=== PATIENT | female | born 1965 | race Caucasian/White ===

== ENCOUNTER → 2019-12-29 16:55 | Outpatient (CLI) | payer OTHER, MEDICAID, SELFPAY ==
[2019-12-29 18:02] LABS: Bacteria 0 SEEN /hpf (None Seen); Mucous, Urine 0 SEEN /hpf (<or=2+)
[2019-12-29 18:19] LABS: Color, Urine Straw (Yellow); Glucose, Dipstick Normal (Normal); Ketone-Dipstick Negative (Negative); Leukocyte Esterase-Dipstick 25 /ul (Negative); Nitrite-Dipstick Negative (Negative); Occult Blood-Urine Negative /ul (Negative); Protein-Dipstick Negative (Negative); Urine Bilirubin Dipstick Negative (Negative); Urine Clarity Clear (Clear); Urine Urobilinogen Normal (Normal)
[2019-12-29 18:22] LABS: Absolute Lymphocyte Count 3.42 X10^3/uL (0.83-4.51); Absolute Neutrophil Count 4.7 X10^3/uL (2.0-7.7); Basophil# 0.06 X10^3/uL; Basophil% 0.6 % (0-1); Eosinophils% 2.1 % (0-5); Hematocrit 43.5 % (37-47); Hemoglobin 14.3 g/dL (12.0-15.0); Lymphocyte # 3.42 X10^3/ul (4.0); Lymphocyte % 36.6 % (19-41); Mean Corp Hgb Conc 32.9 g/dL (32-36); Mean Corpuscular Volume 88.2 fL (81-99); Mean Platelet Vol. 10.5 fl (6.2-12.0); Monocyte# 0.88 X10^3/uL; Monocyte% 9.4 % (0-10); NRBC Flagged by Analyzer 0 % (0-5); Neutrophil # 4.73 X10^3/uL (2.7-7.7); Neutrophil % 50.8 % (47-70); Platelet Count 319 K/mm3 (150-450); RBC Distribution Width SD 41.6 fl (35.1-43.9); Red Blood Count 4.93 M/mm3 (4.2-5.4); White Blood Count 9.3 K/mm3 (4.4-11.0)
[2019-12-29 18:33] LABS: Squamous Epithelial Cells - UA 0-5 SEEN /hpf (5-10)
[2019-12-29 18:35] LABS: Red Blood Cells-Urine 0-5 SEEN /hpf (0-5); White Blood Cells 0-5 SEEN /hpf (0-5)
[2019-12-29 18:59] LABS: Vitamin B12 1342 pg/mL (211-911); Vitamin D,25 Hydroxy 45.3 ng/mL
[2019-12-29 19:09] LABS: ALB/GLOB Ratio 1.2 RATIO (0.9-2.4); AST(SGOT) 44 U/L (15-37); Alanine Aminotransfer ALT/SGPT 69 U/L (13-56); Albumin, Serum 4.3 g/dL (3.2-5.0); Alkaline Phosphatase 86 U/L (45-117); Anion Gap 7 (5-15); BUN 14 mg/dL (7-18); BUN/Creat Ratio 17.2 RATIO (10-20); Calcium,Total 9.5 mg/dL (8.5-10.1); Chloride 102 mmol/L (98-107); Cholesterol 148 mg/dL (200); Creatinine, Serum 0.81 mg/dL (0.55-1.02); EST Glomerular Filtration Rate 77 mL/min (>60); Est Glom Filt Rate - Afr Amer 93 mL/min (>60); Globulin 3.7 g/dL (2.2-4.2); Glucose 120 mg/dL (74-106); High Density Lipoprotein 41 mg/dL; Potassium 3.5 mmol/L (3.5-5.1); Sodium Level 138 mmol/L (136-145); Triglycerides 255 mg/dL; Very Low Density Lipoprotein 51 mg/dL (5-40)
[2019-12-29 19:15] LABS: Hemoglobin A1c 6.7 % (4.2-6.3)
[2020-01-02 11:33] LABS: Hepatitis B Surface Antibody Reactive; Hepatitis B Surface Antigen Non-Reactive (Nonreactive); Hepatitis C Antibody Non-Reactive (Nonreactive)
[2020-01-02 19:27] LABS: Vitamin B1, Thiamine 182.8 nmol/L (66.5-200.0)
== END ==
PROVIDERS: PCP Internal Medicine; Referring Provider Family Medicine; Visit Provider Family Medicine
DX: E55.9 Vitamin D deficiency, unspecified (principal); E53.9 Vitamin B deficiency, unspecified; E78.5 Hyperlipidemia, unspecified; I10 Essential (primary) hypertension; R73.09 Other abnormal glucose
CPT/HCPCS: 80053; 80061; 81001; 82306; 82607; 83036; 84425; 84443; 85025; 86706; 86803; 87340

== ENCOUNTER → 2020-02-16 11:00 | Outpatient (CLI) | payer OTHER, SELFPAY ==
[2020-02-16 12:26] LABS: Anion Gap 8 (5-15); BUN 17 mg/dL (7-18); BUN/Creat Ratio 20.8 RATIO (10-20); Calcium,Total 9.9 mg/dL (8.5-10.1); Chloride 103 mmol/L (98-107); Creatinine, Serum 0.82 mg/dL (0.55-1.02); EST Glomerular Filtration Rate 77 mL/min (>60); Est Glom Filt Rate - Afr Amer 93 mL/min (>60); Glucose 92 mg/dL (74-106); Potassium 4.2 mmol/L (3.5-5.1); Sodium Level 139 mmol/L (136-145)
== END ==
PROVIDERS: PCP Family Medicine; Referring Provider Family Medicine; Visit Provider Family Medicine
DX: I10 Essential (primary) hypertension (principal)
CPT/HCPCS: 36415; 80048

== ENCOUNTER → 2020-03-07 15:42 | Outpatient (CLI) | payer OTHER, SELFPAY ==
[2020-03-07 18:11] LABS: Anion Gap 10 (5-15); BUN 18 mg/dL (7-18); BUN/Creat Ratio 21.1 RATIO (10-20); Calcium,Total 9.7 mg/dL (8.5-10.1); Chloride 102 mmol/L (98-107); Creatinine, Serum 0.86 mg/dL (0.55-1.02); EST Glomerular Filtration Rate 73 mL/min (>60); Est Glom Filt Rate - Afr Amer 88 mL/min (>60); Glucose 124 mg/dL (74-106); Potassium 3.9 mmol/L (3.5-5.1); Sodium Level 138 mmol/L (136-145)
== END ==
PROVIDERS: PCP Family Medicine; Visit Provider Family Medicine
DX: I10 Essential (primary) hypertension (principal)
CPT/HCPCS: 36415; 80048

== ENCOUNTER → 2020-07-17 09:56 | Outpatient (CLI) | payer OTHER, SELFPAY ==
[2020-07-17 12:35] LABS: Hemoglobin A1c 6.2 % (3.8-5.6)
[2020-07-17 12:44] LABS: ALB/GLOB Ratio 1.2 RATIO (0.9-2.4); AST(SGOT) 46 U/L (15-37); Alanine Aminotransfer ALT/SGPT 66 U/L (13-56); Albumin, Serum 4.1 g/dL (3.2-5.0); Alkaline Phosphatase 68 U/L (45-117); Anion Gap 8 (5-15); BUN 13 mg/dL (7-18); BUN/Creat Ratio 16.6 RATIO (10-20); Calcium,Total 9.7 mg/dL (8.5-10.1); Chloride 107 mmol/L (98-107); Cholesterol 167 mg/dL (200); Creatinine, Serum 0.78 mg/dL (0.55-1.02); EST Glomerular Filtration Rate 81 mL/min (>60); Est Glom Filt Rate - Afr Amer 98 mL/min (>60); Globulin 3.3 g/dL (2.2-4.2); Glucose 129 mg/dL (74-106); High Density Lipoprotein 41 mg/dL; Potassium 4.3 mmol/L (3.5-5.1); Protein, Total 7.4 g/dL (6.4-8.2); Sodium Level 141 mmol/L (136-145); Triglycerides 311 mg/dL; Very Low Density Lipoprotein 62 mg/dL (5-40)
[2020-07-17 13:02] LABS: Microalbumin,Random Urine 13.6 mg/L (NO RANGE EST.); Microalbumin:Creatinine Ratio 14.5 mg/g CRE (<30 mg/g CRE)
[2020-07-23 15:27] LABS: Vitamin B1, Thiamine 173.3 nmol/L (66.5-200.0)
== END ==
PROVIDERS: PCP Family Medicine; Referring Provider Family Medicine; Visit Provider Family Medicine
DX: R94.5 Abnormal results of liver function studies (principal); E11.9 Type 2 diabetes mellitus without complications; E78.5 Hyperlipidemia, unspecified; E55.9 Vitamin D deficiency, unspecified
CPT/HCPCS: 36415; 80053; 80061; 82043; 82306; 82570; 83036; 84425

== ENCOUNTER → 2020-11-15 16:38 | Outpatient (CLI) | payer OTHER, SELFPAY ==
[2020-11-15 17:33] LABS: Absolute Lymphocyte Count 2.58 X10^3/uL (0.83-4.51); Absolute Neutrophil Count 4.6 X10^3/uL (2.0-7.7); Basophil# 0.04 X10^3/uL; Basophil% 0.5 % (0-1); Eosinophil# 0.14 X10^3/uL; Eosinophils% 1.8 % (0-5); Hemoglobin 13.2 g/dL (12.0-15.0); Lymphocyte # 2.58 X10^3/ul (4.0); Lymphocyte % 32.4 % (19-41); Mean Corp Hgb Conc 32.2 g/dL (32-36); Mean Corpuscular Hgb 28.6 pg (27.0-32.0); Mean Corpuscular Volume 88.9 fL (81-99); Mean Platelet Vol. 10.1 fl (6.2-12.0); Monocyte# 0.56 X10^3/uL; NRBC Flagged by Analyzer 0 % (0-5); Neutrophil # 4.57 X10^3/uL (2.7-7.7); Neutrophil % 57.3 % (47-70); Platelet Count 327 K/mm3 (150-450); RBC Distribution Width CV 13.1 % (11.6-14.6); RBC Distribution Width SD 42.7 fl (35.1-43.9); Red Blood Count 4.61 M/mm3 (4.2-5.4)
[2020-11-15 18:14] LABS: Vitamin D,25 Hydroxy 60.7 ng/mL
[2020-11-15 18:15] LABS: Hemoglobin A1c 6.7 % (3.8-5.6)
[2020-11-15 18:21] LABS: ALB/GLOB Ratio 1.2 RATIO (0.9-2.4); AST(SGOT) 58 U/L (15-37); Alanine Aminotransfer ALT/SGPT 75 U/L (13-56); Albumin, Serum 4.1 g/dL (3.2-5.0); Alkaline Phosphatase 78 U/L (45-117); Anion Gap 8 (5-15); BUN 19 mg/dL (7-18); BUN/Creat Ratio 17.9 RATIO (10-20); Calcium,Total 9.5 mg/dL (8.5-10.1); Chloride 103 mmol/L (98-107); Cholesterol 152 mg/dL (200); Creatinine, Serum 1.06 mg/dL (0.55-1.02); EST Glomerular Filtration Rate 57 mL/min (>60); Est Glom Filt Rate - Afr Amer 69 mL/min (>60); Globulin 3.4 g/dL (2.2-4.2); Glucose 187 mg/dL (74-106); High Density Lipoprotein 41 mg/dL; Potassium 3.9 mmol/L (3.5-5.1); Protein, Total 7.5 g/dL (6.4-8.2); Sodium Level 138 mmol/L (136-145); Triglycerides 332 mg/dL; Very Low Density Lipoprotein 66 mg/dL (5-40)
[2021-05-13 10:29] LABS: Vitamin B12 1209 pg/mL (211-911)
[2021-05-13 10:40] LABS: Microalbumin,Random Urine 7.8 mg/L (NO RANGE EST.); Microalbumin:Creatinine Ratio 12.2 mg/g CRE (<30 mg/g CRE)
[2021-05-19 03:06] LABS: VITAMIN B6 71.6 ug/L (2.0-32.8)
[2021-05-19 08:06] LABS: Vitamin B1, Thiamine 210.1 nmol/L (66.5-200.0)
== END ==
PROVIDERS: PCP Family Medicine; Referring Provider Family Medicine; Visit Provider Family Medicine
DX: I10 Essential (primary) hypertension (principal); E11.9 Type 2 diabetes mellitus without complications; E78.5 Hyperlipidemia, unspecified; E55.9 Vitamin D deficiency, unspecified
CPT/HCPCS: 36415; 80053; 80061; 82043; 82306; 82570; 82607; 83036; 84207; 84425; 85025

== ENCOUNTER → 2020-11-28 11:14 | Outpatient (CLI) | payer OTHER, SELFPAY ==
[2020-11-28 13:13] LABS: Anion Gap 8 (5-15); BUN 18 mg/dL (7-18); BUN/Creat Ratio 22.9 RATIO (10-20); Calcium,Total 10.3 mg/dL (8.5-10.1); Chloride 104 mmol/L (98-107); Creatinine, Serum 0.79 mg/dL (0.55-1.02); EST Glomerular Filtration Rate 80 mL/min (>60); Est Glom Filt Rate - Afr Amer 97 mL/min (>60); Glucose 87 mg/dL (74-106); Potassium 4.3 mmol/L (3.5-5.1); Sodium Level 135 mmol/L (136-145)
== END ==
PROVIDERS: PCP Family Medicine; Referring Provider Family Medicine; Visit Provider Family Medicine
DX: R94.4 Abnormal results of kidney function studies (principal)
CPT/HCPCS: 36415; 80048

== ENCOUNTER 2021-01-03 14:39 | Outpatient (RCR) | payer OTHER, SELFPAY ==
[2021-01-03] MEDS: COVID-19 VACC, MRNA(PFIZER)/PF 30 MCG/0.3 ML SYRINGE IM (18:01)
[2021-01-24] MEDS: COVID-19 VACC, MRNA(PFIZER)/PF 30 MCG/0.3 ML SYRINGE IM (17:50)
== END 2021-04-02 23:59 ==
LOC: IMMUN 14:39
PROVIDERS: PCP Family Medicine; Referring Provider Family Medicine; Visit Provider Family Medicine
DX: Z23 Encounter for immunization (principal)
CPT/HCPCS: 0001A; 0002A; 91300

== ENCOUNTER → 2021-05-13 08:31 | Outpatient (CLI) | payer OTHER, SELFPAY ==
[2021-03-05 11:35] VITALS: BMI 34.4
== END ==
PROVIDERS: PCP Family Medicine; Visit Provider Family Medicine
DX: R69 Illness, unspecified (principal)

== ENCOUNTER → 2021-05-15 16:27 | Outpatient (CLI) | payer OTHER, SELFPAY ==
[2021-03-05 11:35] VITALS: BMI 34.4
--- NOTE | 2021-05-15 16:39 | RAD_ITS ---
STUDY: X-RAY - LUMBAR SPINE REASON FOR EXAM: Female, 55 years old. Severe low back pain for 2 weeks with history of multiple prior lumbar spine surgery TECHNIQUE: 4 view(s) of the lumbar spine were obtained. COMPARISON: None FINDINGS: Normal lumbar lordosis. There is no substantial scoliosis. There is a normal alignment of the vertebrae. Bilateral pedicular screws and posterior fusion hardware at L5-S1 with disc implant. Laminectomy. Endplate sclerosis, spondylosis and disc space narrowing at L4-L5. Lesser amount of disc space narrowing at the remaining lumbar levels. There is no demonstrated fracture. Neurostimulator device extending from lower thoracic spine partially visualized. Cholecystectomy clips are present. RAD/L/S Spine Min 4 Views IMPRESSION: Degenerative and operative changes, as above. Electronically Signed: Jose Rafael Metcalf MD ([place]) at 17:21 EDT , Service support ,
[2021-05-15 17:29] LABS: Absolute Lymphocyte Count 2.83 X10^3/uL (0.83-4.51); Basophil# 0.05 X10^3/uL; Basophil% 0.6 % (0-1); Eosinophil# 0.25 X10^3/uL; Eosinophils% 3.1 % (0-5); Hematocrit 41.3 % (37-47); Hemoglobin 13.4 g/dL (12.0-15.0); Lymphocyte # 2.83 X10^3/ul (0.83-4.51); Lymphocyte % 35.6 % (19-41); Mean Corp Hgb Conc 32.4 g/dL (32-36); Mean Corpuscular Hgb 28.8 pg (27.0-32.0); Mean Corpuscular Volume 88.6 fL (81-99); Mean Platelet Vol. 10.1 fl (6.2-12.0); Monocyte% 10.1 % (0-10); NRBC Flagged by Analyzer 0 % (0-5); Neutrophil # 3.96 X10^3/uL (2.7-7.7); Neutrophil % 49.7 % (47-70); Platelet Count 319 K/mm3 (150-450); RBC Distribution Width CV 13.2 % (11.6-14.6); RBC Distribution Width SD 42.7 fl (35.1-43.9); Red Blood Count 4.66 M/mm3 (4.2-5.4)
[2021-05-15 17:58] LABS: Hemoglobin A1c 6.5 % (3.8-5.6)
[2021-05-15 18:12] LABS: ALB/GLOB Ratio 1.3 RATIO (0.9-2.4); AST(SGOT) 54 U/L (15-37); Alanine Aminotransfer ALT/SGPT 69 U/L (13-56); Albumin, Serum 4.2 g/dL (3.2-5.0); Alkaline Phosphatase 72 U/L (45-117); Anion Gap 5 (5-15); BUN 16 mg/dL (7-18); BUN/Creat Ratio 19.9 RATIO (10-20); Calcium,Total 9.6 mg/dL (8.5-10.1); Chloride 102 mmol/L (98-107); Cholesterol 202 mg/dL (200); EST Glomerular Filtration Rate 78 mL/min (>60); Est Glom Filt Rate - Afr Amer 94 mL/min (>60); Globulin 3.2 g/dL (2.2-4.2); Glucose 113 mg/dL (74-106); High Density Lipoprotein 43 mg/dL; Potassium 4.5 mmol/L (3.5-5.1); Protein, Total 7.4 g/dL (6.4-8.2); Sodium Level 139 mmol/L (136-145); Triglycerides 418 mg/dL
== END ==
PROVIDERS: PCP Family Medicine; Visit Provider Family Medicine
DX: I10 Essential (primary) hypertension (principal); E11.9 Type 2 diabetes mellitus without complications; E78.5 Hyperlipidemia, unspecified; E55.9 Vitamin D deficiency, unspecified; M51.36 Other intervertebral disc degeneration, lumbar region; M47.816 Spondylosis without myelopathy or radiculopathy, lumbar region; M48.061 Spinal stenosis, lumbar region without neurogenic claudication
CPT/HCPCS: 36415; 72110; 80053; 80061; 82306; 83036; 85025

== ENCOUNTER → 2021-06-14 | Outpatient (CLI) | payer OTHER, SELFPAY ==
[2021-06-18 16:59] LABS: HPV APTIMA, High Risk Negative (Negative); HPV Reflexed? YES, CHARGE PATIENT
== END | disposition home or self-care (01) ==
PROVIDERS: PCP Family Medicine; Referring Provider Registered Nurse; Visit Provider Registered Nurse
DX: Z12.4 Encounter for screening for malignant neoplasm of cervix (principal)
CPT/HCPCS: 87624; 88175; G0145

== ENCOUNTER 2021-12-09 09:30 | Outpatient (CLI) | payer OTHER, SELFPAY | END 2021-12-09 23:59 | disposition home or self-care (01) | LOC: MFPLAB 09:31 | PROVIDERS: PCP Family Medicine; Visit Provider Family Medicine | DX: R69 Illness, unspecified (principal) ==

== ENCOUNTER 2021-12-11 13:41 | Outpatient (CLI) | payer OTHER, SELFPAY ==
[2021-12-11 18:12] LABS: Absolute Lymphocyte Count 2.63 X10^3/uL (0.83-4.51); Absolute Neutrophil Count 3.6 X10^3/uL (2.0-7.7); Basophil# 0.04 X10^3/uL; Basophil% 0.6 % (0-1); Eosinophil# 0.15 X10^3/uL; Eosinophils% 2.1 % (0-5); Hematocrit 36.4 % (37-47); Hemoglobin 11.5 g/dL (12.0-15.0); Lymphocyte # 2.63 X10^3/ul (0.83-4.51); Lymphocyte % 37.5 % (19-41); Mean Corp Hgb Conc 31.6 g/dL (32-36); Mean Corpuscular Hgb 28.3 pg (27.0-32.0); Mean Corpuscular Volume 89.4 fL (81-99); Mean Platelet Vol. 10.7 fl (6.2-12.0); Monocyte# 0.55 X10^3/uL; Monocyte% 7.8 % (0-10); NRBC Flagged by Analyzer 0 % (0-5); Neutrophil # 3.62 X10^3/uL (2.7-7.7); Neutrophil % 51.7 % (47-70); Platelet Count 327 K/mm3 (150-450); RBC Distribution Width CV 13.1 % (11.6-14.6); RBC Distribution Width SD 42.5 fl (35.1-43.9); Red Blood Count 4.07 M/mm3 (4.2-5.4)
[2021-12-11 18:36] LABS: Vitamin B12 1401 pg/mL (211-911); Vitamin D,25 Hydroxy 61.8 ng/mL
[2021-12-11 18:46] LABS: ALB/GLOB Ratio 1.2 RATIO (0.9-2.4); AST(SGOT) 32 U/L (15-37); Alanine Aminotransfer ALT/SGPT 45 U/L (13-56); Albumin, Serum 4.1 g/dL (3.2-5.0); Alkaline Phosphatase 68 U/L (45-117); Anion Gap 8 (5-15); BUN 13 mg/dL (7-18); Calcium,Total 9.6 mg/dL (8.5-10.1); Chloride 104 mmol/L (98-107); Cholesterol 123 mg/dL (200); Creatinine, Serum 0.76 mg/dL (0.55-1.02); EST Glomerular Filtration Rate 82 mL/min (>60); Est Glom Filt Rate - Afr Amer 100 mL/min (>60); Globulin 3.4 g/dL (2.2-4.2); Glucose 82 mg/dL (74-106); High Density Lipoprotein 43 mg/dL; Protein, Total 7.5 g/dL (6.4-8.2); Sodium Level 137 mmol/L (136-145); Thyroid Stim Hormone (TSH) 2.14 uIU/mL (0.358-3.74); Triglycerides 225 mg/dL; Very Low Density Lipoprotein 45 mg/dL (5-40)
[2021-12-11 20:28] LABS: Hemoglobin A1c 6.2 % (3.8-5.6)
[2021-12-13 15:03] LABS: Ferritin 86 ng/mL (8-252); Iron 74 ug/dL (50-170); Iron Binding Capacity,Total 458 ug/dL (250-450); PERCENT IRON SATURATION 16.2 % (15.0-55.0)
[2021-12-26 19:07] LABS: VITAMIN B6 149.6 ug/L (2.0-32.8)
[2021-12-26 19:10] LABS: Vitamin B1, Thiamine 158.1 nmol/L (66.5-200.0)
== END 2021-12-11 23:59 | disposition home or self-care (01) ==
LOC: MFPLAB 13:42
PROVIDERS: PCP Family Medicine; Referring Provider Family Medicine; Visit Provider Family Medicine
DX: E11.59 Type 2 diabetes mellitus with other circulatory complications (principal); E11.69 Type 2 diabetes mellitus with other specified complication; E53.9 Vitamin B deficiency, unspecified; E55.9 Vitamin D deficiency, unspecified; D64.9 Anemia, unspecified
CPT/HCPCS: 36415; 80053; 80061; 82306; 82607; 82728; 83036; 83540; 83550; 84207; 84425; 84443; 85025

== ENCOUNTER → 2022-05-09 | Outpatient (CLI) | payer OTHER, SELFPAY ==
[2022-05-09 10:03] LABS: Absolute Lymphocyte Count 2.41 X10^3/uL (0.83-4.51); Absolute Neutrophil Count 3.5 X10^3/uL (2.0-7.7); Basophil# 0.05 X10^3/uL; Basophil% 0.7 % (0-1); Eosinophil# 0.18 X10^3/uL; Eosinophils% 2.6 % (0-5); Hematocrit 39.3 % (37-47); Hemoglobin 12.5 g/dL (12.0-15.0); Lymphocyte # 2.41 X10^3/ul (0.83-4.51); Lymphocyte % 35.2 % (19-41); Mean Corp Hgb Conc 31.8 g/dL (32-36); Mean Corpuscular Hgb 28.5 pg (27.0-32.0); Mean Corpuscular Volume 89.5 fL (81-99); Mean Platelet Vol. 10.1 fl (6.2-12.0); Monocyte# 0.69 X10^3/uL; Monocyte% 10.1 % (0-10); NRBC Flagged by Analyzer 0 % (0-5); Neutrophil # 3.47 X10^3/uL (2.7-7.7); Neutrophil % 50.7 % (47-70); Platelet Count 298 K/mm3 (150-450); RBC Distribution Width CV 14.1 % (11.6-14.6); RBC Distribution Width SD 46.3 fl (35.1-43.9); Red Blood Count 4.39 M/mm3 (4.2-5.4); White Blood Count 6.9 K/mm3 (4.4-11.0)
[2022-05-09 10:46] LABS: ALB/GLOB Ratio 1.2 RATIO (0.9-2.4); AST(SGOT) 38 U/L (15-37); Alanine Aminotransfer ALT/SGPT 54 U/L (13-56); Albumin, Serum 4.1 g/dL (3.2-5.0); Alkaline Phosphatase 67 U/L (45-117); Anion Gap 8 (5-15); BUN 17 mg/dL (7-18); BUN/Creat Ratio 23.2 RATIO (10-20); Calcium,Total 9.5 mg/dL (8.5-10.1); Chloride 105 mmol/L (98-107); Cholesterol 186 mg/dL (200); Creatinine, Serum 0.73 mg/dL (0.55-1.02); EST Glomerular Filtration Rate 86 mL/min (>60); Est Glom Filt Rate - Afr Amer 105 mL/min (>60); Globulin 3.4 g/dL (2.2-4.2); Glucose 133 mg/dL (74-106); High Density Lipoprotein 45 mg/dL; Potassium 4.3 mmol/L (3.5-5.1); Protein, Total 7.5 g/dL (6.4-8.2); Sodium Level 137 mmol/L (136-145); Triglycerides 217 mg/dL; Very Low Density Lipoprotein 43 mg/dL (5-40)
[2022-05-09 10:47] LABS: Vitamin D,25 Hydroxy 48.2 ng/mL
[2022-05-09 14:57] LABS: Hemoglobin A1c 6.1 % (3.8-5.6)
== END | disposition home or self-care (01) ==
LOC: MFPLAB 08:54
PROVIDERS: PCP Family Medicine; Referring Provider Family Medicine; Visit Provider Family Medicine
DX: E11.59 Type 2 diabetes mellitus with other circulatory complications (principal); E11.69 Type 2 diabetes mellitus with other specified complication; E55.9 Vitamin D deficiency, unspecified
CPT/HCPCS: 36415; 80053; 80061; 82306; 83036; 85025

== ENCOUNTER → 2022-08-14 | Outpatient (CLI) | payer OTHER, SELFPAY | END | disposition home or self-care (01) | PROVIDERS: PCP Family Medicine; Visit Provider Family Medicine | DX: Z20.822 Contact with and (suspected) exposure to COVID-19 (principal) | CPT/HCPCS: 87635; U0003; U0005 ==

== ENCOUNTER → 2022-12-02 | Outpatient (CLI) | payer OTHER, SELFPAY | END | disposition home or self-care (01) | LOC: MFPLAB 09:50 | PROVIDERS: PCP Family Medicine; Referring Provider Family Medicine; Visit Provider Family Medicine | DX: R69 Illness, unspecified (principal) ==

== ENCOUNTER 2022-12-08 09:33 | Outpatient (CLI) | payer OTHER, SELFPAY ==
[2022-12-08 12:17] LABS: Absolute Lymphocyte Count 2.16 X10^3/uL (0.83-4.51); Absolute Neutrophil Count 4.1 X10^3/uL (2.0-7.7); Basophil# 0.06 X10^3/uL; Basophil% 0.8 % (0-1); Eosinophil# 0.19 X10^3/uL; Eosinophils% 2.7 % (0-5); Hematocrit 40.2 % (37-47); Hemoglobin 12.7 g/dL (12.0-15.0); Lymphocyte # 2.16 X10^3/ul (0.83-4.51); Lymphocyte % 30.3 % (19-41); Mean Corp Hgb Conc 31.6 g/dL (32-36); Mean Corpuscular Hgb 27.9 pg (27.0-32.0); Mean Corpuscular Volume 88.2 fL (81-99); Mean Platelet Vol. 10.5 fl (6.2-12.0); Monocyte# 0.63 X10^3/uL; Monocyte% 8.8 % (0-10); NRBC Flagged by Analyzer 0 % (0-5); Neutrophil # 4.06 X10^3/uL (2.7-7.7); Platelet Count 296 K/mm3 (150-450); RBC Distribution Width CV 13.3 % (11.6-14.6); RBC Distribution Width SD 43.2 fl (35.1-43.9); Red Blood Count 4.56 M/mm3 (4.2-5.4); White Blood Count 7.1 K/mm3 (4.4-11.0)
[2022-12-08 12:41] LABS: Vitamin B12 838 pg/mL (211-911); Vitamin D,25 Hydroxy 45.8 ng/mL
[2022-12-08 12:46] LABS: ALB/GLOB Ratio 1.1 RATIO (0.9-2.4); AST(SGOT) 67 U/L (15-37); Alanine Aminotransfer ALT/SGPT 65 U/L (13-56); Alkaline Phosphatase 87 U/L (45-117); Anion Gap 7 (5-15); BUN 23 mg/dL (7-18); BUN/Creat Ratio 26.4 RATIO (10-20); Calcium,Total 9.5 mg/dL (8.5-10.1); Chloride 106 mmol/L (98-107); Cholesterol 153 mg/dL (200); Creatinine, Serum 0.87 mg/dL (0.55-1.02); EST Glomerular Filtration Rate 71 mL/min (>60); Est Glom Filt Rate - Afr Amer 86 mL/min (>60); Globulin 3.7 g/dL (2.2-4.2); Glucose 150 mg/dL (74-106); High Density Lipoprotein 41 mg/dL; Protein, Total 7.7 g/dL (6.4-8.2); Sodium Level 139 mmol/L (136-145); T4 Free Direct 0.85 ng/dL (0.76-1.46); Thyroid Stim Hormone (TSH) 2.27 uIU/mL (0.358-3.74); Triglycerides 198 mg/dL; Very Low Density Lipoprotein 40 mg/dL (5-40)
[2022-12-08 12:49] LABS: Hemoglobin A1c 6.8 % (3.8-5.6); Microalbumin,Random Urine 46.6 mg/L (NO RANGE EST.); Microalbumin:Creatinine Ratio 41.6 mg/g CRE (<30 mg/g CRE)
[2022-12-12 19:18] LABS: VITAMIN B6 41.3 ug/L (3.4-65.2); Vitamin B1, Thiamine 144.7 nmol/L (66.5-200.0)
== END 2022-12-08 23:59 | disposition home or self-care (01) ==
LOC: MFPLAB 09:33
PROVIDERS: PCP Family Medicine; Visit Provider Family Medicine
DX: E11.59 Type 2 diabetes mellitus with other circulatory complications (principal); E53.9 Vitamin B deficiency, unspecified; E55.9 Vitamin D deficiency, unspecified; Z01.419 Encounter for gynecological examination (general) (routine) without abnormal findings
CPT/HCPCS: 80053; 80061; 82043; 82306; 82570; 82607; 83036; 84207; 84425; 84439; 84443; 85025

== ENCOUNTER → 2023-04-07 | Outpatient (CLI) | payer OTHER, SELFPAY ==
[2023-04-07 12:20] LABS: Absolute Lymphocyte Count 2.26 X10^3/uL (0.83-4.51); Absolute Neutrophil Count 3.9 X10^3/uL (2.0-7.7); Basophil# 0.08 X10^3/uL; Basophil% 1.1 % (0-1); Eosinophil# 0.18 X10^3/uL; Eosinophils% 2.5 % (0-5); Lymphocyte # 2.26 X10^3/ul (0.83-4.51); Lymphocyte % 31.9 % (19-41); Mean Corp Hgb Conc 31.6 g/dL (32-36); Mean Corpuscular Volume 85.6 fL (81-99); Mean Platelet Vol. 10.4 fl (6.2-12.0); Monocyte# 0.59 X10^3/uL; Monocyte% 8.3 % (0-10); NRBC Flagged by Analyzer 0 % (0-5); Neutrophil # 3.93 X10^3/uL (2.7-7.7); Neutrophil % 55.6 % (47-70); Platelet Count 323 K/mm3 (150-450); RBC Distribution Width CV 14.3 % (11.6-14.6); RBC Distribution Width SD 44.8 fl (35.1-43.9); Red Blood Count 4.44 M/mm3 (4.2-5.4); White Blood Count 7.1 K/mm3 (4.4-11.0)
[2023-04-07 12:45] LABS: Hemoglobin A1c 7.1 % (3.8-5.6)
[2023-04-07 12:54] LABS: Vitamin B12 1313 pg/mL (211-911); Vitamin D,25 Hydroxy 63.3 ng/mL
[2023-04-07 13:01] LABS: ALB/GLOB Ratio 1.1 RATIO (0.9-2.4); AST(SGOT) 79 U/L (15-37); Alanine Aminotransfer ALT/SGPT 70 U/L (13-56); Albumin, Serum 4.1 g/dL (3.2-5.0); Alkaline Phosphatase 106 U/L (45-117); Anion Gap 10 (5-15); BUN 12 mg/dL (7-18); BUN/Creat Ratio 15.1 RATIO (10-20); Calcium,Total 9.3 mg/dL (8.5-10.1); Chloride 105 mmol/L (98-107); Cholesterol 157 mg/dL (200); EST Glomerular Filtration Rate 78 mL/min (>60); Est Glom Filt Rate - Afr Amer 95 mL/min (>60); Globulin 3.6 g/dL (2.2-4.2); Glucose 146 mg/dL (74-106); High Density Lipoprotein 43 mg/dL; Potassium 4.3 mmol/L (3.5-5.1); Protein, Total 7.7 g/dL (6.4-8.2); Sodium Level 138 mmol/L (136-145); Thyroid Stim Hormone (TSH) 1.86 uIU/mL (0.358-3.74); Triglycerides 224 mg/dL; Very Low Density Lipoprotein 45 mg/dL (5-40)
[2023-04-10 19:07] LABS: VITAMIN B6 33.6 ug/L (3.4-65.2)
== END | disposition home or self-care (01) ==
LOC: MFPLAB 10:18
PROVIDERS: PCP Family Medicine; Visit Provider Family Medicine
DX: E11.9 Type 2 diabetes mellitus without complications (principal); E55.9 Vitamin D deficiency, unspecified
CPT/HCPCS: 36415; 80053; 80061; 82306; 82607; 83036; 84207; 84425; 84443; 85025

== ENCOUNTER 2023-08-18 09:55 | Outpatient (CLI) | payer OTHER, SELFPAY ==
[2023-08-18 12:55] LABS: Vitamin B12 818 pg/mL (211-911); Vitamin D,25 Hydroxy 64.1 ng/mL
[2023-08-18 12:57] LABS: T4 Free Direct 0.83 ng/dL (0.76-1.46); Thyroid Stim Hormone (TSH) 1.38 uIU/mL (0.358-3.74)
[2023-08-22 01:06] LABS: Vitamin B1, Thiamine 154.4 nmol/L (66.5-200.0)
== END 2023-08-18 23:59 | disposition home or self-care (01) ==
LOC: MFPLAB 09:56
PROVIDERS: PCP Family Medicine; Visit Provider Family Medicine
DX: E53.9 Vitamin B deficiency, unspecified (principal); E11.59 Type 2 diabetes mellitus with other circulatory complications; I10 Essential (primary) hypertension; E55.9 Vitamin D deficiency, unspecified
CPT/HCPCS: 36415; 82306; 82607; 84425; 84439; 84443

== ENCOUNTER → 2023-10-01 | Outpatient (CLI) | payer OTHER, SELFPAY ==
--- NOTE | 2023-10-01 14:53 | BI_ITS ---
MAMMOGRAPHY - BILATERAL SCREENING REASON FOR EXAM: Female, 58 years old. Routine annual screening examination. PERTINENT HISTORY: Aunt with breast cancer. TECHNIQUE: Digital bilateral breast francine (3D mammographic acquisition) in the CC and MLO projections. 2-D mediolateral oblique (MLO) and craniocaudad (CC) views of both breasts were obtained. CAD: Full Field Digital Mammography with Computer Added Detection was performed. COMPARISON: Comparison is made with prior outside examination dated May 14, 2018. FINDINGS: Breast Composition: The breasts are heterogeneously dense, which may obscure small masses. There are no dominant masses or suspicious calcifications. Stable asymmetry of breast tissue where more breast tissue is seen in the upper lateral aspect of the left breast as compared to the right side. No other significant abnormalities are identified. BI/SCRN MAMM (CAD)W/FRANCINE BILAT IMPRESSION: Stable bilateral screening mammogram. Yearly follow-up mammogram recommended. (A) ASSESSMENT CATEGORY: BIRADS Category 2: Benign. A letter regarding these results will be sent to the patient by the facility within 30 days. Approximately 10% of breast cancers are not detected by mammography. A normal mammogram should not delay biopsy of a clinically suspicious abnormality. [id number] Electronically Signed: Harrison Amaya MD at 9:03 EST ,
== END | disposition home or self-care (01) ==
LOC: OPBI 14:51
PROVIDERS: PCP Family Medicine; Referring Provider Family Medicine; Visit Provider Family Medicine
DX: Z12.31 Encounter for screening mammogram for malignant neoplasm of breast (principal)
CPT/HCPCS: 77063; 77067

== ENCOUNTER → 2023-12-29 | Outpatient (CLI) | payer OTHER, SELFPAY ==
[2023-12-29 12:39] LABS: Absolute Neutrophil Count 3.3 X10^3/uL (2.0-7.7); Basophil# 0.06 X10^3/uL; Eosinophil# 0.13 X10^3/uL; Eosinophils% 2.1 % (0-5); Hematocrit 37.2 % (37-47); Hemoglobin 12.1 g/dL (12.0-15.0); Lymphocyte % 36.7 % (19-41); Mean Corp Hgb Conc 32.5 g/dL (32-36); Mean Corpuscular Hgb 28.6 pg (27.0-32.0); Mean Corpuscular Volume 87.9 fL (81-99); Mean Platelet Vol. 10.3 fl (6.2-12.0); Monocyte# 0.45 X10^3/uL; Monocyte% 7.2 % (0-10); NRBC Flagged by Analyzer 0 % (0-5); Neutrophil # 3.27 X10^3/uL (2.7-7.7); Neutrophil % 52.2 % (47-70); Platelet Count 283 K/mm3 (150-450); RBC Distribution Width CV 13.2 % (11.6-14.6); RBC Distribution Width SD 42.6 fl (35.1-43.9); Red Blood Count 4.23 M/mm3 (4.2-5.4); White Blood Count 6.3 K/mm3 (4.4-11.0)
[2023-12-29 13:19] LABS: Vitamin B12 930 pg/mL (211-911); Vitamin D,25 Hydroxy 38.9 ng/mL
[2023-12-29 13:33] LABS: ALB/GLOB Ratio 1.2 RATIO (0.9-2.4); AST(SGOT) 23 U/L (15-37); Alanine Aminotransfer ALT/SGPT 38 U/L (13-56); Alkaline Phosphatase 76 U/L (45-117); Anion Gap 4 (5-15); BUN 16 mg/dL (7-18); BUN/Creat Ratio 22.5 RATIO (10-20); Calcium,Total 9.4 mg/dL (8.5-10.1); Chloride 105 mmol/L (98-107); Cholesterol 142 mg/dL (200); Creatinine, Serum 0.71 mg/dL (0.55-1.02); EST Glomerular Filtration Rate 89 mL/min (>60); Est Glom Filt Rate - Afr Amer 108 mL/min (>60); Globulin 3.4 g/dL (2.2-4.2); Glucose 100 mg/dL (74-106); High Density Lipoprotein 53 mg/dL; Phosphorus 3.4 mg/dL (2.5-4.9); Potassium 3.9 mmol/L (3.5-5.1); Protein, Total 7.4 g/dL (6.4-8.2); Sodium Level 137 mmol/L (136-145); Thyroid Stim Hormone (TSH) 1.42 uIU/mL (0.358-3.74); Triglycerides 154 mg/dL; Very Low Density Lipoprotein 31 mg/dL (5-40)
[2023-12-29 13:37] LABS: Microalbumin,Random Urine < 5.0 mg/L (NO RANGE EST.)
[2023-12-29 14:34] LABS: Hemoglobin A1c 6.4 % (3.8-5.6)
[2024-01-02 10:08] LABS: Vitamin B1, Thiamine 254.4 nmol/L (66.5-200.0)
== END | disposition home or self-care (01) ==
LOC: MFPLAB 11:10
PROVIDERS: PCP Family Medicine; Visit Provider Family Medicine
DX: E11.9 Type 2 diabetes mellitus without complications (principal); E53.9 Vitamin B deficiency, unspecified; E55.9 Vitamin D deficiency, unspecified
CPT/HCPCS: 36415; 80053; 80061; 82043; 82306; 82570; 82607; 83036; 84100; 84425; 84443; 85025

== ENCOUNTER → 2024-05-03 | Outpatient (CLI) | payer OTHER, SELFPAY ==
[2024-05-03 10:43] LABS: Bacteria 0 SEEN /hpf (None Seen); Mucous, Urine 0 SEEN /hpf (<or=2+); Red Blood Cells-Urine 0 SEEN /hpf (0-5); Squamous Epithelial Cells - UA 0 SEEN /hpf (5-10); White Blood Cells 0 SEEN /hpf (0-5)
[2024-05-03 12:14] LABS: Color, Urine Yellow (Yellow); Glucose, Dipstick Normal (Normal); Ketone-Dipstick Negative (Negative); Leukocyte Esterase-Dipstick Negative /ul (Negative); Nitrite-Dipstick Negative (Negative); Occult Blood-Urine 10 /ul (Negative); Protein-Dipstick Negative (Negative); Urine Bilirubin Dipstick Negative (Negative); Urine Clarity Clear (Clear); Urine Urobilinogen Normal (Normal)
[2024-05-03 12:39] LABS: ALB/GLOB Ratio 1.1 RATIO (0.9-2.4); AST(SGOT) 32 U/L (15-37); Alanine Aminotransfer ALT/SGPT 43 U/L (13-56); Albumin, Serum 4.1 g/dL (3.2-5.0); Alkaline Phosphatase 82 U/L (45-117); Anion Gap 5 (5-15); BUN 13 mg/dL (7-18); BUN/Creat Ratio 16.8 RATIO (10-20); Calcium,Total 9.7 mg/dL (8.5-10.1); Chloride 105 mmol/L (98-107); Cholesterol 159 mg/dL (200); Creatinine, Serum 0.77 mg/dL (0.55-1.02); EST Glomerular Filtration Rate 81 mL/min (>60); Est Glom Filt Rate - Afr Amer 98 mL/min (>60); Globulin 3.6 g/dL (2.2-4.2); Glucose 106 mg/dL (74-106); High Density Lipoprotein 49 mg/dL; Potassium 4.2 mmol/L (3.5-5.1); Protein, Total 7.7 g/dL (6.4-8.2); Sodium Level 138 mmol/L (136-145); Triglycerides 287 mg/dL; Very Low Density Lipoprotein 57 mg/dL (5-40)
[2024-05-03 12:48] LABS: Absolute Lymphocyte Count 2.87 X10^3/uL (0.83-4.51); Basophil# 0.05 X10^3/uL; Basophil% 0.6 % (0-1); Eosinophils% 2.6 % (0-5); Hematocrit 40.3 % (37-47); Lymphocyte # 2.87 X10^3/ul (0.83-4.51); Lymphocyte % 36.8 % (19-41); Mean Corp Hgb Conc 32.3 g/dL (32-36); Mean Corpuscular Hgb 27.6 pg (27.0-32.0); Mean Corpuscular Volume 85.6 fL (81-99); Mean Platelet Vol. 10.8 fl (6.2-12.0); Monocyte# 0.58 X10^3/uL; Monocyte% 7.4 % (0-10); NRBC Flagged by Analyzer 0 % (0-5); Neutrophil # 4.04 X10^3/uL (2.7-7.7); Platelet Count 310 K/mm3 (150-450); RBC Distribution Width CV 13.3 % (11.6-14.6); RBC Distribution Width SD 41.2 fl (35.1-43.9); Red Blood Count 4.71 M/mm3 (4.2-5.4); White Blood Count 7.8 K/mm3 (4.4-11.0)
[2024-05-03 13:00] LABS: Vitamin B12 935 pg/mL (211-911); Vitamin D,25 Hydroxy 29.9 ng/mL
[2024-05-03 15:12] LABS: Hemoglobin A1c 6.5 % (3.8-5.6)
[2024-05-07 17:07] LABS: VITAMIN B6 25.4 ug/L (3.4-65.2); Vitamin B1, Thiamine 153.7 nmol/L (66.5-200.0)
== END | disposition home or self-care (01) ==
LOC: MTLAB 10:35
PROVIDERS: PCP Family Medicine; Referring Provider Family Medicine; Visit Provider Family Medicine
DX: E11.59 Type 2 diabetes mellitus with other circulatory complications (principal); E55.9 Vitamin D deficiency, unspecified; E53.9 Vitamin B deficiency, unspecified
CPT/HCPCS: 36415; 80053; 80061; 81001; 82306; 82607; 83036; 84207; 84425; 85025

== ENCOUNTER → 2024-08-29 | Outpatient (CLI) | payer OTHER, SELFPAY ==
[2024-08-29 10:29] LABS: Vitamin D,25 Hydroxy 41.4 ng/mL
[2024-08-29 11:39] LABS: Hemoglobin A1c 6.8 % (3.8-5.6)
== END | disposition home or self-care (01) ==
LOC: MFPLAB 08:35
PROVIDERS: PCP Family Medicine; Visit Provider Family Medicine
DX: E11.8 Type 2 diabetes mellitus with unspecified complications (principal); E55.9 Vitamin D deficiency, unspecified
CPT/HCPCS: 36415; 82306; 83036

== ENCOUNTER → 2024-09-19 | Outpatient (CLI) | payer OTHER, SELFPAY ==
[2024-09-29 17:08] LABS: HPV APTIMA, High Risk Negative (Negative)
[2024-09-30 08:15] LABS: HPV Reflexed? YES, CHARGE PATIENT
== END | disposition home or self-care (01) ==
LOC: MFPLAB 14:47 → LABSPEC 14:48
PROVIDERS: PCP Family Medicine; Visit Provider Family Medicine
DX: Z12.4 Encounter for screening for malignant neoplasm of cervix (principal)
CPT/HCPCS: 87624; 88175; G0145

== ENCOUNTER → 2024-10-07 | Outpatient (CLI) | payer OTHER, SELFPAY ==
--- NOTE | 2024-10-07 12:54 | BI_ITS ---
MAMMOGRAPHY - BILATERAL SCREENING REASON FOR EXAM: Female, 59 years old. Routine annual screening examination. PERTINENT HISTORY: Aunt with breast cancer. TECHNIQUE: Digital bilateral breast francine (3D mammographic acquisition) in the CC and MLO projections. 2-D mediolateral oblique (MLO) and craniocaudad (CC) views of both breasts were obtained. CAD: Full Field Digital Mammography with Computer Added Detection was performed. COMPARISON: Comparison is made with prior study dated October 01, 2023. FINDINGS: Breast Composition: The breasts are heterogeneously dense, which may obscure small masses. There are no dominant masses or suspicious calcifications. Stable asymmetry of breast tissue where more breast tissue is seen in the upper lateral aspect of the left breast as compared to the right side. No other significant abnormalities are identified. There has been no significant change since the prior study. BI/SCRN MAMM (CAD)W/FRANCINE BILAT IMPRESSION: Stable bilateral screening mammogram. Yearly follow-up mammogram recommended. (A) ASSESSMENT CATEGORY: BIRADS Category 2: Benign. A letter regarding these results will be sent to the patient by the facility within 30 days. Approximately 10% of breast cancers are not detected by mammography. A normal mammogram should not delay biopsy of a clinically suspicious abnormality. [id number] Electronically Signed: Harrison Amaya MD at 13:30 EST ,
== END | disposition home or self-care (01) ==
LOC: OPBI 12:53
PROVIDERS: PCP Family Medicine; Referring Provider Family Medicine; Visit Provider Family Medicine
DX: Z12.31 Encounter for screening mammogram for malignant neoplasm of breast (principal)
CPT/HCPCS: 77063; 77067

== ENCOUNTER → 2024-10-25 | Outpatient (CLI) | payer OTHER, SELFPAY ==
[2024-10-25 16:53] LABS: Absolute Lymphocyte Count 2.46 X10^3/uL (0.83-4.51); Absolute Neutrophil Count 4.9 X10^3/uL (2.0-7.7); Basophil# 0.05 X10^3/uL; Basophil% 0.6 % (0-1); Eosinophil# 0.26 X10^3/uL; Eosinophils% 3.1 % (0-5); Hematocrit 38.8 % (37-47); Hemoglobin 12.6 g/dL (12.0-15.0); Lymphocyte # 2.46 X10^3/ul (0.83-4.51); Lymphocyte % 28.9 % (19-41); Mean Corp Hgb Conc 32.5 g/dL (32-36); Mean Corpuscular Hgb 27.8 pg (27.0-32.0); Mean Corpuscular Volume 85.5 fL (81-99); Mean Platelet Vol. 10.9 fl (6.2-12.0); Monocyte# 0.76 X10^3/uL; Monocyte% 8.9 % (0-10); NRBC Flagged by Analyzer 0 % (0-5); Neutrophil # 4.93 X10^3/uL (2.7-7.7); Neutrophil % 57.8 % (47-70); Platelet Count 298 K/mm3 (150-450); RBC Distribution Width CV 13.3 % (11.6-14.6); RBC Distribution Width SD 41.2 fl (35.1-43.9); Red Blood Count 4.54 M/mm3 (4.2-5.4); White Blood Count 8.5 K/mm3 (4.4-11.0)
[2024-10-25 17:14] LABS: Vitamin B12 991 pg/mL (211-911); Vitamin D,25 Hydroxy 41.8 ng/mL
[2024-10-25 17:30] LABS: Microalbumin,Random Urine 5.6 mg/L (NO RANGE EST.); Microalbumin:Creatinine Ratio 17.2 mg/g CRE (<30 mg/g CRE)
[2024-10-25 18:20] LABS: Hemoglobin A1c 6.7 % (3.8-5.6)
[2024-10-25 21:57] LABS: ALB/GLOB Ratio 1.2 RATIO (0.9-2.4); AST(SGOT) 50 U/L (15-37); Alanine Aminotransfer ALT/SGPT 68 U/L (13-56); Albumin, Serum 3.9 g/dL (3.2-5.0); Alkaline Phosphatase 78 U/L (45-117); Anion Gap 11 (5-15); BUN 16 mg/dL (7-18); BUN/Creat Ratio 20.7 RATIO (10-20); Calcium,Total 9.5 mg/dL (8.5-10.1); Chloride 104 mmol/L (98-107); Cholesterol 158 mg/dL (200); Creatinine, Serum 0.77 mg/dL (0.55-1.02); EST Glomerular Filtration Rate 81 mL/min (>60); Est Glom Filt Rate - Afr Amer 97 mL/min (>60); Globulin 3.2 g/dL (2.2-4.2); Glucose 161 mg/dL (74-106); High Density Lipoprotein 43 mg/dL; Phosphorus 3.4 mg/dL (2.5-4.9); Potassium 3.9 mmol/L (3.5-5.1); Protein, Total 7.1 g/dL (6.4-8.2); Sodium Level 140 mmol/L (136-145); Triglycerides 344 mg/dL; Very Low Density Lipoprotein 69 mg/dL (5-40)
[2024-10-30 16:07] LABS: Vitamin B1, Thiamine 243.3 nmol/L (66.5-200.0)
== END | disposition home or self-care (01) ==
LOC: MFPLAB 15:09
PROVIDERS: PCP Family Medicine; Referring Provider Family Medicine; Visit Provider Family Medicine
DX: E11.59 Type 2 diabetes mellitus with other circulatory complications (principal); E11.69 Type 2 diabetes mellitus with other specified complication; E53.9 Vitamin B deficiency, unspecified; E55.9 Vitamin D deficiency, unspecified
CPT/HCPCS: 36415; 80053; 80061; 82043; 82306; 82570; 82607; 83036; 84100; 84425; 85025

== ENCOUNTER 2024-11-24 10:04 | Observation (INO) | payer OTHER, SELFPAY ==
[2024-11-24] VITALS (10 sets, daily range): BP systolic 97–133; BP diastolic 67–81; PULSE 73–109; RESP 14–16; TEMP 35–36.9; O2SAT 93–96; BMI 33.3; BMI 31.9
--- NOTE | 2024-11-24 10:50 | CT_ITS ---
PROCEDURE: ABDOMEN/PELVIS W IV CONT ONLY REASON FOR EXAM: Abdominal pain and cramping since the morning. TECHNIQUE: Abdomen and pelvis CT with intravenous contrast. IV CONTRAST: COMPARISON: None. FINDINGS: Lung bases: Minimal increased linear markings at the lung bases suggestive of mild linear atelectasis and/or scarring. Coronary artery calcification. Liver: Diffuse fatty infiltration. There is a 1.7 cm cyst in the medial aspect of the right lobe of the liver adjacent to the caudate lobe. Is also evidence of a 1.8 cm cyst in the inferior medial aspect of the right lobe of the liver. Scattered 1 cm cysts are also seen. Gallbladder: Surgically absent. Spleen: Unremarkable. Pancreas: Unremarkable. Adrenals: Unremarkable. Kidneys: Unremarkable. Bladder: Unremarkable. Reproductive Organs: Unremarkable. Bowel: Small hiatal hernia. A large amount of fecal material is seen in the colon. Appendix: The appendix is not identified. There is no inflammatory process identified in the right lower quadrant to suggest appendicitis. Lymph nodes: No suspicious lymph node enlargement. Vasculature: Mild diffuse atherosclerotic calcifications are noted. Peritoneum / Retroperitoneum: No ascites. No free air. Bones: Degenerative changes of the spine. Prior fusion at the L5-S1 level. A spinal cord stimulator device is seen. CT/Abdomen/Pelvis W IV Cont ONLY IMPRESSION: Large amount of fecal material is seen in the colon. Fatty infiltration of the liver. Hepatic cysts. Status post cholecystectomy. One or more dose reduction techniques were used (e.g., Automated exposure contr ol, adjustment of the mA and/or kV according to patient size, use of iterative reconstruction technique). Reading Location: [place] [id number]
--- NOTE | 2024-11-24 10:51 | ED.VIS.GI ---
HPI HPI - GI History of Present Illness Chief Complaint: Abd Pain Detail of Chief Complaint: With nausea no vomiting. No diarrhea. No fever. No dysuria. Informant: patient Abdominal Pain/Flank Pain Onset: Today and Hours Context: Gradual Onset Timing: Continuous Quality: Cramping Location: Diffuse Current Severity: Moderate Maximum Severity: Moderate Worsened by: Nothing Relieved by: Nothing Nausea/Vomiting/Emesis GI Symptom: Positive for Nausea; Negative for Vomiting Severity: Moderate Diarrhea/Melena/Hematochezia GI Symptom: Negative for Diarrhea, Melena or Hematochezia Associated Symptoms Associated Symptoms: Negative for Dysuria, Frequency, Hematuria or Urgency Narrative Narrative: 59-year-old female history of hypertension. Prior cholecystectomy and hysterectomy prior back surgery was stimulator. States around 7 AM today she developed diffuse abdominal pain primarily cramping worse in the lower quadrants. Associated nausea but no vomiting or diarrhea. No fever. No dysuria. Said she felt well the last several days. Prior similar symptoms: No Recent Illness/Hospitalization: No PFSH PFSH Medical History (Updated 11/24/24 @ 15:[address] Pepito Cabrera MD) Anxiety Kidney disease GERD (gastroesophageal reflux disease) GI bleed CPAP (continuous positive airway pressure) dependence Former smoker Class 1 obesity with body mass index (BMI) of 33.0 to 33.9 in adult History of insomnia Obstructive sleep apnea on CPAP Acne rosacea PTSD (post-traumatic stress disorder) Depression Degenerative disc disease Chronic neck and back pain Limb weakness Hay fever Fatigue Diabetes Shoulder pain Hemorrhoids SOB (shortness of breath) Hypertension Arthritis Home Medications Medication Instructions Recorded Last Taken Type cetirizine 10 mg capsule (Zyrtec) 10 mg PO DAILY PRN allergy symptoms 03/05/21 11/23/24 History rosuvastatin 5 mg tablet 5 mg PO DAILY 03/05/21 11/23/24 History acetaminophen 650 mg 650 mg PO Q12H 06/05/21 Unknown History tablet,extended release (Tylenol Arthritis Pain) multivitamin (One Daily 1 tab PO DAILY 06/05/21 11/23/24 History Multivitamin tablet) ipratropium bromide 21 mcg (0.03 1 spray intranasal BID-TID PRN 01/08/23 11/23/24 Rx %) nasal spray allergy symptoms #30 mL lisinopril 20 mg tablet 20 mg PO DAILY 12/29/23 11/23/24 History ascorbic acid (vitamin C) 500 mg 500 mg PO DAILY 11/24/24 11/23/24 History capsule calcium 600 mg (as 1 cap PO DAILY 11/24/24 11/23/24 History carbonate)-vitamin D3 5 mcg (200 unit) capsule (Calcium 600 + D(3)) calcium carbonate (Tums Extra 600 mg PO TID PRN dyspepsia 11/24/24 11/23/24 History Strength Smoothies) duloxetine 60 mg capsule,delayed 60 mg PO DAILY 11/24/24 11/23/24 History release metformin 500 mg tablet,extended 1,000 mg PO BID 11/24/24 11/23/24 History release 24 hr oxybutynin chloride 10 mg 10 mg PO DAILY 11/24/24 11/23/24 History tablet,extended release 24 hr zinc gluconate 50 mg tablet 50 mg PO DAILY 11/24/24 11/23/24 History Allergy/AdvReac Type Severity Reaction Status Date / Time naproxen Allergy Unknown hives Verified 11/24/24 10:06 bupropion (From Wellbutrin) AdvReac Unknown Diarrhea Verified 11/24/24 10:06 Family History Father Hypertension Myocardial infarction Arthritis Mother Diabetes Arthritis Kidney disease Sister Cancer Surgical History Hx of cholecystectomy H/O: hysterectomy History of spinal surgery Social History Smoking Status: Never smoker ROS ROS ED ROS Narrative Nausea. Abdominal pain. Constitutional Constitutional ED: Denies chills or fever(s) ENT ENT ED: Denies ear pain Cardiovascular Cardiovascular: Denies chest pain Respiratory/Chest Respiratory/Chest: Denies cough or dyspnea Gastrointestinal Gastrointestinal: Reports abdominal pain and nausea; Denies constipation, diarrhea, melena or vomiting Genitourinary Genitourinary ED: Denies dysuria or hematuria Musculoskeletal Musculoskeletal: Denies arthralgias Integumentary Denies abscess Neurologic Neurologic: Denies headache(s) Psychiatric Psychiatric: Denies anxiety Endocrine Endocrinology: Denies polydipsia or polyphagia Hematologic/Lymphatic Hematologic/Lymphatic: Denies easy bleeding, easy bruising or lymphadenopathy Allergic/Immunologic Allergic/Immunologic ED: Denies mouth swelling, tongue swelling or urticaria EXAM Physical Exam Narrative Exam Narrative: 59-year-old female vital signs stable except blood pressure 97/67. Does not look septic or toxic. H EENT exam pupils round reactive light. Dry mucous membranes. Neck nontender no lymphadenopathy. Lungs clear to auscultation bilaterally. Heart regular rate rhythm rate about 85 no murmur. Chest wall ribs nontender. Abdomen soft diffusely tender more so in both lower quadrants. No rebound, guarding or rigidity. No hernia or mass. No distention. No pulsatile mass. No bruising. Back nontender. Moving all 4 extremities. Neurovascularly intact. Nontender no edema. Normal dorsi plantarflexion. Normal sports administrator strength. Back nontender. Neurologically she is awake and alert no focal motor deficits. Const Vital Signs: 11/24/24 10:06 11/24/24 12:04 11/24/24 13:30 Temperature 95.0 F L Temperature Source Oral Pulse Rate 85 91 Respiratory Rate 14 Blood Pressure 97/67 118/73 115/73 Blood Pressure Mean 77 88 87 Pulse Ox 96 93 Oxygen Delivery Method Room Air Room Air Positive well nourished and well developed; Negative for cachectic, contractures or unkempt General Appearance ED: well developed and NAD; Negative for unkempt, cachectic, contractures or pallor Nutritional Appearance: Negative for cachectic HEENT Reports dry mucous membranes; Denies moist mucous membranes normocephalic and atraumatic; Negative for trauma or tenderness Mouth ED: Yes dry mucous membranes Mouth: dry mucous membranes Eyes PERRL and EOMs intact bilaterally Neck no lymphadenopathy, supple and no JVD Resp normal respiratory effort and clear to auscultation bilaterally Cardio regular rate, regular rhythm, S1 normal heart sound, S2 normal heart sound and no murmurs GI non-distended and no masses; Negative for non-tender GI Narrative: Diffusely tender more so in the lower quadrants. No hernia or mass. No pulsatile mass. Inspection: Negative for abdominal distention Palpation: soft and tender; Negative for guarding, rigid, hepatomegaly, hernia, mass, pulsatile mass or rebound tenderness present Back/Spine no CVA tenderness Extremity full ROM General Extremety ED: Negative for edema or tenderness General Extremity: Negative for edema Neuro CN's II-XII intact bilaterally and moves all extremities Sensorium / Orientation: alert, oriented to person, oriented to place and oriented to time Motor Exam: strength 5/5 throughout Psych mental status grossly normal and thought process normal Appearance: Negative for unkempt Skin no wounds General Skin Exam: Negative for jaundice or pallor Lesions: no lesions Rashes: no rashes MDM MDM MDM Narrative Medical decision making narrative: 59-year-old female prior hysterectomy and cholecystectomy complaining diffuse abdominal pain. May be a viral illness, UTI, diverticulitis, appendicitis, bowel obstruction versus other. CAT scan labs are pending. IV fluids because she looks mildly dehydrated. Morphine for pain and Zofran for nausea. CAT scan. Repeat exam at 1:08 PM. Patient still mildly tender. We went over her test. Her blood pressure is reading low but at nurse recheck it is 115 over 60s. Nurse thought it was just the way she was laying in with the cuff was on her arm. I have added a lactic acid, blood and urine culture and reassess her Repeat exam at. 3:33 PM. Pressure is improving. Currently is 115/73. I do not have a specific cause of her transient hypotension or leukocytosis. Cultures of blood and urine have been sent. I spoke with the hospitalist he is down evaluating patient [place] of the PCU. We are not giving antibiotics at this time because we do not have a specific source History & Record Review Discussion w/independent historian: Patient Additional record(s) reviewed:: Prior inpatient record, Prior outpatient record and Prior labs Lab Data Attestation: I reviewed the patient's lab results. Lab results narrative: CBC shows a white count of 21.5. H&H is 13 and 41. Platelets 319. Electrolytes show potassium 3.4. Gap 11. Normal BUN of 15 creatinine 1.38. Glucose 265. AST slightly elevated 47 ALT is 62. Lipase 76. Urinalysis shows 5-10 white cells no red cells. No nitrates. 3+ bacteria a culture will be sent. IBS is 3.5. Labs: Laboratory Results - last 24 hr 11/24/24 11/24/24 11/24/24 10:16 12:40 13:35 WBC 21.5 H RBC 4.74 Hgb 13.5 Hct 41.5 MCV 87.6 MCH 28.5 MCHC 32.5 RDW Std Deviation 43.1 RDW Coeff of Ga 13.4 Plt Count 319 MPV 10.4 Immature Gran % (Auto) 1.200 H Neut % (Auto) 74.5 H Lymph % (Auto) 16.2 L [place] % (Auto) 7.0 Eos % (Auto) 0.6 Baso % (Auto) 0.5 Absolute Neuts (auto) 16.1 H Absolute Lymphs (auto) 3.49 Nucleated RBC % 0 Differential Comment SCANNED Diff Path Review February Sodium 138 Potassium 3.4 L Chloride 106 Carbon Dioxide 21.0 Anion Gap 11 BUN 15 Creatinine 1.38 H Estim Creat Clear Calc 47.69 Est GFR (MDRD) Af Amer 50 L Est GFR (MDRD) Non-Af 41 L BUN/Creatinine Ratio 10.9 Glucose 265 H Lactic Acid 3.5 H* Calcium 9.7 Total Bilirubin 0.40 AST 47 H ALT 62 H Alkaline Phosphatase 88 Total Protein 7.3 Albumin 3.9 Globulin 3.4 Albumin/Globulin Ratio 1.1 Lipase 76 H Urine Color Yellow Urine Clarity Clear Urine pH 6.0 Ur Specific [place] 1.010 Urine Protein 30 H Urine Glucose (UA) Normal Urine Ketones Negative Urine Occult Blood 10 H Urine Nitrite Negative Urine Bilirubin Negative Urine Urobilinogen Normal Ur Leukocyte Esterase 25 H Urine RBC 0-5 SEEN Urine WBC 5-10 SEEN Ur Squamous Epith Cells 0-5 SEEN Urine Bacteria 3+ Hyaline Casts 0-5 SEEN Coarse Granular Casts 0-5 SEEN Urine Mucus RARE Radiography Chest X-Ray - ED: 2 View, Read by ED Physician, Read by Radiologist, Normal, Heart, Lungs, Mediastinum, Bony Structures, No Acute Disease and Chronic Changes Diagnostic Testing: Clinical Impression(s) from Imaging Studies Abdomen/Pelvis CT 11/24/24 10:50 IMPRESSION: Large amount of fecal material is seen in the colon. Fatty infiltration of the liver. Hepatic cysts. Status post cholecystectomy. One or more dose reduction techniques were used (e.g., Automated exposure control, adjustment of the mA and/or kV according to patient size, use of iterative reconstruction technique). Reading Location: [facility] Chest X-Ray 11/24/24 13:35 IMPRESSION: A spinal neurostimulator is seen, with tip at approximately the T7 level. Right upper quadrant abdominal surgical clips are noted. The lungs appear clear throughout. No pleural effusion or pneumothorax is evident. The cardiomediastinal silhouette is within the normal range. No evidence of acute cardiopulmonary disease. Reading Location: [address] Chest x-ray, portable, single view interpreted by myself and the radiologist shows a normal cardiac silhouette. Normal lung mejia. Elevated left hemidiaphragm. No acute process. Discharge Plan Triage Chief Complaint: Abd Pain ED Provider: Pepito Cabrera Dx/Rx/DC Orders Clinical Impression: Abdominal pain, Leukocytosis, Transient hypotension, Constipation Prescriptions: No Action rosuvastatin 5 mg tablet 5 mg PO DAILY Zyrtec 10 mg capsule 10 mg PO DAILY PRN (Reason: allergy symptoms) lisinopril 20 mg tablet 20 mg PO DAILY multivitamin [One Daily Multivitamin] Tablet 1 tab PO DAILY acetaminophen [Tylenol Arthritis Pain] 650 mg tablet extended release 650 mg PO Q12H oxybutynin chloride 10 mg tablet extended release 24hr 10 mg PO DAILY metformin 500 mg tablet extended release 24 hr 1,000 mg PO BID Patient Comments: PT STATES PCP HAD STOPPED TEMPORARILY (COUPLE WEEKS) AND LAST NIGHT WAS FIRST DOSE SINCE. TOOK 1 TAB duloxetine 60 mg capsule,delayed release(DR/EC) 60 mg PO DAILY zinc gluconate 50 mg tablet 50 mg PO DAILY Tums Extra Strength Smoothies 300 mg (750 mg) tablet,chewable 600 mg PO TID PRN (Reason: dyspepsia) ascorbic acid (vitamin C) 500 mg capsule 500 mg PO DAILY Calcium 600 + D(3) 600 mg-5 mcg (200 unit) capsule 1 cap PO DAILY ipratropium bromide 21 mcg (0.03 %) spray,non-aerosol 1 spray intranasal BID-TID PRN (Reason: allergy symptoms) Qty: 30 6RF Rx Instructions: administer into each nostril Primary Care Provider: Kendall Valenzuela Referrals: Kendall Valenzuela MD [Primary Care Provider] - Print Language: Cymraes Disposition Disposition: [facility]
[2024-11-24 10:59] LABS: Absolute Lymphocyte Count 3.49 X10^3/uL (0.83-4.51); Absolute Neutrophil Count 16.1 X10^3/uL (2.0-7.7); Basophil% 0.5 % (0-1); Eosinophil# 0.12 X10^3/uL; Eosinophils% 0.6 % (0-5); Hematocrit 41.5 % (37-47); Hemoglobin 13.5 g/dL (12.0-15.0); Lymphocyte # 3.49 X10^3/ul (0.83-4.51); Lymphocyte % 16.2 % (19-41); Mean Corp Hgb Conc 32.5 g/dL (32-36); Mean Corpuscular Hgb 28.5 pg (27.0-32.0); Mean Corpuscular Volume 87.6 fL (81-99); Mean Platelet Vol. 10.4 fl (6.2-12.0); Monocyte# 1.51 X10^3/uL; NRBC Flagged by Analyzer 0 % (0-5); Neutrophil # 16.07 X10^3/uL (2.7-7.7); Neutrophil % 74.5 % (47-70); POSITIVE DIFFERENTIAL YES; Platelet Count 319 K/mm3 (150-450); RBC Distribution Width CV 13.4 % (11.6-14.6); RBC Distribution Width SD 43.1 fl (35.1-43.9); Red Blood Count 4.74 M/mm3 (4.2-5.4); White Blood Count 21.5 K/mm3 (4.4-11.0)
[2024-11-24 11:21] LABS: ALB/GLOB Ratio 1.1 RATIO (0.9-2.4); AST(SGOT) 47 U/L (15-37); Alanine Aminotransfer ALT/SGPT 62 U/L (13-56); Albumin, Serum 3.9 g/dL (3.2-5.0); Alkaline Phosphatase 88 U/L (45-117); Anion Gap 11 (5-15); BUN 15 mg/dL (7-18); BUN/Creat Ratio 10.9 RATIO (10-20); Calcium,Total 9.7 mg/dL (8.5-10.1); Chloride 106 mmol/L (98-107); Creatinine, Serum 1.38 mg/dL (0.55-1.02); EST Glomerular Filtration Rate 41 mL/min (>60); Est Glom Filt Rate - Afr Amer 50 mL/min (>60); Estimated Creatinine Clearance 47.69 ml/min; Globulin 3.4 g/dL (2.2-4.2); Glucose 265 mg/dL (74-106); Lipase 76 U/L (13-75); Potassium 3.4 mmol/L (3.5-5.1); Protein, Total 7.3 g/dL (6.4-8.2); Sodium Level 138 mmol/L (136-145)
[2024-11-24] MEDS: morphine 8 MG/ML Syringe 6 MG IV (11:21)
[2024-11-24] MEDS: 0.9% Normal Saline (1000mL) 1,000 ML 999 ML IV ×2 (11:21→13:52)
[2024-11-24] MEDS: Ondansetron 4 MG/2 ML Vial IV (11:21)
[2024-11-24 11:22] LABS: Differential Indicated SCAN CRITERIA MET
[2024-11-24 11:31] LABS: Differential Comment SCANNED
[2024-11-24 12:46] LABS: Color, Urine Yellow (Yellow); Glucose, Dipstick Normal (Normal); Ketone-Dipstick Negative (Negative); Leukocyte Esterase-Dipstick 25 /ul (Negative); Nitrite-Dipstick Negative (Negative); Occult Blood-Urine 10 /ul (Negative); Protein-Dipstick 30 mg/dl (Negative); Urine Bilirubin Dipstick Negative (Negative); Urine Clarity Clear (Clear); Urine Urobilinogen Normal (Normal)
[2024-11-24 13:02] LABS: Bacteria 3+ /hpf (None Seen); Coarse Granular Cast 0-5 SEEN /lpf (0-5 /lpf); Mucous, Urine RARE /hpf (<or=2+); Red Blood Cells-Urine 0-5 SEEN /hpf (0-5); White Blood Cells 5-10 SEEN /hpf (0-5)
[2024-11-24 13:04] LABS: Hyaline Cast 0-5 SEEN /lpf (0-5); Squamous Epithelial Cells - UA 0-5 SEEN /hpf (5-10)
--- NOTE | 2024-11-24 13:35 | RAD_ITS ---
PROCEDURE: CHEST PA AND LATERAL REASON FOR EXAM: Leukocytosis TECHNIQUE: Frontal and lateral views of the chest. COMPARISON: None. RAD/Chest PA and Lateral IMPRESSION: A spinal neurostimulator is seen, with tip at approximately the T7 level. Right upper quadrant abdominal surgical clips are noted. The lungs appear clear throughout. No pleural effusion or pneumothorax is evident. The cardiomediastinal silhouette is within the normal range. No evidence of acute cardiopulmonary disease. Reading Location: [id number]
[2024-11-24 14:18] LABS: Lactic Acid 3.5 mmol/L (0.4-1.9)
--- NOTE | 2024-11-24 14:58 | HP.PCM.HOS_ITS ---
HPI - General General Date of Admission: 11/24/24 Date of Service: 11/24/24 Chief Complaint: Worsening abdominal pain HPI Narrative ARIA MCCABE, is a 59 F who presented to [facility] ED on 11/24/2024 with worsening abdominal pain. Patient has had intermittent diarrhea over the past few months. She is on metformin for diabetes and her primary care doctor discontinued the metformin. She states this initially helped with her diarrhea but then the diarrhea returned 3 days ago. She took Imodium for this and had not had a bowel movement since then. She felt somewhat distended yesterday and took an [id number] laxative without much improvement. This morning she noted abdominal discomfort with cramping primarily in the lower quadrants. She did have nausea associated with this but no vomiting or diarrhea. She denies any recent fevers or chills. Denies any UTI symptoms. She does often feel thirsty at baseline but denies increased urination. Does not check her sugars at home but was told by her PCP that her sugar was in the low 300s when she saw him about a week ago. In the ED she was borderline hypotensive but otherwise hemodynamically stable on room air. Labs notable for WBC count 21, potassium 3.4, creatinine 1.38 (baseline around 0.7), glucose 265, lactate 3.5. UA showed 25 leukocyte esterase, negative nitrites, 3+ bacteria. Chest x-ray was unremarkable. CT abdomen pelvis with IV contrast showed a large amount of fecal material in the colon and fatty infiltration of the liver, was otherwise unremarkable. Given these findings, hospitalist was contacted for admission. I saw the patient at bedside in the ED, was present. Patient was mildly fatigued appearing and mildly uncomfortable appearing due to ongoing abdominal discomfort. She otherwise was sitting up in bed and conversing normally. Stated that she finally had a bowel movement that was soft but there was some blood noted in the bowel movement. Denies any history of bloody bowel movements. She denies any lightheadedness or dizziness. Last colonoscopy was 2 to 3 years ago and showed a few polyps as previous colonoscopies had but there was no significant concern. She does report feeling dry in exam despite receiving 2 bags of IV fluids thus far and was drinking water when I saw her. Denies any fevers or chills. No other acute concerns at this time. [facility] Medical History (Updated 11/24/24 @ 15:[address] Pepito Cabrera MD) Anxiety Kidney disease GERD (gastroesophageal reflux disease) GI bleed CPAP (continuous positive airway pressure) dependence Former smoker Class 1 obesity with body mass index (BMI) of 33.0 to 33.9 in adult History of insomnia Obstructive sleep apnea on CPAP Acne rosacea PTSD (post-traumatic stress disorder) Depression Degenerative disc disease Chronic neck and back pain Limb weakness Hay fever Fatigue Diabetes Shoulder pain Hemorrhoids SOB (shortness of breath) Hypertension Arthritis Home Medications Medication Instructions Recorded Last Taken Type cetirizine 10 mg capsule (Zyrtec) 10 mg PO DAILY PRN a llergy symptoms 03/05/21 11/23/24 History rosuvastatin 5 mg tablet 5 mg PO DAILY 03/05/2111/23 History acetaminophen 650 mg 650 mg PO Q12H 06/05/21 Unkn own History tablet,extended release (Tylenol Arthritis Pain) multivitamin (One Daily 1 tab PO DAILY 06/05/2110/27 History Multivitamin tablet) ipratropium bromide 21 mcg (0.03 1 spray intranasal BI D-TID PRN 01/08/23 11/23/24 Rx %) nasal spray allergy symptoms #30 mL lisinopril 20 mg tablet 20 mg PO DAILY 12/29/2310/27 History ascorbic acid (vitamin C) 500 mg 500 mg PO DAILY 11/2411/23/24 History capsule calcium 600 mg (as 1 cap PO DAILY 11/24/2410/27 History carbonate)-vitamin D3 5 mcg (200 unit) capsule (Calcium 600 + D(3)) calcium carbonate (Tums Extra 600 mg PO TID PRN dyspep nicolas 11/24/24 11/23/24 History Strength Smoothies) duloxetine 60 mg capsule,delayed 60 mg PO DAILY 11/23/24 History release metformin 500 mg tablet,extended 1,000 mg PO BID 11/2411/23/24 History release 24 hr oxybutynin chloride 10 mg 10 mg PO DAILY 11/24/2410/27 History tablet,extended release 24 hr zinc gluconate 50 mg tablet 50 mg PO DAILY 11/24/24 History Allergy/AdvReac Type Severity Reaction Status Date / Time naproxen Allergy Unknown hives Verified 11/24/24 10:06 bupropion (From Wellbutrin) AdvReac Unknown Diarrhea Verified 11/24/24 10:06 Family History Father Hypertension Myocardial infarction Arthritis Mother Diabetes Arthritis Kidney disease Sister Cancer Surgical History Hx of cholecystectomy H/O: hysterectomy History of spinal surgery Social History Smoking Status: Never smoker ROS Constitutional Constitutional: Reports fatigue and malaise; Denies chills, fever(s) or weakness Eyes Eyes: Denies change in vision Cardiovascular Cardiovascular: Denies chest pain Respiratory/Chest Respiratory/Chest: Denies shortness of breath at rest Gastrointestinal Gastrointestinal: Reports abdominal pain, constipation, diarrhea, hematochezia and nausea; Denies vomiting Genitourinary Genitourinary: Denies dysuria Musculoskeletal Musculoskeletal: Denies arthralgias or myalgias Neurologic Neurologic: Denies dizziness or headache(s) Vital Signs Vital Signs Vital Signs: 11/24/24 10:06 11/24/24 12:04 11/24/24 13:30 Temperature 95.0 F L Temperature Source Oral Pulse Rate 85 91 Respiratory Rate 14 Blood Pressure 97/67 118/73 115/73 Blood Pressure Mean 77 88 87 Pulse Ox 96 93 Oxygen Delivery Method Room Air Room Air Weight Weight: 90.9 kg Body Mass Index (BMI) 33.3 Physical Exam Const alert, oriented x3 and no apparent distress Constitutional Narrative: Middle-age female, class I obesity, mildly fatigued appearing and mildly uncomfortable due to ongoing abdominal discomfort, otherwise sitting up in bed and answering questions appropriately. General Appearance: cooperative HEENT normocephalic, head/scalp atraumatic, hearing grossly normal bilaterally and nasal mucous membranes and turbinates normal HEENT Narrative: Dry mucous membranes. Eyes PERRL, EOMs intact bilaterally and conjunctivae normal Neck full ROM Chest inspection of chest normal Resp normal respiratory effort, normal air movement, no use of accessory muscles and clear to auscultation bilaterally Cardio regular rate, regular rhythm, no murmurs and peripheral pulses 2+ throughout GI GI Narrative: Abdomen mildly distended and mildly tender to palpation diffusely, but notably was soft and bowel sounds are normal. Back/Spine normal ROM Extremity normal to inspection, full ROM and no pedal edema Skin no rashes or lesions noted Neuro moves all extremities and no focal motor deficits Speech: speech normal Psych mental status grossly normal Results Lab / Micro Data 11/24/24 10:16 11/24/24 10:16 Labs: Laboratory Results - last 24 hr 11/24/24 10:16: WBC 21.5 H, RBC 4.74, Hgb 13.5, Hct 41.5, MCV 87.6, MCH 28.5, MCHC 32.5, RDW Std Deviation 43.1, RDW Coeff of Ga 13.4, Plt Count 319, MPV 10.4, Immature Gran % (Auto) 1.200 H, Neut % (Auto) 74.5 H, Lymph % (Auto) 16.2 L, [place] % (Auto) 7.0, Eos % (Auto) 0.6, Baso % (Auto) 0.5, Absolute Neuts (auto) 16.1 H, Absolute Lymphs (auto) 3.49, Nucleated RBC % 0, Differential Comment SCANNED, Diff Path Review February, Sodium 138, Potassium 3.4 L, Chloride 106, Carbon Dioxide 21.0, Anion Gap 11, BUN 15, Creatinine 1.38 H, Estim Creat Clear Calc 47.69, Est GFR (MDRD) Af Amer 50 L, Est GFR (MDRD) Non-Af 41 L, BUN/Creatinine Ratio 10.9, Glucose 265 H, Calcium 9.7, Total Bilirubin 0.40, AST 47 H, ALT 62 H, Alkaline Phosphatase 88, Total Protein 7.3, Albumin 3.9, Globulin 3.4, Albumin/Globulin Ratio 1.1, Lipase 76 H 11/24/24 12:40: Urine Color Yellow, Urine Clarity Clear, Urine pH 6.0, Ur Specific [place] 1.010, Urine Protein 30 H, Urine Glucose (UA) Normal, Urine Ketones Negative, Urine Occult Blood 10 H, Urine Nitrite Negative, Urine Bilirubin Negative, Urine Urobilinogen Normal, Ur Leukocyte Esterase 25 H, Urine RBC 0-5 SEEN, Urine WBC 5-10 SEEN, Ur Squamous Epith Cells 0-5 SEEN, Urine Bacteria 3+, Hyaline Casts 0-5 SEEN, Coarse Granular Casts 0-5 SEEN, Urine Mucus RARE 11/24/24 13:35: Lactic Acid 3.5 H* Imaging Radiology Impression Abdomen/Pelvis CT 11/24/24 10:50 IMPRESSION: Large amount of fecal material is seen in the colon. Fatty infiltration of the liver. Hepatic cysts. Status post cholecystectomy. One or more dose reduction techniques were used (e.g., Automated exposure control, adjustment of the mA and/or kV according to patient size, use of iterative reconstruction technique). Reading Location: [facility] Chest X-Ray 11/24/24 13:35 IMPRESSION: A spinal neurostimulator is seen, with tip at approximately the T7 level. Right upper quadrant abdominal surgical clips are noted. The lungs appear clear throughout. No pleural effusion or pneumothorax is evident. The cardiomediastinal silhouette is within the normal range. No evidence of acute cardiopulmonary disease. Reading Location: [id number] Assessment & Plan Assessment/Plan (1) Abdominal pain: (2) Constipation: (3) Leukocytosis: PLAN: Plan Patient is a 59-year-old female who presented [facility] ED on 11/24/2024 with worsening abdominal pain. 1. Abdominal pain with constipation – Admit under inpatient status to PCU. Seems most likely that abdominal pain is primarily due to constipation. CT abdomen pelvis showed large stool burden in the colon, no other concerning findings. Suspect constipation is from dehydration in setting of higher blood sugars and volume depletion from this. Will treat constipation with scheduled senna and MiraLAX and Dulcolax suppositories as needed. Monitor. 2. DIANA with dehydration and elevated lactic acid – Creatinine 1.38 on admit, baseline around 0.7. Lactic acid 3.5. Appeared dry on exam and suspect this is due to elevated blood sugars and polyuria. Given 2 L of IV fluids in the ED, follow-up BMP and monitor urine output. Follow-up repeat lactic acid as well. 3. Type 2 diabetes mellitus – Last A1c 6.7% on 10/25. However, patient was taken off of metformin a few months ago due to diarrhea. Blood sugar 265 on admit here. Will treat with sliding scale insulin with meals while inpatient, adjust as needed. 4. Concern for acute cystitis – UA on admit showed 25 leukocyte esterase, negative nitrites but 3+ bacteria. Patient does deny UTI symptoms. However, given her constipation and elevated blood sugars and bacteria in the urine, will empirically treat with IV Zosyn for now. Follow-up urine culture. 5. Reported episode of hematochezia – Patient reported an episode of hematochezia in the ED and nursing staff noted there was some blood in the stool. Hemoglobin 13.5 in the ED, at baseline. Will monitor for subsequent bloody stools and monitor daily CBC. Notably had colonoscopy 2 to 3 years ago that showed a few polyps but was otherwise normal. Hold on GI consult at this time. Chronic medical conditions: – Class I obesity: BMI 32 on admit. Complicates hospital course, care and prognosis. – Hypertension: Will hold home lisinopril in setting of DIANA. – Overactive bladder: Continue home oxybutynin. – Chronic back pain with spinal stimulator in place: Continue home duloxetine. – Hyperlipidemia: Continue home statin. – KAVON: Continue home CPAP at night. DVT prophylaxis: Lovenox CODE STATUS: Full code, verified Expected disposition: Home, 2 to 3 days Total clinical time spent by myself addressing the patient's medical issues, reviewing all the data, and collaborating with patient's care team: 75 minutes. Charges/Coding Visit Charges Inpatient E&M: 57125 Init Hosp L3
[2024-11-24] MEDS: Piperacil/Tazobactam 3.375 GM in 0.9% Normal Saline (50mL MB+) 50 ML IV ×2 (15:34→22:31)
[2024-11-24 17:02] LABS: Bedside Glucose 177 mg/dL (74-106)
[2024-11-24 17:08] LABS: Hemoglobin A1c 6.7 % (3.8-5.6)
[2024-11-24 17:40] LABS: Reflex Lactate? Y
[2024-11-24] MEDS: Senna Tablet 2 TABLET PO ×2 (18:05→22:30)
[2024-11-24 18:29] LABS: Lactic Acid 4.2 mmol/L (0.4-1.9)
[2024-11-24] MEDS: DULoxetine Hcl 60 MG Capsule PO (22:30)
[2024-11-24] MEDS: 0.9% Saline Lock 10 ML Syringe IV (22:35)
[2024-11-24] MEDS: 0.9% Normal Saline (100mL Bag) 100 ML 15 ML IV (22:35)
[2024-11-24 23:22] LABS: Bedside Glucose 161 mg/dL (74-106)
[2024-11-24 23:39] LABS: Lactic Acid 2.4 mmol/L (0.4-1.9)
[2024-11-25 03:05] LABS: Reflex Lactate? Y
[2024-11-25 03:28] VITALS: BP 123/76; PULSE 103; RESP 14; TEMP 37.2; O2SAT 93
[2024-11-25] MEDS: Acetaminophen 325 MG Tablet 650 MG PO ×2 (03:36→12:54)
[2024-11-25 03:50] LABS: Lactic Acid 1.8 mmol/L (0.4-1.9)
[2024-11-25] MEDS: Piperacil/Tazobactam 3.375 GM in 0.9% Normal Saline (50mL MB+) 50 ML IV ×3 (06:13→21:55)
[2024-11-25 06:33] LABS: Bedside Glucose 145 mg/dL (74-106)
[2024-11-25 07:36] LABS: Hematocrit 35.9 % (37-47); Hemoglobin 12.1 g/dL (12.0-15.0); Mean Corp Hgb Conc 33.7 g/dL (32-36); Mean Corpuscular Hgb 28.7 pg (27.0-32.0); Mean Corpuscular Volume 85.1 fL (81-99); Platelet Count 278 K/mm3 (150-450); RBC Distribution Width SD 43.3 fl (35.1-43.9); Red Blood Count 4.22 M/mm3 (4.2-5.4); White Blood Count 15.5 K/mm3 (4.4-11.0)
[2024-11-25 08:00] LABS: Anion Gap 8 (5-15); BUN 15 mg/dL (7-18); BUN/Creat Ratio 19.6 RATIO (10-20); Calcium,Total 8.6 mg/dL (8.5-10.1); Chloride 106 mmol/L (98-107); Creatinine, Serum 0.77 mg/dL (0.55-1.02); EST Glomerular Filtration Rate 81 mL/min (>60); Est Glom Filt Rate - Afr Amer 98 mL/min (>60); Estimated Creatinine Clearance 83.62 ml/min; Glucose 165 mg/dL (74-106); Potassium 3.8 mmol/L (3.5-5.1); Sodium Level 137 mmol/L (136-145)
[2024-11-25] MEDS: Tolterodine Tartrate 2 MG CAP.SA PO (09:11)
[2024-11-25] MEDS: Ascorbic Acid 500 MG Tablet PO (09:11)
[2024-11-25] MEDS: Polyethylene Glycol 3350 17 GM PACKET PO (09:11)
[2024-11-25] MEDS: Calcium Carb/Vitamin D 1 TABLET Tablet PO (09:11)
[2024-11-25] MEDS: Senna Tablet 2 TABLET PO ×2 (09:11→21:57)
[2024-11-25 09:30] VITALS: BP 123/74; PULSE 89; RESP 16; TEMP 36.6; O2SAT 96
--- NOTE | 2024-11-25 10:40 | CASEMGMT ---
SHAHEEN MILLER BUNDLING MACHINE OPERATOR ANGELA to room to meet with patient for initial transition planning/care coordination assessment. SHAHEEN MILLER introduced self and role at [facility]. Pt voices understanding and consents to assessment at this time. Pt resting in bed in no distress at this time. Pt is A/O at this time and answers all questions appropriately. Care providers, pharmacy, and demographics verified/updated at this time. Strata: 1 PCP: Dr Valenzuela Specialists: Stiven Coleman. Puma mgnt @ [facility], pt does not remember name. Preferred Pharmacy: [facility] Insurance: [employer] Prescription Benefit: yes LNOK: , Musa Living Arrangements: Lives w/ in one-story home w/basement and 2 steps to enter home. Independent. Transportation:Pt states drives self and states no transportation concerns at this time. also drives. DME: States has the following DME: functioning glucometer w/supplies. Pt also has a CPAP but has not been wearing it recently. Pt states no need for further DME at this time. HHC/SNF: No hx of either. Has went to OP therapy in the past, > 20 yrs ago. No needs identified. Pt wishes to return home and states has no concerns with going home at time of discharge. PLAN: Home [place] RAYGOZA RN, CM
[2024-11-25] MEDS: Insulin Lispro 100 UNIT/ML INSULN.PEN SC (12:54)
[2024-11-25 13:06] LABS: Bedside Glucose 152 mg/dL (74-106)
[2024-11-25 14:00] VITALS: PULSE 109; TEMP 37.5; O2SAT 95
[2024-11-25] MEDS: Pantoprazole Sodium 40 MG Tablet PO (14:21)
[2024-11-25 15:03] LABS: Pathologist Review Reviewed
--- NOTE | 2024-11-25 15:05 | PCM.PN.HOSP ---
Reason for Visit Reason for Visit: Diagnoses Elevated white blood cell count, unspecified (11/24/24) Constipation, unspecified (11/24/24) Unspecified abdominal pain (11/24/24) Subjective Subjective Patient was seen and examined today, she states she has less abdominal pain today. Patient is still receiving laxatives. Objective Data Objective Data Vital Signs: Vital Signs Temp Pulse Resp BP Pulse Ox O2 Del Method 97.9 F 89 16 123/74 H 96 Room Air 11/25/24 09:30 11/25/24 09:30 11/25/24 09:30 11/25/24 09:30 11/25/24 09:30 11/25/24 09:30 Oxygen Delivery Method Room Air Weight: 87.09 kg Body Mass Index (BMI) 31.9 Intake & Output: Intake and Output for Last 24 Hours 11/23/24 11/24/24 11/25/24 23:59 23:59 23:59 Intake Total 2881.75 / 2881.75 400 / 400 Balance 2881.75 / 2881.75 400 / 400 Lab / Micro Data 11/25/24 07:09 11/25/24 07:09 Labs: Laboratory Results - last 24 hr 11/24/24 10:16: Diff Path Review Reviewed 11/24/24 16:40: Hemoglobin A1c 6.7 H 11/24/24 16:43: POC Glucose 177 H 11/24/24 17:35: Lactic Acid 4.2 H* 11/24/24 22:21: POC Glucose 161 H 11/24/24 22:59: Lactic Acid 2.4 H* 11/25/24 03:13: Lactic Acid 1.8 11/25/24 06:11: POC Glucose 145 H 11/25/24 07:09: WBC 15.5 H, RBC 4.22, Hgb 12.1, Hct 35.9 L, MCV 85.1, MCH 28.7, MCHC 33.7, RDW Std Deviation 43.3, RDW Coeff of Ga 14.0, Plt Count 278, MPV 10.0, Sodium 137, Potassium 3.8, Chloride 106, Carbon Dioxide 23.0, Anion Gap 8, BUN 15, Creatinine 0.77, Estim Creat Clear Calc 83.62, Est GFR (MDRD) Af Amer 98, Est GFR (MDRD) Non-Af 81, BUN/Creatinine Ratio 19.6, Glucose 165 H, Calcium 8.6 11/25/24 12:37: POC Glucose 152 H Micro: Microbiology 11/24/24 12:40 Urine, Clean Catch Urine Culture - Preliminary Streptococcus agalactiae (B) Physical Exam Const alert, oriented x3, no apparent distress and healthy appearing General Appearance: cooperative, well kempt and well developed Orientation / Consciousness: awake, oriented to person, oriented to place and oriented to time HEENT normocephalic, head/scalp atraumatic and moist oral mucous membranes Eyes PERRL, EOMs intact bilaterally and conjunctivae normal Neck supple, no JVD, thyroid normal and no carotid bruits General: trachea midline Resp normal respiratory effort, no retractions, no use of accessory muscles and clear to auscultation bilaterally Auscultation: Negative for rales, rhonchi or wheezes Cardio regular rate, regular rhythm, S1 normal heart sound, S2 normal heart sound, no murmurs, no rub and no gallops GI normal to inspection, nondistended, normoactive bowel sounds, soft to palpation, non-tender and non-distended Extremity no clubbing, cyanosis or edema Skin no rashes or lesions noted General Skin Exam: no breakdown Neuro oriented x3, CN's II-XII intact bilaterally, no focal motor deficits and no sensory deficits noted Sensorium / Orientation: awake and alert Speech: speech normal Psych affect normal Assessment & Plan Assessment/Plan (1) Abdominal pain: PLAN: Plan 1. Abdominal pain with constipation-continue laxatives for now, monitor patient's status #2 DIANA with dehydration-patient's creatinine and BUN are normal today #3 lactic acid elevation-etiology unclear at this point, patient was taken off her metformin #4 hyperlipidemia-patient is currently on a statin #5 leukocytosis, patient will remain on empiric antibiotics until her blood culture returns, repeat CBC tomorrow #6 type 2 diabetes-fingerstick blood sugars will be obtained, sliding scale insulin will be administered per sliding scale Total clinical time spent by myself addressing the patient's medical issues, reviewing all her data, and collaborating with patient's care team: 35-minute Charges/Coding Visit Charges Inpatient E&M: 82961 Subs Hosp L2
[2024-11-25 16:00] VITALS: PULSE 108
--- NOTE | 2024-11-25 16:29 | CHAPLAIN ---
Type of Pastoral Visit _x__ Initial Visit ___ Follow-up Visit ___ On-call Visit ___ General Patient Visit ___ Spiritual Assessment ___ Family Conference ___ Bereavement ___ Rapid Response ___ Code Blue ___ Other (describe below) Pastoral Care Referral From _x__ Patient ___ Family ___ Nurse ___ Physician ___ Education Counselor ___ Baby Attendant ___ Other (describe below) Sacrament/Intervention ___ Active listening ___ Anointing ___ Jehovah'S Witness ___ Bereavement ___ Communion ___ Danielle exploration ___ ___ Life review _x__ Prayer ___ Reconciliation ___ Sacrament of Sick _x__ Supportive presence ___ Wedding ___ Other (describe below) Pastoral Comments patient admits to discomfort and a desire to sleep; pt does say please say a prayer and that would be fine enough
[2024-11-25 17:20] LABS: Bedside Glucose 133 mg/dL (74-106)
[2024-11-25 17:28] VITALS: BP 106/59; PULSE 108; RESP 18; TEMP 36.9; O2SAT 92
[2024-11-25] MEDS: DULoxetine Hcl 60 MG Capsule PO (21:57)
[2024-11-25 22:07] VITALS: BP 121/76; PULSE 104; RESP 17; TEMP 36.7; O2SAT 95
[2024-11-25 22:47] LABS: Bedside Glucose 145 mg/dL (74-106)
[2024-11-26 03:37] VITALS: BP 115/82; PULSE 92; RESP 16; TEMP 36.8; O2SAT 97
[2024-11-26] MEDS: Piperacil/Tazobactam 3.375 GM in 0.9% Normal Saline (50mL MB+) 50 ML IV (05:58)
[2024-11-26 06:41] LABS: Bedside Glucose 131 mg/dL (74-106)
[2024-11-26 09:37] VITALS: BP 116/75; PULSE 88; RESP 14; TEMP 36.1; O2SAT 95
[2024-11-26 10:13] VITALS: PULSE 82
[2024-11-26] MEDS: Tolterodine Tartrate 2 MG CAP.SA PO (10:17)
[2024-11-26] MEDS: Calcium Carb/Vitamin D 1 TABLET Tablet PO (10:18)
[2024-11-26] MEDS: Ascorbic Acid 500 MG Tablet PO (10:18)
[2024-11-26] MEDS: Pantoprazole Sodium 40 MG Tablet PO (10:19)
--- NOTE | 2024-11-26 11:48 | DCINST_ITS ---
Discharge Instructions Diet Discharge Diet: 1800 Calorie Control Diet DC O2, CPAP, BIPAP needs Home O2 Discharge instructions: No Dressing / Incision Discharge Activity: Return to Normal Activity Weight Bearing Status: Full weight bearing Follow Up Care Test Results: Test results from this visit will be discussed in further detail at your follow- up appointment, if applicable. Discharge Plan Admission Admit Date/Time: 11/24/24 15:12 Primary Reason for Your Visit: Constipation Attending Provider: Antoni Hargrove Primary Care Provider: Kendall Valenzuela Consulting Providers: Kofi Puckett Discharge Orders/Prescriptions Prescriptions: New amoxicillin 500 mg capsule 500 mg PO TID Qty: 14 0RF Continued rosuvastatin 5 mg tablet 5 mg PO DAILY Zyrtec 10 mg capsule 10 mg PO DAILY PRN (Reason: allergy symptoms) lisinopril 20 mg tablet 20 mg PO DAILY multivitamin [One Daily Multivitamin] Tablet 1 tab PO DAILY acetaminophen [Tylenol Arthritis Pain] 650 mg tablet extended release 650 mg PO Q12H oxybutynin chloride 10 mg tablet extended release 24hr 10 mg PO DAILY duloxetine 60 mg capsule,delayed release(DR/EC) 60 mg PO DAILY zinc gluconate 50 mg tablet 50 mg PO DAILY Tums Extra Strength Smoothies 300 mg (750 mg) tablet,chewable 600 mg PO TID PRN (Reason: dyspepsia) ascorbic acid (vitamin C) 500 mg capsule 500 mg PO DAILY Calcium 600 + D(3) 600 mg-5 mcg (200 unit) capsule 1 cap PO DAILY ipratropium bromide 21 mcg (0.03 %) spray,non-aerosol 1 spray intranasal BID-TID PRN (Reason: allergy symptoms) Qty: 30 6RF Rx Instructions: administer into each nostril Discontinued metformin 500 mg tablet extended release 24 hr 1,000 mg PO BID Patient Comments: PT STATES PCP HAD STOPPED TEMPORARILY (COUPLE WEEKS) AND LAST NIGHT WAS FIRST DOSE SINCE. TOOK 1 TAB Referrals / Follow Up: Kendall Valenzueal MD [Primary Care Provider] - Within 1 Week (You will need to discuss your diabetic medication with him) Disposition Disposition (needs filled in before D/C Order can be placed): Home, Self Care
--- NOTE | 2024-11-26 11:59 | PCM.DC.SUM ---
Providers Date of Admission: 11/24/24 Date of Discharge: 11/26/24 Primary Care Physician: Dr. Kendall Valenzuela MD Reason For Visit: ABDOMINAL PAIN W/ DEHYDRATION Diagnosis Discharge Diagnosis (1) Abdominal pain: Status: Acute Code(s): R10.9 - Unspecified abdominal pain Plan 1. Abdominal pain with constipation-continue laxatives for now, monitor patient's status #2 DIANA with dehydration-patient's creatinine and BUN are normal today #3 lactic acid elevation-etiology unclear at this point, patient was taken off her metformin #4 hyperlipidemia-patient is currently on a statin #5 leukocytosis #6 type 2 diabetes-fingerstick blood sugars will be obtained, sliding scale insulin will be administered per sliding scale #7 bacteremia with gram-negative dania-not identified at the time of this dictation #8 bacteriuria with strep agalactiae Total clinical time spent by myself addressing the patient's medical issues, reviewing all her data, and collaborating with patient's care team: 35-minute Medications at Discharge Home Medications cetirizine 10 mg capsule (Zyrtec) 10 mg PO DAILY PRN allergy symptoms 03/05/21 rosuvastatin 5 mg tablet 5 mg PO DAILY 03/05/21 acetaminophen 650 mg tablet,extended release (Tylenol Arthritis Pain) 650 mg PO Q12H 06/05/21 multivitamin (One Daily Multivitamin tablet) 1 tab PO DAILY 06/05/21 ipratropium bromide 21 mcg (0.03 %) nasal spray 1 spray intranasal BID-TID PRN allergy symptoms #30 mL 01/08/23 lisinopril 20 mg tablet 20 mg PO DAILY 12/29/23 ascorbic acid (vitamin C) 500 mg capsule 500 mg PO DAILY 11/24/24 calcium 600 mg (as carbonate)-vitamin D3 5 mcg (200 unit) capsule (Calcium 600 + D(3)) 1 cap PO DAILY 11/24/24 calcium carbonate (Tums Extra Strength Smoothies) 600 mg PO TID PRN dyspepsia 11/24/24 duloxetine 60 mg capsule,delayed release 60 mg PO DAILY 11/24/24 oxybutynin chloride 10 mg tablet,extended release 24 hr 10 mg PO DAILY 11/24/24 zinc gluconate 50 mg tablet 50 mg PO DAILY 11/24/24 amoxicillin 500 mg capsule 500 mg PO TID #14 caps 11/26/24 Hospital Course Operations None Procedures None Summary of Care Provided Minutes Spent on Discharge: 31 Hospital Course: This 59-year-old white female was seen in the emergency room at [facility] with complaints of diffuse abdominal pain worse in the lower quadrants. She describes abdominal pain is primarily cramping in nature. There is no vomiting or diarrhea. Patient's white count was 21,000, chemistry panel was remarkable for creatinine of 1.38, glucose was 265, patient's lactic acid was 3.5. Urinalysis was remarkable for +3 bacteria, there were 5-10 WBCs seen and 0-5 RBCs seen. Patient's abdominal and pelvic CT showed a large amount of fecal material in the colon. Chest x-ray did not reveal any acute cardiopulmonary process. Patient was admitted to PCU, it was postulated that the patient's metformin was causing her elevated lactic acid, she was placed on IV antibiotics for suspected UTI and given laxatives. Her abdominal pain resolved with the mandaeism of her bowel movements, patient's white blood cell count declined to 15.5. On 11/26/2024, patient was seen and examined: On examination she appeared in good health and spirits, she does not appear to be in any distress. Vital signs as documented. Skin warm and dry and without overt rashes. Neck without JVD, thyroid appears normal, trachea is midline, neck is supple. Lungs clear, normal air movement was noted. Heart exam notable for regular rhythm, normal sounds and absence of murmurs, rubs or gallops. Abdomen unremarkable and without evidence of organomegaly, masses, or abdominal aortic enlargement, bowel sounds are present in all 4 quadrants, no abdominal tenderness was noted. Extremities nonedematous, no cyanosis was noted, no clubbing was noted. Neuro: Cranial nerves II through XII are grossly intact, no focal motor deficits were noted, sensation to light touch and pinprick is intact, motor exam 5/5 throughout. Psych: Patient is alert and oriented x3, she does not appear anxious or depressed, she does not appear agitated. Patient's urine culture grew out small numbers of strep agalactiae, patient was felt to be stable for discharge on 11/26/2024. Additional note: On 11/27/2024, I was alerted to the fact that the patient's blood culture was positive for gram-negative dania, I relayed this to the covering doctor for Dr. Ireland her PCP (Dr. Landaverde) and ask him to relay this to Dr. Ireland when he sees him on 11/28/2024. In the meantime, I have decided to call in a prescription for levofloxacin for the patient to take in place of her amoxicillin. Weight / BMI Weight Weight: 87.09 kg Body Mass Index (BMI) 31.9 ABG / Lab / Microbiology Data 11/25/24 07:09 11/25/24 07:09 Laboratory: Laboratory Results - last 24 hr 11/26/24 12:17: POC Glucose 145 H Microbiology: Microbiology 11/24/24 14:02 Blood Culture (Wb) - Wrist Blood Culture - Preliminary 11/24/24 13:35 Blood Culture (Wb) - Left Hand Blood Culture - Preliminary No growth in 48 hours. 11/24/24 12:40 Urine, Clean Catch Urine Culture - Preliminary Streptococcus agalactiae (B) D/C Instructions Discharge Diet: 1800 Calorie Control Diet Weight Bearing Status: Full weight bearing DC O2, CPAP, BIPAP Needs Home O2 Discharge instructions: No Meaningful Use Info Meaningful Use Meaningful Use Diagnoses (Choose all that apply): None applicable Ischemic Stroke Statin Dosing Therapy Reference: STATIN DOSE THERAPY REFERENCE: * Patients > 75 years receive moderate or high dose statin therapy. * Patients 75 years or YOUNGER should receive HIGH intensity statin dose unless contraindicated. You will be required to document reason for non-treatment if statin daily dose does not meet guidelines. HIGH DOSE STATIN THERAPY DAILY Atorvastatin > than or = to 40 mg Rosuvastatin > than or = to 20 mg Amlodipine + Atorvastatin > than or = to 2.5/40 mg Ezetimibe + Simvastatin 10/80 mg Simvastatin 80mg Discharge Plan Admission Admit Date/Time: 11/24/24 15:12 Primary Reason for Your Visit: Constipation Attending Provider: Antoni Hargrove Primary Care Provider: Kendall Valenzuela Consulting Providers: Kofi Puckett Discharge Orders/Prescriptions Prescriptions: New amoxicillin 500 mg capsule 500 mg PO TID Qty: 14 0RF Continued rosuvastatin 5 mg tablet 5 mg PO DAILY Zyrtec 10 mg capsule 10 mg PO DAILY PRN (Reason: allergy symptoms) lisinopril 20 mg tablet 20 mg PO DAILY multivitamin [One Daily Multivitamin] Tablet 1 tab PO DAILY acetaminophen [Tylenol Arthritis Pain] 650 mg tablet extended release 650 mg PO Q12H oxybutynin chloride 10 mg tablet extended release 24hr 10 mg PO DAILY duloxetine 60 mg capsule,delayed release(DR/EC) 60 mg PO DAILY zinc gluconate 50 mg tablet 50 mg PO DAILY Tums Extra Strength Smoothies 300 mg (750 mg) tablet,chewable 600 mg PO TID PRN (Reason: dyspepsia) ascorbic acid (vitamin C) 500 mg capsule 500 mg PO DAILY Calcium 600 + D(3) 600 mg-5 mcg (200 unit) capsule 1 cap PO DAILY ipratropium bromide 21 mcg (0.03 %) spray,non-aerosol 1 spray intranasal BID-TID PRN (Reason: allergy symptoms) Qty: 30 6RF Rx Instructions: administer into each nostril Discontinued metformin 500 mg tablet extended release 24 hr 1,000 mg PO BID Patient Comments: PT STATES PCP HAD STOPPED TEMPORARILY (COUPLE WEEKS) AND LAST NIGHT WAS FIRST DOSE SINCE. TOOK 1 TAB Referrals / Follow Up: Kendall Valenzuela MD [Primary Care Provider] - Within 1 Week (You will need to discuss your diabetic medication with him) Disposition Disposition (needs filled in before D/C Order can be placed): Home, Self Care Charges/Coding Visit Charges Inpatient E&M: 59548 Disch Hosp >30min
[2024-11-26 12:52] LABS: Bedside Glucose 145 mg/dL (74-106)
--- NOTE | 2024-11-27 07:52 | NURSING ---
Dr. Hargrove notified of blood culture result.
== END 2024-11-26 13:54 | disposition home or self-care (01) ==
LOC: ED 15:35 → PCU 11-25 07:12
PROVIDERS: Admitting Provider Hospitalist; Emergency Provider Emergency Medicine; PCP Family Medicine; Visit Provider Internal Medicine
DX: K59.09 Other constipation (principal); E11.9 Type 2 diabetes mellitus without complications; R78.81 Bacteremia; N17.9 Acute kidney failure, unspecified; D72.829 Elevated white blood cell count, unspecified; B95.1 Streptococcus, group B, as the cause of diseases classified elsewhere; I10 Essential (primary) hypertension; E66.811 Obesity, class 1; E86.0 Dehydration; E78.5 Hyperlipidemia, unspecified; G47.33 Obstructive sleep apnea (adult) (pediatric); N32.81 Overactive bladder; R74.02 Elevation of levels of lactic acid dehydrogenase [LDH]; Z68.32 Body mass index [BMI] 32.0-32.9, adult; Z96.82 Presence of neurostimulator; Z79.84 Long term (current) use of oral hypoglycemic drugs; Z79.899 Other long term (current) drug therapy; K76.0 Fatty (change of) liver, not elsewhere classified; K21.9 Gastro-esophageal reflux disease without esophagitis; Z87.891 Personal history of nicotine dependence
CPT/HCPCS: 36415; 71046; 74177; 80048; 80053; 81001; 82962; 83036; 83605; 83690; 85025; 85027; 87040; 87077; 87086; 87088; 87186; 94668; 96361; 96365; 96366; 96375; 99221; 99285; Q9967; A4216; G0378; J2405

== ENCOUNTER → 2024-11-29 | Outpatient (CLI) | payer OTHER, SELFPAY ==
--- NOTE | 2024-11-29 10:53 | RAD_ITS ---
EXAM: XR Abdomen, 2 Views and XR Chest, 1 View CLINICAL INDICATION: TECHNIQUE: Frontal view of the chest, frontal view of the abdomen/pelvis and upright or decubitus view of the abdomen. COMPARISON: No relevant prior studies available. FINDINGS: LUNGS AND PLEURAL SPACES: Unremarkable. No consolidation. No pneumothorax. HEART: Unremarkable. No cardiomegaly. MEDIASTINUM: Unremarkable. Normal mediastinal contour. INTRAPERITONEAL SPACE: No free air. GASTROINTESTINAL TRACT: Fecal retention in the colon consistent with constipation. No dilation. BONES/JOINTS: Unremarkable. No acute fracture. RAD/Acute Abdomen Inc Chest IMPRESSION: Fecal retention in the colon consistent with constipation. Reading Location[facility]
[2024-11-29 12:56] LABS: Hematocrit 36.8 % (37-47); Hemoglobin 11.7 g/dL (12.0-15.0); Mean Corp Hgb Conc 31.8 g/dL (32-36); Mean Corpuscular Hgb 27.5 pg (27.0-32.0); Mean Corpuscular Volume 86.6 fL (81-99); POSITIVE COUNT YES; POSITIVE MORPHOLOGY YES; Platelet Count 352 K/mm3 (150-450); RBC Distribution Width CV 13.4 % (11.6-14.6); RBC Distribution Width SD 41.8 fl (35.1-43.9); Red Blood Count 4.25 M/mm3 (4.2-5.4); White Blood Count 9.1 K/mm3 (4.4-11.0)
[2024-11-29 13:14] LABS: Differential Indicated MANUAL DIFF
[2024-11-29 13:24] LABS: ALB/GLOB Ratio 0.8 RATIO (0.9-2.4); AST(SGOT) 22 U/L (15-37); Alanine Aminotransfer ALT/SGPT 31 U/L (13-56); Albumin, Serum 3.4 g/dL (3.2-5.0); Alkaline Phosphatase 82 U/L (45-117); Anion Gap 7 (5-15); BUN 15 mg/dL (7-18); BUN/Creat Ratio 20.6 RATIO (10-20); Calcium,Total 9.2 mg/dL (8.5-10.1); Chloride 103 mmol/L (98-107); Creatinine, Serum 0.73 mg/dL (0.55-1.02); EST Glomerular Filtration Rate 87 mL/min (>60); Est Glom Filt Rate - Afr Amer 105 mL/min (>60); Globulin 4.1 g/dL (2.2-4.2); Glucose 124 mg/dL (74-106); Potassium 3.6 mmol/L (3.5-5.1); Protein, Total 7.5 g/dL (6.4-8.2); Sodium Level 137 mmol/L (136-145)
[2024-11-29 14:45] LABS: Eosinophil 3 % (0-5); Lymphocyte 25 % (19-41); Metamyelocyte 3 % (0-1); Monocyte 10 % (0-10); Myelocyte 5 % (0-0); Neutrophil-Segmented 54 % (47-70); Total Cells Counted 100 (MANUAL DIFF)
[2024-11-29 14:50] LABS: Absolute Lymphocyte Count 2.28 X10^3/uL (0.83-4.51); Absolute Neutrophil Count 4.9 X10^3/uL (2.0-7.7)
[2024-11-29 14:51] LABS: Platelet Estimate ADEQUATE (ADEQ); Red Cell Morphology NORM C+C NORMAL (NORM C&C)
[2024-12-01 09:12] LABS: Pathologist Review Reviewed
[2024-12-01 15:07] LABS: Deamidated Gliadin IgA 2 units (0-19); Deamidated Gliadin IgG 2 units (0-19); Endomysial Antibody IgA Negative (Negative); Immunoglobulin A 89 mg/dL (87-352); t-Transglutaminase IgA <2 U/mL (0-3)
== END | disposition home or self-care (01) ==
LOC: MTLAB 10:53
PROVIDERS: PCP Family Medicine; Referring Provider Family Medicine; Visit Provider Family Medicine
DX: N17.9 Acute kidney failure, unspecified (principal); D72.829 Elevated white blood cell count, unspecified; R14.0 Abdominal distension (gaseous)
CPT/HCPCS: 36415; 74022; 80053; 82784; 83516; 85025; 86255

== ENCOUNTER → 2024-12-20 | Outpatient (CLI) | payer OTHER, SELFPAY ==
[2024-12-20 13:14] LABS: Absolute Lymphocyte Count 2.77 X10^3/uL (0.83-4.51); Absolute Neutrophil Count 4.1 X10^3/uL (2.0-7.7); Basophil# 0.06 X10^3/uL; Basophil% 0.8 % (0-1); Eosinophil# 0.22 X10^3/uL; Eosinophils% 2.8 % (0-5); Hematocrit 39.3 % (37-47); Hemoglobin 12.7 g/dL (12.0-15.0); Lymphocyte # 2.77 X10^3/ul (0.83-4.51); Lymphocyte % 35.2 % (19-41); Mean Corp Hgb Conc 32.3 g/dL (32-36); Mean Corpuscular Hgb 28.3 pg (27.0-32.0); Mean Corpuscular Volume 87.5 fL (81-99); Mean Platelet Vol. 10.9 fl (6.2-12.0); Monocyte# 0.67 X10^3/uL; Monocyte% 8.5 % (0-10); NRBC Flagged by Analyzer 0 % (0-5); Neutrophil # 4.11 X10^3/uL (2.7-7.7); Neutrophil % 52.2 % (47-70); Platelet Count 317 K/mm3 (150-450); RBC Distribution Width CV 13.9 % (11.6-14.6); Red Blood Count 4.49 M/mm3 (4.2-5.4); White Blood Count 7.9 K/mm3 (4.4-11.0)
== END | disposition home or self-care (01) ==
LOC: MFPLAB 10:31
PROVIDERS: PCP Family Medicine; Referring Provider Family Medicine; Visit Provider Family Medicine
DX: R79.9 Abnormal finding of blood chemistry, unspecified (principal)
CPT/HCPCS: 36415; 85025

== ENCOUNTER → 2024-12-23 | Outpatient (CLI) | payer OTHER, SELFPAY ==
--- NOTE | 2024-12-23 09:21 | US_ITS ---
PROCEDURE: ULTRASOUND ABDOMEN LIMITED WITH ELASTOGRAPHY REASON FOR EXAM: STEATOSIS. COMPARISON: CT abdomen pelvis dated 11/24/2024. TECHNIQUE: Right upper quadrant abdominal ultrasound. Real-time grayscale and color flow imaging was performed along with routine image documentation. Shear wave elastography imaging for non-invasive assessment of liver tissue stiffness. FINDINGS: LIVER: Size: Unremarkable Length: 16.6 cm sagittally. Echotexture: Hyperechoic. Contour: Normal Lesions: A 2.4 x 2.4 x 1.9 cm anechoic nodule in the left hepatic lobe. Several anechoic nodules are noted in the right hepatic lobe measuring 0.8 cm, 1.6 cm, and 2.7 cm. Blood flow: Hepatopetal. Elastography: EQI Med: 9.9 kPa EQI Med Cole: 1.81 m/s GALLBLADDER: Surgically absent. COMMON BILE DUCT: Normal 0.48 cm in diameter.. PANCREAS: Echogenic parenchyma. Hypoechoic peripancreatic nodules are demonstrated measuring 1.8 x 1.9 x 0.7 cm and 1.6 x 3.3 x 1.7 cm. Right kidney: Size measures 10.0 x 5.0 x 3.9 cm. Cortex measures 1.0 cm. US/ABD Limited w/ Elastography IMPRESSION: 1. Steatosis. 2. F 2 to F 3, moderate to severe, likelihood of significant hepatic fibrosis. 3. Status post cholecystectomy. 4. Anechoic hepatic nodules consistent with cysts. 5. Prominent peripancreatic lymph nodes are suspected. 6. Hyperechoic pancreas parenchyma may be related to fatty replacement which c an be seen with advancing age. Reference Values: SRU <1.37 m/s (5.7kPa): No to mild fibrosis 1.37 m/s - 2.2 m/s: Moderate to severe fibrosis >2.2 m/s (15kPa): Significant fibrosis / cirrhosis METAVIR Score F2 or higher: 1.34 m/s (5.7kPa) F3 or higher: 1.55 m/s (7.3kPa) F4: 1.80 m/s (10kPa) Reading Location: [place] [id number]
== END | disposition home or self-care (01) ==
LOC: US 09:19
PROVIDERS: PCP Family Medicine
DX: K76.0 Fatty (change of) liver, not elsewhere classified (principal)
CPT/HCPCS: 76705; 76981

== ENCOUNTER → 2025-01-26 | Outpatient (CLI) | payer OTHER, SELFPAY ==
[2025-01-26 12:16] LABS: Mucous, Urine 0 SEEN /hpf (<or=2+)
[2025-01-26 16:12] LABS: Color, Urine Yellow (Yellow); Glucose, Dipstick Normal (Normal); Ketone-Dipstick Negative (Negative); Leukocyte Esterase-Dipstick 100 /ul (Negative); Nitrite-Dipstick Negative (Negative); Occult Blood-Urine Negative /ul (Negative); Protein-Dipstick Negative (Negative); Specific Gravity, Urine 1.005 (1.002-1.030); Urine Bilirubin Dipstick Negative (Negative); Urine Clarity Clear (Clear); Urine Urobilinogen Normal (Normal)
[2025-01-26 16:16] LABS: Absolute Lymphocyte Count 2.88 X10^3/uL (0.83-4.51); Absolute Neutrophil Count 5.1 X10^3/uL (2.0-7.7); Basophil# 0.05 X10^3/uL; Basophil% 0.6 % (0-1); Eosinophil# 0.31 X10^3/uL; Eosinophils% 3.4 % (0-5); Hemoglobin 13.7 g/dL (12.0-15.0); Lymphocyte # 2.88 X10^3/ul (0.83-4.51); Mean Corp Hgb Conc 32.6 g/dL (32-36); Mean Corpuscular Hgb 27.7 pg (27.0-32.0); Mean Platelet Vol. 10.9 fl (6.2-12.0); Monocyte# 0.65 X10^3/uL; Monocyte% 7.2 % (0-10); NRBC Flagged by Analyzer 0 % (0-5); Neutrophil # 5.08 X10^3/uL (2.7-7.7); Neutrophil % 56.4 % (47-70); Platelet Count 308 K/mm3 (150-450); RBC Distribution Width CV 13.2 % (11.6-14.6); RBC Distribution Width SD 40.8 fl (35.1-43.9); Red Blood Count 4.94 M/mm3 (4.2-5.4)
[2025-01-26 16:47] LABS: Microalbumin:Creatinine Ratio 470.9 mg/g CRE
[2025-01-26 16:54] LABS: Hemoglobin A1c 6.6 % (<=5.6)
[2025-01-26 16:54] LABS: Squamous Epithelial Cells - UA 0-5 SEEN /hpf (5-10); Transitional Epithelial - Ur 0-5 SEEN /hpf (0-5)
[2025-01-26 16:55] LABS: Bacteria RARE /hpf (None Seen); Red Blood Cells-Urine 0-5 SEEN /hpf (0-5); White Blood Cells 0-5 SEEN /hpf (0-5)
[2025-01-26 17:06] LABS: Cholesterol 196 mg/dL (<=200); High Density Lipoprotein 44 mg/dL; Low Density Lipoprotein Calc. 104 mg/dL; Magnesium 1.9 mg/dL (1.5-2.2); Triglycerides 241 mg/dL; Very Low Density Lipoprotein 48 mg/dL (5-40); Vitamin B12 1145 pg/mL (180-914); Vitamin D,25 Hydroxy 54.1 ng/mL (30-100); cholesterol:hdl ratio screen 4.47
[2025-01-26 17:30] LABS: ALB/GLOB Ratio 1.5 RATIO (0.9-2.4); AST(SGOT) 37 U/L (<=31); Alanine Aminotransfer ALT/SGPT 33 U/L (<=34); Albumin, Serum 4.6 g/dL (3.4-4.8); Alkaline Phosphatase 88 U/L (35-104); Anion Gap 14 (5-15); BUN 13 mg/dL (4-19); BUN/Creat Ratio 18.5 RATIO (10-20); Calcium,Total 10.2 mg/dL (7.6-11.0); Carbon Dioxide 21.4 mmol/L (21.0-32.0); Chloride 102 mmol/L (98-108); Creatinine, Serum 0.72 mg/dL (0.70-1.20); EST Glomerular Filtration Rate 95 (>60); Glucose 111 mg/dL (70-99); Potassium 4.3 mmol/L (3.3-5.1); Protein, Total 7.6 g/dL (5.9-8.4); Sodium Level 137 mmol/L (133-145); Total Bilirubin 0.32 mg/dL (0.00-1.30)
[2025-02-01 16:09] LABS: Vitamin B1, Thiamine 168.6 nmol/L (66.5-200.0)
== END | disposition home or self-care (01) ==
LOC: MFPLAB 12:12
PROVIDERS: PCP Family Medicine; Referring Provider Family Medicine; Visit Provider Family Medicine
DX: E11.59 Type 2 diabetes mellitus with other circulatory complications (principal)
CPT/HCPCS: 36415; 80053; 80061; 81001; 82043; 82306; 82570; 82607; 83036; 83735; 84207; 84425; 84443; 85025

== ENCOUNTER 2025-04-13 10:00 | Outpatient (CLI) | payer OTHER, SELFPAY ==
--- OUTSIDE RECORDS SUMMARY | 2025-04-13 11:54 | XMS RPT_ITS | CCD ---
Author Organization [facility] [employer]iniSyak Care Team Providers Care Knowledge Engineer Name Role Phone CHARLES CERVANTES JR Unavailable Unavailable GARETH MILLER Attending Unavailable Unavailable Primary Care Provider Unavaildeven e Unavailable Primary Care Provider Unavaildeven e Unavailable Primary Care Provider UnavailDr. Yung Severino Primary Care Provider [phone] Dr. Yung Valenzuela Referring Provider Dr. Jerald Garland Attending Provider Dr. Yung Valenzuela Primary Care Provider Dr. Yung Valenzuela Referring Provider Zechariah GREEN BELT, GREEN BELT-C Neela Attending Provider Dr. Yung Valenzuela Primary Care Provider Dr. Yung Valenzuela Referring Provider Zechariah GREEN BELT, GREEN BELT-C Neela Attending Provider Dr. Yung Valenzuela Primary Care Provider [phone] Dr. Yung Valenzuela Referring Provider Dr. Basim Sandoval Attending Provider AHMED, NICOLE Referring Unavailable Unavailable Primary Care Provider Yung Arrington MD Primary Care Provider SOLA KINCAID Referring Unavailable YUNG VALENZUELA Primary Care Unavailable WARDMED, NICOLE Referring Unavailable YUNG VALENZUELA Primary Care Unavailable SOFIYA HORTA Referring Unavailable SELF Referring Unavailable AHMED, NICOLE Attending Unavailable AHMED, NICOLE Attending Unavailable AHMED, NICOLE Referring Unavailable AHMED, NICOLE Referring Unavailable AHMED, NICOLE Admitting Unavailable AHMED, NICOLE Attending Unavailable AHMED, NICOLE Referring Unavailable AHMED, NICOLE Admitting Unavailable WARDMED, NICOLE Attending Unavailable YUNG VALENZUELA Primary Care Unavailable AHMED, NICOLE Referring Unavailable Dr. Yung Valenzuela MD Primary Care Provider [phone] Dr. Yung Valenzuela MD Attending Provider Nicolas DIEGO, Dr. Yung Rangel Referring Provider Rick DIEGO, Dr. Beyer Emergency Provider Lavern DO, Dr. Kirby Admit Provider Lavern DO, Dr. Kirby Other Provider Delvin CANTU, Dr. Corrales Attending Provider [phone] Delvin DO, Dr. Corrales Other Provider Alonso GREEN BELT-C, Jolene Attending Provider Alonso GREEN BELT-C, Jolene Referring Provider Dr. Yung Valenzuela MD Primary Care Provider Nicolas DIEGO, Dr. Yung Rangel Attending Provider Zechariah GREEN BELT-C, Neela Attending Provider Nicolas DIEGO, Dr. Yung Rangel Primary Care Provider Dr. Yung Valenzuela MD Attending Provider Dr. Yung Valenzuela MD Referring Provider [phone] Dr. Ulysses Sotelo MD Attending Provider Dr. Yung Valenzuela MD Primary Care Provider Dr. Yung Valenzuela MD Referring Provider Nicolas DIEGO, Dr. Yung Rangel Attending Provider Yung Valenzuela Primary Care Unavailable Kofi Puckett Admitting Unavailable Kofi Puckett Consulting Unavailable Antoni Bass Attending Unavailable Antoni Bass Consulting Unavailable Yung Valenzuela Referring Unavailable Zechariah GREEN BELT, Neela Attending Unavailable Yung Valenzuela Primary Care Unavailable Yung Valenzuela Primary Care Unavailable Kofi Puckett Consulting Unavailable Kofi Puckett Admitting Unavailable Tershielaky, Antoni Attending Unavailable Schinner, Yung E Primary Care Unavailable Schinner, Yung E Referring Unavailable Ulysses Sotelo Attending Unavailable Schinner, Yung E Referring Unavailable Schinner, Yung E Primary Care Unavailable Zechariah GO, Neela Attending Unavailable Schinner, Yung E Primary Care Unavailable Schinner, Yung E Referring Unavailable Schinner, Yung E Attending Unavailable Schinner, Yung E Referring Unavailable Schinner, Yung E Attending Unavailable Schinner, Yung E Primary Care Unavailable Kofi Puckett Attending Unavailable Schinner, Yung E Referring Unavailable Schinner, Yung E Primary Care Unavailable Schinner, Yung E Attending Unavailable Schinner, Yung E Referring Unavailable Schinner, Yung E Primary Care Unavailable Schinner, Yung E Attending Unavailable Jolene Gupta Referring Unavailable Jolene Gupta Attending Unavailable Schinner, Yung E Primary Care Unavailable Schinner, Yung E Referring Unavailable Jolene Gupta Attending Unavailable Schinner, Yung E Primary Care Unavailable Schinner, Yung E Primary Care Unavailable Schinner, Yung E Referring Unavailable Schinner, Yung E Attending Unavailable Schinner, Yung E Attending Unavailable Schinner, Yung E Primary Care Unavailable Schinner, Yung E Attending Unavailable Schinner, Yung E Primary Care Unavailable Schinner, Yung E Referring Unavailable Schinner, Yung E Attending Unavailable Schinner, Yung E Primary Care Unavailable Schinner, Yung E Primary Care Unavailable Zechariah GREEN BELT, Neela Referring Unavailable Zechariah GREEN BELT, Neela Attending Unavailable Allergies Allergy Classification Reported Allergen(s) Allergy Type Date of Onset Reaction(s) Facility (20 sources) atorvastatin; Translations: [ATORVASTATIN] Drug Allergy 6 Other: See Comments, Myalgia [facility] Repository (20 sources) buPROPion; Translations: [BUPROPION] Drug Allergy 6 Diarrhea [facility] Repository (20 sources) naproxen; Translations: [NAPROXEN] Drug Allergy 1 Hives [facility] Repository (20 sources) sertraline; Translations: [SERTRALINE] Drug Allergy 6 Diarrhea [facility] Repository (1 source) OTHER; Translations: [OTHER] Propensity to adverse reactions (disorder) 5 [facility] Repository (20 sources) cycloSPORINE; Translations: [CYCLOSPORINE] Drug Allergy 9 Other: See Comments [facility] (20 sources) Ibuprofen; Translations: [IBUPROFEN] Drug Allergy 0 Rash [facility] (20 sources) Pravastatin; Translations: [PRAVASTATIN] Drug Allergy 7 Myalgia [facility] Work Phone: (12 sources) seasonal allergies [Other] Propensity to adverse reactions 5 [facility] (19 sources) Seasonal allergy; Translations: [SEASONAL ALLERGIES] Allergy to substance 2 Other: See Comments [facility] (4 sources) metFORMIN Drug Allergy 5 Diarrhea [facility] (4 sources) Pollen Allergy to substance 5 NEEDS FOLLOW-UP [facility] (5 sources) cat dander; Translations: [cat dander] Allergy to substance 5 NEEDS FOLLOW-UP [facility] (4 sources) Mwbcbur-Xmu-Sro Reductase Inhibitor Propensity to adverse reactions 5 muscle cramps [facility] Comment on above: atorvastatin, pravas tatin (1 source) cycloSPORINE Drug Allergy 5 [facility] Repository (1 source) metFORMIN Drug Allergy 5 [facility] Repository (1 source) Pollen Drug allergy (disorder) 5 [facility] Repository (1 source) Haxwkeu-Tzv-Tgo Reductase Inhibitor Drug allergy (disorder) 5 [facility] Repository Medications Current Medications Medication Drug Class(es) Dates Sig (Normalized) Sig (Original) 8 hr acetaminophen 650 mg extended release oral tablet (19 sources) Start: 12-08-2024 Acetaminophen (Tylenol Arthritis Pain) 650 mg tablet extended release Active 1300 mg PO Q12H December 08, 2024 10:06am Start: 06-05-2021 End: 12-08-2024 take 1 tablet by mouth every twelve hours Acetaminophen (Tylenol Arthritis Pain) 650 mg tablet extended release Discontinued 650 mg PO Q12H June 05, 2021 12:00am December 08, 2024 10:10am acetaminophen (T YLENOL ARTHRITIS ORAL) Take by mouth as needed. Active acetaminophen (T YLENOL ARTHRITIS ORAL) Take by mouth. Active acetaminophen (T YLENOL ARTHRITIS ORAL) Take by mouth. 0 Active ascorbic acid 500 mg oral capsule (20 sources) Vitamin C Start: 11-24-2024 take 1 capsule by mouth once daily Ascorbic Acid (Vitamin C) 500 mg capsule Active 500 mg PO DAILY November 24, 2024 1:00am ascorbic acid (V ITAMIN C ORAL) Take by mouth. 0 Active Comment on above: Take by mouth. atomoxetine 40 mg oral capsule (10 sources) Norepinephrine Reuptake Inhibitor Start: 07-29-2022 atomoxetine (STRATTERA) 40 mg capsule calcium carbonate 750 mg chewable tablet (4 sources) Start: 11-24-2024 Calcium Carbonate (Tums Extra Strength Smoothies) 300 mg (750 mg) tablet,chewable Active 600 mg PO THREE TIMES A DAY as needed for dyspepsia November 24, 2024 1:00am calcium carbonate 1500 mg / cholecalciferol 200 unt oral capsule (20 sources) Vitamin D Start: 11-24-2024 Calcium Carbonate-Vitamin D3 (Calcium 600 + D(3)) 600 mg-5 mcg (200 unit) capsule Active 1 NMA PO DAILY November 24, 2024 1:00am take 1 tablet by suzanne twice daily at mealtime yddvqfd-yjkzuhiae-ygknwry D3 500 mg-5 mc g (200 unit) per tablet Take 1 tablet by mouth two times a day with meals. Active Comment on above: Take 1 tablet by suzanne twice daily with meals. cephalexin 500 mg oral capsule (2 sources) Cephalosporin Antibacterial Start: End: take 1 capsule by mouth four times daily cephALEXin (KEFLEX) 500 mg capsule Take 1 capsule by mouth four times daily for 7 days. 28 capsule 07/08/2024 07/15/2024 Active cetirizine hydrochloride 10 mg oral capsule (20 sources) Histamine-1 Receptor Antagonist Start: 021 End: take 1 capsule by mouth at bedtime Cetirizine (Zyrtec) 10 mg capsule Active 10 mg PO BEDTIME December 15, 2024 11:04am Comment on above: Take by mouth. cholecalciferol 0.125 mg oral capsule (20 sources) Vitamin D Start: take 1 capsule by mouth once daily Cholecalciferol (Vitamin D3) 125 mcg (5,000 unit) capsule Active 125 ug PO daily December 15, 2024 1:00am Start: 12-08-2024 End: 12-15-2024 take 1 capsule by mouth once daily Cholecalciferol (Vitamin D3) 50 mcg (2,000 unit) capsule Discontinued 50 ug PO daily December 08, 2024 1:00am December 15, 2024 11:04am Start: 05-22-2016 take 1 tablet by suzanne th twice daily Cholecalciferol, Vitamin D3, 2,000 unit cap Take 1 tablet by mouth twice daily. 05/22/2016 Active Comment on above: Take 1 tablet by suzanne th twice daily. CPAP (20 sources) Start: 09-30-2021 CPAP Indications: Obstructiv e sleep apnea AutoPAP 5-15 cmH2O with humidification and mask fitting (possible dreamwear of wisp). [employer] supplies. Note pt compliant with current device but machine reporting device beyond motor hours. 1 Each 09/30/2021 Active Start: 07-20-2020 CPAP Indicatio ns: KAVON on CPAP Needs new DME for insurance. Also needs supplies and new CPAP mask - current nasal pillows falling out of nose (fx mary ann) and dreamwear was rubbing hair out). [employer] supplies. 1 Device 07/20/2020 Active Start: 09-20-2019 CPAP Indicatio ns: Obstructive sleep apnea Patient on PAP therapy. Needs supplies. [employer] supplies. Please provide download from PAP if possible. 1 Device 09/20/2019 Active Comment on above: Patient on PAP thera py. Needs supplies. [employer] supplies. Please provide download from PAP if possible. Needs new DME for in surance. Also needs supplies and new CPAP mask - current nasal pillows falling out of nose (fx mary ann) and dreamwear was rubbing hair out). [employer] supplies. AutoPAP 5-15 cmH2O w ith humidification and mask fitting (possible dreamwear of wisp). [employer] supplies. Note pt compliant with current device but machine reporting device beyond motor hours. CPAP/BIPAP/OTHER (17 sources) Start: 08-10-2022 End: 12-25-2049 CPAP/BIPAP/OTHER Type .CPAPSettings into a note to see current settings/supplies/DME information. 1 Each 08/10/2022 12/25/2049 Active Start: 08-10-2022 End: 12-25-2049 CPAP/BIPAP/OTHER Type .CPAPS ettings into a note to see current settings/supplies/DME information. 1 Each 0 08/10/2022 12/25/2049 Active Comment on above: Type .CPAPSettings i nto a note to see current settings/supplies/DME information. CYANOCOBALAMIN, VITAMIN B-12, (VITAMIN B-12 ORAL) (20 sources) CYANOCOBALAMIN, VITAMIN B-12, (VITAMIN B-12 ORAL) Take by mouth. 0 Active Comment on above: Take by mouth. cyclobenzaprine hydrochloride 10 mg oral tablet (20 sources) Muscle Relaxant Start: 2024 take 1 tablet by mouth once daily as needed Cyclobenzaprine 10 mg tablet Active 10 mg PO daily as needed December 08, 2024 1:00am Start: 06-17-2021 take 1 tablet by suzanne th every eight hours as needed cyclobenzaprine (FLEXERIL) 10 mg tablet Take 1 tablet by mouth three times daily as needed for muscle spasm. 90 tablet 3 06/17/2021 Active Start: 06-05-2021 End: 03-26-2024 take 1 tablet by mouth at bedtime Cyclobenzaprine 5 mg tablet Discontinued 5 mg PO AT BEDTIME June 05, 2021 12:00am March 26, 2024 10:31am Comment on above: Take 1 tablet by suzanne th three times daily as needed for muscle spasm. diclofenac sodium 75 mg delayed release oral tablet (20 sources) Nonsteroidal Anti-inflammatory Drug Start: 12-08-2024 Diclofenac Sodium 75 mg tablet,delayed release (DR/EC) Active 75 mg PO as needed for pain December 08, 2024 1:00am Start: 07-08-2024 End: 07-20-2024 take 1 tablet by mouth every twelve hours at mealtime as needed for pain diclofenac, EC, (VOLTAREN) 75 mg EC tablet Indications: osteoarthritis Take 1 tablet by mouth every 12 hours with food as needed for pain. 60 tablet 2 07/20/2024 07/20/2024 Discontinued Start: 09-17-2021 End: 07-08-2024 take 1 tablet by mouth twice daily as needed for pain diclofenac, EC, (VOLTAREN) 75 mg EC tablet Indications: Cervical spondylosis Take 1 tablet by mouth twice daily as needed (for pain.). 60 tablet 2 09/17/2021 07/08/2024 Discontinued Comment on above: Take 1 tablet by [facility] twice daily as needed (for pain.). DULoxetine 60 mg delayed release oral capsule (20 sources) Serotonin and Norepinephrine Reuptake Inhibitor Start: take 1 capsule by mouth once daily Duloxetine 60 mg capsule,delayed release(DR/EC) Active 60 mg PO DAILY November 24, 2024 1:00am Start: 12-29-2023 End: 11-24-2024 take 3 capsules by mouth once daily Duloxetine 20 mg capsule,delayed release(DR/EC) Discontinued 60 mg PO DAILY December 29, 2023 11:23am November 24, 2024 3:52pm Start: 12-29-2023 take 60 mg by mouth once daily Duloxetine Active 60 MG PO DAILY December 29, 2023 11:23am Start: 03-05-2021 End: 12-29-2023 take 1 capsule by mouth twice daily Duloxetine 20 mg capsule,delayed release(DR/EC) Discontinued 20 mg PO TWICE A DAY March 05, 2021 12:00am December 29, 2023 11:25am Start: 07-25-2019 take 1 capsule by [facility] once daily DULoxetine (CYMBALTA) 60 mg capsule Indications: Depression, unspecified depression type , Other mixed anxiety disorders Take 1 capsule by mouth once daily. 30 capsule 11 07/25/2019 Active Comment on above: Take 1 capsule by [facility] once daily. estradiol 0.1 mg/ml vaginal cream (20 sources) Estrogen Start: 12-08-2024 Estradiol 0.01 % (0.1 mg/gram) cream Active 1 g VAGINAL 3 TIMES A WEEK December 08, 2024 1:00am Start: 06-23-2019 estradiol (EST RACE) 0.01 % (0.1 mg/gram) vaginal cream APPLY A PEA SIZE AMOUNT OF CREAM TO FINGER AND LUBRICATE VAGINAL TISSUE 3 TIMES WEEKLY 2 06/23/2019 Active Comment on above: APPLY A PEA SIZE BORA UNT OF CREAM TO FINGER AND LUBRICATE VAGINAL TISSUE 3 TIMES WEEKLY fluticasone propionate 0.05 mg/actuat metered dose nasal spray (1 source) Corticosteroid Start: take 50 ug nasal route once daily Fluticasone Propionate (Flonase Allergy Relief) 50 mcg/actuation spray,suspension Active 1 NMA INTRANASAL daily April 04, 2025 12:00am administer into each nostril gabapentin 300 mg oral capsule (20 sources) Anti-epileptic Agent Start: End: 3 gabapentin (NEURONTIN) 300 mg capsule Indications: PLMD (periodic limb movement disorder) Take 2-3 caps nightly as instructed. 90 capsule 5 08/08/2022 Active Start: 09-30-2021 End: 01-29-2022 gabapentin (NEURONTIN) 300 m g capsule Indications: PLMD (periodic limb movement disorder) Take 2-3 caps nightly as instructed. 90 capsule 2 09/30/2021 01/29/2022 Discontinued Start: 03-05-2021 End: 06-05-2021 take 1 capsule by mouth once daily Gabapentin 100 mg capsule Discontinued 100 mg PO DAILY March 05, 2021 12:00am June 05, 2021 10:59am Comment on above: Take 2-3 caps nightl y as instructed. Ipratropium (4 sources) Anticholinergic Start: 01-08-2023 Ipratropium [place] Active 1 SPRAY INTRANASAL 2 to 3 times per day January 07, 2023 11:00pm administer into each nostril Start: 01-08-2023 Ipratropium Br omide Active 1 SPRAY INTRANASAL 2 to 3 times per day January 08, 2023 12:00am administer into each nostril Lactobacillus Combination No.4 (Probiotic) 3 billion cell capsule (4 sources) Start: 12-08-2024 take 3 capsules by mouth once daily Lactobacillus Combination No.4 (Probiotic) 3 billion cell capsule Active 3000 NMA PO daily December 08, 2024 1:00am administer with a meal loratadine 10 mg oral tablet (20 sources) take 1 tablet by mouth once daily loratadine (CLARITIN) 10 mg tablet Take 10 mg by mouth once daily. Active Comment on above: Take 10 mg by mouth once daily. methylPREDNISolone (8 sources) Corticosteroid Start: 09-04-2022 methylPREDNISolone (MEDROL, RICARDO,) 4 mg Dose-Pack Indications: Cervical spondylosis As Instructed per package 1 tablet 0 09/04/2022 Active Comment on above: As Instructed per brissa lozada minocycline 50 mg oral capsule (20 sources) Tetracycline-class Drug Start: 12-08-2024 Minocycline 50 mg capsule Active 50 mg PO December 08, 2024 1:00am TAKE 1 CAPSULE BY MOUTH ONCE DAILY FOR 10 DAYS ON AND 10 DAYS OFF Start: 03-05-2021 End: 11-24-2024 take 1 capsule by mouth once daily Minocycline 50 mg capsule Discontinued 50 mg PO DAILY December 29, 2023 11:24am November 24, 2024 3:53pm take for 10 days; stop for 10 days; repeat Start: 09-13-2019 Minocycline HC l 50 mg tablet TAKE 1 PILL DAILY FOR 10 DAYS ONLY DURING FLARES 30 tablet 5 09/13/2019 Active Comment on above: TAKE 1 PILL DAILY FO R 10 DAYS ONLY DURING FLARES Multivitamin (One Daily Multivitamin) tablet (9 sources) Start: 06-05-2021 take 1 tablet by mouth once daily Multivitamin (One Daily Multivitamin) tablet Active 1 {tbl} PO DAILY June 05, 2021 12:00am Start: 06-05-2021 take 1 tablet by suzanne th once daily Multivitamin (One Daily Multivitamin) tablet Active 1 TABLET PO DAILY June 05, 2021 12:00am Start: 06-05-2021 take 1 tablet by suzanne th once daily Multivitamin (One Daily Multivitamin) tablet Active 1 TABLET PO DAILY June 04, 2021 11:00pm Multivitamin capsule (20 sources) take 1 capsule by mo ut once daily Multivitamin capsule Take 1 capsule by mouth once daily. Active take 1 capsule by mouth once molly ly Multivitamin capsule Take 1 capsule by mouth once daily. 0 Active Comment on above: Take 1 capsule by mo uth once daily. mupirocin 0.02 mg/mg topical ointment (2 sources) RNA Synthetase Inhibitor Antibacterial Start: 07-03-2024 End: 07-07-2024 mupirocin (BACTROBAN) 2 % ointment Indications: Pre-op examination Use in the nose two times a day for 5 days. Apply 1/2 inch to each nostril with a Q-tip twice daily x 5 days. Start on 05/01/2024 22 g 07/03/2024 07/07/2024 Active Start: 05-01-2024 End: 05-05-2024 mupirocin (BACTROBAN) 2 % oi ntment Indications: Pre-op examination Use in the nose two times a day for 5 days. Apply 1/2 inch to each nostril with a Q-tip twice daily x 5 days. Start on 05/01/2024 Patient should start on May 01, 2024. 22 g 0 05/01/2024 05/05/2024 Active nabumetone 500 mg oral tablet (20 sources) Nonsteroidal Anti-inflammatory Drug Start: 06-17-2021 take 1 tablet by mouth once daily nabumetone (RELAFEN) 500 mg tablet Take 1 tablet by mouth once daily. 60 tablet 2 06/17/2021 Active Start: 06-05-2021 End: 12-29-2023 take 1 tablet by mouth twice daily Nabumetone 500 mg tablet Discontinued 500 mg PO TWICE A DAY June 05, 2021 12:00am December 29, 2023 11:24am Comment on above: Take 1 tablet by suzanne once daily. 24 hr oxybutynin chloride 10 mg extended release oral tablet (20 sources) Cholinergic Muscarinic Antagonist Start: 11-24-2024 take 1 tablet by mouth once daily Oxybutynin Chloride 10 mg tablet extended release 24hr Active 10 mg PO DAILY November 24, 2024 1:00am Start: 06-05-2021 End: 03-26-2024 take 2 tablets by mouth once daily Oxybutynin Chloride 5 mg tablet Discontinued 10 mg PO DAILY June 05, 2021 11:04am March 26, 2024 10:31am Start: 06-05-2021 take 10 mg by mouth once daily Oxybutynin Chloride Active 10 MG PO DAILY June 05, 2021 11:04am Start: 06-05-2021 End: 06-05-2021 take 1 tablet by mouth once daily Oxybutynin Chloride 5 mg tablet Discontinued 5 mg PO DAILY June 05, 2021 12:00am June 05, 2021 11:06am Start: 04-06-2019 take 1 tablet by suzanne th once daily oxybutynin ER (DITROPAN XL) 10 mg 24 hr tablet TAKE 1 TABLET BY MOUTH 1 TIME PER DAY SE WERE DISCUSSED INCLUDING DRY MOUTH AND CONSTIPATION 3 04/06/2019 Active Comment on above: TAKE 1 TABLET BY SUZANNE TH 1 TIME PER DAY SE WERE DISCUSSED INCLUDING DRY MOUTH AND CONSTIPATION oxyCODONE hydrochloride 5 mg oral tablet (1 source) Opioid Agonist Start: 07-08-20 End: 07-15-20 take 1 tablet by mouth every six hours as needed for pain, then take 4 tablets by mouth every twenty-four hours as needed for pain oxyCODONE IR (ROXICODONE) 5 mg immediate release tablet Indications: S/P insertion of spinal cord stimulator , Malfunction of spinal cord stimulator, initial encounter ([facility]) Take 1 tablet by mouth every 6 hours as needed for pain for up to 7 days. For severe breakthrough pain only. Do not take more than 4 tablets in a 24 hour period. 28 tablet 07/08/2024 07/15/2024 Active pantoprazole 40 mg delayed release oral tablet (1 source) Proton Pump Inhibitor Start: 03-15-20 take 1 tablet by mouth 1 hour(s) before breakfast Pantoprazole 40 mg tablet,delayed release (DR/EC) Active 40 mg PO .breakfast March 15, 2025 12:00am Take 1 hour before breakfast. polyethylene glycol 3350 92026 mg powder for oral solution (20 sources) Osmotic Laxative Start: 12-08-19 take 17 g by mouth once daily Polyethylene Glycol 3350 17 gram/dose powder Active 17 g PO daily December 08, 2024 1:00am polyethylene gly col 3350 (MIRALAX, GLYCOLAX) 17 gram/dose powder Take by mouth once daily. Active Comment on above: Take by mouth once d aily. PYRIDOXINE HCL, VITAMIN B6, (VITAMIN B-6 ORAL) (20 sources) PYRIDOXINE HCL, VITAMIN B6, (VITAMIN B-6 ORAL) Take by mouth. 0 Active Comment on above: Take by mouth. rosuvastatin calcium 5 mg oral tablet (20 sources) HMG-CoA Reductase Inhibitor Start: take 2 tablets by mouth once daily Rosuvastatin 5 mg tablet Active 10 mg PO DAILY March 15, 2025 3:20pm Start: 07-25-2019 End: 03-15-2025 take 1 tablet by mouth once daily Rosuvastatin 5 mg tablet Discontinued 5 mg PO DAILY March 05, 2021 12:00am March 15, 2025 3:21pm Comment on above: Take 1 tablet by suzanne th daily at bedtime. As directed triamcinolone acetonide 1 mg/ml topical cream (20 sources) Corticosteroid Start: 05-26-2013 triamcinolone acetonide 0.1 % cream Indications: Dermatitis Apply 1 application to affected area twice daily. Apply to affected area for rash. 30 g 0 05/26/2013 Active Comment on above: Apply 1 application to affected area twice daily. Apply to affected area for rash. ubidecarenone 100 mg oral capsule (4 sources) Start: 12-15-2024 Coenzyme Q10 (Co Q-10) 100 mg capsule Active 100 mg PO daily December 15, 2024 1:00am UBIDECARENONE (CO Q-10 ORAL) (20 sources) UBIDECARENONE (C O Q-10 ORAL) Take by mouth. 0 Active Comment on above: Take by mouth. Vitamin E 400 unit tablet (1 source) Start: 04-04-2025 Vitamin E 400 unit tablet Active 45 mg PO daily April 04, 2025 12:00am Zinc (20 sources) ZINC ORAL Take b y mouth as needed. Active ZINC ORAL Take b y mouth as needed. 0 Active ZINC ORAL Take b y mouth. 0 Active Comment on above: Take by mouth. zinc gluconate 50 mg oral tablet (4 sources) Start: 11-24-2024 take 1 tablet by mouth once daily Zinc Gluconate 50 mg tablet Active 50 mg PO DAILY November 24, 2024 1:00am Completed/Discontinued Medications Medication Drug Class(es) Dates Sig (Normalized) Sig (Original) acetaminophen 325 mg / HYDROcodone bitartrate 5 mg oral tablet (2 sources) Opioid Agonist Start: 07-08-2024 End: 07-08-2024 HYDROcodone-acetam inophen (NORCO) 5-325 mg per tablet Indications: S/P insertion of spinal cord stimulator , Malfunction of spinal cord stimulator, initial encounter ([facility]) Take 1 tablet every 6 hours as needed for severe breakthrough pain. Do not exceed more than 4 tablets in 24 hour period. 28 tablet 07/08/2024 07/08/2024 Discontinued amoxicillin 500 mg oral capsule (4 sources) Penicillin-class Antibacterial Start: 11-26-2024 End: 12-08-2024 take 1 capsule by mouth three times daily Amoxicillin 500 mg capsule Discontinued 500 mg PO THREE TIMES A DAY 14 November 26, 2024 1:00am December 08, 2024 10:09am amoxicillin 875 mg / clavulanate 125 mg oral tablet (4 sources) Penicillin-class Antibacterial Start: 03-26-2024 End: 04-05-2024 Amoxicillin-Pot Clavulanate 875-125 mg tablet Discontinued 1 {tbl} PO TWICE A DAY 20 March 26, 2024 12:00am April 04, 2024 12:00am April 05, 2024 12:04am armodafinil 150 mg oral tablet (20 sources) Start: 03-31-2023 End: 06-25-2023 take 1 tablet by mouth once daily in the morning Armodafinil 150 mg tablet Discontinued 150 mg PO EVERY MORNING March 31, 2023 12:00am June 25, 2023 1:55pm Subsequent prescriptions to be managed by patient's primary physician; this was told to patient today via telephone call. Start: 01-23-2023 End: 02-22-2023 take 1 tablet by mouth once daily armodafinil (NUVIGIL) 250 mg tab Indications: Hypersomnia , KAVON (obstructive sleep apnea) Take 1 tablet by mouth once daily for 30 days. 30 tablet 0 01/23/2023 Active Start: 09-30-2021 End: 09-07-2022 take 1 tablet by mouth once daily armodafinil (NUVIGIL) 250 mg tab Indications: Hypersomnia , KAVON (obstructive sleep apnea) Take 1 tablet by mouth once daily for 30 days. 30 tablet 5 08/08/2022 Active Start: 06-05-2021 End: 03-31-2023 take 250 mg by mouth once Armodafinil Discontinued 250 MG PO ONCE June 05, 2021 11:04am March 31, 2023 12:48pm Start: 06-05-2021 End: 03-31-2023 take 1 tablet by mouth once Armodafinil 50 mg tablet Discontinued 250 mg PO ONCE June 05, 2021 11:04am March 31, 2023 12:48pm Start: 06-05-2021 End: 06-05-2021 take 150 mg by mouth once daily in the morning Armodafinil Discontinued 150 MG PO EVERY MORNING June 05, 2021 12:00am June 05, 2021 11:06am Comment on above: Take 1 tablet by suzanne th once daily for 90 days. Take 1 tablet by suzanne th once daily for 30 days. 5 ml bupivacaine hydrochloride 5 mg/ml injection (1 source) Amide Local Anesthetic Start: 08-05-2022 End: 08-05-2022 bupivacaine (PF) 0.5 % (5 mg/mL) 15 mg injection Start: 08-05-2022 End: 08-05-2022 bupivacaine (PF) 0.5 % (5 mg /mL) 15 mg injection Cranberry Extract (4 sources) Non-Standardized Food Allergenic Extract, Non-Standardized Plant Allergenic Extract Start: 12-15-2024 End: 04-04-2025 take 1 capsule by mouth twice daily at mealtime Cranberry Extract 500 mg capsule Discontinued 500 mg PO TWICE A DAY December 15, 2024 1:00am April 04, 2025 12:49pm administer with meals Start: 12-15-2024 take 1 capsule by mo ut twice daily at mealtime Cranberry Extract 500 mg capsule Active 500 mg PO TWICE A DAY December 15, 2024 1:00am administer with meals dexamethasone phosphate 10 mg/ml injectable solution (1 source) Corticosteroid Start: 08-05-2022 End: 08-05-2022 dexAMETHasone sodium phosphate 10 mg injection (DECADRON) Start: 08-05-2022 End: 08-05-2022 dexAMETHasone sodium phospha te 10 mg injection (DECADRON) ibuprofen 200 mg oral capsule (20 sources) Nonsteroidal Anti-inflammatory Drug Start: 01-02-2011 End: 07-08-2024 Ibuprofen 200 mg ORAL Cap Take by mouth every 4 hours as needed. FOR PAIN. 0 01/02/2011 07/08/2024 Discontinued Comment on above: Take by mouth every 4 hours as needed. FOR PAIN. Ipratropium [place] 21 mcg (0.03 %) spray,non-aerosol (4 sources) Start: 01-08-2023 End: 04-04-2025 Ipratropium [place] 21 mcg (0.03 %) spray,non-aerosol Discontinued 1 NMA INTRANASAL 2 to 3 times per day as needed for allergy symptoms January 08, 2023 12:00am April 04, 2025 12:50pm administer into each nostril Start: 01-08-2023 Ipratropium Br omide 21 mcg (0.03 %) spray,non-aerosol Active 1 NMA INTRANASAL 2 to 3 times per day as needed for allergy symptoms January 08, 2023 12:00am administer into each nostril levoFLOXacin 500 mg oral tablet (4 sources) Quinolone Antimicrobial Start: 12-08-2024 End: 12-15-2024 take 1 tablet by mouth twice daily Levofloxacin 500 mg tablet Discontinued 500 mg PO TWICE A DAY December 08, 2024 1:00am December 15, 2024 11:05am 10 ml lidocaine hydrochloride 20 mg/ml injection (1 source) Antiarrhythmic, Amide Local Anesthetic Start: 08-05-2022 End: 08-05-2022 lidocaine (PF) 20 mg/mL (2 %) 200 mg injection (XYLOCAINE) Start: 08-05-2022 End: 08-05-2022 lidocaine (PF) 20 mg/mL (2 % ) 200 mg injection (XYLOCAINE) lisinopril 20 mg oral tablet (20 sources) Angiotensin Converting Enzyme Inhibitor Start: 03-26-2020 take 1 tablet by mouth once daily Lisinopril 20 mg tablet Active 20 mg PO DAILY December 29, 2023 11:24am Start: 03-26-2020 End: 12-29-2023 take 1 tablet by mouth twice daily Lisinopril 20 mg tablet Discontinued 20 mg PO TWICE A DAY March 05, 2021 12:00am December 29, 2023 11:25am Comment on above: Take 20 mg by mouth twice daily. metFORMIN hydrochloride 500 mg oral tablet (20 sources) Biguanide Start: End: take 1 tablet by mouth twice daily Metformin 500 mg tablet Discontinued 500 mg PO TWICE A DAY 180 90 March 15, 2025 12:00am April 04, 2025 12:51pm Start: 11-24-2024 End: 11-26-2024 Metformin 500 mg tablet exte nded release 24 hr Discontinued 1000 mg PO TWICE A DAY November 24, 2024 1:00am November 26, 2024 12:52pm Start: 03-05-2021 End: 11-24-2024 take 1 tablet by mouth twice daily Metformin 500 mg tablet extended release 24hr Discontinued 500 mg PO TWICE A DAY March 05, 2021 12:00am November 24, 2024 3:49pm Start: 04-05-2020 metFORMIN ER ( GLUCOPHAGE XR) 500 mg 24 hr tablet twice daily. 04/05/2020 Active Comment on above: twice daily. omeprazole 20 mg delayed release oral capsule (4 sources) Proton Pump Inhibitor Start: 5 End: 5 take 1 capsule by mouth once daily Omeprazole 20 mg capsule,delayed release(DR/EC) Discontinued 20 mg PO daily December 08, 2024 1:00am March 15, 2025 3:26pm predniSONE 10 mg oral tablet (4 sources) Start: 4 End: 5 Prednisone 10 mg tablet Discontinued 10 mg PO .COMPLEX March 26, 2024 12:00am November 24, 2024 3:54pm Take 4 pills for 3 days, 3 pills for 3 days, 2 pills for 3 days, take 1 pill for 3 days Vitamin B Complex (13 sources) End: 2 take 1 tablet by mouth once daily VITAMIN B COMPLEX (B COMPLEX ORAL) Take 1 tablet by mouth once daily. 0 08/08/2022 Discontinued take 1 tablet by mouth once julianna y VITAMIN B COMPLEX (B COMPLEX ORAL) Take 1 tablet by mouth once daily. 0 Active Comment on above: Take 1 tablet by suzanne once daily. Problems Active Problems Problem Classification Problem Date Documented Da te Episodic/Chronic Acute bronchitis (9 sources) Acute bronchitis; Translations: [Acute bronchitis, unspecified] 03-05-2021 Episodic Attention-deficit, conduct, and disruptive behavior disorders (4 sources) Attention deficit hyperactivity disorder; Translations: [Attention-deficit hyperactivity disorder, unspecified type] 12-08-2024 Chronic Complication of device; implant or graft (16 sources) Mechanical complication of nervous system device; Translations: [Other mechanical complication of implanted electronic neurostimulator of spinal cord electrode (lead), initial encounter] Onset: 4 12-23-2023 Episodic Diabetes mellitus with complications (6 sources) Complication due to diabetes mellitus; Translations: [Type 2 diabetes mellitus with unspecified complications] Onset: 4 12-08-2024 Chronic Diabetes mellitus without complication (20 sources) Type 2 diabetes mellitus without complication; Translations: [Type 2 diabetes mellitus without complications] Onset: 7 04-20-2017 Chronic Diseases of white blood cells (8 sources) Leukocytosis; Translations: [Elevated white blood cell count, unspecified] Onset: 5 12-08-2024 Chronic Disorders of lipid metabolism (20 sources) Mixed hyperlipidemia; Translations: [Mixed hyperlipidemia] Onset: 6 10-21-2021 Chronic Esophageal disorders (2 sources) Gastroesophageal reflux disease; Translations: [Gastro-esophageal reflux disease without esophagitis] 03-15-2025 Chronic Essential hypertension (20 sources) Essential hypertension; Translations: [Essential (primary) hypertension] Onset: 6 11-19-2015 Chronic Headache; including migraine (5 sources) Cervicogenic headache; Translations: [Cervicogenic headache] Onset: 4 Episodic Menstrual disorders (20 sources) Dysmenorrhea; Translations: [Dysmenorrhea, unspecified] Onset: 1 04-14-2011 Chronic Mood disorders (20 sources) Depressive disorder; Translations: [Other specified depressive episodes] Onset: 6 09-22-2006 Chronic Other aftercare (1 source) Long-term current use of stimulant; Translations: [Other correction (current) drug therapy] Episodic Other circulatory disease (4 sources) Transient hypotension; Translations: [Hypotension, unspecified] 11-24-2024 Episodic Other gastrointestinal disorders (11 sources) Constipation; Translations: [Constipation, unspecified] 12-15-2024 Episodic Other hereditary and degenerative nervous system conditions (1 source) Restless legs; Translations: [Restless legs syndrome] Chronic Other inflammatory condition of skin (20 sources) Ocular rosacea; Translations: [Other rosacea] 07-05-2014 Chronic Other liver diseases (10 sources) Fatty (change of) liver, not elsewhere classified; Translations: [Metabolic dysfunction-associated steatotic liver disease (MASLD)] Onset: 5 12-15-2024 Chronic Other liver diseases (1 source) Liver cyst; Translations: [Other specified diseases of liver] 03-15-2025 Chronic Other nervous system disorders (20 sources) Postoperative pain ; Translations: [Other chronic postprocedural pain] Onset: 4 02-03-2014 Chronic Other nervous system disorders (1 source) Chronic pain; Translations: [Other chronic pain] Chronic Other nervous system disorders (1 source) Other chronic pain; Translations: [Chronic cervical pain] Onset: Chronic Other nutritional; endocrine; and metabolic disorders (20 sources) Metabolic syndrome X; Translations: [Metabolic syndrome] Onset: 5 07-17-2015 Chronic Other nutritional; endocrine; and metabolic disorders (15 sources) Obesity; Translations: [Obesity, unspecified] 01-06-2023 Chronic Other nutritional; endocrine; and metabolic disorders (1 source) Obesity, unspecified; Translations: [Obesity, unspecified] 01-06-2023 Chronic Other nutritional; endocrine; and metabolic disorders (1 source) Other obesity due to excess calories; Translations: [Other obesity due to excess calories] Onset: 5 Chronic Other nutritional; endocrine; and metabolic disorders (1 source) Body mass index (BMI) 31.0-31.9, adult; Translations: [Body mass index [BMI] 31.0-31.9, adult] Onset: 5 Chronic Other nutritional; endocrine; and metabolic disorders (7 sources) Overweight; Translations: [Overweight] 06-25-2023 Episodic Other nutritional; endocrine; and metabolic disorders (3 sources) Overweight; Translations: [Overweight] 06-25-2023 Episodic Other upper respiratory disease (20 sources) Allergic rhinitis; Translations: [Allergic rhinitis, unspecified] Onset: 0 05-01-2010 Chronic Other upper respiratory infections (4 sources) Sinusitis; Translations: [Chronic sinusitis, unspecified] 03-26-2024 Chronic Other upper respiratory infections (9 sources) Sore throat symptom; Translations: [Acute pharyngitis, unspecified] 03-05-2021 Episodic Pancreatic disorders (not diabetes) (1 source) Subcutaneous nodular fat necrosis in pancreatitis; Translations: [Other specified diseases of pancreas] 03-15-2025 Episodic Residual codes; unclassified (20 sources) Periodic limb movement disorder; Translations: [Periodic limb movement disorder] Onset: 0 Chronic Residual codes; unclassified (20 sources) Obstructive sleep apnea syndrome; Translations: [Obstructive sleep apnea (adult) (pediatric)] 10-21-2021 Chronic Residual codes; unclassified (20 sources) Daytime somnolence; Translations: [Other hypersomnia] Onset: 8 03-24-2018 Chronic Residual codes; unclassified (20 sources) Hypersomnia; Translations: [Hypersomnia, unspecified] Onset: 0 07-20-2020 Chronic Residual codes; unclassified (8 sources) Obstructive sleep apnea (adult) (pediatric); Translations: [Obstructive sleep apnea (adult)(pediatric)] Onset: 1 01-06-2023 Chronic Residual codes; unclassified (5 sources) H/O Spinal surgery; Translations: [Presence of other specified functional implants] 12-23-2023 Chronic Residual codes; unclassified (2 sources) Presence of other specified functional implants; Translations: [S/P insertion of spinal cord stimulator] Onset: 4 Chronic Residual codes; unclassified (2 sources) Dependence on other enabling machines and devices; Translations: [Dependence on other enabling machines and devices] Onset: 5 Chronic Residual codes; unclassified (8 sources) H/O: Disorder; Translations: [Personal history of other specified conditions] 01-06-2023 Episodic Spondylosis; intervertebral disc disorders; other back problems (20 sources) Lumbar post-laminectomy syndrome; Translations: [Postlaminectomy syndrome, not elsewhere classified] Onset: 4 02-03-2014 Chronic Unclassified (3 sources) You will need to discuss your diabetic medication with him Unclassified (1 source) Obesity, class 1; Translations: [Obesity, class 1] Onset: 5 Past or Other Problems Problem Classification Problem Date Documented Da te Episodic/Chronic Abdominal pain (16 sources) Pain in female pelvis; Translations: [Pelvic and perineal pain] Onset: 04-14-2011 Resolved: 10-22-2013 10-22-2013 Episodic Acute and unspecified renal failure (1 source) Acute kidney failure, unspecified; Translations: [Acute kidney failure, unspecified] Onset: 12-13-2024 Episodic Benign neoplasm of uterus (8 sources) Uterine leiomyoma; Translations: [Leiomyoma of uterus, unspecified] Onset: 04-14-2011 Resolved: 10-22-2013 10-22-2013 Episodic Hemorrhoids (20 sources) Internal hemorrhoids; Translations: [Other hemorrhoids] Onset: 01-07-2006 01-07-2006 Episodic Other connective tissue disease (20 sources) Muscle pain; Translations: [Myalgia and myositis, unspecified] Onset: 02-03-2014 02-03-2014 Episodic Other gastrointestinal disorders (1 source) Constipation, unspecified; Translations: [Constipation, unspecified] Onset: 11-27-2024 Episodic Other gastrointestinal disorders (1 source) Other constipation; Translations: [Other constipation] Onset: 12-05-2024 Episodic Other non-traumatic joint disorders (1 source) Pain in right hip; Translations: [Pain in right hip] Onset: 07-20-2017 Episodic Other screening for suspected conditions (not mental disorders or infectious disease) (3 sources) Abnormal finding of blood chemistry, unspecified; Translations: [Encounter for screening mammogram for malignant neoplasm of breast] Onset: 10-16-2024 Episodic Residual codes; unclassified (8 sources) Disturbance of consciousness; Translations: [Transient alteration of awareness] Onset: 01-07-2006 Resolved: 07-30-2016 07-30-2016 Episodic Spondylosis; intervertebral disc disorders; other back problems (20 sources) Neck pain; Translations: [Cervicalgia] Onset: 02-03-2014 02-03-2014 Episodic Substance-related disorders (8 sources) Tobacco user; Translations: [Nicotine dependence, unspecified, uncomplicated] Onset: 01-07-2006 Resolved: 10-14-2016 10-14-2016 Chronic Results Test Name Value Interpretation Reference Range Facility Pulmonary Visit Reporton Pulmonary Visit Report [facility] of [address] [place] [address] OFFICE VISIT Date of Service: 04/04/25 MR#: [id number] Acct: [id number] Name: JESS MEEKS Rep #: [id number] 5 : 1965 Provider: DORY Apple Age/Sex: 59/F [id number] Status: Signed Assessment and Plan Assessment and Plan (1) Obstructive sleep apnea on CPAP: Status: Chronic Plan: Discussed treatment alternatives such as oral appliance or spare device. Unfortunately, either of these choices would require a repeat sleep test. The patient is concerned about cost. She reports that the biggest factor keeping her from being compliant with PAP therapy is mask fit. She states that she has a small nose which causes the mask to dislodge easily when she sleeps on her side. She is agreeable to a Pap education visit to evaluate if there is an alternative interface that will be more comfortable. I did explain to her that PAP therapy remains gold standard and controlling obstructive sleep apnea. She will return to the office in 3 months so that I may evaluate her response to the new mask/headgear/interface and compliance. (2) Obesity: Status: Chronic Qualifiers: Obesity type: due to excess calories Obesity classification: adult class 1 (BMI 30 - 34.9) Serious obesity comorbidity presence: with serious comorbidity Body mass index: BMI 31.0-31.9 Qualified Code(s): E66.811 - Obesity, class 1; E66.09 - Other obesity due to excess calories; Z68.31 - Body mass index [BMI] 31.0-31.9, adult Plan: Complicates exam, plan, care and prognosis. Continue to encourage healthy weight loss. Orders: Orders Self Mgmnt Educ Training Today G47.33 - Obstructive sleep apnea (adult) (pediatric), Z99.89 - Dependence on other enabling machines and devices Plan Details Additional Comments: This note was generated with Fi[employer]tt dictation software. It may contain incorrect words, spelling, and punctuation that were not noted in checking the note before signing. Follow Up: 3 Months HPI HPI Comments Details: This patient presents to the office today for follow-up of her obstructive sleep apnea. She is ambulatory and currently on room air. She has not recently been seen in the ED or urgent care for any respiratory illness. She has not required any antibiotics or prednisone for any breathing problems. She denies any difficulty with shortness of breath. She denies any cough, sputum production or hemoptysis. She has not had any wheezing, chest tightness, chest pain or palpitations. She also denies any fever, chills or body aches. She admits that she has not been compliant with PAP therapy because she does not like the machine. She would like to discuss alternatives. She recalls our conversation at the last office visit with regard to a possible dental appliance. She has [employer] insurance and therefore cost is a significant concern for her. Compliance report not available. She has not used the machine in over 90 days. Intake Vital Signs 01/03/25 08:44 04/04/25 08:23 Height 5 ft 5 in 5 ft 5 in Weight: 183 lb BMI 30.4 BP 102/72 Blood Pressure Location Rt brachial Position Sitting Respiration 18 Pulse 83 Pulse Source NIBP Temp 97.2 F L Temperature Source Temporal Artery Pulse Oximetry (%) 97 Oxygen Delivery Method room air Intake Visit Reasons: 3 M FU Chief Complaint: cough, drainage, left eye redness Manager Advertising Required: No DME Vendor: Elizabeth Accompanied by: Self Is patient in pain?: No Allergies naproxen Allergy (Unknown, Verified 04/04/25 12:47) hives cat dander Allergy (Verified 04/04/25 12:47) NEEDS FOLLOW-UP pollen extracts (pollens) Allergy (Verified 04/04/25 12:47) NEEDS FOLLOW-UP bupropion (From Wellbutrin) Adverse Reaction (Unknown, Verified 04/04/25 12:47) Diarrhea cyclosporine (From Restasis) Adverse Reaction (Verified 04/04/25 12:47) eye irritation metformin Adverse Reaction (Verified 04/04/25 12:47) Diarrhea sertraline (From Zoloft) Adverse Reaction (Verified 04/04/25 12:47) Diarrhea Ejwcekt-PHI-UuQ Reductase Inhibitor Adverse Reaction (Verified 04/04/25 12:47) muscle cramps Medications ???Medication ???Instructions ???Recorded ???Confirmed ???Type multivitamin (One Daily 1 tab PO DAILY 06/05/21 04/04/25 H istory Multivitamin tablet) lisinopril 20 mg tablet 20 mg PO DAILY 12/29/23 04/04/25 H istory ascorbic acid (vitamin C) 500 mg 500 mg PO DAILY 11/24/24 04/04/25 History capsule calcium 600 mg (as 1 cap PO DAILY 11/24/24 04/04/25 H istory carbonate)-vitamin D3 5 mcg (200 unit) capsule (Calcium 600 + D(3)) calcium carbonate (Tums Extra 600 mg PO TID PRN dyspepsia 04/04/25 History Strength Smoothies) duloxetine 60 mg capsule,delayed 60 mg (more content not included)... Normal [facility] Gastroenterology Visit Repor ton 03-15-2025 Gastroenterology Visit Report [facility] [address] [place] [address] OFFICE VISIT Date of Service: 03/15/25 MR#: [id number] Acct: [id number] Name: JESS MEEKS Rep #: [id number] 3 : 1965 Provider: Dr. Ulysses zamora MD Age/Sex: 59/F Location: [facility] [place] Status: Signed Intake Vital Signs 11/24/24 16:20 01/03/25 08:44 03/15/25 14:23 Height 5 ft 5 in 5 ft 5 in Weight: 188 lb 185 lb 6 oz BMI 31.2 BP 115/73 124/79 H Blood Pressure Location Rt brachial Lt brachial Position Sitting Sitting Respiration 18 16 Pulse 101 H 87 Pulse Source Monitor Monitor Temp 97.4 F L Pulse Oximetry (%) 95 94 Oxygen Delivery Method room air room air Intake Visit Reasons: 3 M FU Chief Complaint: cough, drainage, left eye redness Allergies naproxen Allergy (Unknown, Verified 03/15/25 14:34) hives cat dander Allergy (Verified 03/15/25 14:34) NEEDS FOLLOW-UP pollen extracts (pollens) Allergy (Verified 03/15/25 14:34) NEEDS FOLLOW-UP bupropion (From Wellbutrin) Adverse Reaction (Unknown, Verified 03/15/25 14:34) Diarrhea cyclosporine (From Restasis) Adverse Reaction (Verified 03/15/25 14:34) eye irritation metformin Adverse Reaction (Verified 03/15/25 14:34) Diarrhea sertraline (From Zoloft) Adverse Reaction (Verified 03/15/25 14:34) Diarrhea Jrhstms-KSH-WiG Reductase Inhibitor Adverse Reaction (Verified 03/15/25 14:34) muscle cramps Medications ???Medication ???Instructions ???Recorded ???Confirmed ???Type multivitamin (One Daily 1 tab PO DAILY 06/05/21 03/15/25 H istory Multivitamin tablet) ipratropium bromide 21 mcg (0.03 1 spray intranasal BID-TID PRN 03/15/25 Rx %) nasal spray allergy symptoms #30 mL lisinopril 20 mg tablet 20 mg PO DAILY 12/29/23 03/15/25 H istory ascorbic acid (vitamin C) 500 mg 500 mg PO DAILY 11/24/24 03/15/25 History capsule calcium 600 mg (as 1 cap PO DAILY 11/24/24 03/15/25 H istory carbonate)-vitamin D3 5 mcg (200 unit) capsule (Calcium 600 + D(3)) calcium carbonate (Tums Extra 600 mg PO TID PRN dyspepsia 03/15/25 History Strength Smoothies) duloxetine 60 mg capsule,delayed 60 mg PO DAILY 11/24/24 03/15/25 H istory release oxybutynin chloride 10 mg 10 mg PO DAILY 11/24/24 03/15/25 H istory tablet,extended release 24 hr zinc gluconate 50 mg tablet 50 mg PO DAILY 11/24/24 03/15/25 H istory acetaminophen 650 mg 1,300 mg PO Q12H 12/08/24 03/15/25 History tablet,extended release (Tylenol Arthritis Pain) cyclobenzaprine 10 mg tablet 10 mg PO QDAY PRN 12/08/24 5 History diclofenac sodium 75 mg 75 mg PO PRN pain 12/08/24 5 History tablet,delayed release estradiol 0.01% (0.1 mg/gram) 1 g vaginal 3XW 12/08/24 03/15/25 History vaginal cream lactobacillus combination no.4 3 3,000 mmu cells PO QDAY 12/08/24 0 03/15/25 History billion cell capsule (Probiotic) minocycline 50 mg capsule 50 mg PO 12/08/24 03/15/25 History polyethylene glycol 3350 17 17 g PO QDAY 12/08/24 03/15/25 His tory gram/dose oral powder cetirizine 10 mg capsule (Zyrtec) 10 mg PO HS allergy symptoms 11/2703/15/25 History cholecalciferol (vitamin D3) 125 125 mcg PO QDAY 12/15/24 03/15/25 History mcg (5,000 unit) capsule coenzyme Q10 100 mg capsule (Co 100 mg PO QDAY 12/15/24 03/15/25 H istory Q-10) cranberry extract 500 mg capsule 500 mg PO BID 12/15/24 03/15/25 Hi story metformin 500 mg tablet 500 mg PO BID 90 days #180 tabs 03/15/25 Rx pantoprazole 40 mg tablet,delayed 40 mg PO .breakfast 1 month #30 0 03/15/25 03/15/25 Rx release tabs rosuvastatin 5 mg tablet 10 mg PO DAILY 03/15/25 03/15/25 H istory PFSH Medical History (Updated 03/15/25 @ 16:[address] Ulysses Sotelo MD) Constipation Gall stones Leukocytosis Acute kidney injury Encounter for screening colonoscopy Pap smear for cervical cancer screening Screening mammogram for breast cancer Headache Elevated liver function tests Decreased GFR Hyperlipemia Multiple complications of diabetes mellitus Vitamin B deficiency Vitamin D deficiency ADHD (attention deficit hyperactivity disorder) Insomnia Periodic limb movement Carpal tunnel syndrome Back ache Urge incontinence Abdominal bloating Diarrhea Colon polyps Abdominal pain Anxiety Kidney disease GERD (gastroesophageal reflux disease) GI bleed CPAP (continuous positive airway pressure) dependence Former smoker Class 1 obesity with body mass index (BMI) of 33.0 to 33.9 in adult History of insomnia Obstructive sleep apnea on CPAP Acne rosacea PTSD (post-traumatic stress disorder) Depression Degenerative disc disease Chronic neck and back pain Limb weakness Hay fever Fatigue Diabetes Shoulder pain Hemor (more content not included)... Normal [facility] L3300.8200on 02-01-2025 VITAMIN B6 54.0 ug/L Normal 3.4-65.2 [facility] Comment on above: Order Comment: Order Date: 01/26/25 Order Info: [id number] - A1C Result Comment: Defi ciency: <3.4 Marginal: 3.4 - 5.1 Adequate: >5.1 Performed By: #### L 501.5200, L500.4100, L100.0100, L500.4050, L501.9520, L501.9985 #### [facility] [address] [place], [address] Vitamin B1, Thiamineon 02-01 VIT B1 THIAMINE 168.6 nmol/L Normal 66.5-200.0 [facility] Comment on above: Order Comment: Order Date: 01/26/25 Order Info: [id number] - A1C Result Comment: Perf ormed at: [facility] - [facility] [id number] Physical Therapy Manager: Purvi Sharma MD, Phone: [phone] Performed By: #### L 501.5200, L500.4100, L100.0100, L500.4050, L501.9520, L501.9985 #### [facility] [address] [place], [address] Absolute lymphocyte countOrd ered By: Yung Valenzuela on 01-26-2025 Lymphocytes Auto (Unsp spec) [#/Vol] 2.88 10*3/uL 0.83-4.51 [facility] Absolute neutrophil countOrd ered By: Yung Valenzuela on 01-26-2025 Neutrophils (Bld) [#/Vol] 5.1 10*3/uL 2.0-7.7 [facility] Albumin DL <= 20 mg/L (U) [M ass/Vol]Ordered By: Yung Valenzuela on 01-26-2025 Urine Random Microalbumin 17.0 mg/L NO RANGE EST. [facility] Anion gap in Serum or Plasma Ordered By: Yung Valenzuela on 01-26-2025 Anion gap [Moles/Vol] 14 mmol/L 5-15 [facility] Automated lymphocyte count a s percentage of total leukocytesOrdered By: Yung Valenzuela on 01-26-2025 Lymphocytes/100 WBC Auto (Unsp spec) 32.0 % 19-41 [facility] BUN/creatinine ratioOrdered By: Yung Valenzuela on 01-26-2025 Urea nitrogen/Creatinine [Mass ratio] 18.5 mg/mg 10-20 [facility] Bacteria LM.HPF (Urine sed) [#/Area]Ordered By: Yung Valenzuela on 01-26-2025 Urine Bacteria RARE /hpf None Seen [facility] Basophil percentageOrdered B y: Yung Valenzuela on 01-26-2025 Basophils/100 WBC (Bld) 0.6 % 0-1 [facility] Bilirubin Test strip Ql (U)O rdered By: Yung Valenzuela on 01-26-2025 Bilirubin Ql (U) Negative Negative [facility] Bilirubin, totalOrdered By: Yung Valenzuela on 01-26-2025 Bilirubin [Mass/Vol] 0.32 mg/dL 0.00-1.30 [facility] CBC W/Diff, Automatedon Absolute Lymph 2.88 X10 3/uL Normal 0.83-4.51 [facility] Comment on above: Order Comment: Order Date: 01/26/25 Order Info: [id number] - CBCD Performed By: #### L 501.5200, L500.4100, L100.0100, L500.4050, L501.9520, L501.9985 #### [facility] [address] [place], [address] Absolute Neut 5.1 X10 3/uL Normal 2.0-7.7 [facility] Comment on above: Order Comment: Order Date: 01/26/25 Order Info: [id number] - CBCD Performed By: #### L 501.5200, L500.4100, L100.0100, L500.4050, L501.9520, L501.9985 #### [facility] [address] [facility] [place], [address] Basophils/100 WBC (Bld) 0.6 % Normal 0-1 [facility] Comment on above: Order Comment: Order Date: 01/26/25 Order Info: [id number] - CBCD Performed By: #### L 501.5200, L500.4100, L100.0100, L500.4050, L501.9520, L501.9985 #### [facility] [address] [facility] [place], [address] Eosinophils/100 WBC (Bld) 3.4 % Normal 0-5 [facility] Comment on above: Order Comment: Order Date: 01/26/25 Order Info: [id number] - CBCD Performed By: #### L 501.5200, L500.4100, L100.0100, L500.4050, L501.9520, L501.9985 #### [facility] [address] [facility] [place], [address] Erythrocyte distribution width (RBC) [Ratio] 13.2 % Normal 11.6-14.6 [facility] Comment on above: Order Comment: Order Date: 01/26/25 Order Info: [id number] - CBCD Performed By: #### L 501.5200, L500.4100, L100.0100, L500.4050, L501.9520, L501.9985 #### [facility] [address] [place], [address] Hematocrit (Bld) [Volume fraction] 42.0 % Normal 37-47 [facility] Comment on above: Order Comment: Order Date: 01/26/25 Order Info: [id number] - CBCD Performed By: #### L 501.5200, L500.4100, L100.0100, L500.4050, L501.9520, L501.9985 #### [facility] [address] [place], [address] Hemoglobin (Bld) [Mass/Vol] 13.7 g/dL Normal 12.0-15.0 [facility] Comment on above: Order Comment: Order Date: 01/26/25 Order Info: [id number] - CBCD Performed By: #### L 501.5200, L500.4100, L100.0100, L500.4050, L501.9520, L501.9985 #### [facility] [address] [place], [address] IG% 0.400 Normal 0.0-0.9 [facility] Comment on above: Order Comment: Order Date: 01/26/25 Order Info: [id number] - CBCD Result Comment: IG% - Immature Granulocytes (promyelocytes, myelocytes and metamyelocytes) > 1% indicates that a LEFT SHIFT is Present. Performed By: #### L 501.5200, L500.4100, L100.0100, L500.4050, L501.9520, L501.9985 #### [facility] [address] [place], [address] Lymphocytes/100 WBC (Bld) 32.0 % Normal 19-41 [facility] Comment on above: Order Comment: Order Date: 01/26/25 Order Info: 0184-1 - CBCD Performed By: #### L 501.5200, L500.4100, L100.0100, L500.4050, L501.9520, L501.9985 #### [facility] [address] [place], [address] MCH (RBC) [Entitic mass] 27.7 pg Normal 27.0-32.0 [facility] Comment on above: Order Comment: Order Date: 01/26/25 Order Info: 0184-1 - CBCD Performed By: #### L 501.5200, L500.4100, L100.0100, L500.4050, L501.9520, L501.9985 #### [facility] [address] [place], [address] MCHC (RBC) [Mass/Vol] 32.6 g/dL Normal 32-36 [facility] Comment on above: Order Comment: Order Date: 01/26/25 Order Info: [id number] - CBCD Performed By: #### L 501.5200, L500.4100, L100.0100, L500.4050, L501.9520, L501.9985 #### [facility] [address] [facility] [place], [address] MCV (RBC) [Entitic vol] 85.0 fL Normal 81-99 [facility] Comment on above: Order Comment: Order Date: 01/26/25 Order Info: 0184-1 - CBCD Performed By: #### L 501.5200, L500.4100, L100.0100, L500.4050, L501.9520, L501.9985 #### [facility] [address] [facility] [place], [address] Monocytes/100 WBC (Bld) 7.2 % Normal 0-10 [facility] Comment on above: Order Comment: Order Date: 01/26/25 Order Info: 0184-1 - CBCD Performed By: #### L 501.5200, L500.4100, L100.0100, L500.4050, L501.9520, L501.9985 #### [facility] [address] [place], [address] Neutrophils/100 WBC (Bld) 56.4 % Normal 47-70 [facility] Comment on above: Order Comment: Order Date: 01/26/25 Order Info: 0184-1 - CBCD Performed By: #### L 501.5200, L500.4100, L100.0100, L500.4050, L501.9520, L501.9985 #### [facility] [address] [place], [address] Nucleated RBC (Bld) [#/Vol] 0 10*3/uL Normal 0-5 [facility] Comment on above: Order Comment: Order Date: 01/26/25 Order Info: [id number] - CBCD Performed By: #### L 501.5200, L500.4100, L100.0100, L500.4050, L501.9520, L501.9985 #### [facility] [address] [place], [address] Platelet mean volume (Bld) [Entitic vol] 10.9 fL Normal 6.2-12.0 [facility] Comment on above: Order Comment: Order Date: 01/26/25 Order Info: [id number] - CBCD Performed By: #### L 501.5200, L500.4100, L100.0100, L500.4050, L501.9520, L501.9985 #### [facility] [address] [place], [address] Platelets (Bld) [#/Vol] 308 10*3/uL Normal 150-450 [facility] Comment on above: Order Comment: Order Date: 01/26/25 Order Info: [id number] - CBCD Performed By: #### L 501.5200, L500.4100, L100.0100, L500.4050, L501.9520, L501.9985 #### [facility] [address] [place], [place], [id number] RBC (Bld) [#/Vol] 4.94 10*6/uL Normal 4.2-5.4 [facility] Comment on above: Order Comment: Order Date: 01/26/25 Order Info: 0184-1 - CBCD Performed By: #### L 501.5200, L500.4100, L100.0100, L500.4050, L501.9520, L501.9985 #### [facility] [address] [place], [address] RDW SD 40.8 fl Normal 35.1-43.9 [facility] Comment on above: Order Comment: Order Date: 01/26/25 Order Info: 0184-1 - CBCD Performed By: #### L 501.5200, L500.4100, L100.0100, L500.4050, L501.9520, L501.9985 #### [facility] [address] [place], [place], [id number] WBC (Bld) [#/Vol] 9.0 10*3/uL Normal 4.4-11.0 [facility] Comment on above: Order Comment: Order Date: 01/26/25 Order Info: [id number] - CBCD Performed By: #### L 501.5200, L500.4100, L100.0100, L500.4050, L501.9520, L501.9985 #### [facility] [address] [place], [address] Calculated very low density lipoprotein (VLDL) cholesterol measurementOrdered By: Yung Valenzuela on 01-26-2025 Calculated very low density lipoprotein (VLDL) cholesterol measurement 48 mg/dL High 5-40 [facility] VLDL Cholesterol 48 mg/dL High 5-40 [facility] Carbon dioxide, total [Moles /volume] in Central venous bloodOrdered By: Yung Valenzuela on 01-26-2025 CO2 [Moles/Vol] 21.4 mmol/L 21.0-32.0 [facility] Chloride assayOrdered By: Samantha Valenzuela on 01-26-2025 Chloride [Moles/Vol] 102 mmol/L 98-108 [facility] Comprehensive Metabolic Prof ilon 01-26-2025 Albumin [Mass/Vol] 4.6 g/dL Normal 3.4-4.8 [facility] Comment on above: Order Comment: Order Date: 01/26/25 Order Info: [id number] - CMP Order Info: [id number] - LIPID Order Info: [id number] - MG Order Info: 3 - TSH Performed By: #### L 501.5200, L500.4100, L100.0100, L500.4050, L501.9520, L501.9985 #### [facility] [address] [place], [place], [address] Albumin/Globulin [Mass ratio] 1.5 {ratio} Normal 0.9-2.4 [facility] Comment on above: Order Comment: Order Date: 01/26/25 Order Info: [id number]- - CMP Order Info: [id number] - LIPID Order Info: [id number] - MG Order Info: [id number] - TSH Performed By: #### L 501.5200, L500.4100, L100.0100, L500.4050, L501.9520, L501.9985 #### [facility] [address] [place], [place], [id number] ALK PHOS 88 U/L Normal 35-104 [facility] Comment on above: Order Comment: Order Date: 01/26/25 Order Info: [id number] - CMP Order Info: [id number] - LIPID Order Info: [id number] - MG Order Info: [id number] - TSH Performed By: #### L 501.5200, L500.4100, L100.0100, L500.4050, L501.9520, L501.9985 #### [facility] [address] [place], [address] ALT [Catalytic activity/Vol] 33 U/L Normal <=34 [facility] Comment on above: Order Comment: Order Date: 01/26/25 Order Info: [id number] - CMP Order Info: [id number] - LIPID Order Info: [id number] - MG Order Info: [id number] - TSH Performed By: #### L 501.5200, L500.4100, L100.0100, L500.4050, L501.9520, L501.9985 #### [facility] [address] [place], [address] AST [Catalytic activity/Vol] 37 U/L High <=31 [facility] Comment on above: Order Comment: Order Date: 01/26/25 Order Info: 86-1 - CMP Order Info: [id number] - LIPID Order Info: [id number] - MG Order Info: [id number] - TSH Performed By: #### L 501.5200, L500.4100, L100.0100, L500.4050, L501.9520, L501.9985 #### [facility] [address] [place], [address] Bilirubin [Mass/Vol] 0.32 mg/dL Normal 0.00-1.30 [facility] Comment on above: Order Comment: Order Date: 01/26/25 Order Info: [id number] - CMP Order Info: [id number] - LIPID Order Info: [id number] - MG Order Info: [id number] - TSH Performed By: #### L 501.5200, L500.4100, L100.0100, L500.4050, L501.9520, L501.9985 #### [facility] [address] [place], [address] BUN/CRE 18.5 RATIO Normal 10-20 [facility] Comment on above: Order Comment: Order Date: 01/26/25 Order Info: [id number] - CMP Order Info: [id number] - LIPID Order Info: [id number] - MG Order Info: [id number] - TSH Performed By: #### L 501.5200, L500.4100, L100.0100, L500.4050, L501.9520, L501.9985 #### [facility] [address] [place], [address] Calcium [Mass/Vol] 10.2 mg/dL Normal 7.6-11.0 [facility] Comment on above: Order Comment: Order Date: 01/26/25 Order Info: 07-1 - CMP Order Info: [id number] - LIPID Order Info: [id number] - MG Order Info: 3 - TSH Performed By: #### L 501.5200, L500.4100, L100.0100, L500.4050, L501.9520, L501.9985 #### [facility] [address] [place], [address] Chloride [Moles/Vol] 102 mmol/L Normal 98-108 [facility] Comment on above: Order Comment: Order Date: 01/26/25 Order Info: [id number] - CMP Order Info: [id number] - LIPID Order Info: [id number] - MG Order Info: 3 - TSH Performed By: #### L 501.5200, L500.4100, L100.0100, L500.4050, L501.9520, L501.9985 #### [facility] [address] [place], [address] CO2 [Moles/Vol] 21.4 mmol/L Normal 21.0-32.0 [facility] Comment on above: Order Comment: Order Date: 01/26/25 Order Info: [id number] - CMP Order Info: [id number] - LIPID Order Info: [id number] - MG Order Info: [id number] - TSH Performed By: #### L 501.5200, L500.4100, L100.0100, L500.4050, L501.9520, L501.9985 #### [facility] [address] [place], [address] Creatinine [Mass/Vol] 0.72 mg/dL Normal 0.70-1.20 [facility] Comment on above: Order Comment: Order Date: 01/26/25 Order Info: [id number] - CMP Order Info: [id number] - LIPID Order Info: [id number] - MG Order Info: 301-3 - TSH Performed By: #### L 501.5200, L500.4100, L100.0100, L500.4050, L501.9520, L501.9985 #### [facility] [address] [place], [place], [address] GAP 14 Normal 5-15 [facility] Comment on above: Order Comment: Order Date: 01/26/25 Order Info: 07-1 - CMP Order Info: [id number] - LIPID Order Info: [id number] - MG Order Info: [id number] - TSH Performed By: #### L 501.5200, L500.4100, L100.0100, L500.4050, L501.9520, L501.9985 #### [facility] [address] [place], [place], [address] GFR/1.73 sq M.predicted among non-blacks MDRD (S/P/Bld) [Vol rate/Area] 95 mL/min/{1.73_m2} Normal >60 [facility] Comment on above: Order Comment: Order Date: 01/26/25 Order Info: [id number] - CMP Order Info: [id number] - LIPID Order Info: [id number] - MG Order Info: [id number] - TSH Result Comment: mL/m in/1.73m2 CKD-EPI Creatinine Equation (2020) Performed By: #### L 501.5200, L500.4100, L100.0100, L500.4050, L501.9520, L501.9985 #### [facility] [address] [place], [address] Globulin (S) [Mass/Vol] 3.0 g/dL Normal 2.2-4.2 [facility] Comment on above: Order Comment: Order Date: 01/26/25 Order Info: [id number] - CMP Order Info: [id number] - LIPID Order Info: [id number] - MG Order Info: [id number] - TSH Performed By: #### L 501.5200, L500.4100, L100.0100, L500.4050, L501.9520, L501.9985 #### [facility] [address] [place], [address] Glucose [Mass/Vol] 111 mg/dL High 70-99 [facility] Comment on above: Order Comment: Order Date: 01/26/25 Order Info: [id number] - CMP Order Info: [id number] - LIPID Order Info: [id number] - MG Order Info: [id number] - TSH Performed By: #### L 501.5200, L500.4100, L100.0100, L500.4050, L501.9520, L501.9985 #### [facility] [address] [place], [address] Potassium [Moles/Vol] 4.3 mmol/L Normal 3.3-5.1 [facility] Comment on above: Order Comment: Order Date: 01/26/25 Order Info: [id number] - CMP Order Info: [id number] - LIPID Order Info: [id number] - MG Order Info: [id number] - TSH Performed By: #### L 501.5200, L500.4100, L100.0100, L500.4050, L501.9520, L501.9985 #### [facility] [address] [place], [address] Sodium [Moles/Vol] 137 mmol/L Normal 133-145 [facility] Comment on above: Order Comment: Order Date: 01/26/25 Order Info: [id number] - CMP Order Info: [id number] - LIPID Order Info: [id number] - MG Order Info: [id number] - TSH Performed By: #### L 501.5200, L500.4100, L100.0100, L500.4050, L501.9520, L501.9985 #### [facility] [address] [place], [place], [address] T PROT 7.6 g/dL Normal 5.9-8.4 [facility] Comment on above: Order Comment: Order Date: 01/26/25 Order Info: [id number] - CMP Order Info: [id number] - LIPID Order Info: [id number] - MG Order Info: 3 - TSH Performed By: #### L 501.5200, L500.4100, L100.0100, L500.4050, L501.9520, L501.9985 #### [facility] [address] [place], [place], [address] Urea nitrogen [Mass/Vol] 13 mg/dL Normal 4-19 [facility] Comment on above: Order Comment: Order Date: 01/26/25 Order Info: [id number] - CMP Order Info: [id number] - LIPID Order Info: [id number] - MG Order Info: [id number] - TSH Performed By: #### L 501.5200, L500.4100, L100.0100, L500.4050, L501.9520, L501.9985 #### [facility] [address] [place], [place], [address] Creatinine Unsp time (U) [Ma ss/Vol]Ordered By: Yung Valenzuela on 01-26-2025 Creatinine (U) [Mass/Vol] 36.10 mg/dL 28.00-217. 00 [facility] Eosinophil percentageOrdered By: Yung Valenzuela on 01-26-2025 Eosinophils/100 WBC (Bld) 3.4 % 0-5 [facility] Epithelial cells.squamous LM Ql (Urine sed)Ordered By: Yung Valenzuela on 01-26-2025 Epithelial cells.squamous LM.HPF (Urine sed) [#/Area] 0 /[HPF] 5-10 [facility] Erythrocyte distribution wid th (RBC) [Ratio]Ordered By: Yung Valenzuela on 01-26-2025 Erythrocyte distribution width (RBC) [Entitic vol] 40.8 fL 35.1-43.9 [facility] Erythrocyte distribution wid th ratioOrdered By: Yung Valenzuela on 01-26-2025 Erythrocyte distribution width (RBC) [Ratio] 13.2 % 11.6-14.6 [facility] Erythrocyte distribution wid th standard deviationOrdered By: Yung Valenzuela on 01-26-2025 Erythrocyte distribution width (RBC) [Ratio] 40.8 fl 35.1-43.9 [facility] GFR/1.73 sq M.predicted tyler g non-blacks MDRD (S/P/Bld) [Vol rate/Area]Ordered By: Yung Valenzuela on 01-26-2025 Estimated GFR (MDRD) Non-Af Amer 95 >60 [facility] Comment on above: mL/min/1.73m2 CKD-EP I Creatinine Equation (2020) Glomerular filtration rate ( GFR) estimation/1.73 sq m using serum, plasma, or whole bOrdered By: Yung Valenzuela on 01-26-2025 GFR/1.73 sq M.predicted among non-blacks MDRD (S/P/Bld) [Vol rate/Area] 95 mL/min/{1.73_m2} >60 [facility] Comment on above: mL/min/1.73m2 CKD-EP I Creatinine Equation (2020) Glucose Ql (U)Ordered By: Samantha Valenzuela on 01-26-2025 Urine Glucose (UA) Normal mg/dl Normal [facility] Hematocrit Auto (Bld) [Volum e fraction]Ordered By: Yung Valenzuela on 01-26-2025 Hematocrit (Bld) [Volume fraction] 42.0 % 37-47 [facility] Hemoglobin A1con 01-26-2025 HbA1c (Bld) [Mass fraction] 6.6 % Normal <=5.6 [facility] Comment on above: Order Comment: Order Date: 01/26/25 Order Info: [id number] - A1C Performed By: #### L 501.5200, L500.4100, L100.0100, L500.4050, L501.9520, L501.9974 #### [facility] [address] [place], [address] Hemoglobin A1c percentageOrd ered By: Yung Valenzuela on 01-26-2025 HbA1c (Bld) [Mass fraction] 6.6 % >5.7 [facility] Hemoglobin measurementOrdere d By: Yung Valenzuela on 01-26-2025 Hemoglobin (Bld) [Mass/Vol] 13.7 g/dL 12.0-15.0 [facility] Immature granulocytes/100 WB C Auto (Bld)Ordered By: Yung Valenzuela on 01-26-2025 Immature granulocytes/100 WBC (Bld) 0.400 % 0.0-0.9 [facility] Comment on above: IG% - Immature Granu locytes (promyelocytes, myelocytes and metamyelocytes) > 1% indicates that a LEFT SHIFT is Present. Ketones Test strip Ql (U)Ord ered By: Ynug Valenzuela on 01-26-2025 Ketones Ql (U) Negative Negative [facility] LDL calc ser/plasOrdered By: Yung Valenzuela on 01-26-2025 Cholesterol in LDL [Mass/Vol] 104 mg/dL [facility] Comment on above: Tlwqatromm=993-465 m g/dL & Higher Oojk=364 mg/dL or greater LDL Cholesterol, Calculated 104 mg/dL [facility] Comment on above: Rsxfsjozat=516-626 m g/dL & Higher Qext=786 mg/dL or greater Laboratory - Chemistry and C hemistry - challengeOrdered By: Yung Valenzuela on 01-26-2025 AST [Catalytic activity/Vol] 37 U/L High <32 [facility] Lipid Profileon 01-26-2025 CHOL:HDL 4.47 Normal [facility] Comment on above: Order Comment: Order Date: 01/26/25 Order Info: [id number] - CMP Order Info: [id number] - LIPID Order Info: [id number] - MG Order Info: [id number] - TSH Performed By: #### L 501.5200, L500.4100, L100.0100, L500.4050, L501.9520, L501.9985 #### [facility] [address] [place], [address] Cholesterol [Mass/Vol] 196 mg/dL Normal <=200 [facility] Comment on above: Order Comment: Order Date: 01/26/25 Order Info: [id number] - CMP Order Info: [id number] - LIPID Order Info: [id number] - MG Order Info: [id number] - TSH Result Comment: Chol esterol level, Desirable <200 mg/dL Borderline high cholesterol 200-239 mg/dL High cholesterol >=240 mg/dL Recommendations of the NCEP Adult Treatment Panel for the following risk-cutoff thresholds for the [place] population. Performed By: #### L 501.5200, L500.4100, L100.0100, L500.4050, L501.9520, L501.9985 #### [facility] [address] [place], [address] Cholesterol in HDL [Mass/Vol] 44 mg/dL Normal [facility] Comment on above: Order Comment: Order Date: 01/26/25 Order Info: [id number] - CMP Order Info: [id number] - LIPID Order Info: [id number] - MG Order Info: [id number] - TSH Result Comment: [place]ettina onal Cholesterol Education Program (NCEP) guidelines: <40 mg/dL: Low HDL-cholesterol (major risk factor for CHD) >= 60 mg/dL: High HDL-cholesterol (negative risk factor for CHD) HDL-cholesterol is affected by a number of factors, e.g. smoking, exercise, hormones, sex and age. Performed By: #### L 501.5200, L500.4100, L100.0100, L500.4050, L501.9520, L501.9985 #### [facility] [address] [place], [address] Cholesterol in LDL [Mass/Vol] 104 mg/dL Normal [facility] Comment on above: Order Comment: Order Date: 01/26/25 Order Info: [id number] - CMP Order Info: [id number] - LIPID Order Info: [id number] - MG Order Info: [id number] - TSH Result Comment: Bord tkjvdd=276-970 mg/dL Higher Suop=128 mg/dL or greater Performed By: #### L 501.5200, L500.4100, L100.0100, L500.4050, L501.9520, L501.9985 #### [facility] [address] [place], [address] Cholesterol in VLDL [Mass/Vol] 48 mg/dL High 5-40 [facility] Comment on above: Order Comment: Order Date: 01/26/25 Order Info: 07 - CMP Order Info: - LIPID Order Info: [id number] - MG Order Info: 3 - TSH Performed By: #### L 501.5200, L500.4100, L100.0100, L500.4050, L501.9520, L501.9985 #### [facility] [address] [place], [address] Triglyceride [Mass/Vol] 241 mg/dL High [facility] Comment on above: Order Comment: Order Date: 01/26/25 Order Info: [id number] - CMP Order Info: [id number] - LIPID Order Info: [id number] - MG Order Info: [id number] - TSH Result Comment: The drugs N-Acetylcysteine and Metamizole may falsely depress this assay. Normal range: <150 mg/dL Borderline High: 150-199 mg/dL High: 200-499 mg/dL Very High: >500 mg/dL Performed By: #### L 501.5200, L500.4100, L100.0100, L500.4050, L501.9520, L501.9985 #### [facility] [address] [place], [address] Lymphocytes Auto (Unsp spec) [#/Vol]Ordered By: Yung Valenzuela on 01-26-2025 Lymphocytes (Bld) [#/Vol] 2.88 10*3/uL 0.83-4.51 [facility] Lymphocytes/100 WBC Auto (Un sp spec)Ordered By: Yung Valenzuela on 01-26-2025 Lymphocytes/100 WBC (Bld) 32.0 % 19-41 [facility] MCV (mean corpuscular volume ) determinationOrdered By: Yung Valenzuela on 01-26-2025 MCV (RBC) [Entitic vol] 85.0 fL 81-99 [facility] Magnesiumon 01-26-2025 Magnesium [Mass/Vol] 1.9 mg/dL Normal 1.5-2.2 [facility] Comment on above: Order Comment: Order Date: 01/26/25 Order Info: [id number] - CMP Order Info: [id number] - LIPID Order Info: [id number] - MG Order Info: [id number] - TSH Performed By: #### L 501.5200, L500.4100, L100.0100, L500.4050, L501.9520, L501.9985 #### [facility] [address] [place] [address]. [place], [address] Magnesium (Unsp spec) [Mass/ Vol]Ordered By: Yung Valenzuela on 01-26-2025 Magnesium [Mass/Vol] 1.9 mg/dL 1.5-2.2 [facility] Magnesium measurement (mass/ volume)Ordered By: Yung Valenzuela on 01-26-2025 Magnesium (Unsp spec) [Mass/Vol] 1.9 mg/dL 1.5-2.2 [facility] Mean corpuscular hemoglobin (MCH) determinationOrdered By: Yung Valenzuela on 01-26-2025 MCH (RBC) [Entitic mass] 27.7 pg 27.0-32.0 [facility] Mean corpuscular hemoglobin concentration (MCHC) determinationOrdered By: Yung Valenzuela on 01-26-2025 MCHC (RBC) [Mass/Vol] 32.6 g/dL 32-36 [facility] Mean platelet volume determi nationOrdered By: Yung Valenzuela on 01-26-2025 Platelet mean volume (Bld) [Entitic vol] 10.9 fL 6.2-12.0 [facility] Microalb:Creat Ratio,Random URon 01-26-2025 Creatinine [Mass/Vol] 36.10 mg/dL Normal 28.00- 217. 00 [facility] Comment on above: Order Comment: Order Date: 01/26/25Order Info: [id number] - MIALB Performed By: #### L 501.080 #### [facility] [address] [place], [address] MALB:CREAT 470.9 mg/g CRE Normal [facility] Comment on above: Order Comment: Order Date: 01/26/25Order Info: [id number] - MIALB Performed By: #### L 501.080 #### [facility] [address] [place], [address] MICROALBUMIN,UR 17.0 mg/L Normal NO RANGE EST. [facility] Comment on above: Order Comment: Order Date: 01/26/25Order Info: [id number] - MIALB Performed By: #### L 501.080 #### [facility] [address] [place], [address] Microalbumin/creat ratio urO rdered By: Yung Valenzuela on 01-26-2025 Urine Microalbumin/Creatinine Ratio 470.9 mg/g CRE [facility] Microscopic analysis of urin e for red blood cells (RBC)Ordered By: Yung Valenzuela on 01-26-2025 Microscopic analysis of urine for red blood cells (RBC) 0-5 SEEN /hpf 0-5 [facility] Urine RBC 0-5 SEEN /hpf 0-5 [facility] Monocyte percentageOrdered B y: Yung Valenzuela on 01-26-2025 Monocytes/100 WBC (Bld) 7.2 % 0-10 [facility] Mucus LM Ql (Urine sed)Order ed By: Yung Valenzuela on 01-26-2025 Mucus Ql (Urine sed) 0 SEEN /hpf [facility] Neutrophil percentageOrdered By: Yung Valenzuela on 01-26-2025 Neutrophils/100 WBC (Bld) 56.4 % 47-70 [facility] Nitrite Test strip Ql (U)Ord ered By: Yung Valenzuela on 01-26-2025 Nitrite Ql (U) Negative Negative [facility] Nucleated red blood cell per centageOrdered By: Yung Valenzuela on 01-26-2025 Nucleated RBC/100 WBC (Bld) [Ratio] 0 % 0-5 [facility] Platelet countOrdered By: Samantha Valenzuela on 01-26-2025 Platelets (Bld) [#/Vol] 308 10*3/uL 150-450 [facility] Potassium (Unsp spec) [Mass/ Vol]Ordered By: Yung Valenzuela on 01-26-2025 Potassium [Moles/Vol] 4.3 mmol/L 3.3-5.1 [facility] Potassium measurement (mass/ volume)Ordered By: Yung Valenzuela on 01-26-2025 Potassium (Unsp spec) [Mass/Vol] 4.3 mmol/L 3.3-5.1 [facility] Protein Test strip Ql (U)Ord ered By: Yung Valenzuela on 01-26-2025 Protein Ql (U) Negative Negative [facility] RBC Auto (Bld) [#/Vol]Ordere d By: Yung Valenzuela on 01-26-2025 RBC (Bld) [#/Vol] 4.94 10*6/uL 4.2-5.4 [facility] Random urine creatinine jethro urement (mass/volume)Ordered By: Yung Valenzuela on 01-26-2025 Creatinine Unsp time (U) [Mass/Vol] 36.10 mg/dL 28.00-217. 00 [facility] Screening total cholesterol/ high density lipoprotein (HDL) cholesterol ratioOrdered By: Yung Valenzuela on 01-26-2025 Cholesterol.total/Choles terol in HDL [Mass ratio] 4.47 {ratio} [facility] Serum creatinine measurement (mass/volume)Ordered By: Yung Valenzuela on 01-26-2025 Creatinine [Mass/Vol] 0.72 mg/dL 0.70-1.20 [facility] Serum globulin measurementOr dered By: Yung Valenzuela on 01-26-2025 Globulin (S) [Mass/Vol] 3.0 g/dL 2.2-4.2 [facility] Serum glucose measurement (m ass/volume)Ordered By: Yung Valenzuela on 01-26-2025 Glucose [Mass/Vol] 111 mg/dL High 70-99 [facility] Serum or plasma alanine sutherland otransferase (ALT) measurementOrdered By: Yung Valenzuela on 01-26-2025 ALT [Catalytic activity/Vol] 33 U/L <35 [facility] Serum or plasma albumin jethro urement (mass/volume)Ordered By: Yung Valenzuela on 01-26-2025 Albumin [Mass/Vol] 4.6 g/dL 3.4-4.8 [facility] Serum or plasma albumin/glob ulin mass ratioOrdered By: Yung Valenzuela on 01-26-2025 Albumin/Globulin [Mass ratio] 1.5 {ratio} 0.9-2.4 [facility] Serum or plasma alkaline wilver sphatase measurementOrdered By: Yung Valenzuela on 01-26-2025 ALP [Catalytic activity/Vol] 88 U/L 35-104 [facility] Serum or plasma calcium jethro urement (mass/volume)Ordered By: Yung Valenzuela on 01-26-2025 Calcium [Mass/Vol] 10.2 mg/dL 7.6-11.0 [facility] Serum or plasma cholesterol in HDL measurement (mass/volume)Ordered By: Yung Valenzuela on 01-26-2025 Cholesterol in HDL [Mass/Vol] 44 mg/dL >40 [facility] Comment on above: National Cholesterol Education Program (NCEP) guidelines:<40 mg/dL: Low HDL-cholesterol (major risk factor for CHD)>= 60 mg/dL: High HDL-cholesterol (negative risk factor for CHD)HDL-cholesterol is affected by a number of factors, e.g. smoking, exercise, hormones, sex and age. Serum or plasma cholesterol measurement (mass/volume)Ordered By: Yung Valenzuela on 01-26-2025 Cholesterol [Mass/Vol] 196 mg/dL <201 [facility] Comment on above: Cholesterol level, D esirable <200 mg/dLBorderline high cholesterol 200-239 mg/dLHigh cholesterol >=240 mg/dLRecommendations of the NCEP Adult Treatment Panel for the following risk-cutoff thresholds for the [place] population. Serum or plasma thiamine rima surement (mass/volume)Ordered By: Yung Valenzuela on 01-26-2025 Thiamine [Mass/Vol] 168.6 nmol/L 66.5-200.0 [facility] Comment on above: Performed at: [address] [id number] Director: Purvi Sharma MD, Phone: [phone] Serum or plasma urea nitroge n measurement (mass/volume)Ordered By: Yung Valenzuela on 01-26-2025 Urea nitrogen [Mass/Vol] 13 mg/dL 4-19 [facility] Sodium levelOrdered By: Yung Valenzuela on 01-26-2025 Sodium [Moles/Vol] 137 mmol/L 133-145 [facility] Squamous epithelial cells de tection in urine sediment by light microscopyOrdered By: Yung Valenzuela on 01-26-2025 Epithelial cells.squamous LM Ql (Urine sed) 0-5 SEEN /hpf 5-10 [facility] TSH DL <= 0.005 mIU/L QnOrde red By: Yung Valenzuela on 01-26-2025 Thyroid Stimulating Hormone (TSH) 2.100 uIU/mL 0.300-4.20 0 [facility] TSH Qn 2.100 uIU/mL 0.300-4.20 0 [facility] Thyroid Stim Hormone (TSH)on 01-26-2025 TSH 2.100 uIU/mL Normal 0.300-4.20 0 [facility] Comment on above: Order Comment: Order Date: 01/26/25 Order Info: [id number] - CMP Order Info: [id number] - LIPID Order Info: [id number] - MG Order Info: [id number] - TSH Performed By: #### L 501.5200, L500.4100, L100.0100, L500.4050, L501.9520, L501.9985 #### [facility] [address] [place] [place], [address] Total proteinOrdered By: Caleb Valenzuela on 01-26-2025 Protein [Mass/Vol] 7.6 g/dL 5.9-8.4 [facility] Transitional cells LM Ql (Ur ine sed)Ordered By: Yung Valenzuela on 01-26-2025 Urine Transitional Epithelial Cells 0-5 SEEN /hpf 0-5 [facility] Transitional cells detection in urine sediment by light microscopyOrdered By: Yung Valenzuela on 01-26-2025 Transitional cells LM Ql (Urine sed) 0-5 SEEN /hpf 0-5 [facility] Triglycerides measurementOrd ered By: Yung Valenzuela on 01-26-2025 Triglyceride [Mass/Vol] 241 mg/dL High <199 [facility] Comment on above: The drugs N-Acetylcy steine and Metamizole may falsely depress this assay. Normal range: <150 mg/dLBorderline High: 150-199 mg/dLHigh: 200-499 mg/dLVery High: >500 mg/dL Urinalysis, Completeon 01-26 BACTERIA RARE Normal None Seen [facility] Comment on above: Order Comment: CLEAN CATCH Performed By: #### L 501.080 #### [facility] [address] [place], [address] RBC 0-5 SEEN Normal 0-5 [facility] Comment on above: Order Comment: CLEAN CATCH Performed By: #### L 501.080 #### [facility] [address] [place], [address] WBC 0-5 SEEN Normal 0-5 [facility] Comment on above: Order Comment: CLEAN CATCH Performed By: #### L 501.080 #### [facility] [address] [place], [address] EPI,SQUAMOUS 0-5 SEEN Normal 5-10 [facility] Comment on above: Order Comment: CLEAN CATCH Performed By: #### L 501.080 #### [facility] [address] [place], [address] EPI,TRANSITION 0-5 SEEN Normal 0-5 [facility] Comment on above: Order Comment: CLEAN CATCH Performed By: #### L 501.080 #### [facility] [address] [place], [address] Mucus Ql (Urine sed) 0 SEEN Normal [facility] Comment on above: Order Comment: CLEAN CATCH Performed By: #### L 501.080 #### [facility] [address] [place], [address] Urine albumin measurement wi detection limit of 20 mg/L or less (mass/volume)Ordered By: Yung Valenzuela on 01-26-2025 Albumin DL <= 20 mg/L (U) [Mass/Vol] 17.0 mg/L NO RANGE EST. [facility] Urine blood detectionOrdered By: Yung Valenzuela on 01-26-2025 Urine Occult Blood Negative Negative [facility] Urine clarityOrdered By: Caleb Valenzuela on 01-26-2025 Clarity (U) Clear Clear [facility] Urine color determinationOrd ered By: Yung Valenzuela on 01-26-2025 Color (U) Yellow Yellow [facility] Urine glucose detectionOrder ed By: Yung Valenzuela on 01-26-2025 Glucose Ql (U) Normal mg/dl Normal [facility] Urine leukocyte esterase det ection by dipstickOrdered By: Yung Valenzuela on 01-26-2025 Leukocyte esterase Test strip Ql (U) 100 /ul High Negative [facility] Urine pHOrdered By: Yung mendoza on 01-26-2025 pH (U) 7.0 [pH] 5.0 - 8.0 [facility] Urine sediment bacteria coun t by microscopy (number/high power field)Ordered By: Yung Valenzuela on 01-26-2025 Bacteria LM.HPF (Urine sed) [#/Area] RARE /hpf None Seen [facility] Urine specific gravity measu rementOrdered By: Yung Valenzuela on 01-26-2025 Specific gravity (U) [Rel density] 1.005 1.002-1.03 0 [facility] Urine urobilinogen measureme ntOrdered By: Yung Valenzuela on 01-26-2025 Urobilinogen Ql (U) Normal mg/dl Normal [facility] Urobilinogen Ql (U)Ordered B y: Yung Valenzuela on 01-26-2025 Urine Urobilinogen Normal mg/dl Normal [facility] Vitamin B12on 01-26-2025 Cobalamin (Vitamin B12) [Mass/Vol] 1145 pg/mL High 180-914 [facility] Comment on above: Order Comment: Order Date: 01/26/25 Order Info: [id number] - A1C Performed By: #### L 501.5200, L500.4100, L100.0100, L500.4050, L501.9520, L501.9985 #### [facility] [address] [place], [place], [address] Vitamin B12 ser/plasOrdered By: Yung Valenzuela on 01-26-2025 Cobalamin (Vitamin B12) [Mass/Vol] 1145 pg/mL High 180-914 [facility] Vitamin D, 25-hydroxyOrdered By: Yung Valenzuela on 01-26-2025 Vitamin D 25-Hydroxy 54.1 ng/mL 30-100 [facility] Comment on above: Vitamin D StatusDefi ciency: <20 ng/mL (50nmol/L)Insufficiency: 20-30 ng/mL (50-75 nmol/L)Sufficiency: 30-100 ng/mL (75-250 nmol/L)Toxicity: >100 ng/mL (>250 nmol/L) Vitamin D,25 Hydroxyon 01-26 Vitamin D 25-OH 54.1 ng/mL Normal 30-100 [facility] Comment on above: Order Comment: Order Date: 01/26/25 Order Info: [id number] - A1C Result Comment: Clau min D Status Deficiency: <20 ng/mL (50nmol/L) Insufficiency: 20-30 ng/mL (50-75 nmol/L) Sufficiency: 30-100 ng/mL (75-250 nmol/L) Toxicity: >100 ng/mL (>250 nmol/L) Performed By: #### L 501.5200, L500.4100, L100.0100, L500.4050, L501.9520, L501.9985 #### [facility] [address] [place], [address] White blood cell (WBC) count Ordered By: Yung Valenzuela on 01-26-2025 WBC (Bld) [#/Vol] 9.0 10*3/uL 4.4-11.0 [facility] White blood cell countOrdere d By: Yung Valenzuela on 01-26-2025 Urine WBC 0-5 SEEN /hpf 0-5 [facility] White blood cell count 0-5 SEEN /hpf 0-5 [facility] Pulmonary Visit Reporton Pulmonary Visit Report [facility] [address] [place] [address] OFFICE VISIT Date of Service: 01/03/25 MR#: [id number] Acct: [id number] Name: JESS MEEKS Rep #: [id number] : 1965 Provider: DORY Apple Age/Sex: 59/F Location: [facility].PMW Status: Signed Assessment and Plan Assessment and Plan (1) Obstructive sleep apnea on CPAP: Status: Chronic Plan: Deteriorated. The patient has not been compliant for the past 2 months. The patient states that she was struggling with persistent daytime hypersomnia despite excellent compliance with PAP therapy. She was also dealing with dry mouth and poor mask fit. We discussed possibly sending her to Pap education. The patient has serious concerns about medical costs. She does have an oral appliance at home that she would like to try. She is going to adjust the oral appliance and try it over the next 3 months. She knows to watch for persistent daytime hypersomnia, needing naps, snoring, dry mouth and nocturia. The symptoms will be reviewed at her follow-up office visit. If she is noticing improvement with the use of the oral device we will proceed by performing an unattended sleep study at home with the use of the oral appliance. She has been encouraged contact the office with any new or worsening symptoms in the meantime. (2) Obesity: Status: Chronic Qualifiers: Obesity type: due to excess calories Obesity classification: adult class 1 (BMI 30 - 34.9) Serious obesity comorbidity presence: with serious comorbidity Body mass index: BMI 31.0-31.9 Qualified Code(s): E66.811 - Obesity, class 1; E66.09 - Other obesity due to excess calories; Z68.31 - Body mass index [BMI] 31.0-31.9, adult Plan: Deteriorated. Patient has been putting on a few pounds. She realizes that this is something that she needs to work on. Plan Details Follow Up: 3 Months ([facility]) HPI 1 Y FU Chief Complaint: Dry mouth HPI Comments Details: This patient presents to the office today for follow-up of her obstructive sleep apnea. She is ambulatory and currently on room air. She has not recently been seen in the ED or urgent care for any respiratory illness. She has not required any antibiotics or prednisone for any breathing problems. She denies any difficulty with shortness of breath. She denies any cough, sputum production or hemoptysis. She has not had any wheezing, chest tightness, chest pain or palpitations. She also denies any fever, chills or body aches. She reports feeling very frustrated with her Pap device. She states that the new machine is not as comfortable as the old machine. She states that she is having difficulty with dry mouth. She wakes up frequently throughout the night. She is not able to rest comfortably. She reports mask leak. She is not feeling rested when she wakes up in the morning. She does occasionally nap. She has purchased an oral appliance and has been considering using it. Compliance report for the past 90 days shows 33 % compliance with average use of 6 hours and 49 minutes per night. She has not used the AutoPap since approximately October 26. Current setting is AutoPap 5 to 18 cm of water typically utilizing 10.0-16.3 cm of water. Residual AHI of 1.4 remains, leaks do not appear to be overly problematic. Intake Vital Signs 12/29/23 05:45 03/26/24 10:30 01/03/25 08:44 Height 5 ft 5 in 5 ft 5 in 5 ft 5 in Weight: 188 lb BMI 31.2 BP 115/73 Blood Pressure Location Rt brachial Position Sitting Respiration 18 Pulse 101 H Pulse Source Monitor Temp 97.4 F L Temperature Source Temporal Artery Pulse Oximetry (%) 95 Oxygen Delivery Method room air Intake Visit Reasons: 1 Y FU Chief Complaint: cough, drainage, left eye redness Manager Advertising Required: No DME Vendor: [employer] Accompanied by: Self Allergies naproxen Allergy (Unknown, Verified 01/03/25 15:09) hives cat dander Allergy (Verified 01/03/25 15:09) NEEDS FOLLOW-UP pollen extracts (pollens) Allergy (Verified 01/03/25 15:09) NEEDS FOLLOW-UP bupropion (From Wellbutrin) Adverse Reaction (Unknown, Verified 01/03/25 15:09) Diarrhea cyclosporine (From Restasis) Adverse Reaction (Verified 01/03/25 15:09) eye irritation metformin Adverse Reaction (Verified 01/03/25 15:09) Diarrhea sertraline (From Zoloft) Adverse Reaction (Verified 01/03/25 15:09) Diarrhea [id number]-UxD Reductase Inhibitor Adverse Reaction (Verified 01/03/25 15:09) muscle cramps Medications ???Medication ???Instructions ???Recorded ???Confirmed ???Type rosuvastatin 5 mg tablet 5 mg PO DAILY 03/05/21 01/03/25 Hi story multivitamin (One Daily 1 tab PO DAILY 06/05/21 01/03/25 H istory Multivitamin tablet) ipratropium bromide 21 mcg (0.03 1 spray intranasal BID-TID PRN 01/03/25 Rx (more content not included)... Normal [facility] ABD Limited w/ Elastographyo n 12-23-2024 ABD Limited w/ Elastography [facility] Services [address] [place] [address] ABD Limited w/ Elastography MR#: [id number] Acct: [id number] Name: JESS MEEKS Rep #: [id number] : 1965 F 59 From: Rodney Greco MD PCP: Dr. Yung Valenzuela MD Status: REG CLI Study: ABD Limited w/ Elastography Date of Exam: 11/27 06/19 Exam# [id number] Ordering Dr: Jolene Gupta GREEN BELT-C PROCEDURE: ULTRASOUND ABDOMEN LIMITED WITH ELASTOGRAPHY REASON FOR EXAM: STEATOSIS. COMPARISON: CT abdomen pelvis dated 11/24/2024. TECHNIQUE: Right upper quadrant abdominal ultrasound. Real-time grayscale and color flow imaging was performed along with routine image documentation. Shear wave elastography imaging for non-invasive assessment of liver tissue stiffness. FINDINGS: LIVER: Size: Unremarkable Length: 16.6 cm sagittally. Echotexture: Hyperechoic. Contour: Normal Lesions: A 2.4 x 2.4 x 1.9 cm anechoic nodule in the left hepatic lobe. Several anechoic nodules are noted in the right hepatic lobe measuring 0.8 cm, 1.6 cm, and 2.7 cm. Blood flow: Hepatopetal. Elastography: EQI Med: 9.9 kPa EQI Med Cole: 1.81 m/s GALLBLADDER: Surgically absent. COMMON BILE DUCT: Normal 0.48 cm in diameter.. PANCREAS: Echogenic parenchyma. Hypoechoic peripancreatic nodules are demonstrated measuring 1.8 x 1.9 x 0.7 cm and 1.6 x 3.3 x 1.7 cm. Right kidney: Size measures 10.0 x 5.0 x 3.9 cm. Cortex measures 1.0 cm. US/ABD Limited w/ Elastography IMPRESSION: 1. Steatosis. 2. F 2 to F 3, moderate to severe, likelihood of significant hepatic fibrosis. 3. Status post cholecystectomy. 4. Anechoic hepatic nodules consistent with cysts. 5. Prominent peripancreatic lymph nodes are suspected. 6. Hyperechoic pancreas parenchyma may be related to fatty replacement which can be seen with advancing age. Reference Values: SRU <1.37 m/s (5.7kPa): No to mild fibrosis 1.37 m/s - 2.2 m/s: Moderate to severe fibrosis >2.2 m/s (15kPa): Significant fibrosis / cirrhosis METAVIR Score F2 or higher: 1.34 m/s (5.7kPa) F3 or higher: 1.55 m/s (7.3kPa) F4: 1.80 m/s (10kPa) Reading Location: [place] [address] CC: DORY Gupta; Dr. Yung Valenzuela MD Senior Planning Analyst: Signed Normal [facility] Absolute lymphocyte countOrd ered By: Yung Valenzuela on 12-20-2024 Lymphocytes Auto (Unsp spec) [#/Vol] 2.77 10*3/uL 0.83-4.51 [facility] Absolute neutrophil countOrd ered By: Yung Valenzuela on 12-20-2024 Neutrophils (Bld) [#/Vol] 4.1 10*3/uL 2.0-7.7 [facility] Automated lymphocyte count a s percentage of total leukocytesOrdered By: Yung Stephensjules on 12-20-2024 Lymphocytes/100 WBC Auto (Unsp spec) 35.2 % 19-41 [facility] Basophil percentageOrdered B y: Yung Ariadnakelly on 12-20-2024 Basophils/100 WBC (Bld) 0.8 % 0-1 [facility] CBC W/Diff, Automatedon 11-27 Absolute Lymph 2.77 X10 3/uL Normal 0.83-4.51 [facility] Comment on above: Order Comment: Order Date: 12/20/24Order Info: [id number] - CBCD Performed By: #### L 501.080 #### [facility] [address] [place], [address] Absolute Neut 4.1 X10 3/uL Normal 2.0-7.7 [facility] Comment on above: Order Comment: Order Date: 12/20/24Order Info: [id number] - CBCD Performed By: #### L 501.080 #### [facility] [address] [place], [address] Basophils/100 WBC (Bld) 0.8 % Normal 0-1 [facility] Comment on above: Order Comment: Order Date: 12/20/24Order Info: [id number] - CBCD Performed By: #### L 501.080 #### [facility] [address] [place], [address] Eosinophils/100 WBC (Bld) 2.8 % Normal 0-5 [facility] Comment on above: Order Comment: Order Date: 12/20/24Order Info: 0184-1 - CBCD Performed By: #### L 501.080 #### [facility] [address] [place], [address] Erythrocyte distribution width (RBC) [Ratio] 13.9 % Normal 11.6-14.6 [facility] Comment on above: Order Comment: Order Date: 12/20/24Order Info: 0184-1 - CBCD Performed By: #### L 501.080 #### [facility] [address] [place], [address] Hematocrit (Bld) [Volume fraction] 39.3 % Normal 37-47 [facility] Comment on above: Order Comment: Order Date: 12/20/24Order Info: 0184- - CBCD Performed By: #### L 501.080 #### [facility] [address] [place], [address] Hemoglobin (Bld) [Mass/Vol] 12.7 g/dL Normal 12.0-15.0 [facility] Comment on above: Order Comment: Order Date: 12/20/24Order Info: 0184- - CBCD Performed By: #### L 501.080 #### [facility] [address] [place], [address] IG% 0.500 Normal 0.0-0.9 [facility] Comment on above: Order Comment: Order Date: 12/20/24Order Info: 0184-1 - CBCD Result Comment: IG% - Immature Granulocytes (promyelocytes, myelocytes and metamyelocytes) > 1% indicates that a LEFT SHIFT is Present. Performed By: #### L 501.080 #### [facility] [address] [place], [address] Lymphocytes/100 WBC (Bld) 35.2 % Normal 19-41 [facility] Comment on above: Order Comment: Order Date: 12/20/24Order Info: 0184-1 - CBCD Performed By: #### L 501.080 #### [facility] [address] [place], [address] MCH (RBC) [Entitic mass] 28.3 pg Normal 27.0-32.0 [facility] Comment on above: Order Comment: Order Date: 12/20/24Order Info: 0184-1 - CBCD Performed By: #### L 501.080 #### [facility] [address] [place], [address] MCHC (RBC) [Mass/Vol] 32.3 g/dL Normal 32-36 [facility] Comment on above: Order Comment: Order Date: 12/20/24Order Info: 0184-1 - CBCD Performed By: #### L 501.080 #### [facility] [address] [place], [address] MCV (RBC) [Entitic vol] 87.5 fL Normal 81-99 [facility] Comment on above: Order Comment: Order Date: 12/20/24Order Info: 0184- - CBCD Performed By: #### L 501.080 #### [facility] [address] [place], [address] Monocytes/100 WBC (Bld) 8.5 % Normal 0-10 [facility] Comment on above: Order Comment: Order Date: 12/20/24Order Info: 0184-1 - CBCD Performed By: #### L 501.080 #### [facility] [address] [place], [address] Neutrophils/100 WBC (Bld) 52.2 % Normal 47-70 [facility] Comment on above: Order Comment: Order Date: 12/20/24Order Info: 0184-1 - CBCD Performed By: #### L 501.080 #### [facility] [address] [place], [address] Nucleated RBC (Bld) [#/Vol] 0 10*3/uL Normal 0-5 [facility] Comment on above: Order Comment: Order Date: 12/20/24Order Info: 0184-1 - CBCD Performed By: #### L 501.080 #### [facility] [address] [place], [address] Platelet mean volume (Bld) [Entitic vol] 10.9 fL Normal 6.2-12.0 [facility] Comment on above: Order Comment: Order Date: 12/20/24Order Info: 0184-1 - CBCD Performed By: #### L 501.080 #### [facility] [address] [place], [address] Platelets (Bld) [#/Vol] 317 10*3/uL Normal 150-450 [facility] Comment on above: Order Comment: Order Date: 12/20/24Order Info: 183- - CBCD Performed By: #### L 501.080 #### [facility] [address] [place], [address] RBC (Bld) [#/Vol] 4.49 10*6/uL Normal 4.2-5.4 [facility] Comment on above: Order Comment: Order Date: 12/20/24Order Info: 018- - CBCD Performed By: #### L 501.080 #### [facility] [address] [place], [address] RDW SD 44.0 fl High 35.1-43.9 [facility] Comment on above: Order Comment: Order Date: 12/20/24Order Info: 0184-1 - CBCD Performed By: #### L 501.080 #### [facility] [address] [place], [address] WBC (Bld) [#/Vol] 7.9 10*3/uL Normal 4.4-11.0 [facility] Comment on above: Order Comment: Order Date: 12/20/24Order Info: 018-1 - CBCD Performed By: #### L 501.080 #### [facility] [address] [place], [address] Eosinophil percentageOrdered By: Yung Valenzuela on 12-20-2024 Eosinophils/100 WBC (Bld) 2.8 % 0-5 [facility] Erythrocyte distribution wid th ratioOrdered By: Yung Valenzuela on 12-20-2024 Erythrocyte distribution width (RBC) [Ratio] 13.9 % 11.6-14.6 [facility] Erythrocyte distribution wid th standard deviationOrdered By: Yung Valenzuela on 12-20-2024 Erythrocyte distribution width (RBC) [Entitic vol] 44.0 fL High 35.1-43.9 [facility] Erythrocyte distribution width (RBC) [Ratio] 44.0 fl High 35.1-43.9 [facility] Hematocrit Auto (Bld) [Volum e fraction]Ordered By: Yung Valenzuela on 12-20-2024 Hematocrit (Bld) [Volume fraction] 39.3 % 37-47 [facility] Hemoglobin measurementOrdere d By: Yung Valenzuela on 12-20-2024 Hemoglobin (Bld) [Mass/Vol] 12.7 g/dL 12.0-15.0 [facility] Immature granulocytes/100 WB C Auto (Bld)Ordered By: Yung Valenzuela on 12-20-2024 Immature granulocytes/100 WBC (Bld) 0.500 % 0.0-0.9 [facility] Comment on above: IG% - Immature Granu locytes (promyelocytes, myelocytes and metamyelocytes) > 1% indicates that a LEFT SHIFT is Present. Lymphocytes Auto (Unsp spec) [#/Vol]Ordered By: Yung Valenzuela on 12-20-2024 Lymphocytes (Bld) [#/Vol] 2.77 10*3/uL 0.83-4.51 [facility] Lymphocytes/100 WBC Auto (Un sp spec)Ordered By: Yung Valenzuela on 12-20-2024 Lymphocytes/100 WBC (Bld) 35.2 % 19-41 [facility] MCV (mean corpuscular volume ) determinationOrdered By: Yung Valenzuela on 12-20-2024 MCV (RBC) [Entitic vol] 87.5 fL 81-99 [facility] Mean corpuscular hemoglobin (MCH) determinationOrdered By: Yung Valenzuela on 12-20-2024 MCH (RBC) [Entitic mass] 28.3 pg 27.0-32.0 [facility] Mean corpuscular hemoglobin concentration (MCHC) determinationOrdered By: Yung Valenzuela on 12-20-2024 MCHC (RBC) [Mass/Vol] 32.3 g/dL 32-36 [facility] Mean platelet volume determi nationOrdered By: Yung Valenzuela on 12-20-2024 Platelet mean volume (Bld) [Entitic vol] 10.9 fL 6.2-12.0 [facility] Monocyte percentageOrdered B y: Yung Valenzuela on 12-20-2024 Monocytes/100 WBC (Bld) 8.5 % 0-10 [facility] Neutrophil percentageOrdered By: Yung Valenzuela on 12-20-2024 Neutrophils/100 WBC (Bld) 52.2 % 47-70 [facility] Nucleated red blood cell per centageOrdered By: Yung Valenzuela on 12-20-2024 Nucleated RBC/100 WBC (Bld) [Ratio] 0 % 0-5 [facility] Platelet countOrdered By: Samantha Valenzuela on 12-20-2024 Platelets (Bld) [#/Vol] 317 10*3/uL 150-450 [facility] RBC Auto (Bld) [#/Vol]Ordere d By: Yung Valenzuela on 12-20-2024 RBC (Bld) [#/Vol] 4.49 10*6/uL 4.2-5.4 [facility] White blood cell (WBC) count Ordered By: Yung Valenzuela on 12-20-2024 WBC (Bld) [#/Vol] 7.9 10*3/uL 4.4-11.0 [facility] Gastroenterology Visit Repor ton 12-15-2024 Gastroenterology Visit Report [facility] [address] [place] [address] OFFICE VISIT Date of Service: 12/15/24 MR#: [id number] Acct: [id number] Name: JESS MEEKS Rep #: [id number] : 1965 Provider: GREEN BELT-C Jolene Ev ans Age/Sex: 59/F Location: [facility] Status: Signed Intake Vital Signs 11/24/24 16:20 Height 5 ft 5 in Intake Visit Reasons: Hospital follow up Chief Complaint: cough, drainage, left eye redness Manager Advertising Required: No Accompanied by: Self Is patient in pain?: No Allergies naproxen Allergy (Unknown, Verified 12/15/24 10:03) hives cat dander Allergy (Verified 12/15/24 10:03) NEEDS FOLLOW-UP pollen extracts (pollens) Allergy (Verified 12/15/24 10:03) NEEDS FOLLOW-UP bupropion (From Wellbutrin) Adverse Reaction (Unknown, Verified 12/15/24 10:03) Diarrhea cyclosporine (From Restasis) Adverse Reaction (Verified 12/15/24 10:03) eye irritation metformin Adverse Reaction (Verified 12/15/24 10:03) Diarrhea sertraline (From Zoloft) Adverse Reaction (Verified 12/15/24 10:03) Diarrhea Vufspvb-GMS-CjF Reductase Inhibitor Adverse Reaction (Verified 12/15/24 10:03) muscle cramps Medications ???Medication ???Instructions ???Recorded ???Confirmed ???Type rosuvastatin 5 mg tablet 5 mg PO DAILY 03/05/21 12/15/24 Hi story multivitamin (One Daily 1 tab PO DAILY 06/05/21 12/15/24 H istory Multivitamin tablet) ipratropium bromide 21 mcg (0.03 1 spray intranasal BID-TID PRN 12/15/24 Rx %) nasal spray allergy symptoms #30 mL lisinopril 20 mg tablet 20 mg PO DAILY 12/29/23 12/15/24 H istory ascorbic acid (vitamin C) 500 mg 500 mg PO DAILY 11/24/24 12/15/24 History capsule calcium 600 mg (as 1 cap PO DAILY 11/24/24 12/15/24 H istory carbonate)-vitamin D3 5 mcg (200 unit) capsule (Calcium 600 + D(3)) calcium carbonate (Tums Extra 600 mg PO TID PRN dyspepsia 12/15/24 History Strength Smoothies) duloxetine 60 mg capsule,delayed 60 mg PO DAILY 11/24/24 12/15/24 H istory release oxybutynin chloride 10 mg 10 mg PO DAILY 11/24/24 12/15/24 H istory tablet,extended release 24 hr zinc gluconate 50 mg tablet 50 mg PO DAILY 11/24/24 12/15/24 H istory acetaminophen 650 mg 1,300 mg PO Q12H 12/08/24 12/15/24 History tablet,extended release (Tylenol Arthritis Pain) cyclobenzaprine 10 mg tablet 10 mg PO QDAY PRN 12/08/24 5 History diclofenac sodium 75 mg 75 mg PO PRN pain 12/08/24 5 History tablet,delayed release estradiol 0.01% (0.1 mg/gram) 1 g vaginal 3XW 12/08/24 12/15/24 History vaginal cream lactobacillus combination no.4 3 3,000 mmu cells PO QDAY 12/08/24 0 12/15/24 History billion cell capsule (Probiotic) minocycline 50 mg capsule 50 mg PO 12/08/24 12/15/24 History omeprazole 20 mg capsule,delayed 20 mg PO QDAY 12/08/24 12/15/24 Hi story release polyethylene glycol 3350 17 17 g PO QDAY 12/08/24 12/15/24 His tory gram/dose oral powder cetirizine 10 mg capsule (Zyrtec) 10 mg PO HS allergy symptoms 11/2712/15/24 History cholecalciferol (vitamin D3) 125 125 mcg PO QDAY 12/15/24 12/15/24 History mcg (5,000 unit) capsule coenzyme Q10 100 mg capsule (Co 100 mg PO QDAY 12/15/24 12/15/24 H istory Q-10) cranberry extract 500 mg capsule 500 mg PO BID 12/15/24 12/15/24 Hi story PFSH Medical History (Updated 12/15/24 @ 11:02 by DORY Saldana) Constipation Gall stones Leukocytosis Acute kidney injury Encounter for screening colonoscopy Pap smear for cervical cancer screening Screening mammogram for breast cancer Headache Elevated liver function tests Decreased GFR Hyperlipemia Multiple complications of diabetes mellitus Vitamin B deficiency Vitamin D deficiency ADHD (attention deficit hyperactivity disorder) Insomnia Periodic limb movement Carpal tunnel syndrome Back ache Urge incontinence Abdominal bloating Diarrhea Colon polyps Abdominal pain Anxiety Kidney disease GERD (gastroesophageal reflux disease) GI bleed CPAP (continuous positive airway pressure) dependence Former smoker Class 1 obesity with body mass index (BMI) of 33.0 to 33.9 in adult History of insomnia Obstructive sleep apnea on CPAP Acne rosacea PTSD (post-traumatic stress disorder) Depression Degenerative disc disease Chronic neck and back pain Limb weakness Hay fever Fatigue Diabetes Shoulder pain Hemorrhoids SOB (shortness of breath) Hypertension Arthritis Surgical History (Updated 12/08/24 @ 09:03 by Twila Car) History of tonsillectomy Fusion of lumbar spine Hx of cholecystectomy H/O: hysterectomy History of spinal surgery Family History (Updated 12/08/24 @ 09:14 by Twila Car) Father Hypertension Myocardial infarction Art (more content not included)... Normal [facility] Culture, Blood (WB)on 2024 CUB Blood cultures x2, f rom two different sites AEROBIC BOTTLE AMENDED GRAM STAIN= GRAM NEGATIVE RODS Culture, Blood (WB) RESULTS CALLED TO WILFREDO 11/27/24 0021 Sylvester Dailey. REPORT READ BACK BY SAME. Culture, Blood (WB) AMENDED GRAM STAIN RESULTS CALLED TO DR. BASS 11/27/24 0805 Twila Elliott. REPORT READ BACK BY . No anaerobic bacteria isolated. No growth in 48 hours. POSSIBLE NON VIABLE ORGANISM If further studies are desired, please contact the Microbiology Laboratory within 48 hours. Sphingomonas paucimobilis Amount Growth Growth Sphingomonas paucimobilis: REACTION Normal [facility] Comment on above: Performed By: #### L 501.5200, L500.4100, L100.0100, L500.4050, L501.9520, L501.9985 #### [facility] [address] [place], [place], [address] CBC W/Diff, Automatedon 02-0 PATH REV Reviewed Normal [facility] Comment on above: Order Comment: Order Date: 11/29/24Order Info: 0184-1 - CBCD Result Comment: Zia Spring M.D. 12/01/24 AMENDED REPORT 12/01/24911 PATH REV previously reported as: February huan Performed By: #### L 501.080 #### [facility] [address] [place], [place], [id number] Celiac AB,Comprehensiveon ANTIGLIADIN IGA 2 units Normal 0-19 [facility] Comment on above: Order Comment: Order Date: 11/29/24Order Info: 0751-1 - CELAB Result Comment: Nega tive 0 - 19 Weak Positive 20 - 30 Moderate to Strong Positive >30 Performed By: #### L 501.080 #### [facility] [address] [place], [place], [id number] ANTIGLIADIN IGG 2 units Normal 0-19 [facility] Comment on above: Order Comment: Order Date: 11/29/24Order Info: 075- - CELAB Result Comment: Nega tive 0 - 19 Weak Positive 20 - 30 Moderate to Strong Positive >30 Performed By: #### L 501.080 #### [facility] [address] [place], [address] ENDOMYSIAL IGA Negative Normal Negative [facility] Comment on above: Order Comment: Order Date: 11/29/24Order Info: 075- - CELAB Performed By: #### L 501.080 #### [facility] [address] [place], [place], [id number] IMMUNOGLOB A QN 89 mg/dL Normal 87-352 [facility] Comment on above: Order Comment: Order Date: 11/29/24Order Info: 075-1 - CELAB Result Comment: Perf ormed at: - [facility] [address] [id number] Physical Therapy Manager: Horacio Zamorano PhD, Phone: [phone] Performed By: #### L 501.080 #### [facility] [address] [place], [address] tTG IGA <2 Normal 0-3 [facility] Comment on above: Order Comment: Order Date: 11/29/24Order Info: 0751-1 - CELAB Result Comment: Nega tive 0 - 3 Weak Positive 4 - 10 Positive >10 Tissue Transglutaminase (tTG) has been identified as the endomysial antigen. Studies have demonstr- ated that endomysial IgA antibodies have over 99% specificity for gluten sensitive enteropathy. Performed By: #### L 501.080 #### [facility] [address] [facility] [place], [place], [id number] tTG IGG <2 Normal 0-5 [facility] Comment on above: Order Comment: Order Date: 11/29/24Order Info: 0751-1 - CELAB Result Comment: Nega tive 0 - 5 Weak Positive 6 - 9 Positive >9 Performed By: #### L 501.080 #### [facility] [address] [place], [place], [id number] Absolute lymphocyte countOrd ered By: Yung Valenzuela on 11-29-2024 Lymphocytes Auto (Unsp spec) [#/Vol] 2.28 10*3/uL 0.83-4.51 [facility] Absolute neutrophil countOrd ered By: Yung Valenzuela on 11-29-2024 Neutrophils (Bld) [#/Vol] 4.9 10*3/uL 2.0-7.7 [facility] Acute Abdomen Inc Cheston Acute [facility]domen [facility] Chest [facility] [address] [place], [place] [id number] Acute [facility]domen Inc Chest MR#: [id number] Acct: [id number] Name: JESS MEEKS Rep #: [id number] : 1965 F 59 From: Antoni Bruce MD PCP: Dr. Yung Valenzuela MD Status: [facility] Study: Acute Abdomen Inc Chest Date of Exam: 11/29/24 Exam# [id number] Ordering Dr: Yung Valenzuela MD EXAM: XR Abdomen, 2 Views and XR Chest, 1 View CLINICAL INDICATION: TECHNIQUE: Frontal view of the chest, frontal view of the abdomen/pelvis and upright or decubitus view of the abdomen. COMPARISON: No relevant prior studies available. FINDINGS: LUNGS AND PLEURAL SPACES: Unremarkable. No consolidation. No pneumothorax. HEART: Unremarkable. No cardiomegaly. MEDIASTINUM: Unremarkable. Normal mediastinal contour. INTRAPERITONEAL SPACE: No free air. GASTROINTESTINAL TRACT: Fecal retention in the colon consistent with constipation. No dilation. BONES/JOINTS: Unremarkable. No acute fracture. RAD/Acute Abdomen Inc Chest IMPRESSION: Fecal retention in the colon consistent with constipation. Reading Location: [facility] CC: Dr. Yung Valenzuela MD Senior Planning Analyst: Signed Normal [facility] Albumin to globulin ratioOrd ered By: Yung Valenzuela on 11-29-2024 Albumin/Globulin [Mass ratio] 0.8 {ratio} Low 0.9-2.4 [facility] Bilirubin, totalOrdered By: Yung Valenzuela on 11-29-2024 Bilirubin [Mass/Vol] 0.30 mg/dL 0.20-1.00 [facility] Comment on above: For patients on eltr ombopag therapy, use of Dimension [place] TBIL is not recommended. Blood eosinophils/100 leukoc ytesOrdered By: Yung Valenzuela on 11-29-2024 Eosinophils/100 WBC (Bld) 3 % 0-5 [facility] Blood lymphocytes/100 leukoc ytesOrdered By: Yung Valenzuela on 11-29-2024 Lymphocytes/100 WBC (Bld) 25 % 19-41 [facility] Blood metamyelocytes/100 kalee kocytesOrdered By: Yung Valenzuela on 11-29-2024 Metamyelocytes/100 WBC (Bld) 3 % High 0-1 [facility] Blood monocytes/100 leukocyt esOrdered By: Yung Valenzuela on 11-29-2024 Monocytes/100 WBC (Bld) 10 % 0-10 [facility] Blood segmented neutrophils/ 100 leukocytesOrdered By: Yung Valenzuela on 11-29-2024 Segmented neutrophils/100 WBC (Bld) 54 % 47-70 [facility] Blood urea nitrogen (BUN)/cr eatinine ratioOrdered By: Yung Valenzuela on 11-29-2024 Urea nitrogen/Creatinine [Mass ratio] 20.6 mg/mg High 10-20 [facility] Carbon dioxide measurementOr dered By: Yung Valenzuela on 11-29-2024 CO2 [Moles/Vol] 27.0 mmol/L 21.0-32.0 [facility] Cells counted Molgen (Bld/Ti ss) [#]Ordered By: Yung Valenzuela on 11-29-2024 Differential Total Cells Counted 100 MANUAL DIFF [facility] Chloride measurementOrdered By: Yung Valenzuela on 11-29-2024 Chloride [Moles/Vol] 103 mmol/L 98-107 [facility] Comprehensive Metabolic Prof ilon 11-29-2024 Albumin [Mass/Vol] 3.4 g/dL Normal 3.2-5.0 [facility] Comment on above: Order Comment: Order Date: 11/29/24Order Info: 0786-1 - CMP Performed By: #### L 501.080 #### [facility] [address] [place], [address] Albumin/Globulin [Mass ratio] 0.8 {ratio} Low 0.9-2.4 [facility] Comment on above: Order Comment: Order Date: 11/29/24Order Info: 0786-1 - CMP Performed By: #### L 501.080 #### [facility] [address] [place], [address] ALK P 82 U/L Normal 45-117 [facility] Comment on above: Order Comment: Order Date: 11/29/24Order Info: 0786-1 - CMP Performed By: #### L 501.080 #### [facility] [address] [place], [address] ALT [Catalytic activity/Vol] 31 U/L Normal 13-56 [facility] Comment on above: Order Comment: Order Date: 11/29/24Order Info: 0786-1 - CMP Performed By: #### L 501.080 #### [facility] [address] [place], [address] AST [Catalytic activity/Vol] 22 U/L Normal 15-37 [facility] Comment on above: Order Comment: Order Date: 11/29/24Order Info: 0786-1 - CMP Performed By: #### L 501.080 #### [facility] [address] [place], [address] Bilirubin [Mass/Vol] 0.30 mg/dL Normal 0.20-1.00 [facility] Comment on above: Order Comment: Order Date: 11/29/24Order Info: 0786-1 - CMP Result Comment: For patients on eltrombopag therapy, use of Dimension [place] TBIL is not recommended. Performed By: #### L 501.080 #### [facility] [address] [place], [address] BUN/CRE 20.6 RATIO High 10-20 [facility] Comment on above: Order Comment: Order Date: 11/29/24Order Info: 0786-1 - CMP Performed By: #### L 501.080 #### [facility] [address] [place], [address] CA,Total 9.2 mg/dL Normal 8.5-10.1 [facility] Comment on above: Order Comment: Order Date: 11/29/24Order Info: 0786-1 - CMP Performed By: #### L 501.080 #### [facility] [address] [place], [address] Chloride [Moles/Vol] 103 mmol/L Normal 98-107 [facility] Comment on above: Order Comment: Order Date: 11/29/24Order Info: 0786-1 - CMP Performed By: #### L 501.080 #### [facility] [address] [place], [address] CO2 [Moles/Vol] 27.0 mmol/L Normal 21.0-32.0 [facility] Comment on above: Order Comment: Order Date: 11/29/24Order Info: 0786-1 - CMP Performed By: #### L 501.080 #### [facility] [address] [place], [address] Creatinine [Mass/Vol] 0.73 mg/dL Normal 0.55-1.02 [facility] Comment on above: Order Comment: Order Date: 11/29/24Order Info: 0786-1 - CMP Result Comment: The validity of the calculated GFR GFRAA in patients over 70 years has not been determined. Clinical correlation is essential. Performed By: #### L 501.080 #### [facility] [address] [place], [address] EST GFR - AA 105 mL/min Normal >60 [facility] Comment on above: Order Comment: Order Date: 11/29/24Order Info: 0786-1 - CMP Result Comment: Afri can Egyptian GFR Calc Performed By: #### L 501.080 #### [facility] [address] [place], [address] GAP 7 Normal 5-15 [facility] Comment on above: Order Comment: Order Date: 11/29/24Order Info: 0786- - CMP Performed By: #### L 501.080 #### [facility] [address] [place], [address] GFR/1.73 sq M.predicted among non-blacks MDRD (S/P/Bld) [Vol rate/Area] 87 mL/min/{1.73_m2} Normal >60 [facility] Comment on above: Order Comment: Order Date: 11/29/24Order Info: 0786-1 - CMP Result Comment: Non- GFR Calc Performed By: #### L 501.080 #### [facility] [address] [place], [address] Globulin (S) [Mass/Vol] 4.1 g/dL Normal 2.2-4.2 [facility] Comment on above: Order Comment: Order Date: 11/29/24Order Info: 0786-1 - CMP Performed By: #### L 501.080 #### [facility] [address] [place], [address] Glucose [Mass/Vol] 124 mg/dL High 74-106 [facility] Comment on above: Order Comment: Order Date: 11/29/24Order Info: 0786-1 - CMP Result Comment: Fast ing Glucose result from 100 to 125 mg/dL suggests IMPAIRED HOMEOSTASIS per A.D.A. criteria. Performed By: #### L 501.080 #### [facility] [address] [place], [address] Potassium [Moles/Vol] 3.6 mmol/L Normal 3.5-5.1 [facility] Comment on above: Order Comment: Order Date: 11/29/24Order Info: 0786-1 - CMP Performed By: #### L 501.080 #### [facility] [address] [place], [address] Sodium [Moles/Vol] 137 mmol/L Normal 136-145 [facility] Comment on above: Order Comment: Order Date: 11/29/24Order Info: 0786-1 - CMP Performed By: #### L 501.080 #### [facility] [address] [place], [address] T PROT 7.5 g/dL Normal 6.4-8.2 [facility] Comment on above: Order Comment: Order Date: 11/29/24Order Info: 0786-1 - CMP Performed By: #### L 501.080 #### [facility] [address] [place], [address] Urea nitrogen [Mass/Vol] 15 mg/dL Normal 7-18 [facility] Comment on above: Order Comment: Order Date: 11/29/24Order Info: [id number] - CMP Performed By: #### L 501.080 #### [facility] [address] [place], [address] Deamidated gliadin IgA antib brandon assayOrdered By: Yung Valenzuela on 11-29-2024 Anti-Gliadin IgA Antibody 2 units 0-19 [facility] Comment on above: Negative 0 - 19 Weak Positive 20 - 30 Moderate to Strong Positive >30 Deamidated gliadin IgG antib brandon assayOrdered By: Yung Valenzuela on 11-29-2024 Anti-Gliadin IgG Antibody 2 units 0-19 [facility] Comment on above: Negative 0 - 19 Weak Positive 20 - 30 Moderate to Strong Positive >30 Endomysial IgA antibody assa yOrdered By: Yung Valenzuela on 11-29-2024 Endomysial IgA Antibody Negative Negative [facility] Erythrocyte distribution wid th ratioOrdered By: Yung Valenzuela on 11-29-2024 Erythrocyte distribution width (RBC) [Ratio] 13.4 % 11.6-14.6 [facility] Erythrocyte distribution wid th standard deviationOrdered By: Yung Valenzuela on 11-29-2024 Erythrocyte distribution width (RBC) [Entitic vol] 41.8 fL 35.1-43.9 [facility] Erythrocyte distribution width (RBC) [Ratio] 41.8 fl 35.1-43.9 [facility] Erythrocyte morphology asses smentOrdered By: Yung Valenzuela on 11-29-2024 RBC morphology finding Nom (Bld) NORM C+C NORMAL NORM C&C [facility] Estimated glomerular filtrat ion rate (GFR) AmericanOrdered By: Yung Valenzuela on 11-29-2024 Estimated GFR (MDRD) Amer 105 mL/min >60 [facility] Comment on above: GFR Calc Glomerular filtration rate ( GFR) estimationOrdered By: Yung Vaelnzuela on 11-29-2024 Estimated GFR (MDRD) Non-Af Amer 87 mL/min >60 [facility] Comment on above: Non- GFR Calc GFR/1.73 sq M.predicted among non-blacks MDRD (S/P/Bld) [Vol rate/Area] 87 mL/min/{1.73_m2} >60 [facility] Comment on above: Non- GFR Calc Glucose measurementOrdered B y: Yung Valenzuela on 11-29-2024 Glucose [Mass/Vol] 124 mg/dL High 74-106 [facility] Comment on above: Fasting Glucose resu lt from 100 to 125 mg/dL suggests IMPAIRED HOMEOSTASIS per A.D.A. criteria. Hematocrit Auto (Bld) [Volum e fraction]Ordered By: Yung Valenzuela on 11-29-2024 Hematocrit (Bld) [Volume fraction] 36.8 % Low 37-47 [facility] Hemoglobin measurementOrdere d By: Yung Valenzuela on 11-29-2024 Hemoglobin (Bld) [Mass/Vol] 11.7 g/dL Low 12.0-15.0 [facility] - Chemistry and C hemistry - challengeOrdered By: Yung Valenzuela on 11-29-2024 AST [Catalytic activity/Vol] 22 U/L 15-37 [facility] Lymphocytes Auto (Unsp spec) [#/Vol]Ordered By: Yung Valenzuela on 11-29-2024 Lymphocytes (Bld) [#/Vol] 2.28 10*3/uL 0.83-4.51 [facility] MCV (mean corpuscular volume ) determinationOrdered By: Yung Valenzuela on 11-29-2024 MCV (RBC) [Entitic vol] 86.6 fL 81-99 [facility] Mean corpuscular hemoglobin (MCH) determinationOrdered By: Yung Valenzuela on 11-29-2024 MCH (RBC) [Entitic mass] 27.5 pg 27.0-32.0 [facility] Mean corpuscular hemoglobin concentration (MCHC) determinationOrdered By: Yung Valenzuela on 11-29-2024 MCHC (RBC) [Mass/Vol] 31.8 g/dL Low 32-36 [facility] Comment on above: Delta: 33.7 on 11/25 Mean platelet volume determi nationOrdered By: Yung Valenzuela on 11-29-2024 Platelet mean volume (Bld) [Entitic vol] 10.0 fL 6.2-12.0 [facility] Myelocyte %Ordered By: Yung Valenzuela on 11-29-2024 Myelocytes/100 WBC (Bld) 5 % High 0-0 [facility] Neutrophil percentageOrdered By: Yung Valenzuela on 11-29-2024 Neutrophils (%) (Auto) Not Reportable [facility] No Panel InformationOrdered By: Yung Valenzuela on 11-29-2024 Tissue Transglutaminase IgG Ab <2 U/mL 0-5 [facility] Comment on above: Negative 0 - 5 Weak Positive 6 - 9 Positive >9 Pathologist review Phan (Unsp spec) [Interp]Ordered By: Yung Valenzuela on 11-29-2024 Differential Pathologist's Review Reviewed [facility] Comment on above: Previous reported re sult: Lashay pressley Edited by: SHILOH on 12/01/24:Zach Spring M.D. 12/01/24 AMENDED REPORT 12/01/24911 PATH REV previously reported as: Lashay pressley Platelet countOrdered By: Samantha Valenzuela on 11-29-2024 Platelets (Bld) [#/Vol] 352 10*3/uL 150-450 [facility] Platelet estimateOrdered By: Yung Valenzuela on 11-29-2024 Platelets LM Ql (Bld) ADEQUATE ADEQ [facility] Platelets LM Ql (Bld)Ordered By: Yung Valenzuela on 11-29-2024 Platelet Estimate ADEQUATE [facility] Potassium measurementOrdered By: Yung Valenzuela on 11-29-2024 Potassium [Moles/Vol] 3.6 mmol/L 3.5-5.1 [facility] RBC Auto (Bld) [#/Vol]Ordere d By: Yung Valenzuela on 11-29-2024 RBC (Bld) [#/Vol] 4.25 10*6/uL 4.2-5.4 [facility] RBC morphology finding Nom ( Bld)Ordered By: Yung Valenzuela on 11-29-2024 Red Blood Cell Morphology NORM C+C NORMAL NORM C&C [facility] Review by pathologistOrdered By: Yung Valenzuela on 11-29-2024 Pathologist review Phan (Unsp spec) [Interp] Reviewed [facility] Comment on above: Previous reported re sult: Lashay huan Edited by: SHILOH on 12/01/24:Zach Spring M.D. 12/01/24 AMENDED REPORT 12/01/24911 PATH REV previously reported as: Lashay pressley Segmented neutrophils/100 WB C (Bld)Ordered By: Yung Valenzuela on 11-29-2024 Neutrophils/100 WBC (Bld) 54 % 47-70 [facility] Serum anion gap measurementO rdered By: Yung Valenzuela on 11-29-2024 Anion gap [Moles/Vol] 7 mmol/L 5-15 [facility] Serum globulin measurementOr dered By: Yung Valenzuela on 11-29-2024 Globulin (S) [Mass/Vol] 4.1 g/dL 2.2-4.2 [facility] Serum immunoglobulin A measu rementOrdered By: Yung Valenzuela on 11-29-2024 Immunoglobulin A 89 mg/dL 87-352 [facility] Comment on above: Performed at: [facility] [employer] [id number] Director: Horacio Zamorano PhD, Phone: [phone] Serum or plasma alanine sutherland otransferase (ALT) measurementOrdered By: Yung Valenzuela on 11-29-2024 ALT [Catalytic activity/Vol] 31 U/L 13-56 [facility] Serum or plasma albumin jethro urement (mass/volume)Ordered By: Yung Valenzuela on 11-29-2024 Albumin [Mass/Vol] 3.4 g/dL 3.2-5.0 [facility] Serum or plasma alkaline wilver sphatase measurementOrdered By: Yung Valenzuela on 11-29-2024 ALP [Catalytic activity/Vol] 82 U/L 45-117 [facility] Serum or plasma calcium jethro urement (mass/volume)Ordered By: Yung Valenzuela on 11-29-2024 Calcium [Mass/Vol] 9.2 mg/dL 8.5-10.1 [facility] Serum or plasma creatinine m easurement (mass/volume)Ordered By: Yung Valenzuela on 11-29-2024 Creatinine [Mass/Vol] 0.73 mg/dL 0.55-1.02 [facility] Comment on above: The validity of the calculated GFR & GFRAA in patients over 70 years has not been determined. Clinical correlation is essential. Serum or plasma urea nitroge n measurement (mass/volume)Ordered By: Yung Valenzuela on 11-29-2024 Urea nitrogen [Mass/Vol] 15 mg/dL 7-18 [facility] Serum tissue transglutaminas e (tTG) IgA antibody assay (units/volume)Ordered By: Yung Valenzuela on 11-29-2024 tTG IgA Qn (S) <2 U/mL 0-3 [facility] Comment on above: Negative 0 - 3 Weak Positive 4 - 10 Positive >10 Tissue Transglutaminase (tTG) has been identified as the endomysial antigen. Studies have demonstr- ated that endomysial IgA antibodies have over 99% specificity for gluten sensitive enteropathy. Sodium levelOrdered By: Yung Valenzuela on 11-29-2024 Sodium [Moles/Vol] 137 mmol/L 136-145 [facility] Total cell countOrdered By: Yung Valenzuela on 11-29-2024 Cells counted Molgen (Bld/Tiss) [#] 100 MANUAL DIFF [facility] Total proteinOrdered By: Caleb Valenzuela on 11-29-2024 Protein [Mass/Vol] 7.5 g/dL 6.4-8.2 [facility] White blood cell (WBC) count Ordered By: Yung Valenzuela on 11-29-2024 WBC (Bld) [#/Vol] 9.1 10*3/uL 4.4-11.0 [facility] tTG IgA Qn (S)Ordered By: Samantha Valenzuela on 11-29-2024 Tissue Transglutaminase IgA Ab <2 U/mL 0-3 [facility] Comment on above: Negative 0 - 3 Weak Positive 4 - 10 Positive >10 Tissue Transglutaminase (tTG) has been identified as the endomysial antigen. Studies have demonstr- ated that endomysial IgA antibodies have over 99% specificity for gluten sensitive enteropathy. Urine Cultureon 11-27-2024 [facility] Streptococcus agalac tiae (B) [place] Count 11,000-25,000 Streptococcus agalactiae (B): REACTION Ampicillin Islt LORI <=0.25 cefTRIAXone Islt LORI <=0.12 S Clindamycin Islt LORI >=1 R Clindamycin.induced Susc Islt NEG Linezolid Islt LORI <=2 S Vancomycin Islt LORI 0.5 S Normal [facility] Comment on above: Performed By: #### M 100.1140 ####[facility] [id number] [place], [place], [address] Bedside Glucoseon 11-26-2024 FINGERSTICK GLU 145 mg/dL High 74-106 [facility] Comment on above: Result Comment: SANDRA GEMENT OF PATIENT CARE PER NURSING PROTOCOL Performed By: #### L 501.5200, L500.4100, L100.0100, L500.4050, L501.9520, L501.9985 #### [facility] [address] [place], [place], [id number] FINGERSTICK GLU 131 mg/dL High 74-106 [facility] Comment on above: Result Comment: SANDRA GEMENT OF PATIENT CARE PER NURSING PROTOCOL Performed By: #### L 501.5200, L500.4100, L100.0100, L500.4050, L501.9520, L501.9985 #### [facility] [address] [place], [place], [address] Discharge Instructionon Discharge Instruction [facility] Medical Records Department [address] [place] [address] Instructions for Home/Discharge Instructions 11/26/24 1148 MR#: [id number] Acct: [id number] Name: JESS MEEKS Rep #: [id number] : 1965 59 From: Antoni Bass DO PCP: Dr. Yung Valenzuela MD Status:ADM IN Discharge Instructions Diet Discharge Diet: 1800 Calorie Control Diet DC O2, CPAP, BIPAP needs Home O2 Discharge instructions: No Dressing / Incision Discharge Activity: Return to Normal Activity Weight Bearing Status: Full weight bearing Follow Up Care Test Results: Test results from this visit will be discussed in further detail at your follow-up appointment, if applicable. Discharge Plan Admission Admit Date/Time: 11/24/24 15:12 Primary Reason for Your Visit: Constipation Attending Provider: Antoni Bass Primary Care Provider: Yung Valenzuela Consulting Providers: Kofi Puckett Discharge Orders/Prescriptions Prescriptions: New amoxicillin 500 mg capsule 500 mg PO TID Qty: 14 0RF Continued rosuvastatin 5 mg tablet 5 mg PO DAILY Zyrtec 10 mg capsule 10 mg PO DAILY PRN (Reason: allergy symptoms) lisinopril 20 mg tablet 20 mg PO DAILY multivitamin [One Daily Multivitamin] Tablet 1 tab PO DAILY acetaminophen [Tylenol Arthritis Pain] 650 mg tablet extended release 650 mg PO Q12H oxybutynin chloride 10 mg tablet extended release 24hr 10 mg PO DAILY duloxetine 60 mg capsule,delayed release(DR/EC) 60 mg PO DAILY zinc gluconate 50 mg tablet 50 mg PO DAILY Tums Extra Strength Smoothies 300 mg (750 mg) tablet,chewable 600 mg PO TID PRN (Reason: dyspepsia) ascorbic acid (vitamin C) 500 mg capsule 500 mg PO DAILY Calcium 600 + D(3) 600 mg-5 mcg (200 unit) capsule 1 cap PO DAILY ipratropium bromide 21 mcg (0.03 %) spray,non-aerosol 1 spray intranasal BID-TID PRN (Reason: allergy symptoms) Qty: 30 6RF Rx Instructions: administer into each nostril Discontinued metformin 500 mg tablet extended release 24 hr 1,000 mg PO BID Patient Comments: PT STATES PCP HAD STOPPED TEMPORARILY (COUPLE WEEKS) AND LAST NIGHT WAS FIRST DOSE SINCE. TOOK 1 TAB Referrals / Follow Up: Yung Valenzuela MD [Primary Care Provider] - Within 1 Week (You will need to discuss your diabetic medication with him) Disposition Disposition (needs filled in before D/C Order can be placed): Home, Self Care 11/26/24 1159 Antoni Bass DO CC: Dr. Kofi Puckett DO; Dr. Yung Valenzuela MD Signed Normal [facility] By: Antoni Bass on 11-26-2024 Bedside Glucose (Misc Panel) 145 mg/dL High 74-106 [facility] Comment on above: MANAGEMENT OF PATIEN T CARE PER NURSING PROTOCOL Glucose [Mass/Vol] 145 mg/dL High 74-106 [facility] Comment on above: MANAGEMENT OF PATIEN T CARE PER NURSING PROTOCOL Basic Metabolic Profile (BMP )on 11-25-2024 BUN/CRE 19.6 RATIO Normal 10-20 [facility] Comment on above: Performed By: #### L 501.5200, L500.4100, L100.0100, L500.4050, L501.9520, L501.9985 #### [facility] [address] [place], [address] CA,Total 8.6 mg/dL Normal 8.5-10.1 [facility] Comment on above: Performed By: #### L 501.5200, L500.4100, L100.0100, L500.4050, L501.9520, L501.9985 #### [facility] [address] [place], [address] ECRCL 83.62 ml/min Normal [facility] Comment on above: Performed By: #### L 501.5200, L500.4100, L100.0100, L500.4050, L501.9520, L501.9985 #### [facility] [address] [place], [address] EST GFR - AA 98 mL/min Normal >60 [facility] Comment on above: Result Comment: Afri can Egyptian GFR Calc Performed By: #### L 501.5200, L500.4100, L100.0100, L500.4050, L501.9520, L501.9985 #### [facility] [address] [place], [address] GAP 8 Normal 5-15 [facility] Comment on above: Performed By: #### L 501.5200, L500.4100, L100.0100, L500.4050, L501.9520, L501.9985 #### [facility] [address] [place], [address] Bedside Glucoseon 11-25-2024 FINGERSTICK GLU 145 mg/dL High 74-106 [facility] Comment on above: Result Comment: SANDRA NERI OF PATIENT CARE PER NURSING PROTOCOL Performed By: #### L 501.5200, L500.4100, L100.0100, L500.4050, L501.9520, L501.9985 #### [facility] [address] [place], [address] FINGERSTICK GLU 133 mg/dL High 74-106 [facility] Comment on above: Result Comment: SANDRA GEMENT OF PATIENT CARE PER NURSING PROTOCOL Performed By: #### L 501.5200, L500.4100, L100.0100, L500.4050, L501.9520, L501.9985 #### [facility] [address] [place], [address] FINGERSTICK GLU 152 mg/dL High 74-106 [facility] Comment on above: Result Comment: SANDRA GEMENT OF PATIENT CARE PER NURSING PROTOCOL Performed By: #### L 501.080 ####[facility] [address] [place], [address] FINGERSTICK GLU 145 mg/dL High 74-106 [facility] Comment on above: Result Comment: SANDRA GEMENT OF PATIENT CARE PER NURSING PROTOCOL Performed By: #### L 501.5200, L500.4100, L100.0100, L500.4050, L501.9520, L501.9985 #### [facility] [address] [place], [address] Blood urea nitrogen (BUN)/cr eatinine ratioOrdered By: Kofi Puckett on 11-25-2024 Urea nitrogen/Creatinine [Mass ratio] 19.6 mg/mg 10-20 [facility] CBC W/Diff, Automatedon 10-28 PATH REV Reviewed Normal [facility] Comment on above: Result Comment: Neut rophilic leukocytosis. Clinical correlation necessary. [place] M.D. 11/25/24 AMENDED REPORT 11/25/24 1503 PATH REV previously reported as: Lashay pressley Performed By: #### L 501.5200, L500.4100, L100.0100, L500.4050, L501.9520, L501.9985 #### [facility] [address] [place], [address] CBC-Complete Blood Cnt No Di adrianon 11-25-2024 Erythrocyte distribution width (RBC) [Ratio] 14.0 % Normal 11.6-14.6 [facility] Comment on above: Performed By: #### L 501.5200, L500.4100, L100.0100, L500.4050, L501.9520, L501.9985 #### [facility] [address] [place], [address] Hematocrit (Bld) [Volume fraction] 35.9 % Low 37-47 [facility] Comment on above: Performed By: #### L 501.5200, L500.4100, L100.0100, L500.4050, L501.9520, L501.9985 #### [facility] [address] [place], [address] Hemoglobin (Bld) [Mass/Vol] 12.1 g/dL Normal 12.0-15.0 [facility] Comment on above: Performed By: #### L 501.5200, L500.4100, L100.0100, L500.4050, L501.9520, L501.9985 #### [facility] [address] [place], [address] MCH (RBC) [Entitic mass] 28.7 pg Normal 27.0-32.0 [facility] Comment on above: Performed By: #### L 501.5200, L500.4100, L100.0100, L500.4050, L501.9520, L501.9985 #### [facility] [address] [place], [address] MCHC (RBC) [Mass/Vol] 33.7 g/dL Normal 32-36 [facility] Comment on above: Performed By: #### L 501.5200, L500.4100, L100.0100, L500.4050, L501.9520, L501.9985 #### [facility] [address] [place], [address] MCV (RBC) [Entitic vol] 85.1 fL Normal 81-99 [facility] Comment on above: Performed By: #### L 501.5200, L500.4100, L100.0100, L500.4050, L501.9520, L501.9985 #### [facility] [address] [place], [address] Platelet mean volume (Bld) [Entitic vol] 10.0 fL Normal 6.2-12.0 [facility] Comment on above: Performed By: #### L 501.5200, L500.4100, L100.0100, L500.4050, L501.9520, L501.9985 #### [facility] [address] [place], [address] Platelets (Bld) [#/Vol] 278 10*3/uL Normal 150-450 [facility] Comment on above: Performed By: #### L 501.5200, L500.4100, L100.0100, L500.4050, L501.9520, L501.9985 #### [facility] [address] [place], [address] RBC (Bld) [#/Vol] 4.22 10*6/uL Normal 4.2-5.4 [facility] Comment on above: Performed By: #### L 501.5200, L500.4100, L100.0100, L500.4050, L501.9520, L501.9985 #### [facility] [address] [place], [address] RDW SD 43.3 fl Normal 35.1-43.9 [facility] Comment on above: Performed By: #### L 501.5200, L500.4100, L100.0100, L500.4050, L501.9520, L501.9985 #### [facility] [address] [place], [place], [address] WBC (Bld) [#/Vol] 15.5 10*3/uL High 4.4-11.0 [facility] Comment on above: Performed By: #### L 501.5200, L500.4100, L100.0100, L500.4050, L501.9520, L501.9985 #### [facility] [address] [place], [address] Carbon dioxide measurementOr dered By: Kofi Puckett on 11-25-2024 CO2 [Moles/Vol] 23.0 mmol/L Normal 21.0-32.0 [facility] Comment on above: Performed By: #### L 501.5200, L500.4100, L100.0100, L500.4050, L501.9520, L501.9985 #### [facility] [address] [facility] [place], [place], [address] Chloride measurementOrdered By: Kofi Puckett on 11-25-2024 Chloride [Moles/Vol] 106 mmol/L Normal 98-107 [facility] Comment on above: Performed By: #### L 501.5200, L500.4100, L100.0100, L500.4050, L501.9520, L501.9985 #### [facility] [address] [place], [address] Erythrocyte distribution wid th ratioOrdered By: Kofi Puckett on 11-25-2024 Erythrocyte distribution width (RBC) [Ratio] 14.0 % 11.6-14.6 [facility] Erythrocyte distribution wid th standard deviationOrdered By: Kofi Puckett on 11-25-2024 Erythrocyte distribution width (RBC) [Entitic vol] 43.3 fL 35.1-43.9 [facility] Erythrocyte distribution width (RBC) [Ratio] 43.3 fl 35.1-43.9 [facility] Estimated glomerular filtrat ion rate (GFR) AmericanOrdered By: Kofi Puckett on 11-25-2024 Estimated GFR (MDRD) Amer 98 mL/min >60 [facility] Comment on above: GFR Calc Estimation of creatinine sherrell aranceOrdered By: Kofi Puckett on 11-25-2024 Estimated Creatinine Clearance Calc 83.62 ml/min [facility] Glomerular filtration rate ( GFR) estimationOrdered By: Kofi Puckett on 11-25-2024 Estimated GFR (MDRD) Non-Af Amer 81 mL/min >60 [facility] Comment on above: Non- GFR Calc GFR/1.73 sq M.predicted among non-blacks MDRD (S/P/Bld) [Vol rate/Area] 81 mL/min/{1.73_m2} Normal >60 [facility] Comment on above: Non- GFR Calc Result Comment: Non- GFR Calc Performed By: #### L 501.5200, L500.4100, L100.0100, L500.4050, L501.9520, L501.9985 #### [facility] [address] [facility] [place], [address] Glucose measurementOrdered B y: Kofi Puckett on 11-25-2024 Glucose [Mass/Vol] 165 mg/dL High 74-106 [facility] Comment on above: Fasting Glucose resu lt greater than or equal to 126 mg/dL suggests DIABETES MELLITUS per A.D.A. criteria. Result Comment: Fast ing Glucose result greater than or equal to 126 mg/dL suggests DIABETES MELLITUS per A.D.A. criteria. Performed By: #### L 501.5200, L500.4100, L100.0100, L500.4050, L501.9520, L501.9985 #### [facility] [address] [facility] [place], [place], [id number] Hematocrit Auto (Bld) [Volum e fraction]Ordered By: Kofi Puckett on 11-25-2024 Hematocrit (Bld) [Volume fraction] 35.9 % Low 37-47 [facility] Hemoglobin measurementOrdere d By: Kofi Puckett on 11-25-2024 Hemoglobin (Bld) [Mass/Vol] 12.1 g/dL 12.0-15.0 [facility] Lactic Acidon 11-25-2024 Lactate [Moles/Vol] 1.8 mmol/L Normal 0.4-1.9 [facility] Comment on above: Performed By: #### L 503.6005 ####[facility] [address] [place], [place], [id number] Lactic acid measurementOrder ed By: Kofi Puckett on 11-25-2024 Lactate [Moles/Vol] 1.8 mmol/L 0.4-2.0 [facility] [facility] MCV (mean corpuscular volume ) determinationOrdered By: Kofi Puckett on 11-25-2024 MCV (RBC) [Entitic vol] 85.1 fL 81-99 [facility] Mean corpuscular hemoglobin (MCH) determinationOrdered By: Kofi Puckett on 11-25-2024 MCH (RBC) [Entitic mass] 28.7 pg 27.0-32.0 [facility] Mean corpuscular hemoglobin concentration (MCHC) determinationOrdered By: Kofi Puckett on 11-25-2024 MCHC (RBC) [Mass/Vol] 33.7 g/dL 32-36 [facility] Mean platelet volume determi nationOrdered By: Kofi Puckett on 11-25-2024 Platelet mean volume (Bld) [Entitic vol] 10.0 fL 6.2-12.0 [facility] Platelet countOrdered By: Vinny Puckett on 11-25-2024 Platelets (Bld) [#/Vol] 278 10*3/uL 150-450 [facility] Potassium measurementOrdered By: Kofi Puckett on 11-25-2024 Potassium [Moles/Vol] 3.8 mmol/L Normal 3.5-5.1 [facility] Comment on above: Performed By: #### L 501.5200, L500.4100, L100.0100, L500.4050, L501.9520, L501.9985 #### [facility] Laboratory [address] [place], [address] RBC Auto (Bld) [#/Vol]Ordere d By: Kofi Puckett on 11-25-2024 RBC (Bld) [#/Vol] 4.22 10*6/uL 4.2-5.4 [facility] Serum anion gap measurementO rdered By: Kofi Puckett on 11-25-2024 Anion gap [Moles/Vol] 8 mmol/L 5-15 [facility] Serum or plasma calcium jethro urement (mass/volume)Ordered By: Kofi Puckett on 11-25-2024 Calcium [Mass/Vol] 8.6 mg/dL 8.5-10.1 [facility] Serum or plasma creatinine m easurement (mass/volume)Ordered By: Kofi Puckett on 11-25-2024 Creatinine [Mass/Vol] 0.77 mg/dL Normal 0.55-1.02 [facility] Comment on above: The validity of the calculated GFR & GFRAA in patients over 70 years has not been determined. Clinical correlation is essential. Result Comment: The validity of the calculated GFR GFRAA in patients over 70 years has not been determined. Clinical correlation is essential. Performed By: #### L 501.5200, L500.4100, L100.0100, L500.4050, L501.9520, L501.9985 #### [facility] [address] [place], [place], [id number] Serum or plasma urea nitroge n measurement (mass/volume)Ordered By: Kofi Puckett on 11-25-2024 Urea nitrogen [Mass/Vol] 15 mg/dL Normal 7-18 [facility] Comment on above: Performed By: #### L 501.5200, L500.4100, L100.0100, L500.4050, L501.9520, L501.9985 #### [facility] [address] [place], [place], [id number] Sodium levelOrdered By: Beto Puckett on 11-25-2024 Sodium [Moles/Vol] 137 mmol/L Normal 136-145 [facility] Comment on above: Performed By: #### L 501.5200, L500.4100, L100.0100, L500.4050, L501.9520, L501.9985 #### [facility] [address] [place], [place], [id number] White blood cell (WBC) count Ordered By: Kofi Puckett on 11-25-2024 WBC (Bld) [#/Vol] 15.5 10*3/uL High 4.4-11.0 [facility] Abdomen/Pelvis W IV Cont ONL Yon 11-24-2024 Abdomen/Pelvis W IV Cont ONLY [facility] Imaging Services [address] [place] [address] Abdomen/Pelvis W IV Cont ONLY MR#: [id number] Acct: [id number] Name: JESS MEEKS Rep #: [id number] : 1965 F 59 From: Harrison rowe MD PCP: Dr. Yung Valenzuela MD Status: [facility] ER Study: Abdomen/Pelvis W IV Cont ONLY Date of Exam: Exam# [id number] Ordering Dr: Pepito Cabrera MD PROCEDURE: ABDOMEN/PELVIS W IV CONT ONLY REASON FOR EXAM: Abdominal pain and cramping since the morning. TECHNIQUE: Abdomen and pelvis CT with intravenous contrast. IV CONTRAST: COMPARISON: None. FINDINGS: Lung bases: Minimal increased linear markings at the lung bases suggestive of mild linear atelectasis and/or scarring. Coronary artery calcification. Liver: Diffuse fatty infiltration. There is a 1.7 cm cyst in the medial aspect of the right lobe of the liver adjacent to the caudate lobe. Is also evidence of a 1.8 cm cyst in the inferior medial aspect of the right lobe of the liver. Scattered 1 cm cysts are also seen. Gallbladder: Surgically absent. Spleen: Unremarkable. Pancreas: Unremarkable. Adrenals: Unremarkable. Kidneys: Unremarkable. Bladder: Unremarkable. Reproductive Organs: Unremarkable. Bowel: Small hiatal hernia. A large amount of fecal material is seen in the colon. Appendix: The appendix is not identified. There is no inflammatory process identified in the right lower quadrant to suggest appendicitis. Lymph nodes: No suspicious lymph node enlargement. Vasculature: Mild diffuse atherosclerotic calcifications are noted. Peritoneum / Retroperitoneum: No ascites. No free air. Bones: Degenerative changes of the spine. Prior fusion at the L5-S1 level. A spinal cord stimulator device is seen. CT/Abdomen/Pelvis W IV Cont ONLY IMPRESSION: Large amount of fecal material is seen in the colon. Fatty infiltration of the liver. Hepatic cysts. Status post cholecystectomy. One or more dose reduction techniques were used (e.g., Automated exposure control, adjustment of the mA and/or kV according to patient size, use of iterative reconstruction technique). Reading Location: [place] [address] CC: Dr. Pepito Cabrera MD; Dr. Yung Valenzuela MD Senior Planning Analyst: Signed Normal [facility] Absolute lymphocyte countOrd ered By: Pepito Cabrera on 11-24-2024 Lymphocytes Auto (Unsp spec) [#/Vol] 3.49 10*3/uL 0.83-4.51 [facility] Absolute neutrophil countOrd ered By: Pepito Cabrera on 11-24-2024 Neutrophils (Bld) [#/Vol] 16.1 10*3/uL High 2.0-7.7 [facility] Albumin to globulin ratioOrd ered By: Pepito Cabrera on 11-24-2024 Albumin/Globulin [Mass ratio] 1.1 {ratio} 0.9-2.4 [facility] Automated lymphocyte count a s percentage of total leukocytesOrdered By: Pepito Cabrera on 11-24-2024 Lymphocytes/100 WBC Auto (Unsp spec) 16.2 % Low 19-41 [facility] Basophil percentageOrdered B y: Pepito Cabrera on 11-24-2024 Basophils/100 WBC (Bld) 0.5 % 0-1 [facility] Bedside Glucoseon 11-24-2024 FINGERSTICK GLU 161 mg/dL High 74-106 [facility] Comment on above: Result Comment: SANDRA HE OF PATIENT CARE PER NURSING PROTOCOL Performed By: #### L 501.5200, L500.4100, L100.0100, L500.4050, L501.9520, L501.9985 #### [facility] Laboratory [address] [place], [address] FINGERSTICK GLU 177 mg/dL High 74-106 [facility] Comment on above: Result Comment: SANDRA HE OF PATIENT CARE PER NURSING PROTOCOL Performed By: #### L 501.080 #### [facility] [address] [place], [place], [id number] Bilirubin Test strip Ql (U)O rdered By: Pepito Cabrera on 11-24-2024 Bilirubin Ql (U) Negative Negative [facility] Bilirubin, totalOrdered By: Pepito Cabrera on 11-24-2024 Bilirubin [Mass/Vol] 0.40 mg/dL 0.20-1.00 [facility] Comment on above: For patients on eltr ombopag therapy, use of Dimension [place] TBIL is not recommended. Blood cultureOrdered By: Philippe Cabrera on 11-24-2024 Bacteria identified Cx Nom (Bld) Sphingomonas paucimobilis Abnormal [facility] Bacteria identified Cx Nom (Bld) No growth in 5 days. [facility] Blood manual differential co mment interpretation (narrative result)Ordered By: Pepito Cabrera on 11-24-2024 Manual differential comment Phan (Bld) [Interp] SCANNED [facility] Comment on above: AUTO DIFF OK Chest PA and Lateralon 11-24 Chest PA and Lateral [facility] Imaging Services [address] [place], [place] [id number] Chest PA and Lateral MR#: [id number] Acct: [id number] Name: JESS MEEKS Rep #: [id number] : 1965 F 59 From: Marshal Zamora PCP: Dr. Yung Valenzuela MD Status: [facility] ER Study: Chest PA and Lateral Date of Exam: 11/24/24 Exam# [id number] Ordering Dr: Pepito Cabrera MD PROCEDURE: CHEST PA AND LATERAL REASON FOR EXAM: Leukocytosis TECHNIQUE: Frontal and lateral views of the chest. COMPARISON: None. RAD/Chest PA and Lateral IMPRESSION: A spinal neurostimulator is seen, with tip at approximately the T7 level. Right upper quadrant abdominal surgical clips are noted. The lungs appear clear throughout. No pleural effusion or pneumothorax is evident. The cardiomediastinal silhouette is within the normal range. No evidence of acute cardiopulmonary disease. Reading Location: [address] CC: Dr. Pepito Cabrera MD; Dr. Yung Valenzuela MD Senior Planning Analyst: Signed Normal [facility] Coarse Granular Casts LM Ql (Urine sed)Ordered By: Pepito Cabrera on 11-24-2024 Urine Coarse Granular Casts 0-5 SEEN /lpf 0-5 /lpf [facility] Comprehensive Metabolic Prof ilon 11-24-2024 Albumin [Mass/Vol] 3.9 g/dL Normal 3.2-5.0 [facility] Comment on above: Performed By: #### L 501.5200, L500.4100, L100.0100, L500.4050, L501.9520, L501.9985 #### [facility] [address] [place], [address] Albumin/Globulin [Mass ratio] 1.1 {ratio} Normal 0.9-2.4 [facility] Comment on above: Performed By: #### L 501.5200, L500.4100, L100.0100, L500.4050, L501.9520, L501.9985 #### [facility] [address] [place], [address] ALK P 88 U/L Normal 45-117 [facility] Comment on above: Performed By: #### L 501.5200, L500.4100, L100.0100, L500.4050, L501.9520, L501.9985 #### [facility] [address] [place], [address] ALT [Catalytic activity/Vol] 62 U/L High 13-56 [facility] Comment on above: Performed By: #### L 501.5200, L500.4100, L100.0100, L500.4050, L501.9520, L501.9985 #### [facility] [address] [place], [address] AST [Catalytic activity/Vol] 47 U/L High 15-37 [facility] Comment on above: Performed By: #### L 501.5200, L500.4100, L100.0100, L500.4050, L501.9520, L501.9985 #### [facility] [address] [place], [address] Bilirubin [Mass/Vol] 0.40 mg/dL Normal 0.20-1.00 [facility] Comment on above: Result Comment: For patients on eltrombopag therapy, use of Dimension [place] TBIL is not recommended. Performed By: #### L 501.5200, L500.4100, L100.0100, L500.4050, L501.9520, L501.9985 #### [facility] [address] [place], [address] BUN/CRE 10.9 RATIO Normal 10-20 [facility] Comment on above: Performed By: #### L 501.5200, L500.4100, L100.0100, L500.4050, L501.9520, L501.9985 #### [facility] [address] [place], [address] CA,Total 9.7 mg/dL Normal 8.5-10.1 [facility] Comment on above: Performed By: #### L 501.5200, L500.4100, L100.0100, L500.4050, L501.9520, L501.9985 #### [facility] [address] [place], [address] Chloride [Moles/Vol] 106 mmol/L Normal 98-107 [facility] Comment on above: Performed By: #### L 501.5200, L500.4100, L100.0100, L500.4050, L501.9520, L501.9985 #### [facility] [address] [place], [address] CO2 [Moles/Vol] 21.0 mmol/L Normal 21.0-32.0 [facility] Comment on above: Performed By: #### L 501.5200, L500.4100, L100.0100, L500.4050, L501.9520, L501.9985 #### [facility] [address] [place], [address] Creatinine [Mass/Vol] 1.38 mg/dL High 0.55-1.02 [facility] Comment on above: Result Comment: The validity of the calculated GFR GFRAA in patients over 70 years has not been determined. Clinical correlation is essential. Performed By: #### L 501.5200, L500.4100, L100.0100, L500.4050, L501.9520, L501.9985 #### [facility] [address] [place], [address] ECRCL 47.69 ml/min Normal [facility] Comment on above: Performed By: #### L 501.5200, L500.4100, L100.0100, L500.4050, L501.9520, L501.9985 #### [facility] [address] [place], [address] EST GFR - AA 50 mL/min Low >60 [facility] Comment on above: Result Comment: Afri can Egyptian GFR Calc Performed By: #### L 501.5200, L500.4100, L100.0100, L500.4050, L501.9520, L501.9985 #### [facility] [address] [place], [address] GAP 11 Normal 5-15 [facility] Comment on above: Performed By: #### L 501.5200, L500.4100, L100.0100, L500.4050, L501.9520, L501.9985 #### [facility] [address] [place], [address] GFR/1.73 sq M.predicted among non-blacks MDRD (S/P/Bld) [Vol rate/Area] 41 mL/min/{1.73_m2} Low >60 [facility] Comment on above: Result Comment: Non- GFR Calc Performed By: #### L 501.5200, L500.4100, L100.0100, L500.4050, L501.9520, L501.9985 #### [facility] [address] [place], [address] Globulin (S) [Mass/Vol] 3.4 g/dL Normal 2.2-4.2 [facility] Comment on above: Performed By: #### L 501.5200, L500.4100, L100.0100, L500.4050, L501.9520, L501.9985 #### [facility] [address] [place], [address] Glucose [Mass/Vol] 265 mg/dL High 74-106 [facility] Comment on above: Result Comment: Gluc ose result greater than or equal to 200 mg/dL suggests DIABETES MELLITUS per A.D.A. criteria. Performed By: #### L 501.5200, L500.4100, L100.0100, L500.4050, L501.9520, L501.9985 #### [facility] [address] [place], [address] Potassium [Moles/Vol] 3.4 mmol/L Low 3.5-5.1 [facility] Comment on above: Performed By: #### L 501.5200, L500.4100, L100.0100, L500.4050, L501.9520, L501.9985 #### [facility] [address] [place], [address] Sodium [Moles/Vol] 138 mmol/L Normal 136-145 [facility] Comment on above: Performed By: #### L 501.5200, L500.4100, L100.0100, L500.4050, L501.9520, L501.9985 #### [facility] [address] [place], [place], [id number] T PROT 7.3 g/dL Normal 6.4-8.2 [facility] Comment on above: Performed By: #### L 501.5200, L500.4100, L100.0100, L500.4050, L501.9520, L501.9985 #### [facility] [address] [place], [place], [address] Urea nitrogen [Mass/Vol] 15 mg/dL Normal 7-18 [facility] Comment on above: Performed By: #### L 501.5200, L500.4100, L100.0100, L500.4050, L501.9520, L501.9985 #### [facility] [address] [place], [place], [id number] Emergency Department Summary on 11-24-2024 Emergency Department Summary [facility] Medical Records Department [address] [place] [address] Emergency Department Summary 11/24/24 MR#: [id number] Acct: [id number] Name: JESS MEEKS Rep #: [id number] : 1965 59 From: Pepito Cabrera MD PCP: Dr. Yung Valenzuela MD Status:ADM IN Location: [place] [address] HPI HPI - GI History of Present Illness Chief Complaint: Abd Pain Detail of Chief Complaint: With nausea no vomiting. No diarrhea. No fever. No dysuria. Informant: patient Abdominal Pain/Flank Pain Onset: Today and Hours Context: Gradual Onset Timing: Continuous Quality: Cramping Location: Diffuse Current Severity: Moderate Maximum Severity: Moderate Worsened by: Nothing Relieved by: Nothing Nausea/Vomiting/Emesis GI Symptom: Positive for Nausea; Negative for Vomiting Severity: Moderate Diarrhea/Melena/Hematochez ia GI Symptom: Negative for Diarrhea, Melena or Hematochezia Associated Symptoms Associated Symptoms: Negative for Dysuria, Frequency, Hematuria or Urgency Narrative Narrative: 59-year-old female history of hypertension. Prior cholecystectomy and hysterectomy prior back surgery was stimulator. States around 7 AM today she developed diffuse abdominal pain primarily cramping worse in the lower quadrants. Associated nausea but no vomiting or diarrhea. No fever. No dysuria. Said she felt well the last several days. Prior similar symptoms: No Recent Illness/Hospitalization: No PFSH PFSH Medical History (Updated 11/24/24 @ 15:[address] Pepito Cabrera MD) Anxiety Kidney disease GERD (gastroesophageal reflux disease) GI bleed CPAP (continuous positive airway pressure) dependence Former smoker Class 1 obesity with body mass index (BMI) of 33.0 to 33.9 in adult History of insomnia Obstructive sleep apnea on CPAP Acne rosacea PTSD (post-traumatic stress disorder) Depression Degenerative disc disease Chronic neck and back pain Limb weakness Hay fever Fatigue Diabetes Shoulder pain Hemorrhoids SOB (shortness of breath) Hypertension Arthritis Home Medications ???Medication ???Instructions ???Recorded ???Last Taken ???Type cetirizine 10 mg capsule (Zyrtec) 10 mg PO DAILY PRN allergy sympto ms 03/05/21 11/23/24 History rosuvastatin 5 mg tablet 5 mg PO DAILY 03/05/21 11/23/24 Hi story acetaminophen 650 mg 650 mg PO Q12H 06/05/21 Unknown Hi story tablet,extended release (Tylenol Arthritis Pain) multivitamin (One Daily 1 tab PO DAILY 06/05/21 11/23/24 H istory Multivitamin tablet) ipratropium bromide 21 mcg (0.03 1 spray intranasal BID-TID PRN 11/23/24 Rx %) nasal spray allergy symptoms #30 mL lisinopril 20 mg tablet 20 mg PO DAILY 12/29/23 11/23/24 H istory ascorbic acid (vitamin C) 500 mg 500 mg PO DAILY 11/24/24 11/23/24 History capsule calcium 600 mg (as 1 cap PO DAILY 11/24/24 11/23/24 H istory carbonate)-vitamin D3 5 mcg (200 unit) capsule (Calcium 600 + D(3)) calcium carbonate (Tums Extra 600 mg PO TID PRN dyspepsia 11/23/24 History Strength Smoothies) duloxetine 60 mg capsule,delayed 60 mg PO DAILY 11/24/24 11/23/24 H istory release metformin 500 mg tablet,extended 1,000 mg PO BID 11/24/24 11/23/24 History release 24 hr oxybutynin chloride 10 mg 10 mg PO DAILY 11/24/24 11/23/24 H istory tablet,extended release 24 hr zinc gluconate 50 mg tablet 50 mg PO DAILY 11/24/24 11/23/24 H istory Allergy/AdvReac Type Severity Reaction Status Date / Time naproxen Allergy Unknown hives Verified 11/24/24 10:06 bupropion (From Wellbutrin) AdvReac Unknown Diarrhea Verified 11/24/24 10:06 Family History Father Hypertension Myocardial infarction Arthritis Mother Diabetes Arthritis Kidney disease Sister Cancer Surgical History Hx of cholecystectomy H/O: hysterectomy History of spinal surgery Social History Smoking Status: Never smoker ROS ROS ED ROS Narrative Nausea. Abdominal pain. Constitutional Constitutional ED: Denies chills or fever(s) ENT ENT ED: Denies ear pain Cardiovascular Cardiovascular: Denies chest pain Respiratory/Chest Respiratory/Chest: Denies cough or dyspnea Gastrointestinal Gastrointestinal: Reports abdominal pain and nausea; Denies constipation, diarrhea, melena or vomiting Genitourinary Genitourinary ED: Denies dysuria or hematuria Musculoskeletal Musculoskeletal: Denies arthralgias Integumentary Denies abscess Neurologic Neurologic: Denies headache(s) Psychiatric Psychiatric: Denies anxiety Endocrine Endocrinology: Denies polydipsia or polyphagia Hematologic/Lymphatic Hematologic/Lymphatic: Denies easy bleeding, ea (more content not included)... Normal [facility] Eosinophil percentageOrdered By: Pepito Cabrera on 11-24-2024 Eosinophils/100 WBC (Bld) 0.6 % 0-5 [facility] Epithelial cells.squamous LM Ql (Urine sed)Ordered By: Pepito Cabrera on 11-24-2024 Epithelial cells.squamous LM.HPF (Urine sed) [#/Area] 0 /[HPF] 5-10 [facility] Glucose Ql (U)Ordered By: Gabo Cabrera on 11-24-2024 Urine Glucose (UA) Normal mg/dl Normal [facility] H AND P Exam - Hospitaliston 11-24-2024 H&P Exam - Hospitalist [facility] Medical Records Department [address] [place] [address] H P Exam - Hospitalist 11/24/24 1458 MR#: [id number] Acct: [id number] Name: JESS MEEKS Rep #: [id number] : 1965 59 From: Kofi Puckett DO PCP: Dr. Yung Valenzuela MD Status:ADM IN Location: [facility] GRW406-5 HPI - General General Date of Admission: 11/24/24 Date of Service: 11/24/24 Chief Complaint: Worsening abdominal pain HPI Narrative JESS MEEKS, is a 59 F who presented to [facility] ED on 11/24/2024 with worsening abdominal pain. Patient has had intermittent diarrhea over the past few months. She is on metformin for diabetes and her primary care doctor discontinued the metformin. She states this initially helped with her diarrhea but then the diarrhea returned 3 days ago. She took Imodium for this and had not had a bowel movement since then. She felt somewhat distended yesterday and took an [id number] laxative without much improvement. This morning she noted abdominal discomfort with cramping primarily in the lower quadrants. She did have nausea associated with this but no vomiting or diarrhea. She denies any recent fevers or chills. Denies any UTI symptoms. She does often feel thirsty at baseline but denies increased urination. Does not check her sugars at home but was told by her PCP that her sugar was in the low 300s when she saw him about a week ago. In the ED she was borderline hypotensive but otherwise hemodynamically stable on room air. Labs notable for WBC count 21, potassium 3.4, creatinine 1.38 (baseline around 0.7), glucose 265, lactate 3.5. UA showed 25 leukocyte esterase, negative nitrites, 3+ bacteria. Chest x-ray was unremarkable. CT abdomen pelvis with IV contrast showed a large amount of fecal material in the colon and fatty infiltration of the liver, was otherwise unremarkable. Given these findings, hospitalist was contacted for admission. I saw the patient at bedside in the ED, was present. Patient was mildly fatigued appearing and mildly uncomfortable appearing due to ongoing abdominal discomfort. She otherwise was sitting up in bed and conversing normally. Stated that she finally had a bowel movement that was soft but there was some blood noted in the bowel movement. Denies any history of bloody bowel movements. She denies any lightheadedness or dizziness. Last colonoscopy was 2 to 3 years ago and showed a few polyps as previous colonoscopies had but there was no significant concern. She does report feeling dry in exam despite receiving 2 bags of IV fluids thus far and was drinking water when I saw her. Denies any fevers or chills. No other acute concerns at this time. [facility] Medical History (Updated 11/24/24 @ 15:[address] Pepito Cabrera MD) Anxiety Kidney disease GERD (gastroesophageal reflux disease) GI bleed CPAP (continuous positive airway pressure) dependence Former smoker Class 1 obesity with body mass index (BMI) of 33.0 to 33.9 in adult History of insomnia Obstructive sleep apnea on CPAP Acne rosacea PTSD (post-traumatic stress disorder) Depression Degenerative disc disease Chronic neck and back pain Limb weakness Hay fever Fatigue Diabetes Shoulder pain Hemorrhoids SOB (shortness of breath) Hypertension Arthritis Home Medications ???Medication ???Instructions ???Recorded ???Last Taken ???Type cetirizine 10 mg capsule (Zyrtec) 10 mg PO DAILY PRN allergy sympto ms 03/05/21 11/23/24 History rosuvastatin 5 mg tablet 5 mg PO DAILY 03/05/21 11/23/24 Hi story acetaminophen 650 mg 650 mg PO Q12H 06/05/21 Unknown Hi story tablet,extended release (Tylenol Arthritis Pain) multivitamin (One Daily 1 tab PO DAILY 06/05/21 11/23/24 H istory Multivitamin tablet) ipratropium bromide 21 mcg (0.03 1 spray intranasal BID-TID PRN 11/23/24 Rx %) nasal spray allergy symptoms #30 mL lisinopril 20 mg tablet 20 mg PO DAILY 12/29/23 11/23/24 H istory ascorbic acid (vitamin C) 500 mg 500 mg PO DAILY 11/24/24 11/23/24 History capsule calcium 600 mg (as 1 cap PO DAILY 11/24/24 11/23/24 H istory carbonate)-vitamin D3 5 mcg (200 unit) capsule (Calcium 600 + D(3)) calcium carbonate (Tums Extra 600 mg PO TID PRN dyspepsia 11/23/24 History Strength Smoothies) duloxetine 60 mg capsule,delayed 60 mg PO DAILY 11/24/24 11/23/24 H istory release metformin 500 mg tablet,extended 1,000 mg PO BID 11/24/24 11/23/24 History release 24 hr oxybutynin chloride 10 mg 10 mg PO DAILY 11/24/24 11/23/24 H istory tablet,extended release 24 hr zinc gluconate 50 mg tablet 50 mg PO DAILY 11/24/24 11/23/24 H istory Allergy/AdvReac Type Severity Reaction Status Date / Time naproxen Allergy Unknown hives Verified 11/24/24 10:06 bupropion (From Wellbutrin) AdvReac (more content not included)... Normal [facility] Hemoglobin A1con 11-24-2024 HbA1c (Bld) [Mass fraction] 6.7 % High 3.8-5.6 [facility] Comment on above: Result Comment: Norm al < 5.7 % Prediabetic 5.7 - 6.4 % Diabetic >or= 6.5 % Please note range changes. Performed By: #### L 501.9985 ####[facility] [id number] [place], [place], [id number] Hemoglobin A1c percentageOrd ered By: Kofi Puckett on 11-24-2024 HbA1c (Bld) [Mass fraction] 6.7 % High 3.8-5.6 [facility] Comment on above: Normal < 5.7 % Predi abetic 5.7 - 6.4 % Diabetic >or= 6.5 % Please note range changes. Hyaline casts LM.LPF (Urine sed) [#/Area]Ordered By: Pepito Cabrera on 11-24-2024 Hyaline casts (Urine sed) [#/Area] 0 /[LPF] 0-5 [facility] Hyaline casts LM Ql (Urine sed) 0-5 SEEN /lpf 0-5 [facility] Immature granulocytes/100 WB C Auto (Bld)Ordered By: Pepito Cabrera on 11-24-2024 Immature granulocytes/100 WBC (Bld) 1.200 % High 0.0-0.9 [facility] Comment on above: IG% - Immature Granu locytes (promyelocytes, myelocytes and metamyelocytes) > 1% indicates that a LEFT SHIFT is Present. Ketones Test strip Ql (U)Ord ered By: Pepito Cabrera on 11-24-2024 Ketones Ql (U) Negative Negative [facility] Laboratory - Chemistry and C hemistry - challengeOrdered By: Pepito Cabrera on 11-24-2024 AST [Catalytic activity/Vol] 47 U/L High 15-37 [facility] Lactic Acidon 11-24-2024 Lactate [Moles/Vol] 2.4 mmol/L Invalid Interpretation Code 0.4-1.9 [facility] Comment on above: Order Comment: Order Date: 01/26/25 Order Info: [id number] - CMP Order Info: [id number] - LIPID Order Info: [id number] - MG Order Info: 3016-3 - TSH Result Comment: Crit ical Result(s) Called at: 23:34:48 11/24/2024 by: DEBBIE HENRY TO SHAHEEN JARA. Results read back by same. Performed By: #### L 501.5200, L500.4100, L100.0100, L500.4050, L501.9520, L501.9985 #### [facility] [address] [place], [address] Lactate [Moles/Vol] 4.2 mmol/L Invalid Interpretation Code 0.4-1.9 [facility] Comment on above: Result Comment: Crit ical Result(s) Called at: 18:28:24 11/24/2024 by: NEIL ABREU. Results read back by PROFESSOR OF PUBLIC ADMINISTRATION Performed By: #### L 501.5200, L500.4100, L100.0100, L500.4050, L501.9520, L501.9985 #### [facility] [address] [place], [place], [id number] Lactate [Moles/Vol] 3.5 mmol/L Invalid Interpretation Code 0.4-1.9 [facility] Comment on above: Order Comment: Order Date: 01/26/25 Order Info: [id number] - CBCD Result Comment: Crit ical Result(s) Called at: 14:16:55 11/24/2024 by: Bari Galo to Mirian JAMISON (ER). Results read back by same. Performed By: #### L 501.5200, L500.4100, L100.0100, L500.4050, L501.9520, L501.9985 #### [facility] [address] [place], [place], [id number] Lipaseon 11-24-2024 Lipase [Catalytic activity/Vol] 76 U/L High 13-75 [facility] Comment on above: Result Comment: Plea se note: LIPASE revised reference range effective 23. New Lipase methodology. Expected to produce lower values than the previous assay method. NEW Reference Range: 13 - 75 U/L Performed By: #### L 501.5200, L500.4100, L100.0100, L500.4050, L501.9520, L501.9985 #### [facility] [address] [place], [place], [id number] Lipase measurementOrdered By : Pepito Cabrera on 11-24-2024 Lipase [Catalytic activity/Vol] 76 U/L High 13-75 [facility] Comment on above: Please note:LIPASE r evised reference range effective 23. New Lipase methodology. Expected to produce lower values than the previous assay method. NEW Reference Range: 13 - 75 U/L Lymphocytes Auto (Unsp spec) [#/Vol]Ordered By: Pepito Cabrera on 11-24-2024 Lymphocytes (Bld) [#/Vol] 3.49 10*3/uL 0.83-4.51 [facility] Lymphocytes/100 WBC Auto (Un sp spec)Ordered By: Pepito Cabrera on 11-24-2024 Lymphocytes/100 WBC (Bld) 16.2 % Low 19-41 [facility] Manual differential comment Phan (Bld) [Interp]Ordered By: Pepito Cabrera on 11-24-2024 Differential Comment SCANNED [facility] Comment on above: AUTO DIFF OK Microscopic analysis of urin e for red blood cells (RBC)Ordered By: Pepito Cabrera on 11-24-2024 Microscopic analysis of urine for red blood cells (RBC) 0-5 SEEN /hpf 0-5 [facility] Urine RBC 0-5 SEEN /hpf 0-5 [facility] Monocyte percentageOrdered B y: Pepito Cabrera on 11-24-2024 Monocytes/100 WBC (Bld) 7.0 % 0-10 [facility] Mucus LM Ql (Urine sed)Order ed By: Pepito Cabrera on 11-24-2024 Mucus Ql (Urine sed) RARE /hpf [facility] Neutrophil percentageOrdered By: Pepito Cabrera on 11-24-2024 Neutrophils/100 WBC (Bld) 74.5 % High 47-70 [facility] Nitrite Test strip Ql (U)Ord ered By: Pepito Cabrera on 11-24-2024 Nitrite Ql (U) Negative Negative [facility] Nucleated red blood cell per centageOrdered By: Pepito Cabrera on 11-24-2024 Nucleated RBC/100 WBC (Bld) [Ratio] 0 % 0-5 [facility] Pathologist review Phan (Unsp spec) [Interp]Ordered By: Pepito Cabrera on 11-24-2024 Differential Pathologist's Review Reviewed [facility] Comment on above: Previous reported re sult: Lashay pressley Edited by: SHILOH on 11/25/24:1503Neutrophilic leukocytosis.Clinical correlation necessary.Mon[place] M.D. 11/25/24 AMENDED REPORT 11/25/24 1503 PATH REV previously reported as: Lashay pressley Protein Test strip Ql (U)Ord ered By: Pepito Cabrera on 11-24-2024 Protein Ql (U) 30 mg/dl High Negative [facility] Review by pathologistOrdered By: Pepito Cabrera on 11-24-2024 Pathologist review Phan (Unsp spec) [Interp] Reviewed [facility] Comment on above: Previous reported re sult: May huan Edited by: SHILOH on 11/25/24:1503Neutrophilic leukocytosis.Clinical correlation necessary.Monroe Spring M.D. 11/25/24 AMENDED REPORT 11/25/24 1503 PATH REV previously reported as: Lashay pressley Serum globulin measurementOr dered By: Pepito Cabrera on 11-24-2024 Globulin (S) [Mass/Vol] 3.4 g/dL 2.2-4.2 [facility] Serum or plasma alanine sutherland otransferase (ALT) measurementOrdered By: Pepito Cabrera on 11-24-2024 ALT [Catalytic activity/Vol] 62 U/L High 13-56 [facility] Serum or plasma albumin jethro urement (mass/volume)Ordered By: Pepito Cabrera on 11-24-2024 Albumin [Mass/Vol] 3.9 g/dL 3.2-5.0 [facility] Serum or plasma alkaline wilver sphatase measurementOrdered By: Pepito Cabrera on 11-24-2024 ALP [Catalytic activity/Vol] 88 U/L 45-117 [facility] Squamous epithelial cells de tection in urine sediment by light microscopyOrdered By: Pepito Cabrera on 11-24-2024 Epithelial cells.squamous LM Ql (Urine sed) 0-5 SEEN /hpf 5- [facility] Total proteinOrdered By: Philippe Cabrera on 11-24-2024 Protein [Mass/Vol] 7.3 g/dL 6.4-8.2 [facility] Urinalysis, Completeon 11-24 CAST,HYALINE 0-5 SEEN Normal 0-5 [facility] Comment on above: Order Comment: Order Date: 01/26/25 Order Info: 0184-1 - CBCD Performed By: #### L 501.5200, L500.4100, L100.0100, L500.4050, L501.9520, L501.9985 #### [facility] [address] [place], [place], [address] EPI,SQUAMOUS 0-5 SEEN Normal -10 [facility] Comment on above: Order Comment: Order Date: 01/26/25 Order Info: 0184-1 - CBCD Performed By: #### L 501.5200, L500.4100, L100.0100, L500.4050, L501.9520, L501.9985 #### [facility] [address] [place], [address] BACTERIA 3+ /hpf Normal None Seen [facility] Comment on above: Order Comment: Order Date: 01/26/25 Order Info: 0184-1 - CBCD Performed By: #### L 501.5200, L500.4100, L100.0100, L500.4050, L501.9520, L501.9985 #### [facility] [address] [place], [address] CAST,COARSE GR 0-5 SEEN Normal 0-5 /lpf [facility] Comment on above: Order Comment: Order Date: 01/26/25 Order Info: [id number]- - CBCD Performed By: #### L 501.5200, L500.4100, L100.0100, L500.4050, L501.9520, L501.9985 #### [facility] [address] [place], [address] Mucus Ql (Urine sed) RARE Normal [facility] Comment on above: Order Comment: Order Date: 01/26/25 Order Info: 0184- - CBCD Performed By: #### L 501.5200, L500.4100, L100.0100, L500.4050, L501.9520, L501.9985 #### [facility] [address] [place], [address] RBC 0-5 SEEN Normal 0-5 [facility] Comment on above: Order Comment: Order Date: 01/26/25 Order Info: 0184- - CBCD Performed By: #### L 501.5200, L500.4100, L100.0100, L500.4050, L501.9520, L501.9985 #### [facility] [address] [place], [address] WBC 5-10 SEEN Normal 0-5 [facility] Comment on above: Order Comment: Order Date: 01/26/25 Order Info: 0184-1 - CBCD Performed By: #### L 501.5200, L500.4100, L100.0100, L500.4050, L501.9520, L501.9951 #### [facility] [address] [place], [place], [id number] Urine blood detectionOrdered By: Pepito Cabrera on 11-24-2024 Urine Occult Blood 10 /ul High Negative [facility] Urine clarityOrdered By: Philippe Cabrera on 11-24-2024 Clarity (U) Clear Clear [facility] Urine coarse granular cast d etectionOrdered By: Pepito Cabrera on 11-24-2024 Coarse Granular Casts LM Ql (Urine sed) 0-5 SEEN /lpf 0-5 /lpf [facility] Urine color determinationOrd ered By: Pepito Cabrera on 11-24-2024 Color (U) Yellow Yellow [facility] Urine cultureOrdered By: Philippe Cabrera on 11-24-2024 Bacteria identified Cx Nom (U) Streptococcus agalactiae (B) Abnormal [facility] Urine glucose detectionOrder ed By: Pepito Cabrera on 11-24-2024 Glucose Ql (U) Normal mg/dl Normal [facility] Urine leukocyte esterase det ection by dipstickOrdered By: Pepito Cabrera on 11-24-2024 Leukocyte esterase Test strip Ql (U) 25 /ul High Negative [facility] Urine pHOrdered By: Pepito Nguyen ghalexandro on 11-24-2024 pH (U) 6.0 [pH] 5.0 - 8.0 [facility] Urine sediment bacteria coun t by microscopy (number/high power field)Ordered By: Pepito Cabrera on 11-24-2024 Bacteria LM.HPF (Urine sed) [#/Area] 3 /[HPF] None Seen [facility] Urine specific gravity measu rementOrdered By: Pepito Cabrera on 11-24-2024 Specific gravity (U) [Rel density] 1.010 1.002-1.03 0 [facility] Urine urobilinogen measureme ntOrdered By: Pepito Cabrera on 11-24-2024 Urobilinogen Ql (U) Normal mg/dl Normal [facility] Urobilinogen Ql (U)Ordered B y: Pepito Rick on 11-24-2024 Urine Urobilinogen Normal mg/dl Normal [facility] White blood cell countOrdere d By: Pepito Rick on 11-24-2024 Urine WBC 5-10 SEEN /hpf 0-5 [facility] White blood cell count 5-10 SEEN /hpf 0-5 [facility] Vitamin B1, Thiamineon 10-30 VIT B1 THIAMINE 243.3 nmol/L High 66.5-200.0 [facility] Comment on above: Order Comment: Test( s) 481189-Rck. B1, Whole Bloodwas developed and its performance characteristicsdetermined by [facility]. It has not been cleared or approvedby the Food and Drug Administration. Result Comment: Perf ormed at: - [facility] [address] [id number] Physical Therapy Manager: Purvi Sharma MD, Phone: [phone] Performed By: #### L 501.6680, L3300.8000 ####[facility] [address] [place], [address] 57-[id number]-Gkpxhsy DOrdered By: Victor M Valenzuela on 10-25-2024 Vitamin D 25-Hydroxy 41.8 ng/mL [facility] Comment on above: Vitamin D 25(OH) Sta tus Range Deficiency <20 ng/mL (50nmol/L) Insufficiency 20 - 30 ng/mL (50 - 75 nmol/L) Sufficiency 30 - 100 ng/mL (75 - 250 nmol/L) Toxicity >100 ng/mL (>250 nmol/L) Absolute neutrophil countOrd ered By: Yung Valenzuela on 10-25-2024 Neutrophils (Bld) [#/Vol] 4.9 10*3/uL 2.0-7.7 [facility] Albumin to globulin ratioOrd ered By: Yung Valenzuela on 10-25-2024 Albumin/Globulin [Mass ratio] 1.2 {ratio} 0.9-2.4 [facility] Basophil percentageOrdered B y: Yung Valenzuela on 10-25-2024 Basophils/100 WBC (Bld) 0.6 % 0-1 [facility] Bilirubin, totalOrdered By: Yung Valenzuela on 10-25-2024 Bilirubin [Mass/Vol] 0.30 mg/dL 0.20-1.00 [facility] Comment on above: For patients on eltr ombopag therapy, use of Dimension [place] TBIL is not recommended. Blood urea nitrogen (BUN)/cr eatinine ratioOrdered By: Yung Valenzuela on 10-25-2024 Urea nitrogen/Creatinine [Mass ratio] 20.7 mg/mg High 10-20 [facility] CBC W/Diff, Automatedon 12- Absolute Lymph 2.46 X10 3/uL Normal 0.83-4.51 [facility] Comment on above: Order Comment: Order Date: 01/26/25 Order Info: 0184-1 - CBCD Performed By: #### L 501.5200, L500.4100, L100.0100, L500.4050, L501.9520, L501.9985 #### [facility] [address] [place], [address] Absolute Neut 4.9 X10 3/uL Normal 2.0-7.7 [facility] Comment on above: Order Comment: Order Date: 01/26/25 Order Info: 0184-1 - CBCD Performed By: #### L 501.5200, L500.4100, L100.0100, L500.4050, L501.9520, L501.9985 #### [facility] [address] [place], [address] Basophils/100 WBC (Bld) 0.6 % Normal 0-1 [facility] Comment on above: Order Comment: Order Date: 01/26/25 Order Info: 0184-1 - CBCD Performed By: #### L 501.5200, L500.4100, L100.0100, L500.4050, L501.9520, L501.9985 #### [facility] [address] [place], [address] Eosinophils/100 WBC (Bld) 3.1 % Normal 0-5 [facility] Comment on above: Order Comment: Order Date: 01/26/25 Order Info: 0184-1 - CBCD Performed By: #### L 501.5200, L500.4100, L100.0100, L500.4050, L501.9520, L501.9985 #### [facility] [address] [place], [address] Erythrocyte distribution width (RBC) [Ratio] 13.3 % Normal 11.6-14.6 [facility] Comment on above: Order Comment: Order Date: 01/26/25 Order Info: 0184-1 - CBCD Performed By: #### L 501.5200, L500.4100, L100.0100, L500.4050, L501.9520, L501.9985 #### [facility] [address] [place], [address] Hematocrit (Bld) [Volume fraction] 38.8 % Normal 37-47 [facility] Comment on above: Order Comment: Order Date: 01/26/25 Order Info: 0184-1 - CBCD Performed By: #### L 501.5200, L500.4100, L100.0100, L500.4050, L501.9520, L501.9985 #### [facility] [address] [place], [address] Hemoglobin (Bld) [Mass/Vol] 12.6 g/dL Normal 12.0-15.0 [facility] Comment on above: Order Comment: Order Date: 01/26/25 Order Info: 0184-1 - CBCD Performed By: #### L 501.5200, L500.4100, L100.0100, L500.4050, L501.9520, L501.9985 #### [facility] [address] [place], [address] IG% 0.700 Normal 0.0-0.9 [facility] Comment on above: Order Comment: Order Date: 01/26/25 Order Info: 0184-1 - CBCD Result Comment: IG% - Immature Granulocytes (promyelocytes, myelocytes and metamyelocytes) > 1% indicates that a LEFT SHIFT is Present. Performed By: #### L 501.5200, L500.4100, L100.0100, L500.4050, L501.9520, L501.9985 #### [facility] [address] [place], [address] Lymphocytes/100 WBC (Bld) 28.9 % Normal 19-41 [facility] Comment on above: Order Comment: Order Date: 01/26/25 Order Info: 0184-1 - CBCD Performed By: #### L 501.5200, L500.4100, L100.0100, L500.4050, L501.9520, L501.9985 #### [facility] [address] [place], [address] MCH (RBC) [Entitic mass] 27.8 pg Normal 27.0-32.0 [facility] Comment on above: Order Comment: Order Date: 01/26/25 Order Info: 0184-1 - CBCD Performed By: #### L 501.5200, L500.4100, L100.0100, L500.4050, L501.9520, L501.9985 #### [facility] [address] [place], [address] MCHC (RBC) [Mass/Vol] 32.5 g/dL Normal 32-36 [facility] Comment on above: Order Comment: Order Date: 01/26/25 Order Info: 0184-1 - CBCD Performed By: #### L 501.5200, L500.4100, L100.0100, L500.4050, L501.9520, L501.9985 #### [facility] [address] [place], [address] MCV (RBC) [Entitic vol] 85.5 fL Normal 81-99 [facility] Comment on above: Order Comment: Order Date: 01/26/25 Order Info: 0184-1 - CBCD Performed By: #### L 501.5200, L500.4100, L100.0100, L500.4050, L501.9520, L501.9985 #### [facility] [address] [place], [address] Monocytes/100 WBC (Bld) 8.9 % Normal 0-10 [facility] Comment on above: Order Comment: Order Date: 01/26/25 Order Info: 0184-1 - CBCD Performed By: #### L 501.5200, L500.4100, L100.0100, L500.4050, L501.9520, L501.9985 #### [facility] [address] [place], [address] Neutrophils/100 WBC (Bld) 57.8 % Normal 47-70 [facility] Comment on above: Order Comment: Order Date: 01/26/25 Order Info: 0184-1 - CBCD Performed By: #### L 501.5200, L500.4100, L100.0100, L500.4050, L501.9520, L501.9985 #### [facility] [address] [place], [address] Nucleated RBC (Bld) [#/Vol] 0 10*3/uL Normal 0-5 [facility] Comment on above: Order Comment: Order Date: 01/26/25 Order Info: 0184-1 - CBCD Performed By: #### L 501.5200, L500.4100, L100.0100, L500.4050, L501.9520, L501.9985 #### [facility] [address] [place], [address] Platelet mean volume (Bld) [Entitic vol] 10.9 fL Normal 6.2-12.0 [facility] Comment on above: Order Comment: Order Date: 01/26/25 Order Info: 0184-1 - CBCD Performed By: #### L 501.5200, L500.4100, L100.0100, L500.4050, L501.9520, L501.9985 #### [facility] [address] [place], [address] Platelets (Bld) [#/Vol] 298 10*3/uL Normal 150-450 [facility] Comment on above: Order Comment: Order Date: 01/26/25 Order Info: 0184-1 - CBCD Performed By: #### L 501.5200, L500.4100, L100.0100, L500.4050, L501.9520, L501.9985 #### [facility] [address] [place], [address] RBC (Bld) [#/Vol] 4.54 10*6/uL Normal 4.2-5.4 [facility] Comment on above: Order Comment: Order Date: 01/26/25 Order Info: 0184-1 - CBCD Performed By: #### L 501.5200, L500.4100, L100.0100, L500.4050, L501.9520, L501.9985 #### [facility] [address] [place], [address] RDW SD 41.2 fl Normal 35.1-43.9 [facility] Comment on above: Order Comment: Order Date: 01/26/25 Order Info: 0184-1 - CBCD Performed By: #### L 501.5200, L500.4100, L100.0100, L500.4050, L501.9520, L501.9985 #### [facility] [address] [place], [address] WBC (Bld) [#/Vol] 8.5 10*3/uL Normal 4.4-11.0 [facility] Comment on above: Order Comment: Order Date: 01/26/25 Order Info: 0184-1 - CBCD Performed By: #### L 501.5200, L500.4100, L100.0100, L500.4050, L501.9520, L501.9985 #### [facility] [address] [place], [address] Carbon dioxide measurementOr dered By: Yung Valenzuela on 10-25-2024 CO2 [Moles/Vol] 25.0 mmol/L 21.0-32.0 [facility] Chloride measurementOrdered By: Yung Valenzuela on 10-25-2024 Chloride [Moles/Vol] 104 mmol/L 98-107 [facility] Comprehensive Metabolic Prof ilon 10-25-2024 Albumin [Mass/Vol] 3.9 g/dL Normal 3.2-5.0 [facility] Comment on above: Order Comment: Order Date: 01/26/25 Order Info: 4548-4 - A1C Performed By: #### L 501.5200, L500.4100, L100.0100, L500.4050, L501.9520, L501.9985 #### [facility] [address] [place], [address] Albumin/Globulin [Mass ratio] 1.2 {ratio} Normal 0.9-2.4 [facility] Comment on above: Order Comment: Order Date: 01/26/25 Order Info: 4548-4 - A1C Performed By: #### L 501.5200, L500.4100, L100.0100, L500.4050, L501.9520, L501.9985 #### [facility] [address] [place], [address] ALK P 78 U/L Normal 45-117 [facility] Comment on above: Order Comment: Order Date: 01/26/25 Order Info: 4548-4 - A1C Performed By: #### L 501.5200, L500.4100, L100.0100, L500.4050, L501.9520, L501.9985 #### [facility] [address] [place], [address] ALT [Catalytic activity/Vol] 68 U/L High 13-56 [facility] Comment on above: Order Comment: Order Date: 01/26/25 Order Info: 4548-4 - A1C Performed By: #### L 501.5200, L500.4100, L100.0100, L500.4050, L501.9520, L501.9985 #### [facility] [address] [place], [address] AST [Catalytic activity/Vol] 50 U/L High 15-37 [facility] Comment on above: Order Comment: Order Date: 01/26/25 Order Info: 4548-4 - A1C Performed By: #### L 501.5200, L500.4100, L100.0100, L500.4050, L501.9520, L501.9985 #### [facility] [address] [place], [address] Bilirubin [Mass/Vol] 0.30 mg/dL Normal 0.20-1.00 [facility] Comment on above: Order Comment: Order Date: 01/26/25 Order Info: 4548-4 - A1C Result Comment: For patients on eltrombopag therapy, use of Dimension [place] TBIL is not recommended. Performed By: #### L 501.5200, L500.4100, L100.0100, L500.4050, L501.9520, L501.9985 #### [facility] [address] [place], [address] BUN/CRE 20.7 RATIO High 10-20 [facility] Comment on above: Order Comment: Order Date: 01/26/25 Order Info: 4548-4 - A1C Performed By: #### L 501.5200, L500.4100, L100.0100, L500.4050, L501.9520, L501.9985 #### [facility] [address] [place], [address] CA,Total 9.5 mg/dL Normal 8.5-10.1 [facility] Comment on above: Order Comment: Order Date: 01/26/25 Order Info: 4548-4 - A1C Performed By: #### L 501.5200, L500.4100, L100.0100, L500.4050, L501.9520, L501.9985 #### [facility] [address] [place], [address] Chloride [Moles/Vol] 104 mmol/L Normal 98-107 [facility] Comment on above: Order Comment: Order Date: 01/26/25 Order Info: 4548-4 - A1C Performed By: #### L 501.5200, L500.4100, L100.0100, L500.4050, L501.9520, L501.9985 #### [facility] [address] [place], [address] CO2 [Moles/Vol] 25.0 mmol/L Normal 21.0-32.0 [facility] Comment on above: Order Comment: Order Date: 01/26/25 Order Info: 4548-4 - A1C Performed By: #### L 501.5200, L500.4100, L100.0100, L500.4050, L501.9520, L501.9985 #### [facility] [address] [place], [address] Creatinine [Mass/Vol] 0.77 mg/dL Normal 0.55-1.02 [facility] Comment on above: Order Comment: Order Date: 01/26/25 Order Info: 4548-4 - A1C Result Comment: The validity of the calculated GFR GFRAA in patients over 70 years has not been determined. Clinical correlation is essential. Performed By: #### L 501.5200, L500.4100, L100.0100, L500.4050, L501.9520, L501.9985 #### [facility] [address] [place], [address] EST GFR - AA 97 mL/min Normal >60 [facility] Comment on above: Order Comment: Order Date: 01/26/25 Order Info: 4548-4 - A1C Result Comment: Afri can Egyptian GFR Calc Performed By: #### L 501.5200, L500.4100, L100.0100, L500.4050, L501.9520, L501.9985 #### [facility] [address] [place], [address] GAP 11 Normal 5-15 [facility] Comment on above: Order Comment: Order Date: 01/26/25 Order Info: 4548-4 - A1C Performed By: #### L 501.5200, L500.4100, L100.0100, L500.4050, L501.9520, L501.9985 #### [facility] [address] [place], [address] GFR/1.73 sq M.predicted among non-blacks MDRD (S/P/Bld) [Vol rate/Area] 81 mL/min/{1.73_m2} Normal >60 [facility] Comment on above: Order Comment: Order Date: 01/26/25 Order Info: 4548-4 - A1C Result Comment: Non- GFR Calc Performed By: #### L 501.5200, L500.4100, L100.0100, L500.4050, L501.9520, L501.9985 #### [facility] [address] [place], [address] Globulin (S) [Mass/Vol] 3.2 g/dL Normal 2.2-4.2 [facility] Comment on above: Order Comment: Order Date: 01/26/25 Order Info: 4548-4 - A1C Performed By: #### L 501.5200, L500.4100, L100.0100, L500.4050, L501.9520, L501.9985 #### [facility] [address] [place], [address] Glucose [Mass/Vol] 161 mg/dL High 74-106 [facility] Comment on above: Order Comment: Order Date: 01/26/25 Order Info: 4548-4 - A1C Result Comment: Fast ing Glucose result greater than or equal to 126 mg/dL suggests DIABETES MELLITUS per A.D.A. criteria. Performed By: #### L 501.5200, L500.4100, L100.0100, L500.4050, L501.9520, L501.9985 #### [facility] [address] [place], [address] Potassium [Moles/Vol] 3.9 mmol/L Normal 3.5-5.1 [facility] Comment on above: Order Comment: Order Date: 01/26/25 Order Info: 4548-4 - A1C Performed By: #### L 501.5200, L500.4100, L100.0100, L500.4050, L501.9520, L501.9985 #### [facility] [address] [place], [address] Sodium [Moles/Vol] 140 mmol/L Normal 136-145 [facility] Comment on above: Order Comment: Order Date: 01/26/25 Order Info: 4548-4 - A1C Performed By: #### L 501.5200, L500.4100, L100.0100, L500.4050, L501.9520, L501.9985 #### [facility] [address] [place], [address] T PROT 7.1 g/dL Normal 6.4-8.2 [facility] Comment on above: Order Comment: Order Date: 01/26/25 Order Info: 4548-4 - A1C Performed By: #### L 501.5200, L500.4100, L100.0100, L500.4050, L501.9520, L501.9985 #### [facility] [address] [place], [place], [address] Urea nitrogen [Mass/Vol] 16 mg/dL Normal 7-18 [facility] Comment on above: Order Comment: Order Date: 01/26/25 Order Info: 4548-4 - A1C Performed By: #### L 501.5200, L500.4100, L100.0100, L500.4050, L501.9520, L501.9985 #### [facility] [address] [place], [address] Eosinophil percentageOrdered By: Yung Valenzuela on 10-25-2024 Eosinophils/100 WBC (Bld) 3.1 % 0-5 [facility] Erythrocyte distribution wid th ratioOrdered By: Yung Valenzuela on 10-25-2024 Erythrocyte distribution width (RBC) [Ratio] 13.3 % 11.6-14.6 [facility] Erythrocyte distribution wid th standard deviationOrdered By: Yung Valenzuela on 10-25-2024 Erythrocyte distribution width (RBC) [Entitic vol] 41.2 fL 35.1-43.9 [facility] Estimated glomerular filtrat ion rate (GFR) AmericanOrdered By: Yung Valenzuela on 10-25-2024 Estimated GFR (MDRD) Amer 97 mL/min >60 [facility] Comment on above: GFR Calc Glomerular filtration rate ( GFR) estimationOrdered By: Yung Valenzuela on 10-25-2024 Estimated GFR (MDRD) Non-Af Amer 81 mL/min >60 [facility] Comment on above: Non- GFR Calc Glucose measurementOrdered B y: Yung Valenzuela on 10-25-2024 Glucose [Mass/Vol] 161 mg/dL High 74-106 [facility] Comment on above: Fasting Glucose resu lt greater than or equal to 126 mg/dL suggests DIABETES MELLITUS per A.D.A. criteria. Hematocrit Auto (Bld) [Volum e fraction]Ordered By: Yung Valenzuela on 10-25-2024 Hematocrit (Bld) [Volume fraction] 38.8 % 37-47 [facility] Hemoglobin A1con 10-25-2024 HbA1c (Bld) [Mass fraction] 6.7 % High 3.8-5.6 [facility] Comment on above: Order Comment: Order Date: 01/26/25 Order Info: 4548-4 - A1C Result Comment: Norm al < 5.7 % Prediabetic 5.7 - 6.4 % Diabetic >or= 6.5 % Please note range changes. Performed By: #### L 501.5200, L500.4100, L100.0100, L500.4050, L501.9520, L501.9985 #### [facility] [address] [place], [address] Hemoglobin A1c percentageOrd ered By: Yung Valenzuela on 10-25-2024 HbA1c (Bld) [Mass fraction] 6.7 % High 3.8-5.6 [facility] Comment on above: Normal < 5.7 % Predi abetic 5.7 - 6.4 % Diabetic >or= 6.5 % Please note range changes. Hemoglobin measurementOrdere d By: Yung Valenzuela on 10-25-2024 Hemoglobin (Bld) [Mass/Vol] 12.6 g/dL 12.0-15.0 [facility] High density lipoprotein (HD L) measurementOrdered By: Yung Valenzuela on 10-25-2024 Cholesterol in HDL [Mass/Vol] 43 mg/dL >40 [facility] Comment on above: The drugs N-Acetylcy steine and Metamizole may falsely depress this assay. Reference Range HDL <40 mg/dL Low HDL Cholesterol HDL >or= 60 mg/dL High HDL Cholesterol Immature granulocytes/100 WB C Auto (Bld)Ordered By: Yung Valenzuela on 10-25-2024 Immature granulocytes/100 WBC (Bld) 0.700 % 0.0-0.9 [facility] Comment on above: IG% - Immature Granu locytes (promyelocytes, myelocytes and metamyelocytes) > 1% indicates that a LEFT SHIFT is Present. Laboratory - Chemistry and C hemistry - challengeOrdered By: Yung Valenzuela on 10-25-2024 AST [Catalytic activity/Vol] 50 U/L High 15-37 [facility] Lipid Profileon 10-25-2024 Cholesterol [Mass/Vol] 158 mg/dL Normal 200 [facility] Comment on above: Order Comment: Order Date: 01/26/25 Order Info: 4548-4 - A1C Result Comment: <200 mg/dL Desirable 200-240 mg/dL Borderline >240 mg/dL High Risk Performed By: #### L 501.5200, L500.4100, L100.0100, L500.4050, L501.9520, L501.9985 #### [facility] [address] [place], [address] Cholesterol in HDL [Mass/Vol] 43 mg/dL Normal [facility] Comment on above: Order Comment: Order Date: 01/26/25 Order Info: 4548-4 - A1C Result Comment: The drugs N-Acetylcysteine and Metamizole may falsely depress this assay. Reference Range HDL <40 mg/dL Low HDL Cholesterol HDL >or= 60 mg/dL High HDL Cholesterol Performed By: #### L 501.5200, L500.4100, L100.0100, L500.4050, L501.9520, L501.9985 #### [facility] [address] [place], [address] Cholesterol in LDL [Mass/Vol] 46 mg/dL Normal 0-130 [facility] Comment on above: Order Comment: Order Date: 01/26/25 Order Info: 4548-4 - A1C Performed By: #### L 501.5200, L500.4100, L100.0100, L500.4050, L501.9520, L501.9985 #### [facility] [address] [place], [address] Cholesterol in VLDL [Mass/Vol] 69 mg/dL High 5-40 [facility] Comment on above: Order Comment: Order Date: 01/26/25 Order Info: 4548-4 - A1C Performed By: #### L 501.5200, L500.4100, L100.0100, L500.4050, L501.9520, L501.9985 #### [facility] [address] [place], [address] Triglyceride [Mass/Vol] 344 mg/dL High [facility] Comment on above: Order Comment: Order Date: 01/26/25 Order Info: 4548-4 - A1C Result Comment: The drugs N-Acetylcysteine and Metamizole may falsely depress this assay. Serum Triglycerides Reference Interval Normal <150 mg/dL Borderline high 150 - 199 mg/dL High 200 - 499 mg/dL Very High > or = 500 mg/dL Performed By: #### L 501.5200, L500.4100, L100.0100, L500.4050, L501.9520, L501.9985 #### [facility] [address] [place], [address] Low density lipoprotein (LDL ) cholesterol measurementOrdered By: Yung Valenzuela on 10-25-2024 Cholesterol in LDL [Mass/Vol] 46 mg/dL 0-130 [facility] Lymphocytes Auto (Unsp spec) [#/Vol]Ordered By: Yung Valenzuela on 10-25-2024 Lymphocytes (Bld) [#/Vol] 2.46 10*3/uL 0.83-4.51 [facility] Lymphocytes/100 WBC Auto (Un sp spec)Ordered By: Yung Valenzuela on 10-25-2024 Lymphocytes/100 WBC (Bld) 28.9 % 19-41 [facility] MCV (mean corpuscular volume ) determinationOrdered By: Yung Valenzuela on 10-25-2024 MCV (RBC) [Entitic vol] 85.5 fL 81-99 [facility] Mean corpuscular hemoglobin (MCH) determinationOrdered By: Yung Valenzuela on 10-25-2024 MCH (RBC) [Entitic mass] 27.8 pg 27.0-32.0 [facility] Mean corpuscular hemoglobin concentration (MCHC) determinationOrdered By: Yung Valenzuela on 10-25-2024 MCHC (RBC) [Mass/Vol] 32.5 g/dL 32-36 [facility] Mean platelet volume determi nationOrdered By: Yung Valenzuela on 10-25-2024 Platelet mean volume (Bld) [Entitic vol] 10.9 fL 6.2-12.0 [facility] Microalb:Creat Ratio,Random URon 10-25-2024 Creatinine [Mass/Vol] 32.80 mg/dL Normal NO RAN GE EST. [facility] Comment on above: Order Comment: Order Date: 01/26/25 Order Info: 4548-4 - A1C Performed By: #### L 501.5200, L500.4100, L100.0100, L500.4050, L501.9520, L501.9985 #### [facility] [address] [place], [address] MALB:CRE 17.2 mg/g CRE Normal <30 mg/g CRE [facility] Comment on above: Order Comment: Order Date: 01/26/25 Order Info: 4548-4 - A1C Performed By: #### L 501.5200, L500.4100, L100.0100, L500.4050, L501.9520, L501.9985 #### [facility] [address] [place], [address] MICROALBUMIN,UR 5.6 mg/L Normal NO RANGE EST. [facility] Comment on above: Order Comment: Order Date: 01/26/25 Order Info: 4548-4 - A1C Performed By: #### L 501.5200, L500.4100, L100.0100, L500.4050, L501.9520, L501.9985 #### [facility] [address] [place], [address] Monocyte percentageOrdered B y: Yung Valenzuela on 10-25-2024 Monocytes/100 WBC (Bld) 8.9 % 0-10 [facility] Neutrophil percentageOrdered By: Yung Valenzuela on 10-25-2024 Neutrophils/100 WBC (Bld) 57.8 % 47-70 [facility] Nucleated red blood cell per centageOrdered By: Yung Valenzuela on 10-25-2024 Nucleated RBC/100 WBC (Bld) [Ratio] 0 % 0-5 [facility] Phosphoruson 10-25-2024 Phosphate [Mass/Vol] 3.4 mg/dL Normal 2.5-4.9 [facility] Comment on above: Order Comment: Order Date: 10/25/24Order Info: 0786-1 - CMPOrder Info: [id number] - LIPID Performed By: #### L 501.2300, L3300.8000 ####[facility] [address] [place], [address] Phosphorus measurementOrdere d By: Yung Valenzuela on 10-25-2024 Phosphorus Level 3.4 mg/dL 2.5-4.9 [facility] Platelet countOrdered By: Samantha Valenzuela on 10-25-2024 Platelets (Bld) [#/Vol] 298 10*3/uL 150-450 [facility] Potassium measurementOrdered By: Yung Valenzuela on 10-25-2024 Potassium [Moles/Vol] 3.9 mmol/L 3.5-5.1 [facility] RBC Auto (Bld) [#/Vol]Ordere d By: Yung Valenzuela on 10-25-2024 RBC (Bld) [#/Vol] 4.54 10*6/uL 4.2-5.4 [facility] Random urine microalbumin me asurementOrdered By: Yung Valenzuela on 10-25-2024 Urine Random Microalbumin 5.6 mg/L NO RANGE EST. [facility] Serum anion gap measurementO rdered By: Yung Valenzuela on 10-25-2024 Anion gap [Moles/Vol] 11 mmol/L 5-15 [facility] Serum globulin measurementOr dered By: Yung Valenzuela on 10-25-2024 Globulin (S) [Mass/Vol] 3.2 g/dL 2.2-4.2 [facility] Serum or plasma alanine sutherland otransferase (ALT) measurementOrdered By: Yung Valenzuela on 10-25-2024 ALT [Catalytic activity/Vol] 68 U/L High 13-56 [facility] Serum or plasma albumin jethro urement (mass/volume)Ordered By: Yung Valenzuela on 10-25-2024 Albumin [Mass/Vol] 3.9 g/dL 3.2-5.0 [facility] Serum or plasma alkaline wilver sphatase measurementOrdered By: Yung Valenzuela on 10-25-2024 ALP [Catalytic activity/Vol] 78 U/L 45-117 [facility] Serum or plasma calcium jethro urement (mass/volume)Ordered By: Yung Valenzuela on 10-25-2024 Calcium [Mass/Vol] 9.5 mg/dL 8.5-10.1 [facility] Serum or plasma cholesterol measurement (mass/volume)Ordered By: Yung Valenzuela on 10-25-2024 Cholesterol [Mass/Vol] 158 mg/dL <200 [facility] Comment on above: <200 mg/dL Desirable 200-240 mg/dL Borderline >240 mg/dL High Risk Serum or plasma creatinine m easurement (mass/volume)Ordered By: Yung Valenzuela on 10-25-2024 Creatinine [Mass/Vol] 0.77 mg/dL 0.55-1.02 [facility] Comment on above: The validity of the calculated GFR & GFRAA in patients over 70 years has not been determined. Clinical correlation is essential. Serum or plasma urea nitroge n measurement (mass/volume)Ordered By: Yung Valenzuela on 10-25-2024 Urea nitrogen [Mass/Vol] 16 mg/dL 7-18 [facility] Sodium levelOrdered By: Yung Valenzuela on 10-25-2024 Sodium [Moles/Vol] 140 mmol/L 136-145 [facility] Thiamine [Mass/Vol]Ordered B y: Yung Valenzuela on 10-25-2024 Whole Blood Vitamin B1 Level 243.3 nmol/L High 66.5-200.0 [facility] Comment on above: Performed at: [address] [id number] Director: Purvi Sharma MD, Phone: [phone] Total proteinOrdered By: Caleb Valenzuela on 10-25-2024 Protein [Mass/Vol] 7.1 g/dL 6.4-8.2 [facility] Triglycerides measurementOrd ered By: Yung Valenzuela on 10-25-2024 Triglyceride [Mass/Vol] 344 mg/dL High <199 [facility] Comment on above: The drugs N-Acetylcy steine and Metamizole may falsely depress this assay.Serum Triglycerides Reference Interval Normal <150 mg/dL Borderline high 150 - 199 mg/dL High 200 - 499 mg/dL Very High > or = 500 mg/dL Urine albumin/creatinine rat io for detection of microalbuminuriaOrdered By: Yung Valenzuela on 10-25-2024 Urine Microalbumin/Creatinine Ratio 17.2 mg/g CRE <30 [facility] Urine creatinine measurement (mass/volume)Ordered By: Yung Valenzuela on 10-25-2024 Creatinine (U) [Mass/Vol] 32.80 mg/dL NO RANGE EST. [facility] Very low density lipoprotein (VLDL) cholesterol measurementOrdered By: Yung Valenzuela on 10-25-2024 VLDL Cholesterol 69 mg/dL High 5-40 [facility] Vitamin B12on 10-25-2024 Cobalamin (Vitamin B12) [Mass/Vol] 991 pg/mL High 211-911 [facility] Comment on above: Order Comment: Order Date: 01/26/25 Order Info: 0184-1 - CBCD Performed By: #### L 501.5200, L500.4100, L100.0100, L500.4050, L501.9520, L501.9985 #### [facility] [address] [place] [address], [address] Vitamin B12 measurementOrder ed By: Yung Valenzuela on 10-25-2024 Cobalamin (Vitamin B12) [Mass/Vol] 991 pg/mL High 211-911 [facility] Vitamin D,25 Hydroxyon 10-25 Vitamin D 25-OH 41.8 ng/mL Normal [facility] Comment on above: Order Comment: Order Date: 01/26/25 Order Info: [id number] - CBCD Result Comment: Clau min D 25(OH) Status Range Deficiency <20 ng/mL (50nmol/L) Insufficiency 20 - 30 ng/mL (50 - 75 nmol/L) Sufficiency 30 - 100 ng/mL (75 - 250 nmol/L) Toxicity >100 ng/mL (>250 nmol/L) Performed By: #### L 501.5200, L500.4100, L100.0100, L500.4050, L501.9520, L501.9985 #### [facility] [address] [place], [address] White blood cell (WBC) count Ordered By: Yung Valenzuela on 10-25-2024 WBC (Bld) [#/Vol] 8.5 10*3/uL 4.4-11.0 [facility] SCRN MAMM (CAD)W/FRANCINE BILATo n 10-07-2024 SCRN MAMM (CAD)W/FRANCINE BILAT [facility] [address] [place], [place] [address] SCRN MAMM (CAD)W/FRANCINE BILAT MR#: [id number] Acct: [id number] Name: JESS MEEKS Rep #: [id number] : 1965 F 59 From: Harrison rowe MD PCP: Dr. Yung Valenzuela MD Status: [facility] Study: SCRN MAMM (CAD)W/FRANCINE BILAT Date of Exam: 09/25 01/16 Exam# [id number] Ordering Dr: Yung Valenzuela MD [id number] MAMMOGRAPHY - BILATERAL SCREENING REASON FOR EXAM: Female, 59 years old. Routine annual screening examination. PERTINENT HISTORY: Aunt with breast cancer. TECHNIQUE: Digital bilateral breast francine (3D mammographic acquisition) in the CC and MLO projections. 2-D mediolateral oblique (MLO) and craniocaudad (CC) views of both breasts were obtained. CAD: Full Field Digital Mammography with Computer Added Detection was performed. COMPARISON: Comparison is made with prior study dated October 01, 2023. FINDINGS: Breast Composition: The breasts are heterogeneously dense, which may obscure small masses. There are no dominant masses or suspicious calcifications. Stable asymmetry of breast tissue where more breast tissue is seen in the upper lateral aspect of the left breast as compared to the right side. No other significant abnormalities are identified. There has been no significant change since the prior study. BI/SCRN MAMM (CAD)W/FRANCINE BILAT IMPRESSION: Stable bilateral screening mammogram. Yearly follow-up mammogram recommended. (A) ASSESSMENT CATEGORY: BIRADS Category 2: Benign. A letter regarding these results will be sent to the patient by the facility within 30 days. Approximately 10% of breast cancers are not detected by mammography. A normal mammogram should not delay biopsy of a clinically suspicious abnormality. [id number] Electronically Signed: Harrison Amaya MD at 13:30 EST Reading Location ID and State: [address] [place] [address] , Service support , CC: Dr. Yung Valenzuela MD Senior Planning Analyst: Signed Normal [facility] PAP IG HPV HR APTIMAon 09-29 ADEQ Comment Normal . [facility] Comment on above: Order Comment: Speci men Comment: [id number] Comment: Source.............VaginaSpecimen Comment: Other..............Post MenopausalSpecimen Comment: No. of containers..01 ThinPrep Vial Result Comment: Sati sfactory for evaluation. Endocervical component may not be distinguished in cases of atrophy. Performed By: #### L 7400.0377 ####[facility] [address] [place], [address] COMM . Normal . [facility] Comment on above: Order Comment: Speci men Comment: [id number] Comment: Source.............VaginaSpecimen Comment: Other..............Post MenopausalSpecimen Comment: No. of containers..01 ThinPrep Vial Performed By: #### L 7400.0377 ####[facility] [address] [place], [place], [id number] COMMENT Comment Normal . [facility] Comment on above: Order Comment: Speci men Comment: [id number] Comment: Source.............VaginaSpecimen Comment: Other..............Post MenopausalSpecimen Comment: No. of containers..01 ThinPrep Vial Result Comment: This liquid based ThinPrep(R) pap test was screened with the use of an image guided system. Performed By: #### L 7400.0377 ####[facility] [address] [place], [place], [address] DIAG Comment Normal . [facility] Comment on above: Order Comment: Speci men Comment: [id number] Comment: Source.............VaginaSpecimen Comment: Other..............Post MenopausalSpecimen Comment: No. of containers..01 ThinPrep Vial Result Comment: NEGA TIVE FOR INTRAEPITHELIAL LESION OR MALIGNANCY. CELLULAR CHANGES ASSOCIATED WITH ATROPHY ARE PRESENT. Performed By: #### L 7400.0377 ####[facility] [address] [place], [address] HPV APTIMA, HR Negative Normal Negative [facility] Comment on above: Order Comment: Speci men Comment: [id number] Comment: Source.............VaginaSpecimen Comment: Other..............Post MenopausalSpecimen Comment: No. of containers..01 ThinPrep Vial Result Comment: This nucleic acid amplification test detects fourteen high- risk HPV types (16,18,31,33,35,39,45,51,52,56,58,59,66,68) without differentiation. Performed at: - [address] [id number] Physical Therapy Manager: Trini Mae MD, Phone: [phone] Performed at: =[address] [id number] Physical Therapy Manager: Trini Mae MD, Phone: [phone] Performed By: #### L 7400.0377 ####[facility] [address] [place], [address] PAPSMR Comment Normal . [facility] Comment on above: Order Comment: Speci men Comment: [id number] Comment: Source.............VaginaSpecimen Comment: Other..............Post MenopausalSpecimen Comment: No. of containers..01 ThinPrep Vial Result Comment: The Pap smear is a screening test designed to aid in the detection of premalignant and malignant conditions of the uterine cervix. It is not a diagnostic procedure and should not be used as the sole means of detecting cervical cancer. Both false-positive and false-negative reports do occur. Performed By: #### L 7400.0377 ####[facility] [address] [facility] [place], [address] PERFORM Comment Normal . [facility] Comment on above: Order Comment: Speci men Comment: [id number] Comment: Source.............VaginaSpecimen Comment: Other..............Post MenopausalSpecimen Comment: No. of containers..01 ThinPrep Vial Result Comment: Gladys Adams [employer] (ASCP) Performed By: #### L 7400.0377 ####[facility] [facility] [id number] [place], [address] Production Floater Cyto stain Nom (C vx/Vag) [ID]Ordered By: Yung Valenzuela on 09-19-2024 Pap Smear Performed By Comment . [facility] Comment on above: Twila Adams, Cyto technologist (ASCP) Cytology report Cyto stain D oc (Cvx/Vag)Ordered By: Yung Valenzuela on 09-19-2024 Thin Prep Pap Smear Comment . [facility] Comment on above: The Pap smear is a s creening test designed to aid in thedetection of premalignant and malignant conditions of theuterine cervix. It is not a diagnostic procedure andshould not be used as the sole means of detecting cervicalcancer. Both false-positive and false-negative reports dooccur. HPV 16+18+31+33+35+39+45+51+ 52+56+58+59+66+68 DNA Probe+sig amp Ql (Cvx)Ordered By: Yung Valenzuela on 09-19-2024 Human Papillomavirus High Risk Negative Negative [facility] Comment on above: This nucleic acid am plification test detects fourteen high-risk HPV types (16,18,31,33,35,39,45,51,52,56,58,59,66,68)without differentiation.Performed at: - [address] [id number] Director: Trini Mae MD, Phone: [phone] at: = - [facility] [id number] Director: Trini Mae MD, Phone: [phone] Image-guided ThinPrep PapOrd ered By: Yung Valenzuela on 09-19-2024 Pap Smear Note Comment . [facility] Comment on above: This liquid based Th inPrep(R) pap test was screened withthe use of an image guided system. Image-guided liquid-based Pa pOrdered By: Yung Valenzuela on 09-19-2024 Pap Smear Diagnosis Comment . [facility] Comment on above: NEGATIVE FOR INTRAEP ITHELIAL LESION OR MALIGNANCY.CELLULAR CHANGES ASSOCIATED WITH ATROPHY ARE PRESENT. Service comment (Unsp spec) [Interp]Ordered By: Yung Valenzuela on 09-19-2024 Pap Smear Comment (3) . . [facility] Hemoglobin A1con 08-29-2024 HbA1c (Bld) [Mass fraction] 6.8 % High 3.8-5.6 [facility] Comment on above: Order Comment: Order Date: 01/26/25 Order Info: [id number] - A1C Result Comment: Norm al < 5.7 % Prediabetic 5.7 - 6.4 % Diabetic >or= 6.5 % Please note range changes. Performed By: #### L 501.5200, L500.4100, L100.0100, L500.4050, L501.9520, L501.9985 #### [facility] [address] [place], [place], [id number] Vitamin D,25 Hydroxyon 08-29 Vitamin D 25-OH 41.4 ng/mL Normal [facility] Comment on above: Order Comment: Order Date: 01/26/25 Order Info: [id number] - A1C Result Comment: Clau min D 25(OH) Status Range Deficiency <20 ng/mL (50nmol/L) Insufficiency 20 - 30 ng/mL (50 - 75 nmol/L) Sufficiency 30 - 100 ng/mL (75 - 250 nmol/L) Toxicity >100 ng/mL (>250 nmol/L) Performed By: #### L 501.5200, L500.4100, L100.0100, L500.4050, L501.9520, L501.9985 #### [facility] [address] [place], [place], [id number] ANES POSTPROC EVALon 024 ANES POSTPROC EVAL HNO ID: [id number] Author: AMISH WORKMAN DO Service: Anesthesiology Author Type: Anesthesiologist Type: Anesthesia Postprocedure Evaluation Filed: 07/08/2024 18:37 Note Text: POST ANESTHESIA EVALUATION NOTE : 1965 Procedure Summary Date: 07/08/24 Room / Location: [place] OR 02 / [place] OR Anesthesia Start: 1648 Anesthesia Stop: 1815 Procedure: INSRT OR RPLCMT SPINAL CORD NSTIM PULSE GENERATOR OR RECVER W/ POCKET CREATE CONNECT BTWN ELTRD ARRAY AND PULSE GENERATOR OR RECVR (Bilateral) Diagnosis: Malfunction of spinal cord stimulator, initial encounter (HCC) (Malfunction of spinal cord stimulator, initial encounter (HCC) [T85.192A]) Surgeons: Nicole Cates MD, PhD Responsible Provider: Amish Workman DO Anesthesia Type: MAC ASA Status: 3 Anesthesia Type: MAC Last Vitals Vitals Value Taken Time BP 147/59 07/08/24 1830 Temp 36.6 ?C (97.9 ?F) 07/08/24 1820 Pulse 61 07/08/24 1837 Resp 14 07/08/24 1837 SpO2 100 % 07/08/241836 Vitals shown include unfiled device data. Post Anesthesia Patient Status Patient Evaluation: bedside. Anticipated Disposition: phase 2 then home. Neurological Status: aware and responsive. Pulmonary Status: breathing comfortably on room air Airway Control: returned to baseline unsupported. Pain Management: clinically adequate Postoperative Hydration: acceptable. Intraoperative Events: no significant anesthesia events Post Operative Nausea/Vomiting Status: no significant post operative nausea or vomiting Recommendation: continue current plan of care and further care per PACU/ICU/floor team. Anesthesia Observations No Documentation SIGNATURE: Amish Workman DO PATIENT NAME: Jess Meeks DATE: July 08, 2024 TIME: 6:37 PM CSN: [id number] Normal [facility] ANES PRE-OPon 07-08-2024 ANES PRE-OP HNO ID: [id number] Author: KENDRICK MACDONALD MD Service: Anesthesiology Author Type: Anesthesiologist Type: Anesthesia Preprocedure Evaluation Filed: 07/08/2024 13:12 Note Text: ANESTHESIOLOGY DAY OF SURGERY NOTE : 1965 Procedure Information Date/Time: 07/08/24 1430 Procedure: INSRT OR RPLCMT SPINAL CORD NSTIM PULSE GENERATOR OR RECVER W/ POCKET CREATE CONNECT BTWN ELTRD ARRAY AND PULSE GENERATOR OR RECVR (Bilateral) Location: [place] OR OR Surgeons: Nicole Cates MD, PhD Estimated body mass index is 32.45 kg/m? as calculated from the following: Height as of 07/01/24: 165.1 cm (5' 5). Weight as of 07/01/24: 88.5 kg (195 lb). Most recent hematocrit and potassium results: Hematocrit 38.6 03/07/2022 Potassium 4.3 03/07/2022 Relevant Problems ANESTHESIA (+) KAVON on CPAP CARDIO (+) Essential hypertension (+) Internal hemorrhoids without mention of complication ENDO (+) Controlled type 2 diabetes mellitus without complication, without long-term current use of insulin (HCC) PULMONARY (+) KAVON on CPAP I - PHYSICAL EVALUATION AIRWAY Patient intubated: No. Tracheostomy tube not present Mallampati: II. TM distance: >3 FB. Neck ROM: full ROM without neurological symptoms. Mouth opening: adequate. Short neck: no. Thick neck: no DENTAL Dental findings: teeth intact. II - ANESTHESIA PLAN ASA Score: 3 Anesthetic Plan: MAC The patient is not a current smoker. (former) NPO Status: adequate Beta Taina Monitoring Plan Monitoring plan: standard ASA. Post Procedure Analgesic Plan Informed Consent Anesthetic risks, benefits, alternatives, personnel and consent discussed: yes. Patient / Responsible Alliance Party agrees to proceed: yes Patient / Surrogate agrees to blood products: blood products not planned Potential Anesthesia issues that may suggest increased risk of complications or contraindication to planned procedure: none. Vitals Value Taken Time BP 128/83 07/08/24 1243 Pulse 64 07/08/24 1243 Resp 16 07/08/24 1243 Temp 36.3 ?C (97.3 ?F) 07/08/24 1243 SpO2 100 % 07/08/24 1243 No current facility-administered medications on file as of 07/08/2024. Outpatient Medications as of 07/08/2024 Medication Sig acetaminophen (TYLENOL ARTHRITIS ORAL) Take by mouth as needed. diclofenac, EC, (VOLTAREN) 75 mg EC tablet Take 1 tablet by mouth twice daily as needed (for pain.). cyclobenzaprine (FLEXERIL) 10 mg tablet Take 1 tablet by mouth three times daily as needed for muscle spasm. lisinopril (ZESTRIL, PRINIVIL) 20 mg tablet Take 20 mg by mouth once daily. metFORMIN ER (GLUCOPHAGE XR) 500 mg 24 hr tablet twice daily. loratadine (CLARITIN) 10 mg tablet Take 10 mg by mouth once daily. oykmnks-imzomahad-xjwhemg D3 500 mg-5 mcg (200 unit) per tablet Take 1 tablet by mouth two times a day with meals. polyethylene glycol 3350 (MIRALAX, GLYCOLAX) 17 gram/dose powder Take by mouth once daily. Minocycline HCl 50 mg tablet TAKE 1 PILL DAILY FOR 10 DAYS ONLY DURING FLARES DULoxetine (CYMBALTA) 60 mg capsule Take 1 capsule by mouth once daily. rosuvastatin (CRESTOR) 5 mg tablet Take 1 tablet by mouth daily at bedtime. As directed oxybutynin ER (DITROPAN XL) 10 mg 24 hr tablet TAKE 1 TABLET BY MOUTH 1 TIME PER DAY SE WERE DISCUSSED INCLUDING DRY MOUTH AND CONSTIPATION Cholecalciferol, Vitamin D3, 2,000 unit cap Take 1 tablet by mouth twice daily. Multivitamin capsule Take 1 capsule by mouth once daily. ZINC ORAL Take by mouth as needed. Ibuprofen 200 mg ORAL Cap Take by mouth every 4 hours as needed. FOR PAIN. CPAP/BIPAP/OTHER Type .CPAPSettings into a note to see current settings/supplies/DME information. Cetirizine 10 mg cap Take by mouth once daily. estradiol (ESTRACE) 0.01 % (0.1 mg/gram) vaginal cream APPLY A PEA SIZE AMOUNT OF CREAM TO FINGER AND LUBRICATE VAGINAL TISSUE 3 TIMES WEEKLY I have interviewed and examined the patient. I have reviewed the medical record and/or the pre-anesthesia evaluation, pertinent labs, and test results. This contains updated information obtained within 48 hours of Surgery/Procedure. SIGNATURE: Kendrick Macdonald MD PATIENT NAME: Jess Meeks DATE: July 08, 2024 TIME: 1:10 PM CSN: [id number] [facility] 07-08-2024 [facility] Telephone (AGSPINE3) -- JESS MEEKS I ([id number]) 1965 F [facility] Date Time Provider Department 07/08/24 NICOLE CATES AGSPINE3 During your visit today, we recorded the following information about you: Nicole Cates MD, PhD 07/08/2024 3:54 PM Signed Orders for post-operative antibiotics and post-operative pain control sent to patients pharmacy on file for SCS battery exchange on 07/08/24. Nicole Cates MD, PhD 07/08/2024 4:12 PM Signed Addended by: NICOLE CATES on: 07/08/2024 04:12 PM Modules accepted: Orders Nicole Cates MD, PhD 07/08/2024 7:04 PM Signed Addended by: NICOLE CATES on: 07/08/2024 07:04 PM Modules accepted: Orders Allergies As of Date: 07/08/2024 Noted Allergy Reaction ATORVASTATIN 03/10/2016 17 - Myalgia Comments: Muscle aches; resolved after stopped statin NAPROXEN 01/13/2019 4 - Hives NAPROXYN (NAPROXEN) 12/23/2010 4 - Hives PRAVASTATIN 09/01/2017 17 - Myalgia Comments: Did not tolerate RESTASIS (CYCLOSPORINE) 07/25/2019 14 - Other: See Comments Comments: Burning and redness in the eyes SEASONAL ALLERGIES 08/08/2022 14 - Other: See Comments WELLBUTRIN XL (BUPROPION) 08/25/2006 ZOLOFT (SERTRALINE) 02/13/2006 6 - Diarrhea IBUPROFEN 06/05/2020 2 - Rash Date Reviewed: 07/08/2024 Reviewed by: Yana Pedraza RN - Fully Assessed Primary Visit Diagnosis:Malfunction of spinal cord stimulator, initial encounter ([facility]) [T85.192A] Other Visit Diagnosis:S/P insertion of spinal cord stimulator [Z96.89] Order(s):cephALEXin (KEFLEX) 500 mg capsuleTake 1 capsule by mouth four times daily for 7 days.Disp: 28 capsuleRfl: 0 diclofenac, EC, (VOLTAREN) 75 mg EC tabletTake 1 tablet by mouth every 12 hours with food as needed for pain.Disp: 60 tabletRfl: 2 oxyCODONE IR (ROXICODONE) 5 mg immediate release tabletTake 1 tablet by mouth every 6 hours as needed for pain for up to 7 days. For severe breakthrough pain only. Do not take more than 4 tablets in a 24 hour period.Disp: 28 tabletRfl: 0 Prescriptions as of 07/08/2024 - cephALEXin (KEFLEX) 500 mg capsule Take 1 capsule by mouth four times daily for 7 days. - diclofenac, EC, (VOLTAREN) 75 mg EC tablet Take 1 tablet by mouth every 12 hours with food as needed for pain. - oxyCODONE IR (ROXICODONE) 5 mg immediate release tablet Take 1 tablet by mouth every 6 hours as needed for pain for up to 7 days. For severe breakthrough pain only. Do not take more than 4 tablets in a 24 hour period. - acetaminophen (TYLENOL ARTHRITIS ORAL) Take by mouth as needed. - CPAP/BIPAP/OTHER Type .CPAPSettings into a note to see current settings/supplies/DME information. - Cetirizine 10 mg cap Take by mouth once daily. - cyclobenzaprine (FLEXERIL) 10 mg tablet Take 1 tablet by mouth three times daily as needed for muscle spasm. - lisinopril (ZESTRIL, PRINIVIL) 20 mg tablet Take 20 mg by mouth once daily. - metFORMIN ER (GLUCOPHAGE XR) 500 mg 24 hr tablet twice daily. - loratadine (CLARITIN) 10 mg tablet Take 10 mg by mouth once daily. - bxrgxsi-ukpplxewm-wmjrcyo D3 500 mg-5 mcg (200 unit) per tablet Take 1 tablet by mouth two times a day with meals. - polyethylene glycol 3350 (MIRALAX, GLYCOLAX) 17 gram/dose powder Take by mouth once daily. - Minocycline HCl 50 mg tablet TAKE 1 PILL DAILY FOR 10 DAYS ONLY DURING FLARES - estradiol (ESTRACE) 0.01 % (0.1 mg/gram) vaginal cream APPLY A PEA SIZE AMOUNT OF CREAM TO FINGER AND LUBRICATE VAGINAL TISSUE 3 TIMES WEEKLY - DULoxetine (CYMBALTA) 60 mg capsule Take 1 capsule by mouth once daily. - rosuvastatin (CRESTOR) 5 mg tablet Take 1 tablet by mouth daily at bedtime. As directed - oxybutynin ER (DITROPAN XL) 10 mg 24 hr tablet TAKE 1 TABLET BY MOUTH 1 TIME PER DAY SE WERE DISCUSSED INCLUDING DRY MOUTH AND CONSTIPATION - Cholecalciferol, Vitamin D3, 2,000 unit cap Take 1 tablet by mouth twice daily. - Multivitamin capsule Take 1 capsule by mouth once daily. - ZINC ORAL Take by mouth as needed. Facility-Administered Medications as of 07/08/2024 - lactated ringers iv infusion - HYDROmorphone 0.5 mg injection (DILAUDID) - oxyCODONE IR 5 mg tab(s) (ROXICODONE) - ondansetron (PF) 4 mg injection (ZOFRAN) Meds Comments as of 05/22/2016: [place] Problem List As Of Date 07/08/2024 Noted Resolved Tobacco use disorder [F17.200] 01/07/2006 10/14/2016 Mixed hyperlipidemia [E78.2] 01/07/2006 SOMNOLENCE [R40.4] 01/07/2006 07/30/2016 INT HEMORRHOID W/O COMPL [K64.8] 01/07/2006 Essential hypertension [I10] 07/20/2006 DEPRESSIVE DISORDER NEC [F32.89] 09/22/2006 Allergic Rhinitis [J30.9] 05/01/2010 Fibroid uterus [D25.9] 04/14/2011 10/22/2013 Pelvic pain in female [R10.2] 04/14/2011 10/22/2013 Dysmenorrhea [N94.6] 04/14/2011 Postlaminectomy syndrome, lumbar region [M96.1] 02/03/2014 Myalgia and myositis, unspecified [SEN2938] 02/03/2014 Other chronic postoperative pain [G89.28] 0 (more content not included)... Normal [facility] HISTORY PHYSICALon HISTORY PHYSICAL HNO ID: [id number] Author: NICOLE CATES MD, PhD Service: ? Author Type: Physician Type: H&P Filed: 07/08/2024 16:19 Note Text: [facility] Today's Date: 07/03/2024 Name: Jess Meeks : 1965 Purpose: Follow-up Patient Evaluation - This is an established patient, returning today for continued evaluation and management of the chief complaint noted below, SCS battery exchange consult Chief complaint: neck pain, lower back pain Referring Clinician: Self Pertinent Past Medical History: Diabetes, uterine fibroids, GERD, HTN, DJD, KAVON on CPAP periodic limb movement disorder, myalgia, HL, Pertinent Past Surgeries: S/p lumbar spine fusion, s/p SCS implant (2013) __ Plan at last visit: PLAN: Jess Meeks would benefit from the following to reach personal goals for decreasing pain, improving function and work participation, and/or improving quality of life: Medications: - continue Gabapentin 600-900 QHS, Diclofenac 75mg BID vs Nabumetone 500mg every day prn, Flexeril 10mg TID, Duloxetine 60mg every day. Pt encouraged to wean NSAIDs as tolerated Interventional Procedures: SCS battery exchange ([facility] - MRI Conditional leads) Studies: X-ray: Thoracic Spine, X-ray: Lumbar Spine Functional Yarsanism: NONE Referrals: No additional considerations at present Follow-up: after SCS battery exchange Depending on response to the above plan, consider: MRI L-spine after upgrade to MRI conditional IPG Interval History: Overall pain and functional disability since last visit: Unchanged New Complaints since last visit: No Today, pt reports that she completed her XR T/L-spine as instructed at her last OV. She was scheduled for SCS battery exchange on 05/06/24, however her surgery was delayed due to insufficient NPO time. She is now scheduled for SCS battery exchange on 07/08/2024. She continues to reports that she normally has close to 100% relief with her SCS. However, she reports that since September 2023, she has been unable to charge her system past 2 bars on her remote, with 3-4 days of total battery life with each charge. She reports that her external utilities manager will beep and tell her that her charging is done after 10min as opposed to 1-2hours, however after removing her utilities manager she has very limited duration of battery life. She reports that when her SCS is working it provides close to 100% relief of her lower back and leg symptoms. Patient normally that she has close to 100% relief from her SCS system with regards to her lower back pain and bilateral L>R lateral thigh pain to the level of the knee. With regards to her neck pain, patient reports that she has had significant benefit from her cervical RFA however she reports that it is unclear what percentage is due to her NSAID therapy as she has continued to take Nabumetone 400mg every day vs Diclofenac 75mg po BID as these have relieved almost all of her neck pain in the past. Chi has ongoing relief from L-sided cervical RFA, with manageable pain relief since her last cRFA in July 2022. She deferred R-sided cervical RFA due to sig increase in pain after her L-sided cervical RFA procedure which improved over time, and manageable symptoms on the R-side. Recall: Patient was last seen on 06/17/[address] C-spine from 05/2020 showed multilevel degenerative changes with foraminal and central canal stenosis - most prominent over C6-7 level. She has had CESIs and left cervical facet RFAs in the past for treatment with >75% relief for ~8 months from prior RFAs. She also has a SCS in place for low back pain d/t post-laminectomy syndrome - implanted in 2013 Dr. Hernandez. She was further noted to have owngoing lower back pain with muscle spasms and occasional radicular leg pain. At that visit, plan was made to repeat a cervical RFA at C3/4, C4/5 and C5/6 on the left which she underwent on 09/17/21. She was further planned for SCS reprogramming to assess for benefit of new programming vs need for new IPG. Patient reports that she has close to 100% relief from her SCS system with regards to her lower back pain and bilateral L>R lateral thigh pain to the level of the knee. She had an acute flare in May in 2020 and presented to her PCP and was given a Toradol shot x2 with improvement for 4 days each time, and was continued for Nabumetone 500mg every day. She will have intermittent muscle spasms that is responsive to Flexeril, especially when she is doing strenious activity at work. With regards to her neck pain, patient reports that she has had significant benefit from her cervical RFA however she reports that it is unclear what percentage is due to her NSAID therapy as she has continued to take Nabumetone 400mg every day vs Dic (more content not included)... Normal [facility] OPERATIVE NOon 07-08-2024 OPERATIVE NO HNO ID: [id number] Author: NICOLE CATES MD, PhD Service: ? Author Type: Physician Type: Operative Report Filed: 07/08/2024 18:36 Note Text: [facility] - Operative Report SURGEON: Nicole Cates MD, PhD PATIENT NAME: Jess Meeks SEX/AGE: Female / 58 year old DATE OF : 1965 DATE OF SURGERY: July 03, 2024 SURGEON: Nicole Cates MD, PhD LOCATION: [facility]. PREPROCEDURE DIAGNOSES: (Z96.89) S/P insertion of spinal cord stimulator (primary encounter diagnosis) (T85.192A) Malfunction of spinal cord stimulator, initial encounter (HCC) POSTPROCEDURE DIAGNOSES: same PROCEDURES: 1. Replacement of iKaaz rechargeable WaveWriter Alpha 32 implantable pulse generator. COMPLICATIONS: None. CLINICAL NOTE: 58 year old female with a history of depression, diabetes, diffuse cystic mastopathy, fibroids, HTN, DJD, LBP, KAVON on CPAP, maylgai, cervicalgia, periodic limb movement disorder, HTN, HL, T2DM, lumbar spinal fusion c/b post-laminectomy syndrome c/b postlaminectomy syndrome s/p SCS implant with chronic neck and low back pain who presents for SCS battery exchange due to SCS IPG end of life. DESCRIPTION OF PROCEDURE: The patient was identified in the preprocedure area. The patient's history was reviewed and physical exam was performed. The risks, benefits and alternatives to the procedure was discussed, and informed consent was obtained. All of the patients questions were answered. The patient was marked and had the opportunity to have additional questions answered by our team as well as the device hvac sales representative. The patient was taken to the operating room at [facility] and was carefully positioned prone on the operating room table with careful attention to pressure points, with pillows underneath the abdomen to decrease lumbar lordosis. Prophylactic antibiotics were then given. The thoracolumbar area was exposed, and surgical prep and draping were performed with alcohol and chlorhexidine. Sterile drapes and Ioban were then placed. A timeout was then performed including all team members. Under fluoroscopy, the location of patients implanted SCS IPG and leads were evaluated with AP and lateral imaging. The patients SCS IPG wires were noted to be behind/underneath the implanted IPG. The intended surgical incision was then marked on the skin and a total of 5ml of 1% Lidocaine and 5mL of 0.5% Marcaine with epinephrine was used to anesthetize this location. After adequate skin anesthesia was obtained, a 10 blade scalpel was used to make a 2.5 inch vertical incision over the implantable pulse generator. Dissection was carried down to the subcutaneous tissue and meeta's fascia. Electrocautery was used to maintain hemostasis. Blunt dissection was used to expose the battery, which was subsequently removed from the pocket site. The leads were noted to be behind the IPG. The leads were then disconnected from the old IPG and the old IPG was passed off the surgical field. The pocket site was then irrigated with vancomycin containing saline and hemostasis was maintained with electrocautery. The leads were then connected to the new SCS IPG. The connection between the leads and the new SCS IPG as well as impedences were checked with the device hvac sales representative, which were all satisfactory. 4 set screws were then locked into place onto the IPG. The pocket was again irrigated with vancomycin irrigation solution. The IPG was then placed into the pocket with the SCS leads positioned behind the IPG. The IPG was then anchored using 2-0 silk sutures, and the leads were tucked behind the device. Vancomycin powder was then added into the IPG pocket. The pocket was closed using 2-0 Vicryl and 3-0 Monocryl interrupted sutures for the fascial and deep dermis layers, and a 3-0 Monocryl running suture for skin. The incision was re-inforced with Dermabond, with a final dressing of gauze covered by a tegaderm on top. All counts were deemed to be correct, and the patient tolerated the procedure well. The patient was taken out to the recovery room where additional programming and pain management was completed. No qualified residents were available, thus [facility] Surgical Assistants assisted during the entire operation. Their involvement included: positioning the patient, surgical site preparation, draping, exposure and closure under supervision. Nicole Cates MD, PhD Interventional Pain Management Normal [facility] XR THORACIC 2V AP/LATon 06-26 XR THORACIC 2V AP/LAT * * *Final Report* * * DATE OF EXAM: Jul 08 2024 6:59PM MAUREEN [id number] - XR THORACIC 2V AP/LAT / PROCEDURE REASON: SPINAL CORD STIMULATOR * * * * Physician Interpretation * * * * INTRAOPERATIVE FLUOROSCOPY HISTORY: SPINAL CORD STIMULATOR COMPARISON: None TECHNIQUE: Fluoroscopic imaging was provided for procedure localization. Fluoroscopic Radiation Summary: Plane A, Air Kerma: 1.0 mGy Dose Area Product (DAP): Fluoro time: 0:04 min:sec RESULT: See impression IMPRESSION: Fluoroscopy was used in the operating room for procedural guidance during spinal cord stimulator replacement. 3 portable fluoroscopic spot films were obtained. Study was performed by Dr. NICOLE CATES. Recommend correlation with real-time interoperative findings and procedure note. Senior Planning Analyst: MANASA Transcribe Date/Time: Jul 10 2024 6:44A Dictated by : HECTOR VAZ MD This examination was interpreted and the report reviewed and electronically signed by: HECTOR VAZ MD on Jul 10 2024 6:44AM EST [id number] Normal [facility] CNPNon 07-03-2024 CNPN Telephone (AGSPINE3) -- JESS MEEKS I ([id number]) 1965 F CHT Date Time Provider Department 07/03/24 NICOLE CATES AGSPINE3 During your visit today, we recorded the following information about you: Nicole Cates MD, PhD 07/03/2024 10:15 PM Signed Order for mupirocin nasal ointment sent to patients pharmacy on file for nasal decolonization Allergies As of Date: 07/03/2024 Noted Allergy Reaction ATORVASTATIN 03/10/2016 17 - Myalgia Comments: Muscle aches; resolved after stopped statin NAPROXEN 01/13/2019 4 - Hives NAPROXYN (NAPROXEN) 12/23/2010 4 - Hives PRAVASTATIN 09/01/2017 17 - Myalgia Comments: Did not tolerate RESTASIS (CYCLOSPORINE) 07/25/2019 14 - Other: See Comments Comments: Burning and redness in the eyes SEASONAL ALLERGIES 08/08/2022 14 - Other: See Comments WELLBUTRIN XL (BUPROPION) 08/25/2006 ZOLOFT (SERTRALINE) 02/13/2006 6 - Diarrhea IBUPROFEN 06/05/2020 2 - Rash Date Reviewed: 07/01/2024 Reviewed by: Sofiya Horta APRN.SANDER HAND - Fully Assessed Visit Diagnosis:Pre-op examination [Z01.818] Order(s):mupirocin (BACTROBAN) 2 % ointmentUse in the nose two times a day for 5 days. Apply 1/2 inch to each nostril with a Q-tip twice daily x 5 days. Start on 4Disp: 22 gRfl: 0 Prescriptions as of 07/04/2024 - mupirocin (BACTROBAN) 2 % ointment Use in the nose two times a day for 5 days. Apply 1/2 inch to each nostril with a Q-tip twice daily x 5 days. Start on 05/01/2024 - acetaminophen (TYLENOL ARTHRITIS ORAL) Take by mouth as needed. - CPAP/BIPAP/OTHER Type .CPAPSettings into a note to see current settings/supplies/DME information. - Cetirizine 10 mg cap Take by mouth once daily. - diclofenac, EC, (VOLTAREN) 75 mg EC tablet Take 1 tablet by mouth twice daily as needed (for pain.). - cyclobenzaprine (FLEXERIL) 10 mg tablet Take 1 tablet by mouth three times daily as needed for muscle spasm. - lisinopril (ZESTRIL, PRINIVIL) 20 mg tablet Take 20 mg by mouth once daily. - metFORMIN ER (GLUCOPHAGE XR) 500 mg 24 hr tablet twice daily. - loratadine (CLARITIN) 10 mg tablet Take 10 mg by mouth once daily. - djgrhfw-mndoixcif-uhqdlnc D3 500 mg-5 mcg (200 unit) per tablet Take 1 tablet by mouth twice daily with meals. - polyethylene glycol 3350 (MIRALAX, GLYCOLAX) 17 gram/dose powder Take by mouth once daily. - Minocycline HCl 50 mg tablet TAKE 1 PILL DAILY FOR 10 DAYS ONLY DURING FLARES - estradiol (ESTRACE) 0.01 % (0.1 mg/gram) vaginal cream APPLY A PEA SIZE AMOUNT OF CREAM TO FINGER AND LUBRICATE VAGINAL TISSUE 3 TIMES WEEKLY - DULoxetine (CYMBALTA) 60 mg capsule Take 1 capsule by mouth once daily. - rosuvastatin (CRESTOR) 5 mg tablet Take 1 tablet by mouth daily at bedtime. As directed - oxybutynin ER (DITROPAN XL) 10 mg 24 hr tablet TAKE 1 TABLET BY MOUTH 1 TIME PER DAY SE WERE DISCUSSED INCLUDING DRY MOUTH AND CONSTIPATION - Cholecalciferol, Vitamin D3, 2,000 unit cap Take 1 tablet by mouth twice daily. - Multivitamin capsule Take 1 capsule by mouth once daily. - ZINC ORAL Take by mouth as needed. - Ibuprofen 200 mg ORAL Cap Take by mouth every 4 hours as needed. FOR PAIN. Meds Comments as of 05/22/2016: Ginsenna Problem List As Of Date 07/03/2024 Noted Resolved Tobacco use disorder [F17.200] 01/07/2006 10/14/2016 Mixed hyperlipidemia [E78.2] 01/07/2006 SOMNOLENCE [R40.4] 01/07/2006 07/30/2016 INT HEMORRHOID W/O COMPL [K64.8] 01/07/2006 Essential hypertension [I10] 07/20/2006 DEPRESSIVE DISORDER NEC [F32.89] 09/22/2006 Allergic Rhinitis [J30.9] 05/01/2010 Fibroid uterus [D25.9] 04/14/2011 10/22/2013 Pelvic pain in female [R10.2] 04/14/2011 10/22/2013 Dysmenorrhea [N94.6] 04/14/2011 Postlaminectomy syndrome, lumbar region [M96.1] 02/03/2014 Myalgia and myositis, unspecified [[id number]] 02/03/2014 Other chronic postoperative pain [G89.28] 02/03/2014 Cervicalgia [M54.2] 02/03/2014 Ocular rosacea [L71.8] KAVON on CPAP [G47.33] Dysmetabolic syndrome [E88.810] 07/17/2015 Major depressive disorder, single episode, mode*11/19/2015 Controlled type 2 diabetes mellitus without com*04/20/2017 Excessive daytime sleepiness [G47.19] 03/24/2018 PLMD (periodic limb movement disorder) [G47.61] 07/20/2020 Hypersomnia [G47.10] 07/20/2020 Degeneration of intervertebral disc of lumbar r*08/08/2022 Pre-op examination [Z01.818] 04/27/2024 Malfunction of spinal cord stimulator (HCC) [T8*04/27/2024 Prescriptions ordered this encounter Disp Refills Start End MUPIROCIN 2 % TOPICAL OINTMENT 22 g 0 07/03/2024 07/07/2024 Sig: Use in the nose two times a day for 5 days. Apply 1/2 inch to each nostril with a Q-tip twice daily x 5 days. Start on 05/01/2024 Medications Discontinued During This Encounter Prescriptions - mupirocin (BACTROBAN) 2 % ointment (Discontinued) Use in the nose two times a day for 5 days. Apply 1/2 inch to each nostril with a (more content not included)... Normal [facility] HISTORY PHYSICALon HISTORY PHYSICAL HNO ID: [id number] Author: SOFIYA HORTA APRN.SANDER HAND Service: ? Author Type: Nurse Practitioner Type: H&P Filed: 07/01/2024 09:46 Note Text: [facility] HISTORY AND PHYSICAL EXAMINATION SERVICE DATE: 07/01/2024 SERVICE TIME: 9:46 AM PRIMARY CARE PHYSICIAN: Yung Valenzuela MD, MD Assessment Patient has the following medical conditions which may affect jose-operative course: Malfunction of spinal cord stimulator (HCC) Surgery scheduled with Dr. Cates on 07/08/2024 Pre-op examination Patient has the following medical conditions which may affect jose-operative course addressed in assessment and plan today. Mixed hyperlipidemia Statin, continue as prescribed Essential hypertension Controlled with lisinopril, instructed to hold morning of surgery KAVON on CPAP CPAP compliant Controlled type 2 diabetes mellitus without complication, without long-term current use of insulin (HCC) No recent A1C in Epic Metformin - Hold morning of surgery Peterson Activity Status Index: METS: Climb a flight of stairs or walk up a hill (5.50 METs) DASI Score: 5.5 Patient denies any chest pain or undue shortness of breath with the above physical activity. ARISCAT Score: Age: 51-80 Preoperative SpO2: >=96% Respiratory infection in the last month: No Preoperative anemia: No Surgical incision: peripheral Duration of surgery: 2-3 hrs Emergency procedure: No ARISCAT Score: 19 ANESTHESIA FINDINGS: Intubation History: No history of difficult intubation. No abnormal airway history Significant Anesthesia Considerations: none Airway History: No history of difficult airway No abnormal airway history I - PHYSICAL EVALUATION AIRWAY Patient intubated: No. DENTAL Dental findings: teeth intact. II - ANESTHESIA PLAN Anesthetic Plan: MAC Beta Taina Monitoring Plan Post Procedure Analgesic Plan Prepared for Surgery: CONSULTS: Patient does not require consults for optimization at this time Planned Anesthetic: MAC The Following Tests/Procedures Have Been Initiated: Orders Placed This Encounter STAPH AUREUS PCR Standing Status: Future Standing Expiration Date: 09/30/2024 REASON FOR VISIT: Jess Meeks is a 58 year old female who is scheduled for Procedure(s): INSRT OR RPLCMT SPINAL CORD NSTIM PULSE GENERATOR OR RECVER W/ POCKET CREATE CONNECT BTWN ELTRD ARRAY AND PULSE GENERATOR OR RECVR (Bilateral) at the request of Nicole Mcguire MD, PhD for routine HANDP. My final recommendation will be communicated back to the requesting physician by way of shared medical record or letter. The reason for this visit is to perform a comprehensive review of the patient's past medical history, assess their current health status and obtain any additional testing required based on anesthesia guidelines. We will also identify any potential anesthesia problems or contraindications to the planned procedure. Subjective The patient has the following: COVID-19 Immunization Status Overdue - Covid-19 Vaccine ( season) Overdue since 06/26/2024 08/23/2021 Imm Admin: COVID-19 original vaccine, age 12+ yr, monovalent (PFIZER-BIONTECH - PURPLE TOP) 01/24/2021 Imm Admin: COVID-19 original vaccine, age 12+ yr, monovalent (PFIZER-BIONTECH - PURPLE TOP) 01/03/2021 Imm Admin: COVID-19 original vaccine, age 12+ yr, monovalent (PFIZER-BIONTECH - PURPLE TOP) Only the first 3 history entries have been loaded, but more history exists. CHIEF COMPLAINT: Malfunction of spinal cord stimulator HPI: Patient is a 58 year old female here for a preoperative exam. Pt has a history of lumbar fusion in 2000, and SCS placed in 2013. Pt states that the SCS no longer holds a charge. Pt complains of low back pain 5/10 describes pain as ache, intermittent sharp, stabbing and muscle spasm. Radiates to left leg. No alleviating factors. Standing aggravates pain. Pt discussed with surgeon and agrees to surgical intervention. REVIEW OF SYSTEMS: General: Negative for: unintentional weight change, malaise and fever. Neurological: Negative for: headaches, seizures and strokes. Respiratory: Positive for: obstructive sleep apnea and CPAP/BiPAP compliant. Negative for: asthma, COPD, tobacco use and URI < 2 weeks. Cardiovascular: Positive for: hyperlipidemia and hypertension Negative for: arrhythmia, CAD, chest pain, CHF and DVT/PE. GI: Positive for: GERD Negative for: abdominal pain, nausea and vomiting. : Negative for: dysuria, hematuria and renal failure. 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 Endocrine: Positive for: diabetes mellitus. Patient's diabetes mellitus is controlled by diet and oral agents. Negative for: hyperthyroidism and hypothyroidism. Hematology: Negative for: anemia, factor V Leiden, von Willebrand disease and chronic anti-coagulation/platelet meds (more content not included)... Normal [facility] STAPHYLOCOCCUS AUREUS AND MR SA SCREEN, PCR, NASALon 07-01-2024 S. aureus and MRSA panel DALIA+probe (Nose) Not detected Normal Not Detected [facility] Comment on above: Order Comment: Speci men Type: SWABOrdering Facility: [facility] Address: [address] [place] [address] Performed By: #### S APCR ####[facility] LABORATORYCLIA [id number] [place] [id number] [place] STAPHYLOCOCCUS AUREUS & MRSA SCREEN, PCR, NASALon 07-01-2024 Interpretation and review of laboratory results Normal [facility] S. aureus and MRSA panel DALIA+probe (Nose) Not detected Not Detected [facility] CNPNon 06-22-2024 CNPN Telephone (AGSPINE1) -- JESS MEEKS I ([id number]) 1965 F CHT Date Time Provider Department 06/22/24 NICOLE CATES AGSPINE1 During your visit today, we recorded the following information about you: Shun Aaron 06/22/2024 11:42 AM Signed Allergies As of Date: 06/22/2024 Noted Allergy Reaction ATORVASTATIN 03/10/2016 17 - Myalgia Comments: Muscle aches; resolved after stopped statin NAPROXEN 01/13/2019 4 - Hives NAPROXYN (NAPROXEN) 12/23/2010 4 - Hives PRAVASTATIN 09/01/2017 17 - Myalgia Comments: Did not tolerate RESTASIS (CYCLOSPORINE) 07/25/2019 14 - Other: See Comments Comments: Burning and redness in the eyes SEASONAL ALLERGIES 08/08/2022 14 - Other: See Comments WELLBUTRIN XL (BUPROPION) 08/25/2006 ZOLOFT (SERTRALINE) 02/13/2006 6 - Diarrhea IBUPROFEN 06/05/2020 2 - Rash Date Reviewed: 05/06/2024 Reviewed by: Ravi Turpin, RN - Fully Assessed Reason for Visit: Patient Update [1234] Cmt: BATTERY SWAP SUBMITTED Prescriptions as of 06/22/2024 - acetaminophen (TYLENOL ARTHRITIS ORAL) Take by mouth. - CPAP/BIPAP/OTHER Type .CPAPSettings into a note to see current settings/supplies/DME information. - Cetirizine 10 mg cap Take by mouth once daily. - diclofenac, EC, (VOLTAREN) 75 mg EC tablet Take 1 tablet by mouth twice daily as needed (for pain.). - cyclobenzaprine (FLEXERIL) 10 mg tablet Take 1 tablet by mouth three times daily as needed for muscle spasm. - lisinopril (ZESTRIL, PRINIVIL) 20 mg tablet Take 20 mg by mouth once daily. - metFORMIN ER (GLUCOPHAGE XR) 500 mg 24 hr tablet twice daily. - loratadine (CLARITIN) 10 mg tablet Take 10 mg by mouth once daily. - aqmxoys-ruaviorzh-qizrybt D3 500 mg-5 mcg (200 unit) per tablet Take 1 tablet by mouth twice daily with meals. - polyethylene glycol 3350 (MIRALAX, GLYCOLAX) 17 gram/dose powder Take by mouth once daily. - Minocycline HCl 50 mg tablet TAKE 1 PILL DAILY FOR 10 DAYS ONLY DURING FLARES - estradiol (ESTRACE) 0.01 % (0.1 mg/gram) vaginal cream APPLY A PEA SIZE AMOUNT OF CREAM TO FINGER AND LUBRICATE VAGINAL TISSUE 3 TIMES WEEKLY - DULoxetine (CYMBALTA) 60 mg capsule Take 1 capsule by mouth once daily. - rosuvastatin (CRESTOR) 5 mg tablet Take 1 tablet by mouth daily at bedtime. As directed - oxybutynin ER (DITROPAN XL) 10 mg 24 hr tablet TAKE 1 TABLET BY MOUTH 1 TIME PER DAY SE WERE DISCUSSED INCLUDING DRY MOUTH AND CONSTIPATION - Cholecalciferol, Vitamin D3, 2,000 unit cap Take 1 tablet by mouth twice daily. - Multivitamin capsule Take 1 capsule by mouth once daily. - ZINC ORAL Take by mouth as needed. - Ibuprofen 200 mg ORAL Cap Take by mouth every 4 hours as needed. FOR PAIN. Meds Comments as of 05/22/2016: Ginsenna Problem List As Of Date 06/22/2024 Noted Resolved Tobacco use disorder [F17.200] 01/07/2006 10/14/2016 Mixed hyperlipidemia [E78.2] 01/07/2006 SOMNOLENCE [R40.4] 01/07/2006 07/30/2016 INT HEMORRHOID W/O COMPL [K64.8] 01/07/2006 Essential hypertension [I10] 07/20/2006 DEPRESSIVE DISORDER NEC [F32.89] 09/22/2006 Allergic Rhinitis [J30.9] 05/01/2010 Fibroid uterus [D25.9] 04/14/2011 10/22/2013 Pelvic pain in female [R10.2] 04/14/2011 10/22/2013 Dysmenorrhea [N94.6] 04/14/2011 Postlaminectomy syndrome, lumbar region [M96.1] 02/03/2014 Myalgia and myositis, unspecified [[id number]] 02/03/2014 Other chronic postoperative pain [G89.28] 02/03/2014 Cervicalgia [M54.2] 02/03/2014 Ocular rosacea [L71.8] KAVON on CPAP [G47.33] Dysmetabolic syndrome [E88.810] 07/17/2015 Major depressive disorder, single episode, mode*11/19/2015 Controlled type 2 diabetes mellitus without com*04/20/2017 Excessive daytime sleepiness [G47.19] 03/24/2018 PLMD (periodic limb movement disorder) [G47.61] 07/20/2020 Hypersomnia [G47.10] 07/20/2020 Degeneration of intervertebral disc of lumbar r*08/08/2022 Pre-op examination [Z01.818] 04/27/2024 Malfunction of spinal cord stimulator (HCC) [T8*04/27/2024 Encounter Status:Closed by SHUN AARON on 06/22/24 [facility] CNPNon 05-17-2024 CNPN Telephone (AGSPINE1) -- JESS MEEKS I ([id number]) 1965 F T Date Time Provider Department 05/17/24 NICOLE CATES AGSPINE1 During your visit today, we recorded the following information about you: Allergies As of Date: 05/17/2024 Noted Allergy Reaction ATORVASTATIN 03/10/2016 17 - Myalgia Comments: Muscle aches; resolved after stopped statin NAPROXEN 01/13/2019 4 - Hives NAPROXYN (NAPROXEN) 12/23/2010 4 - Hives PRAVASTATIN 09/01/2017 17 - Myalgia Comments: Did not tolerate RESTASIS (CYCLOSPORINE) 07/25/2019 14 - Other: See Comments Comments: Burning and redness in the eyes SEASONAL ALLERGIES 08/08/2022 14 - Other: See Comments WELLBUTRIN XL (BUPROPION) 08/25/2006 ZOLOFT (SERTRALINE) 02/13/2006 6 - Diarrhea IBUPROFEN 06/05/2020 2 - Rash Date Reviewed: 05/06/2024 Reviewed by: Ravi Turpin, RN - Fully Assessed Prescriptions as of 06/08/2024 - acetaminophen (TYLENOL ARTHRITIS ORAL) Take by mouth. - CPAP/BIPAP/OTHER Type .CPAPSettings into a note to see current settings/supplies/DME information. - Cetirizine 10 mg cap Take by mouth once daily. - diclofenac, EC, (VOLTAREN) 75 mg EC tablet Take 1 tablet by mouth twice daily as needed (for pain.). - cyclobenzaprine (FLEXERIL) 10 mg tablet Take 1 tablet by mouth three times daily as needed for muscle spasm. - lisinopril (ZESTRIL, PRINIVIL) 20 mg tablet Take 20 mg by mouth once daily. - metFORMIN ER (GLUCOPHAGE XR) 500 mg 24 hr tablet twice daily. - loratadine (CLARITIN) 10 mg tablet Take 10 mg by mouth once daily. - yfeyhye-mvkfvxolv-csbbrci D3 500 mg-5 mcg (200 unit) per tablet Take 1 tablet by mouth twice daily with meals. - polyethylene glycol 3350 (MIRALAX, GLYCOLAX) 17 gram/dose powder Take by mouth once daily. - Minocycline HCl 50 mg tablet TAKE 1 PILL DAILY FOR 10 DAYS ONLY DURING FLARES - estradiol (ESTRACE) 0.01 % (0.1 mg/gram) vaginal cream APPLY A PEA SIZE AMOUNT OF CREAM TO FINGER AND LUBRICATE VAGINAL TISSUE 3 TIMES WEEKLY - DULoxetine (CYMBALTA) 60 mg capsule Take 1 capsule by mouth once daily. - rosuvastatin (CRESTOR) 5 mg tablet Take 1 tablet by mouth daily at bedtime. As directed - oxybutynin ER (DITROPAN XL) 10 mg 24 hr tablet TAKE 1 TABLET BY MOUTH 1 TIME PER DAY SE WERE DISCUSSED INCLUDING DRY MOUTH AND CONSTIPATION - Cholecalciferol, Vitamin D3, 2,000 unit cap Take 1 tablet by mouth twice daily. - Multivitamin capsule Take 1 capsule by mouth once daily. - ZINC ORAL Take by mouth as needed. - Ibuprofen 200 mg ORAL Cap Take by mouth every 4 hours as needed. FOR PAIN. Meds Comments as of 05/22/2016: Ginsenna Problem List As Of Date 05/17/2024 Noted Resolved Tobacco use disorder [F17.200] 01/07/2006 10/14/2016 Mixed hyperlipidemia [E78.2] 01/07/2006 SOMNOLENCE [R40.4] 01/07/2006 07/30/2016 INT HEMORRHOID W/O COMPL [K64.8] 01/07/2006 Essential hypertension [I10] 07/20/2006 DEPRESSIVE DISORDER NEC [F32.89] 09/22/2006 Allergic Rhinitis [J30.9] 05/01/2010 Fibroid uterus [D25.9] 04/14/2011 10/22/2013 Pelvic pain in female [R10.2] 04/14/2011 10/22/2013 Dysmenorrhea [N94.6] 04/14/2011 Postlaminectomy syndrome, lumbar region [M96.1] 02/03/2014 Myalgia and myositis, unspecified [[id number]] 02/03/2014 Other chronic postoperative pain [G89.28] 02/03/2014 Cervicalgia [M54.2] 02/03/2014 Ocular rosacea [L71.8] KAVON on CPAP [G47.33] Dysmetabolic syndrome [E88.810] 07/17/2015 Major depressive disorder, single episode, mode*11/19/2015 Controlled type 2 diabetes mellitus without com*04/20/2017 Excessive daytime sleepiness [G47.19] 03/24/2018 PLMD (periodic limb movement disorder) [G47.61] 07/20/2020 Hypersomnia [G47.10] 07/20/2020 Degeneration of intervertebral disc of lumbar r*08/08/2022 Pre-op examination [Z01.818] 04/27/2024 Malfunction of spinal cord stimulator (HCC) [T8*04/27/2024 Encounter Status:Closed by SHUN AARON on 06/08/24 Normal [facility] L3300.8200on 05-07-2024 VITAMIN B6 25.4 ug/L Normal 3.4-65.2 [facility] Comment on above: Order Comment: Test( s) [id number]-Bvxfdun B6was developed and its performance characteristicsdetermined by [facility]. It has not been cleared or approvedby the Food and Drug Administration. Result Comment: Defi ciency: <3.4 Marginal: 3.4 - 5.1 Adequate: >5.1 Performed By: #### L 501.080 #### [facility] [address] [place], [address] Vitamin B1, Thiamineon 05-07 VIT B1 THIAMINE 153.7 nmol/L Normal 66.5-200.0 [facility] Comment on above: Order Comment: Test( s) 147582-Eyjwnxu B6was developed and its performance characteristicsdetermined by [employer]. It has not been cleared or approvedby the Food and Drug Administration. Performed By: #### L 501.080 #### [facility] [address] [place], [address] NURSING PROGon 05-06-2024 NURSING PROG HNO ID: [id number] Author: RAVI TURPIN RN Service: Nursing Author Type: Registered Nurse Type: Nursing Progress Note Filed: 05/06/2024 13:52 Note Text: Pt informed at this time that surgery is cancelled related to pt eating toast with butter and jam for breakfast, finished at 8:30. Rep in room testing pts unit. Normal [facility] CBC W/Diff, Automatedon 07-0 Absolute Lymph 2.87 X10 3/uL Normal 0.83-4.51 [facility] Comment on above: Order Comment: Order Date: 12/29/23Order Info: 0184-1 - CBCD Performed By: #### L 500.4100, L500.4050, L501.9985, L503.0105, L506.1000, L100.0100 ####[facility] [address] [place], [address] Absolute Neut 4.0 X10 3/uL Normal 2.0-7.7 [facility] Comment on above: Order Comment: Order Date: 12/29/23Order Info: 0184-1 - CBCD Performed By: #### L 500.4100, L500.4050, L501.9985, L503.0105, L506.1000, L100.0100 ####[facility] [address] [place], [address] Basophils/100 WBC (Bld) 0.6 % Normal 0-1 [facility] Comment on above: Order Comment: Order Date: 12/29/23Order Info: 0184-1 - CBCD Performed By: #### L 500.4100, L500.4050, L501.9985, L503.0105, L506.1000, L100.0100 ####[facility] [address] [place], [address] Eosinophils/100 WBC (Bld) 2.6 % Normal 0-5 [facility] Comment on above: Order Comment: Order Date: 12/29/23Order Info: 0184-1 - CBCD Performed By: #### L 500.4100, L500.4050, L501.9985, L503.0105, L506.1000, L100.0100 ####[facility] [address] [place], [address] Erythrocyte distribution width (RBC) [Ratio] 13.3 % Normal 11.6-14.6 [facility] Comment on above: Order Comment: Order Date: 12/29/23Order Info: 0184-1 - CBCD Performed By: #### L 500.4100, L500.4050, L501.9985, L503.0105, L506.1000, L100.0100 ####[facility] [address] [place], [address] Hematocrit (Bld) [Volume fraction] 40.3 % Normal 37-47 [facility] Comment on above: Order Comment: Order Date: 12/29/23Order Info: 0184-1 - CBCD Performed By: #### L 500.4100, L500.4050, L501.9985, L503.0105, L506.1000, L100.0100 ####[facility] [address] [place], [address] Hemoglobin (Bld) [Mass/Vol] 13.0 g/dL Normal 12.0-15.0 [facility] Comment on above: Order Comment: Order Date: 12/29/23Order Info: 0184-1 - CBCD Performed By: #### L 500.4100, L500.4050, L501.9985, L503.0105, L506.1000, L100.0100 ####[facility] [address] [place], [address] IG% 0.600 Normal 0.0-0.9 [facility] Comment on above: Order Comment: Order Date: 12/29/23Order Info: [id number] - CBCD Result Comment: IG% - Immature Granulocytes (promyelocytes, myelocytes and metamyelocytes) > 1% indicates that a LEFT SHIFT is Present. Performed By: #### L 500.4100, L500.4050, L501.9985, L503.0105, L506.1000, L100.0100 ####[facility] [address] [place], [address] Lymphocytes/100 WBC (Bld) 36.8 % Normal 19-41 [facility] Comment on above: Order Comment: Order Date: 12/29/23Order Info: 0184-1 - CBCD Performed By: #### L 500.4100, L500.4050, L501.9985, L503.0105, L506.1000, L100.0100 ####[facility] [address] [place], [address] MCH (RBC) [Entitic mass] 27.6 pg Normal 27.0-32.0 [facility] Comment on above: Order Comment: Order Date: 12/29/23Order Info: 0184-1 - CBCD Performed By: #### L 500.4100, L500.4050, L501.9985, L503.0105, L506.1000, L100.0100 ####[facility] [address] [place], [address] MCHC (RBC) [Mass/Vol] 32.3 g/dL Normal 32-36 [facility] Comment on above: Order Comment: Order Date: 12/29/23Order Info: 0184-1 - CBCD Performed By: #### L 500.4100, L500.4050, L501.9985, L503.0105, L506.1000, L100.0100 ####[facility] [address] [place], [address] MCV (RBC) [Entitic vol] 85.6 fL Normal 81-99 [facility] Comment on above: Order Comment: Order Date: 12/29/23Order Info: 0184-1 - CBCD Performed By: #### L 500.4100, L500.4050, L501.9985, L503.0105, L506.1000, L100.0100 ####[facility] [address] [place], [address] Monocytes/100 WBC (Bld) 7.4 % Normal 0-10 [facility] Comment on above: Order Comment: Order Date: 12/29/23Order Info: 0184-1 - CBCD Performed By: #### L 500.4100, L500.4050, L501.9985, L503.0105, L506.1000, L100.0100 ####[facility] [facility] [address] [place], [address] Neutrophils/100 WBC (Bld) 52.0 % Normal 47-70 [facility] Comment on above: Order Comment: Order Date: 12/29/23Order Info: [id number] - CBCD Performed By: #### L 500.4100, L500.4050, L501.9985, L503.0105, L506.1000, L100.0100 ####[facility] [address] [place], [address] Nucleated RBC (Bld) [#/Vol] 0 10*3/uL Normal 0-5 [facility] Comment on above: Order Comment: Order Date: 12/29/23Order Info: [id number] - CBCD Performed By: #### L 500.4100, L500.4050, L501.9985, L503.0105, L506.1000, L100.0100 ####[facility] [address] [place], [address] Platelet mean volume (Bld) [Entitic vol] 10.8 fL Normal 6.2-12.0 [facility] Comment on above: Order Comment: Order Date: 12/29/23Order Info: [id number] - CBCD Performed By: #### L 500.4100, L500.4050, L501.9985, L503.0105, L506.1000, L100.0100 ####[facility] [address] [place], [address] Platelets (Bld) [#/Vol] 310 10*3/uL Normal 150-450 [facility] Comment on above: Order Comment: Order Date: 12/29/23Order Info: [id number] - CBCD Performed By: #### L 500.4100, L500.4050, L501.9985, L503.0105, L506.1000, L100.0100 ####[facility] [address] [place], [address] RBC (Bld) [#/Vol] 4.71 10*6/uL Normal 4.2-5.4 [facility] Comment on above: Order Comment: Order Date: 12/29/23Order Info: [id number] - CBCD Performed By: #### L 500.4100, L500.4050, L501.9985, L503.0105, L506.1000, L100.0100 ####[facility] [address] [place], [address] RDW SD 41.2 fl Normal 35.1-43.9 [facility] Comment on above: Order Comment: Order Date: 12/29/23Order Info: [id number] - CBCD Performed By: #### L 500.4100, L500.4050, L501.9985, L503.0105, L506.1000, L100.0100 ####[facility] [address] [place], [address] WBC (Bld) [#/Vol] 7.8 10*3/uL Normal 4.4-11.0 [facility] Comment on above: Order Comment: Order Date: 12/29/23Order Info: [id number] - CBCD Performed By: #### L 500.4100, L500.4050, L501.9985, L503.0105, L506.1000, L100.0100 ####[facility] [address] [place], [address] Comprehensive Metabolic Prof ilon 05-03-2024 Albumin [Mass/Vol] 4.1 g/dL Normal 3.2-5.0 [facility] Comment on above: Order Comment: Order Date: 12/29/23Order Info: [id number] - CMPOrder Info: [id number] - LIPID Performed By: #### L 500.4100, L500.4050, L501.9985, L503.0105, L506.1000, L100.0100 ####[facility] [address] [place], [address] Albumin/Globulin [Mass ratio] 1.1 {ratio} Normal 0.9-2.4 [facility] Comment on above: Order Comment: Order Date: 12/29/23Order Info: [id number] - CMPOrder Info: [id number] - LIPID Performed By: #### L 500.4100, L500.4050, L501.9985, L503.0105, L506.1000, L100.0100 ####[facility] [address] [place], [address] ALK P 82 U/L Normal 45-117 [facility] Comment on above: Order Comment: Order Date: 12/29/23Order Info: [id number] - CMPOrder Info: [id number] - LIPID Performed By: #### L 500.4100, L500.4050, L501.9985, L503.0105, L506.1000, L100.0100 ####[facility] [address] [place], [address] ALT [Catalytic activity/Vol] 43 U/L Normal 13-56 [facility] Comment on above: Order Comment: Order Date: 12/29/23Order Info: [id number] - CMPOrder Info: [id number] - LIPID Performed By: #### L 500.4100, L500.4050, L501.9985, L503.0105, L506.1000, L100.0100 ####[facility] [address] [place], [address] AST [Catalytic activity/Vol] 32 U/L Normal 15-37 [facility] Comment on above: Order Comment: Order Date: 12/29/23Order Info: [id number] - CMPOrder Info: [id number] - LIPID Performed By: #### L 500.4100, L500.4050, L501.9985, L503.0105, L506.1000, L100.0100 ####[facility] [address] [place], [address] Bilirubin [Mass/Vol] 0.40 mg/dL Normal 0.20-1.00 [facility] Comment on above: Order Comment: Order Date: 12/29/23Order Info: [id number] - CMPOrder Info: [id number] - LIPID Result Comment: For patients on eltrombopag therapy, use of Dimension [place] TBIL is not recommended. Performed By: #### L 500.4100, L500.4050, L501.9985, L503.0105, L506.1000, L100.0100 ####[facility] [address] [place], [address] BUN/CRE 16.8 RATIO Normal 10-20 [facility] Comment on above: Order Comment: Order Date: 12/29/23Order Info: [id number] - CMPOrder Info: [id number] - LIPID Performed By: #### L 500.4100, L500.4050, L501.9985, L503.0105, L506.1000, L100.0100 ####[facility] [address] [place], [address] CA,Total 9.7 mg/dL Normal 8.5-10.1 [facility] Comment on above: Order Comment: Order Date: 12/29/23Order Info: [id number] - CMPOrder Info: [id number] - LIPID Performed By: #### L 500.4100, L500.4050, L501.9985, L503.0105, L506.1000, L100.0100 ####[facility] [address] [place], [address] Chloride [Moles/Vol] 105 mmol/L Normal 98-107 [facility] Comment on above: Order Comment: Order Date: 12/29/23Order Info: [id number] - CMPOrder Info: [id number] - LIPID Performed By: #### L 500.4100, L500.4050, L501.9985, L503.0105, L506.1000, L100.0100 ####[facility] [address] [place], [address] CO2 [Moles/Vol] 28.0 mmol/L Normal 21.0-32.0 [facility] Comment on above: Order Comment: Order Date: 12/29/23Order Info: [id number] - CMPOrder Info: [id number] - LIPID Performed By: #### L 500.4100, L500.4050, L501.9985, L503.0105, L506.1000, L100.0100 ####[facility] [address] [place], [address] Creatinine [Mass/Vol] 0.77 mg/dL Normal 0.55-1.02 [facility] Comment on above: Order Comment: Order Date: 12/29/23Order Info: [id number] - CMPOrder Info: [id number] - LIPID Result Comment: The validity of the calculated GFR GFRAA in patients over 70 years has not been determined. Clinical correlation is essential. Performed By: #### L 500.4100, L500.4050, L501.9985, L503.0105, L506.1000, L100.0100 ####[facility] [address] [place], [address] EST GFR - AA 98 mL/min Normal >60 [facility] Comment on above: Order Comment: Order Date: 12/29/23Order Info: [id number] - CMPOrder Info: [id number] - LIPID Result Comment: Afri can Egyptian GFR Calc Performed By: #### L 500.4100, L500.4050, L501.9985, L503.0105, L506.1000, L100.0100 ####[facility] [address] [place], [address] GAP 5 Normal 5-15 [facility] Comment on above: Order Comment: Order Date: 12/29/23Order Info: [id number] - CMPOrder Info: [id number] - LIPID Performed By: #### L 500.4100, L500.4050, L501.9985, L503.0105, L506.1000, L100.0100 ####[facility] [address] [place], [address] GFR/1.73 sq M.predicted among non-blacks MDRD (S/P/Bld) [Vol rate/Area] 81 mL/min/{1.73_m2} Normal >60 [facility] Comment on above: Order Comment: Order Date: 12/29/23Order Info: [id number] - CMPOrder Info: [id number] - LIPID Result Comment: Non- GFR Calc Performed By: #### L 500.4100, L500.4050, L501.9985, L503.0105, L506.1000, L100.0100 ####[facility] [address] [place], [address] Globulin (S) [Mass/Vol] 3.6 g/dL Normal 2.2-4.2 [facility] Comment on above: Order Comment: Order Date: 12/29/23Order Info: [id number] - CMPOrder Info: [id number] - LIPID Performed By: #### L 500.4100, L500.4050, L501.9985, L503.0105, L506.1000, L100.0100 ####[facility] [address] [place], [address] Glucose [Mass/Vol] 106 mg/dL Normal 74-106 [facility] Comment on above: Order Comment: Order Date: 12/29/23Order Info: [id number] - CMPOrder Info: [id number] - LIPID Result Comment: Fast ing Glucose result from 100 to 125 mg/dL suggests IMPAIRED HOMEOSTASIS per A.D.A. criteria. Performed By: #### L 500.4100, L500.4050, L501.9985, L503.0105, L506.1000, L100.0100 ####[facility] [address] [place], [address] Potassium [Moles/Vol] 4.2 mmol/L Normal 3.5-5.1 [facility] Comment on above: Order Comment: Order Date: 12/29/23Order Info: [id number] - CMPOrder Info: [id number] - LIPID Performed By: #### L 500.4100, L500.4050, L501.9985, L503.0105, L506.1000, L100.0100 ####[facility] [address] [place], [address] Sodium [Moles/Vol] 138 mmol/L Normal 136-145 [facility] Comment on above: Order Comment: Order Date: 12/29/23Order Info: [id number] - CMPOrder Info: [id number] - LIPID Performed By: #### L 500.4100, L500.4050, L501.9985, L503.0105, L506.1000, L100.0100 ####[facility] [address] [place], [address] T PROT 7.7 g/dL Normal 6.4-8.2 [facility] Comment on above: Order Comment: Order Date: 12/29/23Order Info: [id number] - CMPOrder Info: [id number] - LIPID Performed By: #### L 500.4100, L500.4050, L501.9985, L503.0105, L506.1000, L100.0100 ####[facility] [address] [place], [address] Urea nitrogen [Mass/Vol] 13 mg/dL Normal 7-18 [facility] Comment on above: Order Comment: Order Date: 12/29/23Order Info: [id number] - CMPOrder Info: [id number] - LIPID Performed By: #### L 500.4100, L500.4050, L501.9985, L503.0105, L506.1000, L100.0100 ####[facility] [address] [place], [address] Hemoglobin A1con 05-03-2024 HbA1c (Bld) [Mass fraction] 6.5 % High 3.8-5.6 [facility] Comment on above: Order Comment: Order Date: 12/29/23Order Info: [id number] - A1C Result Comment: Norm al < 5.7 % Prediabetic 5.7 - 6.4 % Diabetic >or= 6.5 % Please note range changes. Performed By: #### L 500.4100, L500.4050, L501.9985, L503.0105, L506.1000, L100.0100 ####[facility] [address] [place], [address] Lipid Profileon 05-03-2024 Cholesterol [Mass/Vol] 159 mg/dL Normal 200 [facility] Comment on above: Order Comment: Order Date: 12/29/23Order Info: [id number] - CMPOrder Info: [id number] - LIPID Result Comment: <200 mg/dL Desirable 200-240 mg/dL Borderline >240 mg/dL High Risk Performed By: #### L 500.4100, L500.4050, L501.9985, L503.0105, L506.1000, L100.0100 ####[facility] [address] [place], [address] Cholesterol in HDL [Mass/Vol] 49 mg/dL Normal [facility] Comment on above: Order Comment: Order Date: 12/29/23Order Info: [id number] - CMPOrder Info: [id number] - LIPID Result Comment: The drugs N-Acetylcysteine and Metamizole may falsely depress this assay. Reference Range HDL <40 mg/dL Low HDL Cholesterol HDL >or= 60 mg/dL High HDL Cholesterol Performed By: #### L 500.4100, L500.4050, L501.9985, L503.0105, L506.1000, L100.0100 ####[facility] [address] [place], [address] Cholesterol in LDL [Mass/Vol] 53 mg/dL Normal 0-130 [facility] Comment on above: Order Comment: Order Date: 12/29/23Order Info: [id number] - CMPOrder Info: [id number] - LIPID Performed By: #### L 500.4100, L500.4050, L501.9985, L503.0105, L506.1000, L100.0100 ####[facility] [address] [place], [address] Cholesterol in VLDL [Mass/Vol] 57 mg/dL High 5-40 [facility] Comment on above: Order Comment: Order Date: 12/29/23Order Info: [id number] - CMPOrder Info: [id number] - LIPID Performed By: #### L 500.4100, L500.4050, L501.9985, L503.0105, L506.1000, L100.0100 ####[facility] [address] [place], [address] Triglyceride [Mass/Vol] 287 mg/dL [facility] Comment on above: Order Comment: Order Date: 12/29/23Order Info: [id number] - CMPOrder Info: [id number] - LIPID Result Comment: The drugs N-Acetylcysteine and Metamizole may falsely depress this assay. Serum Triglycerides Reference Interval Normal <150 mg/dL Borderline high 150 - 199 mg/dL High 200 - 499 mg/dL Very High > or = 500 mg/dL Performed By: #### L 500.4100, L500.4050, L501.9985, L503.0105, L506.1000, L100.0100 ####[facility] [address] [place], [address] Urinalysis, Completeon 05-03 BACTERIA 0 SEEN Normal None Seen [facility] Comment on above: Order Comment: Urine , Random Performed By: #### L 501.080 #### [facility] [address] [place], [address] EPI,SQUAMOUS 0 SEEN Normal 5-10 [facility] Comment on above: Order Comment: Urine , Random Performed By: #### L 501.080 #### [facility] [address] [place], [address] Mucus Ql (Urine sed) 0 SEEN Normal [facility] Comment on above: Order Comment: Urine , Random Performed By: #### L 501.080 #### [facility] [address] [place], [address] RBC 0 SEEN Normal 0-5 [facility] Comment on above: Order Comment: Urine , Random Performed By: #### L 501.080 #### [facility] [address] [place], [address] WBC 0 SEEN Normal 0-5 [facility] Comment on above: Order Comment: Urine , Random Performed By: #### L 501.080 #### [facility] [address] [place], [address] Vitamin B12on 05-03-2024 Cobalamin (Vitamin B12) [Mass/Vol] 935 pg/mL High 211-911 [facility] Comment on above: Order Comment: Order Date: 12/29/23Order Info: [id number] - [id number] Info: [id number] - VITD25 Performed By: #### L 500.4100, L500.4050, L501.9985, L503.0105, L506.1000, L100.0100 ####[facility] [address] [place], [address] Vitamin D,25 Hydroxyon 05-03 Vitamin D 25-OH 29.9 ng/mL Normal [facility] Comment on above: Order Comment: Order Date: 12/29/23Order Info: [id number] - [id number] Info: [id number] - VITD25 Result Comment: Clau min D 25(OH) Status Range Deficiency <20 ng/mL (50nmol/L) Insufficiency 20 - 30 ng/mL (50 - 75 nmol/L) Sufficiency 30 - 100 ng/mL (75 - 250 nmol/L) Toxicity >100 ng/mL (>250 nmol/L) Performed By: #### L 500.4100, L500.4050, L501.9985, L503.0105, L506.1000, L100.0100 ####[facility] [address] [place], [address] HISTORY PHYSICALon HISTORY PHYSICAL HNO ID: [id number] Author: SOLA KINCAID APRN.SANDER HAND Service: ? Author Type: Nurse Practitioner Type: H&P Filed: 04/29/2024 12:05 Note Text: [facility] HISTORY AND PHYSICAL EXAMINATION SERVICE DATE: 04/27/2024 SERVICE TIME: 12:03 PM PRIMARY CARE PHYSICIAN: No primary care provider on file. Assessment Patient has the following medical conditions which may affect jose-operative course: @OBESITYCLASS@ Pre-op examination Patient has the following medical conditions which may affect jose-operative course addressed in assessment and plan today. Malfunction of spinal cord stimulator (HCC) Surgery scheduled for 05/06/[address] Cates Essential hypertension Lisinopril do not take day of surgery Mixed hyperlipidemia Statin Okay to take day of surgery Controlled type 2 diabetes mellitus without complication, without long-term current use of insulin (HCC) Metformin do not take day of surgery Last A1c 6.28 December 2023 KAVON on CPAP Patient compliant with CPAP Peterson Activity Status Index: METS: Climb a flight of stairs or walk up a hill (5.50 METs) DASI Score: 5.5 Patient denies any chest pain or undue shortness of breath with the above physical activity. Clinical Frailty Scale: 2. Well ARISCAT Score: Age: 51-80 Preoperative SpO2: >=96% Respiratory infection in the last month: No Preoperative anemia: No Duration of surgery: 2-3 hrs Emergency procedure: No ARISCAT Score: ANESTHESIA FINDINGS: Intubation History: No history of difficult intubation Significant Anesthesia Considerations: none Airway History: No history of difficult airway I - PHYSICAL EVALUATION AIRWAY Patient intubated: No. DENTAL Dental findings: teeth intact. II - ANESTHESIA PLAN Anesthetic Plan: MAC Beta Taina Monitoring Plan Post Procedure Analgesic Plan Prepared for Surgery: . Patient states no optimizations requested by surgeon. CONSULTS: Planned Anesthetic: MAC The Following Tests/Procedures Have Been Initiated: Orders Placed This Encounter STAPH AUREUS PCR Standing Status: Future Standing Expiration Date: 07/29/2024 mupirocin (BACTROBAN) 2 % ointment Sig: Use in the nose two times a day for 5 days. Apply 1/2 inch to each nostril with a Q-tip twice daily x 5 days. Start on 05/01/2024 Patient should start on May 01, 2024. Dispense: 22 g Refill: 0 REASON FOR VISIT: Jess Meeks is a 58 year old female who is scheduled for Procedure(s): INSRT OR RPLCMT SPINAL CORD NSTIM PULSE GENERATOR OR RECVER W/ POCKET CREATE CONNECT BTWN ELTRD ARRAY AND PULSE GENERATOR OR RECVR (Bilateral) at the request of Dr. Nicole Cates for routine HANDP. My final recommendation will be communicated back to the requesting physician by way of shared medical record or letter. Subjective The patient has the following: ACTIVE PROBLEM LIST Mixed Hyperlipidemia Internal Hemorrhoids Without Mention of Complication Essential Hypertension Depressive Disorder, Not Elsewhere Classified Allergic Rhinitis Dysmenorrhea Postlaminectomy Syndrome, Lumbar Region Myalgia and Myositis, Unspecified Other Chronic Postoperative Pain Cervicalgia Ocular Rosacea Kavon On Cpap Dysmetabolic Syndrome Major Depressive Disorder, Single Episode, Moderate (Hcc) Controlled Type 2 Diabetes Mellitus Without Complication, Without Long-Term Current Use of Insulin (Hcc) Excessive Daytime Sleepiness Plmd (Periodic Limb Movement Disorder) Hypersomnia Degeneration of Intervertebral Disc of Lumbar Region Pre-Op Examination Malfunction of Spinal Cord Stimulator (Hcc) COVID-19 Immunization Status Overdue - Covid-19 Vaccine () Overdue since 06/26/2023 08/23/2021 Imm Admin: COVID-19 original vaccine, age 12+ yr, monovalent (PFIZER-BIONTECH - PURPLE TOP) 01/24/2021 Imm Admin: COVID-19 original vaccine, age 12+ yr, monovalent (PFIZER-BIONTECH - PURPLE TOP) 01/03/2021 Imm Admin: COVID-19 original vaccine, age 12+ yr, monovalent (PFIZER-BIONTECH - PURPLE TOP) Only the first 3 history entries have been loaded, but more history exists. CHIEF COMPLAINT: The reason for this visit is to perform a comprehensive review of the patient's past medical history, assess their current health status and obtain any additional testing required based on anesthesia guidelines. We will also identify any potential anesthesia problems or contraindications to the planned procedure. HPI: The patient is a 58-year-old white female presenting to presurgical testing. Patient is status post lumbar spine fusion and a spinal cord stimulator implant in 2013. Patient states her battery does not charge very well at all for the past 1 year. She continues to have neck pain and lower back pain described as dull intermittently. After discussion with the surgeon the patient agrees to surgical intervention. REVIEW OF SYSTEMS: General: Negative f (more content not included)... Normal [facility] STAPHYLOCOCCUS AUREUS AND MR SA SCREEN, PCR, NASALon 07-05-2024 S. aureus and MRSA panel DALIA+probe (Nose) Not detected Normal Not Detected [facility] Comment on above: Order Comment: Hosseini men Type: SWAB Ordering Facility: [facility] Address: [address] [id number] Performed By: #### S APCR #### [facility] CLIA [id number] [address] [place] [address] [place] STAPHYLOCOCCUS AUREUS & MRSA SCREEN, PCR, NASALon 04-29-2024 Interpretation and review of laboratory results Normal [facility] S. aureus and MRSA panel DALIA+probe (Nose) Not detected Not Detected [facility] CNOVon 03-16-2024 CNOV Office Visit (AGSPIN E3) -- JEANNAJESS Hope ([id number]) 1965 F T Date Time Provider Department 03/16/24 1:30 PM NICOLE CATES AGSPINE3 During your visit today, we recorded the following information about you: Pulse Respiration 78/minute 16/minute Malik Pascual LPN 03/16/2024 3:57 PM Signed Review of Systems Constitutional: Negative for activity change, chills, fever and unexpected weight change. Genitourinary: Negative for difficulty urinating. Musculoskeletal: Positive for arthralgias, back pain, gait problem, myalgias, neck pain and neck stiffness. Negative for joint swelling. Knee hurts some days mostly right. No neck pain or stiffness today. Neurological: Positive for numbness. Negative for weakness and headaches. Psychiatric/Behavioral: Negative for dysphoric mood, sleep disturbance and suicidal ideas. The patient is not nervous/anxious. Nicole Cates MD 03/16/2024 3:57 PM Signed [facility] Today's Date: 03/16/2024 Name: Jess Hope Jeanna : 1965 Purpose: Follow-up Patient Evaluation - This is an established patient, returning today for continued evaluation and management of the chief complaint noted below, SCS consult Chief complaint: neck pain, lower back pain Referring Clinician: Self Pertinent Past Medical History: Diabetes, uterine fibroids, GERD, HTN, DJD, KAVON on CPAP periodic limb movement disorder, myalgia, HL, Pertinent Past Surgeries: S/p lumbar spine fusion, s/p SCS implant (2013) __ Plan at last visit: PLAN: Jess Meeks would benefit from the following to reach personal goals for decreasing pain, improving function and work participation, and/or improving quality of life: Medications: - continue Gabapentin 600-900 QHS, Diclofenac 75mg BID vs Nabumetone 500mg every day prn, Flexeril 10mg TID, Duloxetine 60mg every day. Pt encouraged to wean NSAIDs as tolerated Interventional Procedures: SCS battery exchange (Ntirety Sci - MRI Conditional leads) Studies: X-ray: Thoracic Spine, X-ray: Lumbar Spine Functional Yarsanism: NONE Referrals: No additional considerations at present Follow-up: after SCS battery exchange Depending on response to the above plan, consider: MRI L-spine after upgrade to MRI conditional IPG Interval History: Overall pain and functional disability since last visit: Unchanged New Complaints since last visit: No Today, pt reports that she completed her XR T/L-spine as instructed at her last OV. She has been scheduled for SCS battery exchange on 05/06/24. She continues to reports that she normally has close to 100% relief with her SCS. However, she reports that since September 2023, she has been unable to charge her system past 2 bars on her remote, with 3-4 days of total battery life with each charge. She reports that her external utilities manager will beep and tell her that her charging is done after 10min as opposed to 1-2hours, however after removing her utilities manager she has very limited duration of battery life. She reports that when her SCS is working it provides close to 100% relief of her lower back and leg symptoms. Patient normally that she has close to 100% relief from her SCS system with regards to her lower back pain and bilateral L>R lateral thigh pain to the level of the knee. With regards to her neck pain, patient reports that she has had significant benefit from her cervical RFA however she reports that it is unclear what percentage is due to her NSAID therapy as she has continued to take Nabumetone 400mg every day vs Diclofenac 75mg po BID as these have relieved almost all of her neck pain in the past. Chi has ongoing relief from L-sided cervical RFA, with manageable pain relief since her last cRFA in July 2022. She deferred R-sided cervical RFA due to sig increase in pain after her L-sided cervical RFA procedure which improved over time, and manageable symptoms on the R-side. Recall: Patient was last seen on 06/17/[address] C-spine from 05/2020 showed multilevel degenerative changes with foraminal and central canal stenosis - most prominent over C6-7 level. She has had CESIs and left cervical facet RFAs in the past for treatment with >75% relief for ~8 months from prior RFAs. She also has a SCS in place for low back pain d/t post-laminectomy syndrome - implanted in 2013 Dr. Hernandez. She was further noted to have owngoing lower back pain with muscle spasms and occasional radicular leg pain. At that visit, plan was made to repeat a cervical RFA at C3/4, C4/5 and C5/6 on the left which she underwent on 09/17/21. She was further planned for SCS reprogramming to assess for benefit of new programming vs need for new IPG. Patient repor (more content not included)... Normal [facility] XR LUMBAR 4V AP/LAT/ FLEX/EX Ton 01-14-2024 XR LUMBAR 4V AP/LAT/ FLEX/EXT * * *Final Report* * * DATE OF EXAM: Jan 14 2024 2:23PM [id number] - XR LUMBAR 4V AP/LAT/ FLEX/EXT / PROCEDURE REASON: multiple diagnoses * * * * Physician Interpretation * * * * EXAM: LUMBAR SPINE, 4 VIEWS; THORACIC SPINE, 3 VIEWS CLINICAL: TECHNIQUE: AP, lateral coned down lateral COMPARISON: RESULTS: Counting reference: Anatomic Variant: None. The first rib-bearing vertebral bodies considered T1. L4-5 is considered the level of the iliac crest and assume there are 5 lumbar-type vertebrae. There are 12 thoracic and 5 lumbar vertebrae. Bones are osteopenic. Degenerative disc disease throughout the thoracic spine prominent thoracic kyphosis centered at T6. Vertebral bodies and pedicles are intact. There are neurostimulator wires present with the tips of these at the level of T7. Mild dextroscoliosis of the lumbar spine centered at L3. Status post L5/S1 interbody fusion and posterior pedicle screw and dania fixation with laminectomy at L5. Mild degenerative disc disease at L2/L3 and moderate to marked narrowing at L3/L4 and L4/L5 disc spaces. Facet degenerative changes at L2-L4. Battery pack for the neurostimulator wires is present is the right flank, the wires anteriorly at the T12/L1 level. IMPRESSION: MULTILEVEL DEGENERATIVE DISC DISEASE OF THE THORACIC AND LUMBAR SPINE. DEXTROSCOLIOSIS OF LUMBAR SPINE. FUSION AT L5/S1 WITH LAMINECTOMY AT L5. DEXTROSCOLIOSIS OF THE LUMBAR SPINE. Senior Planning Analyst: PSCB Transcribe Date/Time: Jan 18 2024 2:40P Dictated by : LUCY KRUSE MD This examination was interpreted and the report reviewed and electronically signed by: LUCY KRUSE MD on Jan 18 2024 2:45PM EST [id number] Normal [facility] XR THORACIC 3V AP/LAT/SWIMME RSon 01-14-2024 XR THORACIC 3V AP/LAT/SWIMMERS * * *Final Report* * * DATE OF EXAM: Jan 14 2024 2:23PM [id number] - XR THORACIC 3V AP/LAT/SWIMMERS / PROCEDURE REASON: multiple diagnoses * * * * Physician Interpretation * * * * EXAM: LUMBAR SPINE, 4 VIEWS; THORACIC SPINE, 3 VIEWS CLINICAL: TECHNIQUE: AP, lateral coned down lateral COMPARISON: RESULTS: Counting reference: Anatomic Variant: None. The first rib-bearing vertebral bodies considered T1. L4-5 is considered the level of the iliac crest and assume there are 5 lumbar-type vertebrae. There are 12 thoracic and 5 lumbar vertebrae. Bones are osteopenic. Degenerative disc disease throughout the thoracic spine prominent thoracic kyphosis centered at T6. Vertebral bodies and pedicles are intact. There are neurostimulator wires present with the tips of these at the level of T7. Mild dextroscoliosis of the lumbar spine centered at L3. Status post L5/S1 interbody fusion and posterior pedicle screw and dania fixation with laminectomy at L5. Mild degenerative disc disease at L2/L3 and moderate to marked narrowing at L3/L4 and L4/L5 disc spaces. Facet degenerative changes at L2-L4. Battery pack for the neurostimulator wires is present is the right flank, the wires anteriorly at the T12/L1 level. IMPRESSION: MULTILEVEL DEGENERATIVE DISC DISEASE OF THE THORACIC AND LUMBAR SPINE. DEXTROSCOLIOSIS OF LUMBAR SPINE. FUSION AT L5/S1 WITH LAMINECTOMY AT L5. DEXTROSCOLIOSIS OF THE LUMBAR SPINE. Senior Planning Analyst: MANASA Transcribe Date/Time: Jan 18 2024 2:40P Dictated by : LUCY KRUSE MD This examination was interpreted and the report reviewed and electronically signed by: LUCY KRUSE MD on Jan 18 2024 2:45PM EST [id number] Normal [facility] CNPNon 01-01-2024 CNPN Telephone (AGSPINE3) -- JESS MEEKS I ([id number]) 1965 F T Date Time Provider Department 01/01/24 NICOLE CATES AGSPINE3 During your visit today, we recorded the following information about you: Alyson Moya 01/01/2024 10:18 AM Signed Submitted to [facility] on 12/31/23 for prior Auth. Case # [id number]. This is pending approval. Alyson Moya [place] to Dr. Sathish Edmonds, Spinal Cord Stimulator, Peripheral Nerve Stimulator, [facility] [place] [place] [address] P: [phone] ext. [phone] F: [phone] Alyson Moya 01/13/2024 3:39 PM Signed 12/31/23 Griffin, Alyson 01/13/2024 3:40 PM Signed 01/01/24 Griffin, Alyson 01/13/2024 3:41 PM Signed 01/05/24 Griffin, Alyson 01/13/2024 3:46 PM Addendum 01/05/24 Patient was last seen on 12/23/23 and has not been seen since 05/28/22 before that. Patient also has not gotten her x-rays done that were ordered for her. Alyson Walker 01/13/2024 3:46 PM Signed 01/05/24 @Alyson Manrique (Customer) The notes from 12/23/2023 do not mention that the risks/benefits of the procedure were discussed, and this is something that [facility] (on behalf of [facility]) requires. Also, per notes, her patient's SCS was recently interrogated, do you have a copy of that report that you could upload? If you wish to submit the request as is, with no additional documentation, please let us know. Thank you. Alyson Moya 01/13/2024 3:46 PM Signed 01/05/24 I do not have that information. I have sent a message to the [facility] [employer] to see if they have it. Alyson Walker 01/13/2024 3:47 PM Signed 01/06/24 Just uploaded the interrogation report. Alyson Walker 01/13/2024 3:47 PM Signed 01/07/24 @Alyson Manrique (Customer) Thank you for uploading the interrogation report. Would you like us to submit this request to insurance as is? Please note that [facility] (on behalf of [facility]) requires office notes that indicate that the surgical plan with risks and benefits were discussed with the patient. Please advise. Thank you. Alyson Moya 01/13/2024 3:48 PM Signed 01/08/24 All of that information should have been in the office visit note from 12/23/23. Alyson Walker 01/13/2024 3:48 PM Signed 01/11/24 @Alyson Manrique (Customer) Hello, we have submitted the preauthorization request to [facility] and is now pending review. We will continue to follow up and will update you accordingly. Thank you. lAyson Moya 01/13/2024 3:49 PM Signed 01/13/24 @Alyson Manrique (Customer) [place] and Adam Sanders, we followed up with Raghav / [facility] [place] today. The SCS Revision PA request is in nurse review, pending additional medical information: Please provide, 1.) Risk and benefit discussion, 2.) XR report and 3.) Interrogation Report. If additional documentation is available, please upload and we will gladly forward to [facility]. Thank you for allowing us to serve your patients. @[facility] Alyson Aguirre 01/13/2024 3:49 PM Signed 01/13/24 The risk and benefit discussion was on the 12/23/23 office visit note that was sent in. I sent in the interrogation report last week. Patient still has not had her X-rays done yet. Alyson Alyson Marcelo 01/13/2024 3:49 PM Signed 01/13/24 @Alyson Manrique (Customer) [place], I saw my colleague already sent you an update regarding insurance requesting additional clinicals for your patient's Revision (please see attached). All documentation provided has been submitted to [facility], however, they are still requesting the followin.) Risk and benefit discussion, 2.) XR report and 3.) Interrogation Report. The notes from 12/23/2023 do not indicate risk/benefits were discussed, is it possible for provider to add addendum indicating risks/benefits of procedure were discussed with the patient? Do you have a copy of the actual [place] /Interrogation Report? If you'd like, we can withdraw this request for now until all requested documentation is available to avoid a denial. Please advise. @[facility] Alyson Aguirre 01/13/2024 3:50 PM Signed 01/13/24 Dr. Cates is going to add the risk and benefit's discussion to his note. I will call this patient to get her X-rays done. I have sent another message over to the rep to get me the interrogation report. Alyson Walker 01/13/2024 3:51 PM Signed Called this patient about the X-rays. She stated that she had forgotten about them and would go and get them done. Alyson Nicole Gregory MD 01/13/2024 9:31 PM Signed Risks and benefits that were extensively discussed with patient in office was added to patients chart. Griffin Alyson 01/14/2024 8:39 AM Signed 01/13/24 Allergies As of Date: 01/01/2024 Noted Allergy Reactio (more content not included)... Normal [facility] Absolute lymphocyte countOrd ered By: Yung Valenzuela on 12-29-2023 Lymphocytes Auto (Unsp spec) [#/Vol] 2.30 10*3/uL 0.83-4.51 [facility] Automated lymphocyte count a s percentage of total leukocytesOrdered By: Yung Valenzuela on 12-29-2023 Lymphocytes/100 WBC Auto (Unsp spec) 36.7 % 19-41 [facility] Basophil percentageOrdered B y: Yung Valenzuela on 12-29-2023 Basophil percentage 3.4 mg/dL 2.5-4.9 [facility] Basophils/100 WBC (Bld) 1.0 % 0-1 [facility] Bilirubin [Mass/Vol] 0.40 mg/dL 0.20-1.00 [facility] Comment on above: For patients on eltr ombopag therapy, use of Dimension [place] TBIL is not recommended. Chloride [Moles/Vol] 105 mmol/L 98-107 [facility] Cholesterol [Mass/Vol] 142 mg/dL <200 [facility] Comment on above: <200 mg/dL Desirable 200-240 mg/dL Borderline >240 mg/dL High Risk Eosinophils/100 WBC (Bld) 2.1 % 0-5 [facility] Glucose [Mass/Vol] 100 mg/dL 74-106 [facility] Comment on above: Fasting Glucose resu lt from 100 to 125 mg/dL suggests IMPAIRED HOMEOSTASIS per A.D.A. criteria. Hemoglobin (Bld) [Mass/Vol] 12.1 g/dL 12.0-15.0 [facility] Monocytes/100 WBC (Bld) 7.2 % 0-10 [facility] Neutrophils (Bld) [#/Vol] 3.3 10*3/uL 2.0-7.7 [facility] Neutrophils/100 WBC (Bld) 52.2 % 47-70 [facility] Potassium [Moles/Vol] 3.9 mmol/L 3.5-5.1 [facility] Protein [Mass/Vol] 7.4 g/dL 6.4-8.2 [facility] Sodium [Moles/Vol] 137 mmol/L 136-145 [facility] Triglyceride [Mass/Vol] 154 mg/dL <199 [facility] Comment on above: The drugs N-Acetylcy steine and Metamizole may falsely depress this assay.Serum Triglycerides Reference Interval Normal <150 mg/dL Borderline high 150 - 199 mg/dL High 200 - 499 mg/dL Very High > or = 500 mg/dL WBC (Bld) [#/Vol] 6.3 10*3/uL 4.4-11.0 [facility] Determination of erythrocyte mean corpuscular volume (MCV)Ordered By: Yung Valenzuela on 12-29-2023 MCV (RBC) [Entitic vol] 87.9 fL 81-99 [facility] Erythrocyte distribution wid th ratioOrdered By: Yung Valenzuela on 12-29-2023 Erythrocyte distribution width (RBC) [Ratio] 13.2 % 11.6-14.6 [facility] Erythrocyte distribution wid th standard deviationOrdered By: Yung Valenzuela on 12-29-2023 Erythrocyte distribution width (RBC) [Entitic vol] 42.6 fL 35.1-43.9 [facility] Hematocrit Auto (Bld) [Volum e fraction]Ordered By: Yung Valenzuela on 12-29-2023 Hematocrit (Bld) [Volume fraction] 37.2 % 37-47 [facility] Immature granulocytes/100 WB C Auto (Bld)Ordered By: Yung Valenzuela on 12-29-2023 Immature granulocytes/100 WBC (Bld) 0.800 % 0.0-0.9 [facility] Comment on above: IG% - Immature Granu locytes (promyelocytes, myelocytes and metamyelocytes) > 1% indicates that a LEFT SHIFT is Present. Laboratory - Chemistry and C hemistry - challengeOrdered By: Yung Valenzuela on 12-29-2023 Albumin/Globulin [Mass ratio] 1.2 {ratio} 0.9-2.4 [facility] ALP [Catalytic activity/Vol] 76 U/L 45-117 [facility] ALT [Catalytic activity/Vol] 38 U/L 13-56 [facility] Cholesterol in HDL [Mass/Vol] 53 mg/dL >40 [facility] Comment on above: The drugs N-Acetylcy steine and Metamizole may falsely depress this assay. Reference Range HDL <40 mg/dL Low HDL Cholesterol HDL >or= 60 mg/dL High HDL Cholesterol Cholesterol in LDL [Mass/Vol] 58 mg/dL 0-130 [facility] CO2 [Moles/Vol] 28.0 mmol/L 21.0-32.0 [facility] Cobalamin (Vitamin B12) [Mass/Vol] 930 pg/mL 211-911 [facility] Globulin (S) [Mass/Vol] 3.4 g/dL 2.2-4.2 [facility] Urea nitrogen/Creatinine [Mass ratio] 22.5 mg/mg 10-20 [facility] Laboratory - Hematology and Cell countsOrdered By: Yung Valenzuela on 12-29-2023 MCH (RBC) [Entitic mass] 28.6 pg 27.0-32.0 [facility] MCHC (RBC) [Mass/Vol] 32.5 g/dL 32-36 [facility] Nucleated RBC/100 WBC (Bld) [Ratio] 0 % 0-5 [facility] Platelet mean volume (Bld) [Entitic vol] 10.3 fL 6.2-12.0 [facility] Platelets (Bld) [#/Vol] 283 10*3/uL 150-450 [facility] No Panel InformationOrdered By: Yung Valenzuela on 12-29-2023 Estimated GFR (MDRD) Amer 108 mL/min >60 [facility] Comment on above: GFR Calc Estimated GFR (MDRD) Non-Af Amer 89 mL/min >60 [facility] Comment on above: Non- GFR Calc Urine Microalbumin/Creatinine Ratio TNP [facility] Comment on above: Test not performed Vitamin D 25-Hydroxy 38.9 ng/mL [facility] Comment on above: Vitamin D 25(OH) Sta tus Range Deficiency <20 ng/mL (50nmol/L) Insufficiency 20 - 30 ng/mL (50 - 75 nmol/L) Sufficiency 30 - 100 ng/mL (75 - 250 nmol/L) Toxicity >100 ng/mL (>250 nmol/L) VLDL Cholesterol 31 mg/dL 5-40 [facility] RBC Auto (Bld) [#/Vol]Ordere d By: Yung Valenzuela on 12-29-2023 RBC (Bld) [#/Vol] 4.23 10*6/uL 4.2-5.4 [facility] Serum or plasma calcium jethro urement (mass/volume)Ordered By: Yung Valenzuela on 12-29-2023 Calcium [Mass/Vol] 9.4 mg/dL 8.5-10.1 [facility] Serum or plasma creatinine m easurement (mass/volume)Ordered By: Yung Valenzuela on 12-29-2023 Creatinine [Mass/Vol] 0.71 mg/dL 0.55-1.02 [facility] Comment on above: The validity of the calculated GFR & GFRAA in patients over 70 years has not been determined. Clinical correlation is essential. Serum or plasma thiamine rima surement (mass/volume)Ordered By: Yung Valenzuela on 12-29-2023 Thiamine [Mass/Vol] 254.4 nmol/L 66.5-200.0 [facility] Comment on above: Performed at: [address] [id number] Director: Purvi Sharma MD, Phone: [phone] Serum or plasma thyroid stim ulating hormone (TSH) measurement (units/volume)Ordered By: Yung Valenzuela on 12-29-2023 TSH Qn 1.42 uIU/mL 0.358-3.74 [facility] Serum or plasma urea nitroge n measurement (mass/volume)Ordered By: Yung Valenzulea on 12-29-2023 Urea nitrogen [Mass/Vol] 16 mg/dL 7-18 [facility] Thin prep Papanicolaou smear with manual screeningOrdered By: Yung Valenzuela on 12-29-2023 Thin prep Papanicolaou smear with manual screening 4.0 g/dL 3.2-5.0 [facility] Thin prep Papanicolaou smear with manual screening 23 U/L 15-37 [facility] Thin prep Papanicolaou smear with manual screening 4 5-15 [facility] Thin prep Papanicolaou smear with manual screening < 5.0 mg/L NO RANGE EST. [facility] Urine creatinine measurement (mass/volume)Ordered By: Yung Valenzuela on 12-29-2023 Creatinine (U) [Mass/Vol] 25.60 mg/dL NO RANGE EST. [facility] Whole blood hemoglobin A1c/t otal hemoglobin ratio (mass fraction)Ordered By: Yung Valenzuela on 12-29-2023 HbA1c (Bld) [Mass fraction] 6.4 % 3.8-5.6 [facility] Comment on above: Normal < 5.7 % Predi abetic 5.7 - 6.4 % Diabetic >or= 6.5 % Please note range changes. Jordin 12-24-2023 CNPN Telephone (AGSPINE3) -- JEANNAJESS I ([id number]) 1965 F CHT Date Time Provider Department 12/24/23 NICOLE CATES AGSPINE3 During your visit today, we recorded the following information about you: Suzanne Myers 12/24/2023 12:35 PM Signed ----- Message from Rebecca Voss sent at 12/24/2023 12:30 PM EST ----- Regarding: Spine/ [Dr. Draryn MD] Recent Ov Notes Subject Line Format:Spine/ [Dr. Darryn MD] Recent Ov Notes Patient: Jess Meeks Date of : 1965 Primary Care Provider: No primary care provider on file. Patient has been identified by name and Date of (Y/N): y Patient: Jess Meeks Date of : 1965 Provider for this encounter: No primary care provider on file. Reason for the call/escalation: Recent Ov Notes Was Patient Referred to [facility]/Seek Emergency Treatment (Y/N): n Did Patient Agree (Y/N): n Was An Attempt Made To Transfer The Patient To The Office (Y/N): n Were You Able To Reach Someone At The Office (Y/N): n If Yes - Patient Was Transferred To (Caregivers Name): n If No - Which [facility] Leadership Knowledge Engineer Did You Speak With Regarding This Patient: n Was an appointment scheduled (Y/N): n Reason patient was requesting visit (RFV/signs and symptoms/diagnosis) : Recent office notes, please fax to [facility] (spoke with Mariana) Person calling if other than patient: yes Return call to if other than patient: yes Best contact number: [phone] anyone that answers will be able to help Thank you, Rebecca Voss December 24, 2023 12:31 PM Lori Ramesh PSS 12/28/2023 12:54 PM Signed Notes faxed to [employer] @ [phone] Lori Ramesh [place] to Dr. Cates, Dr. Rausch, Lisha Rich PA-C, Workers Compensation [facility] P: [id number] / F: [phone] / [email or web address] Allergies As of Date: 12/24/2023 Noted Allergy Reaction ATORVASTATIN 03/10/2016 17 - Myalgia Comments: Muscle aches; resolved after stopped statin NAPROXEN 01/13/2019 4 - Hives NAPROXYN (NAPROXEN) 12/23/2010 4 - Hives PRAVASTATIN 09/01/2017 17 - Myalgia Comments: Did not tolerate RESTASIS (CYCLOSPORINE) 07/25/2019 14 - Other: See Comments Comments: Burning and redness in the eyes SEASONAL ALLERGIES 08/08/2022 14 - Other: See Comments WELLBUTRIN XL (BUPROPION) 08/25/2006 ZOLOFT (SERTRALINE) 02/13/2006 6 - Diarrhea IBUPROFEN 06/05/2020 2 - Rash Date Reviewed: 12/23/2023 Reviewed by: Jessica Torres LPN - Fully Assessed Reason for Visit: Patient Question [1477] Prescriptions as of 12/28/2023 - armodafinil (NUVIGIL) 250 mg tab Take 1 tablet by mouth once daily for 30 days. - methylPREDNISolone (MEDROL, RICARDO,) 4 mg Dose-Pack As Instructed per package - CPAP/BIPAP/OTHER Type .CPAPSettings into a note to see current settings/supplies/DME information. - atomoxetine (STRATTERA) 40 mg capsule - Cetirizine 10 mg cap Take by mouth. - gabapentin (NEURONTIN) 300 mg capsule Take 2-3 caps nightly as instructed. - CPAP AutoPAP 5-15 cmH2O with humidification and mask fitting (possible dreamwear of wisp). Lifetime supplies. Note pt compliant with current device but machine reporting device beyond motor hours. - diclofenac, EC, (VOLTAREN) 75 mg EC tablet Take 1 tablet by mouth twice daily as needed (for pain.). - nabumetone (RELAFEN) 500 mg tablet Take 1 tablet by mouth once daily. - cyclobenzaprine (FLEXERIL) 10 mg tablet Take 1 tablet by mouth three times daily as needed for muscle spasm. - CPAP Needs new DME for insurance. Also needs supplies and new CPAP mask - current nasal pillows falling out of nose (fx mary ann) and dreamwear was rubbing hair out). Lifetime supplies. - lisinopril (ZESTRIL, PRINIVIL) 20 mg tablet Take 20 mg by mouth twice daily. - metFORMIN ER (GLUCOPHAGE XR) 500 mg 24 hr tablet twice daily. - loratadine (CLARITIN) 10 mg tablet Take 10 mg by mouth once daily. - buizxrw-uvzivkydw-olsxtcr D3 500 mg-5 mcg (200 unit) per tablet Take 1 tablet by mouth twice daily with meals. - polyethylene glycol 3350 (MIRALAX, GLYCOLAX) 17 gram/dose powder Take by mouth once daily. - CPAP Patient on PAP therapy. Needs supplies. Lifetime supplies. Please provide download from PAP if possible. - Minocycline HCl 50 mg tablet TAKE 1 PILL DAILY FOR 10 DAYS ONLY DURING FLARES - estradiol (ESTRACE) 0.01 % (0.1 mg/gram) vaginal cream APPLY A PEA SIZE AMOUNT OF CREAM TO FINGER AND LUBRICATE VAGINAL TISSUE 3 TIMES WEEKLY - DULoxetine (CYMBALTA) 60 mg capsule Take 1 capsule by mouth once daily. - rosuvastatin (CRESTOR) 5 mg tablet Take 1 tablet by mouth daily at bedtime. As directed - oxybutynin ER (DITROPAN XL) 10 mg 24 hr tablet TAKE 1 TABLET BY MOUTH 1 TIME PER DAY SE WERE (more content not included)... Normal [facility] CNOVon 12-23-2023 CNOV Office Visit (AGSPIN E3) -- JEANNAEJSS Hope ([id number]) 1965 F T Date Time Provider Department 12/23/23 12:00 PM NICOLE CATES AGSPINE3 During your visit today, we recorded the following information about you: Pulse Respiration 70/minute 20/minute Jessica Torres LPN 12/27/2023 4:06 PM Signed Review of Systems Constitutional: Positive for activity change. Negative for chills, fever and unexpected weight change. Genitourinary: Negative for difficulty urinating. Musculoskeletal: Positive for arthralgias, back pain, joint swelling, myalgias, neck pain and neck stiffness. Negative for gait problem. Neurological: Positive for weakness and numbness. Negative for headaches. Psychiatric/Behavioral: Positive for sleep disturbance. Negative for dysphoric mood and suicidal ideas. The patient is not nervous/anxious. Nicole Cates MD 01/13/2024 9:30 PM Addendum [facility] Today's Date: 12/27/2023 Name: Jess Meeks : 1965 Purpose: Follow-up Patient Evaluation - This is an established patient, returning today for continued evaluation and management of the chief complaint noted below, SCS consult Chief complaint: neck pain, lower back pain Referring Clinician: Self Pertinent Past Medical History: Diabetes, uterine fibroids, GERD, HTN, DJD, KAVON on CPAP periodic limb movement disorder, myalgia, HL, Pertinent Past Surgeries: S/p lumbar spine fusion, s/p SCS implant (2013) __ Plan at last visit: Hold off on R-sided cervical RFA Patient presents for TV for Cervical RFA on the LEFT. Reports no relief since the RFA. She was scheduled for RIGHT sided cervical RFA, however she cancelled due to her increased pain and discomfort from the injection. She continues to have discomfort and aching near her injection sites. We will call in medrol dosepak for her acute pain and monitor her symptoms Medication use(s) and side effects reviewed with patient today with verbalized understanding. Advised to medrol with food and to avoid any NSAIDS while taking. If no improvement, new or worsening symptoms I recommend an updated OV to re-evaluate or she may proceed with RFA on the RIGHT side if she feels is needed. Interval History: Overall pain and functional disability since last visit: Unchanged New Complaints since last visit: No Today, pt reports that she has ongoing relief from L-sided cervical RFA, with manageable pain relief since her last cRFA in July 2022. She deferred R-sided cervical RFA due to sig increase in pain after her L-sided cervical RFA procedure which improved over time, and manageable symptoms on the R-side. She now reports that she normally has close to 100% relief with her SCS. However, she reports that since September 2023, she has been unable to charge her system past 2 bars on her remote, with 3-4 days of total battery life with each charge. She reports that her external utilities manager will beep and tell her that her charging is done after 10min as opposed to 1-2hours, however after removing her utilities manager she has very limited duration of battery life. She reports that when her SCS is working it provides close to 100% relief of her lower back and leg symptoms. Patient normally that she has close to 100% relief from her SCS system with regards to her lower back pain and bilateral L>R lateral thigh pain to the level of the knee. With regards to her neck pain, patient reports that she has had significant benefit from her cervical RFA however she reports that it is unclear what percentage is due to her NSAID therapy as she has continued to take Nabumetone 400mg every day vs Diclofenac 75mg po BID as these have relieved almost all of her neck pain in the past. Recall: Patient was last seen on 06/17/[address] C-spine from 05/2020 showed multilevel degenerative changes with foraminal and central canal stenosis - most prominent over C6-7 level. She has had CESIs and left cervical facet RFAs in the past for treatment with >75% relief for ~8 months from prior RFAs. She also has a SCS in place for low back pain d/t post-laminectomy syndrome - implanted in 2013 Dr. Hernandez. She was further noted to have owngoing lower back pain with muscle spasms and occasional radicular leg pain. At that visit, plan was made to repeat a cervical RFA at C3/4, C4/5 and C5/6 on the left which she underwent on 09/17/21. She was further planned for SCS reprogramming to assess for benefit of new programming vs need for new IPG. Patient reports that she has close to 100% relief from her SCS system with regards to her lower back pain and bilateral L>R lateral thigh pain to the level of the knee. She had an acute flare in May in 2020 (more content not included)... Normal [facility] Laboratory - Chemistry and C hemistry - challengeOrdered By: Yung Valenzuela on 08-18-2023 Cobalamin (Vitamin B12) [Mass/Vol] 818 pg/mL 211-911 [facility] Free T4 [Mass/Vol] 0.83 ng/dL 0.76-1.46 [facility] No Panel InformationOrdered By: Yung Valenzuela on 08-18-2023 Thyroid Stimulating Hormone (TSH) 1.38 uIU/mL 0.358-3.74 [facility] Vitamin D 25-Hydroxy 64.1 ng/mL [facility] Comment on above: Vitamin D 25(OH) Sta tus Range Deficiency <20 ng/mL (50nmol/L) Insufficiency 20 - 30 ng/mL (50 - 75 nmol/L) Sufficiency 30 - 100 ng/mL (75 - 250 nmol/L) Toxicity >100 ng/mL (>250 nmol/L) Whole Blood Vitamin B1 Level 154.4 nmol/L 66.5-200.0 [facility] Comment on above: Performed at: [address] [id number] Director: Purvi Sharma MD, Phone: [phone] Absolute lymphocyte countOrd ered By: Dr. Valenzuela on 04-07-2023 Lymphocytes Auto (Unsp spec) [#/Vol] 2.26 10*3/uL 0.83-4.51 [facility] Basophil percentageOrdered B y: Dr. Valenzuela on 04-07-2023 Basophils/100 WBC (Bld) 1.1 % 0-1 [facility] Bilirubin [Mass/Vol] 0.40 mg/dL 0.20-1.00 [facility] Comment on above: For patients on eltr ombopag therapy, use of Dimension [place] TBIL is not recommended. Chloride [Moles/Vol] 105 mmol/L 98-107 [facility] Cholesterol [Mass/Vol] 157 mg/dL <200 [facility] Comment on above: <200 mg/dL Desirable 200-240 mg/dL Borderline >240 mg/dL High Risk Eosinophils/100 WBC (Bld) 2.5 % 0-5 [facility] Glucose [Mass/Vol] 146 mg/dL 74-106 [facility] Comment on above: Fasting Glucose resu lt greater than or equal to 126 mg/dL suggests DIABETES MELLITUS per A.D.A. criteria. Neutrophils (Bld) [#/Vol] 3.9 10*3/uL 2.0-7.7 [facility] Neutrophils/100 WBC (Bld) 55.6 % 47-70 [facility] Potassium [Moles/Vol] 4.3 mmol/L 3.5-5.1 [facility] Protein [Mass/Vol] 7.7 g/dL 6.4-8.2 [facility] Sodium [Moles/Vol] 138 mmol/L 136-145 [facility] Triglyceride [Mass/Vol] 224 mg/dL <199 [facility] Comment on above: The drugs N-Acetylcy steine and Metamizole may falsely depress this assay.Serum Triglycerides Reference Interval Normal <150 mg/dL Borderline high 150 - 199 mg/dL High 200 - 499 mg/dL Very High > or = 500 mg/dL WBC (Bld) [#/Vol] 7.1 10*3/uL 4.4-11.0 [facility] Blood erythrocytes count (nu mber/volume)Ordered By: Dr. Valenzuela on 04-07-2023 RBC (Bld) [#/Vol] 4.44 10*6/uL 4.2-5.4 [facility] Blood hemoglobin measurement (mass/volume)Ordered By: Dr. Valenzuela on 04-07-2023 Hemoglobin (Bld) [Mass/Vol] 12.0 g/dL 12.0-15.0 [facility] Blood lymphocytes/100 leukoc ytesOrdered By: Dr. Valenzuela on 04-07-2023 Lymphocytes/100 WBC (Bld) 31.9 % 19-41 [facility] Blood monocytes/100 leukocyt esOrdered By: Dr. Valenzuela on 04-07-2023 Monocytes/100 WBC (Bld) 8.3 % 0-10 [facility] Blood platelet mean volumeOr dered By: Dr. Valenzuela on 04-07-2023 Platelet mean volume (Bld) [Entitic vol] 10.4 fL 6.2-12.0 [facility] Determination of erythrocyte mean corpuscular volume (MCV)Ordered By: Dr. Valenzuela on 04-07-2023 MCV (RBC) [Entitic vol] 85.6 fL 81-99 [facility] Hematocrit Auto (Bld) [Volum e fraction]Ordered By: Dr. Valenzuela on 04-07-2023 Hematocrit (Bld) [Volume fraction] 38.0 % 37-47 [facility] Laboratory - Chemistry and C hemistry - challengeOrdered By: Dr. Valenzuela on 04-07-2023 ALP [Catalytic activity/Vol] 106 U/L 45-117 [facility] ALT [Catalytic activity/Vol] 70 U/L 13-56 [facility] CO2 [Moles/Vol] 23.0 mmol/L 21.0-32.0 [facility] Cobalamin (Vitamin B12) [Mass/Vol] 1313 pg/mL 211-911 [facility] Globulin (S) [Mass/Vol] 3.6 g/dL 2.2-4.2 [facility] Urea nitrogen/Creatinine [Mass ratio] 15.1 mg/mg 10-20 [facility] Laboratory - Hematology and Cell countsOrdered By: Dr. Valenzuela on 04-07-2023 Erythrocyte distribution width (RBC) [Entitic vol] 44.8 fL 35.1-43.9 [facility] Erythrocyte distribution width (RBC) [Ratio] 14.3 % 11.6-14.6 [facility] Immature granulocytes/100 WBC (Bld) 0.600 % 0.0-0.9 [facility] Comment on above: IG% - Immature Granu locytes (promyelocytes, myelocytes and metamyelocytes) > 1% indicates that a LEFT SHIFT is Present. MCH (RBC) [Entitic mass] 27.0 pg 27.0-32.0 [facility] Nucleated RBC/100 WBC (Bld) [Ratio] 0 % 0-5 [facility] MCHC Auto (RBC) [Mass/Vol]Or dered By: Dr. Valenzuela on 04-07-2023 MCHC (RBC) [Mass/Vol] 31.6 g/dL 32-36 [facility] No Panel InformationOrdered By: Dr. Valenzuela on 04-07-2023 Estimated GFR (MDRD) Amer 95 mL/min >60 [facility] Comment on above: GFR Calc Estimated GFR (MDRD) Non-Af Amer 78 mL/min >60 [facility] Comment on above: Non- GFR Calc Thyroid Stimulating Hormone (TSH) 1.86 uIU/mL 0.358-3.74 [facility] Vitamin B6 Level 33.6 ug/L 3.4-65.2 [facility] Comment on above: Deficiency: <3.4 Mar ginal: 3.4 - 5.1 Adequate: >5.1 Vitamin D 25-Hydroxy 63.3 ng/mL [facility] Comment on above: Vitamin D 25(OH) Sta tus Range Deficiency <20 ng/mL (50nmol/L) Insufficiency 20 - 30 ng/mL (50 - 75 nmol/L) Sufficiency 30 - 100 ng/mL (75 - 250 nmol/L) Toxicity >100 ng/mL (>250 nmol/L) Whole Blood Vitamin B1 Level 145.0 nmol/L 66.5-200.0 [facility] Comment on above: Performed at: - [address] [id number] Director: Purvi Sharma MD, Phone: [phone] Platelets bldOrdered By: Dr. Valenzuela on 04-07-2023 Platelets (Bld) [#/Vol] 323 10*3/uL 150-450 [facility] Serum or plasma albumin jethro urement (mass/volume)Ordered By: Dr. Valenzuela on 04-07-2023 Albumin [Mass/Vol] 4.1 g/dL 3.2-5.0 [facility] Serum or plasma albumin/glob ulin mass ratioOrdered By: Dr. Valenzuela on 04-07-2023 Albumin/Globulin [Mass ratio] 1.1 {ratio} 0.9-2.4 [facility] Serum or plasma calcium jethro urement (mass/volume)Ordered By: Dr. Valenzuela on 04-07-2023 Calcium [Mass/Vol] 9.3 mg/dL 8.5-10.1 [facility] Serum or plasma cholesterol in HDL measurement (mass/volume)Ordered By: Dr. Valenzuela on 04-07-2023 Cholesterol in HDL [Mass/Vol] 43 mg/dL >40 [facility] Comment on above: The drugs N-Acetylcy steine and Metamizole may falsely depress this assay. Reference Range HDL <40 mg/dL Low HDL Cholesterol HDL >or= 60 mg/dL High HDL Cholesterol Serum or plasma cholesterol in VLDL measurement (mass/volume)Ordered By: Dr. Valenzuela on 04-07-2023 Cholesterol in VLDL [Mass/Vol] 45 mg/dL 5-40 [facility] Serum or plasma creatinine m easurement (mass/volume)Ordered By: Dr. Valenzuela on 04-07-2023 Creatinine [Mass/Vol] 0.80 mg/dL 0.55-1.02 [facility] Comment on above: The validity of the calculated GFR & GFRAA in patients over 70 years has not been determined. Clinical correlation is essential. Serum or plasma low density lipoprotein (LDL) cholesterol measurement (mass/volume)Ordered By: Dr. Valenzuela on 04-07-2023 Cholesterol in LDL [Mass/Vol] 69 mg/dL 0-130 [facility] Serum or plasma urea nitroge n measurement (mass/volume)Ordered By: Dr. Valenzuela on 04-07-2023 Urea nitrogen [Mass/Vol] 12 mg/dL 7-18 [facility] Thin prep Papanicolaou smear with manual screeningOrdered By: Dr. Valenzuela on 04-07-2023 Thin prep Papanicolaou smear with manual screening 79 U/L 15-37 [facility] Thin prep Papanicolaou smear with manual screening 10 5-15 [facility] Whole blood hemoglobin A1c/t otal hemoglobin ratio (mass fraction)Ordered By: Dr. Valenzuela on 04-07-2023 HbA1c (Bld) [Mass fraction] 7.1 % 3.8-5.6 [facility] Comment on above: Normal < 5.7 % Predi abetic 5.7 - 6.4 % Diabetic >or= 6.5 % Please note range changes. Absolute lymphocyte countOrd ered By: Dr. Valenzuela on 12-08-2022 Lymphocytes Auto (Unsp spec) [#/Vol] 2.16 10*3/uL 0.83-4.51 [facility] Basophil percentageOrdered B y: Dr. Valenzuela on 12-08-2022 Basophils/100 WBC (Bld) 0.8 % 0-1 [facility] Bilirubin [Mass/Vol] 0.30 mg/dL 0.20-1.00 [facility] Comment on above: For patients on eltr ombopag therapy, use of Dimension [place] TBIL is not recommended. Chloride [Moles/Vol] 106 mmol/L 98-107 [facility] Cholesterol [Mass/Vol] 153 mg/dL <200 [facility] Comment on above: <200 mg/dL Desirable 200-240 mg/dL Borderline >240 mg/dL High Risk Eosinophils/100 WBC (Bld) 2.7 % 0-5 [facility] Glucose [Mass/Vol] 150 mg/dL 74-106 [facility] Comment on above: Fasting Glucose resu lt greater than or equal to 126 mg/dL suggests DIABETES MELLITUS per A.D.A. criteria. Neutrophils (Bld) [#/Vol] 4.1 10*3/uL 2.0-7.7 [facility] Neutrophils/100 WBC (Bld) 57.0 % 47-70 [facility] Potassium [Moles/Vol] 4.0 mmol/L 3.5-5.1 [facility] Protein [Mass/Vol] 7.7 g/dL 6.4-8.2 [facility] Sodium [Moles/Vol] 139 mmol/L 136-145 [facility] Triglyceride [Mass/Vol] 198 mg/dL <199 [facility] Comment on above: The drugs N-Acetylcy steine and Metamizole may falsely depress this assay.Serum Triglycerides Reference Interval Normal <150 mg/dL Borderline high 150 - 199 mg/dL High 200 - 499 mg/dL Very High > or = 500 mg/dL WBC (Bld) [#/Vol] 7.1 10*3/uL 4.4-11.0 [facility] Blood erythrocytes count (nu mber/volume)Ordered By: Dr. Valenzuela on 12-08-2022 RBC (Bld) [#/Vol] 4.56 10*6/uL 4.2-5.4 [facility] Blood hemoglobin measurement (mass/volume)Ordered By: Dr. Valenzuela on 12-08-2022 Hemoglobin (Bld) [Mass/Vol] 12.7 g/dL 12.0-15.0 [facility] Blood lymphocytes/100 leukoc ytesOrdered By: Dr. Valenzuela on 12-08-2022 Lymphocytes/100 WBC (Bld) 30.3 % 19-41 [facility] Blood monocytes/100 leukocyt esOrdered By: Dr. Valenzuela on 12-08-2022 Monocytes/100 WBC (Bld) 8.8 % 0-10 [facility] Blood platelet mean volumeOr dered By: Dr. Valenzuela on 12-08-2022 Platelet mean volume (Bld) [Entitic vol] 10.5 fL 6.2-12.0 [facility] Determination of erythrocyte mean corpuscular volume (MCV)Ordered By: Dr. Valenzuela on 12-08-2022 MCV (RBC) [Entitic vol] 88.2 fL 81-99 [facility] Hematocrit Auto (Bld) [Volum e fraction]Ordered By: Dr. Valenzuela on 12-08-2022 Hematocrit (Bld) [Volume fraction] 40.2 % 37-47 [facility] Laboratory - Chemistry and C hemistry - challengeOrdered By: Dr. Valenzuela on 12-08-2022 ALP [Catalytic activity/Vol] 87 U/L 45-117 [facility] ALT [Catalytic activity/Vol] 65 U/L 13-56 [facility] CO2 [Moles/Vol] 26.0 mmol/L 21.0-32.0 [facility] Cobalamin (Vitamin B12) [Mass/Vol] 838 pg/mL 211-911 [facility] Free T4 [Mass/Vol] 0.85 ng/dL 0.76-1.46 [facility] Globulin (S) [Mass/Vol] 3.7 g/dL 2.2-4.2 [facility] Urea nitrogen/Creatinine [Mass ratio] 26.4 mg/mg 10-20 [facility] Laboratory - Hematology and Cell countsOrdered By: Dr. Valenzuela on 12-08-2022 Erythrocyte distribution width (RBC) [Entitic vol] 43.2 fL 35.1-43.9 [facility] Erythrocyte distribution width (RBC) [Ratio] 13.3 % 11.6-14.6 [facility] Immature granulocytes/100 WBC (Bld) 0.400 % 0.0-0.9 [facility] Comment on above: IG% - Immature Granu locytes (promyelocytes, myelocytes and metamyelocytes) > 1% indicates that a LEFT SHIFT is Present. MCH (RBC) [Entitic mass] 27.9 pg 27.0-32.0 [facility] Nucleated RBC/100 WBC (Bld) [Ratio] 0 % 0-5 [facility] MCHC Auto (RBC) [Mass/Vol]Or dered By: Dr. Valenzuela on 12-08-2022 MCHC (RBC) [Mass/Vol] 31.6 g/dL 32-36 [facility] No Panel InformationOrdered By: Dr. Valenzuela on 12-08-2022 Estimated GFR (MDRD) Amer 86 mL/min >60 [facility] Comment on above: GFR Calc Estimated GFR (MDRD) Non-Af Amer 71 mL/min >60 [facility] Comment on above: Non- GFR Calc Thyroid Stimulating Hormone (TSH) 2.27 uIU/mL 0.358-3.74 [facility] Urine Microalbumin/Creatinine Ratio 41.6 mg/g CRE <30 [facility] Vitamin D 25-Hydroxy 45.8 ng/mL [facility] Comment on above: Vitamin D 25(OH) Sta tus Range Deficiency <20 ng/mL (50nmol/L) Insufficiency 20 - 30 ng/mL (50 - 75 nmol/L) Sufficiency 30 - 100 ng/mL (75 - 250 nmol/L) Toxicity >100 ng/mL (>250 nmol/L) Platelets bldOrdered By: Dr. Valenzuela on 12-08-2022 Platelets (Bld) [#/Vol] 296 10*3/uL 150-450 [facility] Serum or plasma albumin jethro urement (mass/volume)Ordered By: Dr. Valenzuela on 12-08-2022 Albumin [Mass/Vol] 4.0 g/dL 3.2-5.0 [facility] Serum or plasma albumin/glob ulin mass ratioOrdered By: Dr. Valenzuela on 12-08-2022 Albumin/Globulin [Mass ratio] 1.1 {ratio} 0.9-2.4 [facility] Serum or plasma calcium jethro urement (mass/volume)Ordered By: Dr. Valenzuela on 12-08-2022 Calcium [Mass/Vol] 9.5 mg/dL 8.5-10.1 [facility] Serum or plasma cholesterol in HDL measurement (mass/volume)Ordered By: Dr. Valenzuela on 12-08-2022 Cholesterol in HDL [Mass/Vol] 41 mg/dL >40 [facility] Comment on above: The drugs N-Acetylcy steine and Metamizole may falsely depress this assay. Reference Range HDL <40 mg/dL Low HDL Cholesterol HDL >or= 60 mg/dL High HDL Cholesterol Serum or plasma cholesterol in VLDL measurement (mass/volume)Ordered By: Dr. Valenzuela on 12-08-2022 Cholesterol in VLDL [Mass/Vol] 40 mg/dL 5-40 [facility] Serum or plasma creatinine m easurement (mass/volume)Ordered By: Dr. Valenzuela on 12-08-2022 Creatinine [Mass/Vol] 0.87 mg/dL 0.55-1.02 [facility] Comment on above: The validity of the calculated GFR & GFRAA in patients over 70 years has not been determined. Clinical correlation is essential. Serum or plasma low density lipoprotein (LDL) cholesterol measurement (mass/volume)Ordered By: Dr. Valenzuela on 12-08-2022 Cholesterol in LDL [Mass/Vol] 72 mg/dL 0-130 [facility] Serum or plasma urea nitroge n measurement (mass/volume)Ordered By: Dr. Valenzuela on 12-08-2022 Urea nitrogen [Mass/Vol] 23 mg/dL 7-18 [facility] Thin prep Papanicolaou smear with manual screeningOrdered By: Dr. Valenzuela on 12-08-2022 Thin prep Papanicolaou smear with manual screening 67 U/L 15-37 [facility] Thin prep Papanicolaou smear with manual screening 7 5-15 [facility] Thin prep Papanicolaou smear with manual screening 46.6 mg/L NO RANGE EST. [facility] Urine creatinine measurement (mass/volume)Ordered By: Dr. Valenzuela on 12-08-2022 Creatinine (U) [Mass/Vol] 112.00 mg/dL NO RANGE EST. [facility] Whole blood hemoglobin A1c/t otal hemoglobin ratio (mass fraction)Ordered By: Dr. Valenzuela on 12-08-2022 HbA1c (Bld) [Mass fraction] 6.8 % 3.8-5.6 [facility] Comment on above: Normal < 5.7 % Predi abetic 5.7 - 6.4 % Diabetic >or= 6.5 % Please note range changes. Laboratory - Microbiology an d Antimicrobial susceptibilityOrdered By: Dr. Valenzuela on 08-14-2022 SARS-CoV-2 (COVID-19) RNA DALIA+probe Ql (Unsp spec) Not detected Not Detect [facility] Comment on above: Normal Reference Ran ge: Not DetectedMethod:(RT-PCR) real-time reverse transcriptase PCRLuminex MARYBETH Instrument*The Food and Drug Administration (FDA) has issued an Emergency Use Authorization (EAU) for the [place] SARS-CoV-2 Assay for the rapid detection of the virus that causes COVID-19. This test has been validated, but the FDAs independent review of this validation is pending.*Negative results do not preclude infection and should not be used as the sole basis for treatment or patient management. Optimum specimen types and timing for peak viral levels during infections caused by SARS-CoV-2 have not been determined. Collection of multiple specimens from the same patient may be necessary to detect the virus. The possibility of a false negative result should be considered if the patient has clinical presentation or has had recent exposure. TOXICOLOGY SCRN W/CONF,URINE on 08-09-2022 Amphetamines Confirm (U) [Mass/Vol] Negative Negative [facility] Barbiturates Urine Negative Negative [facility] Benzodiazepines Urine Negative Negative [facility] Cannabinoids, Urine Negative Negative [facility] Cocaine Ql (U) Negative Negative [facility] Ethanol (U) [Mass/Vol] <11 mg/dL [facility] Opiates Screen Ql (U) Negative Negative [facility] oxyCODONE cutoff Screen (U) [Mass/Vol] Negative Negative [facility] Phencyclidine Ql (U) Negative Negative [facility] CT CERVICAL SPINE WO IVCONon 06-22-2020 CT CERVICAL SPINE WO IVCON Final Report DATE OF EXAM: Jun 22 2020 3:28PM [facility] 0505 - CT CERVICAL SPINE WO IVCON / PROCEDURE REASON: multiple diagnoses Physician Interpretation EXAMINATION: CT CERVICAL SPINE WO IVCON CLINICAL HISTORY: Left side neck pain TECHNIQUE: CT of the cervical spine without IV contrast. Spiral, high resolution axial images were obtained from the skull base to the cervicothoracic junction with sagittal and coronal planar reconstructions. MQ: [id number] CT Dose-Length Product (DLP): [address] Dose Reduction Employed: No dose reduction techniques were required COMPARISON: 2018 cervical spine series. 02/22/2014 MRI RESULT: Counting reference: Craniocervical junction. Anatomic Variants: None. Cabinet Installer (topogram) images: No additional findings. Alignment: Alignment is anatomic. Craniocervical junction: Craniocervical junction is normal. Osseous structures/fracture: No evidence of a lytic or blastic process in the visualized spine. No evidence of acute or chronic fracture. Cervical soft tissues: The paraspinal soft tissues are within normal limits. Mild right carotid calcifications. Degenerative changes: C2-3 level: Moderate degree of left facet joint arthropathy. Minimal left foraminal narrowing. C3-4 level: Fusion of the left facet joint with mild left foraminal narrowing. Partial fusion of the right facet joint. No central canal or right foraminal narrowing. C4-5 level: Disc/osteophyte complex as well as uncovertebral spurs contributes to mild central canal and bilateral foraminal narrowing, greater left side. Moderate degree of left facet arthropathy contributing to left foraminal stenosis, seen on axial image 89. C5-6 level: Disc space narrowing and endplate degenerative changes. Uncovertebral spurs contributing to mild/moderate degree of right foraminal narrowing, as seen on axial image 102. C6-7 level: Disc space narrowing and endplate degenerative changes. Moderate size posterior disc osteophyte complex contributes to mild central canal and mild right foraminal stenosis, as seen on axial image 117. C7-T1 level: No central or foraminal stenosis. IMPRESSION: 1.Multilevel degenerative central and foraminal narrowing. In particular, left foraminal stenosis is most prominent at the C3-4 and C4-5 levels due to facet arthropathy. 2. Right foraminal stenosis is most prominent at the C5-6 and lesser degree at the C6-7 level. 3. Central canal stenosis is most prominent at the C6-7 level. Senior Planning Analyst: PSCB Transcribe Date/Time: Jun 26 2020 1:55P Dictated by : BILL SMALLS MD This examination was interpreted and the report reviewed and electronically signed by: BILL SMALLS MD on Jun 26 2020 2:05PM EST Normal [facility] PROGRESSon 01-13-2019 Protein mass conc HNO ID: [id number] Author: Gareth Miller Service: ? Author Type: Physician Type: Progress Notes Filed: 01/13/2019 1:18 PM Note Text: Telemedicine Visit - Distance Health Virtual Visit Note Patient seen on [facility] platform. Location of patient: [place] PCP: Madeline Sotelo History of Present Illness: Jess Webster is a 53 year old year old female with a history of onset 4 days ago. Eyes are red with irritation. She denies trauma or getting anything in her eyes. She does have dry eyes but they feel more irritated and it is a different feel than her baseline. She did start oxybutinin last week. No new makeup or other exposures. 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 Positive for Redness and Negative for Itching, Change in vision, Fevers, Chills/Sweats, URI Symptoms and Contact lens wear Past Medical History: KAVON, dry eyes, OAB, Rosacea, eczema, RLS Meds: oxybutynin, atorvastatin, gabapentin, Cymbalta, lisinopril/HCTZ, minocycline Allergies: Naproxen VIDEO EXAMINATION (Examination performed via Video enabled technology) General Appearance: 53 year old year old female in NAD Eyes: Normal Pupil Size EOMI Right: mild Conjunctival injection Left: mild Conjunctival injection No swelling or redness of either eyelid A/P: (H10.33) Acute conjunctivitis of both eyes, unspecified acute conjunctivitis type (primary encounter diagnosis) - DDX: conjunctivitis, dry eyes (? Flare of symptoms with starting oxybutynin) , allergy - she is not having discharge however there are other close contacts with red eyes that have just started which makes it suspicious for a viral or bacterial process. Will start treatment with trimethoprim-polymyxin eye drops (POLYTRIM) ophthalmic solution, Reviewed potential side effects. 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 Avoid patient contact for at least 24 hours after treatment or until improving. - if symptoms worsening or not improving in the next 3 days advised in person follow up Gareth Miller, DO If you let us know who your primary care provider is, we will send them a notification of today?s visit through our electronic medical records system. Since not all providers have access to our notifications, we strongly encourage you to share the following record of today?s visit with your primary care provider at your next visit. This will help in providing you the best care. Normal [facility] XR HIP 3V PELV+ AP/LAT RTon 07-20-2017 XR HIP 3V PELV+ AP/LAT RT * * *Final Report* * *DATE OF EXAM: Jul 20 2017 11:28AM MDX 5352 - XR HIP 3V PELV+ AP/LAT RT / REASON: [id number]-Pain in right hip * * * * Physician Interpretation * * * * EXAMINATION: XR HIP 3V PELV+ AP/LAT RTCLINICAL HISTORY: right hip pain 3 weeks Pain in right hipTechnique: XR HIP 3V PELV+ AP/LAT RT -- RIGHT hip and pelvis with 1 pelvis, 2 hip views on 1 pelvis, 2 hip imagesComparison: NoneRESULT:No acute fracture or dislocation. The joint spaces are maintained. No significant degenerative spurring is appreciated. The sacroiliac joints and pubic symphysis are intact. Orthopedic fusion hardware is present at the lumbosacral junction. An additional bilingual medical assistant overlies the right lower quadrant.IMPRESSION:No acute osseous abnormality is identified.Transcriptionis t: PSCB Transcribe Date/Time: Jul 20 2017 12:37PDictated by : JAKE TERESA MDThis examination was interpreted and the report reviewed and electronically signed by: JAKE TERESA MD on Jul 20 2017 12:40PM [id number] [facility] Vital Signs Date Time Vital Sign Value Performing Clinician Melidai tl 04-04-2025 08:23-0400 Body mass index (BMI) [Ratio] 30.4 kg/m2 Dr. Yung Valenzuela MD Work Phone: [facility] 04-04-2025 08:23-0400 Body temperature 97.2 [degF] Dr. Yung Valenzuela MD Work Phone: [facility] 04-04-2025 08:23-0400 Body weight [address] Yung Valenzuela MD Work Phone: [facility] 04-04-2025 08:23-0400 Diastolic blood pressure 72 mm[Hg] Dr. Yung Valenzuela MD Work Phone: [facility] 04-04-2025 08:23-0400 Heart rate 83 /min Dr. Yung Valenzuela MD Work Phone: [facility] 04-04-2025 08:23-0400 Respiratory rate 18 /min Dr. Yung Valenzuela MD Work Phone: [facility] 04-04-2025 08:23-0400 SaO2% (BldA) [Mass fraction] 97 % Dr. Yung Valenzuela MD Work Phone: [facility] 04-04-2025 08:23-0400 Systolic blood pressure 102 mm[Hg] Dr. Yung Valenzuela MD Work Phone: 0(180)556-634522 [place] [address] 03-15-2025 14:23-0400 Body weight 84.[address] Yung Valenzuela MD Work Phone: 5(063)497-926922 [place] [address] 03-15-2025 14:23-0400 Diastolic blood pressure 79 mm[Hg] Dr. Yung Valenzuela MD Work Phone: [facility] 03-15-2025 14:23-0400 Heart rate 87 /min Dr. Yung Valenzuela MD Work Phone: 6(916)561-312522 [place] [address] 03-15-2025 14:23-0400 Respiratory rate 16 /min Dr. Yung Valenzuela MD Work Phone: [facility] 03-15-2025 14:23-0400 SaO2% (BldA) [Mass fraction] 94 % Dr. Yung Valenzuela MD Work Phone: [facility] 03-15-2025 14:23-0400 Systolic blood pressure 124 mm[Hg] Dr. Yung Valenzuela MD Work Phone: [facility] 01-03-2025 08:44-0400 Body mass index (BMI) [Ratio] 31.2 kg/m2 Dr. Yung Valenzuela MD Work Phone: 3(790)647-248922 [place] [address] 01-03-2025 08:44-0400 Body temperature 97.4 [degF] Dr. Yung Valenzuela MD Work Phone: [facility] 01-03-2025 08:44-0400 Body weight 85.[address] Yung Valenzuela MD Work Phone: [facility] 01-03-2025 08:44-0400 Diastolic blood pressure 73 mm[Hg] Dr. Yung Valenzuela MD Work Phone: 9(030)382-678722 [place] [address] 01-03-2025 08:44-0400 Heart rate 101 /min Dr. Yung Valenzuela MD Work Phone: 3(456)579-528822 [place] [address] 01-03-2025 08:44-0400 Respiratory rate 18 /min Dr. Yung Valenzuela MD Work Phone: 0(376)266-696822 [place] [address] 01-03-2025 08:44-0400 SaO2% (BldA) [Mass fraction] 95 % Dr. Yung Valenzuela MD Work Phone: 5(109)095-960122 [place] [address] 01-03-2025 08:44-0400 Systolic blood pressure 115 mm[Hg] Dr. Yung Valenzuela MD Work Phone: 8(218)506-093222 [place] [address] 11-26-2024 10:13-0500 Heart rate 82 /min Dr. Yung Valenzuela MD Work Phone: 3(462)795-252822 [place] [address] 11-26-2024 09:37-0500 Body temperature 96.9 [degF] Dr. Yung Valenzuela MD Work Phone: 7(834)508-766222 [place] [address] 11-26-2024 09:37-0500 Diastolic blood pressure 75 mm[Hg] Dr. Yung Valenzuela MD Work Phone: 9(344)275-239822 [place] [address] 11-26-2024 09:37-0500 Respiratory rate 14 /min Dr. Yung Valenzuela MD Work Phone: [facility] 11-26-2024 09:37-0500 SaO2% (BldA) [Mass fraction] 95 % Dr. Yung Valenzuela MD Work Phone: 1(935)705-050422 [place] [address] 11-26-2024 09:37-0500 Systolic blood pressure 116 mm[Hg] Dr. Yung Valenzuela MD Work Phone: [facility] 11-24-2024 16:20-0500 Body height 165.[address] Yung Valenzuela MD Work Phone: [facility] 11-24-2024 16:20-0500 Body mass index (BMI) [Ratio] 31.9 kg/m2 Dr. Yung Valenzuela MD Work Phone: [facility] 11-24-2024 16:20-0500 Body weight 87.[address] Yung Valenzuela MD Work Phone: [facility] 07-20-2024 13:17-0400 Heart rate 99 /min Nicole Cates MD, PhD Work Phone: [facility] 07-20-2024 13:17-0400 Respiratory rate 16 /min Nicole Cates MD, PhD Work Phone: [facility] 07-20-2024 13:17-0400 SaO2% (BldA) [Mass fraction] 97 % Nicole Cates MD, PhD Work Phone: [facility] 07-01-2024 09:29-0400 Body height 165.1 [address] 1 [facility] 07-01-2024 09:29-0400 Body mass index (BMI) [Ratio] 32.45 kg/m2 Pst 1 [facility] 07-01-2024 09:29-0400 Body temperature 98.2 [degF] Pst 1 [facility] 07-01-2024 09:29-0400 Body weight 88.45 kg Pst 1 [facility] 07-01-2024 09:29-0400 Diastolic blood pressure 76 mm[Hg] Pst 1 [facility] 07-01-2024 09:29-0400 Heart rate 71 /min Pst 1 [facility] 07-01-2024 09:29-0400 Respiratory rate 16 /min Pst 1 [facility] 07-01-2024 09:29-0400 SaO2% (BldA) [Mass fraction] 99 % Pst 1 [facility] 07-01-2024 09:29-0400 Systolic blood pressure 112 mm[Hg] Pst 1 [facility] 04-29-2024 11:44-0400 Body height 165.1 cm Pst 1 [facility] 04-29-2024 11:44-0400 Body mass index (BMI) [Ratio] 31.45 kg/m2 Pst 1 [facility] 04-29-2024 11:44-0400 Body temperature 98.1 [degF] Pst 1 [facility] 04-29-2024 11:44-0400 Body weight 85.73 kg Pst 1 [facility] 04-29-2024 11:44-0400 Diastolic blood pressure 79 mm[Hg] Pst 1 [facility] 04-29-2024 11:44-0400 Heart rate 62 /min Pst 1 [facility] 04-29-2024 11:44-0400 Respiratory rate 16 /min Pst 1 [facility] 04-29-2024 11:44-0400 SaO2% (BldA) [Mass fraction] 97 % Pst 1 [facility] 04-29-2024 11:44-0400 Systolic blood pressure 116 mm[Hg] Pst 1 [facility] 03-16-2024 13:46-0400 Heart rate 78 /min Nicole Cates MD Work Phone: [facility] 03-16-2024 13:46-0400 Respiratory rate 16 /min Nicole Cates MD Work Phone: [facility] 03-16-2024 13:46-0400 SaO2% (BldA) [Mass fraction] 96 % Nicole Cates MD Work Phone: [facility] 12-29-2023 05:45-0500 Body height 165.[address] Yung Valenzuela Work Phone: [facility] 12-29-2023 05:45-0500 Body mass index (BMI) [Ratio] 30.4 kg/m2 Dr. Yung Valenzuela Work Phone: [facility] 12-29-2023 05:45-0500 Body temperature 98 [degF] Dr. Yung Valenzuela Work Phone: [facility] 12-29-2023 05:45-0500 Body weight [address] Yung Valenzuela Work Phone: [facility] 12-29-2023 05:45-0500 Diastolic blood pressure 73 mm[Hg] Dr. Yung Valenzuela Work Phone: [facility] 12-29-2023 05:45-0500 Heart rate 72 /min Dr. Yung Valenzuela Work Phone: [facility] 12-29-2023 05:45-0500 Respiratory rate 20 /min Dr. Yung Valenzuela Work Phone: [facility] 12-29-2023 05:45-0500 SaO2% (BldA) [Mass fraction] 97 % Dr. Yung Valenzuela Work Phone: [facility] 12-29-2023 05:45-0500 Systolic blood pressure 116 mm[Hg] Dr. Yung Valenzuela Work Phone: [facility] 12-23-2023 12:04-0500 Heart rate 70 /min Nicole Cates MD Work Phone: [facility] 12-23-2023 12:04-0500 Respiratory rate 20 /min Nicole Cates MD Work Phone: [facility] 12-23-2023 12:04-0500 SaO2% (BldA) [Mass fraction] 99 % Nicole Cates MD Work Phone: [facility] 06-25-2023 08:36-0400 Body height 165.[address] Yung Valenzuela Work Phone: [facility] 06-25-2023 08:36-0400 Body mass index (BMI) [Ratio] 29.6 kg/m2 Dr. Yung Valenzuela Work Phone: [facility] 06-25-2023 08:36-0400 Body temperature 97.5 [degF] Dr. Yung Valenzuela Work Phone: [facility] 06-25-2023 08:36-0400 Body weight 80.[address] Yung Valenzuela Work Phone: [facility] 06-25-2023 08:36-0400 Diastolic blood pressure 75 mm[Hg] Dr. Yung Valenzuela Work Phone: [facility] 06-25-2023 08:36-0400 Heart rate 73 /min Dr. Yung Valenzuela Work Phone: [facility] 06-25-2023 08:36-0400 Respiratory rate 18 /min Dr. Yung Valenzuela Work Phone: [facility] 06-25-2023 08:36-0400 SaO2% (BldA) [Mass fraction] 97 % Dr. Yung Valenzuela Work Phone: [facility] 06-25-2023 08:36-0400 Systolic blood pressure 108 mm[Hg] Dr. Yung Valenzuela Work Phone: [facility] 03-04-2023 13:53-0400 Body height 165.[address] Yung Valenzuela Work Phone: [facility] 03-04-2023 13:53-0400 Body mass index (BMI) [Ratio] 32.5 kg/m2 Dr. Yung Valenzuela Work Phone: [facility] 03-04-2023 13:53-0400 Body temperature 95 [degF] Dr. Yung Valenzuela Work Phone: [facility] 03-04-2023 13:53-0400 Body weight 88.[address] Yung Valenzuela Work Phone: [facility] 03-04-2023 13:53-0400 Diastolic blood pressure 72 mm[Hg] Dr. Yung Valenzuela Work Phone: [facility] 03-04-2023 13:53-0400 Heart rate 88 /min Dr. Yung Valenzuela Work Phone: [facility] 03-04-2023 13:53-0400 Respiratory rate 20 /min Dr. Yung Valenzuela Work Phone: [facility] 03-04-2023 13:53-0400 SaO2% (BldA) [Mass fraction] 90 % Dr. Yung Valenzuela Work Phone: [facility] 03-04-2023 13:53-0400 Systolic blood pressure 113 mm[Hg] Dr. Yung Valenzuela Work Phone: [facility] 01-06-2023 10:31-0400 Body mass index (BMI) [Ratio] 33.1 kg/m2 Dr. Yung Valenzuela Work Phone: [facility] 01-06-2023 10:31-0400 Body temperature 97.5 [degF] Dr. Yung Valenzuela Work Phone: [facility] 01-06-2023 10:31-0400 Body weight 90.[address] Yung Valenzuela Work Phone: [facility] 01-06-2023 10:31-0400 Diastolic blood pressure 81 mm[Hg] Dr. Yung Valenzuela Work Phone: [facility] 01-06-2023 10:31-0400 Heart rate 77 /min Dr. Yung Valenzuela Work Phone: [facility] 01-06-2023 10:31-0400 Respiratory rate 18 /min Dr. Yung Valenzuela Work Phone: [facility] 01-06-2023 10:31-0400 SaO2% (BldA) [Mass fraction] 97 % Dr. Yung Valenzuela Work Phone: [facility] 01-06-2023 10:31-0400 Systolic blood pressure 126 mm[Hg] Dr. Yung Valenzuela Work Phone: [facility] 09-04-2022 12:52-0500 Body height 165.1 cm Tootie Rodney 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[employer] Work Phone: [facility] 09-04-2022 12:52-0500 Body weight 91.17 kg Tootie Rodney 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[employer] Work Phone: [facility] 08-08-2022 15:26-0400 Body height 165.1 cm Jessica Daly 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[employer] Work Phone: [facility] 08-08-2022 15:26-0400 Body weight 91.17 kg Jessica Daly 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[employer] Work Phone: [facility] 08-08-2022 15:26-0400 Diastolic blood pressure 68 mm[Hg] Jessica Daly 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[employer] Work Phone: [facility] 08-08-2022 15:26-0400 Heart rate 84 /min Jessica Daly 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[employer] Work Phone: [facility] 08-08-2022 15:26-0400 SaO2% (BldA) [Mass fraction] 97 % Jessica Daly 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[employer] Work Phone: [facility] 08-08-2022 15:26-0400 Systolic blood pressure 120 mm[Hg] Jessica Maoman 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[employer] Work Phone: [facility] 08-05-2022 13:46-0400 Diastolic blood pressure 84 mm[Hg] Yung Rowland MD Work Phone: [facility] 08-05-2022 13:46-0400 Heart rate 75 /min Yung Rowland MD Work Phone: [facility] 08-05-2022 13:46-0400 Respiratory rate 13 /min Yung Rowland MD Work Phone: [facility] 08-05-2022 13:46-0400 SaO2% (BldA) [Mass fraction] 98 % Yung Rowland MD Work Phone: [facility] 08-05-2022 13:46-0400 Systolic blood pressure 145 mm[Hg] Yung Rowland MD Work Phone: [facility] 06-05-2022 14:17-0400 Body height 165.1 cm Tootie Rodney 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[employer] Work Phone: [facility] 06-05-2022 14:17-0400 Body weight 91.63 kg Tootie Rodney 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[employer] Work Phone: [facility] 05-28-2022 08:29-0400 Heart rate 88 /min Tootie Rodney 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[employer] Work Phone: [facility] 05-28-2022 08:29-0400 Respiratory rate 18 /min Tootie Rodney 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[employer] Work Phone: [facility] 05-28-2022 08:29-0400 SaO2% (BldA) [Mass fraction] 98 % Tootie Rashaun 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[employer] Work Phone: [facility] Encounters Encounter Date Encounter Type Care Provider Facility Start: 04-13-2025 ambulatory Yung Huertas y:[facility] Start: 04-04-2025 End: 04-04-2025 Patient encounter procedure Neela Apple NP-C -[facility] Work Phone: Start: 04-04-2025 End: 04-04-[address] Yung Valenzuela MD Work Phone: [facility] Work Phone: Start: 03-15-2025 End: 03-15-[address] Ulysses Sotelo MD -[facility] Work Phone: Start: 03-15-2025 End: 03-15-[address] Yung Valenzuela MD Work Phone: [facility] Work Phone: Start: 01-26-2025 End: 01-26-[address] Yung Valenzuela MD Work Phone: [facility] Work Phone: Start: 01-26-2025 End: 01-26-[address] Yung Valenzuela MD -Laboratory, [facility] Start: 01-26-2025 End: 01-26-2025 ambulatory Yung Valenzuela Facility:[facility] Start: 01-03-2025 End: 01-03-2025 Patient encounter procedure Neela VARGASC -[facility] Work Phone: Start: 01-03-2025 End: 01-03-2025 ambulatory Yung Valenzuela Facility:[facility] Start: 12-23-2024 End: 12-23-2024 Patient encounter procedure Jolene CONNORS -[facility] Work Phone: Start: 12-23-2024 End: 12-23-2024 ambulatory Jolene Gupta Facility:[facility] Start: 12-20-2024 End: 12-20-[address] Yung Valenzuela MD Work Phone: [facility] Work Phone: Start: 12-20-2024 End: 12-20-[address] [facility]: 12-20-2024 End: 12-20-2024 ambulatory Yung Valenzuela Facility:[facility] Start: 12-15-2024 End: 12-15-2024 Patient encounter procedure Jolene CONNORS -[facility] Work Phone: Start: 12-15-2024 End: 12-15-2024 ambulatory Yung Valenzuela Facility:[facility] Start: 11-29-2024 End: 11-29-[address] [facility] Start: 11-29-2024 End: 11-29-2024 ambulatory Yung Valenzuela Facility:[facility] Start: 11-26-2024 Non-patient / Non-visit Dr. Laurel Bass [facility] Work Phone: Start: 11-25-2024 Non-patient / Non-visit Dr. Laurel Bass [facility] Work Phone: Start: 11-24-2024 ambulatory Yung Valenzuela Facilit y:[facility] Start: 11-24-2024 End: 11-26-2024 Evaluation and management of inpatient Dr. Antoni Bass DO -Progressive Care Unit Work Phone: Start: 10-25-2024 End: 10-25-[address] Yung Valenzuela MD -Laboratory, [facility] Start: 10-25-2024 End: 10-25-2024 ambulatory Yung Valenzuela Facility:[facility] Start: 10-07-2024 End: 10-07-[address] Yung Valenzuela MD -Outpatient Breast Imaging Work Phone: Start: 10-07-2024 End: 10-07-2024 ambulatory [facility] Juan Carlos Valenzuela Facility:[facility] Start: 09-19-2024 End: 09-19-[address] Yung Valenzuela MD -Laboratory, Specimen Work Phone: Start: 09-19-2024 End: 09-19-2024 ambulatory [facility] Juan Carlos Valenzuela Facility:[facility] Start: 08-29-2024 End: 08-29-2024 [facility]ulatory [facility] Start: 07-20-2024 End: 07-20-2024 Patient encounter procedure Nicole Cates MD, PhD Work Phone: [facility] Comment on above: S/P insertion of spi nal cord stimulator (Primary Dx); Malfunction of spinal cord stimulator, initial encounter (HCC); Cervical spondylosis; Cervicogenic headache; Lumbar spondylosis; Facet arthropathy, lumbar Start: 07-08-2024 End: 07-08-2024 Telephone encounter Nicole Cates MD, PhD Work Phone: [facility] Start: 07-08-2024 End: 07-08-2024 ambulatory NICOLE CATES Facility:[facility] Start: 07-03-2024 End: 07-04-2024 Preprocedural examination done Nicole Cates MD, PhD Work Phone: [facility] Work Phone: Start: 07-03-2024 End: 07-04-2024 Telephone encounter Nicole Cates MD, PhD Work Phone: [facility] Start: 07-01-2024 End: 07-01-2024 Admission to establishment [facility] 1 Pre Surgical Testing Start: 07-01-2024 End: 07-01-2024 Preprocedural examination done Pst 1 [facility] Start: 07-01-2024 End: 07-01-2024 ambulatory YUNG VALENZUELA Pre Surgical Testing Comment on above: Malfunction of spina l cord stimulator, initial encounter (HCC) (Primary Dx); Pre-op examination; Mixed hyperlipidemia; Essential hypertension; KAVON on CPAP; Controlled type 2 diabetes mellitus without complication, without long-term current use of insulin (HCC) Start: 06-22-2024 End: 06-22-2024 Telephone encounter Nicole Cates MD Work Phone: [facility] Comment on above: Patient Update (CARLOS FAN JUAN SUBMITTED ) Start: 05-17-2024 Telephone encounter Nicole zamora MD Work Phone: [facility] Start: 05-06-2024 End: 05-06-2024 ambulatory NICOLE CATES Facility:[facility] Start: 05-03-2024 End: 05-03-2024 ambulatory Yung Valenzuela Facility:[facility] Start: 04-29-2024 End: 04-29-2024 Admission to establishment [facility] 1 Pre Surgical Testing Start: 04-29-2024 End: 04-29-2024 Preprocedural examination done [facility] Work Phone: Start: 04-29-2024 End: 04-29-2024 ambulatory SOLA KINCAID Pre Surgical Testing Comment on above: Pre-op examination ( Primary Dx); Malfunction of spinal cord stimulator, initial encounter (HCC); Essential hypertension; Mixed hyperlipidemia; Controlled type 2 diabetes mellitus without complication, without long-term current use of insulin (HCC); KAVON on CPAP Start: 04-27-2024 Encounter for other preprocedural examination SOLA KINCAID [facility] Start: 04-27-2024 Preprocedural examination done [facility] Start: 03-16-2024 End: 03-16-2024 Patient encounter procedure Nicole Cates MD Work Phone: [facility] Comment on above: S/P insertion of spi nal cord stimulator (Primary Dx); Malfunction of spinal cord stimulator, initial encounter ([facility]); Cervical spondylosis; Cervicogenic headache; Chronic cervical pain Start: 03-16-2024 End: 03-16-2024 ambulatory [facility] Facility:[facility] Start: 01-14-2024 End: 01-14-2024 ambulatory [facility] Facility:[facility] Start: 01-14-2024 End: 01-14-2024 Subsequent hospital visit by physician [facility] Work Phone: Radiology Comment on above: S/P insertion of spi nal cord stimulator [Z96.89] Start: 01-01-2024 Telephone encounter Nicole zamora MD Work Phone: [facility] Comment on above: Patient Update (SCS battery swap submitted for prior auth - [place]) Start: 12-29-2023 End: 12-29-[address] Yung Valenzuela Work Phone: [facility] Work Phone: Start: 12-29-2023 End: 12-29-[address] Yung Valenzuela Work Phone: [facility]-Pulmonary Medicine [facility] Work Phone: Start: 12-24-2023 Telephone encounter Nicole zamora MD Work Phone: [facility] Comment on above: Patient Question Start: 12-23-2023 End: 12-23-2023 Patient encounter procedure Nicole Cates MD Work Phone: [facility] Comment on above: S/P insertion of spi nal cord stimulator (Primary Dx); Malfunction of spinal cord stimulator, initial encounter ([facility]) Start: 12-23-2023 End: 12-23-2023 ambulatory S[facility]F [facility] Start: 10-01-2023 End: 10-01-[address] Yung Valenzuela Work Phone: [facility] Work Phone: Start: 10-01-2023 End: 10-01-[address] Yung Valenzuela Work Phone: [facility]-Outpatient Breast Imaging Work Phone: Start: 08-18-2023 End: 08-18-[address] Yung Valenzuela Work Phone: [facility] Work Phone: Start: 08-18-2023 End: 08-18-[address] Yung Valenzuela Work Phone: [facility] Start: 06-25-2023 End: 06-25-[address] [facility] Work Phone: Start: 04-07-2023 End: 04-07-[address] Yung Valenzuela Work Phone: [facility] Work Phone: Start: 04-07-2023 End: 04-07-[address] Yung Valenzuela Work Phone: [facility] Start: 03-04-2023 End: 03-04-[address] [facility]ung Valenzuel[facility] Start: 01-22-2023 Refill Jessica calabrese APRN.CNP Work Phone: NEUROLOGY Comment on above: Refill Request Start: 01-06-2023 End: 01-06-[address] Yung Valenzuela Work Phone: [facility] Start: 12-08-2022 Patient encounter procedure [facility] Start: 12-02-2022 End: 12-02-2022 ambulatory [facility] Work Phone: Start: 12-02-2022 End: 12-02-2022 Patient encounter procedure [facility], Celia Ambrose Start: 09-10-2022 ambulatory Jessica Mao guanakito 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.[employer] Work Phone: NEUROLOGY Comment on above: Armodafinil 250mg Start: 09-04-2022 End: 09-04-2022 ambulatory Tootie Rodney 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.[employer] Work Phone: [facility] Comment on above: Cervical spondylosis (Primary Dx); Cervicogenic headache; Other chronic pain Start: 09-04-2022 End: 09-04-2022 Telemedicine consultation with patient Tootie Rodney 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.[employer] Work Phone: [facility] Start: 08-14-2022 End: 08-14-2022 Patient encounter procedure [facility], Specimen Start: 08-12-2022 Telephone encounter Serafin Fonseca Neurology Comment on above: PAP Therapy Follow U p (Mask refit and pressure change order for PAP) Start: 08-08-2022 End: 08-08-2022 Patient encounter procedure Jessica Daly 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.[employer] Work Phone: NEUROLOGY Comment on above: KAVON (obstructive sle ep apnea) (Primary Dx); RLS (restless legs syndrome); PLMD (periodic limb movement disorder); Hypersomnia; Long-term current use of stimulant; Essential hypertension, malignant Start: 08-07-2022 Telephone encounter Yung baptiste MD Work Phone: [facility] Comment on above: Procedure Follow Up Start: 08-05-2022 End: 08-05-2022 ambulatory Yung Rowland MD Work Phone: [facility] Comment on above: Procedure Start: 08-05-2022 End: 08-05-2022 Patient encounter procedure Yung Rowland MD Work Phone: [facility] Start: 08-01-2022 Refill Anabell Rodriguez 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.[employer] Work Phone: Neurology Start: 07-29-2022 Refill Anabell Rodriguez 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.[employer] Work Phone: Sleep Comment on above: Refill Request Start: 07-23-2022 ambulatory Charles mayer MD Work Phone: Neurology Comment on above: I'm your patient, [facility], please read Start: 06-05-2022 End: 06-05-2022 ambulatory Tootie Rodney 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.[employer] Work Phone: [facility] Comment on above: Cervical spondylosis (Primary Dx); Chronic cervical pain Start: 06-05-2022 End: 06-05-2022 Telemedicine consultation with patient Tootie Rodney APRN.[employer]ER [employer] Work Phone: [facility] Start: 05-28-2022 Telephone encounter Tootie castro 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.[employer] Work Phone: [facility] Comment on above: Injections Start: 05-28-2022 End: 05-28-2022 Patient encounter procedure Tootie Rodney 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.[employer] Work Phone: [facility] Comment on above: Cervical spondylosis (Primary Dx); Cervicogenic headache; Chronic cervical pain Start: 05-06-2022 Refill Charles mayer MD Work Phone: Sleep Comment on above: Refill Request Start: 04-21-2022 Telephone encounter Yung baptiste MD Work Phone: [facility] Comment on above: Appointment Start: 03-04-2022 Refill Charles mayer MD Work Phone: Sleep Comment on above: Refill Request Start: 01-29-2022 Refill Charles mayer MD Work Phone: Neurology Comment on above: Refill Request Start: 01-13-2019 End: 01-14-2019 Patient encounter procedure GARETH MILLER [facility] Start: 07-20-2017 Ambulatory CHARLES CERVANTES JR [facility] Procedures Date Procedure Procedure Detail Performing Clinician Start: 01-26-2025 Urine microalbumin/creatinine ratio measurement Dr. Yung Valenzuela MD Work Phone: Start: 01-26-2025 Urnls dip stick/tabl et reagent auto microscopy Dr. Yung Valenzuela MD Work Phone: Start: 01-26-[address] Yung Valenzuela MD Work Phone: Comment on above: Deficiency: <3.4 Mar ginal: 3.4 - 5.1 Adequate: >5.1 Start: 01-26-2025 Vitamin D, 25-hydrox y measurement Dr. Yung Valenzuela MD Work Phone: Comment on above: Vitamin D StatusDefi ciency: <20 ng/mL (50nmol/L)Insufficiency: 20-30 ng/mL (50-75 nmol/L)Sufficiency: 30-100 ng/mL (75-250 nmol/L)Toxicity: >100 ng/mL (>250 nmol/L) Start: 12-23-2024 Ultrasound elastogra phy of liver Dr. Yung Valenzuela MD Work Phone: Start: 11-29-2024 Endomysial antibody IgA level Dr. Yung Valenzuela MD Work Phone: Start: 11-29-2024 Flow cytometry cell surf marker techl only 1st Dr. Yung Valenzuela MD Work Phone: Start: 11-29-2024 Gliadin antibody, Ig A measurement Dr. Yung Valenzuela MD Work Phone: Comment on above: Negative 0 - 19 Weak Positive 20 - 30 Moderate to Strong Positive >30 Start: 11-29-2024 Gliadin antibody, Ig G measurement Dr. Yung Valenzuela MD Work Phone: Comment on above: Negative 0 - 19 Weak Positive 20 - 30 Moderate to Strong Positive >30 Start: 11-29-2024 Measurement of immunoglobulin A in serum specimen Dr. Yung Valenzuela MD Work Phone: Comment on above: Performed at: [address] [id number] Director: Horacio Zamorano PhD, Phone: [phone] Start: 11-29-2024 Measurement of renal function Dr. Yung Valenzuela MD Work Phone: Comment on above: GFR Calc Start: 11-29-2024 Plain X-ray abdomen Dr. Yung Valenzuela MD Work Phone: Start: 11-25-[address] Yung Valenzuela MD Work Phone: Start: 11-25-2024 Measurement of renal function Dr. Yung Valenzuela MD Work Phone: Comment on above: GFR Calc Start: 11-24-[address] Yung Valenzuela MD Work Phone: Start: 11-24-[address] Yung Valenzuela MD Work Phone: Start: 11-24-2024 X-ray of chest, PA a nd lateral views Dr. Yung Valenzuela MD Work Phone: Start: 11-24-2024 Urnls dip stick/tabl et reagent auto microscopy Dr. Yung Valenzuela MD Work Phone: Start: 11-24-2024 Computed tomography of abdomen and pelvis with intravenous contrast Dr. Yung Valenzuela MD Work Phone: Start: 10-07-2024 Screening mammography Sera Valenzuela MD Work Phone: Start: 10-01-2023 Screening mammography Sera Valenzuela Work Phone: Start: 08-08-2022 Drug tst prsmv instr mnt chem analyzers pr date Jessica Daly 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.[employer] Work Phone: Start: 08-08-2022 Ecg routine ecg w/le ast 12 lds w/i&r Jessica Daly APRN.[employer] Work Phone: Start: 09-03-2020 Colonoscopy Charles dillon Jr., MD Work Phone: Start: 05-14-2018 Mammography Charles dillon Jr., MD Work Phone: Plan of Treatment Date Care Activity Detail Author Start: 2038 RSV Vaccine (1 - 1-d ose 75+ series) RSV Vaccine (1 - 1-dose 75+ series) [facility] Start: 11-15-2031 Urine microalbumin profile [facility] Start: 09-03-2025 Colonoscopy COLONOSCOPY [facility] Start: 09-03-2025 COLORECTAL CANCER SCREENING COLORECTAL CANCER SCREENING [facility] Start: 09-03-2025 Screening for malign ant neoplasm of colon [facility] Start: 07-17-2025 Urine microalbumin profile DTAP,TDAP,TD (2 - Td or Tdap) [facility] Start: 07-01-2025 BP Controlled (<130/80) BP Controlle d (<130/80) [facility] Start: 04-29-2025 BP Controlled (<130/80) BP Controlle d (<130/80) [facility] Start: 04-11-2025 [facility] Start: 01-26-2025 Thiamine measurement [facility] Start: 01-26-2025 Vitamin B6 measurement [facility] Start: 11-26-2024 Patient discharge [facility] Start: 11-25-2024 [facility] Start: 11-24-2024 Ambulation without limitation [facility] Start: 11-24-2024 Assessment of risk o f venous thromboembolism [facility] Start: 11-24-2024 Care regimes management [facility] Start: 11-24-2024 Incentive spirometry [facility] Start: 11-24-2024 Insertion of cathete r into peripheral vein [facility] Start: 11-24-2024 Measuring intake and output [facility] Start: 11-24-2024 Notification of physician [facility] Start: 11-24-2024 Oxygen therapy [facility] Start: 11-24-2024 Providing care accor ding to standard [facility] Start: 11-24-2024 End: 11-24-2024 [facility] Start: 11-24-2024 Following clinical pathway protocol [facility] Start: 11-24-2024 Admission procedure [facility] Start: 11-24-2024 [facility] Start: 07-08-2024 End: 07-08-2024 [facility] Comment on above: INSRT OR RPLCMT SPIN AL CORD NSTIM PULSE GENERATOR OR RECVER W/ POCKET CREATE CONNECT BTWN ELTRD ARRAY AND PULSE GENERATOR OR RECVR Start: 07-08-2024 End: 07-08-2024 Insj/rplcmt spi npgr dir/induxive coupling [facility] Start: 07-08-2024 Subsequent hospital visit by physician [facility] Comment on above: Malfunction of spina l cord stimulator, initial encounter (HCC) [T85.192A] Start: 07-01-2024 End: 07-01-2024 ambulatory 07/01/2024 9:20 AM EDT PAT Pre Surgical Testing [address] [place] [address] INSRT OR RPLCMT SPINAL CORD NSTIM PULSE GENERATOR OR RECVER W/ POCKET CREATE CONNECT BTWN ELTRD ARRAY AND PULSE GENERATOR OR RECVR Pre [facility] Testing Comment on above: INSRT OR RPLCMT SPIN AL CORD NSTIM PULSE GENERATOR OR RECVER W/ POCKET CREATE CONNECT BTWN ELTRD ARRAY AND PULSE GENERATOR OR RECVR Start: 06-26-2024 Covid-19 Vaccine ( season) Covid-19 Vaccine ( season) [facility] Start: 06-26-2024 Covid-19 Vaccine ( season) Covid-19 Vaccine ( season) [facility] Start: 06-26-2024 Influenza vaccination Influenza Vacc ine (#1) [facility] Start: 05-06-2024 End: 05-06-2024 Admission to [facility] Comment on above: INSRT OR RPLCMT SPIN AL CORD NSTIM PULSE GENERATOR OR RECVER W/ POCKET CREATE CONNECT BTWN ELTRD ARRAY AND PULSE GENERATOR OR RECVR Start: 05-06-2024 End: 05-06-2024 Insj/rplcmt spi npgr dir/induxive coupling INSRT OR RPLCMT SPINAL CORD NSTIM PULSE GENERATOR OR RECVER W/ POCKET CREATE CONNECT BTWN ELTRD ARRAY AND PULSE GENERATOR OR RECVR Malfunction of spinal cord stimulator, initial encounter (HCC) 05/06/2024 2:30 PM EDT [facility] Start: 05-06-2024 Subsequent hospital visit by physician [facility] Comment on above: Malfunction of spina l cord stimulator, initial encounter (HCC) [T85.192A] Start: 04-29-2024 End: 04-29-2024 ambulatory 04/29/2024 11:20 AM EDT PAT Pre Surgical Testing [address] [place] [address] INSRT OR RPLCMT SPINAL CORD NSTIM PULSE GENERATOR OR RECVER W/ POCKET CREATE CONNECT BTWN ELTRD ARRAY AND PULSE GENERATOR OR RECVR Pre Surgical Testing Comment on above: INSRT OR RPLCMT SPIN AL CORD NSTIM PULSE GENERATOR OR RECVER W/ POCKET CREATE CONNECT BTWN ELTRD ARRAY AND PULSE GENERATOR OR RECVR Start: 2023 RSV Vaccine (1 - 1-d ose 60+ series) RSV Vaccine (1 - 1-dose 60+ series) [facility] Start: 08-08-2023 BP CONTROLLED (<130/80) BP CONTROLLE D (<130/80) [facility] Start: 06-26-2023 Covid-19 Vaccine ( season) Covid-19 Vaccine ( season) [facility] Start: 12-08-2022 Thiamine measurement [facility] Start: 12-08-2022 Vitamin B6 measurement [facility] Start: 09-30-2022 BP CONTROLLED (<130/80) BP CONTROLLE D (<130/80) [facility] Start: 06-26-2022 Influenza vaccination INFLUENZA (#1) [facility] Start: 01-31-2022 End: 04-02-2022 CBC W Auto Differential panel - Blood CBC + DIFF Lab Routine PLMD (periodic limb movement disorder) Expected: 01/31/2022, Expires: 04/02/2022 [facility] Work Phone: Comment on above: Expected: 01/31/2022 , Expires: 04/02/2022 Start: 01-31-2022 End: 04-02-2022 Comprehensive metabolic 2000 panel - Serum or Plasma COMP METABOLIC PANEL Lab Routine PLMD (periodic limb movement disorder) Expected: 01/31/2022, Expires: 04/02/2022 [facility] Work Phone: Comment on above: Expected: 01/31/2022 , Expires: 04/02/2022 Start: 12-23-2021 COVID-19 VACCINE (4 - Booster for Pfizer series) COVID-19 VACCINE (4 - Booster for Pfizer series) [facility] Start: 10-18-2021 COVID-19 VACCINE (4 - Booster for Pfizer series) COVID-19 VACCINE (4 - Booster for Pfizer series) [facility] Start: 12-28-2020 Hepatitis B surface antibody level LDL CHOLESTEROL [facility] Start: 07-25-2020 ANNUAL PCP TEAM SAWMILL TALLY CLERK HAZEL DISEASE VISIT ANNUAL PCP TEAM CHRONIC DISEASE VISIT [facility] Start: 06-30-2020 Hemoglobin A1c measurement HbA1C [facility] Start: 06-30-2020 Hemoglobin A1c/Hemoglobin.total in Blood HBA1C [facility] Start: 05-14-2019 Mammography MAMMOGRAM [facility] Start: 05-14-2019 Screening for malign ant neoplasm of breast Mammogram Screening [facility] Start: 12-11-2018 Glaucoma screening Dilated Retinal E xam [facility] Start: 12-11-2018 Hepatitis C antibody , confirmatory test DILATED RETINAL EXAM [facility] Start: 08-31-2018 Hepatitis B screening URINE ALBUMIN:CREATININE RATIO [facility] Start: 2013 SHINGRIX VACCINE (1 of 2) MILLS GRIX VACCINE (1 of 2) [facility] Start: 2008 COLOGUARD (FIT-DNA) COLOGUARD (FIT-D NA) [facility] Start: [address] COLONOGRAPHY [facility] Start: 2008 FECAL OCCULT BLOOD FECAL OCCULT BLOO D [facility] Start: 2008 Screening for malign ant neoplasm of colon [facility] Start: 2008 SIGMOIDOSCOPY SIGMOIDOSCOPY [facility] Start: 11-23-1997 HEPATITIS B (2 of 3 - Risk 3-dose series) [facility] Start: 1981 ANNUAL PCP TEAM SAWMILL TALLY CLERK HAZEL DISEASE VISIT ANNUAL PCP TEAM CHRONIC DISEASE VISIT [facility] Start: 1981 Anxiety Screening Anxiety Screening [facility] Start: 1981 BP Controlled (<130/80) BP Controlle d (<130/80) [facility] Start: 1981 HIV SCREENING HIV SCREENING [facility] Start: 1981 HIV screening HIV Screening [facility] Start: 1979 ONE PNEUMOVAX PRIOR TO AGE 65 ONE PNEUMOVAX PRIOR TO AGE 65 [facility] Start: 1973 3 comp foot exam completed DIABETIC FOOT EXAM [facility] Start: 1973 Diabetic foot examination Diabetic F oot Exam [facility] Start: 1969 PNEUMOCOCCAL (1 - PCV) PNEUMOCOCCAL (1 - PCV) [facility] Start: 1969 Pneumococcal vaccination Pneum ococcal Vaccine (1 of 2 - PCV) [facility] Gtzdl-[id number]-tumpgzcmtap. tumor marker [Units/volume] in Serum or Plasma [facility] C reactive protein [Mass/volume] in Serum or Plasma [facility] Cancer Ag 19-9 [Units/volume] in Serum or Plasma [facility] CBC W Auto Different ial panel - Blood [facility] Comprehensive metabo lic 1999 panel - Serum or Plasma [facility] CT Abdomen and Pelvi s WO and W contrast IV [facility] Cytoplasmic ANCA Screen [facility] Dstr nrolytc agnt parverteb fct addl crvcl/thora DSTR NROLYTC AGNT PARVERTEB FCT ADDL CRVCL/THORA Procedures Routine Cervical spondylosis Ordered: 08/05/2022 [facility] Work Phone: Comment on above: Ordered: 08/05/2022 Dstr nrolytc agnt parverteb fct sngl crvcl/thora DSTR NROLYTC AGNT PARVERTEB FCT SNGL CRVCL/THORA Procedures Routine Cervical spondylosis Ordered: 08/05/2022 [facility] Work Phone: Comment on above: Ordered: 08/05/2022 ECG COMPLETE ECG COMPLETE ECG Routine Long-term current use of stimulant 08/08/2022 4:31 PM EDT [facility] Work Phone: Hemoglobin A1c/Hemoglobin.total in Blood [facility] Lipid 1996 panel - S mehdi or Plasma [facility] Mitochondria Ab [Presence] in Serum [facility] Patient referral [facility] Work Phone: Procedure [facility] Prothrombin time [facility] Smooth muscle Ab [Presence] in Serum [facility] End: 01-21-2025 XR Lumbar spine Views W flexion and W extension XR LUMBAR MOTION 4V AP/LAT/ FLEX/EXT Radiology Routine S/P insertion of spinal cord stimulator Malfunction of spinal cord stimulator, initial encounter (HCC) 1 Occurrences starting 12/23/2023 until 01/21/2025 [facility] Work Phone: Comment on above: 1 Occurrences starti ng 12/23/2023 until 01/21/2025 XR Lumbar spine View s W flexion and W extension XR LUMBAR MOTION 4V AP/LAT/ FLEX/EXT Radiology Routine S/P insertion of spinal cord stimulator Malfunction of spinal cord stimulator, initial encounter ([facility]) 01/14/2024 2:23 PM EDT [facility] Work Phone: End: 01-21-2025 XR Thoracic spine AP and Lateral and Swimmers XR THORACIC GENERAL 3V AP/LAT/SWIMMERS Radiology Routine S/P insertion of spinal cord stimulator Malfunction of spinal cord stimulator, initial encounter ([facility]) 1 Occurrences starting 12/23/2023 until 01/21/2025 [facility] Work Phone: Comment on above: 1 Occurrences starti ng 12/23/2023 until 01/21/2025 XR Thoracic spine AP and Lateral and Swimmers XR THORACIC GENERAL 3V AP/LAT/SWIMMERS Radiology Routine S/P insertion of spinal cord stimulator Malfunction of spinal cord stimulator, initial encounter ([facility]) 01/14/2024 2:23 PM EDT [facility] Work Phone: [facility] Immunizations Immunization Date Immunization Notes Care Provider [facility] 08-26-2023 influenza virus vaccine, unspecified formulation Pst 1 [facility] 11-15-2021 tetanus toxoid, redu migdalia diphtheria toxoid, and acellular pertussis vaccine, adsorbed Jessica Daly 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.[employer] Work Phone: [facility] 08-01-2021 influenza, seasonal, injectable Charles Cervantes Jr., MD Work Phone: [facility] Work Phone: 08-01-2021 Seasonal, quadrivale nt, recombinant, injectable influenza vaccine, preservative free Charles Cervantes Jr., MD Work Phone: [facility] 01-24-2021 Covid (Pfizer) [facility] 01-03-2021 Covid (Pfizer) [facility] 07-18-2020 influenza, injectabl e, quadrivalent, contains preservative Charles Cervantes Jr., MD Work Phone: [facility] 08-29-2019 influenza, injectabl e, quadrivalent, preservative free Charles Cervantes Jr., MD Work Phone: [facility] 08-29-2019 influenza, seasonal, injectable Charles Cervantes Jr., MD Work Phone: [facility] Work Phone: 07-17-2015 tetanus toxoid, redu migdalia diphtheria toxoid, and acellular pertussis vaccine, adsorbed Charles Cervantes Jr., MD Work Phone: [facility] 09-10-2009 novel [id number], preservative-free, injectable Charles Cervantes Jr., MD Work Phone: [facility] 10-26-1997 hepatitis B vaccine, adult dosage Charles Cervantes Jr., MD Work Phone: [facility] 10-26-1997 hepatitis B vaccine, unspecified formulation Yung Rowland MD Work Phone: [facility] Payers Date Payer Category Payer Self-pay [id number] 2019 Unknown RAGHAV BECKFORD GRACIELA [id number] 2019-Present [phone] [address] [place] [address] Indemnity [id number] 2019 Unknown [id number] 2019 Unknown [id number] 2010 Unknown ANTHEM [id number] Unknown COMMERCIAL OTHER [id number] Unknown [id number] Unknown [id number] Unknown [id number] Unknown [id number] Unknown [id number] Unknown [id number] Unknown [id number] Unknown [id number] Unknown [id number] Unknown [id number] Unknown [id number] [id number] Unknown [id number] [id number] Unknown [id number] [id number] Unknown [id number] [id number] Unknown [id number] [id number] Unknown [id number] [id number] Unknown [id number] Unknown [id number] Social History Date Type Detail Facility Start: 06-18-2011 End: 04-29-2024 Tobacco smoking status NHIS Ex-smoker [facility] Start: 10-26-1983 End: 10-26-2003 History of tobacco use Cigarette Smoker [facility] Start: 10-01-2021 End: 07-20-2024 Alcohol intake Current drinker of alcohol (finding) [facility] Start: 10-01-2021 End: 12-23-2023 Alcohol intake [facility] Start: 1965 Sex Assigned At Not on file C [facility] Start: 05-10-2022 End: 08-08-2022 Exposure to SARS-CoV-2 (event) Not sure [facility] Start: 10-26-1983 End: 10-26-2003 History of tobacco use Current smoker [facility] Work Phone: Start: 06-18-2011 End: 04-29-2024 Tobacco use and exposure Smokeless tobacco non-user [facility] Work Phone: Start: 06-05-2021 End: 12-29-2023 Tobacco smoking status AZIS Unknown if ever smoked [facility] Start: 1965 Sex Assigned At Female [facility] Start: 08-08-2022 End: 12-23-2023 Tobacco use panel [facility] Adult Depression Screening Assessment 0 [facility] Start: 08-14-2020 Gender identity Identifies as female gender (finding) [facility] Start: 08-14-2020 Sexual orientation Heterosexual (fin ding) [facility] Start: 04-29-2024 Alcohol Comment very rare wine [facility] Start: 12-15-2024 Tobacco smoking stat us AZIS Never smoked tobacco (finding) [facility] Start: 01-01-2025 End: 02-01-2025 Sex Female (finding) [facility] Medical Equipment Procedure Code Equipment Code Equipment Origin al Text Equipment Identifier Dates Wavewriter Alpha Implantable Pulse Generator Kit - [id number] Start: 07-08-2024 Goals Date Patient Goal Desired Activity /State Functional Status Date Assessment Result Facility 11-26-2024 Functional status Ambulates;Alberto r;Bathroom Privilege [facility] Work Phone: Mental Status Date Assessment Result Facility 11-26-2024 Cognitive function Voice/Name [facility] Work Phone: Clinical Notes 04-14-2011 to 04-04-2025 Note Date & Type Note Facility 04-04-2025 Progress note [facility] 04-04-2025 Progress note Note Date/Time April 04, 2025 1:20pm [facility] [address] [place] [address]. [address] [place] [address] OFFICE VISIT Date of Service: 04/04/25 MR#: [id number] Acct: [id number] Name: JESS MEEKS Rep #: [id number] : 1965 Provider: DORY Apple Age/Sex: 59/F Location: [facility].PMW Status: Signed Assessment and Plan Assessment and Plan (1) Obstructive sleep apnea on CPAP: Status: Chronic Plan: Discussed treatment alternatives such as oral appliance or spare device. Unfortunately, either of these choices would require a repeat sleep test. The patient is concerned about cost. She reports that the biggest factor keeping her from being compliant with PAP therapy is mask fit. She states that she has a small nose which causes the mask to dislodge easily when she sleeps on her side. She is agreeable to a Pap education visit to evaluate if there is an alternative interface that will be more comfortable. I did explain to her that PAP therapy remains gold standard and controlling obstructive sleep apnea. She will return to the office in 3 months so that I may evaluate her response to thenew mask/headgear/interface and compliance. (2) Obesity: Status: Chronic Qualifiers: Obesity type: due to excess calories Obesity classification: adult class 1 (BMI 30 - 34.9) Serious obesity comorbidity presence: with serious comorbidity Body mass index: BMI 31.0-31.9 Qualified Code(s): E66.811 - Obesity, class 1; E66.09 - Other obesity due to excess calories; Z68.31 - Body mass index [BMI] 31.0-31.9, adult Plan: Complicates exam, plan, care and prognosis. Continue to encourage healthy weight loss. Orders: Orders Self Mgmnt Educ & Training Today G47.33 - Obstructive sleep apnea (adult) (pediatric), Z99.89 - Dependence on other enabling machines and devices Plan Details Additional Comments: This note was generated with Fi[employer]tt dictation software. It may contain incorrect words, spelling, and punctuation that were not noted in checking the note before signing. Follow Up: 3 Months HPI HPI Comments Details: This patient presents to the office today for follow-up of her obstructive sleep apnea. She is ambulatory and currently on room air. She has not recently been seen in the ED or urgent care for any respiratory illness. She has not required any antibiotics or prednisone for any breathing problems. She denies any difficulty with shortness of breath. She denies any cough, sputum production or hemoptysis. She has not had any wheezing, chest tightness, chest pain or palpitations. She also denies any fever, chills or body aches. She admits that she has not been compliant with PAP therapy because she does not like the machine. She would like to discuss alternatives. She recalls our conversation at the last office visit with regard to a possible dental appliance. She has marketplace insurance and therefore cost is a significant concern for her. Compliance report not available. She has not used the machine in over 90 days. Intake Vital Signs 01/03/25 08:44 04/04/25 08:23 Height 5 ft 5 in 5 ft 5 in Weight: 183 lb BMI 30.4 BP 102/72 Blood Pressure Location Rt brachial Position Sitting Respiration 18 Pulse 83 Pulse Source NIBP Temp 97.2 F L Temperature Source Temporal Artery Pulse Oximetry (%) 97 Oxygen Delivery Method room air Intake Visit Reasons: 3 M FU Chief Complaint: cough, drainage, left eye redness Manager Advertising Required: No DME Vendor: [employer] Accompanied by: Self Is patient in pain?: No Allergies naproxen Allergy (Unknown, Verified 04/04/25 12:47) hives cat dander Allergy (Verified 04/04/25 12:47) NEEDS FOLLOW-UP pollen extracts (pollens) Allergy (Verified 04/04/25 12:47) NEEDS FOLLOW-UP bupropion (From Wellbutrin) Adverse Reaction (Unknown, Verified 04/04/25 12:47) Diarrhea cyclosporine (From Restasis) Adverse Reaction (Verified 04/04/25 12:47) eye irritation metformin Adverse Reaction (Verified 04/04/25 12:47) Diarrhea sertraline (From Zoloft) Adverse Reaction (Verified 04/04/25 12:47) Diarrhea Nkyjtsf-BGF-OhH Reductase Inhibitor Adverse Reaction (Verified 04/04/25 12:47) muscle cramps Medications ?Medication ?Instructions ?Recorded ?Confirmed ?Type multivitamin (One Daily 1 tab PO DAILY 06/05/2103/26 History Multivitamin tablet) lisinopril 20 mg tablet 20 mg PO DAILY 12/29/2303/26 History ascorbic acid (vitamin C) 500 mg 500 mg PO DAILY 11/2404/04/25 History capsule calcium 600 mg (as 1 cap PO DAILY 11/24/2403/26 History carbonate)-vitamin D3 5 mcg (200 unit) capsule (Calcium 600 + D(3)) calcium carbonate (Tums Extra 600 mg PO TID PRN dyspep nicolas 11/24/24 04/04/25 History Strength Smoothies) duloxetine 60 mg capsule,delayed 60 mg PO DAILY 04/04/25 History release oxybutynin chloride 10 mg 10 mg PO DAILY 11/24/2403/26 History tablet,extended release 24 hr zinc gluconate 50 mg tablet 50 mg PO DAILY 11/24/24 History acetaminophen 650 mg 1,300 mg PO Q12H 12/08/24 History tablet,extended release (Tylenol Arthritis Pain) cyclobenzaprine 10 mg tablet 10 mg PO QDAY PRN 5 04/04/25 History diclofenac sodium 75 mg 75 mg PO PRN pain 12/08/24 0 04/04/25 History tablet,delayed release estradiol 0.01% (0.1 mg/gram) 1 g vaginal 3XW 12/08/24 04/04/25 History vaginal cream lactobacillus combination no.4 3 3,000 mmu cells PO QD AY 12/08/24 04/04/25 History billion cell capsule (Probiotic) minocycline 50 mg capsule 50 mg PO 12/08/24 04/04/25 H istory polyethylene glycol 3350 17 17 g PO QDAY 12/08/2403/26 History gram/dose oral powder cetirizine 10 mg capsule (Zyrtec) 10 mg PO HS allergy symptoms 12/15/24 04/04/25 History cholecalciferol (vitamin D3) 125 125 mcg PO QDAY 12/1504/04/25 History mcg (5,000 unit) capsule coenzyme Q10 100 mg capsule (Co 100 mg PO QDAY 5 04/04/25 History Q-10) pantoprazole 40 mg tablet,delayed 40 mg PO .breakfast 1 month #30 03/15/25 04/04/25 Rx release tabs rosuvastatin 5 mg tablet 10 mg PO DAILY 03/15/2503/26 History fluticasone propionate 50 1 spray intranasal QDAY 03/2604/04/25 History mcg/actuation nasal spray,suspension (Flonase Allergy Relief) vitamin E 400 unit tablet 45 mg PO QDAY 04/04/2504/04 History Have you fallen in the past year?: No PFSH Medical History Constipation Gall stones Leukocytosis Acute kidney injury Encounter for screening colonoscopy Pap smear for cervical cancer screening Screening mammogram for breast cancer Headache Elevated liver function tests Decreased GFR Hyperlipemia Multiple complications of diabetes mellitus Vitamin B deficiency Vitamin D deficiency ADHD (attention deficit hyperactivity disorder) Insomnia Periodic limb movement Carpal tunnel syndrome Back ache Urge incontinence Abdominal bloating Diarrhea Colon polyps Abdominal pain Anxiety Kidney disease GERD (gastroesophageal reflux disease) GI bleed CPAP (continuous positive airway pressure) dependence Former smoker Class 1 obesity with body mass index (BMI) of 33.0 to 33.9 in adult History of insomnia Obstructive sleep apnea on CPAP Acne rosacea PTSD (post-traumatic stress disorder) Depression Degenerative disc disease Chronic neck and back pain Limb weakness Hay fever Fatigue Diabetes Shoulder pain Hemorrhoids SOB (shortness of breath) Hypertension Arthritis Surgical History History of tonsillectomy Fusion of lumbar spine Hx of cholecystectomy H/O: hysterectomy History of spinal surgery Family History Father Hypertension Myocardial infarction Arthritis Dementia Heart disease Mother Diabetes Arthritis Kidney disease Heart disease Sister Cancer Brother Alcoholism Aunt FH: mental illness Grandfather Alcoholism Grandmother Cancer Uncle Diabetes Cancer Alcoholism Aunt Diabetes Breast cancer Daughter IBS (irritable bowel syndrome) Social History Smoking Status: Never smoker alcohol intake: current alcohol intake frequency: holidays/special occasions only substance use type: does not use Review of Systems Resp Respiratory: Yes as per HPI Exam Const Constitutional: Positive conversant, cooperative, in no acute respiratory distress, healthy appearing, well developed, well nourished and good hygiene Head Head: Yes normocephalic, Yes atraumatic and No cyanosis of lips/distal nose Eyes Eye: Positive clear conjunctiva; Negative nystagmus or scleral abnormality Ears Ear: Positive hearing normal and external ears normal Nose Nose: Yes external nose normal Mouth Mouth: Positive oral mucosae normal Neck Neck: Positive normal visual inspection, full ROM and trachea midline Chest Wall Chest: Positive normal inspection of the chest and symmetric chest movement; Negative increased A/P diameter Resp lung sounds: Positive clear to auscultation, good air exchange, normal expiratory time and normal respiratory effort; Negative diminished lung sounds, wheezes, rhonchi or rales Cardio Cardiac: Positive regular rate, regular rhythm, S1 normal and S2 normal; Negative murmur GI GI: Positive normal to inspection; Negative distended Genitourinary: Positive deferred Musc Musculoskeletal: Positive steady gait and ROM normal; Negative kyphosis or scoliosis Skin Pulmonary Skin Exam: Positive intact; Negative lesion, rash or ulcers Extremities Extremities: No clubbing and No cyanosis Neuro Neurologic: Yes no focal neuro deficits, Yes conversant, Yes cooperative, Yes normal cognition, Yes normal coordination, Yes normal concentration and Yes understands questions Psych Appearance: Positive grossly normal, eye contact and well kempt Mental Status: Positive mental status grossly normal Mood: Positive congruent mood Affect: Positive normal affect Coding Level of Care Code Off vis,est,level 4 Diagnoses Obstructive sleep apnea on CPAP G47.33; Z99.89 Class 1 obesity due to excess calories with serious comorbidity and body mass index (BMI) of 31.0 to 31.9 in adult E66.811; E66.09; Z68.31 Obesity type: due to excess calories Obesity classification: adult class 1 (BMI 30 - 34.9) Serious obesity comorbidity presence: with serious comorbidity Body mass index: BMI 31.0-31.9 Clinical Quality Measures Falls Risk Screening/Assistive Devices Have you fallen in the past year?: No 04/04/25 1320 <Electronically signed by Neela pablo GREEN BELT GREEN BELT-C> Date _ Neela Apple NP GREEN BELT-C Cosigner Signature: Date (if applicable) CC: Dr. Yung Valenzuela MD ~ [facility] Work Phone: 1(823) 626-963802-20-2025 Evaluation note* Diagnosis Onset Date Resolution Status Admit Date Constipation acute November 9:51am Metabolic dysfunction-associated steatotic liver disease (MASLD) chronic December 15 9:51am Obesity chronic January 03 3:03pm Obstructive sleep apnea on CPAP chronic January 03, 2025 3:03pm GERD (gastroesophageal reflu x disease) chronic March 15, 2025 1 :56pm Metabolic dysfunction-associated steatotic liver disease (MASLD) chronic March 15, 2025 1 :56pm Obesity chronic April 04 12:43pm Obstructive sleep apnea on CPAP chronic April 04, 2025 12:43pm [facility] Work Phone: 1(822) 112-435902-01-2025 [facility] Medical Records Department [address] [place] [address] Discharge Summary 11/26/24 1159 MR#: [id number] Acct: [id number] Name: JESS MEEKS Rep #: [id number] : 1965 59 From: Antoni Bass DO PCP: Dr. Yung Valenzuela MD Status:DIS IN Location: [facility] [id number] Providers Date of Admission: 11/24/24 Date of Discharge: 11/26/24 Primary Care Physician: Dr. Yung Valenzuela MD Reason For Visit: ABDOMINAL PAIN W/ DEHYDRATION Diagnosis Discharge Diagnosis (1) Abdominal pain: Status: Acute Code(s): R10.9 - Unspecified abdominal pain Plan 1. Abdominal pain with constipation-continue laxatives for now, monitor patient's status #2 DIANA with dehydration-patient's creatinine and BUN are normal today #3 lactic acid elevation-etiology unclear at this point, patient was taken off her metformin #4 hyperlipidemia-patient is currently on a statin #5 leukocytosis #6 type 2 diabetes-fingerstick blood sugars will be obtained, sliding scale insulin will be administered per sliding scale #7 bacteremia with gram-negative dania-not identified at the time of this dictation #8 bacteriuria with strep agalactiae Total clinical time spent by myself addressing the patient's medical issues, reviewing all her data, and collaborating with patient's care team: 35-minute Medications at Discharge Home Medications cetirizine 10 mg capsule (Zyrtec) 10 mg PO DAILY PRN allergy symptoms 03/05/21 rosuvastatin 5 mg tablet 5 mg PO DAILY 03/05/21 acetaminophen 650 mg tablet,extended release (Tylenol Arthritis Pain) 650 mg PO Q12H 06/05/21 multivitamin (One Daily Multivitamin tablet) 1 tab PO DAILY 06/05/21 ipratropium bromide 21 mcg (0.03 %) nasal spray 1 spray intranasal BID-TID PRN allergy symptoms #30 mL 01/08/23 lisinopril 20 mg tablet 20 mg PO DAILY 12/29/23 ascorbic acid (vitamin C) 500 mg capsule 500 mg PO DAILY 11/24/24 calcium 600 mg (as carbonate)-vitamin D3 5 mcg (200 unit) capsule (Calcium 600 + D(3)) 1 cap PO DAILY 11/24/24 calcium carbonate (Tums Extra Strength Smoothies) 600 mg PO TID PRN dyspepsia 11/24/24 duloxetine 60 mg capsule,delayed release 60 mg PO DAILY 11/24/24 oxybutynin chloride 10 mg tablet,extended release 24 hr 10 mg PO DAILY 11/24/24 zinc gluconate 50 mg tablet 50 mg PO DAILY 11/24/24 amoxicillin 500 mg capsule 500 mg PO TID #14 caps 11/26/24 Hospital Course Operations None Procedures None Summary of Care Provided Minutes Spent on Discharge: 31 Hospital Course: This 59-year-old white female was seen in the emergency room at [facility] with complaints of diffuse abdominal pain worse in the lower quadrants. She describes abdominal pain is primarily cramping in nature. There is no vomiting or diarrhea. Patient's white count was 21,000, chemistry panel was remarkable for creatinine of 1.38, glucose was 265, patient's lactic acid was 3.5. Urinalysis was remarkable for +3 bacteria, there were 5-10 WBCs seen and 0- 5 RBCs seen. Patient's abdominal and pelvic CT showed a large amount of fecal material in the colon. Chest x-ray did not reveal any acute cardiopulmonary process. Patient was admitted to PCU, it was postulated that the patient's metformin was causing her elevated lactic acid, she was placed on IV antibiotics for suspected UTI and given laxatives. Her abdominal pain resolved with the bahai of her bowel movements, patient's white blood cell count declined to 15.5. On 11/26/2024, patient was seen and examined: On examination she appeared in good health and spirits, she does not appear to be in any distress. Vital signs as documented. Skin warm and dry and without overt rashes. Neck without JVD, thyroid appears normal, trachea is midline, neck is supple. Lungs clear, normal air movement was noted. Heart exam notable for regular rhythm, normal sounds and absence of murmurs, rubs or gallops. Abdomen unremarkable and without evidence of organomegaly, masses, or abdominal aortic enlargement, bowel sounds are present in all 4 quadrants, no abdominal tenderness was noted. Extremities nonedematous, no cyanosis was noted, no clubbing was noted. Neuro: Cranial nerves II through XII are grossly intact, no focal motor deficits were noted, sensation to light touch and pinprick is intact, motor exam 5/5 throughout. Psych: Patient is alert and oriented x3, she does not appear anxious or depressed, she does not appear agitated. Patient's urine culture grew out small numbers of strep agalactiae, patient was felt to be stable for discharge on 11/26/2024. Additional note: On 11/27/2024, I was alerted to the fact that the patient's blood culture was positive for gram-negative dania, I relayed this to the covering doctor for Dr. Ireland her PCP (Dr. Landaverde) and ask him to relay this to Dr. Ireland when he sees him on 11/28/2024. In the meantime, I have decided to (more content not included)...[facility] 11-24-2024 Evaluation note* Diagnosis Onset Date Resolution Status Admit Date Constipation acute October 3:12pm Leukocytosis acute October 3:12pm Abdominal pain inactive November 242024 3:12pm Constipation acute November 9:51am Metabolic dysfunction-associated steatotic liver disease (MASLD) acute December 15 025 9:51am [facility] Work Phone: 1(242) 560-560801-30-2025 Evaluation note* Diagnosis Onset Date Resolution Status Admit Date Constipation acute October 3:12pm Leukocytosis acute October 3:12pm Abdominal pain inactive November 242024 3:12pm Constipation acute November 9:51am Metabolic dysfunction-associated steatotic liver disease (MASLD) acute December 15 2 025 9:51am Obesity chronic January 03 3:03pm Obstructive sleep apnea on CPAP chronic January 03, 2025 3:03pm [facility] Work Phone: 1(701) 743-371911-25-2024 NotePap Smear Specimen AdequacyNov2023 3:30pmComment.Satisfactory for evaluation. Endocervical component may not bedistinguished in cases of atrophy.[facility] INTER[facility]ACED A#[id number] HospitalComment on above:Satisfactory for evaluation. Endocervical component may not bedistinguished in cases of atrophy.07-20-2024 History of Present illness Narrative* Nicole Cates MD, PhD - 07/20/2024 1:49 PM EDT Images from the original note were not included. [facility] Today's Date: 07/20/2024 Name: Jess Meeks : 1965 Purpose: Follow-up Patient Evaluation - This is an established patient, returning today for continued evaluation and management of the chief complaint noted below, SCS consult Chief complaint: neck pain, lower back pain Referring Clinician: Self Pertinent Past Medical History: Diabetes, uterine fibroids, GERD, HTN, DJD, KAVON on CPAP periodic limb movement disorder, myalgia, HL, Pertinent Past Surgeries: S/p lumbar spine fusion, s/p SCS implant (2013), s/p SCS battery [id number] Plan at last visit: Medications: - continue Gabapentin 600-900 QHS, Diclofenac 75mg BID vs Nabumetone 500mg every day prn, Flexeril 10mg TID, Duloxetine 60mg every day. Pt encouraged to wean NSAIDs as tolerated Interv al History: Overall pain and functional disability since last visit: Unchanged New Complaints since last visit: No Today, patient reports that she is healing well after her SCS battery exchange on 07/08/2024, with 3/10 pain at most currently that is well-controlled on Diclofenac 75 mg po BID. She initially used Oxycodone 5mg q6h for 2 days following SCS battery exchange, after which she weaned to her home medication regimen. She does report that she has had an acute flareup of pain in the lower back radiating down the posterior thigh to the level of the knee bilaterally which has responded to diclofenac. She is interested in considering CT/XR L-spine after she heals from her SCS battery exchange to see if she is a candidate for lumbar AJIT versus lumbar RFA She reports that when her SCS is working it provides close to 100% relief of her lower back and legsymptoms. Patient normally that she has close to 100% relief from her SCS system with regards to her lower back pain and bilateral L>R lateral thigh pain to the level of the knee. With regards to her neck pain, patient reports that she has had significant benefit from her cervical RFA however she reports that it is unclear what percentage is due to her NSAID therapy as she hascontinued to take Nabumetone 400mg every day vs Diclofenac 75mg po BID as these have relieved almost all of her neck pain in the past. Chi has ongoing relief from L-sided cervical RFA, with manageable pain relief since her last cRFA in July 2022. She deferred R-sided cervical RFA due to sig increase in pain after her L-sided cervical RFA procedure which improved over time, and manageable symptoms on the R-side. Recall: Patient was last seen on 06/17/[address] C-spine from 05/2020 showed multilevel degenerative changes with foraminal and central canal stenosis - most prominent over C6-7 level. She has had CESIs and left cervical facet RFAs in the past for treatment with >75% relief for ~8 months from prior RFAs. She also has a SCS in place for low back pain d/t post-laminectomy syndrome - implanted in 2013 Dr. Hernandez. She was further noted to have owngoing lower back pain with muscle spasms and occasional radicular leg pain. At that visit, plan was made to repeat a cervical RFA at C3/4, C4/5 and C5/6 on the left which she underwent on 09/17/21. She was further planned for SCS reprogramming to assess for benefit of new programming vs need for new IPG. Patient reports that she has close to 100% relief from her SCS system with regards to her lower back pain and bilateral L>R lateral thigh pain to the level of the knee. She had an acute flare in May in 2020 and presented to her PCP and was given a Toradol shot x2 with improvement for 4 days each time, and was continued for Nabumetone 500mg every day. She will have intermittent muscle spasmsthat is responsive to Flexeril, especially when she is doing strenious activity at work. With regards to her neck pain, patient reports that she has had significant benefit from her cervical RFA however she reports that it is unclear what percentage is due to her NSAID therapy as she hascontinued to take Nabumetone 400mg every day vs Diclofenac 75mg po BID as these have relieved almost all of her neck pain in the past. She is still only 2 weeks post RFA and states that she will await the 3-4 weeks before she trials being off NSAIDs to see if her repeat RFA has provided benefit. Furthermore, patient met with her SCS rep today who noted minimal charge burden of her IPG with hercurrent battery in good working order. She was provided additional programs but was most happy withher initial therapy. With regards to medications, patient is on Gabapentin 600-900 QHS, Diclofenac 75mg BID vs Nabumetone 500mg every day prn, Flexeril 10mg TID, Duloxetine 60mg every day PAIN DESCRIPTION: Timing: years Character: aching, sharp Primary location: lower back, neck L>R cervical paraspinal pain Radiation: L-spine: lateral and posterior thigh pain to the level of the knee C-spine: none Current pain level on NRS: 0/10 Current Pain Medications: Neuropathics: Cymbalta 60 mg daily, gabapentin 600-900 nightly NSAIDS: Diclofenac 75 mg twice daily v Muscle Relaxants: Flexeril 10 mg twice daily Topicals: Other Prescription or OTC Pain Medications: Opioids (when applicable): No question data found. Anti-depressants or Mood-Stabilizers: None Anti-Coagulants: None Therapies Attended (Current or Most Recent): No Current Therapies Treatment History: PAIN PROCEDURES: DATE PROCEDURE IMPROVEMENT 08/05/22 LEFT C3/4, C4/5 MB RFA 09/17/21 left C3/4, C4/5, C5/6 MB RFA 10/22/20 L C3, C4, C5 MB RFA 04/2020 C6-7 AJIT 09/2019 C6-7 AJIT Notabl e Events During Course of Treatment: History of Present Illness (HPI): Initial HPI DURATION AND ONSET: The pain complaint has been present for approximately >10 years. RED FLAG SYMPTOMS: denies red flags. Patient was last seen on 06/17/[address] C-spine from 05/2020 showed multilevel degenerative changes with foraminal and central canal stenosis - most prominent over C6-7 level. She has had CESIs and left cervical facet RFAs in the past for treatment with >75% relief for ~8 months from prior RFAs. She also has a SCS in place for low back pain d/t post-laminectomy syndrome - implanted [address] Hernandez. She was further noted to have owngoing lower back pain with muscle spasms and occasional radicular leg pain. At that visit, plan was made to repeat a cervical RFA at C3/4, C4/5 and C5/6 on the left which she underwent on 09/17/21. She was further planned for SCS reprogramming to assess for benefit of new programming vs need for new IPG. Today, patient reports that she has close to 100% relief from her SCS system with regards to her lower back pain and bilateral L>R lateral thigh pain to the level of the knee. She had an acute flare in May in 2020 and presented to her PCP and was given a Toradol shot x2 with improvement for 4days each time, and was continued for Nabumetone 500mg every day. She will have intermittent muscle spasms that is responsive to Flexeril, especially when she is doing strenious activity at work. With regards to her neck pain, patient reports that she has had significant benefit from her cervical RFA however she reports that it is unclear what percentage is due to her NSAID therapy as she hascontinued to take Nabumetone 400mg every day vs Diclofenac 75mg po BID as these have relieved almost all of her neck pain in the past. She is still only 2 weeks post RFA and states that she will await the 3-4 weeks before she trials being off NSAIDs to see if her repeat RFA has provided benefit. Furthermore, patient met with her SCS rep today who noted minimal charge burden of her IPG with hercurrent battery in good working order. She was provided additional programs but was most happy withher initial therapy. With regards to medications, patient is on Gabapentin 600-900 QHS, Diclofenac 75mg BID vs Nabumetone 500mg every day prn, Flexeril 10mg TID, Duloxetine 60mg every day Data Reviewed Today: Allergies: ALLERGIES Allergen Reactions Atorvastatin Myalgia Muscle aches; resolved after stopped statin Naproxen Hives Naproxyn [Naproxen] Hives Pravastatin Myalgia Did not tolerate Restasis [Cyclospor* Other: See Comments Burning and redness in the eyes Seasonal Allergies Other: See Comments Wellbutrin Xl [Bupr* Zoloft [Sertraline] Diarrhea Ibuprofen Rash Social History Tobacco Use Smoking status: Former Current packs/day: 0.00 Average packs/day: 1 pack/day for 20.0 years (20.0 ttl pk-yrs) Types: Cigarettes Start date: 1983 Quit date: 2003 Years since quittin.7 Smokeless tobacco: Never Vaping Use Vaping status: Never Used Substance Use Topics Alcohol use: Yes Comment: very rare wine Drug use: No 07/20/2024 07/20/2024 INTAKE PAIN ASSESSMENT Are you having pain associated with your visit today? Yes, Provider notified Yes, Provider notified Pain Scales Verbal (Numeric Rating or Visual Analog Scale) Pain Level 3 2 Pain Location Back-Lower Back-Lower Description Aching Aching;Dull Duration Units Minutes Years Frequency Intermittent Intermittent Intervention/Comfort measure Medication Medication Compliance: PDMP website checked and validated on 07/20/2024 by Nicole Cates MD, PhD All prescriptions have been APPROPRIATELY filled. No suspicious activity was identified. 2018 08/25/2019 10/01/2021 05/28/2022 12/23/2023 AG SPINE COMBINATION Questionnaire GREENLIGHT Completed Date 2018 Questionnaire Opiod Risk Tool Opiod Risk Tool Opiod Risk Tool Opiod Risk Tool Opiod Risk Tool Completed Date 2018 08/25/2019 10/01/2021 05/28/2022 12/23/2023 Comments 4 (All drug screens are appropriate unless indicated otherwise) Risk Assessment: BRANDIE-7: No data to display (0-4) minimal anxiety, (5-9) mild anxiety, (10-14) moderate anxiety, (15-21) severe anxiety PHQ-9: 01/07/2021 09/28/2021 08/08/2022 PHQ-9 Score 5 3 7 (0-4) minimal depression, (5-9) mild depression, (10-14) moderate depression, (15-19) moderately severe depression, (20-27) severe depression Diagnostic Studies: Relevant Imaging: MRI Spine Report MRI CERVICAL SPINE WO CONTRAST Collected: 02/22/2014 8:51 AM (Final result) Narrative: See Link below for Image XR T-spine 01/18/24: IMPRESSION: MULTILEVEL DEGENERATIVE DISC DISEASE OF THE THORACIC AND LUMBAR SPINE. DEXTROSCOLIOSIS OF LUMBAR SPINE. FUSION AT L5/S1 WITH LAMINECTOMY AT L5. DEXTROSCOLIOSIS OF THE LUMBAR SPINE. RESULTS: Counting reference: Anatomic Variant: None. The first rib-bearing vertebral bodies considered T1. L4-5 is considered the level of the iliac crest and assume there are 5 lumbar-type vertebrae. There are 12 thoracic and 5 lumbar vertebrae. Bones are osteopenic. Degenerative disc disease throughout the thoracic spine prominent thoracic kyphosis centered at T6. Vertebral bodies and pedicles are intact. There are neurostimulator wires present with the tips of these at the level of T7. Mild dextroscoliosis of the lumbar spine centered at L3. Status post L5/S1 interbody fusion and posterior pedicle screw and dania fixation with laminectomy at L5. Mild degenerative disc disease at L2/L3 and moderate to marked narrowing at L3/L4 and L4/L5 disc spaces. Facet degenerative changes at L2-L4. Battery pack for the neurostimulator wires is present is the right flank, the wires anteriorly at the T12/L1 level. XR C-spine 07/2018: IMPRESSION: DEGENERATIVE DISC AND FACET DISEASE UNCHANGED. SINCE THE PREVIOUS EXAM PROGRESSION OF LEFT NEUROFORAMINAL NARROWING SINCE THE PREVIOUS EXAM RESULTS: Counting reference: Craniocervical junction.. Straightening of normal cervical lordosis. Mild narrowing of C4/C5 and C5/C6 disc space, moderate narrowing at C6/C7 disc space. Osteophytes anteriorly at C4-C6 and uncovertebral osteophytes at C4-C7. Narrowing of facet joints. Mild neuroforaminal narrowing at C4/C5 and moderate neuroforaminal narrowing C5/C6 and C6/C7 on the left. Right neuroforamen are patent XR T-spine 2014: FINDINGS: Spinal cord stimulator leads are seen in the lower thoracic dorsal spinal canal. IMPRESSION: Spot imaging and fluoroscopy provided by radiology Electrodiagnostic Study (EMG): None Recent Labs: Creatinine Date Value Ref Range Status 03/07/2022 0.82 0.58 - 0.96 mg/dL Final eGFR Date Value Ref Range Status 04/07/2014 >60 >60mL/min/1.73m2 Final Comment: If the patient is , multiply the result by 1.210. Glucose, Point of Care Date Value Ref Range Status 07/08/2024 98 74 - 99 mg/dL Final Comment: Location:[facility], [address] [place] [address], [id number] The Accu-Chek Inform II glucose meter has not been approved for testing on patients receiving intensive medical intervention or therapy and results from this point of care glucose test should not be used for patient management decisions in these cases. Inaccurate results may also occur from other interfering factors, such as N-acetylcysteine (blood concentrations of greater than 5mg/dL), galactose, extremes of hematocrit (<10 or >65), or high doses of ascorbic acid (vitamin C) greater than 3mg/dL. Consider alternate testing mechanisms (e.g. core lab, blood gas instrument) in the above situations. Current Medications, Past Medical History, Past Surgical History, Family History, Social History and Review of Systems: On today's date, noted above, I have confirmed and edited as necessary, the PFSH and ROS obtained by others. Physical Exam: 07/20/24 1317 Pulse: 99 Resp: 16 SpO2: 97% Palpation: (-) Midline cervical thoracic/lumbosacral spine tenderness (+) Cervical and Lumbosacral paraspinal muscle tenderness (-) SIJ tenderness (-) piriformis muscle tenderness (-) Greater trochanter tenderness bilaterally ROM: Lumbar/Cervical spine: flexion, extension, side-bending, rotation all full and painless Manuevers: (-) SLR negative bilaterally (+) Facet loading (Carreon's Test) bilaterally (-) Conner's/FABERs negative bilaterally (-) Vishal Finger Test to SIJ negative on two attempts Cervical spine: (-) Spurling's negative bilaterally (-) L'Hermitte's sign negative. ROM Cervical spine: limited to 60 degrees to the left due to pain, otherwise rotation, extension and flexion of cervical spine smooth and painless. Muscles: muscle spasm, trigger points, atrophy, fasciculation not appreciated 5/5 strength in all upper and lower extremity myotomes. Gait normal. Heel and toe gait normal. Neuro: Reflexes: DTRs 2+ in biceps, triceps, brachialis, patellar and achilles bilaterally. Sensation: grossly intact to light touch in b/l UE and LE IMPRESSION: 58 year old female with a history of depression, diabetes, diffuse cystic mastopathy, fibroids, HTN, DJD, LBP, KAVON on CPAP, maylgai, cervicalgia, periodic limb movement disorder, HTN, HL,T2DM, lumbar spinal fusion c/b post- laminectomy syndrome c/b postlaminectomy syndrome s/p SCS implant s/p SCS battery exchange 06/2024 who presents regarding chronic neck and low back pain due to cervical spondylosis, as well as SCS battery exchange consultation. Patient has ongoing lower back and radicular leg symptoms due to multifactorial pathology includinglumbar spondylosis, lumbar radiculopathy in setting of known postlaminectomy syndrome. Her lower back pain is normally well-managed with medication and SCS therapy. With regards to patient's ongoing neck pain, patient has evidence of multifactorial pain due to cervical spondylosis (multilevel facet arthropathy noted on MRI C-spine, responsive to cervical RFA on the L side, R side deferred), as well as cervical neuroforaminal stenosis (multilevel NF stenosis upto mild in severity). Patient reports that she has minimal lower back and LE pain with use of her SCS system, which provides 100% relief of her symptoms. Due to the excellent relief that she had with her implanted system,she underwent SCS battery exchange on 07/08/2024 due to her battery being end-of-life, as her XR T/L-spine showed appropriate positioning of her SCS leads at the T7 level. Patient reports that she is healing well at the 2-week postoperative interval after SCS battery exchange on 07/08/2024. She continues to have intermittent lower back pain with radiation down the bilateral posterior thighs for which she was recommended to undergo CT L-spine after she heals from her SCS IPG exchange, as she may be a candidate for lumbar AJIT versus lumbar MBB/RFA Diagnoses: (Z96.89) S/P insertion of spinal cord stimulator (primary encounter diagnosis) (T85.192A) Malfunction of spinal cord stimulator, initial encounter ([facility]) (M47.812) Cervical spondylosis (G44.86) Cervicogenic headache (M47.816) Lumbar spondylosis (M47.816) Facet arthropathy, lumbar PLAN: Jess Meeks would benefit from the following to reach personal goals for decreasing pain,improving function and work participation, and/or improving quality of life: Medications: - continue Gabapentin 600-900 QHS, Diclofenac 75mg BID vs Nabumetone 500mg every day prn, Flexeril 10mg TID, Duloxetine 60mg every day. Pt encouraged to wean NSAIDs as tolerated Interventional Procedures: SCS reprogram with iKaaz Studies: None Functional Yarsanism: NONE Referrals: No additional considerations at present Follow-up: 2 weeks after SCS battery exchange Depending on response to the above plan, consider: Consider reinitiation and uptitration of gabapentin, CT versus MRI L-spine after SCS battery change(confirm if MRI conditional leads), lumbar MBB/RFA, lumbar AJIT Compliance and Clinic Policies Reviewed and/or Discussed Today: None Attribution: In addition to reviewing the information noted above, some elements copied from my most recent clinical note(s), including the physical exam (completed in entirety today), and the impression and plan sections, have been updated where appropriate. All reflect current medical decision making from today's date. Nicole Cates MD, PhD PhD Pain Management [facility] * Jules Sheffield MA - 07/20/2024 1:16 PM EDT Review of Systems Constitutional: Negative for activity change, chills, fever and unexpected weight change. Gastrointestinal: Negative for bowel retention or incontinence Genitourinary: Negative for difficulty urinating. Negative for bladder retention or incontinence Musculoskeletal: Positive for back pain. Negative for arthralgias, gait problem, joint swelling, myalgias, neck pain and neck stiffness. Neurological: Negative for weakness, numbness and headaches. Psychiatric/Behavioral: Negative for dysphoric mood, sleep disturbance and suicidal ideas. The patient is not nervous/anxious. [facility]* Addendum Note - Nicole Cates MD, PhD - 07/08/2024 7:04 PM EDTAddended by: NICOLE CATES on: 07/08/2024 07:04 PM Modules accepted: Orders [facility]-13[facility] Miscellaneous Notes* Addendum Note - Nciole Cates MD, PhD - 07/08/2024 7:04 PM EDTAddended by: NICOLE CATES on: 07/08/2024 07:04 PM Modules accepted: Orders * Addendum Note - Nicole Cates MD, PhD - 07/08/2024 4:12 PM EDTAddended by: NICOLE CATES on: 07/08/2024 04:12 PM Modules accepted: Orders * Telephone Encounter - Nicole Cates MD, PhD - 07/08/2024 3:52 PM EDT Orders for post-operative antibiotics and post-operative pain control sent to patients pharmacy on file for SCS battery exchange on 07/08/24. [facility] Note* Addendum Note - Nicole Cates MD, PhD - 07/08/2024 4:12 PM EDTAddended by: NICOLE CATES on: 07/08/2024 04:12 PM Modules accepted: Orders [facility] Telephone encounter Note* Telephone Encounter - Nicole Cates MD, PhD - 07/08/2024 3:52 PM EDT Orders for post-operative antibiotics and post-operative pain control sent to patients pharmacy on file for SCS battery exchange on 07/08/24. [facility]24 NoteHNO ID: [id number] Author: OLINDA QUEZADA RN Service: Nursing Author Type: Registered Nurse Type: Nursing Progress Note Filed: 07/08/2024 15:33 Note Text: Up to bathroomNorthern [facility]24 NoteHNO ID: [id number] Author: OLINDA QUEZADA RN Service: Nursing Author Type: Registered Nurse Type: Nursing Progress Note Filed: 07/08/2024 14:30 Note Text: IOD 45 minutesNorthern Light [facility] Telephone encounter Note* Telephone Encounter - Nicole Cates MD, PhD - 07/03/2024 10:12 PM EDT Order for mupirocin nasal ointment sent to patients pharmacy on file for nasal decolonization [facility] Miscellaneous Notes* Telephone Encounter - Nicole Cates MD, PhD - 07/03/2024 10:12 PM EDT Order for mupirocin nasal ointment sent to patients pharmacy on file for nasal decolonization documented [facility] History and physical note * Sofiya Horta APRN.SANDER [employer] - 07/01/2024 9:20 AM EDT Images from the original note were not included. [facility] HISTORY AND PHYSICAL EXAMINATION SERVICE DATE: 07/01/2024 SERVICE TIME: 9:46 AM PRIMARY CARE PHYSICIAN: Yung Valenzuela MD, MD Assessment Patient has the following medical conditions which may affect jose-operative course: Malfunction of spinal cord stimulator (HCC) Surgery scheduled with Dr. Cates on 07/08/2024 Pre-op examination Patient has the following medical conditions which may affect jose-operative course addressed in assessment and plan today. Mixed hyperlipidemia Statin, continue as prescribed Essential hypertension Controlled with lisinopril, instructed to hold morning of surgery KAVON on CPAP CPAP compliant Controlled type 2 diabetes mellitus without complication, without long-term current use of insulin (HCC) No recent A1C in Epic Metformin - Hold morning of surgery Peterson Activity Status Index: METS: Climb a flight of stairs or walk up a hill (5.50 METs) DASI Score: 5.5 Patient denies any chest pain or undue shortness of breath with the above physical activity. ARISCAT Score: Age: 51-80 Preoperative SpO2: >=96% Respiratory infection in the last month: No Preoperative anemia: No Surgical incision: peripheral Duration of surgery: 2-3 hrs Emergency procedure: No ARISCAT Score: 19 ANESTHESIA FINDINGS: Intubation History: No history of difficult intubation. No abnormal airway history Significant Anesthesia Considerations: none Airway History: No history of difficult airway No abnormal airway history I - PHYSICAL EVALUATION AIRWAY Patient intubated: No. DENTAL Dental findings: teeth intact. II - ANESTHESIA PLAN Anesthetic Plan: MAC Beta Taina Monitoring Plan Post Procedure Analgesic Plan Prepared for Surgery: CONSULTS: Patient does not require consults for optimization at this time Planned Anesthetic: MAC The Following Tests/Procedures Have Been Initiated: Orders Placed This Encounter [facility] AUREUS PCR Standing Status: Future Standing Expiration Date: 09/30/2024 REASON FOR VISIT: Jess Meeks is a 58 year old female who is scheduled for Procedure(s): INSRT OR RPLCMT SPINAL CORD NSTIM PULSE GENERATOR OR RECVER W/ POCKET CREATE CONNECT BTWN ELTRD ARRAY AND PULSE GENERATOR OR RECVR (Bilateral) at the request of Nicole Mcguire MD, PhD for routine H&P. My final recommendation will be communicated back to the requesting physician by way of shared medical record or letter. The reason for this visit is to perform a comprehensive review of the patient's past medical history, assess their current health status and obtain any additional testing required based on anesthesiaguidelines. We will also identify any potential anesthesia problems or contraindications to the planned procedure. Subjective The patient has the following: COVID-19 Immunization Status Overdue - Covid-19 Vaccine ( season) Overdue since 06/26/2024 08/23/2021 Imm Admin: COVID-19 original vaccine, age 12+ yr, monovalent (PFIZER- BIONTECH - PURPLE TOP) 01/24/2021 Imm Admin: COVID-19 original vaccine, age 12+ yr, monovalent (PFIZER- BIONTECH - PURPLE TOP) 01/03/2021 Imm Admin: COVID-19 original vaccine, age 12+ yr, monovalent (PFIZER- BIONTECH - PURPLE TOP) Only the first 3 history entries have been loaded, but more history exists. CHIEF COMPLAINT: Malfunction of spinal cord stimulator HPI: Patient is a 58 year old female here for a preoperative exam. Pt has a history of lumbar fusion in 1999, and SCS placed in 2013. Pt states that the SCS no longer holds a charge. Pt complains of low back pain 5/10 describes pain as ache, intermittent sharp, stabbing and muscle spasm. Radiates to left leg. No alleviating factors. Standing aggravates pain. Pt discussed with surgeon and agrees to surgical intervention. REVIEW OF SYSTEMS: General: Negative for: unintentional weight change, malaise and fever. Neurological: Negative for: headaches, seizures and strokes. Respiratory: Positive for: obstructive sleep apnea and CPAP/BiPAP compliant. Negative for: asthma, COPD, tobacco use and URI < 2 weeks. Cardiovascular: Positive for: hyperlipidemia and hypertension Negative for: arrhythmia, CAD, chest pain, CHF and DVT/PE. GI: Positive for: GERD Negative for: abdominal pain, nausea and vomiting. : Negative for: dysuria, hematuria and renal failure. 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 Endocrine: Positive for: diabetes mellitus. Patient's diabetes mellitus is controlled by diet and oral agents. Negative for: hyperthyroidism and hypothyroidism. Hematology: Negative for: anemia, factor V Leiden, von Willebrand disease and chronic anti-coagulation/plateletmeds. Oncology: No history of CA metastasis, chemo within 30 days, or radiotherapy within 90 days. No history of oncological symptoms or problems. Psych: Positive for: depression. Negative for: anxiety. Musculoskeletal: See HPI. Skin: Negative for lesions, rash and itching. PAST MEDICAL HISTORY 09/22/2006: DEPRESSIVE DISORDER NEC No date: Diabetes (HCC) No date: Diffuse cystic mastopathy No date: Excessive or frequent menstruation Comment: Heavy periods 04/14/2011: Fibroid uterus No date: GERD (gastroesophageal reflux disease) No date: HTN (hypertension) No date: JOINT DISEASE Comment: DEGENERATIVE No date: LBP (low back pain) No date: Narcolepsy No date: Ocular rosacea Comment: [place] No date: KAVON on CPAP Comment: Doing well on CPAP 05/2013: Rosacea PAST SURGICAL HISTORY 2003: CHOLECYSTECTOMY Comment: Cholecystectomy 09/03/2020: COLONOSCOPY Comment: repeat in [address] Rios 01/17/2015: COLONOSCOPY FLX DX W/COLLJ SPEC WHEN PFRMD Comment: Colonoscopy 07/18/2008: ENDOMETRIAL ABLTJ THERMAL W/O HYSTEROSCOPIC GUID Comment: Thermachoice III 2001: EXPLORATION OF SPINAL FUSION Comment: L5 laminectomy 06/22/2008: HYSTEROSCOPY, DIAGNOSTIC (SEPARATE Comment: Hysteroscopy/D&C No date: INSERT INTRAUTERINE DEVICE Comment: Mirena 2013: LAPS W/VAG HYSTERECT 250 GM/&RMVL TUBE&/OVARIES Comment: LAVH/BSO No date: LIG/TRNSXJ FLP TUBE ABDL/VAG APPR UNI/BI Comment: Tubal ligation 03/2014: PAST SURGICAL HISTORY OF Comment: Spinal cord stimulator implant 1990: PAST SURGICAL HISTORY OF; Left Comment: ganglion cyst No date: REMOVE INTRAUTERINE DEVICE Comment: Mirena 05/08/2011: SLING OPER STRES INCONTINENCE Comment: w/ cysto TVT-O 1980: TONSILLECTOMY PRIMARY/SECONDARY Comment: Tonsillectomy FAMILY HISTORY Problem Relation Age of Onset Diabetes Mother other (heart disease) Mother other (AICD valves) Mother Coronary Artery Disease Father 55 bypass, Aortic aneurysm Hypertension Father other (open heart) Father Cancer Sister HODGKINS Cancer Maternal Grandmother COLON CANCER No Known Problems Maternal Grandfather No Known Problems Paternal Grandmother No Known Problems Paternal Grandfather No Known Problems Daughter Breast Cancer Maternal Aunt Breast Cancer Maternal Aunt Social History Tobacco Use Smoking status: Former Current packs/day: 0.00 Average packs/day: 1 pack/day for 20.0 years (20.0 ttl pk-yrs) Types: Cigarettes Start date: 1983 Quit date: 2003 Years since quittin.6 Smokeless tobacco: Never Vaping Use Vaping status: Never Used Substance Use Topics Alcohol use: Yes Comment: very rare wine Drug use: No Prior to Admission medications as of 07/01/24 0922 Medication Sig Last Dose Taking acetaminophen (TYLENOL ARTHRITIS ORAL) Take by mouth as needed. Taking Yes Cetirizine 10 mg cap Take by mouth once daily. Taking Yes diclofenac, EC, (VOLTAREN) 75 mg EC tablet Take 1 tablet by mouth twice daily as needed (for pain.). Taking Yes cyclobenzaprine (FLEXERIL) 10 mg tablet Take 1 tablet by mouth three times daily as needed for muscle spasm. Taking Yes lisinopril (ZESTRIL, PRINIVIL) 20 mg tablet Take 20 mg by mouth once daily. Taking Yes metFORMIN ER (GLUCOPHAGE XR) 500 mg 24 hr tablet twice daily. Taking Yes loratadine (CLARITIN) 10 mg tablet Take 10 mg by mouth once daily. Taking Yes polyethylene glycol 3350 (MIRALAX, GLYCOLAX) 17 gram/dose powder Take by mouth once daily. Taking Yes Minocycline HCl 50 mg tablet TAKE 1 PILL DAILY FOR 10 DAYS ONLY DURING FLARES Taking Yes estradiol (ESTRACE) 0.01 % (0.1 mg/gram) vaginal cream APPLY A PEA SIZE AMOUNT OF CREAM TO FINGER AND LUBRICATE VAGINAL TISSUE 3 TIMES WEEKLY Taking Yes DULoxetine (CYMBALTA) 60 mg capsule Take 1 capsule by mouth once daily. Taking Yes rosuvastatin (CRESTOR) 5 mg tablet Take 1 tablet by mouth daily at bedtime. As directed Taking Yes oxybutynin ER (DITROPAN XL) 10 mg 24 hr tablet TAKE 1 TABLET BY MOUTH 1 TIME PER DAY SE WERE DISCUSSED INCLUDING DRY MOUTH AND CONSTIPATION Taking Yes Cholecalciferol, Vitamin D3, 2,000 unit cap Take 1 tablet by mouth twice daily. Taking Yes Multivitamin capsule Take 1 capsule by mouth once daily. Taking Yes ZINC ORAL Take by mouth as needed. Taking Yes Ibuprofen 200 mg ORAL Cap Take by mouth every 4 hours as needed. FOR PAIN. Taking Yes CPAP/BIPAP/OTHER Type .CPAPSettings into a note to see current settings/supplies/DME information. alqqbto-rxbbmrwxc-[id number] D3 500 mg-5 mcg (200 unit) per tablet Take 1 tablet by mouth twice daily with meals. Patient not taking: Reported on 07/01/2024 Not Taking Medication Comments documented by Anabelle Kim MA on 05/22/2016 at 1501. [place] ALLERGIES Allergen Reactions Atorvastatin Myalgia Muscle aches; resolved after stopped statin Naproxen Hives Naproxyn [Naproxen] Hives Pravastatin Myalgia Did not tolerate Restasis [Cyclospor* Other: See Comments Burning and redness in the eyes Seasonal Allergies Other: See Comments Wellbutrin Xl [Bupr* Zoloft [Sertraline] Diarrhea Ibuprofen Rash Objective PHYSICAL EXAM: General: alert and oriented, healthy appearance and obese. Pertinent negatives noted - not distressed. Skin: normal color, no rash or lesions. HEENT: No additional findings for patient's neck. Cardiovascular: regular rate and rhythm, normal S1 and S2, no rub, murmurs, or gallop. Respiratory: normal breath sounds, no wheezes or crackles. No chest wall deformity or tenderness. Abdomen: bowel sounds present and soft. Pertinent negatives noted - not tender. Extremities: no deformity, no edema or tenderness, no joint swelling or clubbing. Neurological: normal cognition and motor skills. Gait normal. No weakness or sensory deficit. PAIN ASSESSMENT: Pain Pain Level: 5 Pain Location: Back-Lower VITALS: BP 112/76 Pulse 71 Temp 98.2 Resp 16 Ht 5' 5 (1.65m) Wt 195 lb (88.5kg) SpO2 99% LMP03/30/2011 BMI 32.45 kg/(m^2). Diagnostic tests reviewed for today's visit: Lab Value Units Date High Low HB No results within date range. HCT No results within date range. WBC No results within date range. PLT No results within date range. NA No results within date range. K No results within date range. GLUC No results within date range. BUN No results within date range. CREAT No results within date range. PTSEC No results within date range. INR No results within date range. APTT No results within date range. ALT No results within date range. AST No results within date range. TBILI No results within date range. TSH No results within date range. Lab Value Units Date High Low HCGQT No results within date range. UHCG No results within date range. HCG, BODY* No results within date range. Lab Value Units Date High Low ABORHD No results within date range. ABSCREEN No results within date range. Hemoglobin A1C (%) Date Value 12/29/2019 6.7 11/18/2018 6.2 06/21/2018 6.0 08/31/2017 6.9 03/30/2017 6.7 10/03/2016 6.2 05/24/2016 6.5 Hemoglobin A1C (POCT) (%) Date Value 07/25/2019 6.6 No results found for this or any previous visit (from the past 8760 hour(s)). No results found for this or any previous visit (from the past 54182 hour(s)). Implantable Devices: SCS Denies blood thinners The Following Tests/Procedures Have Been Initiated: No orders per surgeon in Epic. MRSA ordered per BLANCA in PAT Pt has mupirocin from April Assessment/Plan Diagnosis: Malfunction of spinal cord stimulator, initial encounter ([facility]) [T85.192A] PLAN Planned Procedure: Procedure(s): INSRT OR RPLCMT SPINAL CORD NSTIM PULSE GENERATOR OR RECVER W/ POCKET CREATE CONNECT BTWN ELTRD ARRAY AND PULSE GENERATOR OR RECVR (Bilateral) Instructions Given to Patient: Instructions located in the after visit summary. Patient given verbal and written preop instructions and voices comprehension and compliance. I spent a total of 40 minutes on the date of the service which included preparing to see the patient, [id number] patient care, completing clinical documentation, obtaining and/or reviewing separately obtained history, performing a medically appropriate examination, and counseling and educating the patient/family/caregiver. SIGNATURE: Sofiya Horta APRN.CNP PATIENT NAME: Jess Meeks DATE: July 01, 2024 TIME: 9:42 AM PAGER/CONTACT #: [facility] History and physical note* Sofiya Horta APRN.CNP - 07/01/2024 9:20 AM EDT Images from the original note were not included. [place] [facility] HISTORY AND PHYSICAL EXAMINATION SERVICE DATE: 07/01/2024 SERVICE TIME: 9:46 AM PRIMARY CARE PHYSICIAN: Yung Valenzuela MD, MD Assessment Patient has the following medical conditions which may affect jose-operative course: Malfunction of spinal cord stimulator (HCC) Surgery scheduled with Dr. Cates on 07/08/2024 Pre-op examination Patient has the following medical conditions which may affect jose-operative course addressed in assessment and plan today. Mixed hyperlipidemia Statin, continue as prescribed Essential hypertension Controlled with lisinopril, instructed to hold morning of surgery KAVON on CPAP CPAP compliant Controlled type 2 diabetes mellitus without complication, without long-term current use of insulin ([facility]) No recent A1C in [facility] Metformin - Hold morning of surgery Peterson Activity Status Index: METS: Climb a flight of stairs or walk up a hill (5.50 METs) DASI Score: 5.5 Patient denies any chest pain or undue shortness of breath with the above physical activity. ARISCAT Score: Age: 51-80 Preoperative SpO2: >=96% Respiratory infection in the last month: No Preoperative anemia: No Surgical incision: peripheral Duration of surgery: 2-3 hrs Emergency procedure: No ARISCAT Score: 19 ANESTHESIA FINDINGS: Intubation History: No history of difficult intubation. No abnormal airway history Significant Anesthesia Considerations: none Airway History: No history of difficult airway No abnormal airway history I - PHYSICAL EVALUATION AIRWAY Patient intubated: No. DENTAL Dental findings: teeth intact. II - ANESTHESIA PLAN Anesthetic Plan: MAC Beta Taina Monitoring Plan Post Procedure Analgesic Plan Prepared for Surgery: CONSULTS: Patient does not require consults for optimization at this time Planned Anesthetic: MAC The Following Tests/Procedures Have Been Initiated: Orders Placed This Encounter [facility] PCR Standing Status: Future Standing Expiration Date: 09/30/2024 REASON FOR VISIT: Jess Meeks is a 58 year old female who is scheduled for Procedure(s): INSRT OR RPLCMT SPINAL CORD NSTIM PULSE GENERATOR OR RECVER W/ POCKET CREATE CONNECT BTWN ELTRD ARRAY AND PULSE GENERATOR OR RECVR (Bilateral) at the request of Nicole Mcguire MD, PhD for routine H&P. My final recommendation will be communicated back to the requesting physician by way of shared medical record or letter. The reason for this visit is to perform a comprehensive review of the patient's past medical history, assess their current health status and obtain any additional testing required based on anesthesiaguidelines. We will also identify any potential anesthesia problems or contraindications to the planned procedure. Subjective The patient has the following: COVID-19 Immunization Status Overdue - Covid-19 Vaccine () Overdue since 06/26/2024 08/23/2021 Imm Admin: COVID-19 original vaccine, age 12+ yr, monovalent (PFIZER- BIONTECH - PURPLE TOP) 01/24/2021 Imm Admin: COVID-19 original vaccine, age 12+ yr, monovalent (PFIZER- BIONTECH - PURPLE TOP) 01/03/2021 Imm Admin: COVID-19 original vaccine, age 12+ yr, monovalent (PFIZER- BIONTECH - PURPLE TOP) Only the first 3 history entries have been loaded, but more history exists. CHIEF COMPLAINT: Malfunction of spinal cord stimulator HPI: Patient is a 58 year old female here for a preoperative exam. Pt has a history of lumbar fusion in 1999, and SCS placed in 2013. Pt states that the SCS no longer holds a charge. Pt complains of low back pain 5/10 describes pain as ache, intermittent sharp, stabbing and muscle spasm. Radiates to left leg. No alleviating factors. Standing aggravates pain. Pt discussed with surgeon and agrees to surgical intervention. REVIEW OF SYSTEMS: General: Negative for: unintentional weight change, malaise and fever. Neurological: Negative for: headaches, seizures and strokes. Respiratory: Positive for: obstructive sleep apnea and CPAP/BiPAP compliant. Negative for: asthma, COPD, tobacco use and URI < 2 weeks. Cardiovascular: Positive for: hyperlipidemia and hypertension Negative for: arrhythmia, CAD, chest pain, CHF and DVT/PE. GI: Positive for: GERD Negative for: abdominal pain, nausea and vomiting. : Negative for: dysuria, hematuria and renal failure. 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 Endocrine: Positive for: diabetes mellitus. Patient's diabetes mellitus is controlled by diet and oral agents. Negative for: hyperthyroidism and hypothyroidism. Hematology: Negative for: anemia, factor V Leiden, von Willebrand disease and chronic anti-coagulation/plateletmeds. Oncology: No history of CA metastasis, chemo within 30 days, or radiotherapy within 90 days. No history of oncological symptoms or problems. Psych: Positive for: depression. Negative for: anxiety. Musculoskeletal: See HPI. Skin: Negative for lesions, rash and itching. PAST MEDICAL HISTORY 09/22/2006: DEPRESSIVE DISORDER NEC No date: Diabetes (HCC) No date: Diffuse cystic mastopathy No date: Excessive or frequent menstruation Comment: Heavy periods 04/14/2011: Fibroid uterus No date: GERD (gastroesophageal reflux disease) No date: HTN (hypertension) No date: JOINT DISEASE Comment: DEGENERATIVE No date: LBP (low back pain) No date: Narcolepsy No date: Ocular rosacea Comment: [place] No date: KAVON on CPAP Comment: Doing well on CPAP 05/2013: Rosacea PAST SURGICAL HISTORY 2003: CHOLECYSTECTOMY Comment: Cholecystectomy 09/03/2020: COLONOSCOPY Comment: repeat in [address] Rios 01/17/2015: COLONOSCOPY FLX DX W/COLLJ SPEC WHEN PFRMD Comment: Colonoscopy 07/18/2008: ENDOMETRIAL ABLTJ THERMAL W/O HYSTEROSCOPIC GUID Comment: Thermachoice III 2001: EXPLORATION OF SPINAL FUSION Comment: L5 laminectomy 06/22/2008: HYSTEROSCOPY, DIAGNOSTIC (SEPARATE Comment: Hysteroscopy/D&C No date: INSERT INTRAUTERINE DEVICE Comment: Mirena 2013: LAPS W/VAG HYSTERECT 250 GM/&RMVL TUBE&/OVARIES Comment: LAVH/BSO No date: LIG/TRNSXJ FLP TUBE ABDL/VAG APPR UNI/BI Comment: Tubal ligation 03/2014: PAST SURGICAL HISTORY OF Comment: Spinal cord stimulator implant 1989: PAST SURGICAL HISTORY OF; Left Comment: ganglion cyst No date: REMOVE INTRAUTERINE DEVICE Comment: Mirena 05/08/2011: SLING OPER STRES INCONTINENCE Comment: w/ cysto TVT-O 1980: TONSILLECTOMY PRIMARY/SECONDARY <AGE 12 Comment: Tonsillectomy FAMILY HISTORY Problem Relation Age of Onset Diabetes Mother other (heart disease) Mother other (AICD valves) Mother Coronary Artery Disease Father 55 bypass, Aortic aneurysm Hypertension Father other (open heart) Father Cancer Sister HODGKINS Cancer Maternal Grandmother COLON CANCER No Known Problems Maternal Grandfather No Known Problems Paternal Grandmother No Known Problems Paternal Grandfather No Known Problems Daughter Breast Cancer Maternal Aunt Breast Cancer Maternal Aunt Social History Tobacco Use Smoking status: Former Current packs/day: 0.00 Average packs/day: 1 pack/day for 20.0 years (20.0 ttl pk-yrs) Types: Cigarettes Start date: 1983 Quit date: 2003 Years since quittin.6 Smokeless tobacco: Never Vaping Use Vaping status: Never Used Substance Use Topics Alcohol use: Yes Comment: very rare wine Drug use: No Prior to Admission medications as of 07/01/24 0922 Medication Sig Last Dose Taking acetaminophen (TYLENOL ARTHRITIS ORAL) Take by mouth as needed. Taking Yes Cetirizine 10 mg cap Take by mouth once daily. Taking Yes diclofenac, EC, (VOLTAREN) 75 mg EC tablet Take 1 tablet by mouth twice daily as needed (for pain.). Taking Yes cyclobenzaprine (FLEXERIL) 10 mg tablet Take 1 tablet by mouth three times daily as needed for muscle spasm. Taking Yes lisinopril (ZESTRIL, PRINIVIL) 20 mg tablet Take 20 mg by mouth once daily. Taking Yes metFORMIN ER (GLUCOPHAGE XR) 500 mg 24 hr tablet twice daily. Taking Yes loratadine (CLARITIN) 10 mg tablet Take 10 mg by mouth once daily. Taking Yes polyethylene glycol 3350 (MIRALAX, GLYCOLAX) 17 gram/dose powder Take by mouth once daily. Taking Yes Minocycline HCl 50 mg tablet TAKE 1 PILL DAILY FOR 10 DAYS ONLY DURING FLARES Taking Yes estradiol (ESTRACE) 0.01 % (0.1 mg/gram) vaginal cream APPLY A PEA SIZE AMOUNT OF CREAM TO FINGER AND LUBRICATE VAGINAL TISSUE 3 TIMES WEEKLY Taking Yes DULoxetine (CYMBALTA) 60 mg capsule Take 1 capsule by mouth once daily. Taking Yes rosuvastatin (CRESTOR) 5 mg tablet Take 1 tablet by mouth daily at bedtime. As directed Taking Yes oxybutynin ER (DITROPAN XL) 10 mg 24 hr tablet TAKE 1 TABLET BY MOUTH 1 TIME PER DAY SE WERE DISCUSSED INCLUDING DRY MOUTH AND CONSTIPATION Taking Yes Cholecalciferol, Vitamin D3, 2,000 unit cap Take 1 tablet by mouth twice daily. Taking Yes Multivitamin capsule Take 1 capsule by mouth once daily. Taking Yes ZINC ORAL Take by mouth as needed. Taking Yes Ibuprofen 200 mg ORAL Cap Take by mouth every 4 hours as needed. FOR PAIN. Taking Yes CPAP/BIPAP/OTHER Type .CPAPSettings into a note to see current settings/supplies/DME information. [id number] D3 500 mg-5 mcg (200 unit) per tablet Take 1 tablet by mouth twice daily with meals. Patient not taking: Reported on 07/01/2024 Not Taking Medication Comments documented by Anabelle Kim MA on 05/22/2016 at 1501. [place] ALLERGIES Allergen Reactions Atorvastatin Myalgia Muscle aches; resolved after stopped statin Naproxen Hives Naproxyn [Naproxen] Hives Pravastatin Myalgia Did not tolerate Restasis [Cyclospor* Other: See Comments Burning and redness in the eyes Seasonal Allergies Other: See Comments Wellbutrin Xl [Bupr* Zoloft [Sertraline] Diarrhea Ibuprofen Rash Objective PHYSICAL EXAM: General: alert and oriented, healthy appearance and obese. Pertinent negatives noted - not distressed. Skin: normal color, no rash or lesions. HEENT: No additional findings for patient's neck. Cardiovascular: regular rate and rhythm, normal S1 and S2, no rub, murmurs, or gallop. Respiratory: normal breath sounds, no wheezes or crackles. No chest wall deformity or tenderness. Abdomen: bowel sounds present and soft. Pertinent negatives noted - not tender. Extremities: no deformity, no edema or tenderness, no joint swelling or clubbing. Neurological: normal cognition and motor skills. Gait normal. No weakness or sensory deficit. PAIN ASSESSMENT: Pain Pain Level: 5 Pain Location: Back-Lower VITALS: BP 112/76 Pulse 71 Temp 98.2 Resp 16 Ht 5' 5 (1.65m) Wt 195 lb (88.5kg) SpO2 99% LMP03/30/2011 BMI 32.45 kg/(m^2). Diagnostic tests reviewed for today's visit: Lab Value Units Date High Low HB No results within date range. HCT No results within date range. WBC No results within date range. PLT No results within date range. NA No results within date range. K No results within date range. GLUC No results within date range. BUN No results within date range. CREAT No results within date range. PTSEC No results within date range. INR No results within date range. APTT No results within date range. ALT No results within date range. AST No results within date range. TBILI No results within date range. TSH No results within date range. Lab Value Units Date High Low HCGQT No results within date range. UHCG No results within date range. HCG, BODY* No results within date range. Lab Value Units Date High Low ABORHD No results within date range. ABSCREEN No results within date range. Hemoglobin A1C (%) Date Value 12/29/2019 6.7 11/18/2018 6.2 06/21/2018 6.0 08/31/2017 6.9 03/30/2017 6.7 10/03/2016 6.2 05/24/2016 6.5 Hemoglobin A1C (POCT) (%) Date Value 07/25/2019 6.6 No results found for this or any previous visit (from the past 8760 hour(s)). No results found for this or any previous visit (from the past 85212 hour(s)). Implantable Devices: SCS Denies blood thinners The Following Tests/Procedures Have Been Initiated: No orders per surgeon in [facility]. MRSA ordered per BLANCA in PAT Pt has mupirocin from April Assessment/Plan Diagnosis: Malfunction of spinal cord stimulator, initial encounter ([facility]) [T85.192A] PLAN Planned Procedure: Procedure(s): INSRT OR RPLCMT SPINAL CORD NSTIM PULSE GENERATOR OR RECVER W/ POCKET CREATE CONNECT BTWN ELTRD ARRAY AND PULSE GENERATOR OR RECVR (Bilateral) Instructions Given to Patient: Instructions located in the after visit summary. Patient given verbal and written preop instructions and voices comprehension and compliance. I spent a total of 40 minutes on the date of the service which included preparing to see the patient, [id number] patient care, completing clinical documentation, obtaining and/or reviewing separately obtained history, performing a medically appropriate examination, and counseling and educating the patient/family/caregiver. SIGNATURE: Sofiya Horta APRN.CNP PATIENT NAME: Jess Meeks DATE: July 01, 2024 TIME: 9:42 AM PAGER/CONTACT #: [facility] Instructions* Patient Instructions* Sofiya Horta APRN.CNP - 06/30/2024 11:12 AM EDT PATIENT PREOPERATIVE INSTRUCTIONS Dr. Cates has scheduled you for your procedure at this surgery center: [facility]: [phone], [address] [address] Please read below carefully for your personalized instructions. SURGERY DATE: 07/08/2024 Your surgeon's office will provide you with your ARRIVAL TIME for surgery. -If you have not received an arrival time by the afternoon before your surgery date, please follow up with your surgeon's office. - If you are scheduled for Thursday surgery, please make sure you have your arrival time by Thursday afternoon. -Please be aware that emergency situations arise, which may delay or change your surgical time. If this happens, your surgeon's office will notify you as soon as possible and regret any inconvenience. Dietary Restrictions: - No solid food after midnight. - You may have 12 ounces of clear liquids (water, clear juices such as apple juice or gatorade, carbonated beverages, clear tea, black coffee, jello) until 2 hours before scheduled arrival at facility. This is important because if you do, your surgery may have to be cancelled Blood Thinning Medications: Stop NSAIDS. -DO NOT TAKE (Ibuprofen, Advil, Aleve, Motrin, Naproxen, Celebrex, Mobic, Voltaren, Diclofenac etc.) 7 days before surgery, or as directed by your surgeon. You may take Tylenol as an alternative. IF YOU TAKE ANY OF THE FOLLOWING BLOOD THINNERS, PLEASE CONTACT YOUR SURGEON AND THE PHYSICIAN WHO PRESCRIBES IT FOR YOU IN ORDER TO GET PERIOPERATIVE INSTRUCTIONS SOON POSSIBLE. BLOOD THINNERS: Aspirin, Coumadin, Plavix, Eliquis, Pradaxa, Xarelto, Lovenox, Brilinta, Effient, Savaysa, Arixtra, etc - Stop Vitamin E, fish oil, multivitamins, Marijuana, CBD oil and other over the counter herbals and dietary supplements 7 days before surgery. -This would not apply to cancer patients who are prescribed Marinol or any other prescription form on marijuana or CBD. Preoperative Instructions for Patients with Diabetes Mellitus: Please follow up with the provider that manages your diabetes and how to prepare you for surgery. Do not take the morning of surgery: Trajenta, Metformin, Actos/Pioglitazone and Amaryl/Glimepiride. For the following Medications, please HOLD 2 DAYS PRIOR TO SURGERY: Glucotrol/Glipizide, Januvia/Sitagliptin, Glyburide, Prandin/Repaglinide, Starlix/Nateglinide, Symlin/Pramlintide For the following Medications, please HOLD 3 DAYS PRIOR TO SURGERY: Canagliflozin/Invokana, Dapagliflozin/Farxiga ,Empagliflozin/Jardiance, Invokamet/canagliflozin and metformin, Xigduo XR/ dapagliglozin and metformin, Glyxambi/ empagliflozin and metformin, Syndardy/ empagliflozin and metformin For the following Medications, please HOLD 4 DAYS PRIOR TO SURGERY: Ertugliflozin/Steglatro For the following Medications, please HOLD 7 DAYS PRIOR TO SURGERY: GLP-1 AGONIST: Adlyxin (lixisenatide), Bydureon BCise (exenatide suspension), Byetta (exenatide), Mounjaro (tirzepatide), Ozempic (semaglutide injection), Rybelsus (semaglutide tablets), Tanzeum (albiglutide), Trulicity (dulaglutide), Victoza (liraglutide), Wegovy (semaglutide), Saxenda (liraglutide) Insulin Medication Instructions: Please follow up with the provider that manages your Insulin and how to prepare you for surgery. Medications: Hold MAURISIO inhibitors (Angiotensin-converting enzyme inhibitors) and Angiotensin II receptor blockers(ARBs) Day of surgery. Approved medications to take the morning of surgery with a sip of water: BP (except for MAURISIO inhibitors and ARBs), Heart, thyroid, psych, seizure, and pain medications excluding NSAIDS. Use inhalers as prescribed. Please bring inhalers day of surgery. Approved medications to take the morning of surgery with a sip of water: Pre-Surgery Med Instructions Medication Instructions acetaminophen (TYLENOL ARTHRITIS ORAL) Take morning of surgery with sip of water, no other fluids if needed Cetirizine 10 mg cap Continue until night before surgery diclofenac, EC, (VOLTAREN) 75 mg EC tablet Stop 7 days before surgery cyclobenzaprine (FLEXERIL) 10 mg tablet Continue until night before surgery lisinopril (ZESTRIL, PRINIVIL) 20 mg tablet Hold morning of surgery metFORMIN ER (GLUCOPHAGE XR) 500 mg 24 hr tablet Hold morning of surgery loratadine (CLARITIN) 10 mg tablet Continue until night before surgery polyethylene glycol 3350 (MIRALAX, GLYCOLAX) 17 gram/dose powder Continue until night before surgery Minocycline HCl 50 mg tablet Continue until night before surgery estradiol (ESTRACE) 0.01 % (0.1 mg/gram) vaginal cream Continue until night before surgery DULoxetine (CYMBALTA) 60 mg capsule Continue until night before surgery rosuvastatin (CRESTOR) 5 mg tablet Continue until night before surgery oxybutynin ER (DITROPAN XL) 10 mg 24 hr tablet Continue until night before surgery Cholecalciferol, Vitamin D3, 2,000 unit cap Continue until night before surgery Multivitamin capsule Stop 7 days before surgery ZINC ORAL Continue until night before surgery Ibuprofen 200 mg ORAL Cap Stop 7 days before surgery If you start any new medications after today's visit, please contact the surgeon's office. Important Reminders: -You need a responsible person to stay and wait for you at the hospital or surgery center during your procedure. - -If you are undergoing an outpatient procedure you must have someone drive you home and stay withyou for 24 hours. Your surgery may be cancelled if you do not have someone to drive you home or take care of you for 24 hours. -- If you have a stimulator, implant or pump that requires a remote please bring the remote with you the day of surgery. - Candy, mints, and tobacco products are NOT permitted the morning of surgery. - Hearing aids, dentures and glasses may be worn the morning of surgery. - NO jewelry, body piercings, makeup, hairpins or contacts are to be worn the day of surgery. -If you use CPAP/BIPAP, you can bring the machine with you the day of surgery. - If you are prescribed inhalers for breathing, continue using them AND bring them to the surgery center. -- Leave ALL valuables and money at home or with family members. -Oral hygiene and a shower or bath are required the evening before or the morning of surgery. - NO lotion, creams, powders or deodorants on the skin the day of surgery. -Wear loose, comfortable clothing that will accommodate bandages. -Your length of stay will be determined by your surgeon - You will need to have someone else (Family or friend) drive you home once discharged from the hospital. You are not allowed to drive yourself home after surgery. Your ride home must be at least 18 years old or older. - YOU MUST HAVE A RESPONSIBLE CLINICAL PHARMACY TECHNICIAN TO TAKE YOU HOME. A MANAGER [employer], CAB OR UBER CLINICAL PHARMACY TECHNICIAN CANNOT BE MADE A RESPONSIBLE CLINICAL PHARMACY TECHNICIAN. - You cannot stay in a hotel alone after outpatient surgery. You will not be permitted to have yoursurgery, if you do not have someone to take care of you. -It is recommended patients have a 72-hour period between getting their vaccine and date of surgery. If you develop symptoms such as a fever, cold, or flu, or have other changes to your health within TWO DAYS of scheduled surgery or the morning of surgery, please contact the surgery center above. Visitors to any [facility] facility: An individual who is sick should not visit. Visitors to patients with COVID-19 must follow these guidelines, which include wearing a mask, eye protection, gown and gloves. [facility]- Visitations are: Visitation hours are from 7 a.m. to 9 p.m. Pre- Surgery-Patients may have up to two visitors at a time. PACU-Patients may have up to 1-2 visitors at a time. Personal Belongings: -Please have your photo ID and insurance cards. -If you do not have a copy of advance directives on file with us, please bring a copy with you on the day of surgery. If you already have an Advance Directive, please fax a copy to [phone] or email to for it to be added to your chart. If you do not have an Advance Directive, you can find the appropriate form and more information at [email or web address]. We recommend that youcomplete the Advance Directive form found on the website and bring it with you the day of your surgery. It can be witnessed and scanned into your chart that day. [facility] Telephone encounter Note * Telephone Encounter - Shun Aaron - 06/22/2024 11:42 AM EDT Images from the original note were not included. [facility] Miscellaneous Notes* Telephone Encounter - Shun Aaron - 06/22/2024 11:42 AM EDT Images from the original note were not included. documented in this [facility] History and physical note * Sola Kincaid APRN.SANDER HAND - 04/29/2024 11:20 AM EDT Images from the original note were not included. [facility] HISTORY AND PHYSICAL EXAMINATION SERVICE DATE: 04/27/2024 SERVICE TIME: 12:03 PM PRIMARY CARE PHYSICIAN: No primary care provider on file. Assessment Patient has the following medical conditions which may affect jose-operative course: @OBESITYCLASS@ Pre-op examination Patient has the following medical conditions which may affect jose-operative course addressed in assessment and plan today. Malfunction of spinal cord stimulator (HCC) Surgery scheduled for 05/06/[address] Cates Essential hypertension Lisinopril do not take day of surgery Mixed hyperlipidemia Statin Okay to take day of surgery Controlled type 2 diabetes mellitus without complication, without long-term current use of insulin (HCC) Metformin do not take day of surgery Last A1c 6.28 December 2023 KAVON on CPAP Patient compliant with CPAP Peterson Activity Status Index: METS: Climb a flight of stairs or walk up a hill (5.50 METs) DASI Score: 5.5 Patient denies any chest pain or undue shortness of breath with the above physical activity. Clinical Frailty Scale: 2. Well ARISCAT Score: Age: 51-80 Preoperative SpO2: >=96% Respiratory infection in the last month: No Preoperative anemia: No Duration of surgery: 2-3 hrs Emergency procedure: No ARISCAT Score: ANESTHESIA FINDINGS: Intubation History: No history of difficult intubation Significant Anesthesia Considerations: none Airway History: No history of difficult airway I - PHYSICAL EVALUATION AIRWAY Patient intubated: No. DENTAL Dental findings: teeth intact. II - ANESTHESIA PLAN Anesthetic Plan: MAC Beta Taina Monitoring Plan Post Procedure Analgesic Plan Prepared for Surgery: . Patient states no optimizations requested by surgeon. CONSULTS: Planned Anesthetic: MAC The Following Tests/Procedures Have Been Initiated: Orders Placed This Encounter [facility] PCR Standing Status: Future Standing Expiration Date: 07/29/2024 mupirocin (BACTROBAN) 2 % ointment Sig: Use in the nose two times a day for 5 days. Apply 1/2 inch to each nostril with a Q-tip twice daily x 5 days. Start on 05/01/2024 Patient should start on May 01, 2024. Dispense: 22 g Refill: 0 REASON FOR VISIT: Jess Meeks is a 58 year old female who is scheduled for Procedure(s): INSRT OR RPLCMT SPINAL CORD NSTIM PULSE GENERATOR OR RECVER W/ POCKET CREATE CONNECT BTWN ELTRD ARRAY AND PULSE GENERATOR OR RECVR (Bilateral) at the request of Dr. Nicole Cates for routine H&P. My final recommendation will be communicated back to the requesting physician by way of shared medical record or letter. Subjective The patient has the following: ACTIVE PROBLEM LIST Mixed Hyperlipidemia Internal Hemorrhoids Without Mention of Complication Essential Hypertension Depressive Disorder, Not Elsewhere Classified Allergic Rhinitis Dysmenorrhea Postlaminectomy Syndrome, Lumbar Region Myalgia and Myositis, Unspecified Other Chronic Postoperative Pain Cervicalgia Ocular Rosacea Kavon On Cpap Dysmetabolic Syndrome Major Depressive Disorder, Single Episode, Moderate (Hcc) Controlled Type 2 Diabetes Mellitus Without Complication, Without Long-Term Current Use of Insulin (Hcc) Excessive Daytime Sleepiness Plmd (Periodic Limb Movement Disorder) Hypersomnia Degeneration of Intervertebral Disc of Lumbar Region Pre-Op Examination Malfunction of Spinal Cord Stimulator (Hcc) COVID-19 Immunization Status Overdue - Covid-19 Vaccine ( season) Overdue since 06/26/2023 08/23/2021 Imm Admin: COVID-19 original vaccine, age 12+ yr, monovalent (PFIZER- BIONTECH - PURPLE TOP) 01/24/2021 Imm Admin: COVID-19 original vaccine, age 12+ yr, monovalent (PFIZER- BIONTECH - PURPLE TOP) 01/03/2021 Imm Admin: COVID-19 original vaccine, age 12+ yr, monovalent (PFIZER- BIONTECH - PURPLE TOP) Only the first 3 history entries have been loaded, but more history exists. CHIEF COMPLAINT: The reason for this visit is to perform a comprehensive review of the patient's past medical history, assess their current health status and obtain any additional testing required based on anesthesia guidelines. We will also identify any potential anesthesia problems or contraindications to the planned procedure. HPI: The patient is a 58-year-old white female presenting to presurgical testing. Patient is statuspost lumbar spine fusion and a spinal cord stimulator implant in 2013. Patient states her battery does not charge very well at all for the past 1 year. She continues to have neck pain and lower back pain described as dull intermittently. After discussion with the surgeon the patient agrees to surgical intervention. REVIEW OF SYSTEMS: General: Negative for: unintentional weight change, malaise and fever. Neurological: Negative for: headaches, seizures and strokes. Respiratory: Positive for: obstructive sleep apnea and CPAP/BiPAP compliant. Negative for: asthma, COPD, pneumonia within 6 weeks and URI < 2 weeks. Cardiovascular: Positive for: hyperlipidemia and hypertension Negative for: atrial fibrillation, CAD, chest pain, CHF and DVT/PE. GI: Positive for: GERD Negative for: abdominal pain, nausea and vomiting. : Negative for: dysuria, hematuria and renal failure. 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 Endocrine: Positive for: diabetes mellitus. Patient's diabetes mellitus is controlled by oral agents. Negative for: hyperthyroidism and hypothyroidism. Hematology: Negative for: anemia, factor V Leiden and von Willebrand disease. Oncology: No history of CA metastasis, chemo within 30 days, or radiotherapy within 90 days. No history of oncological symptoms or problems. Psych: Positive for: depression. Negative for: anxiety. Musculoskeletal: See HPI. Positive for: back pain. Negative for: joint pain. Skin: Negative for lesions, rash and itching. PAST MEDICAL HISTORY Diagnosis Date DEPRESSIVE DISORDER NEC 09/22/2006 Diabetes (HCC) Diffuse cystic mastopathy Excessive or frequent menstruation Heavy periods Fibroid uterus 04/14/2011 GERD (gastroesophageal reflux disease) HTN (hypertension) JOINT DISEASE DEGENERATIVE LBP (low back pain) Narcolepsy Ocular rosacea Payton KAVON on CPAP Doing well on CPAP Rosacea 05/2013 PAST SURGICAL HISTORY Procedure Laterality Date CHOLECYSTECTOMY 2003 Cholecystectomy COLONOSCOPY 09/03/2020 repeat in [address] Rios COLONOSCOPY FLX DX W/COLLJ SPEC WHEN PFRMD 01/17/2015 Colonoscopy ENDOMETRIAL ABLTJ THERMAL W/O HYSTEROSCOPIC GUID 07/18/2008 Thermachoice III EXPLORATION OF SPINAL FUSION 2002 L5 laminectomy HYSTEROSCOPY, DIAGNOSTIC (SEPARATE 06/22/2008 Hysteroscopy/D&C INSERT INTRAUTERINE DEVICE Mirena LAPS W/VAG HYSTERECT 250 GM/&RMVL TUBE&/OVARIES 2013 LAVH/BSO LIG/TRNSXJ FLP TUBE ABDL/VAG APPR UNI/BI Tubal ligation PAST SURGICAL HISTORY OF 03/2014 Spinal cord stimulator implant PAST SURGICAL HISTORY OF Left 1990 ganglion cyst REMOVE INTRAUTERINE DEVICE Mirena SLING OPER STRES INCONTINENCE 05/08/2011 w/ cysto TVT-O TONSILLECTOMY PRIMARY/SECONDARY Tonsillectomy FAMILY HISTORY Problem Relation Age of Onset Diabetes Mother other (heart disease) Mother other (AICD valves) Mother Coronary Artery Disease Father 55 bypass, Aortic aneurysm Hypertension Father other (open heart) Father Cancer Sister HODGKINS Cancer Maternal Grandmother COLON CANCER No Known Problems Maternal Grandfather No Known Problems Paternal Grandmother No Known Problems Paternal Grandfather No Known Problems Daughter Breast Cancer Maternal Aunt Breast Cancer Maternal Aunt Social History Tobacco Use Smoking status: Former Packs/day: 1.00 Years: 20.00 Additional pack years: 0.00 Total pack years: 20.00 Types: Cigarettes Quit date: 2003 Years since quittin.5 Smokeless tobacco: Never Vaping Use Vaping Use: Never used Substance Use Topics Alcohol use: Yes Comment: very rare wine Drug use: No Prior to Admission medications as of 04/29/24 1131 Medication Sig Last Dose Taking CPAP/BIPAP/OTHER Type .CPAPSettings into a note to see current settings/supplies/DME information. Taking Yes Cetirizine 10 mg cap Take by mouth once daily. Taking Yes diclofenac, EC, (VOLTAREN) 75 mg EC tablet Take 1 tablet by mouth twice daily as needed (for pain.). Taking Yes cyclobenzaprine (FLEXERIL) 10 mg tablet Take 1 tablet by mouth three times daily as needed for muscle spasm. Taking Yes lisinopril (ZESTRIL, PRINIVIL) 20 mg tablet Take 20 mg by mouth once daily. Taking Yes metFORMIN ER (GLUCOPHAGE XR) 500 mg 24 hr tablet twice daily. Taking Yes loratadine (CLARITIN) 10 mg tablet Take 10 mg by mouth once daily. Taking Yes epruger-jcegnoomm-lobuysj D3 500 mg-5 mcg (200 unit) per tablet Take 1 tablet by mouth twice daily with meals. Taking Yes polyethylene glycol 3350 (MIRALAX, GLYCOLAX) 17 gram/dose powder Take by mouth once daily. Taking Yes Minocycline HCl 50 mg tablet TAKE 1 PILL DAILY FOR 10 DAYS ONLY DURING FLARES Taking Yes estradiol (ESTRACE) 0.01 % (0.1 mg/gram) vaginal cream APPLY A PEA SIZE AMOUNT OF CREAM TO FINGER AND LUBRICATE VAGINAL TISSUE 3 TIMES WEEKLY Taking Yes DULoxetine (CYMBALTA) 60 mg capsule Take 1 capsule by mouth once daily. Taking Yes rosuvastatin (CRESTOR) 5 mg tablet Take 1 tablet by mouth daily at bedtime. As directed Taking Yes oxybutynin ER (DITROPAN XL) 10 mg 24 hr tablet TAKE 1 TABLET BY MOUTH 1 TIME PER DAY SE WERE DISCUSSED INCLUDING DRY MOUTH AND CONSTIPATION Taking Yes Cholecalciferol, Vitamin D3, 2,000 unit cap Take 1 tablet by mouth twice daily. Taking Yes Multivitamin capsule Take 1 capsule by mouth once daily. Taking Yes ZINC ORAL Take by mouth as needed. Taking Yes Ibuprofen 200 mg ORAL Cap Take by mouth every 4 hours as needed. FOR PAIN. Taking Yes mupirocin (BACTROBAN) 2 % ointment Use in the nose two times a day for 5 days. Apply 1/2 inch to each nostril with a Q-tip twice daily x 5 days. Start on 05/01/2024 Patient should start on May 01, 2024. Medication Comments documented by Anabelle Kim MA on 05/22/2016 at 1501. [facility] ALLERGIES Allergen Reactions Atorvastatin Myalgia Muscle aches; resolved after stopped statin Naproxen Hives Naproxyn [Naproxen] Hives Pravastatin Myalgia Did not tolerate Restasis [Cyclospor* Other: See Comments Burning and redness in the eyes Seasonal Allergies Other: See Comments Wellbutrin Xl [Bupr* Zoloft [Sertraline] Diarrhea Ibuprofen Rash Objective PHYSICAL EXAM: General: alert and oriented and healthy appearance. Pertinent negatives noted - not distressed. Skin: normal color, no rash or lesions. HEENT: pupils equal round. Cardiovascular: regular rate and rhythm, normal S1 and S2, no rub, murmurs, or gallop. Respiratory: normal breath sounds, no wheezes or crackles. No chest wall deformity or tenderness. Abdomen: bowel sounds present. Extremities: no deformity, no edema or tenderness, no joint swelling or clubbing. Neurological: normal cognition and motor skills. Gait normal. No weakness or sensory deficit. PAIN ASSESSMENT: Pain Pain Level: 0 VITALS: BP 116/79 Pulse 62 Temp 98.1 Resp 16 Ht 5' 5 (1.65m) Wt 189 lb (85.7kg) SpO2 97% LMP03/30/2011 BMI 31.45 kg/(m^2). Diagnostic tests reviewed for today's visit: Lab Value Units Date High Low HB No results within date range. HCT No results within date range. WBC No results within date range. PLT No results within date range. NA No results within date range. K No results within date range. GLUC No results within date range. BUN No results within date range. CREAT No results within date range. PTSEC No results within date range. INR No results within date range. APTT No results within date range. ALT No results within date range. AST No results within date range. TBILI No results within date range. TSH No results within date range. Lab Value Units Date High Low HCGQT No results within date range. UHCG No results within date range. HCG, BODY* No results within date range. Lab Value Units Date High Low ABORHD No results within date range. ABSCREEN No results within date range. Hemoglobin A1C (%) Date Value 12/29/2019 6.7 11/18/2018 6.2 06/21/2018 6.0 08/31/2017 6.9 03/30/2017 6.7 10/03/2016 6.2 05/24/2016 6.5 Hemoglobin A1C (POCT) (%) Date Value 07/25/2019 6.6 No results found for this or any previous visit (from the past 8760 hour(s)). No results found for this or any previous visit (from the past 09016 hour(s)). Surgical scrub given day of PST. Mupirocin script sent to pharmacy and instructions given to patient. 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 ordered MRSA and mupirocin Assessment/Plan Diagnosis: Malfunction of spinal cord stimulator, initial encounter (HCC) [T85.192A] PLAN Planned Procedure: Procedure(s): INSRT OR RPLCMT SPINAL CORD NSTIM PULSE GENERATOR OR RECVER W/ POCKET CREATE CONNECT BTWN ELTRD ARRAY AND PULSE GENERATOR OR RECVR (Bilateral) I spent a total of 40 minutes on the date of the service which included preparing to see the patient, [id number] patient care, completing clinical documentation, obtaining and/or reviewing separately obtained history, performing a medically appropriate examination, counseling and educating the pat ient/family/caregiver, and ordering medications, tests, or procedures. Instructions Given to Patient: Instructions located in the after visit summary. Patient given verbal and written preop instructions and voices comprehension and compliance. SIGNATURE: Sola Kincaid APRN.CNP PATIENT NAME: Jess Meeks DATE: April 27, 2024 TIME: 5:24 PM PAGER/CONTACT #: [email or web address] History and physical note* Sola Kincaid APRN.CNP - 04/29/2024 11:20 AM EDT Images from the original note were not included. [facility] HISTORY AND PHYSICAL EXAMINATION SERVICE DATE: 04/27/2024 SERVICE TIME: 12:03 PM PRIMARY CARE PHYSICIAN: No primary care provider on file. Assessment Patient has the following medical conditions which may affect jose-operative course: @OBESITYCLASS@ Pre-op examination Patient has the following medical conditions which may affect jose-operative course addressed in assessment and plan today. Malfunction of spinal cord stimulator (HCC) Surgery scheduled for 05/06/[address] Cates Essential hypertension Lisinopril do not take day of surgery Mixed hyperlipidemia Statin Okay to take day of surgery Controlled type 2 diabetes mellitus without complication, without long-term current use of insulin (HCC) Metformin do not take day of surgery Last A1c 6.28 December 2023 KAVON on CPAP Patient compliant with CPAP Peterson Activity Status Index: METS: Climb a flight of stairs or walk up a hill (5.50 METs) DASI Score: 5.5 Patient denies any chest pain or undue shortness of breath with the above physical activity. Clinical Frailty Scale: 2. Well ARISCAT Score: Age: 51-80 Preoperative SpO2: >=96% Respiratory infection in the last month: No Preoperative anemia: No Duration of surgery: 2-3 hrs Emergency procedure: No ARISCAT Score: ANESTHESIA FINDINGS: Intubation History: No history of difficult intubation Significant Anesthesia Considerations: none Airway History: No history of difficult airway I - PHYSICAL EVALUATION AIRWAY Patient intubated: No. DENTAL Dental findings: teeth intact. II - ANESTHESIA PLAN Anesthetic Plan: MAC Beta Taina Monitoring Plan Post Procedure Analgesic Plan Prepared for Surgery: . Patient states no optimizations requested by surgeon. CONSULTS: Planned Anesthetic: MAC The Following Tests/Procedures Have Been Initiated: Orders Placed This Encounter [facility] PCR Standing Status: Future Standing Expiration Date: 07/29/2024 mupirocin (BACTROBAN) 2 % ointment Sig: Use in the nose two times a day for 5 days. Apply 1/2 inch to each nostril with a Q-tip twice daily x 5 days. Start on 05/01/2024 Patient should start on May 01, 2024. Dispense: 22 g Refill: 0 REASON FOR VISIT: Jess Meeks is a 58 year old female who is scheduled for Procedure(s): INSRT OR RPLCMT SPINAL CORD NSTIM PULSE GENERATOR OR RECVER W/ POCKET CREATE CONNECT BTWN ELTRD ARRAY AND PULSE GENERATOR OR RECVR (Bilateral) at the request of Dr. Nicole Cates for routine H&P. My final recommendation will be communicated back to the requesting physician by way of shared medical record or letter. Subjective The patient has the following: ACTIVE PROBLEM LIST Mixed Hyperlipidemia Internal Hemorrhoids Without Mention of Complication Essential Hypertension Depressive Disorder, Not Elsewhere Classified Allergic Rhinitis Dysmenorrhea Postlaminectomy Syndrome, Lumbar Region Myalgia and Myositis, Unspecified Other Chronic Postoperative Pain Cervicalgia Ocular Rosacea Kavon On Cpap Dysmetabolic Syndrome Major Depressive Disorder, Single Episode, Moderate (Hcc) Controlled Type 2 Diabetes Mellitus Without Complication, Without Long-Term Current Use of Insulin (Hcc) Excessive Daytime Sleepiness Plmd (Periodic Limb Movement Disorder) Hypersomnia Degeneration of Intervertebral Disc of Lumbar Region Pre-Op Examination Malfunction of Spinal Cord Stimulator (Hcc) COVID-19 Immunization Status Overdue - Covid-19 Vaccine () Overdue since 06/26/2023 08/23/2021 Imm Admin: COVID-19 original vaccine, age 12+ yr, monovalent (PFIZER- BIONTECH - PURPLE TOP) 01/24/2021 Imm Admin: COVID-19 original vaccine, age 12+ yr, monovalent (PFIZER- BIONTECH - PURPLE TOP) 01/03/2021 Imm Admin: COVID-19 original vaccine, age 12+ yr, monovalent (PFIZER- BIONTECH - PURPLE TOP) Only the first 3 history entries have been loaded, but more history exists. CHIEF COMPLAINT: The reason for this visit is to perform a comprehensive review of the patient's past medical history, assess their current health status and obtain any additional testing required based on anesthesia guidelines. We will also identify any potential anesthesia problems or contraindications to the planned procedure. HPI: The patient is a 58-year-old white female presenting to presurgical testing. Patient is statuspost lumbar spine fusion and a spinal cord stimulator implant in 2013. Patient states her battery does not charge very well at all for the past 1 year. She continues to have neck pain and lower back pain described as dull intermittently. After discussion with the surgeon the patient agrees to surgical intervention. REVIEW OF SYSTEMS: General: Negative for: unintentional weight change, malaise and fever. Neurological: Negative for: headaches, seizures and strokes. Respiratory: Positive for: obstructive sleep apnea and CPAP/BiPAP compliant. Negative for: asthma, COPD, pneumonia within 6 weeks and URI < 2 weeks. Cardiovascular: Positive for: hyperlipidemia and hypertension Negative for: atrial fibrillation, CAD, chest pain, CHF and DVT/PE. GI: Positive for: GERD Negative for: abdominal pain, nausea and vomiting. : Negative for: dysuria, hematuria and renal failure. 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 Endocrine: Positive for: diabetes mellitus. Patient's diabetes mellitus is controlled by oral agents. Negative for: hyperthyroidism and hypothyroidism. Hematology: Negative for: anemia, factor V Leiden and von Willebrand disease. Oncology: No history of CA metastasis, chemo within 30 days, or radiotherapy within 90 days. No history of oncological symptoms or problems. Psych: Positive for: depression. Negative for: anxiety. Musculoskeletal: See HPI. Positive for: back pain. Negative for: joint pain. Skin: Negative for lesions, rash and itching. PAST MEDICAL HISTORY Diagnosis Date DEPRESSIVE DISORDER NEC 09/22/2006 Diabetes (HCC) Diffuse cystic mastopathy Excessive or frequent menstruation Heavy periods Fibroid uterus 04/14/2011 GERD (gastroesophageal reflux disease) HTN (hypertension) JOINT DISEASE DEGENERATIVE LBP (low back pain) Narcolepsy Ocular rosacea Payton KAVON on CPAP Doing well on CPAP Rosacea 05/2013 PAST SURGICAL HISTORY Procedure Laterality Date CHOLECYSTECTOMY 2003 Cholecystectomy COLONOSCOPY 09/03/2020 repeat in [address] Rios COLONOSCOPY FLX DX W/COLLJ SPEC WHEN PFRMD 01/17/2015 Colonoscopy ENDOMETRIAL ABLTJ THERMAL W/O HYSTEROSCOPIC GUID 07/18/2008 Thermachoice III EXPLORATION OF SPINAL FUSION 2002 L5 laminectomy HYSTEROSCOPY, DIAGNOSTIC (SEPARATE 06/22/2008 Hysteroscopy/D&C INSERT INTRAUTERINE DEVICE Mirena LAPS W/VAG HYSTERECT 250 GM/&RMVL TUBE&/OVARIES 2013 LAVH/BSO LIG/TRNSXJ FLP TUBE ABDL/VAG APPR UNI/BI Tubal ligation PAST SURGICAL HISTORY OF 03/2014 Spinal cord stimulator implant PAST SURGICAL HISTORY OF Left 1990 ganglion cyst REMOVE INTRAUTERINE DEVICE Mirena SLING OPER STRES INCONTINENCE 05/08/2011 w/ cysto TVT-O TONSILLECTOMY PRIMARY/SECONDARY <AGE 12 1981 Tonsillectomy FAMILY HISTORY Problem Relation Age of Onset Diabetes Mother other (heart disease) Mother other (AICD valves) Mother Coronary Artery Disease Father 55 bypass, Aortic aneurysm Hypertension Father other (open heart) Father Cancer Sister HODGKINS Cancer Maternal Grandmother COLON CANCER No Known Problems Maternal Grandfather No Known Problems Paternal Grandmother No Known Problems Paternal Grandfather No Known Problems Daughter Breast Cancer Maternal Aunt Breast Cancer Maternal Aunt Social History Tobacco Use Smoking status: Former Packs/day: 1.00 Years: 20.00 Additional pack years: 0.00 Total pack years: 20.00 Types: Cigarettes Quit date: 2003 Years since quittin.5 Smokeless tobacco: Never Vaping Use Vaping Use: Never used Substance Use Topics Alcohol use: Yes Comment: very rare wine Drug use: No Prior to Admission medications as of 04/29/24 1131 Medication Sig Last Dose Taking CPAP/BIPAP/OTHER Type .CPAPSettings into a note to see current settings/supplies/DME information. Taking Yes Cetirizine 10 mg cap Take by mouth once daily. Taking Yes diclofenac, EC, (VOLTAREN) 75 mg EC tablet Take 1 tablet by mouth twice daily as needed (for pain.). Taking Yes cyclobenzaprine (FLEXERIL) 10 mg tablet Take 1 tablet by mouth three times daily as needed for muscle spasm. Taking Yes lisinopril (ZESTRIL, PRINIVIL) 20 mg tablet Take 20 mg by mouth once daily. Taking Yes metFORMIN ER (GLUCOPHAGE XR) 500 mg 24 hr tablet twice daily. Taking Yes loratadine (CLARITIN) 10 mg tablet Take 10 mg by mouth once daily. Taking Yes woeevrw-mzcvnmlcd-fvmddxj D3 500 mg-5 mcg (200 unit) per tablet Take 1 tablet by mouth twice daily with meals. Taking Yes polyethylene glycol 3350 (MIRALAX, GLYCOLAX) 17 gram/dose powder Take by mouth once daily. Taking Yes Minocycline HCl 50 mg tablet TAKE 1 PILL DAILY FOR 10 DAYS ONLY DURING FLARES Taking Yes estradiol (ESTRACE) 0.01 % (0.1 mg/gram) vaginal cream APPLY A PEA SIZE AMOUNT OF CREAM TO FINGER AND LUBRICATE VAGINAL TISSUE 3 TIMES WEEKLY Taking Yes DULoxetine (CYMBALTA) 60 mg capsule Take 1 capsule by mouth once daily. Taking Yes rosuvastatin (CRESTOR) 5 mg tablet Take 1 tablet by mouth daily at bedtime. As directed Taking Yes oxybutynin ER (DITROPAN XL) 10 mg 24 hr tablet TAKE 1 TABLET BY MOUTH 1 TIME PER DAY SE WERE DISCUSSED INCLUDING DRY MOUTH AND CONSTIPATION Taking Yes Cholecalciferol, Vitamin D3, 2,000 unit cap Take 1 tablet by mouth twice daily. Taking Yes Multivitamin capsule Take 1 capsule by mouth once daily. Taking Yes ZINC ORAL Take by mouth as needed. Taking Yes Ibuprofen 200 mg ORAL Cap Take by mouth every 4 hours as needed. FOR PAIN. Taking Yes mupirocin (BACTROBAN) 2 % ointment Use in the nose two times a day for 5 days. Apply 1/2 inch to each nostril with a Q-tip twice daily x 5 days. Start on 05/01/2024 Patient should start on May 01, 2024. Medication Comments documented by Anabelle Kim MA on 05/22/2016 at 1501. [facility] ALLERGIES Allergen Reactions Atorvastatin Myalgia Muscle aches; resolved after stopped statin Naproxen Hives Naproxyn [Naproxen] Hives Pravastatin Myalgia Did not tolerate Restasis [Cyclospor* Other: See Comments Burning and redness in the eyes Seasonal Allergies Other: See Comments Wellbutrin Xl [Bupr* Zoloft [Sertraline] Diarrhea Ibuprofen Rash Objective PHYSICAL EXAM: General: alert and oriented and healthy appearance. Pertinent negatives noted - not distressed. Skin: normal color, no rash or lesions. HEENT: pupils equal round. Cardiovascular: regular rate and rhythm, normal S1 and S2, no rub, murmurs, or gallop. Respiratory: normal breath sounds, no wheezes or crackles. No chest wall deformity or tenderness. Abdomen: bowel sounds present. Extremities: no deformity, no edema or tenderness, no joint swelling or clubbing. Neurological: normal cognition and motor skills. Gait normal. No weakness or sensory deficit. PAIN ASSESSMENT: Pain Pain Level: 0 VITALS: BP 116/79 Pulse 62 Temp 98.1 Resp 16 Ht 5' 5 (1.65m) Wt 189 lb (85.7kg) SpO2 97% LMP03/30/2011 BMI 31.45 kg/(m^2). Diagnostic tests reviewed for today's visit: Lab Value Units Date High Low HB No results within date range. HCT No results within date range. WBC No results within date range. PLT No results within date range. NA No results within date range. K No results within date range. GLUC No results within date range. BUN No results within date range. CREAT No results within date range. PTSEC No results within date range. INR No results within date range. APTT No results within date range. ALT No results within date range. AST No results within date range. TBILI No results within date range. TSH No results within date range. Lab Value Units Date High Low HCGQT No results within date range. UHCG No results within date range. HCG, BODY* No results within date range. Lab Value Units Date High Low ABORHD No results within date range. ABSCREEN No results within date range. Hemoglobin A1C (%) Date Value 12/29/2019 6.7 11/18/2018 6.2 06/21/2018 6.0 08/31/2017 6.9 03/30/2017 6.7 10/03/2016 6.2 05/24/2016 6.5 Hemoglobin A1C (POCT) (%) Date Value 07/25/2019 6.6 No results found for this or any previous visit (from the past 8760 hour(s)). No results found for this or any previous visit (from the past 83624 hour(s)). Surgical scrub given day of PST. Mupirocin script sent to pharmacy and instructions given to patient. 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 ordered MRSA and mupirocin Assessment/Plan Diagnosis: Malfunction of spinal cord stimulator, initial encounter (HCC) [T85.192A] PLAN Planned Procedure: Procedure(s): INSRT OR RPLCMT SPINAL CORD NSTIM PULSE GENERATOR OR RECVER W/ POCKET CREATE CONNECT BTWN ELTRD ARRAY AND PULSE GENERATOR OR RECVR (Bilateral) I spent a total of 40 minutes on the date of the service which included preparing to see the patient, [id number] patient care, completing clinical documentation, obtaining and/or reviewing separately obtained history, performing a medically appropriate examination, counseling and educating the pat ient/family/caregiver, and ordering medications, tests, or procedures. Instructions Given to Patient: Instructions located in the after visit summary. Patient given verbal and written preop instructions and voices comprehension and compliance. SIGNATURE: Sola Kincaid APRN.CNP PATIENT NAME: Jess Meeks DATE: April 27, 2024 TIME: 5:24 PM PAGER/CONTACT #: [facility] Instructions* Patient Instructions* Sola Kincaid APRN.CNP - 04/27/2024 5:27 PM EDT PATIENT PREOPERATIVE INSTRUCTIONS Nicole Cates MD has scheduled you for your procedure at this surgery center: [facility]: [phone], [address] [id number] Please read below carefully for your personalized instructions. Date of Surgery: 05/06/2024 Arrival Time for Surgery: Your surgeon's office will provide you with your arrival time for surgery if they have not done so already. If you do not have your arrival time for surgery by the afternoon the day before your surgery you can call the surgeon's office. If you are scheduled for a Thursday surgery you can call the Thursday before. - Please be aware that emergency situations arise, which may delay or change your surgical time. Ifthis happens, your surgeon's office will notify you as soon as possible and regret any inconvenience. Dietary Restrictions: - No solid food after midnight. - You may have 12 ounces of clear liquids (water, clear juices such as apple juice or gatorade, carbonated beverages, clear tea, black coffee, jello) until 2 hours before scheduled arrival at facility. Medications: Pre-Surgery Med Instructions Medication Instructions CPAP/BIPAP/OTHER As usual Cetirizine 10 mg cap Take morning of surgery with sip of water, no other fluids diclofenac, EC, (VOLTAREN) 75 mg EC tablet Stop 7 days before surgery cyclobenzaprine (FLEXERIL) 10 mg tablet Continue until night before surgery lisinopril (ZESTRIL, PRINIVIL) 20 mg tablet Continue until night before surgery metFORMIN ER (GLUCOPHAGE XR) 500 mg 24 hr tablet Continue until night before surgery loratadine (CLARITIN) 10 mg tablet Take morning of surgery with sip of water, no other fluids zwcjlaq-hnzrezwjw-kxwookb D3 500 mg-5 mcg (200 unit) per tablet Take morning of surgery with sip ofwater, no other fluids polyethylene glycol 3350 (MIRALAX, GLYCOLAX) 17 gram/dose powder Continue until night before surgery Minocycline HCl 50 mg tablet Continue until night before surgery estradiol (ESTRACE) 0.01 % (0.1 mg/gram) vaginal cream Continue until night before surgery DULoxetine (CYMBALTA) 60 mg capsule Take morning of surgery with sip of water, no other fluids rosuvastatin (CRESTOR) 5 mg tablet Take morning of surgery with sip of water, no other fluids oxybutynin ER (DITROPAN XL) 10 mg 24 hr tablet Take morning of surgery with sip of water, no other fluids Cholecalciferol, Vitamin D3, 2,000 unit cap Take morning of surgery with sip of water, no other fluids Multivitamin capsule Stop 7 days before surgery ZINC ORAL Continue until night before surgery Ibuprofen 200 mg ORAL Cap Stop 7 days before surgery Blood pressure medications See med list for instructions Take beta taina day of surgery Do not take MAURISIO or ARB medications day of surgery Weight loss medications Sympathomimetics such as Adipex-P (Phentermine): Stop 4 days before surgery. Contrave (Naltrexone/Bupropion) Hold 2-3 days. Qsymia (Phentermine/Topiramate - Please contact your prescribing provider for Pre op directions. ( depending on the patients dose this medication may need tapered off. They should get pre op directions from their prescribing provider.) GLP-1 Agonists (oral and injectables) Hold 7 days. Blood Thinning Medications: - Stop NSAIDS (Ibuprofen, Advil, Aleve, Motrin, Celebrex, Mobic, etc.) 7 days before surgery, as directed by your surgeon. - You may take Tylenol (Acetaminophen) or any of your current prescribed pain medications that do not contain aspirin or NSAIDS as needed. - If you take any of the following blood thinners, please contact your surgeon and the physician who prescribes it for you in order to get perioperative instructions as soon as possible Blood thinners: Aspirin,Coumadin, Plavix, Eliquis, Pradaxa, Xarelto, Lovenox, Brilinta, Effient, Savaysa, etc. Supplements - Stop Vitamin E, fish oil, Ginko, [place]'s Wort, flax seed oil, multivitamins, CBD oil, marijuana and other over the counter herbals and dietary supplements 7 days before surgery. This would not apply to cancer patients who are prescribed Marinol or any other prescription form of marijuana or CBD. If you are taking Phentermine please hold 4 days prior to surgery. Diabetes Medications Do not take the morning of surgery; Trajenta, Metformin, Actos/Pioglitazone and Amaryl/Glimepiride. For the following Medications, please HOLD 2 DAYS PRIOR TO SURGERY: Glucotrol/Glipizide, Januvia/Sitagliptin, Glyburide, Prandin/Repaglinide, Starlix/Nateglinide, Symlin/Pramlintide, For the following Medications, please HOLD 3 DAYS PRIOR TO SURGERY: Canagliflozin/Invokana, Dapagliflozin/Farxiga ,Empagliflozin/Jardiance, Invokamet/canagliflozin and metformin, Xigduo XR/ dapagliglozin and metformin, Glyxambi/ empagliflozin and metformin, Syndardy/ empagliflozin and metformin For the following Medications, please HOLD 4 DAYS PRIOR TO SURGERY: Ertugliflozin/Steglatro For the following Medications, please HOLD 7 DAYS PRIOR TO SURGERY: GLP-1 AGONIST: Adlyxin (lixisenatide), Bydureon BCise (exenatide suspension), Byetta (exenatide), Mounjaro (tirzepatide), Ozempic (semaglutide injection), Rybelsus (semaglutide tablets), Tanzeum (albiglutide), Trulicity (dulaglutide), Victoza (liraglutide), Wegovy (semaglutide), Saxenda (liraglutide) Insulin Medication Instructions: Please follow up with the provider that manages your Insulin and how to prepare you for surgery. Pain medications Approved pain medications can be taken the morning of surgery with a sip of water. . If you start any new medications after today's visit, please contact the surgeon's office. Important Reminders: - If you use CPAP/BIPAP, bring the machine with you to the hospital if you are scheduled to stay over night. - If you are prescribed inhalers for breathing, continue using them AND bring them to the surgery center. - Candy, mints, gum and tobacco products are NOT permitted the morning of surgery. - Hearing aids, dentures and glasses may be worn the morning of surgery. - NO jewelry, body piercings, makeup, hairpins or contacts are to be worn the day of surgery. - NO lotion, creams, powders or deodorants on the skin the day of surgery - You will need to have someone else (Family or friend) drive you home once discharged from the hospital. You cannot take a cab or Uber. You are not allowed to drive yourself home after surgery. -You will need an adult(over the age of 18) to stay with you for the first 24 hours post surgery oryour surgery may be cancelled. Please speak with your surgeon if this is an issue. If you develop symptoms such as a fever, cold, or flu, or have other changes to your health within TWO DAYS of scheduled surgery or the morning of surgery, please contact the surgery center above. Personal Belongings: - Leave ALL valuables and money at home or with family members. - You will need a form of ID and insurance card to check in the morning of surgery. - You will have to wear a hospital gown during your stay but if you wish to bring undergarments forafter surgery you may. -If you do not have a copy of advance directives on file with us, please bring a copy with you on the day of surgery. If you already have an Advance Directive, please fax a copy to [phone] or email to for it to be added to your chart. If you do not have an Advance Directive, you can find the appropriate form and more information at [email or web address]. We recommend that youcomplete the Advance Directive form found on the website and bring it with you the day of your surgery. It can be witnessed and scanned into your chart that day. Please note-you should have a 72-hour period between getting your vaccine and date of surgery - If you have a stimulator, implant or pump that requires a remote please bring the remote with youday of surgery Sola Kincaid APRN.TYSON documented [facility] NoteHNO ID: [id number] Author: NICOLE CATES MD Service: ? Author Type: Physician Type: Progress Notes Filed: 03/16/2024 15:57 Note Text: [facility] Today's Date: 03/16/2024 Name: Jess Meeks : 1965 Purpose: Follow-up Patient Evaluation - This is an established patient, returning today for continued evaluation and management of the chief complaint noted below, SCS consult Chief complaint: neck pain, lower back pain Referring Clinician: Self Pertinent Past Medical History: Diabetes, uterine fibroids, GERD, HTN, DJD, KAVON on CPAP periodic limb movement disorder, myalgia, HL, Pertinent Past Surgeries: S/p lumbar spine fusion, s/p SCS implant (2013) Plan at last visit: PLAN: Jess Meeks would benefit from the following to reach personal goals for decreasing pain, improving function and work participation, and/or improving quality of life: Medications: - continue Gabapentin 600-900 QHS, Diclofenac 75mg BID vs Nabumetone 500mg every day prn, Flexeril 10mg TID, Duloxetine 60mg every day. Pt encouraged to wean NSAIDs as tolerated Interventional Procedures: SCS battery exchange ([facility] - MRI Conditional leads) Studies: X-ray: Thoracic Spine, X-ray: Lumbar Spine Functional Yarsanism: NONE Referrals: No additional considerations at present Follow-up: after SCS battery exchange Depending on response to the above plan, consider: MRI L-spine after upgrade to MRI conditional IPG Interval History: Overall pain and functional disability since last visit: Unchanged New Complaints since last visit: No Today, pt reports that she completed her XR T/L-spine as instructed at her last OV. She has been scheduled for SCS battery exchange on 05/06/24. She continues to reports that she normally has close to 100% relief with her SCS. However, she reports that since September 2023, she has been unable to charge her system past 2 bars on her remote, with 3-4 days of total battery life with each charge. She reports that her external utilities manager will beep and tell her that her charging is done after 10min as opposed to 1-2hours, however after removing her utilities manager she has very limited duration of battery life. She reports that when her SCS is working it provides close to 100% relief of her lower back and leg symptoms. Patient normally that she has close to 100% relief from her SCS system with regards to her lower back pain and bilateral L>R lateral thigh pain to the level of the knee. With regards to her neck pain, patient reports that she has had significant benefit from her cervical RFA however she reports that it is unclear what percentage is due to her NSAID therapy as she has continued to take Nabumetone 400mg every day vs Diclofenac 75mg po BID as these have relieved almost all of her neck pain in the past. Chi has ongoing relief from L-sided cervical RFA, with manageable pain relief since her last cRFA in July 2022. She deferred R-sided cervical RFA due to sig increase in pain after her L-sided cervical RFA procedure which improved over time, and manageable symptoms on the R-side. Recall: Patient was last seen on 06/17/[address] C-spine from 05/2020 showed multilevel degenerative changes with foraminal and central canal stenosis - most prominent over C6-7 level. She has had CESIs and left cervical facet RFAs in the past for treatment with >75% relief for ~8 months from prior RFAs. She also has a SCS in place for low back pain d/t post-laminectomy syndrome - implanted in 2013 Dr. Hernandez. She was further noted to have owngoing lower back pain with muscle spasms and occasional radicular leg pain. At that visit, plan was made to repeat a cervical RFA at C3/4, C4/5 and C5/6 on the left which she underwent on 09/17/21. She was further planned for SCS reprogramming to assess for benefit of new programming vs need for new IPG. Patient reports that she has close to 100% relief from her SCS system with regards to her lower back pain and bilateral L>R lateral thigh pain to the level of the knee. She had an acute flare in May in 2020 and presented to her PCP and was given a Toradol shot x2 with improvement for 4 days each time, and was continued for Nabumetone 500mg every day. She will have intermittent muscle spasms that is responsive to Flexeril, especially when she is doing strenious activity at work. With regards to her neck pain, patient reports that she has had significant benefit from her cervical RFA however she reports that it is unclear what percentage is due to her NSAID therapy as she has continued to take Nabumetone 400mg every day vs Diclofenac 75mg po BID as these have relieved almost all of her neck pain in the past. She is still only 2 weeks post RFA and states (more content not included)...[facility]05-22-[facility] History of Present illness Narrative* Nicole Cates MD - 03/16/2024 2:36 PM EDT Images from the original note were not included. [facility] Today's Date: 03/16/2024 Name: Jess Meeks : 1965 Purpose: Follow-up Patient Evaluation - This is an established patient, returning today for continued evaluation and management of the chief complaint noted below, SCS consult Chief complaint: neck pain, lower back pain Referring Clinician: Self Pertinent Past Medical History: Diabetes, uterine fibroids, GERD, HTN, DJD, KAVON on CPAP periodic limb movement disorder, myalgia, HL, Pertinent Past Surgeries: S/p lumbar spine fusion, s/p SCS implant (2013) Plan at last visit: PLAN: Jess Meeks would benefit from the following to reach personal goals for decreasing pain,improving function and work participation, and/or improving quality of life: Medications: - continue Gabapentin 600-900 QHS, Diclofenac 75mg BID vs Nabumetone 500mg every day prn, Flexeril 10mg TID, Duloxetine 60mg every day. Pt encouraged to wean NSAIDs as tolerated Interventional Procedures: SCS battery exchange ([facility] - MRI Conditional leads) Studies: X-ray: Thoracic Spine, X-ray: Lumbar Spine Functional Yarsanism: NONE Referrals: No additional considerations at present Follow-up: after SCS battery exchange Depending on response to the above plan, consider: MRI L-spine after upgrade to MRI conditional IPG Interv al History: Overall pain and functional disability since last visit: Unchanged New Complaints since last visit: No Today, pt reports that she completed her XR T/L-spine as instructed at her last OV. She has been scheduled for SCS battery exchange on 05/06/24. She continues to reports that she normally has close to 100% relief with her SCS. However, she reports that since September 2023, she has been unable to charge her system past 2 bars on her remote, with 3-4 days of total battery life with each charge. She reports that her external utilities manager will beep and tell her that her charging is done after 10min as opposed to 1-2hours, however after removing her utilities manager she has very limited duration of battery life. She reports that when her SCS is working it provides close to 100% relief of her lower back and legsymptoms. Patient normally that she has close to 100% relief from her SCS system with regards to her lower back pain and bilateral L>R lateral thigh pain to the level of the knee. With regards to her neck pain, patient reports that she has had significant benefit from her cervical RFA however she reports that it is unclear what percentage is due to her NSAID therapy as she hascontinued to take Nabumetone 400mg every day vs Diclofenac 75mg po BID as these have relieved almost all of her neck pain in the past. Chi has ongoing relief from L-sided cervical RFA, with manageable pain relief since her last cRFA in July 2022. She deferred R-sided cervical RFA due to sig increase in pain after her L-sided cervical RFA procedure which improved over time, and manageable symptoms on the R-side. Recall: Patient was last seen on 06/17/[address] C-spine from 05/2020 showed multilevel degenerative changes with foraminal and central canal stenosis - most prominent over C6-7 level. She has had CESIs and left cervical facet RFAs in the past for treatment with >75% relief for ~8 months from prior RFAs. She also has a SCS in place for low back pain d/t post-laminectomy syndrome - implanted in 2013 Dr. Hernandez. She was further noted to have owngoing lower back pain with muscle spasms and occasional radicular leg pain. At that visit, plan was made to repeat a cervical RFA at C3/4, C4/5 and C5/6 on the left which she underwent on 09/17/21. She was further planned for SCS reprogramming to assess for benefit of new programming vs need for new IPG. Patient reports that she has close to 100% relief from her SCS system with regards to her lower back pain and bilateral L>R lateral thigh pain to the level of the knee. She had an acute flare in May in 2020 and presented to her PCP and was given a Toradol shot x2 with improvement for 4 days each time, and was continued for Nabumetone 500mg every day. She will have intermittent muscle spasmsthat is responsive to Flexeril, especially when she is doing strenious activity at work. With regards to her neck pain, patient reports that she has had significant benefit from her cervical RFA however she reports that it is unclear what percentage is due to her NSAID therapy as she hascontinued to take Nabumetone 400mg every day vs Diclofenac 75mg po BID as these have relieved almost all of her neck pain in the past. She is still only 2 weeks post RFA and states that she will await the 3-4 weeks before she trials being off NSAIDs to see if her repeat RFA has provided benefit. Furthermore, patient met with her SCS rep today who noted minimal charge burden of her IPG with hercurrent battery in good working order. She was provided additional programs but was most happy withher initial therapy. With regards to medications, patient is on Gabapentin 600-900 QHS, Diclofenac 75mg BID vs Nabumetone 500mg every day prn, Flexeril 10mg TID, Duloxetine 60mg every day PAIN DESCRIPTION: Timing: years Character: aching, sharp Primary location: lower back, neck L>R cervical paraspinal pain Radiation: L-spine: lateral thigh pain to the level of the knee C-spine: none Current pain level on NRS: 0/10 Current Pain Medications: Neuropathics: Cymbalta 60 mg daily, gabapentin 600-900 nightly NSAIDS: Diclofenac 75 mg twice daily v Muscle Relaxants: Flexeril 10 mg twice daily Topicals: Other Prescription or OTC Pain Medications: Opioids (when applicable): No question data found. Anti-depressants or Mood-Stabilizers: None Anti-Coagulants: None Therapies Attended (Current or Most Recent): No Current Therapies Treatment History: PAIN PROCEDURES: DATE PROCEDURE IMPROVEMENT 08/05/22 LEFT C3/4, C4/5 RFA 09/17/21 left C3/4, C4/5, C5/6 RFA 10/22/20 L C3, C4, C5 RFA 04/2020 C6-7 AJIT 09/2019 C6-7 AJIT Notabl e Events During Course of Treatment: History of Present Illness (HPI): Initial HPI DURATION AND ONSET: The pain complaint has been present for approximately >10 years. RED FLAG SYMPTOMS: denies red flags. Patient was last seen on 06/17/[address] C-spine from 05/2020 showed multilevel degenerative changes with foraminal and central canal stenosis - most prominent over C6-7 level. She has had CESIs and left cervical facet RFAs in the past for treatment with >75% relief for ~8 months from prior RFAs. She also has a SCS in place for low back pain d/t post-laminectomy syndrome - implanted [address] Hernandez. She was further noted to have owngoing lower back pain with muscle spasms and occasional radicular leg pain. At that visit, plan was made to repeat a cervical RFA at C3/4, C4/5 and C5/6 on the left which she underwent on 09/17/21. She was further planned for SCS reprogramming to assess for benefit of new programming vs need for new IPG. Today, patient reports that she has close to 100% relief from her SCS system with regards to her lower back pain and bilateral L>R lateral thigh pain to the level of the knee. She had an acute flare in May in 2020 and presented to her PCP and was given a Toradol shot x2 with improvement for 4days each time, and was continued for Nabumetone 500mg every day. She will have intermittent muscle spasms that is responsive to Flexeril, especially when she is doing strenious activity at work. With regards to her neck pain, patient reports that she has had significant benefit from her cervical RFA however she reports that it is unclear what percentage is due to her NSAID therapy as she hascontinued to take Nabumetone 400mg every day vs Diclofenac 75mg po BID as these have relieved almost all of her neck pain in the past. She is still only 2 weeks post RFA and states that she will await the 3-4 weeks before she trials being off NSAIDs to see if her repeat RFA has provided benefit. Furthermore, patient met with her SCS rep today who noted minimal charge burden of her IPG with hercurrent battery in good working order. She was provided additional programs but was most happy withher initial therapy. With regards to medications, patient is on Gabapentin 600-900 QHS, Diclofenac 75mg BID vs Nabumetone 500mg every day prn, Flexeril 10mg TID, Duloxetine 60mg every day Data Reviewed Today: Allergies: ALLERGIES Allergen Reactions Atorvastatin Myalgia Muscle aches; resolved after stopped statin Naproxen Hives Naproxyn [Naproxen] Hives Pravastatin Myalgia Did not tolerate Restasis [Cyclospor* Other: See Comments Burning and redness in the eyes Seasonal Allergies Other: See Comments Wellbutrin Xl [Bupr* Zoloft [Sertraline] Diarrhea Ibuprofen Rash Social History Tobacco Use Smoking status: Former Packs/day: 1.00 Years: 20.00 Additional pack years: 0.00 Total pack years: 20.00 Types: Cigarettes Smokeless tobacco: Never Vaping Use Vaping Use: Never used Substance Use Topics Alcohol use: Yes Comment: rare Drug use: No 12/23/2023 03/16/2024 INTAKE PAIN ASSESSMENT Are you having pain associated with your visit today? Yes, Provider notified No Pain Scales Verbal (Numeric Rating or Visual Analog Scale) Verbal (Numeric Rating or Visual Analog Scale) Pain Level 2 0 Pain Location Back-Lower Back-Lower Description Spasm;Aching;Throbbing Duration Units Years Intervention/Comfort measure Medication Comments implant Compliance: PDMP website checked and validated on 03/16/2024 by Nicole Cates MD All prescriptions have been APPROPRIATELY filled. No suspicious activity was identified. 2018 08/25/2019 10/01/2021 05/28/2022 12/23/2023 AG SPINE COMBINATION Questionnaire GREENLIGHT Completed Date 2018 Questionnaire Opiod Risk Tool Opiod Risk Tool Opiod Risk Tool Opiod Risk Tool Opiod Risk Tool Completed Date 2018 08/25/2019 10/01/2021 05/28/2022 12/23/2023 Comments 4 (All drug screens are appropriate unless indicated otherwise) Risk Assessment: BRANDIE-7: No data to display (0-4) minimal anxiety, (5-9) mild anxiety, (10-14) moderate anxiety, (15-21) severe anxiety PHQ-9: 01/07/2021 09/28/2021 08/08/2022 PHQ-9 Score 5 3 7 (0-4) minimal depression, (5-9) mild depression, (10-14) moderate depression, (15-19) moderately severe depression, (20-27) severe depression Diagnostic Studies: Relevant Imaging: MRI Spine Report MRI CERVICAL SPINE WO CONTRAST Collected: 02/22/2014 8:51 AM (Final result) Narrative: See Link below for Image XR T-spine 01/18/24: IMPRESSION: MULTILEVEL DEGENERATIVE DISC DISEASE OF THE THORACIC AND LUMBAR SPINE. DEXTROSCOLIOSIS OF LUMBAR SPINE. FUSION AT L5/S1 WITH LAMINECTOMY AT L5. DEXTROSCOLIOSIS OF THE LUMBAR SPINE. RESULTS: Counting reference: Anatomic Variant: None. The first rib-bearing vertebral bodies considered T1. L4-5 is considered the level of the iliac crest and assume there are 5 lumbar-type vertebrae. There are 12 thoracic and 5 lumbar vertebrae. Bones are osteopenic. Degenerative disc disease throughout the thoracic spine prominent thoracic kyphosis centered at T6. Vertebral bodies and pedicles are intact. There are neurostimulator wires present with the tips of these at the level of T7. Mild dextroscoliosis of the lumbar spine centered at L3. Status post L5/S1 interbody fusion and posterior pedicle screw and dania fixation with laminectomy at L5. Mild degenerative disc disease at L2/L3 and moderate to marked narrowing at L3/L4 and L4/L5 disc spaces. Facet degenerative changes at L2-L4. Battery pack for the neurostimulator wires is present is the right flank, the wires anteriorly at the T12/L1 level. XR C-spine 07/2018: IMPRESSION: DEGENERATIVE DISC AND FACET DISEASE UNCHANGED. SINCE THE PREVIOUS EXAM PROGRESSION OF LEFT NEUROFORAMINAL NARROWING SINCE THE PREVIOUS EXAM RESULTS: Counting reference: Craniocervical junction.. Straightening of normal cervical lordosis. Mild narrowing of C4/C5 and C5/C6 disc space, moderate narrowing at C6/C7 disc space. Osteophytes anteriorly at C4-C6 and uncovertebral osteophytes at C4-C7. Narrowing of facet joints. Mild neuroforaminal narrowing at C4/C5 and moderate neuroforaminal narrowing C5/C6 and C6/C7 on the left. Right neuroforamen are patent XR T-spine 2013: FINDINGS: Spinal cord stimulator leads are seen in the lower thoracic dorsal spinal canal. IMPRESSION: Spot imaging and fluoroscopy provided by radiology Electrodiagnostic Study (EMG): None Recent Labs: Creatinine Date Value Ref Range Status 03/07/2022 0.82 0.58 - 0.96 mg/dL Final eGFR Date Value Ref Range Status 04/07/2014 >60 >60mL/min/1.73m2 Final Comment: If the patient is , multiply the result by 1.210. Glucose, Point of Care Date Value Ref Range Status 08/05/2022 111 (A) 74 - 99 mg/dL Final Comment: Location:[facility] Sp[facility] and Pain, [address], [facility] The Accu-Chek Inform II glucose meter has not been approved for testing on patients receiving intensive medical intervention or therapy and results from this point of care glucose test should not be used for patient management decisions in these cases. Inaccurate results may also occur from other interfering factors, such as N-acetylcysteine (blood concentrations of greater than 5mg/dL), galactose, extremes of hematocrit (<10 or >65), or high doses of ascorbic acid (vitamin C) greater than 3mg/dL. Consider alternate testing mechanisms (e.g. core lab, blood gas instrument) in the above situations. Current Medications, Past Medical History, Past Surgical History, Family History, Social History and Review of Systems: On today's date, noted above, I have confirmed and edited as necessary, the PFSH and ROS obtained by others. Physical Exam: 03/16/24 1346 Pulse: 78 Resp: 16 SpO2: 96% Palpation: (-) Midline cervical thoracic/lumbosacral spine tenderness (+) Cervical and Lumbosacral paraspinal muscle tenderness (-) SIJ tenderness (-) piriformis muscle tenderness (-) Greater trochanter tenderness bilaterally ROM: Lumbar/Cervical spine: flexion, extension, side-bending, rotation all full and painless Manuevers: (-) SLR negative bilaterally (+) Facet loading (Carreon's Test) bilaterally (-) Conner's/FABERs negative bilaterally (-) Vishal Finger Test to SIJ negative on two attempts Cervical spine: (-) Spurling's negative bilaterally (-) L'Hermitte's sign negative. ROM Cervical spine: limited to 60 degrees to the left due to pain, otherwise rotation, extension and flexion of cervical spine smooth and painless. Muscles: muscle spasm, trigger points, atrophy, fasciculation not appreciated 5/5 strength in all upper and lower extremity myotomes. Gait normal. Heel and toe gait normal. Neuro: Reflexes: DTRs 2+ in biceps, triceps, brachialis, patellar and achilles bilaterally. Sensation: grossly intact to light touch in b/l UE and LE IMPRESSION: 58 year old female with a history of depression, diabetes, diffuse cystic mastopathy, fibroids, HTN, DJD, LBP, KAVON on CPAP, maylgai, cervicalgia, periodic limb movement disorder, HTN, HL,T2DM, lumbar spinal fusion c/b post- laminectomy syndrome c/b postlaminectomy syndrome s/p SCS implant who presents regarding chronic neck and low back pain due to cervical spondylosis, as well as SCSbattery exchange consultation. Patient has ongoing lower back and radicular leg symptoms due to multifactorial pathology includinglumbar spondylosis, lumbar radiculopathy in setting of known postlaminectomy syndrome. Her lower back pain is normally well-managed with medication and SCS therapy. With regards to patient's ongoing neck pain, patient has evidence of multifactorial pain due to cervical spondylosis (multilevel facet arthropathy noted on MRI C-spine, responsive to cervical RFA on the L side, R side deferred), as well as cervical neuroforaminal stenosis (multilevel NF stenosis upto mild in severity). Patient reports that she has minimal lower back and LE pain with use of her SCS system, which provides 100% relief of her symptoms. However starting in September 2023, she has had difficulty charging her SCS system, with inability to charge past 2 bars on her remote, and her battery only lasting for3-4 days in total, whereas previously she would be able to maintain several weeks of charge. Her SCS was interrogated by [employer] who noted no significant impedances however concern was noted for patient's battery being end-of-life as she has had the system for over 10 years now (2013). Plan was made to proceed with SCS battery exchange. XR T/L-spine showed appropriate positioningof her SCS leads at the T7 level. The risks and benefits of undergoing SCS IPG replacement was discussed at todays visit. The patientwas extensively counseled regarding the risks/benefits of this procedure including but not limited to lead migration, infection of the pocket site or implanted system, epidural abscess, epidural hematoma formation, dural puncture/PDPH, nerve injury, incontinence or weakness/paralysis. Pt is agreeable to proceeding with her SCS battery exchange as she finds her SCS system helpful for her pain. Thepatient was extensively counseled regarding the risks/benefit of the procedure, and agreed on proceeding with her SCS battery exchange at next available, with all questions answered today. Diagnoses: (Z96.89) S/P insertion of spinal cord stimulator (primary encounter diagnosis) (T85.192A) Malfunction of spinal cord stimulator, initial encounter ([facility]) (M47.812) Cervical spondylosis (G44.86) Cervicogenic headache (M54.2, G89.29) Chronic cervical pain PLAN: Jess Meeks would benefit from the following to reach personal goals for decreasing pain,improving function and work participation, and/or improving quality of life: Medications: - continue Gabapentin 600-900 QHS, Diclofenac 75mg BID vs Nabumetone 500mg every day prn, Flexeril 10mg TID, Duloxetine 60mg every day. Pt encouraged to wean NSAIDs as tolerated Interventional Procedures: SCS battery exchange ([employer] - MRI Conditional leads) - planned for OR on 05/08/24, IPG in R flank alongside anchor/midline incision) Studies: None Functional Yarsanism: NONE Referrals: No additional considerations at present Follow-up: 2 weeks after SCS battery exchange Depending on response to the above plan, consider: MRI L-spine after upgrade to MRI conditional IPG Compliance and Clinic Policies Reviewed and/or Discussed Today: None Attribution: In addition to reviewing the information noted above, some elements copied from my most recent clinical note(s), including the physical exam (completed in entirety today), and the impression and plan sections, have been updated where appropriate. All reflect current medical decision making from today's date. Nicole Cates MD PhD Pain Management [facility], [facility] * Malik Pascual LPN - 03/16/2024 1:47 PM EDT Review of Systems Constitutional: Negative for activity change, chills, fever and unexpected weight change. Genitourinary: Negative for difficulty urinating. Musculoskeletal: Positive for arthralgias, back pain, gait problem, myalgias, neck pain and neck stiffness. Negative for joint swelling. Knee hurts some days mostly right. No neck pain or stiffness today. Neurological: Positive for numbness. Negative for weakness and headaches. Psychiatric/Behavioral: Negative for dysphoric mood, sleep disturbance and suicidal ideas. The patient is not nervous/anxious. documented in this encounterLuther[facility]05-22-2024 NoteHNO ID: [id number] Author: MALIK PASCUAL LPN Service: ? Author Type: LICENSED NURSE Type: Progress Notes Filed: 03/16/2024 15:57 Note Text: Review of Systems Constitutional: Negative for activity change, chills, fever and unexpected weight change. Genitourinary: Negative for difficulty urinating. Musculoskeletal: Positive for arthralgias, back pain, gait problem, myalgias, neck pain and neck stiffness. Negative for joint swelling. Knee hurts some days mostly right. No neck pain or stiffness today. Neurological: Positive for numbness. Negative for weakness and headaches. Psychiatric/Behavioral: Negative for dysphoric mood, sleep disturbance and suicidal ideas. The patient is not nervous/anxious.[facility] 01-14-2024 NoteHNO ID: [id number] Author: MAYNOR BALL RT(R) Service: Radiology Author Type: Technologist Type: Progress Notes Filed: 01/14/2024 14:24 Note Text: Radiology Service Progress Note PATIENT NAME: Jess Meeks DATE OF SERVICE: January 14, 2024 TIME: 2:10 PM PATIENT IDENTITY VERIFICATION COMPLETED USING TWO (2) IDENTIFIERS: Name and Date of confirmed by patient verbally. FALL SCREENING: Has the patient had 2 falls in the last year or 1 fall with injury or currently using an Ambulatory Assistive Device (Walker, Cane, Wheelchair, Crutches, etc.)? No PATIENT GENDER DATA: Female. status: : No status: NO. PATIENT RELEVANT IMPLANT DATA REVIEWED: Yes PATIENT PRESENTS WITH AN IMPLANTABLE OR ATTACHED SOFTWARE ENGINEERING SPECIALIST: No RADIOLOGY DEPARTMENT: General X-ray: Exam(s) Completed: Spine X-Ray(s): Thoracic and Lumbar AP / LAT / L5-S1 / FLEX-EXT PERIPHERAL IV DATA: Not applicable SIGNED BY: RT Robbi(R) January 14, 2024 2:10 [facility]03-21-2024 History of Present illness Narrative* Maynor Ball RT(R) - 01/14/2024 2:10 PM EDT Radiology Service Progress Note PATIENT NAME: Jess Meeks DATE OF SERVICE: January 14, 2024 TIME: 2:10 PM PATIENT IDENTITY VERIFICATION COMPLETED USING TWO (2) IDENTIFIERS: Name and Date of confirmedby patient verbally. FALL SCREENING: Has the patient had 2 falls in the last year or 1 fall with injury or currently using an Ambulatory Assistive Device (Walker, Cane, Wheelchair, Crutches, etc.)? No PATIENT GENDER DATA: Female. status: : No status: NO. PATIENT RELEVANT IMPLANT DATA REVIEWED: Yes PATIENT PRESENTS WITH AN IMPLANTABLE OR ATTACHED SOFTWARE ENGINEERING SPECIALIST: No RADIOLOGY DEPARTMENT: General X-ray: Exam(s) Completed: Spine X-Ray(s): Thoracic and Lumbar AP / LAT / L5-S1 / FLEX-EXT PERIPHERAL IV DATA: Not applicable SIGNED BY: RT Robbi(R) January 14, 2024 2:10 PM documented in this encounterLutheran Hospital03-08-2024 Miscellaneous Notes* Telephone Encounter - Griffin Alyson - 01/01/2024 10:13 AM EST Submitted to [employer] on 12/31/23 for prior Auth. Case # [id number]. This is pending approval. Alyson Moya [place] to Dr. Sathish Edmonds, Spinal Cord Stimulator, Peripheral Nerve Stimulator, [facility] [address] [address] P: [phone] ext. [phone] F: [phone] documented in this encounterLutheran Hospital02-29-2024 Miscellaneous Notes* Telephone Encounter - Suzanne Myers - 12/24/2023 12:35 PM EST ----- Message from Rebecca Voss sent at 12/24/2023 12:30 PM EST ----- Regarding: Spine/ [Dr. Darryn MD] Recent Ov Notes Subject Line Format:Spine/ [Dr. Darryn MD] Recent Ov Notes Patient: Jess Meeks Date of : 1965 Primary Care Provider: No primary care provider on file. Patient has been identified by name and Date of (Y/N): y Patient: Jess Meeks Date of : 1965 Provider for this encounter: No primary care provider on file. Reason for the call/escalation: Recent Ov Notes Was Patient Referred to [facility]/Seek Emergency Treatment (Y/N): n Did Patient Agree (Y/N): n Was An Attempt Made To Transfer The Patient To The Office (Y/N): n Were You Able To Reach Someone At The Office (Y/N): n If Yes - Patient Was Transferred To (Caregivers Name): n If No - Which [facility] Leadership Knowledge Engineer Did You Speak With Regarding This Patient: n Was an appointment scheduled (Y/N): n Reason patient was requesting visit (RFV/signs and symptoms/diagnosis) : Recent office notes, please fax to [facility] (spoke with Mariana) Person calling if other than patient: yes Return call to if other than patient: yes Best contact number: [phone] anyone that answers will be able to help Thank you, Rebecca Voss December 24, 2023 12:31 PM documented in this encounterLutheran Hospital02-28-2024 NoteHNO ID: [id number] Author: NICOLE CATES MD Service: ? Author Type: Physician Type: Progress Notes Filed: 01/13/2024 21:30 Note Text: [facility] Today's Date: 12/27/2023 Name: Jess Meeks : 1965 Purpose: Follow-up Patient Evaluation - This is an established patient, returning today for continued evaluation and management of the chief complaint noted below, SCS consult Chief complaint: neck pain, lower back pain Referring Clinician: Self Pertinent Past Medical History: Diabetes, uterine fibroids, GERD, HTN, DJD, KAVON on CPAP periodic limb movement disorder, myalgia, HL, Pertinent Past Surgeries: S/p lumbar spine fusion, s/p SCS implant (2013) Plan at last visit: Hold off on R-sided cervical RFA Patient presents for TV for Cervical RFA on the LEFT. Reports no relief since the RFA. She was scheduled for RIGHT sided cervical RFA, however she cancelled due to her increased pain and discomfort from the injection. She continues to have discomfort and aching near her injection sites. We will call in medrol dosepak for her acute pain and monitor her symptoms Medication use(s) and side effects reviewed with patient today with verbalized understanding. Advised to medrol with food and to avoid any NSAIDS while taking. If no improvement, new or worsening symptoms I recommend an updated OV to re-evaluate or she may proceed with RFA on the RIGHT side if she feels is needed. Interval History: Overall pain and functional disability since last visit: Unchanged New Complaints since last visit: No Today, pt reports that she has ongoing relief from L-sided cervical RFA, with manageable pain relief since her last cRFA in July 2022. She deferred R-sided cervical RFA due to sig increase in pain after her L-sided cervical RFA procedure which improved over time, and manageable symptoms on the R-side. She now reports that she normally has close to 100% relief with her SCS. However, she reports that since September 2023, she has been unable to charge her system past 2 bars on her remote, with 3-4 days of total battery life with each charge. She reports that her external utilities manager will beep and tell her that her charging is done after 10min as opposed to 1-2hours, however after removing her utilities manager she has very limited duration of battery life. She reports that when her SCS is working it provides close to 100% relief of her lower back and leg symptoms. Patient normally that she has close to 100% relief from her SCS system with regards to her lower back pain and bilateral L>R lateral thigh pain to the level of the knee. With regards to her neck pain, patient reports that she has had significant benefit from her cervical RFA however she reports that it is unclear what percentage is due to her NSAID therapy as she has continued to take Nabumetone 400mg every day vs Diclofenac 75mg po BID as these have relieved almost all of her neck pain in the past. Recall: Patient was last seen on 06/17/[address] C-spine from 05/2020 showed multilevel degenerative changes with foraminal and central canal stenosis - most prominent over C6-7 level. She has had CESIs and left cervical facet RFAs in the past for treatment with >75% relief for ~8 months from prior RFAs. She also has a SCS in place for low back pain d/t post-laminectomy syndrome - implanted in 2013 Dr. Hernandez. She was further noted to have owngoing lower back pain with muscle spasms and occasional radicular leg pain. At that visit, plan was made to repeat a cervical RFA at C3/4, C4/5 and C5/6 on the left which she underwent on 09/17/21. She was further planned for SCS reprogramming to assess for benefit of new programming vs need for new IPG. Patient reports that she has close to 100% relief from her SCS system with regards to her lower back pain and bilateral L>R lateral thigh pain to the level of the knee. She had an acute flare in May in 2020 and presented to her PCP and was given a Toradol shot x2 with improvement for 4 days each time, and was continued for Nabumetone 500mg every day. She will have intermittent muscle spasms that is responsive to Flexeril, especially when she is doing strenious activity at work. With regards to her neck pain, patient reports that she has had significant benefit from her cervical RFA however she reports that it is unclear what percentage is due to her NSAID therapy as she has continued to take Nabumetone 400mg every day vs Diclofenac 75mg po BID as these have relieved almost all of her neck pain in the past. She is still only 2 weeks post RFA and states that she will await the 3-4 weeks before she trials being off NSAIDs to see if her repeat RFA has provided benefit. Furthermore, patient met with her SC (more content not included)...[facility]02-28-[facility] History of Present illness Narrative* Nicole Cates MD - 12/23/2023 12:03 PM EST Images from the original note were not included. [facility] Today's Date: 12/27/2023 Name: Jess Meeks : 1965 Purpose: Follow-up Patient Evaluation - This is an established patient, returning today for continued evaluation and management of the chief complaint noted below, SCS consult Chief complaint: neck pain, lower back pain Referring Clinician: Self Pertinent Past Medical History: Diabetes, uterine fibroids, GERD, HTN, DJD, KAVON on CPAP periodic limb movement disorder, myalgia, HL, Pertinent Past Surgeries: S/p lumbar spine fusion, s/p SCS implant (2013) Plan at last visit: Hold off on R-sided cervical RFA Patient presents for TV for Cervical RFA on the LEFT. Reports no relief since the RFA. She was scheduled for RIGHT sided cervical RFA, however she cancelled due to her increased pain and discomfort from the injection. She continues to have discomfort and aching near her injection sites. We will call in medrol dosepak for her acute pain and monitor her symptoms Medication use(s) and side effects reviewed with patient today with verbalized understanding. Advised to medrol with food and to avoid any NSAIDS while taking. If no improvement, new or worsening symptoms I recommend an updated OV to re- evaluate or she may proceed with RFA on the RIGHT side if she feels is needed. Interv al History: Overall pain and functional disability since last visit: Unchanged New Complaints since last visit: No Today, pt reports that she has ongoing relief from L-sided cervical RFA, with manageable pain relief since her last cRFA in July 2022. She deferred R-sided cervical RFA due to sig increase in painafter her L-sided cervical RFA procedure which improved over time, and manageable symptoms on the R-side. She now reports that she normally has close to 100% relief with her SCS. However, she reports that since September 2023, she has been unable to charge her system past 2 bars on her remote, with 3-4 days of total battery life with each charge. She reports that her external utilities manager will beep and tell her that her charging is done after 10min as opposed to 1-2hours, however after removing her chargershe has very limited duration of battery life. She reports that when her SCS is working it provides close to 100% relief of her lower back and legsymptoms. Patient normally that she has close to 100% relief from her SCS system with regards to her lower back pain and bilateral L>R lateral thigh pain to the level of the knee. With regards to her neck pain, patient reports that she has had significant benefit from her cervical RFA however she reports that it is unclear what percentage is due to her NSAID therapy as she hascontinued to take Nabumetone 400mg every day vs Diclofenac 75mg po BID as these have relieved almost all of her neck pain in the past. Recall: Patient was last seen on 06/17/[address] C-spine from 05/2020 showed multilevel degenerative changes with foraminal and central canal stenosis - most prominent over C6-7 level. She has had CESIs and left cervical facet RFAs in the past for treatment with >75% relief for ~8 months from prior RFAs. She also has a SCS in place for low back pain d/t post-laminectomy syndrome - implanted in 2013 Dr. Hernandez. She was further noted to have owngoing lower back pain with muscle spasms and occasional radicular leg pain. At that visit, plan was made to repeat a cervical RFA at C3/4, C4/5 and C5/6 on the left which she underwent on 09/17/21. She was further planned for SCS reprogramming to assess for benefit of new programming vs need for new IPG. Patient reports that she has close to 100% relief from her SCS system with regards to her lower back pain and bilateral L>R lateral thigh pain to the level of the knee. She had an acute flare in May in 2020 and presented to her PCP and was given a Toradol shot x2 with improvement for 4 days each time, and was continued for Nabumetone 500mg every day. She will have intermittent muscle spasmsthat is responsive to Flexeril, especially when she is doing strenious activity at work. With regards to her neck pain, patient reports that she has had significant benefit from her cervical RFA however she reports that it is unclear what percentage is due to her NSAID therapy as she hascontinued to take Nabumetone 400mg every day vs Diclofenac 75mg po BID as these have relieved almost all of her neck pain in the past. She is still only 2 weeks post RFA and states that she will await the 3-4 weeks before she trials being off NSAIDs to see if her repeat RFA has provided benefit. Furthermore, patient met with her SCS rep today who noted minimal charge burden of her IPG with hercurrent battery in good working order. She was provided additional programs but was most happy withher initial therapy. With regards to medications, patient is on Gabapentin 600-900 QHS, Diclofenac 75mg BID vs Nabumetone 500mg every day prn, Flexeril 10mg TID, Duloxetine 60mg every day PAIN DESCRIPTION: Timing: years Character: aching, sharp Primary location: lower back, neck L>R cervical paraspinal pain Radiation: L-spine: lateral thigh pain to the level of the knee C-spine: none Current pain level on NRS: 0/10 Current Pain Medications: Neuropathics: Cymbalta 60 mg daily, gabapentin 600-900 nightly NSAIDS: Diclofenac 75 mg twice daily v Muscle Relaxants: Flexeril 10 mg twice daily Topicals: Other Prescription or OTC Pain Medications: Opioids (when applicable): No question data found. Anti-depressants or Mood-Stabilizers: None Anti-Coagulants: None Therapies Attended (Current or Most Recent): No Current Therapies Treatment History: PAIN PROCEDURES: DATE PROCEDURE IMPROVEMENT 08/05/22 LEFT C3/4, C4/5 RFA 09/17/21 left C3/4, C4/5, C5/6 RFA 10/22/20 L C3, C4, C5 RFA 04/2020 C6-7 AJIT 09/2019 C6-7 AJIT Notabl e Events During Course of Treatment: History of Present Illness (HPI): Initial HPI DURATION AND ONSET: The pain complaint has been present for approximately >10 years. RED FLAG SYMPTOMS: denies red flags. Patient was last seen on 06/17/[address] C-spine from 05/2020 showed multilevel degenerative changes with foraminal and central canal stenosis - most prominent over C6-7 level. She has had CESIs and left cervical facet RFAs in the past for treatment with >75% relief for ~8 months from prior RFAs. She also has a SCS in place for low back pain d/t post-laminectomy syndrome - implanted [address] Hernandez. She was further noted to have owngoing lower back pain with muscle spasms and occasional radicular leg pain. At that visit, plan was made to repeat a cervical RFA at C3/4, C4/5 and C5/6 on the left which she underwent on 09/17/21. She was further planned for SCS reprogramming to assess for benefit of new programming vs need for new IPG. Today, patient reports that she has close to 100% relief from her SCS system with regards to her lower back pain and bilateral L>R lateral thigh pain to the level of the knee. She had an acute flare in May in 2020 and presented to her PCP and was given a Toradol shot x2 with improvement for 4days each time, and was continued for Nabumetone 500mg every day. She will have intermittent muscle spasms that is responsive to Flexeril, especially when she is doing strenious activity at work. With regards to her neck pain, patient reports that she has had significant benefit from her cervical RFA however she reports that it is unclear what percentage is due to her NSAID therapy as she hascontinued to take Nabumetone 400mg every day vs Diclofenac 75mg po BID as these have relieved almost all of her neck pain in the past. She is still only 2 weeks post RFA and states that she will await the 3-4 weeks before she trials being off NSAIDs to see if her repeat RFA has provided benefit. Furthermore, patient met with her SCS rep today who noted minimal charge burden of her IPG with hercurrent battery in good working order. She was provided additional programs but was most happy withher initial therapy. With regards to medications, patient is on Gabapentin 600-900 QHS, Diclofenac 75mg BID vs Nabumetone 500mg every day prn, Flexeril 10mg TID, Duloxetine 60mg every day Data Reviewed Today: Allergies: ALLERGIES Allergen Reactions Atorvastatin Myalgia Muscle aches; resolved after stopped statin Naproxen Hives Naproxyn [Naproxen] Hives Pravastatin Myalgia Did not tolerate Restasis [Cyclospor* Other: See Comments Burning and redness in the eyes Seasonal Allergies Other: See Comments Wellbutrin Xl [Bupr* Zoloft [Sertraline] Diarrhea Ibuprofen Rash Social History Tobacco Use Smoking status: Former Packs/day: 1.00 Years: 20.00 Additional pack years: 0.00 Total pack years: 20.00 Types: Cigarettes Smokeless tobacco: Never Vaping Use Vaping Use: Never used Substance Use Topics Alcohol use: Yes Comment: rare Drug use: No INTAKE PAIN ASSESSMENT 08/08/2022 12/23/2023 Are you having pain associated with your visit today? No Yes, Provider notified Pain Scales - Verbal (Numeric Rating or Visual Analog Scale) Pain Level - 2 Pain Location - Back-Lower Description - Spasm;Aching;Throbbing Duration Amount of Time - - Duration Units - Years Frequency - - Intervention/Comfort measure - Medication Comments - implant Pain Assessment - - Compliance: PDMP website checked and validated on 12/27/2023 by Nicole Cates MD All prescriptions have been APPROPRIATELY filled. No suspicious activity was identified. AG SPINE COMBINATION 2018 08/25/2019 10/01/2021 05/28/2022 12/23/2023 Questionnaire GREENLIGHT - - - - Completed Date 2018 - - - - Questionnaire Opiod Risk Tool Opiod Risk Tool Opiod Risk Tool Opiod Risk Tool Opiod Risk Tool Completed Date 2018 08/25/2019 10/01/2021 05/28/2022 12/23/2023 Comments - - - 4 - (All drug screens are appropriate unless indicated otherwise) Risk Assessment: BRANDIE-7: No flowsheet data found.(0-4) minimal anxiety, (5-9) mild anxiety, (10-14) moderate anxiety, (15-21) severe anxiety PHQ-9: PHQ-9 01/07/2021 09/28/2021 08/08/2022 Score 5 3 7 (0-4) minimal depression, (5-9) mild depression, (10-14) moderate depression, (15-19) moderately severe depression, (20-27) severe depression Diagnostic Studies: Relevant Imaging: MRI Spine Report MRI CERVICAL SPINE WO CONTRAST Collected: 02/22/2014 8:51 AM (Final result) Narrative: See Link below for Image XR C-spine 07/2018: IMPRESSION: DEGENERATIVE DISC AND FACET DISEASE UNCHANGED. SINCE THE PREVIOUS EXAM PROGRESSION OF LEFT NEUROFORAMINAL NARROWING SINCE THE PREVIOUS EXAM RESULTS: Counting reference: Craniocervical junction.. Straightening of normal cervical lordosis. Mild narrowing of C4/C5 and C5/C6 disc space, moderate narrowing at C6/C7 disc space. Osteophytes anteriorly at C4-C6 and uncovertebral osteophytes at C4-C7. Narrowing of facet joints. Mild neuroforaminal narrowing at C4/C5 and moderate neuroforaminal narrowing C5/C6 and C6/C7 on the left. Right neuroforamen are patent XR T-spine 2013: FINDINGS: Spinal cord stimulator leads are seen in the lower thoracic dorsal spinal canal. IMPRESSION: Spot imaging and fluoroscopy provided by radiology Electrodiagnostic Study (EMG): None Recent Labs: Creatinine Date Value Ref Range Status 03/07/2022 0.82 0.58 - 0.96 mg/dL Final eGFR Date Value Ref Range Status 04/07/2014 >60 >60mL/min/1.73m2 Final Comment: If the patient is , multiply the result by 1.210. Glucose, Point of Care Date Value Ref Range Status 08/05/2022 111 (A) 74 - 99 mg/dL Final Comment: Location:[facility], [address] [place] [address], [facility] The Accu-Chek Inform II glucose meter has not been approved for testing on patients receiving intensive medical intervention or therapy and results from this point of care glucose test should not be used for patient management decisions in these cases. Inaccurate results may also occur from other interfering factors, such as N-acetylcysteine (blood concentrations of greater than 5mg/dL), galactose, extremes of hematocrit (<10 or >65), or high doses of ascorbic acid (vitamin C) greater than 3mg/dL. Consider alternate testing mechanisms (e.g. core lab, blood gas instrument) in the above situations. Current Medications, Past Medical History, Past Surgical History, Family History, Social History and Review of Systems: On today's date, noted above, I have confirmed and edited as necessary, the PFSH and ROS obtained by others. Physical Exam: 12/23/23 1204 Pulse: 70 Resp: 20 SpO2: 99% Palpation: (-) Midline cervical thoracic/lumbosacral spine tenderness (+) Cervical and Lumbosacral paraspinal muscle tenderness (-) SIJ tenderness (-) piriformis muscle tenderness (-) Greater trochanter tenderness bilaterally ROM: Lumbar/Cervical spine: flexion, extension, side-bending, rotation all full and painless Manuevers: (-) SLR negative bilaterally (+) Facet loading (Carreon's Test) bilaterally (-) Conner's/FABERs negative bilaterally (-) Vishal Finger Test to SIJ negative on two attempts Cervical spine: (-) Spurling's negative bilaterally (-) L'Hermitte's sign negative. ROM Cervical spine: limited to 60 degrees to the left due to pain, otherwise rotation, extension and flexion of cervical spine smooth and painless. Muscles: muscle spasm, trigger points, atrophy, fasciculation not appreciated 5/5 strength in all upper and lower extremity myotomes. Gait normal. Heel and toe gait normal. Neuro: Reflexes: DTRs 2+ in biceps, triceps, brachialis, patellar and achilles bilaterally. Sensation: grossly intact to light touch in b/l UE and LE IMPRESSION: 58 year old female with a history of depression, diabetes, diffuse cystic mastopathy, fibroids, HTN, DJD, LBP, KAVON on CPAP, maylgai, cervicalgia, periodic limb movement disorder, HTN, HL,T2DM, lumbar spinal fusion c/b post- laminectomy syndrome c/b postlaminectomy syndrome s/p SCS implant who presents regarding chronic neck and low back pain due to cervical spondylosis, as well as SCSbattery exchange consultation. Patient has ongoing lower back and radicular leg symptoms due to multifactorial pathology includinglumbar spondylosis, lumbar radiculopathy in setting of known postlaminectomy syndrome. Her lower back pain is normally well-managed with medication and SCS therapy. With regards to patient's ongoing neck pain, patient has evidence of multifactorial pain due to cervical spondylosis (multilevel facet arthropathy noted on MRI C-spine, responsive to cervical RFA on the L side, R side deferred), as well as cervical neuroforaminal stenosis (multilevel NF stenosis upto mild in severity). Patient reports that she has minimal lower back and LE pain with use of her SCS system, which provides 100% relief of her symptoms. However starting in September 2023, she has had difficulty charging her SCS system, with inability to charge past 2 bars on her remote, and her battery only lasting for3-4 days in total, whereas previously she would be able to maintain several weeks of charge. Her SCS was interrogated by [employer] who noted no significant impedances however concern was noted for patient's battery being end-of-life as she has had the system for over 10 years now (placed 2013). Plan was made to proceed with SCS battery exchange after completion of XRT/L-spine to ensure appropriate positioning of her current leads. Diagnoses: (Z96.89) S/P insertion of spinal cord stimulator (primary encounter diagnosis) (T85.192A) Malfunction of spinal cord stimulator, initial encounter ([facility]) PLAN: Jess Meeks would benefit from the following to reach personal goals for decreasing pain,improving function and work participation, and/or improving quality of life: Medications: - continue Gabapentin 600-900 QHS, Diclofenac 75mg BID vs Nabumetone 500mg every day prn, Flexeril 10mg TID, Duloxetine 60mg every day. Pt encouraged to wean NSAIDs as tolerated Interventional Procedures: SCS battery exchange ([employer] - MRI Conditional leads) Studies: X-ray: Thoracic Spine, X-ray: Lumbar Spine Functional Yarsanism: NONE Referrals: No additional considerations at present Follow-up: after SCS battery exchange Depending on response to the above plan, consider: MRI L-spine after upgrade to MRI conditional IPG Compliance and Clinic Policies Reviewed and/or Discussed Today: None Attribution: In addition to reviewing the information noted above, some elements copied from my most recent clinical note(s), including the physical exam (completed in entirety today), and the impression and plan sections, have been updated where appropriate. All reflect current medical decision making from today's date. Nicole Cates MD PhD Pain Management [facility] * Jessica Torres LPN - 12/23/2023 12:01 PM EST Review of Systems Constitutional: Positive for activity change. Negative for chills, fever and unexpected weight change. Genitourinary: Negative for difficulty urinating. Musculoskeletal: Positive for arthralgias, back pain, joint swelling, myalgias, neck pain and neck stiffness. Negative for gait problem. Neurological: Positive for weakness and numbness. Negative for headaches. Psychiatric/Behavioral: Positive for sleep disturbance. Negative for dysphoric mood and suicidal ideas. The patient is not nervous/anxious. documented in this encounterLuther[facility]02-28-2024 NoteHNO ID: [id number] Author: JESSICA TORRES LPN Service: ? Author Type: LICENSED NURSE Type: Progress Notes Filed: 12/27/2023 16:06 Note Text: Review of Systems Constitutional: Positive for activity change. Negative for chills, fever and unexpected weight change. Genitourinary: Negative for difficulty urinating. Musculoskeletal: Positive for arthralgias, back pain, joint swelling, myalgias, neck pain and neck stiffness. Negative for gait problem. Neurological: Positive for weakness and numbness. Negative for headaches. Psychiatric/Behavioral: Positive for sleep disturbance. Negative for dysphoric mood and suicidal ideas. The patient is not nervous/anxious.[facility]03-31-2023 Miscellaneous Notes* Telephone Encounter - Jessica Daly APRN.CNP - 01/23/2023 8:54 AM EDTSummary: Armodafinil The following approved medication requests have been transmitted electronically. Requested Prescriptions Signed Prescriptions Disp Refills armodafinil (NUVIGIL) 250 mg tab 30 tablet 0 Sig: Take 1 tablet by mouth once daily for 30 days. Authorizing Provider: JESSICA DALY APRN.CNP PDMP website checked and validated. All prescriptions have been APPROPRIATELY filled. No suspiciousactivity was identified. 01/23/2023 by Jessica Daly APRN.CNP * Telephone Encounter - Naomy Willis MA - 01/23/2023 6:48 AM EDT Physician: No primary care provider on file. Call from pharmacy requesting refill. Please E-Scribe Last OV: 08/08/2022 Future OV: Visit date not found Requested Prescriptions Pending Prescriptions Disp Refills armodafinil (NUVIGIL) 250 mg tab 30 tablet 5 Sig: Take 1 tablet by mouth once daily for 30 days. Pharmacy has been captured: Yes Naomy Willis MA documented in this encounterLutheran Hospital11-10-2022 Instructions* Patient Instructions* Tootie Rodney APRN.CNP - 09/04/2022 1:13 PM EST Activity as tolerated Use Ice and/or heat as tolerated as needed documented in this encounterLutheran Hospital11-10-2022 History of Present illness Narrative* Tootie Rodney APRN.CNP - 09/04/2022 12:52 PM EST AMBULATORY TELEPHONE VISIT Jess Meeks has consented to this telephone encounter. Persons Present: patient Chief Complaint/Reason: Injection Follow up HPI: Patient underwent RFA LEFT C3/4, C4/5 on 08/05/[address] Rowland. She was scheduled for RFA RIGHT C3/4, C4/5, however she cancelled the second injection. She was not sure if she needed it. Reports she has a lot of achiness near the injections sites and neck in general. Patient reports minimal relief from the injection thus far. Reports most of her pain is at the base of her neck. Deniesbowel or bladder changes, no radicular symptoms or weakness. Today the patient rates her pain 4/10, describes pain as constant achy pain. Denies new or worsening concerns today. Ht 165.1 cm (5' 5) Wt 91.2 kg (201 lb) LMP 03/30/2011 BMI 33.45 kg/m AG SPINE COMBINATION 05/28/2022 Questionnaire Opiod Risk Tool Completed Date 05/28/2022 Comments 4 Data Reviewed: Most recent imaging Assessment: (M47.812) Cervical spondylosis (primary encounter diagnosis) (G44.86) Cervicogenic headache (G89.29) Other chronic pain Patient reports minimal relief meaningful pain relief after LEFT sided cervical RFA at the levels detailed above. Plan: Patient presents for TV for Cervical RFA on the LEFT. Reports no relief since the RFA. She was scheduled for RIGHT sided cervical RFA, however she cancelled due to her increased pain and discomfort from the injection. She continues to have discomfort and aching near her injection sites. We will call in medrol dosepak for her acute pain and monitor her symptoms Medication use(s) and side effects reviewed with patient today with verbalized understanding. Advised to medrol with food and to avoid any NSAIDS while taking. If no improvement, new or worsening symptoms I recommend an updated OV to re- evaluate or she may proceed with RFA on the RIGHT side if she feels is needed. Patient is happy and agreeable with this plan. All questions were answered and patient verbalized understanding. Total Time Spent: 12 minutes Tootie Rodney APRN.SANDER HAND Review of Systems Constitutional: Negative for chills, fatigue, fever and unexpected weight change. HENT: Negative for congestion and sore throat. Eyes: Negative for visual disturbance. Respiratory: Negative for cough and shortness of breath. Cardiovascular: Negative for chest pain. Gastrointestinal: Negative for abdominal pain, constipation, nausea and vomiting. Genitourinary: Negative for decreased urine volume and difficulty urinating. Musculoskeletal: Positive for myalgias and neck pain. Negative for arthralgias and joint swelling. Skin: Negative for rash. Neurological: Negative for dizziness, light-headedness and headaches. Hematological: Does not bruise/bleed easily. Psychiatric/Behavioral: Negative for agitation, decreased concentration and sleep disturbance. The patient is not nervous/anxious. MRI Spine Report MRI CERVICAL SPINE WO CONTRAST Collected: 02/22/2014 8:51 AM (Final result) Narrative: See Link below for Image PDMP website checked and validated. No controlled substance prescriptions were reported. 09/04/2022y Tootie Rondey APRN.SANDER HAND documented in this encounterLutheran Hospital10-18-2022 Miscellaneous Notes* Telephone Encounter - Serafin Hartman RN - 08/12/2022 12:32 PM EDT Faxed pressure change order and last office visit notes to: DME name: [facility] - ([place]-P; F: ), ([place]-P: F: [phone]), ([place]-P: F: ) Fax confirmation received electronically. Patient notified via [employer] message documented in this encounterLutheran Hospital10-16-2022 Instructions* Patient Instructions* Jessica Daly APRN.TYSON - 08/10/2022 9:57 AM EDT PAP Supply Guidelines Below are the guidelines for reordering your supplies. You will be responsible for your deductible,co-payments, and out of pocket expenses. Item Medicare & Commercial Insurance Medicaid & HCAP Nasal Mask (no headgear) 1 every 3 months 1 per year Nasal Mask Cushion 1 every month 2 per year Full Face Mask (no headgear) 1 every 3 months 1 per year Full Face Mask Cushion 1 every month *Self-Pay Nasal Pillows 2 every month 2 per year Headgear 1 every 6 months 1 per year Chin Strap 1 every 6 months 2 per year Tubing 1 every 3 months 1 per year Filters: Reusable 1 every 6 months 4 per year Filters: Disposable 2 every month 1 per month Humidifier Chamber(disposable) 1 every 6 months *Self-Pay documented in this encounterLutheran Hospital10-14-2022 History of Present illness Narrative* Jessica Dlay APRN.CNP - 08/08/2022 3:00 PM EDT Images from the original note were not included. [facility] Follow up/ Established patient visit Date of last visit : 09/30/2021 Per last visit: Assessment and Plan: ASSESSMENT/PLAN: 1. Obstructive sleep apnea - ICD9: 327.23, ICD10: G47.33 (primary diagnosis) Doing well with PAP except for some mask fit issues. Will refer to DME for mask fit. In addition, will order new Auto-PAP device given that pt's providing message that it is in need of replacement. Reminded to clean and replace equipment regularly. 2. RLS (restless legs syndrome) - ICD9: 333.94, ICD10: G25.81 3. PLMD (periodic limb movement disorder) - ICD9: 327.51, ICD10: G47.61 Continue gabapentin 600 to 900mg with dinner. Refills provided. Reviewed SE and ADRs. 4. Hypersomnia - ICD9: 780.54, ICD10: G47.10 Doing well on Nuvigil 250mg that pt takes as 1/4 to 1/2 tablet QAM. SE and ADRs reviewed with pt. Refills provided. Advised pt not to drive or operate heavy machinery when sleepy. Charles Cervantes MD I spent a total of 35 minutes on the date of the service which included preparing to see the patient, [id number] patient care, completing clinical documentation, obtaining and/or reviewing separately obtained history, performing a medically appropriate examination, counseling and educating the pat ient/family/caregiver, ordering medications, tests, or procedures, independently interpreting results (not separately reported) and communicating results to the patient/family/caregiver. PDMP website checked and validated. All prescriptions have been APPROPRIATELY filled. No suspiciousactivity was identified. 09/30/2021 by Charles Cervantes MD Interval history : Last in person visit with Dr. Cervantes on 09/30/2021. She got her new ResMed AirViewAirSense 11 AutoSet device. Able to use the [facility] on her Cellular Phone Here for follow up for KAVON (PAP), RLS, PLMD (GBPN), Hypersomnia (Nuvigil). SLEEP APNEA Sleep apnea type : KAVON Most Recent Apnea-Hypopnea Index (AHI): 7 Treatment : PAP therapy DME: [employer] PAP History: Uses AutoPAP for 7-8 hours per night, 7 nights per week. Current PAP settin- 15 cm H2O. Difficulties with AutoPAP: No problems with PAP machine. Reviewed objective PAP compliance data: 05/10/22-08/07/22 ResMed Air View AirSense 11 AutoSet Usage days 74/90 days (82%) >= 4 hours - 74 days (82%) Average # hours nights used - 7 hours 33 minutes Pressure 95% - 14.3, Median: 10.6; Maximum: 14.7 Average time in large leak per day - 8.4 L/min Residual AHI - 1.9 ResMed MyAir Sleep Report 07/09/22- 08/07/22 Usage 30 (100%) >= 4 hours - (100%) >= 6 hours - (86.67%) Average # hours nights used - 7 hours 25 minutes Average time in large leak per day - 10.12 L/min Residual AHI - 1.67 Mask type: Nasal masks Mask issues: Air leak and improper mask fit, swivels at top of head annoying her, blowing up into her eyes, straps rubbing and bothering her hair in the back of her head. Uses chin strap: No Uses ramp function: No Uses humidity: Yes, Protocol: Distilled water, heated tubing. There is a perceived benefit by the patient: If mask not fitting her correctly, may start snoring and wake up with a raw throat. Side sleeper. Observers abolition of snoring and respiratory events with AutoPAP use if fitting correctly. Doing well with PAP except for some mask fit issues. Will refer to DME for mask fit. RLS Current treatment : GBPN 600 to 900 mg with dinner. No creepy crawly sensations. When bothering her, she feels the need to be stretching them.Feels that she Status : same Time of day symptoms begin : Bedtime Time of day symptoms are worst : Bedtime Time of day when symptom-free : Morning, Afternoon, Evening. RLS/PLMD Continue Gabapentin 600 to 900 mg with dinner. Refills provided. Reviewed SE and ADRs. HYPERSOMNIA Doing well on Nuvigil 250 mg, but she is now taking has 1/2 tablet BID. Needing to take a whole tablet 3-4 X/week. Will skip weekends. Previously only needing to take 1/4 tab QAM and then again in afternoon. No SE and ADRs. Advised pt not to drive or operate heavy machinery when sleepy. SLEEP HYGIENE QUESTIONS: Bedtime : 5129-3961 Wake up Time : 0600 Taking Melatonin 5 mg at bedtime. Time it takes to fall sleep : 15-60 minutes Activities in bed before falling asleep : TV Number of times patient wakes up per night : 1 Reason (s) why patient wakes up during the night : Void Estimated total sleep time ( in a 24 hour period of time) : 7-8 Naps : Yes, 2 hours, feels better afterwards PATIENT-ENTERED QUESTIONNAIRE SLEEP SCORES Sleep Questions 08/08/2022 Reason for visit: Difficulty falling or staying asleep or poor sleep quality, Excessive daytime sleepiness, Abnormal sleep/wake timing, Abnormal behaviors/movements during sleep Average hours slept in 24 hours: 6 Average hours of CPAP per night: 6 Percent of nights CPAP used at least 4 hours: 100 Accidents or near accidents due to drowsy drivin [place] Sleepiness Scale 01/07/2021 09/28/2021 08/08/2022 Score 5 (No daytime sleepiness) 3 (No daytime sleepiness) 2 (No daytime sleepiness) PROMIS CAT Sleep Disturbance 01/07/2021 09/28/2021 08/08/2022 PROMIS Sleep Disturbance T-Score 45 (within normal limits) 46 (within normal limits) 61 (moderate) Insomnia Severity Index 08/08/2022 Score 14 Restless Leg Syndrome 01/07/2021 09/28/2021 08/08/2022 Score 10 9 12 PHQ-9 01/07/2021 09/28/2021 08/08/2022 Score 5 3 7 PROMIS Global Health - (T-Scores - the mean of general population = 50. Five points is a clinicallymeaningful difference.) 01/07/2021 09/28/2021 08/08/2022 Physical T-Score 44.9 44.9 44.9 Mental T-Score 43.5 56 41.1 PMH, PSH, SH: Reviewed SLEEP RELATED ROS Review of Systems Constitutional: Positive for fatigue. Respiratory: Negative. Cardiovascular: Negative. Genitourinary: Positive for nocturia. ALLERGIES Allergen Reactions Atorvastatin Myalgia Muscle aches; resolved after stopped statin Naproxen Hives Naproxyn [Naproxen] Hives Pravastatin Myalgia Did not tolerate Restasis [Cyclospor* Other: See Comments Burning and redness in the eyes Seasonal Allergies Other: See Comments Wellbutrin Xl [Bupr* Zoloft [Sertraline] Diarrhea Ibuprofen Rash CURRENT MEDICATIONS: atomoxetine (STRATTERA) 40 mg capsule Cetirizine 10 mg cap Take by mouth. CPAP AutoPAP 5-15 cmH2O with humidification and mask fitting (possible dreamwear of wisp). Lifetimesupplies. Note pt compliant with current device but machine reporting device beyond motor hours. diclofenac, EC, (VOLTAREN) 75 mg EC tablet Take 1 tablet by mouth twice daily as needed (for pain.). nabumetone (RELAFEN) 500 mg tablet Take 1 tablet by mouth once daily. cyclobenzaprine (FLEXERIL) 10 mg tablet Take 1 tablet by mouth three times daily as needed for muscle spasm. CPAP Needs new DME for insurance. Also needs supplies and new CPAP mask - current nasal pillows falling out of nose (fx mary ann) and dreamwear was rubbing hair out). Lifetime supplies. lisinopril (ZESTRIL, PRINIVIL) 20 mg tablet Take 20 mg by mouth twice daily. metFORMIN ER (GLUCOPHAGE XR) 500 mg 24 hr tablet twice daily. loratadine (CLARITIN) 10 mg tablet Take 10 mg by mouth once daily. txrhpar-enwkuzemc-sgjourm D3 500 mg-5 mcg (200 unit) per tablet Take 1 tablet by mouth twice daily with meals. polyethylene glycol 3350 (MIRALAX, GLYCOLAX) 17 gram/dose powder Take by mouth once daily. CPAP Patient on PAP therapy. Needs supplies. Lifetime supplies. Please provide download from PAP ifpossible. Minocycline HCl 50 mg tablet TAKE 1 PILL DAILY FOR 10 DAYS ONLY DURING FLARES estradiol (ESTRACE) 0.01 % (0.1 mg/gram) vaginal cream APPLY A PEA SIZE AMOUNT OF CREAM TO FINGER AND LUBRICATE VAGINAL TISSUE 3 TIMES WEEKLY DULoxetine (CYMBALTA) 60 mg capsule Take 1 capsule by mouth once daily. rosuvastatin (CRESTOR) 5 mg tablet Take 1 tablet by mouth daily at bedtime. As directed oxybutynin ER (DITROPAN XL) 10 mg 24 hr tablet TAKE 1 TABLET BY MOUTH 1 TIME PER DAY SE WERE DISCUSSED INCLUDING DRY MOUTH AND CONSTIPATION ascorbic acid (VITAMIN C ORAL) Take by mouth. UBIDECARENONE (CO Q-10 ORAL) Take by mouth. PYRIDOXINE HCL, VITAMIN B6, (VITAMIN B-6 ORAL) Take by mouth. CYANOCOBALAMIN, VITAMIN B-12, (VITAMIN B-12 ORAL) Take by mouth. Cholecalciferol, Vitamin D3, 2,000 unit cap Take 1 tablet by mouth twice daily. Multivitamin capsule Take 1 capsule by mouth once daily. ZINC ORAL Take by mouth. triamcinolone acetonide 0.1 % cream Apply 1 application to affected area twice daily. Apply to affected area for rash. Ibuprofen 200 mg ORAL Cap Take by mouth every 4 hours as needed. FOR PAIN. armodafinil (NUVIGIL) 250 mg tab Take 1 tablet by mouth once daily for 30 days. gabapentin (NEURONTIN) 300 mg capsule Take 2-3 caps nightly as instructed. Prior Hypersomnia/Narcolepsy Medications (20 years) Some values may be hidden. Unless noted otherwise, only the newest values recorded on each date aredisplayed. Hypersomnia/Narcolepsy Medications armodafinil (NUVIGIL) 250 mg tab Dose: Starting date: 07/04/2017 Ending date: 09/01/2017 (Discontinued) armodafinil (NUVIGIL) 250 mg tab Dose: 250 mg DAILY Starting date: 09/01/2017 Ending date: 03/20/2018(Discontinued) armodafinil (NUVIGIL) 250 mg tab Dose: TAKE 1 TABLET EVERY DAY Starting date: 03/24/2018 Ending date: 06/23/2018 (Discontinued) armodafinil (NUVIGIL) 250 mg tab Dose: 250 mg DAILY Starting date: 06/23/2018 Ending date: 11/16/2018(Discontinued) armodafinil (NUVIGIL) 250 mg tab Dose: 250 mg DAILY Starting date: 11/16/2018 Ending date: 07/25/2019(Discontinued) armodafinil (NUVIGIL) 250 mg tab Dose: 250 mg DAILY Starting date: 07/25/2019 Ending date: 09/20/2019 (Discontinued) armodafinil (NUVIGIL) 250 mg tab Dose: 250 mg DAILY Starting date: 09/20/2019 Ending date: 04/12/2020 (Discontinued) armodafinil (NUVIGIL) 250 mg tab Dose: 250 mg DAILY Starting date: 04/12/2020 Ending date: 07/20/2020(Discontinued) armodafinil (NUVIGIL) 250 mg tab Dose: 250 mg DAILY Starting date: 07/20/2020 Ending date: 01/07/2021(Discontinued) armodafinil (NUVIGIL) 250 mg tab Dose: 250 mg DAILY Starting date: 01/07/2021 Ending date: 09/30/2021(Discontinued) armodafinil (NUVIGIL) 250 mg tab Dose: 250 mg DAILY Starting date: 09/30/2021 Ending date: 03/04/2022(Discontinued) armodafinil (NUVIGIL) 250 mg tab Dose: 250 mg DAILY Starting date: 03/04/2022 Ending date: 05/06/2022(Discontinued) armodafinil (NUVIGIL) 250 mg tab Dose: 250 mg DAILY Starting date: 05/06/2022 Ending date: 08/01/2022(Discontinued) armodafinil (NUVIGIL) 250 mg tab Dose: 250 mg DAILY Starting date: 08/01/2022 Ending date: 08/08/2022 (Discontinued) armodafinil (NUVIGIL) 250 mg tab Dose: 250 mg DAILY Starting date: 08/08/2022 Ending date: 09/07/2022 atomoxetine (STRATTERA) 40 mg capsule Dose: Starting date: 07/29/2022 (active) modafinil (PROVIGIL) 200 mg tablet Dose: 200 mg DAILY Take 1/2 tablet daily as needed Starting date: Ending date: 05/22/2016 (Discontinued) modafinil (PROVIGIL) 200 mg tablet Dose: 100-200 mg DAILY As directed Starting date: 05/22/2016 Ending date: 07/21/2017 (Discontinued) Medication marked as long-term Prior RLS Medications (last 20 years) Some values may be hidden. Unless noted otherwise, only the newest values recorded on each date aredisplayed. RLS Medications BELLADONNA ALKALOIDS-OPIUM 16.2 MG-30 MG RECTAL SUPPOSITORY Dose: Insert rectally one hour prior tooffice procedure Starting date: 07/14/2008 Ending date: 07/14/2008 (Discontinued) ULTRAM 50 MG TAB Dose: Take one (1) or two(2) tablets every six(6) hours as needed for pain. Starting date: 01/26/2006 Ending date: 03/04/2006 (Discontinued) Prior Insomnia Medications (last 20 years) Some values may be hidden. Unless noted otherwise, only the newest values recorded on each date aredisplayed. Insomnia Medications alprazolam(XANAX 2 MG TAB) Dose: 1 PO upon arrival to office one hour prior to beginning procedure Starting date: 07/14/2008 Ending date: 07/14/2008 (Discontinued) AMBIEN 10 MG TAB Dose: Take one half or (1) tablet daily at bedtime as needed for sleep. Starting date: 02/18/2006 Ending date: 07/20/2006 (Discontinued) AMBIEN 10 MG TAB Dose: Take one half or (1) tablet daily at bedtime as needed for sleep. Starting date: 07/20/2006 Ending date: 01/25/2007 (Discontinued) AMBIEN 10 MG TAB Dose: Take one half or (1) tablet daily at bedtime as needed for sleep. Starting date: 01/25/2007 Ending date: 03/26/2007 (Discontinued) zolpidem (AMBIEN) 10 mg ORAL Tab Dose: Take one half or (1) tablet daily at bedtime as needed for sleep. (May substitute with generic equivalent.) Starting date: 03/26/2007 Ending date: 10/15/2007 (Discontinued) PHYSICAL EXAMINATION: Vital Signs: BP 120/68 (BP Site: Left Arm, BP Position: Sitting, BP Cuff Size: Regular Adult) Pulse 84 Ht 165.1 cm (5' 5) Wt 91.2 kg (201 lb) LMP 03/30/2011 SpO2 97% BMI 33.45 kg/m PHYSICAL EXAM: Constitutional: Appearance: Well groomed. Well nourished female. Very pleasant. Skin: General: Warm, dry, intact. Neurological: General: No focal deficit present. Mental Status: A&OX3 (person, place, and time). Speech: Clear, projects well. Memory: Intact, responses appropriate. Psychiatric: Mood and Affect: Mood normal. Behavior: Behavior normal IMPRESSION: Diagnosis: Kavon (obstructive sleep apnea) (primary encounter diagnosis) Rls (restless legs syndrome) Plmd (periodic limb movement disorder) Hypersomnia Long-term current use of stimulant Sleep Studies (Reviewed Prior and Current): A Home Sleep Test (HST) performed on 12/01/2012 revealed at least mild KAVON (AHI of 7) that was associated with a minimum oxygen saturation of 79%. Assessment/Plan: Ms. Jess Porter is a 56 year old male with a PMH of Myalgia, Cervicalgia, EDS, PLMD, HPL, HTN, DMII, Allergic Rhinitis, Depressive Disorder presents for KAVON (PAP), RLS, PLMD (GBPN), Hypersomnia (Nuvigil). 1. Obstructive sleep apnea - ICD9: 327.23, ICD10: G47.33 (primary diagnosis) -Doing well with PAP except for mask fit issues. -Will refer to DME for mask refitting. -Will ask DME to reset PAP pressure from 5-15 cmH20 to 5-18 cmH20. -Reminded to clean and replace equipment regularly. 2. RLS (restless legs syndrome) - ICD9: 333.94, ICD10: G25.81 3. PLMD (periodic limb movement disorder) - ICD9: 327.51, ICD10: G47.61 -Continue gabapentin 600 to 900mg with dinner. Refills provided. Reviewed SE and ADRs. 4. Hypersomnia - ICD9: 780.54, ICD10: G47.10 -Doing well on Nuvigil 250 mg that pt takes as 1/4 to 1/2 tablet QAM up to 1/2 tablet BID. SE and ADRs reviewed with pt. Refills provided. Advised patient not to drive or operate heavy machinery whensleepy - Urine tox screen done. - Complete ECG done. H/o Spinal cord stimulator implant. Patient in quite a bit of discomfort during office visit. Hands on rails when ECG performed. See vibration on ECG, two attempts to get. Reviewed with patient. Regular rate and rhythm at 83 bpm. 5. Office visits. Six months with me virtually. Then six months in person with Dr. Charles Cervantes [facility]. If you have questions, feel free to send me a [employer] message. I spent a total of 30 minutes as this was a new patient to me on the date of the service which included preparing to see the patient, cuko-uw-dwjj patient care, completing clinical documentation, counseling and educating the patient/family/caregiver and ordering medications, tests, or procedures. Jessica Daly APRN.[employer] The following approved medication requests have been transmitted electronically. Requested Prescriptions Signed Prescriptions Disp Refills armodafinil (NUVIGIL) 250 mg tab 30 tablet 5 Sig: Take 1 tablet by mouth once daily for 30 days. gabapentin (NEURONTIN) 300 mg capsule 90 capsule 5 Sig: Take 2-3 caps nightly as instructed. Jessica Daly APRN.CNP PDMP website checked and validated. All prescriptions have been APPROPRIATELY filled. No suspiciousactivity was identified. 08/08/2022 by Jessica Daly APRN.CNP documented [facility]22 Miscellaneous Notes* Telephone Encounter - Michel Singh LPN - 08/07/2022 4:08 PM EDT A follow up phone call attempted and patient was unavailable at this time. If a voicemail box was available, a message for a return phone call was left if there were any questions or concerns relatedto a recent procedure that was performed at [facility]. This message did not include any HIPAA related information. documented in this encounterLuther[facility]10-11-2022 Instructions* Patient Instructions* Josie Reina LPN - 08/05/2022 1:46 PM EDT PROCEDURE DISCHARGE INSTRUCTIONS 08/05/2022 Jess Meeks 1965 Physician: Yung Rowland MD Procedure: Facet Joint Branch Radiofrequency Denervation Post Procedure Instructions: If sedation not given, no driving for 3 hours after the procedure., Rest the day of the procedure.,You may resume normal activities the day after the procedure, as tolerated., Avoid movements that may aggravate pain., Apply cold compresses to injection site if needed., If medically acceptable, take over the counter anti-inflammatories such as ibuprofen or Aleve if needed for post procedure discomfort., No hot baths, hot tubs or hot compresses for 24 hours., Increased pain the day after the procedure may occur., and Your pain should subside in the next 4-6 weeks. If you have any of the following signs or symptoms, please call our office at Fever and/or chills Swelling and/or drainage from injection site New pain that is different than your normal pain (other than soreness at the site of the procedure) Stiff neck Shortness of breath Severe increase in pain Motor dysfunctions, such as difficulty walking, bowel or bladder dysfunction and/or incontinence Headache that is severe, light sensitive or develops when changing positions (positional headache) Nausea and/or vomiting accompanied by headache that started 24-48 hours after the procedure If you have any emergent concerns, please call 911 or go to your local emergency room. Please also contact our office to let us know you will be seeking emergency care and why. documented in this encounterLuther[facility]10-11-2022 Nurse Note* Josie Reina LPN - 08/05/2022 1:44 PM EDT Order has been placed in the patient's chart with the following parameters for discharge from the physician: Patient is alert and oriented Vitals: Diastolic/Systolic +/- 20mmHg Respirations: 12-18 Pulse: 60-100 SpO2 is greater than or equal to 90% Patient has no nausea or vomiting Patient has no dizziness Pain level is +/- 2 from initial evaluation Dressing, dry and intact with no evidence of bleeding Criteria has been met, patient is okay to be discharged per the physician. Physician has gone in and evaluated the patient. Dressing dry and intact. No drainage noted. The patient denies nausea, numbness, tingling, weakness, shortness of breath, dizziness, or headache. Pain level 0/10. Vital signs within normal limits. Patient denied needing walked out by clinical staff and denied needing a wheelchair. Patient given discharge instructions and sent to transportation via ambulatory method. Patient left in good condition. * Rosa Sifuentes LPN - 08/05/2022 12:55 PM EDT Procedure to be performed: C3/4-C4/5 Unilateral Left Radiofrequency Ablation Patient was wheeled on stretcher from pre op bay to procedure room and assisted onto the procedure tablePatient s procedure was performed in an [facility] Procedure room. Pause completed at each level by provider to verify correct level and laterality placement Pressure was applied to patient s injection site(s) and bleeding was minimal. Patient had no complaint of shortness of breath, dizziness, headache, numbness, tingling, weakness or complications from procedure. Patient was assisted from the procedure table onto the stretcher and wheeled into a post op bay. Patient was advised a clinician will be to obtain another set of vitals. 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 Are you on a blood thinner: n If yes, is a hold required: n Last dose of blood thinner: n INR result today: n Do you require a Lovenox bridge: n Are you a diabetic: yes BS result today: 111 Are you/could you be : n Are you currently on an antibiotic: n Are you currently on a steroid: n Have you received a dose of the COVID vaccine in the last 14 days: n Did you bring any medication with you to use before this procedure: n - Angely New MA documented in this encounterL[facility]10-11-2022 History of Present illness Narrative* Angely New MA - 08/05/2022 1:02 PM EDT Review of Systems Constitutional: Negative for activity change, chills, fever and unexpected weight change. Gastrointestinal: Negative for bowel retention or incontinence Genitourinary: Negative for difficulty urinating. Negative for bladder retention or incontinence Musculoskeletal: Positive for back pain, myalgias, neck pain and neck stiffness. Negative for arthralgias, gait problem and joint swelling. Neurological: Negative for weakness, numbness and headaches. Psychiatric/Behavioral: Positive for dysphoric mood and sleep disturbance. Negative for suicidal ideas. The patient is nervous/anxious. * Yung Rowland MD - 08/05/2022 1:00 PM EDT [facility] HPI Jess Meeks is a 56 year old female who presents for left C3/4, C4/5 MB RFA. Review of Systems Per nursing documentation PAST MEDICAL HISTORY Diagnosis Date DEPRESSIVE DISORDER NEC 09/22/2006 Diabetes (HCC) Diffuse cystic mastopathy Excessive or frequent menstruation Heavy periods Fibroid uterus 04/14/2011 GERD (gastroesophageal reflux disease) HTN (hypertension) JOINT DISEASE DEGENERATIVE LBP (low back pain) Ocular rosacea [place] KAVON on CPAP Doing well on CPAP Rosacea 05/2013 PAST SURGICAL HISTORY Procedure Laterality Date ADENOIDECTOMY PRIMARY <AGE 12 Adenoidectomy CHOLECYSTECTOMY Cholecystectomy COLONOSCOPY 09/03/2020 repeat in [address] Rios COLONOSCOPY FLX DX W/COLLJ SPEC WHEN PFRMD 01/17/2015 Colonoscopy ENDOMETRIAL ABLTJ THERMAL W/O HYSTEROSCOPIC GUID 07/18/08 Thermachoice III EXPLORATION OF SPINAL FUSION L5 HYSTEROSCOPY, DIAGNOSTIC (SEPARATE Hysteroscopy HYSTEROSCOPY, DIAGNOSTIC (SEPARATE 06/22/2008 Hysteroscopy/D&C INSERT INTRAUTERINE DEVICE Mirena LAPS W/VAG HYSTERECT 250 GM/&RMVL TUBE&/OVARIES 05/08/11 LAVH/BSO LIG/TRNSXJ FLP TUBE ABDL/VAG APPR UNI/BI Tubal ligation PAST SURGICAL HISTORY OF 03/2014 Spinal cord stimulator implant REMOVE INTRAUTERINE DEVICE Mirena SLING OPER STRES INCONTINENCE 05/08/11 w/ cysto TVT-O TONSILLECTOMY PRIMARY/SECONDARY <AGE 12 Tonsillectomy Family History Problem Relation Age of Onset Diabetes Mother other (heart disease) Mother Coronary Artery Disease Father 55 bypass, Aortic aneurysm Hypertension Father No Known Problems Daughter Cancer Maternal Grandmother COLON CANCER No Known Problems Maternal Grandfather No Known Problems Paternal Grandmother No Known Problems Paternal Grandfather Cancer Sister HODGKINS Breast Cancer Maternal Aunt Breast Cancer Maternal Aunt Social History Tobacco Use Smoking status: Former Packs/day: 1.00 Years: 20.00 Pack years: 20.00 Types: Cigarettes Smokeless tobacco: Never Vaping Use Vaping Use: Never used Substance Use Topics Alcohol use: Yes Alcohol/week: 1.7 standard drinks Comment: rare Drug use: No Current Outpatient Medications Medication Sig Dispense Refill armodafinil (NUVIGIL) 250 mg tab Take 1 tablet by mouth once daily for 30 days. 30 tablet 0 gabapentin (NEURONTIN) 300 mg capsule Take 2-3 caps nightly as instructed. 90 capsule 0 CPAP AutoPAP 5-15 cmH2O with humidification and mask fitting (possible dreamwear of wisp). Lifetimesupplies. Note pt compliant with current device but machine reporting device beyond motor hours. 1 Each 99 diclofenac, EC, (VOLTAREN) 75 mg EC tablet Take 1 tablet by mouth twice daily as needed (for pain.). 60 tablet 2 nabumetone (RELAFEN) 500 mg tablet Take 1 tablet by mouth once daily. 60 tablet 2 cyclobenzaprine (FLEXERIL) 10 mg tablet Take 1 tablet by mouth three times daily as needed for muscle spasm. 90 tablet 3 CPAP Needs new DME for insurance. Also needs supplies and new CPAP mask - current nasal pillows falling out of nose (fx mary ann) and dreamwear was rubbing hair out). Lifetime supplies. 1 Device 99 lisinopril (ZESTRIL, PRINIVIL) 20 mg tablet Take 20 mg by mouth twice daily. metFORMIN ER (GLUCOPHAGE XR) 500 mg 24 hr tablet twice daily. loratadine (CLARITIN) 10 mg tablet Take 10 mg by mouth once daily. qgamvfk-wdtflgodq-smkygdh D3 (CALCIUM 500+D) 500 mg(1,250mg) -200 unit per tablet Take 1 tablet by mouth twice daily with meals. polyethylene glycol 3350 (MIRALAX) 17 gram/dose powder Take by mouth once daily. CPAP Patient on PAP therapy. Needs supplies. Lifetime supplies. Please provide download from PAP ifpossible. 1 Device 99 Minocycline HCl 50 mg tablet TAKE 1 PILL DAILY FOR 10 DAYS ONLY DURING FLARES 30 tablet 5 estradiol (ESTRACE) 0.01 % (0.1 mg/gram) vaginal cream APPLY A PEA SIZE AMOUNT OF CREAM TO FINGER AND LUBRICATE VAGINAL TISSUE 3 TIMES WEEKLY 2 DULoxetine (CYMBALTA) 60 mg capsule Take 1 capsule by mouth once daily. 30 capsule 11 rosuvastatin (CRESTOR) 5 mg tablet Take 1 tablet by mouth daily at bedtime. As directed 90 tablet 3 oxybutynin ER (DITROPAN XL) 10 mg 24 hr tablet TAKE 1 TABLET BY MOUTH 1 TIME PER DAY SE WERE DISCUSSED INCLUDING DRY MOUTH AND CONSTIPATION 3 ascorbic acid (VITAMIN C ORAL) Take by mouth. UBIDECARENONE (CO Q-10 ORAL) Take by mouth. PYRIDOXINE HCL, VITAMIN B6, (VITAMIN B-6 ORAL) Take by mouth. CYANOCOBALAMIN, VITAMIN B-12, (VITAMIN B-12 ORAL) Take by mouth. Cholecalciferol, Vitamin D3, 2,000 unit cap Take 1 tablet by mouth twice daily. Multivitamin capsule Take 1 capsule by mouth once daily. ZINC ORAL Take by mouth. triamcinolone acetonide 0.1 % cream Apply 1 application to affected area twice daily. Apply to affected area for rash. 30 g 0 VITAMIN B COMPLEX (B COMPLEX ORAL) Take 1 tablet by mouth once daily. Ibuprofen 200 mg ORAL Cap Take by mouth every 4 hours as needed. FOR PAIN. 0 No current facility-administered medications for this visit. Attestation Information obtained by others were confirmed and edited as necessary on 08/05/2022 by Yung Rowland MD. Objective Exam: There were no vitals taken for this visit. Constitutional: normal appearance, A&O x3 Head: atraumatic, normocephalic Eyes: conjunctiva clear. Cardiovascular: appears well-perfused Pulmonary: non-labored Abdominal: non-distended Skin: no visible rashes or ecchymosis Psychiatric: mood appropriate Neurological: no focal deficits Assessment and Plan: We discussed their current plan and the pathology responsible for the patient's pain. Specific counseling related to the procedure was provided regarding the risks, benefits and alternatives. The patient wishes to proceed with the plan as follows: No diagnosis found. Time out to confirm patient name, date of , procedure site, laterality, and allergies performed by physician. Please see nursing note for exact times (time out, procedure start, procedure end). [place] protocol documentation / Pre-Procedure checklist: Unless stated otherwise in the procedure note, the risks include but are not limited to infection, allergic reaction, increased pain, lack of therapeutic benefit, steroid reaction, nerve damage, paralysis, stroke, epidural hematoma, syncope, headache, respiratory or cardiac arrest, pneumothorax, and scar formation Time Out was led by the physician in the procedure room, with the patient and all staff present andparticipating The following information was verified: name, date of , procedure site (marked), laterality, anticoagulants and allergies UNIVERSAL PROTOCOL / SAFETY CHECKLIST Sign In: A Moment of CARE was completed. Personnel directly involved with the procedure wore the appropriate PPE (Personal Protective Equipment). Patient/Surrogate Stated/Verified: patient name, date of , relevant allergies and intended procedure Time Out Communication: Intended patient and procedure match the source documents. Consent documented and matches the intended procedure. Sign Out: SIGN OUT (optional for EMERGENT procedures): No specimen collected. Yung Rowland MD [facility] [facility] documented in this [facility] Procedure note* Yung Rowland MD - 08/05/2022 1:00 PM EDT PROCEDURE: LEFT C3-C4 and C4-C5 FACET MEDIAL BRANCH RADIOFREQUENCY ABLATION DIAGNOSIS: Cervical spondylosis (primary encounter diagnosis) DESCRIPTION OF PROCEDURE: The patient was brought to the procedure room and positioned in the prone position. The area of thecervical spine was prepped with ChloraPrep and draped into a sterile field. Fluoroscopy was used toidentify the presumed location of the medial branch nerves at the midpoint of the waist of the articular pillars. Skin anesthesia was achieved using 3 ml of Lidocaine 2% over the 3 injection sites. A22 gauge, 100 mm (5mm active tip) curved RF needle was slowly inserted at each level using AP, lateral and oblique fluoroscopic imaging. Negative aspiration for blood or CSF was confirmed. At each level, motor stimulation at 2Hz up to 2.0V did not cause any radicular symptoms. A 2cc of 2% lidocainewas used at each level to anesthetize prior to initiation of treatment. Radiofrequency lesioning was performed for 90 seconds at 90 degrees Celsius x2 at each level. At the conclusion of the procedure, a solution containing 2cc of 0.5% bupivacaine and 10mg of decadron was made and injected in equaldivided doses at 3 sites. The needles were removed and bleeding was nil. A sterile dressing was applied. The procedure was completed without complications and was tolerated well. The patient was monitoredafter the procedure. The patient (or responsible republican) was given post-procedure and discharge instructions to follow at home. The patient was discharged in stable condition. A follow up appointment was made. Please see the nursing note for exact times (time out, procedure start, procedure end). documented in this [facility]10-07-2022 Miscellaneous Notes* Telephone Encounter - Anabell Rodriguez APRN.TYSON - 08/01/2022 4:[address] [facility] website checked and validated. All prescriptions have been APPROPRIATELY filled. No suspiciousactivity was identified. 08/01/2022 by Anabell Rodriguez APRN.SANDER HAND documented in this [facility]10-05-2022 Miscellaneous Notes* Telephone Encounter - Marah Jacobo - 07/30/2022 2:55 PM EDT FYI DONALD: 01/07/21 Virtual visit NOV: 08/08/22 in-person The patient requires an appointment before refill. documented in this [facility]09-29-2022 Miscellaneous Notes* Telephone Encounter - Marah Mason Pss - 07/24/2022 10:14 AM EDT I called the patient and scheduled her an appointment. The patient 's OON referral expires on 08/17/22 and the patient needs seen before. documented in this [facility]08-11-2022 Instructions* Patient Instructions* Tootie Rodney APRN.SANDER HAND - 06/05/2022 2:19 PM EDT [facility] What is it? Facet joint and sacroiliac joint denervation (also called rhizotomy, ablation, neurotomy or neurolysis) uses radiofrequency energy to temporarily interrupt or destroy the nerve that carries pain signals from the facet (zygapophyseal) joint or sacroiliac joint. The nerve branches from the facet joints are called the medial branches and the nerve branches from the sacroiliac joints are called the lateral branches. Each facet joint receives input from the two medial branches and each sacroiliac joint receives input from four lateral branches. Prior to performing a radiofrequency procedure, an injection of short-acting anesthetic (numbing medication) is injected to achieve short-term pain relief. If significant short-term pain relief is seen with the anesthetic, then a patient may be a candidate for the radiofrequency denervation procedure. Who should get radiofrequency denervation? The procedures are typically ordered for patients who have gotten significant short-term pain relief from facet joint medial branch injections and sacroiliac joint injections but have failed to get long-term improvement from these injections. How long does the injection take? Typically the radiofrequency ablation takes about one hour to perform, but expect to spend 15-20 minutes at our facility due to preparation time before the procedure and evaluation after the procedure. What are the risks of radiofrequency ablation? With all injections there is a risk of infection, bleeding, temporary increase in pain and injury to the structures along the course of the needle or injury to other nerve branches by the radiofrequency probe. By using sterile equipment and technique we minimize the Risk of infection. The risk of bleeding is minimized by discontinuation of blood thinners (this typically requires approval from theprescribing doctor) and non-steroidal anti-inflammatory medications (except Celebrex). By using X-ray guidance (fluoroscopy) we minimize the risk of injury to the structure along the course of the needle. The sensory and motor stimulation reduce the risk of injury to other nerves. Who should NOT have this injection? If you have an active infection, poorly controlled hypertension, diabetes, congestive heart failureor are unable to stop taking blood thinners, you may not be a candidate for these types of injections. documented in this encounterL[facility]08-11-[facility]22 History of Present illness Narrative* Tootie Rodney APRN.TYSON - 06/05/2022 2:16 PM EDT AMBULATORY TELEPHONE VISIT Jess Meeks has consented to this telephone encounter. Persons Present: patient Chief Complaint/Reason: Neck Pain HPI: Patient was last seen in the office on 05/28/22. Reports she had concerns about having cervical ablation bilaterally. Patient reports that the left side of her neck is typically the more problematic side. She does not have much pain on the right side. In the past she has had just left-sided cervical RFA and this is giving her adequate relief bilaterally. Patient is scheduled for cervical RFA, LEFT then [place] [address] Rowland. Denies radicular symptoms, no new or worsening symptoms or concerns since her last office evaluation Today she rates her pain 1-2/10, intermittent dull ache. Tylenol is helpful. Ht 165.1 cm (5' 5) Wt 91.6 kg (202 lb) LMP 03/30/2011 BMI 33.61 kg/m AG [facility] 05/28/2022 Questionnaire Opiod Risk Tool Completed Date 05/28/2022 Comments 4 Data Reviewed: None today. Assessment: (M47.812) Cervical spondylosis (primary encounter diagnosis) (M54.2, G89.29) Chronic cervical pain Patient presents via telephone visit to discuss upcoming cervical RFA Plan: Patient reports typically she is only had the left sided ablation completed of her cervical spine and this provides her adequate pain relief on both the left and the right side of her neck. She is scheduled for bilateral cervical RFA left then right. I advised patient that it is okay to proceed with left side only and if needed we could pursue ablation on the right side. Patient is happy with this option and would like to cancel the right-sided cervical RFA. I will notify our schedulers will proceed with left side only and will reevaluate if she needs the right side at her follow-uppostinjection. She will continue [id number] Tylenol as needed for pain relief. Patient is happy and agreeable with this plan. All questions were answered and patient verbalized understanding. Total Time Spent: 11 minutes Tootie Rodney APRN.SANDER HAND Review of Systems Constitutional: Negative for chills, fatigue, fever and unexpected weight change. HENT: Negative for sore throat. Eyes: Negative for visual disturbance. Gastrointestinal: Negative for abdominal pain, constipation, nausea and vomiting. Musculoskeletal: Positive for neck pain. Negative for joint swelling. Skin: Negative for rash. Neurological: Negative for dizziness, light-headedness and headaches. Hematological: Does not bruise/bleed easily. Psychiatric/Behavioral: Negative for sleep disturbance. MRI Spine Report MRI CERVICAL SPINE WO CONTRAST Collected: 02/22/2014 8:51 AM (Final result) Narrative: See Link below for Image PDMP website checked and validated. All prescriptions have been APPROPRIATELY filled. No suspiciousactivity was identified. 06/05/2022 by Tootie Rodney APRN.CNP documented in this encounterLuther[facility]08-03-2022 Miscellaneous Notes* Telephone Encounter - Zuly Holguin - 05/28/2022 8:54 AM EDT 1.Are you diabetic Yes. Please list the current medications being prescribed - METFORMIN. 2. Are you on any blood thinners? No 3. Are you taking any aspirin? No 4. Have you had any recent imaging done on your body part that's being injected? No 5. Do you have any allergies to latex? No 6. Do you have any allergies to seafood? No 7. Do you have any allergies to shellfish? No 8. Do you have any allergies to x-ray dye? No 9. Are you taking Xanax for the procedure? No 10. Have you done physical therapy in the last year? No If yes, When and Where? (Medical Records Release needs to be signed.) 11. Were the pre-procedure instructions explained to the patient? Yes 12. Do you have a pacemaker? No 13. Do you have an internal stimulator of any kind? Yes If yes, please bring the remote with you to your procedure visit. 14. Have you received the COVID-19 Vaccine? Yes. If yes, date(s) received: 07/2021 (Patient should not receive a procedure including steroids 14 days prior to their first dose of theCOVID vaccine. They should not receive any procedure containing steroids in the time frame between their 1st and 2nd doses of the COVID vaccine. They should not receive a procedure containing steroids 14 days after their 2nd dose of the COVID vaccine.) Zuly Holguin documented in this encounterL[facility] Hospital08-03-2022 Instructions* Patient Instructions* Tootie Rodney APRN.TYSON - 05/28/2022 8:50 AM EDT Activity as tolerated Use Ice and/or heat as tolerated as needed documented in this encounterLutheran Hospital08-03-2022 History of Present illness Narrative* Tootie Rodney, 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.SANDER HAND - 05/28/2022 8:30 AM EDT Images from the original note were not included. [facility] Today's Date: 05/27/2022 Last Visit: 12/13/[address] Rowland Name: Jess Meeks : 1965 Purpose: Established Patient Encounter Interval History: Since last encounter, Jess Meeks; PMH significant for diffuse cystic mastopathy, fibroids, HTN, DJD, LBP, KAVON on CPAP, cervicalgia, T2DM, lumbar spinal fusion c/b post-laminectomy syndrome; reports that the chronic problem(s) of neck and low back pain are Worse. Reports she has excellent relief of her neck pain with cervical RFA, typically at least 6 months. Denies changes in her pain pattern. Last OV Cervical RFA B/L C3/4, C4/5, C5/C6 (LEFT then RIGHT) were ordered, she did not schedule as she was doing well at that time. Pain Description: o Timing: intermittant o Character: Aching and Dull o Primary Location: Neck pain o Radiation: None o Exacerbating factors: unable to pinpoint exacerbating factors/positions and activity or weather o Relieving factors: Injections, medications o The patient reports no difficulty with sleeping o The patient denies difficulty with bowel or bladder control, fevers, chills, or night sweats and arm or leg weakness. New Problems reported: None Recall: Patient of Dr. Rowland Current Status: INTAKE PAIN ASSESSMENT 10/01/2021 05/28/2022 Are you having pain associated with your visit today? 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) - - Current Pain Medications: o Opioids: o NSAIDS: Diclofenac 75 mg BID (only sparingly) o Anti-depressants: Duloxetine 60 mg daily o Anti-convulsants: Gabapentin 600-900 mg o Muscle relaxants: Flexeril o Others: Tylenol arthritis, prn Analgesia: adequate Current Anti-Coagulant Use: No Allergies: ALLERGIES Allergen Reactions Atorvastatin Other: See Comments Muscle aches; resolved after stopped statin Naproxen Hives Naproxyn [Naproxen] Hives Pravastatin Myalgia Did not tolerate Restasis [Cyclospor* Other: See Comments Burning and redness in the eyes Seasonal Allergies * Wellbutrin Xl [Bupr* Zoloft [Sertraline] Diarrhea Ibuprofen Rash Data Reviewed: Reviewed personally on today's date 05/28/2022 Relevant Imaging: MRI Spine Report MRI CERVICAL SPINE WO CONTRAST Collected: 02/22/2014 8:51 AM (Final result) Narrative: See Link below for Image Complete Results Electrodiagnostic Study (EMG): None Recent labs: Creatinine Date Value Ref Range Status 03/07/2022 0.82 0.58 - 0.96 mg/dL Final @lastegfr(gfr)@ Glucose, Point of Care Date Value Ref Range Status 09/17/2021 76 74 - 99 mg/dL Final Comment: Location:[facility], [address] [place] [address], [facility] The Accu-Chek Inform II glucose meter has not been approved for testing on patients receiving intensive medical intervention or therapy and results from this point of care glucose test should not be used for patient management decisions in these cases. Inaccurate results may also occur from other interfering factors, such as N-acetylcysteine (blood concentrations of greater than 5mg/dL), galactose, extremes of hematocrit (<10 or >65), or high doses of ascorbic acid (vitamin C) greater than 3mg/dL. Consider alternate testing mechanisms (e.g. core lab, blood gas instrument) in the above situations. Pain Procedures: DATE PROCEDURE IMPROVEMENT 09/17/21 left C3/4, C4/5, C5/6 MB RFA >75% relief 10/22/20 L C3, C4, C5 MB RFA 04/2020 C6-7 AJIT 09/2019 C6-7 AJIT Compliance: PDMP website checked and validated. No controlled substance prescriptions were reported. 05/28/2022 by Tootie Rodney APRN.SANDER HAND Last Drug screen: Not Applicable Risk Assessment: BRANDIE-7: No flowsheet data found.(0-4) minimal anxiety, (5-9) mild anxiety, (10-14) moderate anxiety, (15-21) severe anxiety PHQ-9: PHQ-9 10/09/2017 01/07/2021 09/28/2021 Score 3 5 3 (0-4) minimal depression, (5-9) mild depression, (10-14) moderate depression, (15-19) moderately severe depression, (20-27) severe depression Opioid Risk Tool: Family History of Substance Abuse: Yes Alcohol: 3 - Male Personal History of Substance Abuse: 0 - No Age between 16-45: 0 - No History of Pre-Adolescence Sexual Abuse: 0 - No Psychological Disease: Yes ADD/ADHD/OCD/Bipolar/Schizophrenia: No Depression: 1 - Yes Risk Total: 4 Total Score Risk Category: Moderate Risk 4-7 (0-3, low risk or no risk; 4-7, moderate risk, 8+, high risk) Current Medications, Past Medical History, Past Surgical History, Family History, Social History and Review of Systems: On today's date, 05/27/2022, noted above, I have confirmed and edited as necessary, the PFSH and ROS obtained by others. Physical Exam: 05/28/22 0829 Pulse: 88 Resp: 18 SpO2: 98% Constitutional: obese HEENT: Normal Cephalic, Atraumatic, Non-icteric sclera Eyes: Conjunctiva clear. No discharge from eyes Cardiovascular: Appears well perfused Lymphatic: No visible regional lymphadenopathy Skin: No visible rashes or ecchymosis Psychiatric: Full affect, Alert, Pleasant CERVICAL MUSCULOSKELETAL/NEURO EXAM: Inspection: - Symmetric without atrophy Posture: Normal intact spinal curves Gait: Antalgic Palpation: LEFT RIGHT Cervical Paraspinal Tenderness Positive Positive Levator Scapulae Negative Negative Trapezius Negative Negative Rhomboids Negative Negative (Other) Deferred Deferred Paraspinal spasm: None Greater Occipital Nerves: no tenderness in overlying tissue Cervical Facet Loading Positive Positive Strength: LEFT RIGHT Deltoid (C5) 5 5 Biceps (C6) 5 5 Triceps (C7) 5 5 Wrist Extensors (C8) 5 5 Abduct. Pollis Brevis (T1) 5 5 Muscle Tone: - Normal and symmetric Spurling: - Deferred to the Bilateral side(s) Sensation: - Grossly intact to light touch in the C5-T1 Bilateral upper limb dermatomes. Reflexes: LEFT RIGHT Bicep (C5) Normal 2+ Normal 2+ Brachioradialis (C6) Normal 2+ Normal 2+ Triceps (C7) Normal 2+ Normal 2+ Velasco absent absent} Diagnoses: (M47.812) Cervical spondylosis (primary encounter diagnosis) (G44.86) Cervicogenic headache (M54.2, G89.29) Chronic cervical pain Impression & Plan: 56 year old female with significant past medical history for diffuse cystic mastopathy, fibroids, HTN, DJD, LBP, KAVON on CPAP, cervicalgia, T2DM, lumbar spinal fusion c/b post-laminectomy syndrome, who presents with complaint(s) of chronic neck pain. Patient reports cervical ablations in the past has given her significant improvement of her overall pain. She has had greater than 6 months of pain relief from cervical RFA. She would like to repeat at this time. Her pain and examination are consistent with cervical facet mediated pain. She has no radicular symptoms at this time. Denies new or worsening concerns today. Jess Meeks would benefit from the following to decrease pain, improve function and/or work participation, and improve quality of life: Interventional Procedure(s): RFA B/L C3/4, C4/5, C5/C6 (LEFT then RIGHT) with fluoro 2 weeks apart guidance The risks, benefits, alternative treatment options and prognosis of the procedure were discussed and all of the patient's questions/concerns were addressed to the patient's satisfaction. The patient expressed understanding and gave verbal consent to proceed. Medications: Refill: No medications selected for refill. UDS, NAOIC/ORT: Reviewed and consistent, NAOIC/ORT up to date Functional Yarsanism: No changes-continue current regimen Additional Studies: None Referrals: None Additional: Patient is happy and agreeable with this plan. All questions were answered and patient verbalized understanding. Depending on response to the above plan, consider: Follow-up: next available appointment, for injections with 2 week follow up Attribution: In addition to reviewing the information noted above, some elements copied from my most recent clinical note(s), including the physical exam (completed in entirety today), and the impression and plan sections, have been updated where appropriate. All reflect current medical decision making from today's date. oTotie Rodney APRN.SANDER HAND Pain [facility] * Bia Dewitt MA - 05/28/2022 8:26 AM EDT Review of Systems Constitutional: Negative for activity change, chills, fever and unexpected weight change. Gastrointestinal: Negative for bowel retention or incontinence Genitourinary: Negative for difficulty urinating. Negative for bladder retention or incontinence Musculoskeletal: Positive for neck pain and neck stiffness. Negative for arthralgias, back pain, gait problem, joint swelling and myalgias. Neurological: Positive for numbness and headaches. Negative for weakness. Psychiatric/Behavioral: Positive for dysphoric mood. Negative for sleep disturbance and suicidal ideas. The patient is nervous/anxious. documented in this encounterLuther[facility] Hospital07-12-2022 Miscellaneous Notes* Telephone Encounter - Anabell Rodriguez APRN.CNP - 05/06/2022 1:55 PM EDT One month refill provided until her appt. PDMP website checked and validated. All prescriptions have been APPROPRIATELY filled. No suspiciousactivity was identified. 05/06/2022 by Anabell Rodriguez APRN.TYSON * Telephone Encounter - Tammy Olvera RN - 05/06/2022 1:02 PM EDT donald 09/30/21 fov Pt awaiting FC before she can schedule F/U appt. Assessment and Plan: ASSESSMENT/PLAN: 1. Obstructive sleep apnea - ICD9: 327.23, ICD10: G47.33 (primary diagnosis) Doing well with PAP except for some mask fit issues. Will refer to DME for mask fit. In addition, will order new Auto-PAP device given that pt's providing message that it is in need of replacement. Reminded to clean and replace equipment regularly. 2. RLS (restless legs syndrome) - ICD9: 333.94, ICD10: G25.81 3. PLMD (periodic limb movement disorder) - ICD9: 327.51, ICD10: G47.61 Continue gabapentin 600 to 900mg with dinner. Refills provided. Reviewed SE and ADRs. 4. Hypersomnia - ICD9: 780.54, ICD10: G47.10 Doing well on Nuvigil 250mg that pt takes as 1/4 to 1/2 tablet QAM. SE and ADRs reviewed with pt. Refills provided. Advised pt not to drive or operate heavy machinery when sleepy. Charles Cervantes MD * Telephone Encounter - Marah Mason Pss - 05/06/2022 11:52 AM EDT Physician: Dr. Cervantes Call from pharmacy requesting refill. Please E-Scribe Last OV: 09/30/[address] Cervantes Future OV: none made at this time, the patient requires FC before scheduling. FC is in process. Pending Prescriptions Disp Refills ARMODAFINIL 250 MG TABLET 30 tablet 0 Sig: Take 1 tablet by mouth once daily for 30 days. ALESSANDRO Class: C-IV RAÚL: No Pharmacy Name: [facility] Phone #: [phone] Marah Mason 09/30/21 Assessment and Plan: ASSESSMENT/PLAN: 1. Obstructive sleep apnea - ICD9: 327.23, ICD10: G47.33 (primary diagnosis) Doing well with PAP except for some mask fit issues. Will refer to DME for mask fit. In addition, will order new Auto-PAP device given that pt's providing message that it is in need of replacement. Reminded to clean and replace equipment regularly. 2. RLS (restless legs syndrome) - ICD9: 333.94, ICD10: G25.81 3. PLMD (periodic limb movement disorder) - ICD9: 327.51, ICD10: G47.61 Continue gabapentin 600 to 900mg with dinner. Refills provided. Reviewed SE and ADRs. 4. Hypersomnia - ICD9: 780.54, ICD10: G47.10 Doing well on Nuvigil 250mg that pt takes as 1/4 to 1/2 tablet QAM. SE and ADRs reviewed with pt. Refills provided. Advised pt not to drive or operate heavy machinery when sleepy. Charles Cervantes MD documented in this encounterLutheran Hospital06-27-2022 Miscellaneous Notes* Telephone Encounter - Ladi Mcnamara - 04/21/2022 11:30 AM EDT Patient has been scheduled for a office visit to [facility] injections with the next opening appointment. Ladi Mcnamara documented in this encounterLutheran Hospital05-10-2022 Miscellaneous Notes* Telephone Encounter - Charles Cervantes Jr., MD - 03/04/2022 12:19 PM EDT PDMP website checked and validated. All prescriptions have been APPROPRIATELY filled. No suspiciousactivity was identified. 03/04/2022 by Charles Cervantes MD * Telephone Encounter - Vannessa Banegas LPN - 03/04/2022 10:03 AM EDT Assessment and Plan: ASSESSMENT/PLAN: 1. Obstructive sleep apnea - ICD9: 327.23, ICD10: G47.33 (primary diagnosis) Doing well with PAP except for some mask fit issues. Will refer to DME for mask fit. In addition, will order new Auto-PAP device given that pt's providing message that it is in need of replacement. Reminded to clean and replace equipment regularly. 2. RLS (restless legs syndrome) - ICD9: 333.94, ICD10: G25.81 3. PLMD (periodic limb movement disorder) - ICD9: 327.51, ICD10: G47.61 Continue gabapentin 600 to 900mg with dinner. Refills provided. Reviewed SE and ADRs. 4. Hypersomnia - ICD9: 780.54, ICD10: G47.10 Doing well on Nuvigil 250mg that pt takes as 1/4 to 1/2 tablet QAM. SE and ADRs reviewed with pt. Refills provided. Advised pt not to drive or operate heavy machinery when sleepy. Charles Cervantes MD * Telephone Encounter - Thu Sonali Alberts LPN - 03/04/2022 9:03 AM EDT Pt calls stating she has been out of medication below x 1 week. She is aware this needs to have a prior authorization done also. Patient has been identified by name and date of : Yes Patient phones for refill(s): Pending Prescriptions Disp Refills ARMODAFINIL 250 MG TABLET 30 tablet 2 Sig: Take 1 tablet by mouth once daily for 90 days. ALESSANDRO Class: C-IV RAÚL: No Date of last office visit in primary care: 09/30/21 Last 2 Encounter Wt Readings: Date: Wt: 10/01/2021 91.6 kg (202 lb) 09/30/2021 91.6 kg (202 lb) Previous labs/tests for medication: Not applicable Please advise. Thank you. Thu Alberts LPN documented in this encounterLutheran Hospital04-07-2022 Miscellaneous Notes* Telephone Encounter - Marah Mason Pss - 01/30/2022 11:32 AM EDT Physician: Dr. Cervantes Call from pharmacy requesting refill. Please E-Scribe Last OV: 09/30/[address] Cervantes Future OV: The patient was to return in six months and no future appointment scheduled. Sent a message for the schedulers to schedule an appointment with Dr. Cervantes or one of the sleep nurse practitioners. Pending Prescriptions Disp Refills GABAPENTIN 300 MG CAPSULE 90 capsule 2 Sig: Take 2-3 caps nightly as instructed. RAÚL: No Pharmacy Name: [facility] Phone #: [phone] Marah Mason 09/30/21 Assessment and Plan: ASSESSMENT/PLAN: 1. Obstructive sleep apnea - ICD9: 327.23, ICD10: G47.33 (primary diagnosis) Doing well with PAP except for some mask fit issues. Will refer to DME for mask fit. In addition, will order new Auto-PAP device given that pt's providing message that it is in need of replacement. Reminded to clean and replace equipment regularly. 2. RLS (restless legs syndrome) - ICD9: 333.94, ICD10: G25.81 3. PLMD (periodic limb movement disorder) - ICD9: 327.51, ICD10: G47.61 Continue gabapentin 600 to 900mg with dinner. Refills provided. Reviewed SE and ADRs. 4. Hypersomnia - ICD9: 780.54, ICD10: G47.10 Doing well on Nuvigil 250mg that pt takes as 1/4 to 1/2 tablet QAM. SE and ADRs reviewed with pt. Refills provided. Advised pt not to drive or operate heavy machinery when sleepy. * Telephone Encounter - Gio Brennan - 01/29/2022 2:39 PM EDT Patient phones requesting refills as follows: Pending Prescriptions Disp Refills GABAPENTIN 300 MG CAPSULE 90 capsule 2 Sig: Take 2-3 caps nightly as instructed. RAÚL: No Please review and advise. [facility] Narrative* Problem Noted Date Resolved Date Fibroid uterus 04/14/2011 10/22/2013 Pelvic pain in female 04/14/2011 10/22/2013 Tobacco use disorder 01/07/2006 10/14/2016 SOMNOLENCE 01/07/2006 07/30/2016 documented as of this encounter (statuses as of 01/31/2022) [facility] Narrative* Problem Noted Date Resolved Date Fibroid uterus 04/14/2011 10/22/2013 Pelvic pain in female 04/14/2011 10/22/2013 Tobacco use disorder 01/07/2006 10/14/2016 SOMNOLENCE 01/07/2006 07/30/2016 documented as of this encounter (statuses as of 03/04/2022) [facility] Narrative* Problem Noted Date Resolved Date Fibroid uterus 04/14/2011 10/22/2013 Pelvic pain in female 04/14/2011 10/22/2013 Tobacco use disorder 01/07/2006 10/14/2016 SOMNOLENCE 01/07/2006 07/30/2016 documented as of this encounter (statuses as of 04/21/2022) [facility] Narrative* Problem Noted Date Resolved Date Fibroid uterus 04/14/2011 10/22/2013 Pelvic pain in female 04/14/2011 10/22/2013 Tobacco use disorder 01/07/2006 10/14/2016 SOMNOLENCE 01/07/2006 07/30/2016 documented as of this encounter (statuses as of 05/06/2022) [address]20-2011 History of Past illness Narrative* Problem Noted Date Resolved Date Fibroid uterus 04/14/2011 10/22/2013 Pelvic pain in female 04/14/2011 10/22/2013 Tobacco use disorder 01/07/2006 10/14/2016 SOMNOLENCE 01/07/2006 07/30/2016 documented as of this encounter (statuses as of 05/28/2022) [address]20-2011 History of Past illness Narrative* Problem Noted Date Resolved Date Fibroid uterus 04/14/2011 10/22/2013 Pelvic pain in female 04/14/2011 10/22/2013 Tobacco use disorder 01/07/2006 10/14/2016 SOMNOLENCE 01/07/2006 07/30/2016 documented as of this encounter (statuses as of 05/28/2022) [facility]* Problem Noted Date Resolved Date Fibroid uterus 04/14/2011 10/22/2013 Pelvic pain in female 04/14/2011 10/22/2013 Tobacco use disorder 01/07/2006 10/14/2016 SOMNOLENCE 01/07/2006 07/30/2016 documented as of this encounter (statuses as of 06/05/2022) [facility]* Problem Noted Date Resolved Date Fibroid uterus 04/14/2011 10/22/2013 Pelvic pain in female 04/14/2011 10/22/2013 Tobacco use disorder 01/07/2006 10/14/2016 SOMNOLENCE 01/07/2006 07/30/2016 documented as of this encounter (statuses as of 07/24/2022) [facility]* Problem Noted Date Resolved Date Fibroid uterus 04/14/2011 10/22/2013 Pelvic pain in female 04/14/2011 10/22/2013 Tobacco use disorder 01/07/2006 10/14/2016 SOMNOLENCE 01/07/2006 07/30/2016 documented as of this encounter (statuses as of 07/30/2022) [facility]* Problem Noted Date Resolved Date Fibroid uterus 04/14/2011 10/22/2013 Pelvic pain in female 04/14/2011 10/22/2013 Tobacco use disorder 01/07/2006 10/14/2016 SOMNOLENCE 01/07/2006 07/30/2016 documented as of this encounter (statuses as of 08/01/2022) [facility]* Problem Noted Date Resolved Date Fibroid uterus 04/14/2011 10/22/2013 Pelvic pain in female 04/14/2011 10/22/2013 Tobacco use disorder 01/07/2006 10/14/2016 SOMNOLENCE 01/07/2006 07/30/2016 documented as of this encounter (statuses as of 08/05/2022) [facility]* Problem Noted Date Resolved Date Fibroid uterus 04/14/2011 10/22/2013 Pelvic pain in female 04/14/2011 10/22/2013 Tobacco use disorder 01/07/2006 10/14/2016 SOMNOLENCE 01/07/2006 07/30/2016 documented as of this encounter (statuses as of 08/07/2022) [facility]* Problem Noted Date Resolved Date Fibroid uterus 04/14/2011 10/22/2013 Pelvic pain in female 04/14/2011 10/22/2013 Tobacco use disorder 01/07/2006 10/14/2016 SOMNOLENCE 01/07/2006 07/30/2016 documented as of this encounter (statuses as of 08/10/2022) [facility]* Problem Noted Date Resolved Date Fibroid uterus 04/14/2011 10/22/2013 Pelvic pain in female 04/14/2011 10/22/2013 Tobacco use disorder 01/07/2006 10/14/2016 SOMNOLENCE 01/07/2006 07/30/2016 documented as of this encounter (statuses as of 08/12/2022) [facility]* Problem Noted Date Resolved Date Fibroid uterus 04/14/2011 10/22/2013 Pelvic pain in female 04/14/2011 10/22/2013 Tobacco use disorder 01/07/2006 10/14/2016 SOMNOLENCE 01/07/2006 07/30/2016 documented as of this encounter (statuses as of 09/04/2022) [facility]* Problem Noted Date Resolved Date Fibroid uterus 04/14/2011 10/22/2013 Pelvic pain in female 04/14/2011 10/22/2013 Tobacco use disorder 01/07/2006 10/14/2016 SOMNOLENCE 01/07/2006 07/30/2016 documented as of this encounter (statuses as of 09/10/2022) [address]20-2011 History of Past illness Narrative* Problem Noted Date Resolved Date Fibroid uterus 04/14/2011 10/22/2013 Pelvic pain in female 04/14/2011 10/22/2013 Tobacco use disorder 01/07/2006 10/14/2016 SOMNOLENCE 01/07/2006 07/30/2016 documented as of this encounter (statuses as of 01/23/2023) [facility]* Problem Noted Date Diagnosed Date Resolved Date Fibroid uterus 04/14/2011 10/22/2013 Pelvic pain in female 04/14/20112012 Tobacco use disorder 01/07/2006 016 SOMNOLENCE 01/07/2006 07/30/2016 documented as of this encounter (statuses as of 12/24/2023) [facility]* Problem Noted Date Diagnosed Date Resolved Date Fibroid uterus 04/14/2011 10/22/2013 Pelvic pain in female 04/14/20112012 Tobacco use disorder 01/07/2006 016 SOMNOLENCE 01/07/2006 07/30/2016 documented as of this encounter (statuses as of 12/27/2023) [facility]* Problem Noted Date Diagnosed Date Resolved Date Fibroid uterus 04/14/2011 10/22/2013 Pelvic pain in female 04/14/20112012 Tobacco use disorder 01/07/2006 016 SOMNOLENCE 01/07/2006 07/30/2016 documented as of this encounter (statuses as of 01/01/2024) [facility]* Problem Noted Date Diagnosed Date Resolved Date Fibroid uterus 04/14/2011 10/22/2013 Pelvic pain in female 04/14/20112012 Tobacco use disorder 01/07/2006 016 SOMNOLENCE 01/07/2006 07/30/2016 documented as of this encounter (statuses as of 01/15/2024) [facility] Diagnosis PLMD (periodic limb movement disorder) Periodic limb movement disorder [facility] Diagnosis Hypersomnia Hypersomnia, unspecified KAVON (obstructive sleep apnea) Obstructive sleep apnea (adult) (pediatric) [facility] Diagnosis Hypersomnia Hypersomnia, unspecified KAVON (obstructive sleep apnea) Obstructive sleep apnea (adult) (pediatric) [facility]* Diagnosis Cervical spondylosis- Primary Cervical spondylosis without myelopathy Cervicogenic headache Headache Chronic cervical pain Cervicalgia [facility] Diagnosis Cervical spondylosis- Primary Cervical spondylosis without myelopathy Chronic cervical pain Cervicalgia [facility] Diagnosis Hypersomnia Hypersomnia, unspecified KAVON (obstructive sleep apnea) Obstructive sleep apnea (adult) (pediatric) [facility] Diagnosis Hypersomnia Hypersomnia, unspecified KAVON (obstructive sleep apnea) Obstructive sleep apnea (adult) (pediatric) [facility] Diagnosis Cervical spondylosis- Primary Cervical spondylosis without myelopathy [facility] Diagnosis KAVON (obstructive sleep apnea)- Primary Obstructive sleep apnea (adult) (pediatric) RLS (restless legs syndrome) Restless legs syndrome (RLS) PLMD (periodic limb movement disorder) Periodic limb movement disorder Hypersomnia Hypersomnia, unspecified Long-term current use of stimulant Essential hypertension, malignant [facility]* Diagnosis Cervical spondylosis- Primary Cervical spondylosis without myelopathy Cervicogenic headache Headache Other chronic pain documented in this encounter [facility] noteNo assessment information availableWProvidence Hospital Work Phone: Evaluation note* Diagnosis Onset Date Resolution Status Obstructive sleep apnea on CPAP acute Class 1 obesity with body ma ss index (BMI) of 33.0 to 33.9 in adult chronic Obstructive sleep apnea on CPAP acute [facility] Work Phone: Evaluation note* Diagnosis Onset Date Resolution Status Obstructive sleep apnea on CPAP chronic Over weight chronic [facility] Work Phone: Evaluation note* Diagnosis S/P insertion of spinal cord stimulator- Primary Malfunction of spinal cord stimulator, initial encounter ([facility]) documented in this encounter [facility] note* Diagnosis S/P insertion of spinal cord stimulator Malfunction of spinal cord stimulator, initial encounter ([facility]) documented in this encounter [facility] note* Diagnosis S/P insertion of spinal cord stimulator- Primary Malfunction of spinal cord stimulator, initial encounter ([facility]) Cervical spondylosis Cervical spondylosis without myelopathy Cervicogenic headache Headache Chronic cervical pain Cervicalgia Malfunction of spinal cord stimulator, initial encounter ([facility]) documented in this encounter [facility] note* Diagnosis Pre-op examination- Primary Preoperative examination, unspecified Malfunction of spinal cord stimulator, initial encounter ([facility]) Essential hypertension Unspecified essential hypertension Mixed hyperlipidemia Controlled type 2 diabetes mellitus without complication, without long-term current use of insulin (HCC) KAVON on CPAP Obstructive sleep apnea (adult) (pediatric) Malfunction of spinal cord stimulator, initial encounter ([facility]) * Assessment & Plan Note - Sola Kincaid APRN.CNP - 04/29/2024 12:03 PM EDT Associated Problem(s): KAVON on CPAP Patient compliant with CPAP * Assessment & Plan Note - Sola Kincaid APRN.CNP - 04/27/2024 5:32 PM EDT Associated Problem(s): Controlled type 2 diabetes mellitus without complication, without long-term current use of insulin (HCC) Metformin do not take day of surgery Last A1c 6.28 December 2023 * Assessment & Plan Note - Sola Kincaid APRN.CNP - 04/27/2024 5:30 PM EDT Associated Problem(s): Mixed hyperlipidemia Statin Okay to take day of surgery * Assessment & Plan Note - Sola Kincaid APRN.CNP - 04/27/2024 5:30 PM EDT Associated Problem(s): Essential hypertension Lisinopril do not take day of surgery * Assessment & Plan Note - Sola Kincaid APRN.CNP - 04/27/2024 5:29 PM EDT Associated Problem(s): Malfunction of spinal cord stimulator (HCC) Surgery scheduled for 05/06/[address] Cates * Assessment & Plan Note - Sola Kincaid APRN.CNP - 04/27/2024 5:28 PM EDT Associated Problem(s): Pre-op examination Patient has the following medical conditions which may affect jose-operative course addressed in assessment and plan today. [facility] Diagnosis HYPERTENSION NOS- Primary Unspecified essential hypertension Breast screening, unspecified HYPERLIPIDEMIA NEC/NOS Other and unspecified hyperlipidemia Family history of diabetes mellitus Pre-op examination- Primary Preoperative examination, unspecified Malfunction of spinal cord stimulator, initial encounter (HCC) Essential hypertension Unspecified essential hypertension Mixed hyperlipidemia Controlled type 2 diabetes mellitus without complication, without long-term current use of insulin (HCC) KAVON on CPAP Obstructive sleep apnea (adult) (pediatric) Malfunction of spinal cord stimulator, initial encounter ([facility])- Primary Pre-op examination Preoperative examination, unspecified Mixed hyperlipidemia Essential hypertension Unspecified essential hypertension KAVON on CPAP Obstructive sleep apnea (adult) (pediatric) Controlled type 2 diabetes mellitus without complication, without long-term current use of insulin (HCC) Malfunction of spinal cord stimulator, initial encounter ([facility]) * Assessment & Plan Note - Sofiya Horta APRN.CNP - 06/30/2024 11:26 AM EDTAssociated Problem(s): Controlled type 2 diabetes mellitus without complication, without long-term current use of insulin (HCC) No recent A1C in Epic Metformin - Hold morning of surgery * Assessment & Plan Note - Sofiya Horta APRN.CNP - 06/30/2024 11:25 AM EDTAssociated Problem(s): KAVON on CPAP CPAP compliant * Assessment & Plan Note - Sofiya Horta APRN.CNP - 06/30/2024 11:24 AM EDTAssociated Problem(s): Essential hypertension Controlled with lisinopril, instructed to hold morning of surgery * Assessment & Plan Note - Sofiya Horta APRN.CNP - 06/30/2024 11:24 AM EDTAssociated Problem(s): Mixed hyperlipidemia Statin, continue as prescribed * Assessment & Plan Note - Sofiya Horta APRN.CNP - 06/30/2024 11:23 AM EDTAssociated Problem(s): Pre-op examination Patient has the following medical conditions which may affect jose-operative course addressed in assessment and plan today. * Assessment & Plan Note - Sofiya Horta APRN.CNP - 06/30/2024 11:23 AM EDTAssociated Problem(s): Malfunction of spinal cord stimulator (HCC) Surgery scheduled with Dr. Cates on 07/08/2024 documented in this encounter [facility] note* Diagnosis HYPERTENSION NOS- Primary Unspecified essential hypertension Breast screening, unspecified HYPERLIPIDEMIA NEC/NOS Other and unspecified hyperlipidemia Family history of diabetes mellitus Pre-op examination- Primary Preoperative examination, unspecified Malfunction of spinal cord stimulator, initial encounter (HCC) Essential hypertension Unspecified essential hypertension Mixed hyperlipidemia Controlled type 2 diabetes mellitus without complication, without long-term current use of insulin (HCC) KAVON on CPAP Obstructive sleep apnea (adult) (pediatric) Malfunction of spinal cord stimulator, initial encounter (HCC)- Primary Pre-op examination Preoperative examination, unspecified Mixed hyperlipidemia Essential hypertension Unspecified essential hypertension KAVON on CPAP Obstructive sleep apnea (adult) (pediatric) Controlled type 2 diabetes mellitus without complication, without long-term current use of insulin (HCC) Pre-op examination Preoperative examination, unspecified Malfunction of spinal cord stimulator, initial encounter ([facility]) documented in this encounter [facility] note* Diagnosis HYPERTENSION NOS- Primary Unspecified essential hypertension Breast screening, unspecified HYPERLIPIDEMIA NEC/NOS Other and unspecified hyperlipidemia Family history of diabetes mellitus Pre-op examination- Primary Preoperative examination, unspecified Malfunction of spinal cord stimulator, initial encounter (HCC) Essential hypertension Unspecified essential hypertension Mixed hyperlipidemia Controlled type 2 diabetes mellitus without complication, without long-term current use of insulin (HCC) KAVON on CPAP Obstructive sleep apnea (adult) (pediatric) Malfunction of spinal cord stimulator, initial encounter (HCC)- Primary Pre-op examination Preoperative examination, unspecified Mixed hyperlipidemia Essential hypertension Unspecified essential hypertension AKVON on CPAP Obstructive sleep apnea (adult) (pediatric) Controlled type 2 diabetes mellitus without complication, without long-term current use of insulin ([facility]) Malfunction of spinal cord stimulator, initial encounter ([facility])- Primary S/P insertion of spinal cord stimulator [facility] Diagnosis HYPERTENSION NOS- Primary Unspecified essential hypertension Breast screening, unspecified HYPERLIPIDEMIA NEC/NOS Other and unspecified hyperlipidemia Family history of diabetes mellitus Pre-op examination- Primary Preoperative examination, unspecified Malfunction of spinal cord stimulator, initial encounter ([facility]) Essential hypertension Unspecified essential hypertension Mixed hyperlipidemia Controlled type 2 diabetes mellitus without complication, without long-term current use of insulin ([facility]) KAVON on CPAP Obstructive sleep apnea (adult) (pediatric) Malfunction of spinal cord stimulator, initial encounter ([facility])- Primary Pre-op examination Preoperative examination, unspecified Mixed hyperlipidemia Essential hypertension Unspecified essential hypertension KAVON on CPAP Obstructive sleep apnea (adult) (pediatric) Controlled type 2 diabetes mellitus without complication, without long-term current use of insulin ([facility]) S/P insertion of spinal cord stimulator- Primary Malfunction of spinal cord stimulator, initial encounter ([facility]) Cervical spondylosis Cervical spondylosis without myelopathy Cervicogenic headache Headache Lumbar spondylosis Lumbosacral spondylosis without myelopathy Facet arthropathy, lumbar Lumbosacral spondylosis without myelopathy [facility] Outpatient Procedure (Routine) - Pending Review Specialty Diagnoses / Procedures Referred By Donna mc Referred To [facility] Diagnoses Long-term current use of stimulant Procedures ECG COMPLETE ECG ROUTINE ECG W/LEAST 12 LDS W/I&R Jessica Daly APRN.CNP [address] [place] [address] [facility] [address] [place] [address] Referral ID Status Reason Start Date Expiration Date Visits Requested Visits Authorized [id number] Pending Review Auto-Generat ed Referral OON/Self Pay Override 2 08/08/2023 [address] [facility] [address] (narrative)* Diagnostic Procedure Only (Routine) - Outside PCP Specialty Diagnoses / Procedures Referred By Donna mc Referred To Contact XR IMAGING Diagnoses S/P insertion of spinal cord stimulator Malfunction of spinal cord stimulator, initial encounter (HCC) Procedures XR LUMBAR MOTION 4V AP/LAT/ FLEX/EXT RADEX SPINE LUMBOSACRAL MINIMUM 4 VIEWS Nicole Cates MD [address] [place] [address] [place] [address] Referral ID Status Reason Start Date Expiration Date Visits Requested Visits Authorized [id number] Outside PCP Auto-Generat ed Referral 12/23/2023 01/21/2025 1 1 * Diagnostic Procedure Only (Routine) - Outside PCP Specialty Diagnoses / Procedures Referred By Contac t Referred To Contact XR IMAGING Diagnoses S/P insertion of spinal cord stimulator Malfunction of spinal cord stimulator, initial encounter ([facility]) Procedures XR THORACIC GENERAL 3V AP/LAT/SWIMMERS RADEX SPINE THORACIC 3 VIEWS Nicole Cates MD [address] [place] [address] [place] [address] Referral ID Status Reason Start Date Expiration Date Visits Requested Visits Authorized [id number] Outside PCP Auto-Generat ed Referral 12/23/2023 01/21/2025 1 1 [facility]No reason for referral information availableDupont [facility] Services Work Phone: [facility] for visit Narrative* Diagnostic Procedure Only (Routine) - Closed Specialty Diagnoses / Procedures Referred By Contac t Referred To Contact XR IMAGING Diagnoses S/P insertion of spinal cord stimulator Malfunction of spinal cord stimulator, initial encounter (HCC) Procedures XR LUMBAR MOTION 4V AP/LAT/ FLEX/EXT RADEX SPINE LUMBOSACRAL MINIMUM 4 VIEWS Nicole Cates MD [address] [place] [address] [place] [address] Referral ID Status Reason Start Date Expiration Date Visits Requested Visits Authorized [id number] Closed Auto-Generated Referral Financial Clearance Required - OON Payor OON Notification Letter Patient cleared - OON Required Payment Collected 12/23/2023 01/21/2025 1 1 [facility] Summary Purpose Family History No Family History Records Found Relationship Condition Age at Onset Recorded Date/T toña father Hypertension Unknown Myocardial infarction Unknown Arthritis Unknown mother Diabetes mellitus Unknown Kidney disorder Unknown sister Malignant neoplasm Unknown Relationship Condition Age at Onset Recorded Date/T toña father Hypertension Unknown Myocardial infarction Unknown Arthritis Unknown Dementia Unknown Cardiac disease Unknown mother Diabetes mellitus Unknown Kidney disorder Unknown sister Malignant neoplasm Unknown brother Alcoholism Unknown aunt Family history of mental disorder Unknown grandfather Alcoholism Unknown grandmother Malignant neoplasm Unknown uncle Diabetes mellitus Unknown Malignant neoplasm Unknown Alcoholism Unknown aunt Diabetes mellitus Unknown Malignant neoplasm of breast Unknown daughter Irritable bowel syndrome Unknown Advance Directives No Advanced Directives Records FoundDocuments on File Type Date Recorded Patient [employer] Expl anation Advance Directive(s) 09/03/2020 8:56 AM Advance Directive(s) 11/15/2018 4:22 PM Documents on File Type Date Recorded Patient [employer] Expl anation Advance Directive(s) 09/03/2020 8:56 AM Advance Directive(s) 11/15/2018 4:22 PM Documents on File Type Date Recorded Patient [employer] Expl anation Advance Directive(s) 11/15/2018 4:22 PM Documents on File Type Date Recorded Patient [employer] Expl anation Advance Directive(s) 11/15/2018 4:22 PM Advance Directive Response Recorded Date/ Time Living Will Yes November 24 5:16pm Power of Maintenance Planning Clerk Yes November 24, 2024 5:16pm Name of Medical Power of Maintenance Planning Clerk November 24, 2024 5:16pm Advance Directive Response Recorded Date/ Time Living Will Yes November 24 5:16pm Do you have a Healthcare Power of Maintenance Planning Clerk? Yes November 24, 2024 5:16pm Name of Medical Power of Maintenance Planning Clerk November 24, 2024 5:16pm Reason for Referral Specialty Diagnoses / Procedures Referred By Contac t Referred To Contact Diagnoses Hypersomnia KAVON (obstructive sleep apnea) Charles Cervantes Jr., MD [address] [address] Referral ID Status Reason Start Date Expiration Date V isits Requested Visits Authorized [id number] Pending Review 1 1 Medications Administered Section Inactive Administered Medications - up to 3 most recent administrations Medication Order MAR Action Action Date Dose Rate Site bupivacaine (PF) 0.5 % (5 mg/mL) 15 mg injection 15 mg (3 mL), OTHER, ONCE, 1 dose, On Thu08/05/22 at 1330 Given by [facility] 08/05/2022 1:25 PM EDT 15 mg dexAMETHasone sodium phosphate 10 mg injection (DECADRON) 10 mg, OTHER, ONCE, 1 dose, On Thu08/05/22 at 1330 Given by [facility] 08/05/2022 1:25 PM EDT 10 mg lidocaine (PF) 20 mg/mL (2 %) 200 mg injection (XYLOCAINE) 200 mg (10 mL), OTHER, ONCE, 1 dose, On Thu08/05/22 at 1330 Given by [facility] 08/05/2022 1:24 PM EDT 200 mg Chief Complaint and Reason for Visit Chief Complaint KAVON on cpap 2 M FU Reason for Visit Obstructive sleep ap letitia on CPAP Class 1 obesity with body mass index (BMI) of 33.0 to 33.9 in adult Obstructive sleep apnea on CPAP Chief Complaint Sleep apnea-Prev LAB Reason for Visit Obstructive sleep ap letitia on CPAP Over weight Chief Complaint Sleep apnea-Prev LAB SCREENING Reason for Visit Obstructive sleep ap letitia on CPAP Over weight Chief Complaint SCREENING 6 M FU Reason for Visit Obstructive sleep ap letitia on CPAP Over weight Chief Complaint Admit Date SCREENING October 07, 2024 12:53pm ABDOMINAL PAIN W/ DEHYDRATION November 242024 3:12pm ABDOMINAL PAIN W/ DEHYDRATION November 252024 3:05pm ABDOMINAL PAIN W/ DEHYDRATION November 262024 11:59am pain, constipation, recent hospitalizati on November 29, 2024 10:52am Hospital follow up December 15, 2024 9:51am STEATOSIS December 23, 2024 9:15am Reason for Visit Admit Date Constipation November 24, 2024 3 :12pm Leukocytosis November 24, 2024 3 :12pm Abdominal pain November 24, 2024 3 :12pm Constipation December 15, 2024 9:51am Metabolic dysfunction-associ ated steatotic liver disease (MASLD) December 15, 2024 9:51am Chief Complaint Admit Date SCREENING October 07, 2024 12:53pm ABDOMINAL PAIN W/ DEHYDRATION November 242024 3:12pm ABDOMINAL PAIN W/ DEHYDRATION November 252024 3:05pm ABDOMINAL PAIN W/ DEHYDRATION November 262024 11:59am pain, constipation, recent hospitalizati on November 29, 2024 10:52am Hospital follow up December 15, 2024 9:51am STEATOSIS December 23, 2024 9:15am 1 Y FU January 03, 2025 3:0 3pm Reason for Visit Admit Date Constipation November 24, 2024 3 :12pm Leukocytosis November 24, 2024 3 :12pm Abdominal pain November 24, 2024 3 :12pm Constipation December 15, 2024 9:51am Metabolic dysfunction-associ ated steatotic liver disease (MASLD) December 15, 2024 9:51am Obesity January 03, 2025 3:0 3pm Obstructive sleep apnea on CPAP January 032024 3:03pm Chief Complaint Admit Date ABDOMINAL PAIN W/ DEHYDRATION November 242024 3:12pm ABDOMINAL PAIN W/ DEHYDRATION November 252024 3:05pm ABDOMINAL PAIN W/ DEHYDRATION November 262024 11:59am pain, constipation, recent hospitalizati on November 29, 2024 10:52am Hospital follow up December 15, 2024 9:51am STEATOSIS December 23, 2024 9:15am 1 Y FU January 03, 2025 3:0 3pm 3 M FU March 15, 2025 1:56p m Chief Complaint Admit Date Hospital follow up December 15, 2024 9:51am STEATOSIS December 23, 2024 9:15am 1 Y FU January 03, 2025 3:0 3pm 3 M FU March 15, 2025 1:56p m 3 M FU April 04, 2025 12:4 3pm Reason for Visit Admit Date Constipation December 15, 2024 9:51am Metabolic dysfunction-associ ated steatotic liver disease (MASLD) December 15, 2024 9:51am Obesity January 03, 2025 3:0 3pm Obstructive sleep apnea on CPAP January 032024 3:03pm GERD (gastroesophageal reflux disease) M ay 2024 1:56pm Metabolic dysfunction-associ ated steatotic liver disease (MASLD) March 15, 2025 1:56pm Obesity April 04, 2025 12:4 3pm Obstructive sleep apnea on CPAP March 12:43pm Additional Source Comments INFORMATION SOURCE (unrecogn ized section and content) DATE CREATED AUTHOR 04/21/2018 [facility] DATE CREATED AUTHOR AUTHOR'S ORGANIZ ATION 01/14/2019 [facility] DATE CREATED AUTHOR AUTHOR'S ORGANIZ ATION 06/18/2021 [facility] DATE CREATED AUTHOR AUTHOR'S ORGANIZ ATION 01/19/2024 [facility] DATE CREATED AUTHOR AUTHOR'S ORGANIZ ATION 07/10/2024 [facility] [place] DATE CREATED AUTHOR AUTHOR'S ORGANIZ ATION 04/11/2025 [facility] Source Comments (unrecognize d section and content) In the event this informatio n is protected by the Federal Confidentiality of Alcohol and Drug Abuse Patient Records regulations: The Federal rules restrict any use of the information to criminally investigate or prosecute any alcohol or drug abuse patient.[facility] the event this information is protected by the Federal Confidentiality of Alcohol and Drug Abuse Patient Records regulations: The Federal rules restrict any use of the information to criminally investigate or prosecute any alcohol or drug abuse patient.[facility] HospitalIn the event this information is protected by the Federal Confidentiality of Alcohol and Drug Abuse Patient Records regulations: The Federal rules restrict any use of the information to criminally investigate or prosecute any alcohol or drug abuse patient.[facility] HospitalIn the event this information is protected by the Federal Confidentiality of Alcohol and Drug Abuse Patient Records regulations: The Federal rules restrict any use of the information to criminally investigate or prosecute any alcohol or drug abuse patient.[facility] HospitalIn the event this information is protected by the Federal Confidentiality of Alcohol and Drug Abuse Patient Records regulations: The Federal rules restrict any use of the information to criminally investigate or prosecute any alcohol or drug abuse patient.[facility] HospitalIn the event this information is protected by the Federal Confidentiality of Alcohol and Drug Abuse Patient Records regulations: The Federal rules restrict any use of the information to criminally investigate or prosecute any alcohol or drug abuse patient.[facility] HospitalIn the event this information is protected by the Federal Confidentiality of Alcohol and Drug Abuse Patient Records regulations: The Federal rules restrict any use of the information to criminally investigate or prosecute any alcohol or drug abuse patient.[facility] HospitalIn the event this information is protected by the Federal Confidentiality of Alcohol and Drug Abuse Patient Records regulations: The Federal rules restrict any use of the information to criminally investigate or prosecute any alcohol or drug abuse patient.[facility] HospitalIn the event this information is protected by the Federal Confidentiality of Alcohol and Drug Abuse Patient Records regulations: The Federal rules restrict any use of the information to criminally investigate or prosecute any alcohol or drug abuse patient.[facility] HospitalIn the event this information is protected by the Federal Confidentiality of Alcohol and Drug Abuse Patient Records regulations: The Federal rules restrict any use of the information to criminally investigate or prosecute any alcohol or drug abuse patient.[facility] HospitalIn the event this information is protected by the Federal Confidentiality of Alcohol and Drug Abuse Patient Records regulations: The Federal rules restrict any use of the information to criminally investigate or prosecute any alcohol or drug abuse patient.[facility] HospitalIn the event this information is protected by the Federal Confidentiality of Alcohol and Drug Abuse Patient Records regulations: The Federal rules restrict any use of the information to criminally investigate or prosecute any alcohol or drug abuse patient.[facility] HospitalIn the event this information is protected by the Federal Confidentiality of Alcohol and Drug Abuse Patient Records regulations: The Federal rules restrict any use of the information to criminally investigate or prosecute any alcohol or drug abuse patient.[facility] HospitalIn the event this information is protected by the Federal Confidentiality of Alcohol and Drug Abuse Patient Records regulations: The Federal rules restrict any use of the information to criminally investigate or prosecute any alcohol or drug abuse patient.[facility] HospitalIn the event this information is protected by the Federal Confidentiality of Alcohol and Drug Abuse Patient Records regulations: The Federal rules restrict any use of the information to criminally investigate or prosecute any alcohol or drug abuse patient.[facility] HospitalIn the event this information is protected by the Federal Confidentiality of Alcohol and Drug Abuse Patient Records regulations: The Federal rules restrict any use of the information to criminally investigate or prosecute any alcohol or drug abuse patient.[facility] HospitalIn the event this information is protected by the Federal Confidentiality of Alcohol and Drug Abuse Patient Records regulations: The Federal rules restrict any use of the information to criminally investigate or prosecute any alcohol or drug abuse patient.[facility] HospitalIn the event this information is protected by the Federal Confidentiality of Alcohol and Drug Abuse Patient Records regulations: The Federal rules restrict any use of the information to criminally investigate or prosecute any alcohol or drug abuse patient.[facility] HospitalIn the event this information is protected by the Federal Confidentiality of Alcohol and Drug Abuse Patient Records regulations: The Federal rules restrict any use of the information to criminally investigate or prosecute any alcohol or drug abuse patient.[facility] HospitalIn the event this information is protected by the Federal Confidentiality of Alcohol and Drug Abuse Patient Records regulations: The Federal rules restrict any use of the information to criminally investigate or prosecute any alcohol or drug abuse patient.[facility] HospitalIn the event this information is protected by the Federal Confidentiality of Alcohol and Drug Abuse Patient Records regulations: The Federal rules restrict any use of the information to criminally investigate or prosecute any alcohol or drug abuse patient.[facility] HospitalIn the event this information is protected by the Federal Confidentiality of Alcohol and Drug Abuse Patient Records regulations: The Federal rules restrict any use of the information to criminally investigate or prosecute any alcohol or drug abuse patient.[facility] HospitalIn the event this information is protected by the Federal Confidentiality of Alcohol and Drug Abuse Patient Records regulations: The Federal rules restrict any use of the information to criminally investigate or prosecute any alcohol or drug abuse patient.[facility] HospitalIn the event this information is protected by the Federal Confidentiality of Alcohol and Drug Abuse Patient Records regulations: The Federal rules restrict any use of the information to criminally investigate or prosecute any alcohol or drug abuse patient.[facility] HospitalIn the event this information is protected by the Federal Confidentiality of Alcohol and Drug Abuse Patient Records regulations: The Federal rules restrict any use of the information to criminally investigate or prosecute any alcohol or drug abuse patient.[facility] HospitalIn the event this information is protected by the Federal Confidentiality of Alcohol and Drug Abuse Patient Records regulations: The Federal rules restrict any use of the information to criminally investigate or prosecute any alcohol or drug abuse patient.[facility] HospitalIn the event this information is protected by the Federal Confidentiality of Alcohol and Drug Abuse Patient Records regulations: The Federal rules restrict any use of the information to criminally investigate or prosecute any alcohol or drug abuse patient.[facility] HospitalIn the event this information is protected by the Federal Confidentiality of Alcohol and Drug Abuse Patient Records regulations: The Federal rules restrict any use of the information to criminally investigate or prosecute any alcohol or drug abuse patient.[facility] HospitalIn the event this information is protected by the Federal Confidentiality of Alcohol and Drug Abuse Patient Records regulations: The Federal rules restrict any use of the information to criminally investigate or prosecute any alcohol or drug abuse patient.[facility] Reason for Visit (unrecogniz ed section and content) Reason Onset Date Comments Refill Request 01/29/2022 Reason Onset Date Comments Refill Request 03/04/2022 Reason Comments Appointment Reason Onset Date Comments Refill Request 05/06/2022 Reason Comments Injections Reason Comments Follow Up Specialty Diagnoses / Procedures Referred By Donna t Referred To Contact PAIN MANAGEMENT Diagnoses discuss injections Procedures discuss injections Yung Rowland MD [address] [place] [address] [facility] [place] [address] [address] Referral ID Status Reason Start Date Expiration Date Visits Requested Visits Authorized [id number] Pending Review OON/Self Pay Override 04/21/2022 07/20/2022 1 1 Reason Comments New Patient Specialty Diagnoses / Procedures Referred By Contac t Referred To Contact PAIN MANAGEMENT Diagnoses CALL TO DISCUSS NOT GETTING THE RIGHT RFA DONE Procedures VIRTUAL VISIT Tootie Rodney, 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.SANDER HAND 1947 [facility] [address] [place] [address] [facility] [address] [address] Referral ID Status Reason Start Date Expiration Date V isits Requested Visits Authorized [id number] Closed OON/Self Pay Override 05/28/2022 08/26/2022 1 1 Reason Onset Date Comments Refill Request 07/29/2022 Reason Comments Procedure Specialty Diagnoses / Procedures Referred By Contac t Referred To Contact PAIN MANAGEMENT Diagnoses Spondylosis without myelopathy or radiculopathy, cervical region RFA B/L C3/4, C4/5, C5/C6 LEFT THEN RIGHT 2 WEEKS APART Procedures DSTR NROLYTC AGNT PARVERTEB FCT SNGL CRVCL/THORA DSTR NROLYTC AGNT PARVERTEB FCT ADDL CRVCL/THORA DSTR NROLYTC AGNT PARVERTEB FCT ADDL CRVCL/THORA PROCEDURE 20 Tootie Rodney, 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.SANDER HAND [address] [facility] [address] [place] [address] [facility] [address] [address] Referral ID Status Reason Start Date Expiration Date Visits Requested Visits Authorized [id number] Authorized OON/Self Pay Override 11/05/2022 2 2 Reason Comments Procedure Follow Up Reason Comments Follow Up Sleep Apnea Refills today Excessive Daytime Sleepiness Specialty Diagnoses / Procedures Referred By Contac t Referred To Contact NEUROLOGY Diagnoses Follow up Procedures Office Visit Charles Cervantes Jr., MD [address] [place] [address] Neur Adult [facility] [address] [place] [address] Referral ID Status Reason Start Date Expiration Date V isits Requested Visits Authorized [id number] Closed Financial Clearance Required - OON Payor Patient cleared - OON Required Payment Collected 05/19/2022 08/17/2022 1 1 Reason Comments PAP Therapy Follow Up Mask refit and pre ssure change order for PAP Specialty Diagnoses / Procedures Referred By Contac t Referred To Contact PAIN MANAGEMENT Diagnoses FOLLOW UP FROM PROCEDURE Procedures VIRTUAL VISIT Tootie Rodney, 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.[facility] [address] [facility] [address] [place] [address] [facility] [place] [address] 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 implant (Dr Hernandez installed) Procedures EST PATIENT Self Nicole Cates MD [address] [place] [address] Referral ID Status Reason Start Date Expiration Date Visits Requested Visits Authorized [id number] Outside PCP OON/Self Pay Override 12/23/2023 04/01/2025 1 1 Reason Comments Patient Update SCS battery swap sub mitted for prior [facility] Reason Comments Established Patient Follow Up 3 month Low Back Pain Specialty Diagnoses / Procedures Referred By Contac t Referred To Contact PAIN MANAGEMENT Diagnoses Other mechanical complication of implanted electronic neurostimulator of spinal cord electrode (lead), initial encounter Procedures OFFICE VISIT, EST PT., LEVEL [address] [place] [address] [place] [address] [facility] [place] [address] [place] [address] Referral ID Status Reason Start Date Expiration Date Visits Requested Visits Authorized [id number] Outside PCP OON/Self Pay Override 12/23/2023 03/22/2024 1 1 Specialty Diagnoses / Procedures Referred By Contac t Referred To Contact Diagnoses Other mechanical complication of implanted electronic neurostimulator of spinal cord electrode (lead), initial encounter Procedures INSJ/RPLCMT SPINAL NPG/RCVR POCKET CRTJ&Nicole Suh MD [address] [place] [address] [facility] [address] [place] [address] Referral ID Status Reason Start Date Expiration Date Visits Requested Visits Authorized [id number] Outside PCP OON/Self Pay Override 02/25/2024 06/04/2025 1 1 Reason Comments Patient Update BATTERY SWAP SUBMITT ED Specialty Diagnoses / Procedures Referred By Contac t Referred To Contact Diagnoses Other mechanical complication of implanted electronic neurostimulator of spinal cord electrode (lead), initial encounter Procedures INSJ/RPLCMT SPINAL NPG/RCVR POCKET CRTVictor M&Nicole Suh MD, PhD [address] [place] [address] Tn Surgery Or [address] [place] [address] Referral ID Status Reason Start Date Expiration Date Visits Requested Visits Authorized [id number] Outside PCP OON/Self Pay Override 05/17/2024 08/25/2025 1 1 Reason Comments Low Back Pain Specialty Diagnoses / Procedures Referred By Contac t Referred To Contact Pain Management / PAIN MANAGEMENT Diagnoses check 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 Madeline Quispe MD Family Provider Active Dr. Yung Valenzuela MD Primary Care Provider Active Team Status: Inactive Member Role Status Dates Dr. Yung Valenzuela MD Primary Care Provider, Attend ing Provider Active Team Status: Inactive Member Role Status Dates Dr. Yung Valenzuela MD Primary Care Pr ovider, Attending Provider, Referring Provider Active Team Status: Active Member Role Status Dates Dr. Yung Valenzuela MD Primary Care Provider, Attend ing Provider Active Team Status: Inactive Member Role Status Dates Dr. Yung Valenzuela MD Primary Care Provider, Referr ing Provider Active Dr. Jerald Garland MD Attending Provider Active Team Status: Inactive Member Role Status Dates Dr. Yung Valenzuela MD Primary Care Provider, Referr ing Provider Active Neela Apple GREEN BELT, GREEN BELT-C Attending Provider Active Team Status: Inactive Member Role Status Dates Dr. Yung Valenzuela MD Primary Care Provider, Referr ing Provider Active Dr. Basim Sandoval MD Attending Provider Active Knowledge Engineer Relationship Specialty Start Date End Date Yung Valenzuela MD [address] [facility] [address] [place] [address] PCP - General Family Medicine 05/06/24 Knowledge Engineer Relationship Specialty Start Date End Date Yung Valenzuela MD [address] [facility] [address] [place], [place] [address] PCP - General Family Medicine 05/06/24 Knowledge Engineer Relationship Specialty Start Date End Date Yung Valenzuela MD [address] [facility] [address] [place], [place] [id number] PCP - General Family Medicine 05/06/24 Knowledge Engineer Relationship Specialty Start Date End Date Yung Valenzuela MD [address] [facility] [address] [place], [place] [address] PCP - General Family Medicine 05/06/24 Knowledge Engineer Relationship Specialty Start Date End Date Yung Valenzuela MD [address] [facility] [address] [place] [address] PCP - General Family Medicine 05/06/24 Knowledge Engineer Relationship Specialty Start Date End Date Yung Valenzuela MD [address] [facility] [address] [place], [place] [address] PCP - General Family Medicine 05/06/24 Team Status: Active Member Role Status Dates Dr. Yung Valenzuela MD Primary Care Provider Active Team Status: Inactive Member Role Status Dates Dr. Yung Valenzuela MD Primary Care Provider Active Start: September 19, 2024 End: September 19, 2024 Dr. Yung Valenzuela MD Attending Provider Active Start: September 19, 2024 End: September 19, 2024 Team Status: Inactive Member Role Status Dates Dr. Yung Valenzuela MD Primary Care Provider Active Start: October 07, 2024 End: October 07, 2024 Dr. Ynug Valenzuela MD Attending Provider Active Start: October 07, 2024 End: October 07, 2024 Dr. Yung Valenzuela MD Referring Provider Active Start: October 07, 2024 End: October 07, 2024 Team Status: Inactive Member Role Status Dates Dr. Yung Valenzuela MD Primary Care Provider Active Start: October 25, 2024 End: October 25, 2024 Dr. Yung Valenzuela MD Attending Provider Active Start: October 25, 2024 End: October 25, 2024 Dr. Yung Valenzuela MD Referring Provider Active Start: October 25, 2024 End: October 25, 2024 Team Status: Inactive Member Role Status Dates Dr. Yung Valenzuela MD Primary Care Provider Active Start: November 24, 2024 End: November 26, 2024 Dr. Pepito Cabrera MD Emergency Provider Active S tart: November 24, 2024 End: November 26, 2024 Dr. Kofi Puckett DO Admit Provider Active Start: November 24, 2024 End: November 26, 2024 Dr. Kofi Puckett DO Other Provider Active Start: November 24, 2024 End: November 26, 2024 Dr. Antoni Bass DO Attending Provider Active Start: November 24, 2024 End: November 26, 2024 Team Status: Active Member Role Status Dates Dr. Yung Valenzuela MD Primary Care Provider Active Start: November 25, 2024 Dr. Pepito Cabrera MD Emergency Provider Active S tart: November 25, 2024 Dr. Kofi Puckett DO Admit Provider Active Start: November 25, 2024 Dr. Kofi Puckett DO Other Provider Active Start: November 25, 2024 Dr. Antoni Bass DO Attending Provider Active Start: November 25, 2024 Dr. Antoni Bass DO Other Provider Active S tart: November 25, 2024 Team Status: Active Member Role Status Dates Dr. Yung Valenzuela MD Primary Care Provider Active Start: November 26, 2024 Dr. Pepito Cabrera MD Emergency Provider Active S tart: November 26, 2024 Dr. Kofi Puckett DO Admit Provider Active Start: November 26, 2024 Dr. Kofi Puckett DO Other Provider Active Start: November 26, 2024 Dr. Antoni Bass DO Attending Provider Active Start: November 26, 2024 Dr. Antoni Bass DO Other Provider Active S tart: November 26, 2024 Team Status: Inactive Member Role Status Dates Dr. Yung Valenzuela MD Primary Care Provider Active Start: November 29, 2024 End: November 29, 2024 Dr. Yung Valenzuela MD Attending Provider Active Start: November 29, 2024 End: November 29, 2024 Dr. Yung Valenzuela MD Referring Provider Active Start: November 29, 2024 End: November 29, 2024 Team Status: Inactive Member Role Status Dates Dr. Yung Valenzuela MD Primary Care Provider Active Start: December 15, 2024 End: December 15, 2024 Dr. Yung Valenzuela MD Referring Provider Active Start: December 15, 2024 End: December 15, 2024 DORY Saldana Attending Provider Active S tart: December 15, 2024 End: December 15, 2024 Team Status: Inactive Member Role Status Dates Dr. Yung Valenzuela MD Primary Care Provider Active Start: December 20, 2024 End: December 20, 2024 Dr. Yung Valenzuela MD Attending Provider Active Start: December 20, 2024 End: December 20, 2024 Dr. Yung Valenzuela MD Referring Provider Active Start: December 20, 2024 End: December 20, 2024 Team Status: Active Member Role Status Dates Dr. Yung Valenzuela MD Primary Care Provider Active Start: December 23, 2024 Jolene Gupta GREEN BELT-C Attending Provider Active S tart: December 23, 2024 Jolene Gupta GREEN BELT-C Referring Provider Active S tart: December 23, 2024 Team Status: Inactive Member Role Status Dates Dr. Yung Valenzuela MD Primary Care Provider Active Start: December 23, 2024 End: December 23, 2024 Jolene Gupta NP-C Attending Provider Active S tart: December 23, 2024 End: December 23, 2024 Jolene Gupta GREEN BELT-C Referring Provider Active S tart: December 23, 2024 End: December 23, 2024 Team Status: Inactive Member Role Status Dates Dr. Yung Valenzuela MD Primary Care Provider Active Start: January 03, 2025 End: January 03, 2025 Dr. Yung Valenzuela MD Referring Provider Active Start: January 03, 2025 End: January 03, 2025 Neela Apple NP GREEN BELT-C Attending Provider Active Start: January 03, 2025 End: January 03, 2025 Team Status: Inactive Member Role Status Dates Dr. Yung Valenzuela MD Primary Care Provider Active Start: January 26, 2025 End: January 26, 2025 Dr. Yung Valenzuela MD Attending Provider Active Start: January 26, 2025 End: January 26, 2025 Dr. Yung Valenzuela MD Referring Provider Active Start: January 26, 2025 End: January 26, 2025 Team Status: Inactive Member Role Status Dates Dr. Yung Valenzuela MD Primary Care Provider Active Start: March 15, 2025 End: March 15, 2025 Dr. Yung Valenzuela MD Referring Provider Active Start: March 15, 2025 End: March 15, 2025 Dr. Ulysses Sotelo MD Attending Provider Active Start: March 15, 2025 End: March 15, 2025 Team Status: Inactive Member Role Status Dates Dr. Yung Valenzuela MD Primary Care Provider Active Start: April 04, 2025 End: April 04, 2025 Dr. Yung Valenzuela MD Referring Provider Active Start: April 04, 2025 End: April 04, 2025 Neela Apple GREEN BELT, GREEN BELT-C Attending Provider Active Start: April 04, 2025 End: April 04, 2025 Goals (unrecognized section and content) Goals may be documented in a n alternate sectionGoals may be documented in an alternate sectionGoals may be documented in an alternate sectionGoals may be documented in an alternate sectionGoals may be documented in an alternate sectionGoals may be documented in an alternate section FOR RECORDS PERTAINING TO PATIENTS WHO ARE OR HAVE BEEN ENROLLED IN A CHEMICAL DEPENDENCY/SUBSTANCEABUSE PROGRAM, SOME INFORMATION MAY BE OMITTED. This clinical summary was aggregated from multiple sources. Caution should be exercised in using it in the provision of clinical care. This summary normalizes information from multiple sources, and as a consequence, information in this document may materially change the coding, format and clinical context of patient data. In addition, data may be omitted in some cases. CLINICAL DECISIONS SHOULD BE BASED ON THE PRIMARY CLINICAL RECORDS. [employer] [facility]. provides no warranty or guarantee of the accuracy or completeness of information in this document.
== END 2025-04-13 23:59 | disposition home or self-care (01) ==
LOC: SL 11:05
PROVIDERS: PCP Family Medicine; Referring Provider Nurse Practitioner Acute Care; Visit Provider Nurse Practitioner Acute Care
DX: G47.33 Obstructive sleep apnea (adult) (pediatric) (principal)
CPT/HCPCS: 98960; G0463

== ENCOUNTER → 2025-04-24 | Outpatient (CLI) | payer OTHER, SELFPAY ==
[2025-04-24 09:40] LABS: Bacteria 0 SEEN /hpf (None Seen); Mucous, Urine 0 SEEN /hpf (<or=2+)
[2025-04-24 12:33] LABS: Color, Urine Yellow (Yellow); Glucose, Dipstick Normal (Normal); Ketone-Dipstick Negative (Negative); Leukocyte Esterase-Dipstick 500 /ul (Negative); Nitrite-Dipstick Negative (Negative); Occult Blood-Urine 10 /ul (Negative); Protein-Dipstick 15 mg/dl (Negative); Urine Bilirubin Dipstick Negative (Negative); Urine Clarity Clear (Clear); Urine Urobilinogen Normal (Normal)
[2025-04-24 12:39] LABS: Red Blood Cells-Urine 0-5 SEEN /hpf (0-5); Squamous Epithelial Cells - UA 0-5 SEEN /hpf (5-10); White Blood Cells 0-5 SEEN /hpf (0-5)
[2025-04-24 12:43] LABS: Absolute Lymphocyte Count 2.41 X10^3/uL (0.83-4.51); Absolute Neutrophil Count 4.6 X10^3/uL (2.0-7.7); Basophil# 0.06 X10^3/uL; Basophil% 0.8 % (0-1); Eosinophil# 0.22 X10^3/uL; Eosinophils% 2.8 % (0-5); Hematocrit 43.5 % (37-47); Hemoglobin 14.4 g/dL (12.0-15.0); Hemoglobin A1c 6.9 % (<=5.6); Lymphocyte # 2.41 X10^3/ul (0.83-4.51); Lymphocyte % 30.1 % (19-41); Mean Corp Hgb Conc 33.1 g/dL (32-36); Mean Corpuscular Hgb 28.2 pg (27.0-32.0); Mean Corpuscular Volume 85.3 fL (81-99); Mean Platelet Vol. 11.3 fl (6.2-12.0); Monocyte# 0.65 X10^3/uL; Monocyte% 8.1 % (0-10); NRBC Flagged by Analyzer 0 % (0-5); Neutrophil # 4.61 X10^3/uL (2.7-7.7); Neutrophil % 57.6 % (47-70); Platelet Count 293 K/mm3 (150-450); RBC Distribution Width CV 13.7 % (11.6-14.6); RBC Distribution Width SD 42.2 fl (35.1-43.9)
[2025-04-24 13:10] LABS: Microalbumin,Random Urine 15.6 mg/L (NO RANGE EST.); Microalbumin:Creatinine Ratio 12.3 mg/g CRE
[2025-04-24 13:23] LABS: ALB/GLOB Ratio 1.6 RATIO (0.9-2.4); AST(SGOT) 24 U/L (<=31); Alanine Aminotransfer ALT/SGPT 24 U/L (<=34); Albumin, Serum 4.7 g/dL (3.4-4.8); Alkaline Phosphatase 88 U/L (35-104); Anion Gap 13 (5-15); BUN 14 mg/dL (4-19); BUN/Creat Ratio 19.2 RATIO (10-20); Carbon Dioxide 22.9 mmol/L (21.0-32.0); Chloride 102 mmol/L (98-108); Cholesterol 192 mg/dL (<=200); EST Glomerular Filtration Rate 98 (>60); Glucose 138 mg/dL (70-99); High Density Lipoprotein 49 mg/dL; Low Density Lipoprotein Calc. 102 mg/dL; Magnesium 1.9 mg/dL (1.5-2.2); Potassium 4.5 mmol/L (3.3-5.1); Protein, Total 7.8 g/dL (5.9-8.4); Sodium Level 138 mmol/L (133-145); Total Bilirubin 0.44 mg/dL (0.00-1.30); Triglycerides 206 mg/dL; Very Low Density Lipoprotein 41 mg/dL (5-40); cholesterol:hdl ratio screen 3.92
[2025-04-24 13:28] LABS: Vitamin B12 1046 pg/mL (180-914); Vitamin D,25 Hydroxy 44.7 ng/mL (30-100)
== END | disposition home or self-care (01) ==
LOC: MFPLAB 09:34
PROVIDERS: PCP Family Medicine; Referring Provider Family Medicine; Visit Provider Family Medicine
DX: E11.59 Type 2 diabetes mellitus with other circulatory complications (principal); E53.9 Vitamin B deficiency, unspecified; E55.9 Vitamin D deficiency, unspecified
CPT/HCPCS: 36415; 80053; 80061; 81001; 82043; 82306; 82570; 82607; 83036; 83735; 84207; 84425; 84443; 85025

== ENCOUNTER → 2025-07-24 | Outpatient (CLI) | payer OTHER, SELFPAY ==
--- OUTSIDE RECORDS SUMMARY | 2025-07-14 11:00 | XMS RPT_ITS ---
Author Name Auto Generated Organization OH[facility] Care Team Providers Care Control Inspector Name Role Phone PREBISH, SHELLEY Attending Unavailable ONEL CALDERÓN Referring Unavailable YUNG PADRON Primary Care Unavailable PREBISH, SHELLEY Referring Unavailable YUNG PADRON Primary Care Unavailable PROBLEMS DATE TYPE CONDITION / CODE ATTENDING STATUS [facility] 02/03/2014 Active Postlaminectomy syndrome, lumbar region / M96.1(ICD-10) [facility] Active [facility] 07/14/2025 Active Lumbar spondylos is / M47.816(ICD-10) [facility] Active Facet arthropath y, lumbar / M47.816(ICD-10) [facility] Active [facility] PROCEDURES No Procedure Records Found RESULTS XR THORACIC 3V AP/LAT/SWIMMERS Observed: 07/14/2025 11:30 AM Status: F Source: [facility] * * *Final Report* * * DATE OF EXAM: Jul 14 2025 11:30AM LDX 5261 - XR THORACIC 3V AP/LAT/SWIMMERS / PROCEDURE REASON: Postlaminectomy syndrome, lumbar region * * * * Physician Interpretation * * * * EXAM TITLE: XR THORACIC 3V AP/LAT/SWIMMERS DATE: 07/21/2025 7:00 AM INDICATION: Post laminectomy. Back pain COMPARISON: 01/14/2024 FINDINGS: Stable spinal stimulator leads and laminectomy defects. Mild multilevel degenerative disc disease. No fracture or dislocation. Normal alignment and soft tissues. IMPRESSION: Stable exam. Single Spindle Screw Machine Operator: MANASA Transcribe Date/Time: Jul 21 2025 7:00A Dictated by : BRYAN ELLER MD This examination was interpreted and the report reviewed and electronically signed by: BRYAN ELLER MD on Jul 21 2025 7:02AM EST [id number] XR LUMBAR PARS 4V AP/LAT/OBL X2 Observed: 07/14/2025 11:30 AM Status: F Source: [facility] * * *Final Report* * * DATE OF EXAM: Jul 14 2025 11:30AM LDX 5233 - XR LUMBAR PARS 4V AP/LAT/OBL X2 / PROCEDURE REASON: Postlaminectomy syndrome, lumbar region * * * * Physician Interpretation * * * * EXAMINATION: XR LUMBAR PARS 4V AP/LAT/OBL X2 HISTORY: Postlaminectomy syndrome, lumbar region . Patient/Technologist Provided History: postlaminectomy, lumbar pain TECHNIQUE: XR LUMBAR PARS 4V AP/LAT/OBL X2 Laterality: NOT APPLICABLE Number of different views (projections): 9 COMPARISON: 01/14/2024 RESULT: For the purposes of this report L4-L5 is considered at the level of the iliac crest and there are 5 lumbar-type vertebral bodies. Surgical changes from posterior bilateral pedicle screw and dania fixation at L5-S1. No hardware fracture or loosening. Also posterior decompression at L5-S1. No fracture or dislocation. Vertebral body heights are maintained. There is narrowing of the disc space at L4-L5 and L3-L4. There are facet degenerative changes L3-S1. Neural stimulator device enters the spinal canal at L1-L2 and extends cranially. No instability on the flexion or the extension views. Suboptimal evaluation of the neural foramina on the oblique views. Visualized bowel gas pattern is unremarkable. Lung bases are unremarkable. There are cholecystectomy clips. IMPRESSION: Degenerative and postsurgical changes in the spine, unchanged since the prior exam. Single Spindle Screw Machine Operator: PSCB Transcribe Date/Time: Jul 20 2025 2:20P Dictated by : FRANTZ ARCOS MD This examination was interpreted and the report reviewed and electronically signed by: FRANTZ ARCOS MD on Jul 20 2025 2:24PM EST [id number] PROGRESS Observed: 07/14/2025 8:15 AM Status: COMPLETED Source: [facility] HNO ID: [id number] Author: SHELLEY ROBERTSON APRN.TECHNICIAN BIOLOGICAL HEALTH Service: ? Author Type: Nurse Practitioner Type: Progress Notes Filed: 07/14/2025 12:57 Note Text: [facility] General Today's Date: 07/14/2025 Name: Jess Meeks : 1965 Purpose: Follow-up [...] s/p SCS implant (2013), s/p SCS battery revision 2023 Plan at last visit: IMPRESSION: 58 year old female with a [...] radicular leg symptoms due to multifactorial pathology including lumbar spondylosis, lumbar radiculopathy in setting of known [...] as cervical neuroforaminal stenosis (multilevel NF stenosis up to mild in severity). Patient reports that she has minimal lower back and LE pain with use of her SCS system, which provides 100% relief of her symptoms. Due to the excellent relief that she had with her implanted system, she underwent SCS battery exchange on 07/08/2024 due [...] Malfunction of spinal cord stimulator, initial encounter ([facility]) (M47.812) Cervical spondylosis (G44.86) Cervicogenic headache (M47.816) [...] as tolerated Interventional Procedures: SCS reprogram with [employer] Studies: None Functional Sikhism: NONE Referrals: No additional considerations at present Follow-up: 2 weeks after SCS battery exchange Depending on response to the above plan, consider: Consider reinitiation and uptitration of gabapentin, CT versus MRI L-spine after SCS battery change (confirm if MRI conditional leads), lumbar MBB/RFA, lumbar AJIT Interval History: Overall pain and functional disability since last visit: Unchanged New Complaints since last visit: No Jess Meeks is a 59-year-old female presenting with severe back spasms and pain. Jess reports experiencing severe back spasms and pain for the past two weeks. She describes the pain as a 5/10, which is manageable, but the spasms are significantly impacting her daily functioning, causing weakness in her legs and difficulty sleeping. The spasms are triggered by various activities, such as getting up from a chair or sudden movements, and she has difficulty finding a comfortable sleeping position. She has a [employer] spinal cord stimulator, which she has had for 11 years. A year ago, the battery was replaced. She notes that the stimulator has turned off on its own in the past, leading to increased back pain and spasms. 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 She turned the stimulator back on, but the spasms have persisted. She has a history of a fall in April, where she fell forward onto her knees. She did not notice any immediate issues with the stimulator after the fall and continued to feel its effects. She has also undergone a discectomy at L5 and reports being "bone on bone" at L4. She is currently taking Cymbalta 30 mg, diclofenac as needed, and Flexeril for spasms. She reports that Flexeril makes her groggy and does not effectively relieve the spasms. She has not tried other muscle relaxants. She has a known allergy to naproxen, which causes hives. She has a long airplane trip scheduled for August 23 and is concerned about managing her symptoms during the flight. She expresses frustration with the ongoing pain and spasms, stating that they are significantly affecting her quality of life. She mentions that the spinal cord stimulator has been a "game changer" for her, allowing her to continue working, but the recent increase in spasms has been challenging. Current Pain Medications: Neuropathics: Cymbalta 30 mg daily, NSAIDS: Diclofenac 75 mg as needed Muscle Relaxants: Flexeril 10 mg twice daily as needed Topicals: Other Prescription or OTC Pain Medications: Opioids (when applicable): No question data found. Anti-depressants or Mood-Stabilizers: None Anti-Coagulants: None Therapies Attended (Current or Most Recent): No Current Therapies Treatment History: PAIN PROCEDURES: DATE PROCEDURE IMPROVEMENT 08/05/22 LEFT C3/4, C4/5 MB RFA 09/17/21 left C3/4, C4/5, C5/6 MB RFA 10/22/20 L C3, C4, C5 MB RFA 04/2020 C6-7 AJIT 09/2019 C6-7 AJIT Notable Events During Course of Treatment: Recall: Patient was last seen on 06/17/21 [...] minimal charge burden of her IPG with her current battery in good working order. She was provided additional programs but was most happy with her initial therapy. With regards to medications, patient is on Gabapentin 600-900 QHS, Diclofenac 75mg BID vs Nabumetone 500mg every day prn, Flexeril 10mg TID, Duloxetine 60mg every day History of Present Illness (HPI): Initial HPI [...] minimal charge burden of her IPG with her current battery in good working order. She was provided additional programs but was most happy with her initial therapy. With regards to medications, patient [...] very rare wine Drug use: No 07/20/2024 07/14/2025 INTAKE PAIN ASSESSMENT Are you having pain associated with your visit today? Yes, Provider notified Yes, Provider notified Pain Scales Verbal (Numeric Rating or Visual Analog Scale) Verbal (Numeric Rating or Visual Analog Scale) Pain Level 2 5 Pain Location Back-Lower Back Description Aching;Dull Aching;Cramping;Shooting Duration Units Years Years Frequency Intermittent Continuous Intervention/Comfort measure Medication Medication;Reposition;Relaxation Data saved with a previous flowsheet row definition Compliance: PDMP website checked and validated on 07/14/2025 by Shelley Robertson APRN.TECHNICIAN BIOLOGICAL HEALTH All prescriptions have been APPROPRIATELY filled. No suspicious activity was identified. 2018 08/25/2019 10/01/2021 05/28/2022 12/23/2023 07/14/2025 AG SPINE COMBINATION Questionnaire GREENLIGHT Completed Date 2018 Questionnaire Opiod Risk Tool Opiod Risk Tool Opiod Risk Tool Opiod Risk Tool Opiod Risk Tool Opiod Risk Tool Completed Date 2018 08/25/2019 10/01/2021 05/28/2022 12/23/2023 07/14/2025 Comments 4 4 - moderate (All drug screens are appropriate unless indicated otherwise) Risk Assessment: BRANDIE-7: No data to display (0-4) minimal anxiety, (5-9) mild anxiety, (10-14) moderate anxiety, (15-21) severe anxiety PHQ-9: 01/07/2021 09/28/2021 08/08/2022 PHQ-9 Score 5 3 7 Data saved with a previous flowsheet row definition (0-4) minimal depression, (5-9) mild depression, (10-14) [...] 98 74 - 99 mg/dL Final Comment: Location:[facility], [address] [place] [address], [address] The Accu-Chek Inform II glucose meter has [...] and ROS obtained by others. Physical Exam: 07/14/25 0810 Pulse: 77 Resp: 18 SpO2: 97% Physical Exam Vitals reviewed. Constitutional: General: She is not in acute distress. Appearance: She is not ill-appearing. HENT: Head: Normocephalic and atraumatic. Eyes: Conjunctiva/sclera: Conjunctivae normal. Cardiovascular: Pulses: Normal pulses. Pulmonary: Effort: Pulmonary effort is normal. No respiratory distress. Musculoskeletal: Lumbar back: Spasms and tenderness present. Decreased range of motion. Comments: Positive facet loading bilaterally Skin: General: Skin is warm and dry. Neurological: Mental Status: She is alert and oriented to person, place, and time. Psychiatric: Mood and Affect: Mood and affect normal. Behavior: Behavior normal. Behavior is cooperative. IMPRESSION: 59 year old female with a history of depression, diabetes, diffuse cystic mastopathy, fibroids, HTN, DJD, LBP, KAVON on CPAP, maylgai, cervicalgia, periodic limb movement disorder, HTN, HL, T2DM, lumbar spinal fusion c/b post-laminectomy syndrome c/b postlaminectomy syndrome s/p SCS implant s/p SCS battery exchange 06/2024 who presents regarding chronic neck and low back pain. - Chronic back pain with recent exacerbation of spasms over the past 2 weeks; current pain level 5/10. - History of L5 discectomy and spinal cord stimulator ([employer]) in place for 11 years; recent battery replacement 1 year ago. - Ordered thoracic and lumbar spine X-rays to assess for any structural changes and to evaluate stimulator leads. - Contact [employer] to arrange reprogramming of spinal cord stimulator. - Start Medrol Dosepak; instructed patient to hold diclofenac while on steroids. - Discontinue Flexeril; start tizanidine for muscle spasms. - Refill diclofenac for PRN use after steroid course. - Advised use of heat or cold packs in 20-minute intervals as tolerated for spasm relief. - Follow-up in 1 month to reassess pain control and response to interventions. Diagnoses: (M96.1) Postlaminectomy syndrome, lumbar region (primary encounter diagnosis) (M47.816) Lumbar spondylosis (M47.816) Facet arthropathy, lumbar PLAN: Jess Meeks would benefit from the following to reach personal goals for decreasing pain, improving function and work participation, and/or improving quality of life: Medications: Requested Prescriptions Signed Prescriptions Disp Refills diclofenac, EC, (VOLTAREN) 75 mg EC tablet 60 tablet 5 Sig: Take 1 tablet by mouth every 12 hours with food as needed for pain. tiZANidine (ZANAFLEX) 4 mg tablet 90 tablet 2 Sig: Take 1 tablet by mouth every 8 hours as needed. methylPREDNISolone (MEDROL, RICARDO,) 4 mg Dose-Pack 21 tablet 0 Sig: As pkg directs Interventional Procedures: None Studies: X-ray: Thoracic Spine, X-ray: Lumbar Spine Functional Sikhism: NONE Referrals: Refer to [employer] for reprogramming of SCS. Follow-up: 1 month Depending on response to the above plan, consider: Consider reinitiation and uptitration of gabapentin, CT versus MRI L-spine after SCS battery change (confirm if MRI conditional leads), lumbar MBB/RFA, lumbar AJIT Compliance and Clinic Policies Reviewed and/or Discussed Today: None Attribution: In addition to reviewing the information noted above, some elements copied from my most recent clinical note(s), including the physical exam (completed in entirety today), and the impression and plan sections, have been updated where appropriate. All reflect current medical decision making from today's date. Shelley Robertson APRN.TECHNICIAN BIOLOGICAL HEALTH Pain Management [facility], [facility] CNOV Observed: 07/14/2025 8:15 AM Status: COMPLETED Source: [facility] Office Visit (AGSPINE3) JESS MEEKS I ([id number]) 1965 F [facility] Date Time Provider Department 07/14/25 8:15 AM SHELLEY ROBERTSON During your visit today, we recorded the following information about you: Pulse Respiration PROGRESS Observed: 07/14/2025 8:08 AM Status: COMPLETED Source: [facility] HNO ID: [id number] Author: MARISOL VAZ LPN Service: ? Author Type: Licensed Nurse Type: Progress Notes Filed: 07/14/2025 12:57 Note Text: Review of Systems Constitutional: Positive for activity change. Negative for chills, fever and unexpected weight change. Gastrointestinal: Negative for bowel retention or incontinence Genitourinary: Negative for difficulty urinating. Negative for bladder retention or incontinence Musculoskeletal: Positive for arthralgias, back pain, gait problem and myalgias. Negative for joint swelling, neck pain and neck stiffness. Neurological: Negative for weakness, numbness and headaches. Psychiatric/Behavioral: Positive for sleep disturbance. Negative for dysphoric mood and suicidal ideas. The patient is not nervous/anxious. TYSONN Observed: 07/10/2025 12:00 AM Status: COMPLETED Source: [facility] Telephone (AGSPINE3) JESS MEEKS I ([id number]) 1965 F [facility] Date Time Provider Department 07/10/25 ONEL CALDERÓN [id number] During your visit today, we recorded the following information about you: Ruby Vencesy 07/10/2025 1:37 PM Signed ----- Message from Ariela P sent at 07/10/2025 1:35 PM EDT ----- Regarding: Spine and Pain / Onel Calderón AND Increased pain / Appointment Request Patient: Jess Meeks Date of : 1965 Primary Care Provider: Yung Padron MD, MD Patient has been identified by name and Date of (Y/N): y Patient: Jess Meeks Date of : 1965 Provider for this encounter: Yung Padron MD, MD Reason for the call/escalation: patient requesting appt before a trip she has coming up 08/23 Was Patient Referred to [facility]/Seek Emergency Treatment (Y/N): na Did Patient Agree (Y/N): na Was An Attempt Made To Transfer The Patient To The Office (Y/N): no Were You Able To Reach Someone At The Office (Y/N): na If Yes - Patient Was Transferred To (Caregivers Name): na If No - Which [facility] Leadership Control Inspector Did You Speak With Regarding This Patient: na Was an appointment scheduled (Y/N): no, no appts available with Dr. Calderón Reason patient was requesting visit (RFV/signs and symptoms/diagnosis) : patient states increased back pain and back spasms. Requesting appointment as soon as possible with Dr. Calderón, or any provider due to increased pain and spasms. Please call patient to schedule Person calling if other than patient: patient Return call to if other than patient: patient Best contact number: [phone] Thank you, Ariela Ramirez July 10, 2025 1:35 PM Ladi Mcnamara 07/10/2025 2:33 PM Signed Patient was called and rescheduled for a sooner appointment. Ladi Mcnamara Allergies As of Date: 07/10/2025 Noted Allergy Reaction ATORVASTATIN 03/10/2016 17 - [...] IBUPROFEN 06/05/2020 2 - Rash Date Reviewed: 07/20/2024 Reviewed by: Jules Sheffield MA - Fully Assessed Reason for Visit: Returning Patient's Call [[id number]] Prescriptions as of 07/10/2025 - diclofenac, EC, (VOLTAREN) 75 mg EC tablet Take 1 tablet by mouth every 12 hours with food as needed for pain. - acetaminophen (TYLENOL ARTHRITIS ORAL) Take by [...] 10 mg by mouth once daily. - mbugwbn-akryaeird-urccqhl D3 500 mg-5 mcg (200 unit) per [...] ZINC ORAL Take by mouth as needed. Meds Comments as of 05/22/2016: [place] Problem List As Of Date 07/10/2025 Noted Resolved Tobacco use disorder [F17.200] 01/07/2006 10/14/2016 Mixed hyperlipidemia [E78.2] 01/07/2006 SOMNOLENCE [R40.4] 01/07/2006 07/30/2016 INT HEMORRHOID W/O COMPL [K64.8] 01/07/2006 Essential hypertension [I10] 07/20/2006 DEPRESSIVE DISORDER NEC [F32.89] 09/22/2006 Allergic Rhinitis [J30.9] 05/01/2010 Fibroid uterus [D25.9] 04/14/2011 10/22/2013 Pelvic pain in female [R10.2] 04/14/2011 10/22/2013 Dysmenorrhea [N94.6] 04/14/2011 Postlaminectomy syndrome, lumbar region [M96.1] 02/03/2014 Myalgia and myositis, unspecified [WNY2795] 02/03/2014 Other chronic postoperative pain [G89.28] 02/03/2014 [...] cord stimulator (HCC) [T8*04/27/2024 Encounter Status:Closed by JANNETTE VENCES on 07/10/25 ALLERGIES DATE TYPE / CODE NAME / CODE REACTION SEVERITY SOURCE 08/08/2022 Environ/[id number] 06(SNOMED CT) SEASONAL ALLERGIES OTHER: SEE [facility] 06/05/2020 DRUG INGREDI/[id number] 03(SNOMED CT) IBUPROFEN RASH Low [facility] 07/25/2019 DRUG INGREDI/3183058 03(SNOMED CT) CYCLOSPORINE OTHER: SEE [facility] 01/13/2019 DRUG INGREDI/3232361 03(SNOMED CT) NAPROXEN HIVES [facility] 09/01/2017 DRUG INGREDI/2597782 03(SNOMED CT) PRAVASTATIN Myalgia [facility] 03/10/2016 DRUG INGREDI/5019705 03(SNOMED CT) ATORVASTATIN Myalgia [facility] 08/25/2006 DRUG INGREDI/9534757 03(SNOMED CT) BUPROPION [facility] 02/13/2006 DRUG INGREDI/7774455 03(SNOMED CT) SERTRALINE DIARRHEA [facility] ENCOUNTERS ADMIT/DISCHARGE ACCOUNT NUMBER ADMITTING ENCOUNTER CLASS LOC ATION SOURCE 07/14/2025 [id number] [facility] 07/14/2025/07/14/2025 [id number] [id number] PAYERS ENCOUNTER GUARANTOR PAYER SUBSCRIBER SOURCE 07/14/2025 Primary Insurance:[employer] ([employer])y Number: [id number] Date:[id number] Name:Osei MEEKS IDOB: [id number] [place] [address] [facility] 07/14/2025 Primary Insurance:WitsbitsPolicy Number: [id number] Date:[id number] Name:Osei MEEKS IDOB: [id number] [place] [address] [facility]
[2025-07-24 12:18] LABS: Hematocrit 42.2 % (37-47); Hemoglobin 13.9 g/dL (12.0-15.0); Immature Granulocytes Count 0.080 X10^3/uL (0.0-0.0); Mean Corp Hgb Conc 32.9 g/dL (32-36); Mean Corpuscular Volume 87.4 fL (81-99); Mean Platelet Vol. 10.9 fl (6.2-12.0); NRBC Flagged by Analyzer 0 % (0-5); Platelet Count 280 K/mm3 (150-450); RBC Distribution Width CV 13.1 % (11.6-14.6); RBC Distribution Width SD 41.9 fl (35.1-43.9); Red Blood Count 4.83 M/mm3 (4.2-5.4); White Blood Count 8.0 K/mm3 (4.4-11.0)
[2025-07-24 13:11] LABS: Creatinine, Urine (random) 80.60 mg/dL (28.00-217.00); Microalbumin,Random Urine < 12.0 mg/L (<20 mg/L)
[2025-07-24 13:29] LABS: AST(SGOT) 24 U/L (<=31); Alanine Aminotransfer ALT/SGPT 23 U/L (<=34); Albumin, Serum 4.5 g/dL (3.4-4.8); Alkaline Phosphatase 71 U/L (35-104); Anion Gap 13 (5-15); BUN 15 mg/dL (4-19); BUN/Creat Ratio 21.4 RATIO (10-20); Calcium,Total 9.7 mg/dL (7.6-11.0); Carbon Dioxide 22.2 mmol/L (21.0-32.0); Chloride 104 mmol/L (98-108); Cholesterol 158 mg/dL (<=200); Globulin 2.7 g/dL (2.2-4.2); Glucose 109 mg/dL (70-99); Low Density Lipoprotein Calc. 74 mg/dL; Potassium 4.4 mmol/L (3.3-5.1); Triglycerides 200 mg/dL; Very Low Density Lipoprotein 40 mg/dL (5-40); Vitamin D,25 Hydroxy 48.7 ng/mL (30-100); cholesterol:hdl ratio screen 3.61
== END | disposition home or self-care (01) ==
LOC: MFPLAB 09:38
PROVIDERS: PCP Family Medicine; Visit Provider Family Medicine
DX: E53.1 Pyridoxine deficiency (principal); E11.59 Type 2 diabetes mellitus with other circulatory complications; E55.9 Vitamin D deficiency, unspecified; I10 Essential (primary) hypertension
CPT/HCPCS: 36415; 80053; 80061; 82043; 82306; 82570; 83036; 85025